=== PATIENT | male | born 1940 | race Caucasian/White ===

== ENCOUNTER 2024-09-25 15:04 | Emergency (ER) | payer SELFPAY ==
--- NOTE | ~2024-09-25 | XR_ITS ---
XR chest 1V portable Ordering provider: Lukas Nash MD History: 84 years Male with . Weakness . Comparison: None. FINDINGS: MEDIASTINUM: The cardiac silhouette is not enlarged. Left tripolar pacemaker. LUNGS: No infiltrates, effusions or pneumothorax. OTHER: No free air under the diaphragm. IMPRESSION: No acute cardiopulmonary pathology. Reviewed, dictated and finalized at location A.
--- NOTE | ~2024-09-25 | CT_ITS ---
CT brain wo con Ordering provider: Lukas Nash MD History: 84 years Male with . Tremors . Comparison: None. Technique: CT of the head without contrast. Radiation reduction technique utilized. The dose-length p roduct was 681 mGy-cm. FINDINGS: BRAIN PARENCHYMA AND CSF SPACES: No midline shift, mass effect or hemorrhage. The brain parenchyma a nd CSF spaces are otherwise normal. VISUALIZED PARANASAL SINUSES: Well aerated. MASTOIDS: Well aerated. BONES: The bones appear intact. SOFT TISSUES: Visualized nasopharynx is normal. Superficial soft tissues are normal. IMPRESSION: No acute intracranial findings. Reviewed, dictated and finalized at location A.
[2024-09-25 14:58] VITALS: BP 154/85; PULSE 77; RESP 17; O2SAT 97
[2024-09-25 15:05] VITALS: BP 154/85; PULSE 77; RESP 20; TEMP 36.4; O2SAT 96
[2024-09-25 15:09] VITALS: PULSE 71
--- NOTE | 2024-09-25 15:55 | ECG_ITS ---
Test Date: 2024-09-25 16:12:55 Measurements Intervals [place] Rate: 63 P: 250 HI: 173 QRS: -11 QRSD: 146 T: 45 QT: 477 QTc: 490 Interpretive Statements ELECTRONIC ATRIAL PACEMAKER ELECTRONIC VENTRICULAR PACEMAKER VENTRICULAR PREMATURE COMPLEX BASELINE ARTIFACT- I, II, III, AVR, AVL, AVF, V1-V6 NO FURTHER INTERPRETATION IS POSSIBLE ATYPICAL ECG NO PRIOR ECG FOR COMPARISON Electronically Signed On 09-26-2024 07:29:04 CDT by Guillermo Celeste D.O.
--- OUTSIDE RECORDS SUMMARY | 2024-09-25 16:05 | XMS_ITS | Encounter Summary ---
Author Name [facility] Address [address] [place] [address] Care Team Providers Care Director News Name Role Phone ABIGAIL ÁLVAREZ Primary Care Provider Unavailabl e Insurance Providers: All historical and current Section Date Range: From patient's date of to the date document was created. This section includes the names of all active insurance providers for the patient. Insurance Provider Type of Coverage Plan Name Start of Policy Coverage End of Policy Coverage Group Number Member ID Insurance Provider's Telephone Number Policy Feldman's Name Patient's Relationship to Policy Feldman MEDICARE (WNR) MEDICARE ([place]) PART A Feb 07, 2007 PART A [id number] [phone] ALIYAH MANDEL PATIENT MEDICARE (WNR) MEDICARE (M) PART A Feb 07, 2007 PART A [id number] [phone] ALIYAH MANDEL PATIENT Selected Encounter This section includes the information on record at [place] for the Encounter. Date/Time Encounter Type Encounter Description Reason Provider Source Sep 13, 2024 02:00 PM OFF/OP EST OCTOBER X REQ PHY/QHP CIED DEVICES ICD-10-CM I47.20 Ventricular tachycardia, unspecified TERRELL GUO Encounter Template Text not used by [place] Assessments - Encounter Diagnoses This section includes the primary and secondary diagnoses documented for the Encounter. Date/Time Primary/Secondary Diagnosis Diagnosis Name Provider Source Sep 13, 2024 03:53 PM PRIMARY Ventricular tachycardia, unspecified MARY ANNE PEÑA [facility] Sep 13, 2024 03:53 PM SECONDARY Encntr for adjust and mgmt of automatic implntbl card defib MARY ANNE PEÑA [facility] Sep 13, 2024 03:53 PM SECONDARY Left bundle-branch block, unspecified MARY ANNE PEÑA [facility] Sep 13, 2024 03:53 PM SECONDARY Presence of automatic (implantable) cardiac defibrillator CAREY PEÑALIN [facility] Plan of Treatment: Future Appointments (+ 6 months) and Future Tests (+/- 45 days) The Plan of Treatment section includes future care activities for the patient from all [place] treatmentfacilities. This section includes future appointments and future orders which are active, pending or scheduled. Future Appointments This section includes appointments that were scheduled to occur 6 months from the date of the Encounter, up to a maximum of 20 appointments. The data comes from all [place] treatment facilities. Appointment Date/Time Appointment Type Appointme nt Facility Name October 08, 2024 10:30 AM AMBULATORY - MEDICINE [facility] October 12, 2024 09:00 AM AMBULATORY - NONE [address] [facility] October 12, 2024 10:00 AM AMBULATORY - NONE [address] [facility] October 25, 2024 02:00 PM AMBULATORY - SURGERY [facility] Nov 15, 2024 02:00 PM AMBULATORY - MEDICINE [facility] Dec 13, 2024 10:00 AM [facility] Dec 21, 2024 10:30 AM AMBULAT[facility] - MEDICINE [facility] Feb 15, 2025 10:00 AM [facility] Feb 15, 2025 11:00 AM AMBULATORY - NONE [facility] Active, Pending, and Scheduled Orders This section includes a listing of several types of active, pending, and scheduled orders, including clinic medications orders, diagnostic test orders, procedure orders and consult orders; where the start date of the order is 45 days before the date of the Encounter or 45 days after the date of theEncount. The data comes from all [place] treatment facilities. Test Date/Time Test Type Test Details Facility Name Aug 31, 2024 12:48 AM Laboratory - Blood Bank Order TYPE & SCREEN - LAB BLOOD,PINK/PURPLE (7-9ML) WC [facility] October 12, 2024 12:00 AM Laboratory - Chemi stry Order LIPID PROFILE(HDL,TRIG,CH OL,LDL) GREEN TOP TUBE PLASMA JUAN DAVID [facility] October 12, 2024 12:00 AM Laboratory - Chemi stry Order CMP-NONFASTING (CO) GREEN TOP TUBE PLASMA [facility] Lab Results: +/- 30 days of the encounter This section includes the Chemistry and Hematology Lab Results on record with [place] for the patient. Radiology Reports and Pathology Reports are provided separately, in subsequent sections. Lab Results This section contains the Chemistry/Hematology Results that were resulted 30 days before or 30 daysafter the date of the Encounter. Date/Time Source Result Type Result - Unit Interpretation Reference Range Specimen Type Comment Sep 01, 2024 03:14 AM [facility] MAGNESIUM (mg/dL) PLASMA Specimen Type: PLASMA No comment entered. Ordering Provider: LEEROY HUGHES Report Released Date/Time: Aug 31, 2024 09:28 AM Reporting Lab: [address] [phone] Performing Lab: [address] [phone] MAGNESIUM (mg/dL) 2.1 mg/dL 1.6-2.6 Sep 01, 2024 03:14 AM [facility] COMPREHENSIVE METABOLIC PANEL PLASMA Specimen Type: PLASMA No comment entered. Ordering Provider: LEEROY HUGHES Report Released Date/Time: Aug 31, 2024 09:28 AM Reporting Lab: [address] [phone] Performing Lab: [address] [phone] *CREATININE 1.12 mg/dL 0.70-1.30 UREA NITROGEN mg/dL 17 mg/dL 9-25 GLUCOSE 109 mg/dL H 72-99 SODIUM 138 meq/L 136-145 POTASSIUM 4.3 meq/L 3.5-5 CALCIUM (mg/dL) 9.4 mg/dL 8.4-10.4 PROTEIN,TOTAL 7.1 g/dL 6.0-8.6 ALBUMIN 4.3 g/dL 3.4-5.0 TOTAL BILIRUBIN 1.0 mg/dL 0.2-1.2 ASPARTATE TRANSAMINASE 23 U/L 5-34 ALANINE AMINOTRANSFERASE 9 U/L 8-40 CHLORIDE 108 meq/L H 98-107 CO2 21 meq/L L 22-31 ALKALINE PHOSPHATASE 58 U/L 40-150 EGFR (CKD-EPI 2020) 66 Sep 01, 2024 03:14 AM [facility] CBC & DIFF BLOOD Specimen Type: BLOOD No comment entered. Ordering Provider: LEEROY HUGHES Report Released Date/Time: Aug 31, 2024 09:28 AM Reporting Lab: [facility] [address] [facility] [phone] Performing Lab: [address] [phone] WBC 15.00 10*3/uL H 3.6-11.2 RBC 4.10 10*6/uL 4.10-5.70 HGB 13.6 g/dL 13.1-16.8 HCT 37.7 L 38.2-48.4 MCV 92.0 fL 80.0-100.0 MCH 33.2 pg 27.0-34.0 MCHC 36.1 g/dL H 33.0-36.0 PLATELET COUNT 166 10*3/uL 150-400 MPV 10.9 fL 7.5-11.2 RDW 12.1 11.8-15.1 LYMPHOCYTES, AUTO% 30.0 NEUTROPHILS, AUTO % 61.0 MONOCYTES, AUTO% 7.9 MONOCYTES, ABSOLUTE 1.19 10*3/uL H 0.19-0. 8 NEUTROPHILS, ABSOLUTE 9.13 10*3/uL H 2.10- 8.00 EOSINOPHILS, ABSOLUTE 0.05 10*3/uL 0.00- 0.60 BASOPHILS, ABSOLUTE 0.03 10*3/uL 0.00-0. 20 EOSINOPHILS, AUTO% 0.3 BASOPHILS, AUTO% 0.2 LYMPHOCYTES, ABSOLUTE 4.50 10*3/uL 0.77- 4.50 IMMATURE GRANS, ABSOLUTE 0.09 10*3/uL H 0. 00-0.05 IMMATURE GRANS, AUTO % 0.6 Aug 31, 2024 05:45 AM [facility] ANTI-Xa ([place]) BLOOD Specimen Type: BLOOD Comment: Critical Values: Unfractionated Heparin: > 1.0 IU/mL For Low Molecular Weight Heparin reference ranges contact lab. Ordering Provider: LARRY BARRIOS Report Released Date/Time: Aug 27, 2024 12:18 PM Reporting Lab: [place] [phone] Performing Lab: [place] [phone] ANTI-Xa (CO) <0.04 [IU]/mL 0.3-0.7 Aug 31, 2024 05:45 AM [facility] MAGNESIUM (mg/dL) PLASMA Specimen Ty pe: PLASMA No comment entered. Ordering Provider: LEEROY HUGHES Report Released Date/Time: Aug 30, 2024 11:25 AM Reporting Lab: [place] [phone] Performing Lab: [place] [phone] MAGNESIUM (mg/dL) 2.2 mg/dL 1.6-2.6 Aug 31, 2024 05:45 AM [facility] COMPREHENSIVE METABOLIC PANEL PLASMA Specimen Type: PLASMA No comment entered. Ordering Provider: LEEROY HUGHES Report Released Date/Time: Aug 30, 2024 11:25 AM Reporting Lab: [place] [phone] Performing Lab: [place] [phone] *CREATININE 1.04 mg/dL 0.70-1.30 UREA NITROGEN mg/dL 18 mg/dL 9-25 GLUCOSE 93 mg/dL 72-99 SODIUM 140 meq/L 136-145 POTASSIUM 4.5 meq/L 3.5-5 CALCIUM (mg/dL) 9.2 mg/dL 8.4-10.4 PROTEIN,TOTAL 7.0 g/dL 6.0-8.6 ALBUMIN 4.1 g/dL 3.4-5.0 TOTAL BILIRUBIN 0.7 mg/dL 0.2-1.2 ASPARTATE TRANSAMINASE 12 U/L 5-34 ALANINE AMINOTRANSFERASE 8 U/L 8-40 CHLORIDE 108 meq/L H 98-107 CO2 24 meq/L 22-31 ALKALINE PHOSPHATASE 56 U/L 40-150 EGFR (CKD-EPI 2020) 72 Aug 31, 2024 05:45 AM [facility] CBC & DIFF BLOOD Specimen Type: BLOOD No comment entered. Ordering Provider: LEEROY HUGHES Report Released Date/Time: Aug 30, 2024 11:25 AM Reporting Lab: [address] [phone] Performing Lab: [address] [phone] WBC 9.50 10*3/uL 3.6-11.2 RBC 4.12 10*6/uL 4.10-5.70 HGB 14.0 g/dL 13.1-16.8 HCT 38.2 38.2-48.4 MCV 92.7 fL 80.0-100.0 MCH 34.0 pg 27.0-34.0 MCHC 36.6 g/dL H 33.0-36.0 PLATELET COUNT 158 10*3/uL 150-400 MPV 10.9 fL 7.5-11.2 RDW 12.4 11.8-15.1 LYMPHOCYTES, AUTO% 30.8 NEUTROPHILS, AUTO % 60.3 MONOCYTES, AUTO% 7.2 MONOCYTES, ABSOLUTE 0.68 10*3/uL 0.19-0. 8 NEUTROPHILS, ABSOLUTE 5.73 10*3/uL 2.10- 8.00 EOSINOPHILS, ABSOLUTE 0.06 10*3/uL 0.00- 0.60 BASOPHILS, ABSOLUTE 0.04 10*3/uL 0.00-0. 20 EOSINOPHILS, AUTO% 0.6 BASOPHILS, AUTO% 0.4 LYMPHOCYTES, ABSOLUTE 2.93 10*3/uL 0.77- 4.50 IMMATURE GRANS, ABSOLUTE 0.07 10*3/uL H 0. 00-0.05 IMMATURE GRANS, AUTO % 0.7 Aug 30, 2024 04:23 AM [facility] CMP-NONFASTING ([place]) PLASMA Specimen Type: PLASMA No comment entered. Ordering Provider: LARRY BARRIOS Report Released Date/Time: Aug 29, 2024 12:07 PM Reporting Lab: [address] [phone] Performing Lab: [address] [phone] *CREATININE 1.10 mg/dL 0.70-1.30 UREA NITROGEN mg/dL 20 mg/dL 9-25 GLUCOSE 95 mg/dL 72-99 SODIUM 138 meq/L 136-145 POTASSIUM 4.4 meq/L 3.5-5 CALCIUM (mg/dL) 8.6 mg/dL 8.4-10.4 PROTEIN,TOTAL 6.4 g/dL 6.0-8.6 ALBUMIN 3.8 g/dL 3.4-5.0 TOTAL BILIRUBIN 0.9 mg/dL 0.2-1.2 ASPARTATE TRANSAMINASE 13 U/L 5-34 ALANINE AMINOTRANSFERASE 8 U/L 8-40 CHLORIDE 110 meq/L H 98-107 CO2 21 meq/L L 22-31 ALKALINE PHOSPHATASE 52 U/L 40-150 EGFR (CKD-EPI 2020) 67 Aug 30, 2024 04:23 AM [facility] CBC & DIFF BLOOD Specimen Type: BLOOD No comment entered. Ordering Provider: LARRY BARRIOS Report Released Date/Time: Aug 29, 2024 12:07 PM Reporting Lab: [facility] [address] [facility] [phone] Performing Lab: [address] [phone] WBC 8.80 10*3/uL 3.6-11.2 RBC 3.99 10*6/uL L 4.10-5.70 HGB 13.4 g/dL 13.1-16.8 HCT 37.0 L 38.2-48.4 MCV 92.7 fL 80.0-100.0 MCH 33.6 pg 27.0-34.0 MCHC 36.2 g/dL H 33.0-36.0 PLATELET COUNT 154 10*3/uL 150-400 MPV 10.8 fL 7.5-11.2 RDW 12.3 11.8-15.1 LYMPHOCYTES, AUTO% 30.9 NEUTROPHILS, AUTO % 58.5 MONOCYTES, AUTO% 8.5 MONOCYTES, ABSOLUTE 0.75 10*3/uL 0.19-0. 8 NEUTROPHILS, ABSOLUTE 5.17 10*3/uL 2.10- 8.00 EOSINOPHILS, ABSOLUTE 0.08 10*3/uL 0.00- 0.60 BASOPHILS, ABSOLUTE 0.03 10*3/uL 0.00-0. 20 EOSINOPHILS, AUTO% 0.9 BASOPHILS, AUTO% 0.3 LYMPHOCYTES, ABSOLUTE 2.73 10*3/uL 0.77- 4.50 IMMATURE GRANS, ABSOLUTE 0.08 10*3/uL H 0. 00-0.05 IMMATURE GRANS, AUTO % 0.9 Aug 29, 2024 04:23 AM [facility] CMP-NONFASTING (CO) PLASMA Specimen Type: PLASMA No comment entered. Ordering Provider: LARRY BARRIOS Report Released Date/Time: Aug 28, 2024 10:54 AM Reporting Lab: [address] Performing Lab: [address] *CREATININE 1.04 mg/dL 0.70-1.30 UREA NITROGEN mg/dL 15 mg/dL 9-25 GLUCOSE 95 mg/dL 72-99 SODIUM 139 meq/L 136-145 POTASSIUM 4.7 meq/L 3.5-5 CALCIUM (mg/dL) 8.8 mg/dL 8.4-10.4 PROTEIN,TOTAL 6.7 g/dL 6.0-8.6 ALBUMIN 3.9 g/dL 3.4-5.0 TOTAL BILIRUBIN 0.7 mg/dL 0.2-1.2 ASPARTATE TRANSAMINASE 17 U/L 5-34 ALANINE AMINOTRANSFERASE 8 U/L 8-40 CHLORIDE 107 meq/L 98-107 CO2 23 meq/L 22-31 ALKALINE PHOSPHATASE 50 U/L 40-150 EGFR (CKD-EPI 2020) 72 Aug 29, 2024 04:23 AM [facility] CBC & DIFF BLOOD Specimen Type: BLOOD No comment entered. Ordering Provider: LARRY BARRIOS Report Released Date/Time: Aug 28, 2024 10:54 AM Reporting Lab: [address] [phone] Performing Lab: [address] [phone] WBC 8.50 10*3/uL 3.6-11.2 RBC 4.28 10*6/uL 4.10-5.70 HGB 14.3 g/dL 13.1-16.8 HCT 39.7 38.2-48.4 MCV 92.8 fL 80.0-100.0 MCH 33.4 pg 27.0-34.0 MCHC 36.0 g/dL 33.0-36.0 PLATELET COUNT 164 10*3/uL 150-400 MPV 11.1 fL 7.5-11.2 RDW 12.6 11.8-15.1 LYMPHOCYTES, AUTO% 27.9 NEUTROPHILS, AUTO % 62.3 MONOCYTES, AUTO% 8.4 MONOCYTES, ABSOLUTE 0.72 10*3/uL 0.19-0. 8 NEUTROPHILS, ABSOLUTE 5.32 10*3/uL 2.10- 8.00 EOSINOPHILS, ABSOLUTE 0.05 10*3/uL 0.00- 0.60 BASOPHILS, ABSOLUTE 0.02 10*3/uL 0.00-0. 20 EOSINOPHILS, AUTO% 0.6 BASOPHILS, AUTO% 0.2 LYMPHOCYTES, ABSOLUTE 2.38 10*3/uL 0.77- 4.50 IMMATURE GRANS, ABSOLUTE 0.05 10*3/uL 0. 00-0.05 IMMATURE GRANS, AUTO % 0.6 Aug 28, 2024 04:50 AM [facility] T4 FREE SERUM Specimen Type: SERUM No comment entered. Ordering Provider: LARRY BARRIOS Report Released Date/Time: Aug 27, 2024 03:47 PM Reporting Lab: [address] [phone] Performing Lab: [address] [phone] T4 FREE 0.8 ng/dL 0.7-1.48 Aug 28, 2024 04:50 AM [facility] TSH SERUM Specimen Type: SERUM No comment entered. Ordering Provider: LARRY BARRIOS Report Released Date/Time: Aug 27, 2024 03:47 PM Reporting Lab: [address] [phone] Performing Lab: [place] [phone] *TSH 1.66 u[IU]/mL 0.47-5.00 Aug 28, 2024 04:50 AM [facility] CMP-NONFASTING ([place]) PLASMA Specimen Type: PLASMA No comment entered. Ordering Provider: LUIS YANES Report Released Date/Time: Aug 28, 2024 03:03 AM Reporting Lab: [address] [phone] Performing Lab: [address] [phone] *CREATININE 0.87 mg/dL 0.70-1.30 UREA NITROGEN mg/dL 13 mg/dL 9-25 GLUCOSE 92 mg/dL 72-99 SODIUM 138 meq/L 136-145 POTASSIUM 4.2 meq/L 3.5-5 CALCIUM (mg/dL) 8.5 mg/dL 8.4-10.4 PROTEIN,TOTAL 6.5 g/dL 6.0-8.6 ALBUMIN 3.7 g/dL 3.4-5.0 TOTAL BILIRUBIN 0.7 mg/dL 0.2-1.2 ASPARTATE TRANSAMINASE 24 U/L 5-34 ALANINE AMINOTRANSFERASE 9 U/L 8-40 CHLORIDE 109 meq/L H 98-107 CO2 22 meq/L 22-31 ALKALINE PHOSPHATASE 51 U/L 40-150 EGFR (CKD-EPI 2020) 86 Aug 28, 2024 04:50 AM [facility] CBC & DIFF BLOOD Specimen Type: BLOOD No comment entered. Ordering Provider: LUIS YANES Report Released Date/Time: Aug 28, 2024 03:03 AM Reporting Lab: [address] [phone] Performing Lab: [address] [phone] WBC 9.20 10*3/uL 3.6-11.2 RBC 4.23 10*6/uL 4.10-5.70 HGB 14.1 g/dL 13.1-16.8 HCT 39.6 38.2-48.4 MCV 93.6 fL 80.0-100.0 MCH 33.3 pg 27.0-34.0 MCHC 35.6 g/dL 33.0-36.0 PLATELET COUNT 174 10*3/uL 150-400 MPV 10.7 fL 7.5-11.2 RDW 12.5 11.8-15.1 LYMPHOCYTES, AUTO% 28.9 NEUTROPHILS, AUTO % 60.5 MONOCYTES, AUTO% 9.4 MONOCYTES, ABSOLUTE 0.86 10*3/uL H 0.19-0. 8 NEUTROPHILS, ABSOLUTE 5.55 10*3/uL 2.10- 8.00 EOSINOPHILS, ABSOLUTE 0.05 10*3/uL 0.00- 0.60 BASOPHILS, ABSOLUTE 0.02 10*3/uL 0.00-0. 20 EOSINOPHILS, AUTO% 0.5 BASOPHILS, AUTO% 0.2 LYMPHOCYTES, ABSOLUTE 2.66 10*3/uL 0.77- 4.50 IMMATURE GRANS, ABSOLUTE 0.05 10*3/uL 0. 00-0.05 IMMATURE GRANS, AUTO % 0.5 Aug 27, 2024 02:14 PM [facility] ACT.CLOTTING TIME BLOOD Specimen Ty pe: BLOOD No comment entered. Ordering Provider: JEROME DOTY Report Released Date/Time: Aug 27, 2024 02:44 PM Reporting Lab: [address] [address] Performing Lab: [place] [phone] ACT.CLOTTING TIME 153 s H 74-137 Aug 27, 2024 11:30 AM [facility] hsTROP-CO PLASMA Specimen Type: PLASMA Comment: TROP-T-HS Called to: Velvet Bartlett RN at: 1213 on: 08/27/24 by: Jasvir Cunningham Result read back to comply with Joint Commission Ordering Provider: LARRY BARRIOS Report Released Date/Time: Aug 27, 2024 09:20 AM Reporting Lab: [place] [phone] Performing Lab: [place] [phone] hsTROP-CO 1017 HH See Interpretation Aug 27, 2024 08:55 AM [facility] MRSA SURVL NARES DNA NARES Specimen Type: NARES No comment entered. Ordering Provider: JEROME DOTY Report Released Date/Time: Aug 27, 2024 08:46 AM Reporting Lab: [place] [phone] Performing Lab: [place] [phone] MRSA SURVL NARES DNA Negative Negative Aug 27, 2024 08:20 AM [facility] URINALYSIS ([place],EK) URINE Spec imen Type: URINE Comment: Microscopic not indicated Ordering Provider: RYAN HALL Report Released Date/Time: Aug 27, 2024 06:51 AM Reporting Lab: [place] [phone] Performing Lab: [place] [phone] *URINE COLOR Light-Yellow *URINE APPEARANCE Clear Clear *URINE PROTEIN Negative mg/dL Negative-T race *URINE LEUKOCYTE Negative Negative *URINE NITRITE Negative Negative *URINE BLOOD Negative Negative *URINE GLUCOSE Negative mg/dL Negative *URINE KETONES Negative mg/dL Negative *URINE PH 7.0 5.0-8.0 *URINE SPECIFIC GRAVITY 1.011 1.005-1. 030 *URINE BILIRUBIN Negative Negative *URINE UROBILINOGEN Normal mg/dL Normal Aug 27, 2024 06:40 AM [facility] PT/INR PLASMA Specimen Type: PLASMA No comment entered. Ordering Provider: RYAN HALL Report Released Date/Time: Aug 27, 2024 06:51 AM Reporting Lab: [address] [phone] Performing Lab: [address] [address] *INR 1.0 {INR} *PT 11.4 s 9.4-12.5 Aug 27, 2024 06:40 AM [facility] APTT PLASMA Specimen Type: PLASMA No comment entered. Ordering Provider: RYAN HALL Report Released Date/Time: Aug 27, 2024 06:51 AM Reporting Lab: [place] [phone] Performing Lab: [place] [phone] APTT 29.8 s 26.7-39.9 Aug 27, 2024 06:40 AM [facility] COMPREHENSIVE METABOLIC PANEL PLASMA Specimen Type: PLASMA No comment entered. Ordering Provider: RYAN HALL Report Released Date/Time: Aug 27, 2024 06:51 AM Reporting Lab: [address] [phone] Performing Lab: [place] [phone] *CREATININE 1.14 mg/dL 0.70-1.30 UREA NITROGEN mg/dL 17 mg/dL 9-25 GLUCOSE 156 mg/dL H 72-99 SODIUM 140 meq/L 136-145 POTASSIUM 4.1 meq/L 3.5-5 CALCIUM (mg/dL) 9.4 mg/dL 8.4-10.4 PROTEIN,TOTAL 8.0 g/dL 6.0-8.6 ALBUMIN 4.6 g/dL 3.4-5.0 TOTAL BILIRUBIN 0.7 mg/dL 0.2-1.2 ASPARTATE TRANSAMINASE 19 U/L 5-34 ALANINE AMINOTRANSFERASE 11 U/L 8-40 CHLORIDE 108 meq/L H 98-107 CO2 21 meq/L L 22-31 ALKALINE PHOSPHATASE 68 U/L 40-150 EGFR (CKD-EPI 2020) 64 Aug 27, 2024 06:40 AM [facility] hsTROP-CO PLASMA Specimen Type: PLASMA No comment entered. Ordering Provider: RYAN HALL Report Released Date/Time: Aug 27, 2024 06:51 AM Reporting Lab: [place] [phone] Performing Lab: [place] [phone] hsTROP-CO 15 See Interpretation Aug 27, 2024 06:40 AM [facility] CBC & DIFF BLOOD Specimen Type: BLOOD No comment entered. Ordering Provider: RYAN HALL Report Released Date/Time: Aug 27, 2024 06:51 AM Reporting Lab: [place] [phone] Performing Lab: [place] [phone] WBC 15.70 10*3/uL H 3.6-11.2 RBC 4.80 10*6/uL 4.10-5.70 HGB 15.9 g/dL 13.1-16.8 HCT 44.9 38.2-48.4 MCV 93.5 fL 80.0-100.0 MCH 33.1 pg 27.0-34.0 MCHC 35.4 g/dL 33.0-36.0 PLATELET COUNT 236 10*3/uL 150-400 MPV 11.1 fL 7.5-11.2 RDW 12.5 11.8-15.1 NEUTROPHILS 55.6 LYMPHOCYTES 13.9 MONOCYTES 5.2 BASOPHILS 0.9 MYELOCYTES 0.9 ANISOCYTOSIS 1+ ATYPICAL LYMPHOCYTES 23.5 PLT (ESTM)-CO/EK Adequate ADEQUATE NEUTROPHILS, ABSOLUTE(M) 8.73 10*3/uL H 2. 10-8.00 IMMATURE GRANS, ABSOLUTE(M) 0.14 H 0.00 -0.05 LYMPHOCYTES, ABSOLUTE(M) 5.87 10*3/uL H 0. 77-4.50 MONOCYTES, ABSOLUTE(M) 0.82 10*3/uL H 0.19 -0.80 BASOPHILS, ABSOLUTE(M) 0.14 10*3/uL 0.00 -0.20 Aug 27, 2024 06:40 AM [facility] NTproBNP ([place]) PLASMA Specimen Typ e: PLASMA No comment entered. Ordering Provider: RYAN HALL Report Released Date/Time: Aug 27, 2024 06:51 AM Reporting Lab: [place] [phone] Performing Lab: [address] [phone] NTproBNP ([place]) 410 pg/mL -See Interpre tation Aug 27, 2024 06:40 AM [facility] PATHOLOGIST REVIEW BLOOD Specimen T ype: BLOOD Comment: Reviewed by Dr. Chepe Yu: Reactive Lymphocytes. Ordering Provider: RYAN HALL Report Released Date/Time: Aug 27, 2024 06:51 AM Reporting Lab: [address] [phone] Performing Lab: [address] [phone] PATHOLOGIST REVIEW comment Aug 27, 2024 06:40 AM [facility] ANTI-Xa ([place]) BLOOD Specimen Type: BLOOD Comment: Critical Values: Unfractionated Heparin: > 1.0 IU/mL For Low Molecular Weight Heparin reference ranges contact lab. Ordering Provider: RYAN HALL Report Released Date/Time: Aug 27, 2024 07:24 AM Reporting Lab: [address] [phone] Performing Lab: [address] [address] ANTI-Xa ([place]) <0.04 [IU]/mL 0.3-0.7 Social History: Smoking Status (Most current) and Tobacco Use (All prior to encounter date) This section includes the most current, and the historical, smoking and tobacco- related health factors from the [facility] facility where the Encounter took place. Current Smoking Status This section includes the most current smoking, or tobacco-related health factor, from the [facility] facility where the Encounter took place. Date/Time Current Smoking Status Comment [place] [facility] Apr 30, 2023 01:00 PM VA-TOBACCO FORMER USER [facility] Tobacco Use History This section includes a history of the smoking, or tobacco-related health factors, that were collected on or before the date of the Encounter. The data comes from the [facility] facility where the Encounter took place. Date/Time Smoking Status/Tobacco Use Comment F acility Apr 30, 2023 01:00 PM VA-TOBACCO QUIT 15 YRS OR MORE [facility] Apr 04, 2022 09:15 AM VA-TOBACCO FORMER USER [facility] Apr 04, 2022 09:15 AM VA-TOBACCO QUIT 15 YRS OR MORE [facility] Jul 18, 2021 10:13 AM INPT TOBACCO SCREENED NEGATIVE [facility] Apr 27, 2021 07:00 AM INPT TOBACCO SCREENED NEGATIVE [facility] October 31, 2020 02:30 PM INPT TOBACCO SCREENED NEGATIVE [facility] October 08, 2020 10:22 AM INPT TOBACCO SCREENED NEGATIVE [facility] October 07, 2020 07:22 AM VA-TOBACCO FORMER USER [facility] Sep 30, 2020 11:06 AM INPT TOBACCO SCREENED NEGATIVE [facility] Sep 29, 2020 04:05 PM VA-TOBACCO NEVER USED [facility] Jan 17, 2020 10:21 AM VA-TOBACCO FORMER USER [facility] Jan 17, 2020 10:21 AM VA-TOBACCO QUIT 15 YRS OR MORE [facility] Advance Directives: All historical and current Section Date Range: From patient's date of to the date document was created. This section includes ALL of a patient's completed or amended [place] Advance and Rescinded Directives. The entries below indicate that a directive exists for the patient, but an actual copy is not included with this document. The data comes from all [facility]. Date Advance Directives Provider Source October 22, 2022 ADVANCE DIRECTIVE DISCUSSION ARGELIA CHAVEZ [facility] Apr 04, 2022 ADVANCE DIRECTIVE DISCUSSION RAY ROQUE [facility] Sep 30, 2020 ADVANCE DIRECTIVE DISCUSSION ILYA BROWN [facility] Jul 26, 2020 ADVANCE DIRECTIVE DISCUSSION FABY TAMEZ [facility] Apr 17, 2020 ADVANCE DIRECTIVE DISCUSSION LINETTE RAMIREZ [facility] Jan 17, 2020 ADVANCE DIRECTIVE DISCUSSION ASHLEYDA DIANA MCKEON [facility] Feb 24, 2009 ADVANCE DIRECTIVE HECTOR [facility] Radiology Reports: +/- 30 days of the encounter Radiology Reports For cases when an order for radiology services may have been completed prior to the date of the Encounter, the report list includes the Radiology Reports that were completed up to 30 days before dateof the Encounter. For cases when an order for radiology services may have been completed after the date of the Encounter, the report list also includes the Radiology Reports that were completed up to30 days after date of the Encounter. The data comes from all [facility] treatment facilities. 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 Report Status: Verified Date Reported: SEP 01, 2024 Date Verified: SEP 01, 2024 Taker Off Hemp Fiber E-Sig:/ES/Aubrie Garcia MD PhD Report: History: Pacemaker placement. 2 views of the chest. Comparison: 08/31/2024 through 08/27/2024. Findings: No pneumothorax. Lungs are clear. 3-lead cardiac generator placement without evidence of complication. Cardiac size, pulmonary vessels, and soft tissues are unremarkable. Atherosclerosis. Osseous structures demonstrate degenerative changes. Impression: Cardiac generator placement without complication. 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 Single view of the chest. Comparison: 08/31/2024. Findings: No pneumothorax. Lungs are clear. 3-lead cardiac generator placement without evidence of complication. Cardiac size, pulmonary vessels, and soft tissues are unremarkable. Atherosclerosis. Osseous structures demonstrate degenerative changes. Impression: Cardiac generator placement without complication. READING PHYSICIAN: Aubrie Garcia 09/01/2024 7:21 AM Primary Diagnostic Code: NO ALERT REQUIRED Primary Interpreting Staff: Aubrie Garcia MD PhD, CHIEF, CLINICAL SUPPORT (Taker Off Hemp Fiber) /AUBRIE VELEZ [facility] Aug 31, 2024 05:05 AM CHEST 1 VIEW: ALIYAH MANDEL [id number] -1940 M Exm Date: AUG 31, 2024@05:05 Req Phys: LEEROY HUGHES Loc: ICU PCU MED-CO/08-31-2024@07:3 Img Loc: CO-CASE SUPERVISOR Service: [facility] [place] [address] (Case [id number] COMPLETE) CHEST 1 VIEW (RAD Detailed) CPT:41396 Reason for Study: Assess pulmonary function s/p pacemaker AICD placement Clinical History: Report Status: Verified Date Reported: AUG 31, 2024 Date Verified: AUG 31, 2024 Taker Off Hemp Fiber E-Sig:/SANTIAGO/Aubrie Garcia MD PhD Report: History: AICD placement. Single AP portable view of the chest was obtained. Comparison: 08/27/2024. Findings: Unchanged benign calcified granuloma in the right upper lobe. Lungs are otherwise clear. Heart is normal in size and contour. Pulmonary vessels are normal in size and caliber. Osseous and soft tissues are normal. Impression: No acute findings. READING PHYSICIAN: Aubrie Garcia 08/31/2024 7:27 AM Primary Diagnostic Code: NO ALERT REQUIRED Primary Interpreting Staff: Aubrie Garcia MD PhD, CHIEF, CLINICAL SUPPORT (Taker Off Hemp Fiber) /AUBRIE VELEZ [facility] Aug 27, 2024 06:51 AM CHEST 1 VIEW: ALIYAH MANDEL [id number] -1940 M Exm Date: AUG 27, 2024@06:51 Req Phys: RYAN HALL Loc: CO-ED (Req'g Loc) Img Loc: CO-CASE SUPERVISOR Service: Unknown [place] [address] (Case [id number] COMPLETE) CHEST 1 VIEW (RAD Detailed) CPT:42118 Proc Modifiers : PORTABLE Reason for Study: vtach Clinical History: If ordering Portable X-Ray call Tech at [id number] for prompt response Report Status: Verified Date Reported: AUG 27, 2024 Date Verified: AUG 27, 2024 Taker Off Hemp Fiber E-Sig:/ES/Aubrie Garcia MD PhD Report: History: Ventricular tachycardia. Single view of the chest. Comparison: 05/20/2023. Findings: Lungs are clear. Mild cardiomegaly without pulmonary edema. Soft tissues are unremarkable. Atherosclerosis. Osseous structures demonstrate degenerative changes. Impression: Mild cardiomegaly without pulmonary edema. READING PHYSICIAN: Aubrie Garcia 08/27/2024 7:29 AM Primary Diagnostic Code: NO ALERT REQUIRED Primary Interpreting Staff: Aubrie Garcia MD PhD, CHIEF, CLINICAL SUPPORT (Taker Off Hemp Fiber) /MDT AUBRIE GARCIA [facility] Encounter Notes: All associated encounter notes This section contains the clinical notes associated to the Encounter. Date/Time Encounter Note(s) Provider Source Sep 13, 2024 02:02 PM ELECTROPHYSIOLOGY NOTE: LOCAL TITLE: CO-CARDIO EP PACEMAKER CLINIC NOTE STANDARD TITLE: ELECTROPHYSIOLOGY NOTE DATE OF NOTE: SEP 13, 2024@14:02 ENTRY DATE: SEP 13, 2024@14:02:42 AUTHOR: MARY ANNE PEÑA COSIGNER: URGENCY: STATUS: COMPLETED CO-CARDIO EP PACEMAKER CLINIC NOTE Has ADDENDA CLINIC VISIT FOR CARDIOVASCULAR IMPLATABLE ELECTRONIC DEVICE (CIED) MANAGEMENT ONLY Date: 09/13/2024 REASON FOR DEVICE CLINIC VISIT This 84 year old MALE presents to the CIED clinic today for wound check and in-office interrogation of his recently implanted Medtronic REMELT OPERATOR- D. DEVICE HISTORY Medtronic REMELT OPERATOR-D was implanted by Dr. Perry on 08/31/2024 for secondary prevention of sudden cardiac related to sustained monomorphic VT. History of reduced ejection fraction and chronic left bundle branch block. The patient is registered in the [place] National Cardiac Device Surveillance Program(NCDSP) portal and is going to participate in our 90-day CIED remote monitoring program. PATIENT ASSESSMENT/COMMENTS The patient denies any defibrillator or remote monitoring related issues or concerns. Patient does report that he needs help setting up the [employer] oscar today while in clinic. Defibrillator pocket site well approximated with surgical glue present over the incision. Bruising and pocket edema noted. No redness or drainage seen. - Picture of incision has been captured and placed in CPRS for documentation. PAST MEDICAL HISTORY Active Problem(s): Coronary arteriosclerosis History of placement of stent for coronary artery disease Comment: Multiple stents Benign essential hypertension Benign prostatic hypertrophy with outflow obstruction H/O: angina pectoris Hyperlipidemia Aortic valve regurgitation Current drinker Hiatal hernia GERD - Gastro-Esophageal Reflux Disease (SCT [id number]) Constipation Exposure to potentially hazardous substance Difficulty in Walking, not elsewhere classified ACTIVE MEDICATIONS Admission Medication Reconciliation Outpatient includes Prescriptions and Non-VA meds Inpatient includes Unit Dose and IV Medications Ordered for Both Outpatient and Inpatient ------ ...None Outpt Meds with No Corresponding Inpt Meds ---- Amiodarone hcl (pacerone) 200mg tab 400mg 2 tablets po daily Aspirin 81mg ec tab (non-va) 81mg mouth once a day Carboxymethylcellulose 0.5%(pf)op kandice ud 1 drop both eyes qid Cephalexin 500mg cap 1 capsule po bid Cholecalcif 25mcg (d3-1,000unit) tab 1 tablet po qam Cyanocobalamin 1000mcg tab 1 tablet po qam Isosorbide mononitrate 120mg sa tab 1 tablet po qday Lisinopril 20mg tab 10mg 0.5 tablet po qam Metoprolol succinate 50mg sa tab 25mg 0.5 tablet po qam Nitroglycerin 0.4mg sl tab 1 tablet sl qam prn Omeprazole 20mg ec cap 1 capsule po qam Ranolazine 1000mg sa tab 1 tablet po bid Rosuvastatin ca 40mg tab 1 tablet po qhs Spironolactone 25mg tab 1 tablet po qam Tamsulosin hcl 0.4mg cap 1 capsule po qday Inpt Meds Only (that are not on Outpt) ------ ...None DEVICE INTERROGATION VENDOR: Gengo MODEL: Jarreau w/serial number [id number] DOI: 08/31/2024 UNDERLYING RHYTHM: SB MODE: DDDR LR: 60 bpm UR: 130 bpm BATTERY: % REMAININ.0 years Defib IMP: 66 ohms. P WAVE: 3.9mV IMP: 418 ohms THRESHOLD: 1.0V @ 0.4ms A-PACED: 97% V-PACED: 99.7% R WAVE: 8.3mV IMP: 361 ohms THRESHOLD: 0.75V @ 0.4ms LV IMP: 665 ohms THRESHOLD: 1.25V @ 0.4ms. Mode Switch: - 0.0% COMMENTS: - No VT/VF noted. - 10.2 PVC/hr CHANGES: - VT Monitor zone ON at 133 bpm. - LV Amplitude Safety Margin from +Auto to +0.5V. - Weekly ATP alert at 1/week. - AT/AF Episode Alerts ON. - Monitored VT Episode Alert ON. DEVICE ASSESSMENT AND PLAN 1. Properly functioning Medtronic REMELT OPERATOR-D - continue 90-day remote monitoring. - patient provided education regarding device function/interrogation findings. - Leads and Device are MRI conditional 6 weeks post implant. 2. Went over current restrictions: - Continue to monitor incision site for redness, edema, and drainage. - If present contact the office JUAN DAVID. - Okay to shower, but no scrubbing incision site, or no soap/lotion near incision site. - No lifting more than 20 lbs with left arm for another 2 weeks. - Okay to sleep without sling. - No swimming, hot tubs, etc. until wound completely healed. - No lifting left/right arm greater than 90 degrees or reaching behind the back for another 2-4 weeks. 3. Remote Monitoring - Discussed remote monitoring via [facility]. - Went over every 91 day summary reports and alerts. - Alerted that patient will not be contacted unless something abnormal is found and further work-up is needed. - Discussed importance of setting up the [employer] [facility] Oscar and keeping it open in the background. - Discussed contacting Medtronic if unable to set up. - Attempted to help patient set-up the Oscar while in clinic but unable to download the [employer] oscar due to patient not knowing his [employer] password. - Have asked patient to go home and have family help them set it up JUAN DAVID. 4. CIED ICD Shock Plan - Went over what to do if patient experiences: a.) 1 shock vs. b.) 2+ shocks - Advised when to call device nurse vs. 911 - Demonstrated device toning. - Shock Plan Handout given. - Device RN Contact Information Given. 5. The patient follows with Hilaria Huang NP in the Cardiology Clinic and will follow-up with Dr. Perry in the Electrophysiology Clinic. Followup appointments/consults/tests: C DEVICE CLINIC: 3 months in EP 2 w/MDT ICD. 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 This device RN works in collaboration with EP providers and all in-office and remote CIED interrogations are reviewed in detail with an EP provider for recommendations and orders for CIED programming changes if indicated. EP provider added as signer for review. /santiago/ MARY ANNE PEÑA REGISTERED NURSE Signed: 09/13/2024 15:53 Receipt Acknowledged By: 09/19/2024 15: /es/ TERRELL GUO Nurse Practitioner 09/19/2024 ADDENDUM STATUS: COMPLETED Reviewed in office device interrogation in detail with device RN and agree with above findings. /santiago/ TERRELL GUO Nurse Practitioner Signed: 09/19/2024 15:07 MARY ANNE PEÑA [facility]
--- OUTSIDE RECORDS SUMMARY | 2024-09-25 16:05 | XMS_ITS | Encounter Summary ---
Author Name [facility] Organization [facility] Address [address] [place] [address] Care Team Providers Care Chip Bin Operator Name Role Phone HENRI ABIGAIL Primary Care Provider Unavailabl e Insurance Providers: [...] PART A Feb 07, 2007 PART A [id number] [phone] ALIYAH MANDEL PATIENT MEDICARE (WNR) MEDICARE (M) PART A Feb 07, 2007 PART A [id number] [phone] TEQUILA ALIYAH PATIENT Selected Encounter This section includes the information on record at ID for the Encounter. Date/Time Encounter Type Encounter Description Reason Provider Source Aug 27, 2024 01:00 PM OCCLUSIVE DEVICE IN VEIN ART CARDIAC CATHETERIZATION ICD-10-CM I47.20 Ventricular tachycardia, unspecified DAMARI MASON IHToni Encounter Template Text not used by ID Assessments - Encounter Diagnoses This section includes the primary and secondary diagnoses documented for the Encounter. Date/Time Primary/Secondary Diagnosis Diagnosis Name Provider Source Aug 30, 2024 08:44 AM PRIMARY Ventricular tachycardia, unspecified EULALIA SERVIN [facility] Aug 30, 2024 08:44 AM SECONDARY Chest pain, unspecified EULALIA SERVIN [facility] Plan of Treatment: Future Appointments (+ 6 months) and Future Tests (+/- 45 days) The Plan of Treatment section includes future care activities for the patient [facility] This section includes future appointments and future orders which are active, pending or scheduled. Future Appointments This section includes appointments that were scheduled to occur 6 months from the date of the Encounter, up to a maximum of 20 appointments. The data comes from all [facility]. Appointment Date/Time Appointment Type Appointme nt Facility Name Sep 02, 2024 01:00 PM AMBULATORY - NONE [address] [facility] Sep 13, 2024 02:00 PM AMBULATORY - MEDICINE [facility] October 08, 2024 10:30 AM AMBULATORY - MEDICINE [facility] October 12, 2024 09:00 AM AMBULATORY - NONE [address] [facility] October 12, 2024 10:00 AM AMBULATORY - NONE [address] [facility] October 25, 2024 02:00 PM AMBULATORY - SURGERY [facility] Nov 15, 2024 02:00 PM AMBULATORY - MEDICINE [facility] Dec 13, 2024 10:00 AM AMBULATORY - MEDICINE [facility] Dec 21, 2024 10:30 AM AMBULATORY - MEDICINE [facility] Feb 15, 2025 10:00 AM AMBULATORY - MEDICINE [facility] Feb 15, 2025 11:00 AM AMBULATORY - NONE [facility] Active, Pending, and Scheduled Orders This section includes a listing of several types of active, pending, and scheduled orders, including clinic medications orders, diagnostic test orders, procedure orders and consult orders; where the start date of the order is 45 days before the date of the Encounter or 45 days after the date of theEncounter. The data comes from all [facility]. Test Date/Time Test Type Test Details Facility Name Jul 29, 2024 02:19 PM Procedure Order CP CO-ECHO FUTURE CARE ([place]) CP CO-ECHO FUTURE CARE-[id number] Proc Manager Grant's Choice [facility] Jul 29, 2024 02:19 PM Procedure Order EKG OUTPAT IENT-CO EKG Needed on: Jul Urgency: ROUTINE Diagnosis/Reason: Ischemia (125.9) [facility] Aug 31, 2024 12:48 AM Laboratory - Blood Bank Order TYPE & SCREEN - LAB BLOOD,PINK/PURPLE (7-9ML) WC [facility] Lab Results: +/- 30 days of the encounter This section includes the Chemistry and Hematology Lab Results on record with ID for the patient. Radiology Reports and Pathology Reports are provided separately, in subsequent sections. Lab Results This section contains the Chemistry/Hematology Results that were resulted 30 days before or 30 daysafter the date of the Encounter. Date/Time Source Result Type Result - Unit Interpretation Reference Range Specimen Type Comment Sep 01, 2024 03:14 AM [facility] MAGNESIUM (mg/dL) PLASMA Specimen Type: PLASMA No comment entered. Ordering Provider: LEEROY HUGHES Report Released Date/Time: Aug 31, 2024 09:28 AM Reporting Lab: [address] [address] Performing Lab: [address] [address] MAGNESIUM (mg/dL) 2.1 mg/dL 1.6-2.6 Sep 01, 2024 03:14 AM [facility] COMPREHENSIVE METABOLIC PANEL PLASMA Specimen Type: PLASMA No comment entered. Ordering Provider: LEEROY HUGHES Report Released Date/Time: Aug 31, 2024 09:28 AM Reporting Lab: [address] [address] Performing Lab: [address] [address] *CREATININE 1.12 mg/dL 0.70-1.30 UREA NITROGEN mg/dL [...] 2020) 66 Sep 01, 2024 03:14 AM [facility] CBC & DIFF BLOOD Specimen Type: BLOOD No comment entered. Ordering Provider: LEEROY HUGHES Report Released Date/Time: Aug 31, 2024 09:28 AM Reporting Lab: [address] [address] Performing Lab: [address] [address] WBC 15.00 10*3/uL H 3.6-11.2 RBC 4.10 [...] % 0.6 Aug 31, 2024 05:45 AM [facility] ANTI-Xa (CO) BLOOD Specimen Type: BLOOD Comment: Critical Values: Unfractionated Heparin: > 1.0 IU/mL For Low Molecular Weight Heparin reference ranges contact lab. Ordering Provider: ALRRY BARRIOS Report Released Date/Time: Aug 27, 2024 12:18 PM Reporting Lab: [place] [phone] Performing Lab: [place] [phone] ANTI-Xa (CO) <0.04 [IU]/mL 0.3-0.7 Aug 31, 2024 05:45 AM [facility] MAGNESIUM (mg/dL) PLASMA Specimen Ty pe: PLASMA No comment entered. Ordering Provider: LEEROY HUGHES Report Released Date/Time: Aug 30, 2024 11:25 AM Reporting Lab: [place] [phone] Performing Lab: [place] [phone] MAGNESIUM (mg/dL) 2.2 mg/dL 1.6-2.6 Aug 31, 2024 05:45 AM [facility] COMPREHENSIVE METABOLIC PANEL PLASMA Specimen Type: PLASMA No comment entered. Ordering Provider: LEEROY HUGHES Report Released Date/Time: Aug 30, 2024 11:25 AM Reporting Lab: [place] [phone] Performing Lab: [place] [phone] *CREATININE 1.04 mg/dL 0.70-1.30 UREA NITROGEN mg/dL [...] 2020) 72 Aug 31, 2024 05:45 AM [facility] CBC & DIFF BLOOD Specimen Type: BLOOD No comment entered. Ordering Provider: LEEROY HUGHES Report Released Date/Time: Aug 30, 2024 11:25 AM Reporting Lab: [address] [address] Performing Lab: [address] [address] WBC 9.50 10*3/uL 3.6-11.2 RBC 4.12 10*6/uL [...] % 0.7 Aug 30, 2024 04:23 AM [facility] CMP-NONFASTING ([place]) PLASMA Specimen Type: PLASMA No comment entered. Ordering Provider: LARRY BARRIOS Report Released Date/Time: Aug 29, 2024 12:07 PM Reporting Lab: [address] [address] Performing Lab: [address] [address] *CREATININE 1.10 mg/dL 0.70-1.30 UREA NITROGEN mg/dL [...] 2020) 67 Aug 30, 2024 04:23 AM [facility] CBC & DIFF BLOOD Specimen Type: BLOOD No comment entered. Ordering Provider: LARRY BARRIOS Report Released Date/Time: Aug 29, 2024 12:07 PM Reporting Lab: [facility] [address] [facility] [address] Performing Lab: [address] [address] WBC 8.80 10*3/uL 3.6-11.2 RBC 3.99 10*6/uL [...] % 0.9 Aug 29, 2024 04:23 AM [facility] CMP-NONFASTING (CO) PLASMA Specimen Type: PLASMA No comment entered. Ordering Provider: LARRY BARRIOS Report Released Date/Time: Aug 28, 2024 10:54 AM Reporting Lab: [address] [address] Performing Lab: [address] [address] *CREATININE 1.04 mg/dL 0.70-1.30 UREA NITROGEN mg/dL [...] 2020) 72 Aug 29, 2024 04:23 AM [facility] CBC & DIFF BLOOD Specimen Type: BLOOD No comment entered. Ordering Provider: LARRY BARRIOS Report Released Date/Time: Aug 28, 2024 10:54 AM Reporting Lab: [address] [address] Performing Lab: [address] [address] WBC 8.50 10*3/uL 3.6-11.2 RBC 4.28 10*6/uL [...] % 0.6 Aug 28, 2024 04:50 AM [facility] T4 FREE SERUM Specimen Type: SERUM No comment entered. Ordering Provider: LARRY BARRIOS Report Released Date/Time: Aug 27, 2024 03:47 PM Reporting Lab: [address] [address] Performing Lab: [place] [phone] T4 FREE 0.8 ng/dL 0.7-1.48 Aug 28, 2024 04:50 AM [facility] TSH SERUM Specimen Type: SERUM No comment entered. Ordering Provider: LARRY BARRIOS Report Released Date/Time: Aug 27, 2024 03:47 PM Reporting Lab: [address] [address] Performing Lab: [place] [phone] *TSH 1.66 u[IU]/mL 0.47-5.00 Aug 28, 2024 04:50 AM [facility] CMP-NONFASTING ([place]) PLASMA Specimen Type: PLASMA No comment entered. Ordering Provider: LUIS YANES Report Released Date/Time: Aug 28, 2024 03:03 AM Reporting Lab: [place] [phone] Performing Lab: [place] [phone] *CREATININE 0.87 mg/dL 0.70-1.30 UREA NITROGEN mg/dL [...] 2020) 86 Aug 28, 2024 04:50 AM [facility] CBC & DIFF BLOOD Specimen Type: BLOOD No comment entered. Ordering Provider: LUIS YANES Report Released Date/Time: Aug 28, 2024 03:03 AM Reporting Lab: [address] [address] Performing Lab: [address] [address] WBC 9.20 10*3/uL 3.6-11.2 RBC 4.23 10*6/uL [...] % 0.5 Aug 27, 2024 02:14 PM [facility] ACT.CLOTTING TIME BLOOD Specimen Ty pe: BLOOD No comment entered. Ordering Provider: JEROME DOTY Report Released Date/Time: Aug 27, 2024 02:44 PM Reporting Lab: [place] [phone] Performing Lab: [place] [phone] ACT.CLOTTING TIME 153 s H 74-137 Aug 27, 2024 11:30 AM [facility] hsTROP-CO PLASMA Specimen Type: PLASMA Comment: TROP-T-HS Called to: Velvet Bartlett RN at: 1213 on: 08/27/24 by: Jasvir Cunningham Result read back to comply with Joint Commission Ordering Provider: LARRY BARRIOS Report Released Date/Time: Aug 27, 2024 09:20 AM Reporting Lab: [place] [phone] Performing Lab: [place] [phone] hsTROP-CO 1017 HH See Interpretation Aug 27, 2024 08:55 AM [facility] MRSA SURVL NARES DNA NARES Specimen Type: NARES No comment entered. Ordering Provider: JEROME DOTY Report Released Date/Time: Aug 27, 2024 08:46 AM Reporting Lab: [place] [phone] Performing Lab: [place] [phone] MRSA SURVL NARES DNA Negative Negative Aug 27, 2024 08:20 AM [facility] URINALYSIS (ZOILA,W[place],CO,EK) URINE Spec imen Type: URINE Comment: Microscopic not indicated Ordering Provider: RYAN HALL Report Released Date/Time: Aug 27, 2024 06:51 AM Reporting Lab: [place] [phone] Performing Lab: [place] [phone] *URINE COLOR Light-Yellow *URINE APPEARANCE Clear Clear *URINE PROTEIN Negative mg/dL Negative-T race *URINE LEUKOCYTE Negative Negative *URINE NITRITE Negative Negative *URINE BLOOD Negative Negative *URINE GLUCOSE Negative mg/dL Negative *URINE KETONES Negative mg/dL Negative *URINE PH 7.0 5.0-8.0 *URINE SPECIFIC GRAVITY 1.011 1.005-1. 030 *URINE BILIRUBIN Negative Negative *URINE UROBILINOGEN Normal mg/dL Normal Aug 27, 2024 06:40 AM [facility] PT/INR PLASMA Specimen Type: PLASMA No comment entered. Ordering Provider: RYAN HALL Report Released Date/Time: Aug 27, 2024 06:51 AM Reporting Lab: [place] [phone] Performing Lab: [place] [phone] *INR 1.0 {INR} *PT 11.4 s 9.4-12.5 Aug 27, 2024 06:40 AM [facility] APTT PLASMA Specimen Type: PLASMA No comment entered. Ordering Provider: RYAN HALL Report Released Date/Time: Aug 27, 2024 06:51 AM Reporting Lab: [place] [phone] Performing Lab: [place] [phone] APTT 29.8 s 26.7-39.9 Aug 27, 2024 06:40 AM [facility] COMPREHENSIVE METABOLIC PANEL PLASMA Specimen Type: PLASMA No comment entered. Ordering Provider: RYAN HALL Report Released Date/Time: Aug 27, 2024 06:51 AM Reporting Lab: [place] [phone] Performing Lab: [place] [phone] *CREATININE 1.14 mg/dL 0.70-1.30 UREA NITROGEN mg/dL [...] 2020) 64 Aug 27, 2024 06:40 AM [facility] hsTROP-CO PLASMA Specimen Type: PLASMA No comment entered. Ordering Provider: RYAN HALL Report Released Date/Time: Aug 27, 2024 06:51 AM Reporting Lab: [address] Performing Lab: [place] [phone] hsTROP-CO 15 See Interpretation Aug 27, 2024 06:40 AM [facility] CBC & DIFF BLOOD Specimen Type: BLOOD No comment entered. Ordering Provider: RYAN HALL Report Released Date/Time: Aug 27, 2024 06:51 AM Reporting Lab: [place] [phone] Performing Lab: [place] [phone] WBC 15.70 10*3/uL H 3.6-11.2 RBC 4.80 [...] 0.00 -0.20 Aug 27, 2024 06:40 AM [facility] NTproBNP ([place]) PLASMA Specimen Typ e: PLASMA No comment entered. Ordering Provider: RYAN HALL Report Released Date/Time: Aug 27, 2024 06:51 AM Reporting Lab: [address] Performing Lab: [place] [phone] NTproBNP ([place]) 410 pg/mL -See Interpre tation Aug 27, 2024 06:40 AM [facility] PATHOLOGIST REVIEW BLOOD Specimen T ype: BLOOD Comment: Reviewed by Dr. Chepe Yu: Reactive Lymphocytes. Ordering Provider: RYAN HALL Report Released Date/Time: Aug 27, 2024 06:51 AM Reporting Lab: [address] [address] Performing Lab: [address] [address] PATHOLOGIST REVIEW comment Aug 27, 2024 06:40 AM [facility] ANTI-Xa ([place]) BLOOD Specimen Type: BLOOD Comment: Critical Values: Unfractionated Heparin: > 1.0 IU/mL For Low Molecular Weight Heparin reference ranges contact lab. Ordering Provider: RYAN HALL Report Released Date/Time: Aug 27, 2024 07:24 AM Reporting Lab: [address] [address] Performing Lab: [address] [address] ANTI-Xa ([place]) <0.04 [IU]/mL 0.3-0.7 Vital Signs: All taken on the encounter date This section contains inpatient and outpatient Vital Signs collected on the date of the Encounter. Date/Time Temperature Pulse Blood Pressure Respiratory Rate SP02 Pain Height Weight Body Mass Index Source Aug 27, 2024 08:00 PM 97.7 51 138/67 16 95 0 [facility] Aug 27, 2024 08:30 AM 65 138/79 21 98 0 [facility] Aug 27, 2024 08:30 AM 96.8 68 135/74 21 97 0 195.99 31 [facility] Aug 27, 2024 08:19 AM 98.6 0 [facility] Aug 27, 2024 08:15 AM 74 135/71 18 99 [facility] Social History: Smoking Status (Most current) and Tobacco Use (All prior to encounter date) This section includes the most current, and the historical, smoking and tobacco- related health factors from the ID facility where the Encounter took place. Current Smoking Status This section includes the most current smoking, or tobacco-related health factor, from the ID facility where the Encounter took place. Date/Time Current Smoking Status Comment Facil ity Apr 30, 2023 01:00 PM VA-TOBACCO FORMER USER [facility] Tobacco Use History This section includes a history of the smoking, or tobacco-related health factors, that were collected on or before the date of the Encounter. The data comes from the ID facility where the Encounter took place. Date/Time Smoking Status/Tobacco Use Comment F acility Apr 30, 2023 01:00 PM VA-TOBACCO QUIT 15 YRS OR MORE [facility] Apr 04, 2022 09:15 AM VA-TOBACCO FORMER USER [facility] Apr 04, 2022 09:15 AM VA-TOBACCO QUIT 15 YRS OR MORE [facility] Jul 18, 2021 10:13 AM INPT TOBACCO SCREENED NEGATIVE [facility] Apr 27, 2021 07:00 AM INPT TOBACCO SCREENED NEGATIVE [facility] October 31, 2020 02:30 PM INPT TOBACCO SCREENED NEGATIVE [facility] October 08, 2020 10:22 AM INPT TOBACCO SCREENED NEGATIVE [facility] October 07, 2020 07:22 AM VA-TOBACCO FORMER USER [facility] Sep 30, 2020 11:06 AM INPT TOBACCO SCREENED NEGATIVE [facility] Sep 29, 2020 04:05 PM VA-TOBACCO NEVER USED [facility] Jan 17, 2020 10:21 AM VA-TOBACCO FORMER USER [facility] Jan 17, 2020 10:21 AM VA-TOBACCO QUIT 15 YRS OR MORE [facility] Advance Directives: All historical and current Section Date Range: From patient's date of to the date document was created. This section includes ALL of a patient's completed or amended ID Advance and Rescinded Directives. The entries below indicate that a directive exists for the patient, but an actual copy is not included with this document. The data comes from all [facility]. Date Advance Directives Provider Source October 22, 2022 ADVANCE DIRECTIVE DISCUSSION ARGELIA CHAVEZ [facility] Apr 04, 2022 ADVANCE DIRECTIVE DISCUSSION RAY ROQUE [facility] Sep 30, 2020 ADVANCE DIRECTIVE DISCUSSION ILYA BROWN [facility] Jul 26, 2020 ADVANCE DIRECTIVE DISCUSSION FABY TAMEZ [facility] Apr 17, 2020 ADVANCE DIRECTIVE DISCUSSION ASHLEY,DA NA [facility] Jan 17, 2020 ADVANCE DIRECTIVE DISCUSSION LINETTE RAMIREZ MIKE [facility] Feb 24, 2009 ADVANCE DIRECTIVE HECTOR [facility] Radiology Reports: +/- 30 days of [...] the Encounter. The data comes from all ID treatment facilities. Date/Time Radiology Report Provider Source Sep 01, 2024 06:18 AM CHEST 2 VIEWS: ALIYAH MANDEL [id number] -1940 M Exm Date: SEP 01, 2024@06:18 Req Phys: TERRELL GUO Pat Loc: ICU PCU MED-[facility]/09-01-2024@07:2 Img Loc: [facility] Service: [facility] [place] [address] (Case [id number] COMPLETE) CHEST 2 VIEWS (RAD Detailed) CPT:39172 Reason for Study: Assess pulmonary status S/P Pacemaker/AICD implant Clinical History: Morning after procedure DO NOT raise left arm above shoulder level. Report Status: Verified Date Reported: SEP 01, 2024 Date Verified: SEP 01, 2024 Outer Diameter Grinder E-Sig:/ES/Aubrie Garcia MD PhD Report: History: Pacemaker [...] Aubrie Garcia MD PhD, CHIEF, CLINICAL SUPPORT (Outer Diameter Grinder) /MDT AUBRIE GARCIA [facility] Aug 31, 2024 04:27 PM CHEST 1 VIEW: ALIYAH MANDEL [id number] -1940 M Exm Date: AUG 31, 2024@16:27 Req Phys: TERRELL GUO Pat [place] [facility]@07:2 Img Loc: [facility] Service: [facility] [place] [address] (Case [id number] COMPLETE) CHEST 1 VIEW (RAD Detailed) CPT:29149 Proc Modifiers : PORTABLE Reason for Study: s/p pacemaker Clinical History: Report Status: Verified Date Reported: SEP 01, 2024 Date Verified: SEP 01, 2024 Outer Diameter Grinder E-Sig:/ES/Aubrie Garcia MD PhD Report: History: Pacemaker [...] Aubrie Garcia MD PhD, CHIEF, CLINICAL SUPPORT (Outer Diameter Grinder) /MDT AUBRIE GARCIA [facility] Aug 31, 2024 05:05 AM CHEST 1 VIEW: ALIYAH MANDEL [id number] -1940 M Exm Date: AUG 31, 2024@05:05 Req Phys: HUGHES,LEEROY GILLIS Pat Loc: [place] [facility] [place]08-31-2024@07:3 Img Loc: [facility] Service: [place] [address] (Case [id number] COMPLETE) CHEST 1 VIEW (RAD Detailed) CPT:78018 Reason for Study: Assess pulmonary function s/p pacemaker AICD placement Clinical History: Report Status: Verified Date Reported: AUG 31, 2024 Date Verified: AUG 31, 2024 Outer Diameter Grinder E-Sig:/ES/Aubrie Garcia MD PhD Report: History: AICD placement. [...] Aubrie Garcia MD PhD, CHIEF, CLINICAL SUPPORT (Outer Diameter Grinder) /AUBRIE VELEZ [facility] Aug 27, 2024 06:51 AM CHEST 1 VIEW: ALIYAH MANDEL [id number] -1940 M Exm Date: AUG 27, 2024@06:51 Req Phys: RYAN HALL Loc: [facility] (Req'g Loc) Img Loc: [facility] Service: [place] [address] (Case [id number] COMPLETE) CHEST 1 VIEW (RAD Detailed) CPT:01184 Proc Modifiers : PORTABLE Reason for Study: vtach Clinical History: If ordering Portable X-Ray call Tech at [id number] for prompt response Report Status: Verified Date Reported: AUG 27, 2024 Date Verified: AUG 27, 2024 Outer Diameter Grinder E-Sig:/ES/Aubrie Garcia MD PhD Report: History: Ventricular tachycardia. Single view of the chest. Comparison: 05/20/2023. Findings: Lungs are clear. Mild cardiomegaly without pulmonary edema. Soft tissues are unremarkable. Atherosclerosis. Osseous structures demonstrate degenerative changes. Impression: Mild cardiomegaly without pulmonary edema. READING PHYSICIAN: Aubrie Garcia 08/27/2024 7:29 AM Primary Diagnostic Code: NO ALERT REQUIRED Primary Interpreting Staff: Aubrie Garcia MD PhD, CHIEF, CLINICAL SUPPORT (Outer Diameter Grinder) /AUBRIE VELEZ ROBI [facility] Encounter Notes: All associated encounter notes This section contains the clinical notes associated to the Encounter. Date/Time Encounter Note(s) Provider Source Aug 27, 2024 08:54 PM CARDIOLOGY PROCEDU RE REPORT: LOCAL TITLE: CARDIOLOGY-CART CATH/PROCEDURE REPORT ([place]) STANDARD TITLE: CARDIOLOGY PROCEDURE REPORT DATE OF NOTE: AUG 27, 2024@20:54 ENTRY DATE: SEP 22, 2024@11:54:13 AUTHOR: KEVIN VAZQUEZ COSIGNER: URGENCY: STATUS: COMPLETED ID CART Program for Clinical Assessment, Reporting, and Tracking CARDIOVASCULAR DIAGNOSTIC AND THERAPEUTIC PROCEDURE REPORT Patient: ALIYAH MANDEL SSN: [id number] : 1940 AGE: 84 Procedure Date: 08/27/2024 Associated Assessment: CV (08/27/2024) Procedure Status: Urgent inpatient procedure Attending: KEVIN VAZQUEZ Assisting: DAMARI MASON PROCEDURE INDICATIONS Primary Indication: Systolic Heart Failure Other Indications: Other Indications ventricular tachycardia. prelim EF read is 25-30%, severely reduced LVEF, decreased from prior. Written informed consent obtained prior to the start of the procedure. PROCEDURES PERFORMED Diagnostic Procedures: Coronary Angiography Other Procedures: Ultrasound guidance for vascular access Moderate sedation TIME-OUT A time-out was performed addressing all safety requirements relevant to the procedure. Type of procedure, site, and patient ID were verified with the patient. The attending has assessed or re-assessed the patient and there are no changes to the pre-procedure assessment. NPO since: midnight ACCESS Primary Arterial: Ultrasound guided Right Radial access (6F), Hemostasis with radial band CATHETERS Right coronary artery: [place], 6 fr Left coronary artery: [employer] [place], 6 fr ALL PROCEDURES Heart rate (Bpm): 74 Aorta (mmHg): 136/ 63, mean 90 CORONARY ANGIOGRAPHY [place] Vessels Summary: Other - see comments Dominance: Right dominant Stenoses Details Segment Stenosis Length Characteristics and Comments Left Main 20% Luminal irregularities LAD (overall) 30% Diffusely Diseased large caliber vessel with patent stent in mid LD after diag 1 and has mild diffuse disease throughout Mid LAD 30% Diffusely Diseased Patent stent and 30% stenosis, diffuse, beyond the stent 1st Diagonal 80% Luminal irregularities, Ostial It is medium in caliber. patent stent in proximal segment with no significant ISR. ZACHARY III flow CIRCUMFLEX (overall) 20% Luminal irregularities 1st Obtuse Marginal Luminal irregularities medium in caliber and bifurcating vessel RCA (overall) 20% In-Stent Restenosis Right PDA 20% Luminal irregularities Right PAV Segment CULINARY ART TEACHER, In-Stent Restenosis Right PL Segment 1 100% CULINARY ART TEACHER, In-Stent Restenosis note: Stenosis = highest % stenosis within segment PROCEDURE DETAILS AND FINDINGS Technical Details: as above Procedure Findings: as above IN-LAB MEDICATIONS I have ordered, supervised conscious sedation for the entire procedure. Please see nursing and cardiac Lathe Set Up Person log for details. Summary Data: Total Contrast: 30 mL, Visipaque-320 (iodixanol) Total Fluoroscopy Time: 4.4 min Radiation DAP: 49988 mGy-cm2 Air Kerma: 195 mGy Total Fluids: 100 mL Estimated Blood Loss: 10 mL Specimen removed: No PERIPROCEDURAL COMPLICATIONS No Major Adverse Events or Complications PREDICTIVE ANALYTICS Risk of adverse events: Low (predicted from [place] syntax score = 7) The attending was present throughout the procedure. PROCEDURE SUMMARY Coronary angiogram performed via right radial artery access. 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 CULINARY ART TEACHER of the PAV segment and R DIPAK. Predominant left to right and faint right to right collaterals noted to the R DIPAK territory. RECOMMENDATIONS - Medical management of the diagonal 1 and right PAV segment and right DIPAK which are not acute lesions and less likely to be culprit for VT. -EP team follow-up -TR band per protocol -Rest of the management per cardiology consult team recommendations. PROCEDURE CODING Coding Procedure Per_Coder Coronary Angiography 35344 Ultrasound guidance for vascular access N/A Moderate sedation 589A4 [id number] 08/27/2024 /santiago/ KEVIN VAZQUEZ PHYSICIAN Signed: 09/22/2024 11:54 KEVIN VAZQUEZ [facility] Aug 27, 2024 02:52 PM CARDIOLOGY PROCEDU RE NOTE: LOCAL TITLE: CP CO-CARDIAC CATH STANDARD TITLE: CARDIOLOGY PROCEDURE NOTE DATE OF NOTE: AUG 27, 2024@14:52:17 ENTRY DATE: AUG 27, 2024@14:52:17 AUTHOR: CLINICAL,DEVICE PRO EXP COSIGNER: URGENCY: STATUS: COMPLETED PROCEDURE SUMMARY CODE: Machine Resulted DATE/TIME PERFORMED: AUG 27, 2024@14:20:5 DOCUMENT IN VISTA IMAGING SEE FULL REPORT IN VISTA IMAGING SIGNATURE NOT REQUIRED SEE SIGNATURE IN VISTA IMAGING (CO-CCW (CATH)) AUTO-INSTRUMENT DIAGNOSIS Procedure: CO_CATH CATH Yogesh Pichardo [address] [address] Patient Information Patient Name ALIYAH MANDEL Study Date 08/27/2024 Study Number [id number] Date of 1940 Age 84 Years Gender Male Race Height 170 cm (5'07 ) Weight 91 kg (201 lbs) BSA 2.02 m2 Staff Duty Name IN OUT Employment Manager Kevin Vazquez MD 2:13 PM Monitor Jazzy Pierson [facility], TRAILER SECTIONS ASSEMBLER 2:13 PM Nurse Kevin Ellis, RN 2:13 PM Decommissioning Well Site Manager Damari Mason MD 2:13 PM Nurse Cesar Oseguera, GIULIA 2:17 PM Procedures Time Procedure Code 1 Code 2 Code 3 Code 4 Comment 2:26 PM Right radial artery access 2:26 PM Coronary Angio/No LV (23981) 2:38 PM Closure Device Cost (C1760) Pressure Summary (mmHg) Baseline Time Site Sys Welch End Mean A Wave V Wave Max dp/dt HR (BPM) 2:24 PM AO 136 63 90 68 Pressures Used in Calculation (mmHg) Patient Name: ALIYAH MANDEL Study Date: 08/27/2024 Admission ID: [id number] Page 1 of [address] [address] Baseline Time Site Sys Welch End Mean A Wave V Wave Max dp/dt HR (BPM) 2:24 PM AO 136 63 90 68 Time-Out Form Timeout Participants: Cesar Oseguera, GIULIA; Kevin Ellis, GIULIA; [facility]; Dr Mason; Dr Vazquez Was patient a participant in the time-out? Yes Were two identifiers used to identify patient? Yes Verified correct procedure? Yes Consent Signed and reflects physician(s) Yes performing procedure? Anticipated equipment/supplies available? Yes Patient Position? Supine DVT Prophylaxis? Yes Blood Products Available? Yes Antibiotics? N/A Medical Implants? N/A Conscious Sedation ID Band applied? Yes Imaging Verification? Yes Fire risk assessment complete? Yes Airway Assessment and Pre-Procedure H&P Yes Completed? Allergies Allergies: NKDA IV Information IV Location #1 RAC IV Gauge: 20 IV Location #2 Left hand IV Gauge: 20 Medication Summary-M Patient Name: ALIYAH MANDEL Study Date: 08/27/2024 Admission ID: [id number] Page 2 of [address] [address] Medication Route Administered Total Billing Code Type Unit Administered Fentanyl IV mcg 25 mcg Opioid Heparin IV units 4,500 units Anticoagulant Midazolam IV mg 1 mg Sedative (Versed) Nitroglycerin IA mcg 200 mcg Direct Vasodilator Normal Saline IV ml per hr Fluid (Sodium Chloride 0.9%) Verapamil IA mg 2 mg Calcium Elian Medication Events-M Start Stop Medication Amount Ordered by Given by Comment 2:19 PM Normal Saline (Sodium 25 ml per Kevin Cesar Chloride 0.9%) IV hr Deann Oseguera RN 2:19 PM Midazolam (Versed) IV 1 mg Kevin Cesar Deann Oseguera RN 2:19 PM Fentanyl IV 25 mcg Kevin Cesar Deann Oseguera RN 2:22 PM Verapamil IA 2 mg Damari Mason MD 2:22 PM Nitroglycerin IA 200 mcg Damari Mason MD 2:27 PM Heparin IV 4,500 Kevin Cesar units Deann Oseguera RN Vital Signs Time SpO HR BP Insp Exp RR Tem LOC LOP Comment 2 (BP (m m Hg) CO2 CO2 (per p (%) M) (m m H (m m H m in) ( XC) g) g) 2:15 96 81 165/76/109 62 PM 2:19 98 87 154/73/108 25 PM 2:24 67 137/68/96 24 PM 2:29 96 68 141/73/101 26 Patient Name: ALIYAH MANDEL Study Date: 08/27/2024 Admission ID: [id number] Page 3 of 11 Yogesh Madonna [address] [address] PM 2:34 96 74 139/77/102 41 PM Event Log-M Time Summary Comment Author 1:30:19 Phase: Baseline PM 1:30:46 Patient Arrives Kevin Ellis PM [facility] 1:30:47 Armband Checked & Conscious Kevin Ellis PM Sedation Band Applied [facility] 1:30:52 Patient Allergies: Kevin Ellis PM [facility] 1:30:54 NPO Status: last evening Kevin Ellis PM [facility] 1:31:06 Chest Pain: denies Kevin Ellis PM [facility] 1:31:07 Shortness of Breath: cristin Kevin Ellis PM [facility] 1:31:33 IV information Kevin Ellis PM [facility] 1:31:36 Consent Signed By: Kevin Nixon PM [facility] 1:31:38 Pre-Procedure H&P and Kevin Ellis PM Conscious Sedation Form OVA Completed by: Dr. Mason 1:31:53 Lab Results Reviewed Kevin Ellis PM [facility] 1:32:04 Pre-Procedure Pulses Checked & Kevin Ellis PM Documented [facility] 1:32:06 Procedure Site Prepped Kevin Ellis PM [facility] 1:32:07 Pre-procedure Teaching Kevin Ellis PM Performed [facility] 1:32:07 Patient Verbalized Understanding Kevin Ellis PM Of Procedure [facility] 1:32:08 Second Class Welder Name and Phone Number: Kevin Ellis [facility] [phone] [facility] 1:32:55 Medications Taken Today: See Kevin Ellis PM bcma [facility] 1:33:08 Amiodarone gtt 33.3 ml/hr on Kevin Ellis PM arrival to Lathe Set Up Person [facility] 2:13:25 Pre Case Jazzy Pierson Patient Name: ALIYAH MANDEL Study Date: 08/27/2024 Admission ID: [id number] Page 4 of [address] [address] PM Documentation 2:13:59 Pre Procedure Count Performed Jazzy Pierson PM 2:14:00 Case Event Type:Diagnostic Jazzy Pierson PM Cath,Physician:Carlos Vazquez 2:14:06 Patient Arrived via Stretcher Jazzy Pierson PM 2:14:14 Patient Prepped Using Sterile Jazzy Piersno Technique 2:15:04 SpO2 96%; HR 81 bpm; 165/76/109 NBP; PM RR 62/min 2:16:52 Physician Arrived Jazzy Pierson PM 2:16:58 Fellow Arrived/Scrubbed Jazzy Pierson PM 2:19:17 Time Out Performed Cesar Oseguera [facility] 2:19:19 Verbal orders were read back to Cesar Oseguera the physician for Confirmation [facility] 2:19:19 For shift change/break relief: Cesar Oseguera OVA 2:19:19 All medications, Solutions, and Cesar Oseguera labels on and off the sterile [facility] 2:19:19 Field were reviewed by entering Cesar Oseguera and existing personnel [facility] 2:19:20 Oxygen @ 2L NC Cesar Oseguera PM OVA 2:19:30 Patient Draped Using Sterile Jazzy Pierson Technique 2:19:32 Normal Saline (Sodium Chloride 0.9%) IV Cesar Oseguera PM 25 ml per hr [facility] 2:19:32 NS Infusion Cesar Oseguera [facility] 2:19:37 SpO2 98%; HR 87 bpm; 154/73/108 NBP; PM RR 25/min 2:19:38 Midazolam (Versed) IV 1 mg Cesar Oseguera PM OVA 2:19:46 Fentanyl IV 25 mcg Cesar Oseguera PM [facility]VA 2:20:48 Physician Scrubbed Jazzy Pierson PM 2:20:51 Case Start Jazzy Pierson PM 2:20:52 1% Lidocaine Administered To: Jazzy Pierson Patient Name: ALIYAH MANDEL Study Date: 08/27/2024 Admission ID: [id number] Page 5 of [address] [address] PM Right Wrist 2:21:01 Percutaneous Puncture To: RRA Jazzy Pierson PM 2:21:33 Wire inserted Jazzy Pierson PM 2:21:39 6Fr Glidesheath Slender Sheath (Terumo) Jazzy Pierson PM 2:21:44 Sheath Inserted Into: RRA Jazzy Pierson PM 2:21:53 Wire Removed Jazzy Pierson PM 2:22:04 Verapamil IA 2 mg Jazzy Pierson PM 2:22:19 Nitroglycerin IA 200 mcg Jazzy Pierson PM 2:22:22 ~~~~~~~~~~~Coronaries~~~~~ Jazzy Pierson PM ~~~~~ 2:22:32 InQwire .035 150cm J Wire (Merit) Jazzy Pierson PM 2:22:33 Wire Inserted Jazzy Pierson PM 2:22:41 6Fr TIG 4.0 Radial (Terumo) Jazzy Pierson PM 2:23:13 Catheter Inserted By Guidewire Jazzy Pierson PM 2:23:35 Wire removed Jazzy Pierson PM 2:24:16 Baseline EKG Jazzy Pierson PM 2:24:40 HR 67 bpm; 137/68/96 NBP; RR 24/min PM 2:24:42 AO : 136/63/90, HR = 68, II PM 2:24:42 Snapshot: AO : 136/63/90 PM 2:26:29 Procedure: Right radial artery access Jazzy Pierson PM 2:26:35 Procedure: Coronary Angio/No LV (89193) Jazzy Pierson PM 2:26:43 Left Coronary System Injected & Jazzy Pierson PM Multiple Views Taken 2:27:02 Heparin IV 4,500 units Cesar Oseguera [facility] 2:27:14 Right Coronary System Injected Jazzy Pierson Patient Name: ALIYAH MANDEL Study Date: 08/27/2024 Admission ID: [id number] Page 6 of [address] [address] PM & Multiple Views Taken 2:29:33 SpO2 96%; HR 68 bpm; 141/73/101 NBP; PM RR 26/min 2:34:13 Wire Inserted Jazzy Pierson PM 2:34:18 Catheter Removed Jazzy Pierson PM 2:34:20 Wire removed Jazzy Pierson PM 2:34:34 SpO2 96%; HR 74 bpm; 139/77/102 NBP; PM RR 41/min 2:36:10 Medications wasted per RN Cesar Oseguera PM [facility] 2:36:11 Report Called to Primary Nurse Cesar Oseguera PM [facility] 2:36:11 ~~~~~~~~~~~Closure~~~~~~~ Jazzy Pierson PM ~~~~~~~~~~~~~ 2:36:12 Total Fluids: 250ml Cesar Oseguera PM [facility] 2:36:17 TR Band Lrg (Terumo) Jazzy Pierson PM 2:36:19 Closure device used, sheath Jazzy Pierson PM removed from: 2:36:20 mL of air: 14 Jazzy Pierson PM 2:36:42 Hemostasis Obtained Jazzy Pierson PM 2:36:49 VAPAS Conscious Sedation Cesar Oseguera Assessment Performed [facility] 2:37:10 Post Procedure Count Performed Jazzy Pierson PM 2:37:11 Patient transferrred from x-ray Jazzy Pierson table via hovermat 2:37:13 Case End Jazzy Pierson PM 2:38:41 Procedure: Closure Device Cost (C1760) Jazzy Pierson PM 2:39:04 Complication: No complications Jazzy Pierson PM 2:39:18 Contrast: Visipaque 30 mL Jazzy Pierson Supplies Summary Time Size Plastic Finisher Item Serial Lot Part Billing Comment Patient Name: ALIYAH MANDEL Study Date: 08/27/2024 Admission ID: [id number] Page 7 Yogesh PinedoMadonna [address] [address] Name Number Number Number Code (Model) 2:21 PM Terumo 6Fr 80-1060 Glideshea th Slender Sheath (Terumo) 2:22 PM [employer] InQwire [id number] .[id number] 0J3 150cm J Wire ([employer]) 2:22 PM Terumo 6Fr TIG [id number] 4.0 Radial (Terumo) 2:36 PM Terumo TR Band TRB29-L Lrg RG (Terumo) Radiology Total Fluoro Time mins 4.40 Total Air [place] ([place]) mGy 195 Total DAP Gycm2 [address] Contrast-M Time Contrast Amount (m l) Comment 2:39 PM Visipaque 30 VAPAS Pain 2 Points- Minimal or None- Pain Score 0-4 or at baseline. Nausea/Vomiting 2 Points- Minimal or None Circulatory Status 2 Points - Minimal or none Activity and Mental Status 2 Points- Oriented x 3 and has steady gait (baseline for non-ambulatory) Surical Site/Dressing 2 Points- Dry and Clean or N/A Complications Patient Name: ALIYAH MANDEL Study Date: 08/27/2024 Admission ID: [id number] Page 8 of [address] [address] Time Complication Comment 2:39 PM No complications Patient Name: ALIYAH MANDEL Study Date: 08/27/2024 Admission ID: [id number] Page 9 of [address] [address] Snapshots Baseline EKG Patient Name: ALIYAH MANDEL Study Date: 08/27/2024 Admission ID: [id number] Page 10 of [address] [address] Snapshot: AO : 136/63/90 Electronic Signature: Electronically Signed by: Kevin Vazquez MD Date: 08/27/2024 2:45:06 PM Login credentials: Kevin Vazquez [email or web address] Comments: Patient Name: ALIYAH MANDEL Study Date: 08/27/2024 Admission ID: [id number] Page 11 of 11 Administrative Closure: 08/27/2024 by: DEVICE PROXY SERVICE CLINICAL Clinical Procedures Proxy Service CLINICAL,DEVICE PROXY SERVICE [facility] Aug 27, 2024 02:00 PM CARDIOLOGY RISK SESSMENT SCREENING NOTE: LOCAL TITLE: CARDIOLOGY-CART PRE-CATH/H&P ASSESSMENT (CO) STANDARD TITLE: CARDIOLOGY RISK ASSESSMENT SCREENING NOTE DATE OF NOTE: AUG 27, 2024@14:00 ENTRY DATE: AUG 27, 2024@14:01:15 AUTHOR: DAMARI MASON EXP COSIGNER: BERMUDEZ,KAYLA DAYSI-TAT URGENCY: STATUS: COMPLETED CARDIOLOGY-CART PRE-CATH/H&P ASSESSMENT (CO) Has ADDENDA ID CART Program for Clinical Assessment, Reporting, and Tracking CARDIOVASCULAR PRE-PROCEDURE ASSESSMENT REPORT Patient: ALIYAH MANDEL SSN: [id number] : 1940 AGE: 84 Assessment for urgent CARDIOVASCULAR procedure Assessed by: DAMARI MASON Date: 08/27/2024 Attending: KAYLA BERMUDEZ PRESENTATION Primary Indication Other 84 years old presented with VT Concomitant Conditions: Cardiac Arrest: No Cardiogenic Shock: No COVID-19 Test: Not Performed Test: Not Obtained Surgical Turndown: No CARDIAC RISK FACTORS Hypertension Dyslipidemia No Diabetes No history of tobacco use COMORBID CONDITIONS No Lung Disease No Sleep Apnea No Renal Disease No Peripheral Vascular Disease No Cerebrovascular Disease No LiverDisease No history of alcohol abuse No history of illicit drug use REVIEW OF SYSTEMS PHYSICAL EXAM Vital Value Unit Date/Time BP 138/ 79 mmHG 2024-08-27 08:30 HR 65 bpm 2024-08-27 08:30 Height 67 inches 2023-09-26 07:47 Weight 195.99 lbs 2024-08-27 08:03 BSA 1.9 m^2 2024-08-27 08:03 Neck: No carotid bruits Lungs: No rales present Cardiac: No extra heart sound present No murmur Extremities: No femoral bruits Leg Pulses: Normal left femoral pulse Normal right femoral pulse Normal left dorsalis pedis pulse Normal right dorsalis pedis pulse Normal left posterior tibial pulse Normal right posterior tibial pulse Arm Pulses: Normal left radial pulse Normal right radialpulse Normal left brachial pulse Normal right brachial pulse LABS Lab Value Date/Time Alert Creatinine 1.14 2024-08-27 06:04 eGFR 64 2024-08-27 06:04 Albumin 4.6 2024-08-27 06:04 Bilirubin 0.7 2024-08-27 06:04 Potassium 4.1 2024-08-27 06:04 Sodium 140 2024-08-27 06:04 Hematocrit 44.9 2024-08-27 06:40 Hemoglobin 15.9 2024-08-27 06:40 Platelets 236 2024-08-27 06:40 INR 1.0 2024-08-27 06:40 PTT 29.8 2024-08-27 06:40 WBC 15.70 2024-08-27 06:40 high INPATIENT MEDICATIONS in 0.9% NACL 500 ML expires: 08/27/2024 IV TKO @25 Instructions too long. See order details for full text. Indication: FOR IV ACCESS in AMIODARONE 360MG/ D5W 200 ML expires: 08/28/2024 IV 1 mg/min x 6 hrs@1 then 0.5mg/min x 18hrs (*1.8 MG/ML*) MIX IN GLASS Indication: FOR ARRHYTHMIA in HEPARIN 25,000 UNITS/0.45%NACL 500 ML expires: 08/28/2024 IV TITRATE@1 Instructions too long. See order details for full text. Indication: ANTI-XA ACS/AMI HEPARIN INJ,SOLN expires: 09/10/2024 Give: 5000UNIT/1ML IVP Q8H PRN HEPARIN INJ,SOLN expires: 09/10/2024 Give: 5000UNIT/1ML IVP Q8H PRN in HEPARIN 25,000 UNITS/0.45%NACL 500 ML expires: 09/26/2024 IV TITRATE@1 Instructions too long. See order details for full text. Indication: ANTI-XA ACS/AMI in AMIODARONE 360MG/ D5W 200 ML expires: 09/26/2024 IV 1 mg/min x 6hrs @1 continue at 0.5mg/min (*1.8 MG/ML*) Indication: FOR ARRHYTHMIA DEXTROSE 50%/WATER INJ,SOLN expires: 12/04/2024 Give: 50ML (25GM) IVP Q15MIN PRN DEXTROSE LIQUID,ORAL expires: 12/04/2024 Give: 15GM PO Q15MIN PRN GLUCAGON EMERGENCY INJ expires: 12/04/2024 Give: 1MG/1VIAL SQ Q15MIN PRN *SODIUM CHLORIDE 0.9% PF SYR INJ expires: 12/04/2024 Give: 10mL IVP Q8H AMLODIPINE TAB expires: 12/04/2024 Give: 10MG PO QAM CHOLECALCIFEROL (LOW DOSE VIT D3) TAB expires: 12/04/2024 Give: 25MCG PO QAM CYANOCOBALAMIN TAB expires: 12/04/2024 Give: 1000MCG PO QAM *ISOSORBIDE MONONITRATE TAB,SA expires: 12/04/2024 Give: 120MG PO QDAY LISINOPRIL TAB expires: 12/04/2024 Give: 10MG PO QAM METOPROLOL SUCCINATE TAB,SA expires: 12/04/2024 Give: 25MG PO QAM *OMEPRAZOLE CAP,EC expires: 12/04/2024 Give: 20MG PO QAM AC *RANOLAZINE TAB,SA expires: 12/04/2024 Give: 1000MG PO BID ROSUVASTATIN TAB expires: 12/04/2024 Give: 40MG PO QHS TAMSULOSIN CAP,ORAL expires: 12/04/2024 Give: 0.4MG PO QDAY *NITROGLYCERIN TAB,SUBLINGUAL expires: 12/04/2024 Give: 0.4MG SL Q5MIN PRN OUTPATIENT MEDICATIONS METOPROLOL SUCCINATE 50MG SA TAB Qty: 45 for 90 days expires: 06/22/2025; last filled: 06/22/2024; active Sig: TAKE ONE-HALF TABLET BY MOUTH EVERY MORNING FOR BLOOD PRESSURE SWALLOW WHOLE, DO NOT CRUSH OR CHEW (TABLETS MAY BE CUT IN HALF). OMEPRAZOLE 20MG EC CAP Qty: 30 for 30 days expires: 06/22/2025; last filled: 08/06/2024; active Sig: TAKE ONE CAPSULE BY MOUTH EVERY MORNING FOR GERD - TAKE WITH A FULL GLASS OF WATER 30 MINUTES BEFORE FOOD OR OTHER DRINKS RANOLAZINE 1000MG SA TAB Qty: 180 for 90 days expires: 02/17/2025; last filled: 08/06/2024; active Sig: TAKE ONE TABLET BY MOUTH TWO TIMES A DAY FOR HEART/PREVENT CHEST PAIN, *SWALLOW WHOLE- DO NOT CRUSH,BREAK OR CHEW* ISOSORBIDE MONONITRATE 120MG SA TAB Qty: 90 for 90 days expires: 02/17/2025; last filled: 06/07/2024; active Sig: TAKE ONE TABLET BY MOUTH ONCE A DAY TO PREVENT CHEST PAIN TAKE ON EMPTY STOMACH. SWALLOW WHOLE. DO NOT CRUSH OR CHEW. AMLODIPINE BESYLATE 10MG TAB Qty: 90 for 90 days expires: 02/17/2025; last filled: 06/07/2024; active Sig: TAKE ONE TABLET BY MOUTH EVERY MORNING FOR HEART/BLOOD PRESSURE *CHOLECALCIF 25MCG (D3-1,000UNIT) TAB Qty: 100 for 90 days expires: 02/17/2025; last filled: 08/20/2024; active Sig: TAKE ONE TABLET BY MOUTH EVERY MORNING FOR VITAMIN D DEFICIENCY Indication: FOR VITAMIN D DEFICIENCY LISINOPRIL 20MG TAB Qty: 45 for 90 days expires: 02/17/2025; last filled: 08/06/2024; active Sig: TAKE ONE-HALF TABLET BY MOUTH EVERY MORNING FOR HEART OR HIGH BLOOD PRESSURE ROSUVASTATIN CA 40MG TAB Qty: 90 for 90 days expires: 02/17/2025; last filled: 04/19/2024; active Sig: TAKE ONE TABLET BY MOUTH AT BEDTIME FOR CHOLESTEROL. REPORT ANY UNEXPLAINED MUSCLE PAIN OR WEAKNESS TO YOUR DOCTOR. TAMSULOSIN HCL 0.4MG CAP Qty: 90 for 90 days expires: 02/17/2025; last filled: 06/07/2024; active Sig: TAKE ONE CAPSULE BY MOUTH ONCE A DAY FOR PROSTATE TAKE WITH FOOD Indication: FOR PROSTATE *CYANOCOBALAMIN 1000MCG TAB Qty: 100 for 90 days expires: 02/12/2025; last filled: 05/03/2024; active Sig: TAKE ONE TABLET BY MOUTH EVERY MORNING FOR VITAMIN DEFICIENCY Indication: FOR VITAMIN DEFICIENCY NITROGLYCERIN 0.4MG SL TAB Qty: 100 for 30 days expires: 01/29/2025; last filled: 08/21/2024; active Sig: DISSOLVE ONE TABLET UNDER THE TONGUE EVERY MORNING NEEDED FOR CHEST PAIN. IF NO IMPROVEMENT AFTER FIRST DOSE CALL . MAY TAKE 2 CLOPIDOGREL BISULFATE 75MG TAB Qty: 90 for 90 days expires: 07/28/2025; last filled: 10/18/2024; active/susp Sig: TAKE ONE TABLET BY MOUTH ONCE A DAY TO PREVENT BLOOD CLOTS Non-VA ASPIRIN 81MG EC TAB 81MG MOUTH ONCE A DAY MEDICATION REVIEW AND RECONCILIATION Medications could not be reviewed or reconciled at this time. ALLERGIES/ADVERSE REACTIONS No known allergies SEDATION/CONSENT CodeStatus: Full Code Anesthesia: consult considered Sedation by Cardiology Planned sedation level: Moderate Mallampati Class 3: only soft palate visible Mouth: Teeth Airway: Normal Jaw/Neck mobility: Normal No difficulty with prior moderate sedation, analgesia, general anesthesia and/or regional anesthesia. Physical status assessment (ASA class): 4 - Patient with severe systemic disease that is incapacitating and life threatening NPO for procedure was explained to patient/surrogate. NPO since: me The risks, benefits, and alternatives of the procedure and sedation/analgesia were explained to and discussed with the patient/surrogate in detail. All questions have been answered and the patient/surrogate understands the potential risks and benefits and consents to the procedure and the plan for sedation. PROCEDURE PLAN Planned Diagnostic Procedures: Left Heart Catheterization Coronary Angiography Planned Therapeutic Procedures: PCI Planned Other Procedures: Ultrasound guidance for vascular access SUMMARY 589A4 [facility]-CV:[id number] V0001 08/27/2024 /rick MASON PROCESS ARCHITECT Signed: 08/27/2024 14:01 /es/ KEVINSEBASTIAN VAZQUEZ PHYSICIAN Cosigned: 08/27/2024 14:08 for KAYLA BERMUDEZ PHYSICIAN 08/27/2024 ADDENDUM STATUS: COMPLETED I agree with the fellow with any exceptions as noted below. Please excuse any typos or brevity. I have discussed with the patient about risks, indications, benefits and alternatives of cardiac catheterization and PCI in great detail. Explained in detail regarding the risk of VT, stroke, emergency CABG, arrhythmias needing shock and CPR, risk of vascular injury needing surgical repair, dissection and perforation of vessels- needing covered stent vs urgent surgery, risk of bleeding requiring transfusions, contrast reaction needing emergent treatment, risk of kidney damage needing dialysis, etc. and other comorbidities and/ or due to any complications. I have also mentioned that other possibility is to treat with medications alone. After understanding risks and benefits, patient prefers gold standard evaluation with cardiac catheterization as benefits of the procedure outweigh the risks given VT. Contrast induced nephropathy risk score reviewed with patient, no family at bedside. d/w EP team Dr Rodrigues. prelim EF read is 25-30%, severely reduced LVEF, decreased from prior. Please see separate note in the CPRS for written informed consent. Obtained written informed consent, we will proceed with cardiac catheterization +/-PCI /es/ KEVIN DAVE VAZQUEZ PHYSICIAN Signed: 08/27/2024 14:11 DAMARI MASON [facility]
--- OUTSIDE RECORDS SUMMARY | 2024-09-25 16:05 | XMS_ITS ---
Author Name [facility] [place] [facility] [place] [facility] [place] Address [address] [place] [address] Care Team Providers Care President Financial Institution Name Role Phone ABIGAIL ÁLVAREZ Primary Care [...] PART A Feb 07, 2007 PART A [id number] TEQUILA ALIYAH PATIENT MEDICARE (WNR) MEDICARE (M) PART A Feb 07, 2007 PART A [id number] ALIYAH COREY PATIENT Selected Encounter This section includes the information on record at [place] for the Encounter. Date/Time Encounter Type Encounter Description Reason Provider Source Aug 27, 2024 08:45 AM Insertion of Defibrillator Lead into R [facility], Perc Approach HOSPITALIZATION ICD-10-CM I44.7 Left bundle-branch block, unspecified MAHBOOB,FRANCES ASSAR IHE Encounter Template Text not used by [place] Assessments - Encounter Diagnoses This section includes the primary and secondary diagnoses documented for the Encounter. Date/Time Primary/Secondary Diagnosis Diagnosis Name Provider Source Sep 01, 2024 03:09 PM Diagnosis for Length of Stay Other ventricular tachycardia [facility] Sep 01, 2024 03:09 PM SECONDARY Acute ischemic heart disease, unspecified [facility] Sep 01, 2024 03:09 PM SECONDARY Athscl heart disease of [place] cor art w oth ang pctrs [facility] Sep 01, 2024 03:09 PM SECONDARY Benign prostatic hyperplasia without lower urinry tract symp [facility] Sep 01, 2024 03:09 PM SECONDARY Bradycardia, unspecified [facility] Sep 01, 2024 03:09 PM SECONDARY Cerebral edema [facility] Sep 01, 2024 03:09 PM SECONDARY Chronic systolic (congestive) heart failure [facility] Sep 01, 2024 03:09 PM SECONDARY Chronic total occlusion of coronary artery [facility] Sep 01, 2024 03:09 PM SECONDARY Deficiency of other specified B group vitamins [facility] Sep 01, 2024 03:09 PM SECONDARY Gastro-esophageal reflux disease without esophagitis [facility] Sep 01, 2024 03:09 PM SECONDARY Hyperlipidemia, unspecified [facility] Sep 01, 2024 03:09 PM SECONDARY Hypertensive heart disease with heart failure [facility] Sep 01, 2024 03:09 PM SECONDARY Ischemic cardiomyopathy [facility] Sep 01, 2024 03:09 PM SECONDARY Left bundle-branch block, unspecified [facility] Sep 01, 2024 03:09 PM SECONDARY intermediate accountant (current) use of antithrombotics/antip latelets [facility] Sep 01, 2024 03:09 PM SECONDARY intermediate accountant (current) use of aspirin [facility] Sep 01, 2024 03:09 PM SECONDARY Nonrheumatic aortic (valve) insufficiency [facility] Sep 01, 2024 03:09 PM SECONDARY Obstructive sleep apnea (adult) (pediatric) [facility] Sep 01, 2024 03:09 PM SECONDARY Personal history of malignant melanoma of skin [facility] Sep 01, 2024 03:09 PM SECONDARY Presence of coronary angioplasty implant and graft [facility] Sep 01, 2024 03:09 PM SECONDARY Vitamin D deficiency, unspecified [facility] Plan of Treatment: Future Appointments (+ 6 months) and Future Tests (+/- 45 days) The Plan of Treatment section includes [facility] care activities for the [facility] [place] [facility] This section includes future appointments and future orders which are active, pending or scheduled. Future Appointments This section includes appointments that were scheduled to occur 6 months from the date of the Encounter, up to a maximum of 20 appointments. The data comes from all [facility]. Appointment Date/Time Appointment Type Appointme nt Facility Name Sep 02, 2024 01:00 PM AMBULATORY - NONE [facility] Sep 13, 2024 02:00 PM AMBULATORY - MEDICINE [facility] October 08, 2024 10:30 AM AMBULATORY - MEDICINE [facility] October 12, 2024 09:00 AM AMBULATORY - NONE [facility] October 12, 2024 10:00 AM [facility] October 25, 2024 02:00 PM AMBULATORY - SURGERY [facility] Nov 15, 2024 02:00 PM AMBULATORY - MEDICINE [facility] Dec 13, 2024 10:00 AM [facility]ORY - [facility]ICINE [facility] Dec 21, 2024 10:30 AM AMBULATORY - MEDICINE [facility] Feb 15, 2025 10:00 AM [facility]ORY - [facility]ICINE [facility] Feb 15, 2025 11:00 AM AMBULATORY - NONE [facility] Active, Pending, and Scheduled Orders This section includes a listing of several types of active, pending, and scheduled orders, including clinic medications orders, diagnostic test orders, procedure orders and consult orders; where the start date of the order is 45 days before the date of the Encounter or 45 days after the date of theEncounter. The data comes from all [facility]. Test Date/Time Test Type Test Details Facility Name Jul 29, 2024 02:19 PM Procedure Order CP CO-ECHO FUTURE CARE (IA) CP CO-ECHO FUTURE CARE-589A4 Proc Well Site Drilling Engineer's Choice [facility] Jul 29, 2024 02:19 PM Procedure Order EKG OUTPAT IENT-CO EKG Needed on: Jul Urgency: ROUTINE Diagnosis/Reason: Ischemia (125.9) [facility] Aug 31, 2024 12:48 AM Laboratory - Blood Bank Order TYPE & SCREEN - LAB BLOOD,PINK/PURPLE (7-9ML) WC [facility] Lab Results: +/- 30 days of the encounter This section includes the Chemistry and Hematology Lab Results on record with [facility] for the patient. Radiology Reports and Pathology Reports are provided separately, in subsequent sections. Lab Results This section contains the Chemistry/Hematology Results that were resulted 30 days before or 30 daysafter the date of the Encounter. Date/Time Source Result Type Result - Unit Interpretation Reference Range Specimen Type Comment Sep 01, 2024 03:14 AM [facility] MAGNESIUM (mg/dL) PLASMA Specimen Type: PLASMA No comment entered. Ordering Provider: LEEROY HUGHES Report Released Date/Time: Aug 31, 2024 09:28 AM Reporting Lab: [address] [phone] Performing Lab: [address] [address] MAGNESIUM (mg/dL) 2.1 mg/dL 1.6-2.6 Sep 01, 2024 03:14 AM [facility] COMPREHENSIVE METABOLIC PANEL PLASMA Specimen Type: PLASMA No comment entered. Ordering Provider: LEEROY HUGHES Report Released Date/Time: Aug 31, 2024 09:28 AM Reporting Lab: [address] [address] Performing Lab: [address] [address] *CREATININE 1.12 mg/dL 0.70-1.30 UREA NITROGEN mg/dL [...] 2020) 66 Sep 01, 2024 03:14 AM [facility] CBC & DIFF BLOOD Specimen Type: BLOOD No comment entered. Ordering Provider: LEEROY HUGHES Report Released Date/Time: Aug 31, 2024 09:28 AM Reporting Lab: [address] [address] Performing Lab: [address] [address] WBC 15.00 10*3/uL H 3.6-11.2 RBC 4.10 [...] % 0.6 Aug 31, 2024 05:45 AM [facility] ANTI-Xa (CO) BLOOD Specimen Type: BLOOD Comment: Critical Values: Unfractionated Heparin: > 1.0 IU/mL For Low Molecular Weight Heparin reference ranges contact lab. Ordering Provider: WAQAR BARRIOS Report Released Date/Time: Aug 27, 2024 12:18 PM Reporting Lab: [address] [address] Performing Lab: [address] [address] ANTI-Xa (CO) <0.04 [IU]/mL 0.3-0.7 Aug 31, 2024 05:45 AM [facility] MAGNESIUM (mg/dL) PLASMA Specimen Ty pe: PLASMA No comment entered. Ordering Provider: LEEROY HUGHES Report Released Date/Time: Aug 30, 2024 11:25 AM Reporting Lab: [place] [phone] Performing Lab: [place] [phone] MAGNESIUM (mg/dL) 2.2 mg/dL 1.6-2.6 Aug 31, 2024 05:45 AM [facility] COMPREHENSIVE METABOLIC PANEL PLASMA Specimen Type: PLASMA No comment entered. Ordering Provider: LEEROY HUGHES Report Released Date/Time: Aug 30, 2024 11:25 AM Reporting Lab: [address] Performing Lab: [place] [phone] *CREATININE 1.04 mg/dL 0.70-1.30 UREA NITROGEN mg/dL [...] 2020) 72 Aug 31, 2024 05:45 AM [facility] CBC & DIFF BLOOD Specimen Type: BLOOD No comment entered. Ordering Provider: LEEROY HUGHES Report Released Date/Time: Aug 30, 2024 11:25 AM Reporting Lab: [address] Performing Lab: [address] WBC 9.50 10*3/uL 3.6-11.2 RBC 4.12 10*6/uL [...] % 0.7 Aug 30, 2024 04:23 AM [facility] CMP-NONFASTING (CO) PLASMA Specimen Type: PLASMA No comment entered. Ordering Provider: WAQAR BARRIOS Report Released Date/Time: Aug 29, 2024 12:07 PM Reporting Lab: [address] [address] Performing Lab: [address] [address] *CREATININE 1.10 mg/dL 0.70-1.30 UREA NITROGEN mg/dL [...] 2020) 67 Aug 30, 2024 04:23 AM [facility] CBC & DIFF BLOOD Specimen Type: BLOOD No comment entered. Ordering Provider: WAQAR BARRIOS Report Released Date/Time: Aug 29, 2024 12:07 PM Reporting Lab: [address] [address] Performing Lab: [address] [address] WBC 8.80 10*3/uL 3.6-11.2 RBC 3.99 10*6/uL [...] % 0.9 Aug 29, 2024 04:23 AM [facility] CMP-NONFASTING (CO) PLASMA Specimen Type: PLASMA No comment entered. Ordering Provider: WAQAR BARRIOS Report Released Date/Time: Aug 28, 2024 10:54 AM Reporting Lab: [address] [address] Performing Lab: [address] [address] *CREATININE 1.04 mg/dL 0.70-1.30 UREA NITROGEN mg/dL [...] 2020) 72 Aug 29, 2024 04:23 AM [facility] CBC & DIFF BLOOD Specimen Type: BLOOD No comment entered. Ordering Provider: WAQAR BARRIOS Report Released Date/Time: Aug 28, 2024 10:54 AM Reporting Lab: [address] [address] Performing Lab: [address] [address] WBC 8.50 10*3/uL 3.6-11.2 RBC 4.28 10*6/uL [...] % 0.6 Aug 28, 2024 04:50 AM [facility] T4 FREE SERUM Specimen Type: SERUM No comment entered. Ordering Provider: WAQAR BARRIOS Report Released Date/Time: Aug 27, 2024 03:47 PM Reporting Lab: [place] [address] Performing Lab: [place] [address] T4 FREE 0.8 ng/dL 0.7-1.48 Aug 28, 2024 04:50 AM [facility] TSH SERUM Specimen Type: SERUM No comment entered. Ordering Provider: WAQAR BARRIOS Report Released Date/Time: Aug 27, 2024 03:47 PM Reporting Lab: [place] [phone] Performing Lab: [place] [address] *TSH 1.66 u[IU]/mL 0.47-5.00 Aug 28, 2024 04:50 AM [facility] CMP-NONFASTING (CO) PLASMA Specimen Type: PLASMA No comment entered. Ordering Provider: LUIS YANES Report Released Date/Time: Aug 28, 2024 03:03 AM Reporting Lab: [place] [phone] Performing Lab: [place] [phone] *CREATININE 0.87 mg/dL 0.70-1.30 UREA NITROGEN mg/dL [...] 2020) 86 Aug 28, 2024 04:50 AM [facility] CBC & DIFF BLOOD Specimen Type: BLOOD No comment entered. Ordering Provider: LUIS YANES Report Released Date/Time: Aug 28, 2024 03:03 AM Reporting Lab: [address] [address] Performing Lab: [address] [address] WBC 9.20 10*3/uL 3.6-11.2 RBC 4.23 10*6/uL [...] % 0.5 Aug 27, 2024 02:14 PM [facility] ACT.CLOTTING TIME BLOOD Specimen Ty pe: BLOOD No comment entered. Ordering Provider: JEROME DOTY Report Released Date/Time: Aug 27, 2024 02:44 PM Reporting Lab: [address] [address] Performing Lab: [address] [address] ACT.CLOTTING TIME 153 s H 74-137 Aug 27, 2024 11:30 AM [facility] hsTROP-CO PLASMA Specimen Type: PLASMA Comment: TROP-T-HS Called to: Velvet Bartlett RN at: 1213 on: 08/27/24 by: Jasvir Cunningham Result read back to comply with Joint Commission Ordering Provider: WAQAR BARRIOS Report Released Date/Time: Aug 27, 2024 09:20 AM Reporting Lab: [address] [address] Performing Lab: [place] [phone] hsTROP-CO 1017 HH See Interpretation Aug 27, 2024 08:55 AM [facility] MRSA SURVL NARES DNA NARES Specimen Type: NARES No comment entered. Ordering Provider: JEROME DOTY Report Released Date/Time: Aug 27, 2024 08:46 AM Reporting Lab: [address] [address] Performing Lab: [address] [address] MRSA SURVL NARES DNA Negative Negative Aug 27, 2024 08:20 AM [facility] URINALYSIS (ZOILA,WI,CO,EK) URINE Spec imen Type: URINE Comment: Microscopic not indicated Ordering Provider: RYAN HALL Report Released Date/Time: Aug 27, 2024 06:51 AM Reporting Lab: [address] [address] Performing Lab: [address] [address] *URINE COLOR Light-Yellow *URINE APPEARANCE Clear Clear *URINE PROTEIN Negative mg/dL Negative-T race *URINE LEUKOCYTE Negative Negative *URINE NITRITE Negative Negative *URINE BLOOD Negative Negative *URINE GLUCOSE Negative mg/dL Negative *URINE KETONES Negative mg/dL Negative *URINE PH 7.0 5.0-8.0 *URINE SPECIFIC GRAVITY 1.011 1.005-1. 030 *URINE BILIRUBIN Negative Negative *URINE UROBILINOGEN Normal mg/dL Normal Aug 27, 2024 06:40 AM [facility] PT/INR PLASMA Specimen Type: PLASMA No comment entered. Ordering Provider: RYAN HALL Report Released Date/Time: Aug 27, 2024 06:51 AM Reporting Lab: [address] [phone] Performing Lab: [address] *INR 1.0 {INR} *PT 11.4 s 9.4-12.5 Aug 27, 2024 06:40 AM [facility] COMPREHENSIVE METABOLIC PANEL PLASMA Specimen Type: PLASMA No comment entered. Ordering Provider: RYAN HALL Report Released Date/Time: Aug 27, 2024 06:51 AM Reporting Lab: [address] Performing Lab: [place] [phone] *CREATININE 1.14 mg/dL 0.70-1.30 UREA NITROGEN mg/dL [...] 2020) 64 Aug 27, 2024 06:40 AM [facility] APTT PLASMA Specimen Type: PLASMA No comment entered. Ordering Provider: RYAN HALL Report Released Date/Time: Aug 27, 2024 06:51 AM Reporting Lab: [address] Performing Lab: [address] APTT 29.8 s 26.7-39.9 Aug 27, 2024 06:40 AM [facility] CBC & DIFF BLOOD Specimen Type: BLOOD No comment entered. Ordering Provider: RYAN HALL Report Released Date/Time: Aug 27, 2024 06:51 AM Reporting Lab: [address] Performing Lab: [address] WBC 15.70 10*3/uL H 3.6-11.2 RBC 4.80 [...] 0.00 -0.20 Aug 27, 2024 06:40 AM [facility] ANTI-Xa (CO) BLOOD Specimen Type: BLOOD Comment: Critical Values: Unfractionated Heparin: > 1.0 IU/mL For Low Molecular Weight Heparin reference ranges contact lab. Ordering Provider: RYAN HALL Report Released Date/Time: Aug 27, 2024 07:24 AM Reporting Lab: [place] [phone] Performing Lab: [place] [phone] ANTI-Xa (CO) <0.04 [IU]/mL 0.3-0.7 Aug 27, 2024 06:40 AM [facility] NTproBNP ([place]) PLASMA Specimen Typ e: PLASMA No comment entered. Ordering Provider: RYAN HALL Report Released Date/Time: Aug 27, 2024 06:51 AM Reporting Lab: [address] Performing Lab: [place] [phone] NTproBNP (CO,[place]) 410 pg/mL -See Interpre tation Aug 27, 2024 06:40 AM [facility] hsTROP-CO PLASMA Specimen Type: PLASMA No comment entered. Ordering Provider: RYAN HALL Report Released Date/Time: Aug 27, 2024 06:51 AM Reporting Lab: [address] [address] Performing Lab: [address] [address] hsTROP-CO 15 See Interpretation Aug 27, 2024 06:40 AM [facility] PATHOLOGIST REVIEW BLOOD Specimen T ype: BLOOD Comment: Reviewed by Dr. Chepe Yu: Reactive Lymphocytes. Ordering Provider: RYAN HALL Report Released Date/Time: Aug 27, 2024 06:51 AM Reporting Lab: [address] [address] Performing Lab: [address] [address] PATHOLOGIST REVIEW comment Vital Signs: All taken on the encounter date This section contains inpatient and outpatient Vital Signs collected on the date of the Encounter. Date/Time Temperature Pulse Blood Pressure Respiratory Rate SP02 Pain Height Weight Body Mass Index Source Aug 27, 2024 08:00 PM 97.7 51 138/67 16 95 0 [facility] Aug 27, 2024 08:30 AM 65 138/79 21 98 0 [facility] Aug 27, 2024 08:30 AM 96.8 68 135/74 21 97 0 195.99 31 [facility] Aug 27, 2024 08:19 AM 98.6 0 [facility] Aug 27, 2024 08:15 AM 74 135/71 18 99 [facility] Social History: Smoking Status (Most current) and Tobacco Use (All prior to encounter date) This section includes the most current, and the historical, smoking and tobacco- related health factors from the [place] facility where the Encounter took place. Current Smoking Status This section includes the most current smoking, or tobacco-related health factor, from the [place] facility where the Encounter took place. Date/Time Current Smoking Status Comment Blanco cameron Apr 30, 2023 01:00 PM VA-TOBACCO QUIT 15 YRS OR MORE [facility] Tobacco Use History This section includes a history of the smoking, or tobacco-related health factors, that were collected on or before the date of the Encounter. The data comes from the [place] facility where the Encounter took place. Date/Time Smoking Status/Tobacco Use Comment F acility Apr 30, 2023 01:00 PM VA-TOBACCO QUIT 15 YRS OR MORE [facility] Apr 04, 2022 09:15 AM VA-TOBACCO FORMER USER [facility] Apr 04, 2022 09:15 AM [place]-TOBACCO QUIT 15 YRS OR MORE [facility] Jul 18, 2021 10:13 AM INPT TOBACCO SCREENED NEGATIVE [facility] Apr 27, 2021 07:00 AM INPT TOBACCO SCREENED NEGATIVE [facility] October 31, 2020 02:30 PM INPT TOBACCO SCREENED NEGATIVE [facility] October 08, 2020 10:22 AM INPT TOBACCO SCREENED NEGATIVE [facility] October 07, 2020 07:22 AM VA-TOBACCO FORMER USER [facility] Sep 30, 2020 11:06 AM INPT TOBACCO SCREENED NEGATIVE [facility] Sep 29, 2020 04:05 PM VA-TOBACCO NEVER USED [facility] Jan 17, 2020 10:21 AM VA-TOBACCO FORMER USER [facility] Jan 17, 2020 10:21 AM [place]-TOBACCO QUIT 15 YRS OR MORE [facility] Advance Directives: All historical and current Section Date Range: From patient's date of to the date document was created. This section includes ALL of a patient's completed or amended [place] Advance and Rescinded Directives. The entries below indicate that a directive exists for the patient, but an actual copy is not included with this document. The data comes from all [facility]. Date Advance Directives Provider Source October 22, 2022 ADVANCE DIRECTIVE DISCUSSION ARGELIA CHAVEZ [facility] Apr 04, 2022 ADVANCE DIRECTIVE DISCUSSION RAY ROQUE [facility] Sep 30, 2020 ADVANCE DIRECTIVE DISCUSSION ILYA BROWN [facility] Jul 26, 2020 ADVANCE DIRECTIVE DISCUSSION FABY TAMEZ [facility] Apr 17, 2020 ADVANCE DIRECTIVE DISCUSSION LINETTE RAMIREZ [facility] Jan 17, 2020 ADVANCE DIRECTIVE DISCUSSION LINETTE RAMIREZ [facility] Feb 24, 2009 ADVANCE DIRECTIVE HECTOR [facility] Radiology Reports: +/- 30 days [...] the Encounter. The data comes from all [place] treatment facilities. Date/Time Radiology Report Provider Source Sep 01, 2024 06:18 AM CHEST 2 VIEWS: ALIYAH COREY [id number] -1940 M Exm Date: SEP 01, 2024@06:18 Req Phys: TERRELL GUO Loc: ICU PCU MED-CO/09-01-2024@07:2 Img Loc: CO-TRIPE SCRAPER Service: [facility] [place] [address] (Case [id number] COMPLETE) CHEST 2 VIEWS (RAD Detailed) CPT:66186 Reason for Study: Assess pulmonary status S/P Pacemaker/AICD implant Clinical History: Morning after procedure DO NOT raise left arm above shoulder level. Report Status: Verified Date Reported: SEP 01, 2024 Date Verified: SEP 01, 2024 Statistics Manager E-Sig:/ES/Aubrie Garcia MD PhD Report: History: Pacemaker [...] Aubrie Garcia MD PhD, CHIEF, CLINICAL SUPPORT (Statistics Manager) /MDT AUBRIE GARCIA ROBI [facility] Aug 31, 2024 04:27 PM CHEST 1 VIEW: ALIYAH COREY [id number] -1940 M Exm Date: AUG 31, 2024@16:27 Req Phys: TERRELL GUO Loc: ICU PCU MED-CO/09-01-2024@07:2 Img Loc: CO-TRIPE SCRAPER Service: [facility] [place] [address] (Case [id number] COMPLETE) CHEST 1 VIEW (RAD Detailed) CPT:20728 Proc Modifiers : PORTABLE Reason for Study: s/p pacemaker Clinical History: Report Status: Verified Date Reported: SEP 01, 2024 Date Verified: SEP 01, 2024 Statistics Manager E-Sig:/ES/Aubrie Garcia MD PhD Report: History: Pacemaker [...] Aubrie Garcia MD PhD, CHIEF, CLINICAL SUPPORT (Statistics Manager) /AUBRIE VELEZ [facility] Aug 31, 2024 05:05 AM CHEST 1 VIEW: TEQUILAALIYAH JAMIN [id number] -1940 M Exm Date: AUG 31, 2024@05:05 Req Phys: LEEROY HUGHES LASROBIN Pat Loc: ICU PCU MED-CO/08-31-2024@07:3 Img Loc: CO-TRIPE SCRAPER Service: [facility] [place] [address] (Case [id number] COMPLETE) CHEST 1 VIEW (RAD Detailed) CPT:89496 Reason for Study: Assess pulmonary function s/p pacemaker AICD placement Clinical History: Report Status: Verified Date Reported: AUG 31, 2024 Date Verified: AUG 31, 2024 Statistics Manager E-Sig:/ES/Aubrie Garcia MD PhD Report: History: AICD [...] Aubrie Garcia MD PhD, CHIEF, CLINICAL SUPPORT (Statistics Manager) /AUBRIE VELEZ [facility] Aug 27, 2024 06:51 AM CHEST 1 VIEW: ALIYAH COREY [id number] -1940 M Exm Date: AUG 27, 2024@06:51 Req Phys: ISABELRYANRITA Medina Loc: CO-ED (Req'g Loc) Img Loc: CO-TRIPE SCRAPER Service: Unknown [place] [address] (Case [id number] COMPLETE) CHEST 1 VIEW (RAD Detailed) CPT:53418 Proc Modifiers : PORTABLE Reason for Study: vtach Clinical History: If ordering Portable X-Ray call Tech at [phone] for prompt response Report Status: Verified Date Reported: AUG 27, 2024 Date Verified: AUG 27, 2024 Statistics Manager E-Sig:/ES/Aubrie Garcia MD PhD Report: History: Ventricular tachycardia. Single view of the chest. Comparison: 05/20/2023. Findings: Lungs are clear. Mild cardiomegaly without pulmonary edema. Soft tissues are unremarkable. Atherosclerosis. Osseous structures demonstrate degenerative changes. Impression: Mild cardiomegaly without pulmonary edema. READING PHYSICIAN: Aubrie Garcia 08/27/2024 7:29 AM Primary Diagnostic Code: NO ALERT REQUIRED Primary Interpreting Staff: Aubrie Garcia MD PhD, CHIEF, CLINICAL SUPPORT (Statistics Manager) /AUBRIE VELEZ [facility] Encounter Notes: All associated encounter notes This section contains the clinical notes associated to the Encounter. Date/Time Encounter Note(s) Provider Source Sep 01, 2024 03:09 PM DISCHARGE SUMMARY: LOCAL TITLE: CO-DISCHARGE SUMMARY (D) STANDARD TITLE: DISCHARGE SUMMARY DICT DATE: SEP 01, 2024@23:54 ENTRY DATE: SEP 01, 2024@23:54:51 DICTATED BY: LEEROY HUGHES ATTENDING: CHANDU REYES URGENCY: routine STATUS: COMPLETED CO-DISCHARGE SUMMARY (D) Has ADDENDA Admission Date: Discharge Date: Aug 1. PRINCIPAL DIAGNOSIS: Monomonrphic Ventricular Tachycardia Diagnosis Present On Admission? Yes = not present at the time of admission #Monomophic VT #HFrEF (Now 30-35%),Ischemic Cardiomyopathy #CAD s/p Multiple Stents/ SLURRY BLENDER RPLS #Chronic Stable Angina #HTN #HLD #LBBB #Sinus bradycardia #BPH #GERD #ILEANA #History of malignant melanoma #Vit D deficiency #B12 deficiency 3. OPERATIONS/PROCEDURES PERFORMED THIS ADMISSION: 08/31 biventricular ICD placement. 4. HISTORY: Aliyah Corey is an 84-year-old male with PMH of CAD, chronic angina, HTN, HLD, likely ischemic cardiomyopathy, left bundle branch block, aortic regurgitation, sleep apnea, history of malignant melanoma, BPH who presents with chest pain on 08/27/2024 after intercourse this morning leading to urgent presentation to ER where he was found to be in ventricular tachycardia. Amiodarone bolus and drip started and he converted to sinus rhythm. Initian High-sensitivity troponin taken immediately during event is benign at 15. Cardiology consulted. When seen by the admitting team in the AM, no significant symptoms, currently admitted under PCU status in the ICU. Heart rate is in 60s with sinus rhythm noted. No active chest pain. Later in the afternoon Hs-Trop found to be 1017. Cardiology had planned already earlier in the day to perform cardiac catheterization. 5. REVIEW OF SYSTEMS: Negative. ALLERGIES/ADR: Current Allergy Assessment: Patient has answered NKA 6. IMPORTANT LAB RESULTS (LAST 48 HOURS): Collection DT Specimen Test Name Result Units Ref Range 09/01/2024 03:14 PLASMA eGFR(CKD-EPI) 66 SODIUM 138 mEq/L 136 - 145 POTASSIUM 4.3 mEq/L 3.5 - 5 CHLORIDE 108 H mEq/L 98 - 107 CO2 21 L mEq/L 22 - 31 UREA 17 mg/dL 9 - 25 *CREATININE 1.12 mg/dL 0.70 - 1.30 GLUCOSE 109 H mg/dL 72 - 99 CALCIUM (mg/dL) 9.4 mg/dL 8.4 - 10.4 MAGNESIUM (mg/dL) 2.1 mg/dL 1.6 - 2.6 AST 23 U/L 5 - 34 ALT 9 U/L 8 - 40 ALKPHOS 58 U/L 40 - 150 TOTAL BILIRUBIN 1.0 mg/dL 0.2 - 1.2 PROTEIN,TOTAL 7.1 g/dL 6.0 - 8.6 ALBUMIN 4.3 g/dL 3.4 - 5.0 09/01/2024 03:14 BLOOD WBC 15.00 H K/cmm 3.6 - 11.2 RBC 4.10 M/ul 4.10 - 5.70 HGB 13.6 g/dL 13.1 - 16.8 HCT 37.7 L % 38.2 - 48.4 MCV 92.0 fl 80.0 - 100.0 MCH 33.2 pg 27.0 - 34.0 MCHC 36.1 H g/dL 33.0 - 36.0 RDW 12.1 % 11.8 - 15.1 PLATELET COUNT 166 K/cmm 150 - 400 MPV 10.9 fl 7.5 - 11.2 NEUT % 61.0 % LYMPHOCYTES, AUTO 30.0 % MONOCYTES, AUTO% 7.9 % EOSINOPHILS, AUTO 0.3 % BASOPHILS, AUTO% 0.2 % IG % 0.6 % NEUT,ABS 9.13 H K/cmm 2.10 - 8.00 LYMPH,ABS 4.50 K/cmm 0.77 - 4.50 MONO, ABS 1.19 H K/cmm 0.19 - 0.8 EO, ABS 0.05 K/cmm 0.00 - 0.60 BASO,ABS 0.03 K/cmm 0.00 - 0.20 IG, ABS 0.09 H K/cmm 0.00 - 0.05 08/31/2024 05:45 BLOOD WBC 9.50 K/cmm 3.6 - 11.2 RBC 4.12 M/ul 4.10 - 5.70 HGB 14.0 g/dL 13.1 - 16.8 HCT 38.2 % 38.2 - 48.4 MCV 92.7 fl 80.0 - 100.0 MCH 34.0 pg 27.0 - 34.0 MCHC 36.6 H g/dL 33.0 - 36.0 RDW 12.4 % 11.8 - 15.1 PLATELET COUNT 158 K/cmm 150 - 400 MPV 10.9 fl 7.5 - 11.2 NEUT % 60.3 % LYMPHOCYTES, AUTO 30.8 % MONOCYTES, AUTO% 7.2 % EOSINOPHILS, AUTO 0.6 % BASOPHILS, AUTO% 0.4 % IG % 0.7 % NEUT,ABS 5.73 K/cmm 2.10 - 8.00 LYMPH,ABS 2.93 K/cmm 0.77 - 4.50 MONO, ABS 0.68 K/cmm 0.19 - 0.8 EO, ABS 0.06 K/cmm 0.00 - 0.60 BASO,ABS 0.04 K/cmm 0.00 - 0.20 IG, ABS 0.07 H K/cmm 0.00 - 0.05 08/31/2024 05:45 PLASMA eGFR(CKD-EPI) 72 SODIUM 140 mEq/L 136 - 145 POTASSIUM 4.5 mEq/L 3.5 - 5 CHLORIDE 108 H mEq/L 98 - 107 CO2 24 mEq/L 22 - 31 UREA 18 mg/dL 9 - 25 *CREATININE 1.04 mg/dL 0.70 - 1.30 GLUCOSE 93 mg/dL 72 - 99 CALCIUM (mg/dL) 9.2 mg/dL 8.4 - 10.4 MAGNESIUM (mg/dL) 2.2 mg/dL 1.6 - 2.6 AST 12 U/L 5 - 34 ALT 8 U/L 8 - 40 ALKPHOS 56 U/L 40 - 150 TOTAL BILIRUBIN 0.7 mg/dL 0.2 - 1.2 PROTEIN,TOTAL 7.0 g/dL 6.0 - 8.6 ALBUMIN 4.1 g/dL 3.4 - 5.0 08/31/2024 05:45 BLOOD !! ANTI-Xa (CO) <0.04 IU/mL 0.3 - 0.7 !! Indicates COMMENTS AVAILABLE...Refer to Interim Lab Report. 7. IMAGING / ECG DATA: N/A 8. PHYSICAL EXAMINATION: GENERAL: NAD. HEENT: Normocephalic. CV: RRR, s1/s2, no murmurs, rubs, or gallops. RESP: Symmetrical expansion, CTA b/l. ABD: Soft, non-tender, non-distended, BS+. NEURO: AAOx3, no focal deficits. EXT: No clubbing, cyanosis, or edema. PSYCH: Appropriate mood and affect. 9. HOSPITAL COURSE: Aliyah Corey is an 84 year old male with CAD s/p multiple Stents/ SLURRY BLENDER RPLS, chronic angina, HTN, HLD, ischemic cardiomyopathy (previously mildly reduced EF 45-50%), LBBB, aortic regurgitation, ILEANA, hx of malignant melenoma, BPH. Presented to ED on 08/27 for chest pain and palpitations post seual intercourse with his .Found to be in monomorphic VT which converted with IV amiodarone. Normal electrolytes. Cardiology has followed. Initial troponin on admission negative; however, increased > 1,000 by noon on day of admissoin. Known hx of ischemic cardiomyopathy with EF 45-50%. Repeat TTE this admission with EF 20-25%. S/p LHC on 08/27 without evidence of new lesions. Initiating GDMT as HD allow. Sinus bradycardic in the 40's. Will reduce metoprolol succinate to 25 mg daily and decrease amiodarone, as below. Currently on 08/10, missing SGLT2i. Repeat limited echo 08/30 to assess EF, now 30-35%. EP consulted. Biventricular ICD placed successfully on 08/31. Will discharge on cephalexin 500 mg bid x5d. Discontinued home clopidogrel 75 mg daily and resumed home ASA 81 mg daily. Continue on amiodarone 400 mg daily. Continue on metoprolol succinate 25 mg daily, up-titrate as tolerated. Will need left arm sling for 24 hours followed by nocturnal sling for one week (09/01-09/08). Incision site dry for one week. Left arm activity restrictions for next three weeks (08/31-09/21) - including lifting greater than 10 lbs/driving/lifting above shoulder level. Follow up in EP PRESS OPERATOR HELPER clinic in one week. /rick HUGHES RESIDENT PHYSICIAN Signed: 09/02/2024 00:00 /santiago/ CHANDU REYES PHYSICIAN Cosigned: 09/02/2024 13:42 09/02/2024 ADDENDUM STATUS: COMPLETED Admission date: 08/27/2024. Discharge date: 09/01/2024. /rick HUGHES RESIDENT PHYSICIAN Signed: 09/02/2024 00:02 /santiago/ CHANDU REYES PHYSICIAN Cosigned: 09/02/2024 13:53 LEEROY HUGHES [facility] Sep 01, 2024 02:21 PM NURSING DISCHARGE NOTE: LOCAL TITLE: CO-NURSING DISCHARGE NOTE (D) STANDARD TITLE: NURSING DISCHARGE NOTE DATE OF NOTE: SEP 01, 2024@14:21 ENTRY DATE: SEP 01, 2024@14:22 AUTHOR: EMILY DALTON EXP COSIGNER: URGENCY: STATUS: COMPLETED DISCHARGE NOTE - Temperature: 97.2 F [36.2 C] (09/01/2024 08:55) Pulse: 60 (09/01/2024 08:55) Respirations: 22 (09/01/2024 08:55) Blood Pressure: 127/63 (09/01/2024 08:55) Weight: 193.79 lb [87.90 kg] (09/01/2024 06:50) Pain: 0 (09/01/2024 08:55) Primary Care Provider: ABIGAIL ÁLVAREZ Associate Provider: Patient Team : CO-BTW PACT *PARMINDER* Inpatient Provider: ADAN HATCH Patient's Is this number the number you can be reached at during the next 1-4 days for your PACT team to reach you? Yes Phone number where patient can be reached: MODE OF TRANSPORTATION: wheelchair DISCHARGED TO: home ACCOMPANIED BY: spouse == SKIN == Boris Scale 07/18/2021 Boris Scale 19 Or Higher 22 10/31/2020 Boris Scale 15-18 18 BORIS SKIN RISK ASSESSMENT Sensory Perception:4 = No Impairment Moisture: 4 = Rarely Moist Activity: 4 = Walks Frequently Mobility: 4 = No Limitation Nutrition: 4 = Excellent Friction: 3 = No Apparent Problem 19-23 No Risk Score: 23 CURRENT SKIN ASSESSMENT Skin Color: Usual for ethnicity Skin Temperature: Warm Skin Moisture: Normal Skin Turgor: Elastic (normal/immediate) SKIN PROBLEMS Other: Location(s): left chest incision; glued; DISTRIBUTION ESTIMATOR RISK FACTORS THAT INCREASE RISK FOR DEVELOPING PRESSURE INJURIES The patient/resident does not have any additional risk factors. INTERVENTIONS The pressure ulcer protocol interventions have changed. Education: Teach patient/caregiver importance of changing position frequently for pressure ulcer/injury prevention. Pressure-Redistribution measures: Encourage small, frequent position changes Individualized repositioning while out of bed to chair/wheelchair Turn and reposition every two hours while in bed Maximize mobilization: Individualized repositioning while out of bed to chair/wheelchair Limit sitting out of bed to less than two hours at a time Manage moisture: Maintain clean and dry skin No more than one linen layer below the patient/resident Manage nutrition: Provide or encourage oral care prn Reduce friction and shear: Raise the knee when elevating head of bed Pressure Ulcer Education: Patient/Caregiver was provided education on pressure ulcer prevention measures: Pressure redistribution measures, Prevention of friction/shear, Moisture management, Importance of nutrition Patient/Caregiver verbalized understanding: Yes Suicide Screen: [place] Suicide Severity Rating Scale (C-SSRS) screener 1. Over the past month, have you wished you were or wished you could go to sleep and not wake up? No 2. Over the past month, have you had any actual thoughts of killing yourself? No 3. Over the past month, have you been thinking about how you might do this? Response not required due to responses to other questions. 4. Over the past month, have you had these thoughts and had some intention of acting on them? Response not required due to responses to other questions. 5. Over the past month, have you started to work out or worked out the details of how to kill yourself? Response not required due to responses to other questions. 6. If yes, at any time in the past month did you intend to carry out this plan? Response not required due to responses to other questions. 7. In your lifetime, have you ever done anything, started to do anything, or prepared to do anything to end your life (for example, collected pills, obtained a gun, gave away valuables, went to the roof but didn't jump)? No 8. If YES, was this within the past 3 months? Response not required due to responses to other questions. ADDITIONAL DATA: Saline lock discontinued, Telemetry discontinued PATIENT EDUCATION: Self-Care Measures: Fall prevention safety measures, Range of motion PATIENT EDUCATION HANDOUTS Educational Material was provided to the patient and reviewed with the patient and/or family by the discharge staff prior to the patient's discharge? YES - Educational material was provided and reviewed with patient and/or family. Materials given: discharge paperwork and patient educated on icision care and precations to take in regards to new ICD. nursing tried to contact daughter to update her on medications per her request but she did not answer. patient has no concerns about going home. /santiago/ EMILY DALTON REGISTERED NURSE Signed: 09/01/2024 14:30 [address]ILY DALTON [place] [facility] Sep 01, 2024 11:37 AM PHYSICIAN EDUCATION DISCHARGE NOTE: LOCAL TITLE: CO-DISCHARGE INSTRUCTIONS (D) STANDARD TITLE: PHYSICIAN EDUCATION DISCHARGE NOTE DATE OF NOTE: SEP 01, 2024@11:37 ENTRY DATE: SEP 01, 2024@11:37:34 AUTHOR: HUGHES,LEEROY LASETER EXP COSIGNER: CHANDU REYES URGENCY: STATUS: COMPLETED Patient discharged from hospital stay that extended from Aug to Aug You were diagnosed with: Not listed: Monomorphic Ventricular Tachycardia Other problems treated: Not Listed:Ischemic Cardiomyopathy Symptoms to monitor: Monitor for chest pain, shortness of breath, dizziness, vision changes, fatigue, or falls. Outpatient Medication changes made at discharge and reason why: NEW medications - Amiodarone 400 mg daily. For heart rythm. - Cephalexin 500 mg twice a day for completion of 5 days worth. Last dose will be on 09/05. Post procedure antimicrobial coverage. - Spironolactone 25 mg in the morning. This is for heart failure. DISCONTINUE - Stop Amlodipine 10 mg daily. We have added other antihypertensive agents this admission. - Stop Clopidogrel 75 mg daily. You no longer need (still take daily aspirin 81 mg though). PLEASE CONTINUE - Aspirin 81 mg daily. Pending labs, pathology, radiology or other studies to follow-up on as an outpatient: Follow up with PCP within 7 days via phone call. Follow up with cardiology EP clinic in one weeks time. During your visit you were tested for COVID-19. The COVID-19 test was negative. Recommendations: - Minimize contact with others until 24 hours after symptoms resolve. Steps to prevent the spread of COVID-19: - Use your judgement on ability to return to work. - Monitor your symptoms. Please call or return to the Emergency Department if you experience worsening shortness of breath, fever, or are feeling worse in any way. - Get rest and stay hydrated. - Call ahead before visiting your doctor. - Cover your cough and sneezes. - Wear a facemask around others if you are sick. - Clean your hands often. - Practice social distancing. Keep 6 feet apart as much as possible. - Avoid sharing household items. - Disinfect high touch surfaces daily, ideally with a product that kills cold and flu viruses. Tobacco: You screened negative for tobacco use upon admission. Alcohol: You screened negative for alcohol use upon admission. Substance Use: You screened negative for substance use upon admission. Is patient in isolation? No Primary Care Provider: ABIGAIL ÁLVAREZ Patient Team : CO-BTW PACT *PARMINDER* Discharge to home in good condition. Reconditioning goals met. Discharge services, e.g. instructions, prescriptions, referrals, documentation, took greater than 30 minutes If you have questions, worsening symptoms or any new symptoms or conditions, call -or- and ask the benzene operator to page resident planer stone for General Medicine/Primary Care The following discharge instructions were discussed with patient/caregiver who voiced understanding and received a copy of this note. Diet: Current inpatient diet: HEALTHY DIET Heart Healthy (no added salt/low cholesterol/low fat) MEDICATIONS: Please see the note CO-PHARMACY DISCHARGE/PATIENT EDUCATION CONSULT NOTE for the list of discharge medications. << PATIENT INSTRUCTIONS/ACTIVITY INSTRUCTIONS (Requires Response) >> ACTIVITY INSTRUCTIONS: Bathing: As tolerated, please keep incision site dry for one week. Driving: Left arm activity restrictions for next three weeks (until 09/21). This includes driving and lifting above shoulder level. Lifting: No more than 10 pounds and the restriction is in place for: 3 weeks (until 09/21). Sexual Activity: Resume as tolerated Walking: Resume normal walking as tolerated Wear nocutrnal left arm sling for one week (until 09/08). Return to Work Date: Aug FOLLOW-UP CARE (Requires response): PRIMARY CARE Asset Protection Agent to f/u in 1-2 day(s) for: by phone to check patient status and review issues Follow up with cardiology EP clinic in one week. Depression: When to Call Your Healthcare Provider Developing new or worsening mental health symptoms, including depression and anxiety symptoms, can happen after a medical event or new medical diagnosis. Call your healthcare provider if you develop any of the following: * Feeling sad, hopeless, or empty. Others might have noticed that you appear sad or tearful. * Losing interest in or not get pleasure from most daily activities, even for things you used to enjoy. * Losing or gain weight because of changes in how hungry you feel. * Sleeping too much or not enough. * Feeling restless, keyed up or on edge, or feeling like moving takes great effort. * Feeling tired all the time. * Feeling unworthy, guilty or like a burden on others, or worrying that others may not like you. * Finding it hard to focus, remember things, or make decisions. * Have thoughts of , or thoughts about hurting yourself. Who to Call Your [place] Primary Care Team Your local [place] Behavioral Health Team The [facility] Crisis Line: Dial 988 then press 1 or Text [phone] Do You Have Thoughts About Suicide? If you or a loved one has thoughts about or suicide, call 911 or the Veterans Crisis Line-Dial 988 then press 1,or Text [phone] or use other emergency services. Or you can chat with a trained counselor online at [email or web address].[employer] .[email or web address]. /es/ LEEROY HUGHES RESIDENT PHYSICIAN Signed: 09/01/2024 12:44 /es/ CHANDU REYES PHYSICIAN Cosigned: 09/02/2024 13:50 LEEROY HUGHES [facility] Sep 01, 2024 10:29 AM STOPPER MAKER HELPER NOTE: LOCAL TITLE: CO-STOPPER MAKER HELPER NOTE (D) STANDARD TITLE: STOPPER MAKER HELPER NOTE DATE OF NOTE: SEP 01, 2024@10:29 ENTRY DATE: SEP 01, 2024@10:29:31 AUTHOR: CAROL SARABIA EXP COSIGNER: KADEEM VAZQUEZ URGENCY: STATUS: COMPLETED CO-STOPPER MAKER HELPER NOTE (D) Has ADDENDA CARDIOLOGY FOLLOW UP NOTE ID: ALIYAH COREY 84 MALE Admission Date: Aug Admission Dx: VTACH, CHEST PAIN Admitting Physician: JEROME DOTY SANKET DHIRUBHAI Subjective: Doing well this AM, post SUPERVISOR DETASSELING CREW-D placement yesterday Medications: Active Inpatient Medications (excluding Supplies): Active Inpatient Medications Status 1) ACETAMINOPHEN TAB 650MG PO Q6H PRN ACTIVE 2) AMIODARONE TAB 400MG PO QDAY ACTIVE 3) CEPHALEXIN CAP,ORAL 500MG PO BID times 5 days ACTIVE 4) CHOLECALCIFEROL (LOW DOSE VIT D3) TAB 25MCG PO QAM ACTIVE 5) CYANOCOBALAMIN TAB 1000MCG PO QAM ACTIVE 6) DEXTROSE 50%/WATER INJ,SOLN 50ML (25GM) IVP Q15MIN ACTIVE PRN Instructions too long. See order details for full text. 7) DEXTROSE LIQUID,ORAL 15GM PO Q15MIN PRN Instructions ACTIVE too long. See order details for full text. 8) GLUCAGON EMERGENCY INJ 1MG/1VIAL SQ Q15MIN PRN ACTIVE Instructions too long. See order details for full text. 9) ISOSORBIDE MONONITRATE TAB,SA 120MG PO QDAY ACTIVE 10) LISINOPRIL TAB 10MG PO QAM ACTIVE 11) METOPROLOL SUCCINATE TAB,SA 25MG PO QDAY ACTIVE 12) NITROGLYCERIN TAB,SUBLINGUAL 0.4MG SL Q5MIN PRN ACTIVE NEEDED FOR CHEST PAIN. MAY REPEAT DOSE TWICE 13) OMEPRAZOLE CAP,EC 20MG PO QAM AC ACTIVE 14) RANOLAZINE TAB,SA 1000MG PO BID ACTIVE 15) ROSUVASTATIN TAB 40MG PO QHS ACTIVE 16) SODIUM CHLORIDE 0.9% PF SYR INJ 10mL IVP Q8H SALINE ACTIVE LOCK FLUSH 17) SPIRONOLACTONE TAB 25MG PO QAM ACTIVE 18) TAMSULOSIN CAP,ORAL 0.4MG PO QDAY ACTIVE Compared newly ordered medications and medication changes to active medications and non-VA medications, and then reviewed medications with patient and/or caregiver. All discrepancies noted and reconciled. Patients, or caregivers, was provided with reconciled medications list and advised to provide to all non VA providers. Potential adverse reactions of new medications were discussed with the patient. Objective: Date Vital Measurement Qualifiers 09/01/2024 08:55 Temp F (C) 97.2 (36.2) Pulse 60 Respir 22 BP 127/63 Pain 0 POx (L/Min)(%) 96 Room Air 09/01/2024 06:50 Wt lbs (kg)[BMI] 193.79 (87.90)[30*]Standing Weight ROS: All systems reviewed, negative unless otherwise specified above. PHYSICAL EXAM: Date Vital Measurement Qualifiers 09/01/2024 08:55 Temp F (C) 97.2 (36.2) Pulse 60 Respir 22 BP 127/63 Pain 0 POx (L/Min)(%) 96 Room Air 09/01/2024 06:50 Wt lbs (kg)[BMI] 193.79 (87.90)[30*]Standing Weight GENERAL: Appears of stated age NECK: No JVD. CVS: Regular rate and rhythm. Normal S1/S2. No murmurs, clicks, gallops or rubs. Pulses 2+. RESPIRATORY: BS CTAB. No accessory muscle use noted. Chest excursion symmetrical. ABDOMEN: S/NT/ND. Bowel sounds normoactive. EXTREMITIES: No C/C/E. Pulses are present and equal in 4 extremities. MSK: No chest wall tenderness. NEURO: Alert and oriented to person, time, place, and circumstance. LABS/DIAGNOSTICS: CHOL: 120 (08/22/23 09:44) HDL: 37 (08/22/23 09:44) LDL-RIAN: 66 (08/22/23 09:44) TGL: 87 (08/22/23 09:44) Lab Results - NONE FOUND Lab Results - NONE FOUND Lab Results - NONE FOUND 1.0 INR (08/27/2024 06:40) 11.4 Sec (08/27/2024 06:40) 29.8 Sec (08/27/2024 06:40) LAB RESULTS FOR: SEP 01, 2024 GLUCOSE: 109 H UREA NITROGEN: 17 CREATININE: 1.12 SODIUM: 138 POTASSIUM: 4.3 CALCIUM: 9.4 PROTEIN,TOTAL: 7.1 ALBUMIN: 4.3 BILIRUBIN,TOTAL: 1.0 SGOT: 23 SGPT: 9 CL: 108 H CARBONDI: 21 L ALP: 58 M.1 eGFR (CKD-EPI 2020): 66 WBC: 15.00 H RBC: 4.10 HGB: 13.6 HCT: 37.7 L MCV: 92.0 MCH: 33.2 MCHC: 36.1 H RDW: 12.1 PLT: 166 MPV: 10.9 ALTERNATE LYMPHS: 30.0 MONOS, ABSOLUTE: 1.19 H EOSINO, ABSOLUTE: 0.05 BASO, ABSOLUTE: 0.03 GRANULOCYTES, ABSOLUTE: 9.13 H GRANULOCYTE, ALTERNATE %: 61.0 MONOCYTE, ALTERNATE %: 7.9 EOS AUTO: 0.3 BASO AUTO: 0.2 LYMPH ABSOLUTE: 4.50 IMMATURE GRANULOCYTE ABSOLUTE: 0.09 H IMMATURE GRANULOCYTE PERCENT: 0.6 5.4 % (08/22/2023 09:44) ASSESSMENT & PLAN: Seeing this 84 y/o with known H/O as per HPI. Presented to the ER due to chest pain and palpitations post sexual intercourse with his . Noted to be in monomorphic VT which converted with IV amiodarone, normal electrolytes. Known H/O Ischemic Cardiomyopathy with previusly mildy reduced EF to 45-50%. Underwent LHC today without evidence of new lesions. #Monomophic VT s/p SUPERVISOR DETASSELING CREW-D #HFrEF( Now 20-25%) Ischemic Cardiomyopathy #CAD s/p Multiple Stents/ SLURRY BLENDER RPLS #Chronic Stable Angina #HTN #LBBB Plan: - Amiodarone to 400 mg daily - Metoprolol succinate to 25 daily - Crestor 40 mg daily - Continue Spironolactone 25 mg daily - Continue Isosobride Mononitrate 120 mg daily/ Ranolazine 1000 mg bid - Resume ASA 81 mg daily on DC - Discontinue Plavix - 1 week follow in Device clinic post DC with EP PRESS OPERATOR HELPER - General Cardiology follow up - BNP prior to DC - Lasix 20 mg PO prn for weight gain - Abx on DC per EP procedure note - Activity restrictions per EP procedure note Carol Sarabia PGY-IV Cardiovascular Disease Fellow Discussed with attending physician /santiago/ CAROL SARABIA FELLOW-CO Signed: 09/01/2024 10:35 /santiago/ KADEEM VAZQUEZ PHYSICIAN Cosigned: 09/05/2024 19:09 09/03/2024 ADDENDUM STATUS: COMPLETED Please add defibrillator to problems list. /santiago/ PERCY ABDALLA PROGRAM MANAGEMENT PROFESSIONAL Signed: 09/03/2024 10:03 Receipt Acknowledged By: * AWAITING SIGNATURE * CAROL SARABIA TERRENCE ERROL [facility]TH[facility]Y [facility] Sep 01, 2024 08:53 AM NURSING NOTE: LOCAL TITLE: [facility] SKIN INSPECTION/ASSESSMENT STANDARD TITLE: NURSING NOTE DATE OF NOTE: SEP 01, 2024@08:53 ENTRY DATE: SEP 01, 2024@08:53:23 AUTHOR: EMILY DALTON EXP COSIGNER: URGENCY: STATUS: COMPLETED Assessment Type: SKIN REINSPECTION/REASSESSMENT SKIN INSPECTION: Skin Color: Usual for ethnicity Skin Temperature: Warm Skin Moisture: Normal Skin Turgor: Elastic (normal/immediate) Boris Skin Assessment: The patient's Boris Scale Score is 23. The patient is considered not at risk for development of pressure ulcers/injuries. Sensory perception -- ability to respond meaningfully to pressure-related discomfort No impairment. Moisture -- degree to which skin is exposed to moisture Rarely moist. Activity -- ability to change and control body position Walks frequently. Mobility -- ability to change and control body position No limitation. Nutrition -- usual food intake patterns Excellent. Friction and shear No apparent problem. INTERVENTIONS: No change in previous interventions as listed below Pressure Ulcer-Education 08/31/2024 Educate Importance Of Changing Position Pressure Ulcer-Friction/Shear 08/31/2024 Head of Bed Below 30 Degrees When Not Eating When Head of Bed Elevated Raise Knee Pressure Ulcer-Moisture 08/31/2024 Maintain Clean Dry Skin No More Than 1 Linen Layer Pressure Ulcer-Nutrition 08/31/2024 Encourage Eating And Assist With Meals Monitor Fluid/Food Intake Provide/Encourage Oral Care As Needed Pressure Ulcer-Pressure Reducing 08/31/2024 Frequent Position Changes Turn And Reposition Q2H Wheelchair Cushion Pressure Ulcer-Remobilize 08/31/2024 Encourage Activity As Tolerated Limit Sitting OOB To 2 Hr Periods Rom Exercises Vaaes Pressure Injury Interventions 08/30/2024 Vaaes Pressure Injury Int Not Needed RISK FACTORS THAT INCREASE RISK FOR DEVELOPING PRESSURE INJURIES: The patient/resident has the following: Age over 75 Device(s): (nasogastric tubes, oxygen tubing, urinary catheters, cell phone etc.) Comment: tele, pulse ox, bp cuff, piv SKIN INTEGRITY: -left chest incision; glued; TERRELL /es/ EMILY DALTON REGISTERED NURSE Signed: 09/01/2024 08:55 [address]ILY DALTON [place] [facility] Sep 01, 2024 06:45 AM NURSING NOTE: LOCAL TITLE: CO-NURSING PROGRESS NOTE ICU/PCU STANDARD TITLE: NURSING NOTE DATE OF NOTE: SEP 01, 2024@06:45 ENTRY DATE: SEP 01, 2024@06:45:11 AUTHOR: RAHAT GASCA EXP COSIGNER: URGENCY: STATUS: COMPLETED Report received and assumed care of patient at 19:30 he was resting in bed with complaints of pain in the subclavian area. Pain medicine was administered and he was able to rest most of the night. He had complaints of pain again around the 03:00 hour and pain medications was administered. He said the Tylenol help with his pain. He had no complaints of chest pain or discomfort. Two view chest x-ray was complete. No major complications or event during the tour. Please see BCMA, CPRS and ICCA for more information. /santiago/ RAHAT GASCA REGISTERED NURSE Signed: 09/01/2024 06:49 RAHAT GASCA [facility] Aug 31, 2024 09:27 PM NURSING NOTE: LOCAL TITLE: [facility] SKIN INSPECTION/ASSESSMENT STANDARD TITLE: NURSING NOTE DATE OF NOTE: AUG 31, 2024@21:27 ENTRY DATE: AUG 31, 2024@21:27:49 AUTHOR: RAHAT GASCA EXP COSIGNER: URGENCY: STATUS: COMPLETED Assessment Type: SKIN REINSPECTION/REASSESSMENT SKIN INSPECTION: Skin Color: Usual for ethnicity Skin Temperature: Warm Skin Moisture: Normal Skin Turgor: Elastic (normal/immediate) Boris Skin Assessment: The patient's Boris Scale Score is 21. The patient is considered not at risk for development of pressure ulcers/injuries. Sensory perception -- ability to respond meaningfully to pressure-related discomfort Slightly limited. Moisture -- degree to which skin is exposed to moisture Rarely moist. Activity -- ability to change and control body position Walks frequently. Mobility -- ability to change and control body position Slightly limited. Nutrition -- usual food intake patterns Excellent. Friction and shear No apparent problem. INTERVENTIONS: No change in previous interventions as listed below Pressure Ulcer-Education 08/31/2024 Educate Importance Of Changing Position Pressure Ulcer-Friction/Shear 08/31/2024 Head of Bed Below 30 Degrees When Not Eating When Head of Bed Elevated Raise Knee Pressure Ulcer-Moisture 08/31/2024 Maintain Clean Dry Skin No More Than 1 Linen Layer Pressure Ulcer-Nutrition 08/31/2024 Encourage Eating And Assist With Meals Monitor Fluid/Food Intake Provide/Encourage Oral Care As Needed Pressure Ulcer-Pressure Reducing 08/31/2024 Frequent Position Changes Turn And Reposition Q2H Wheelchair Cushion Pressure Ulcer-Remobilize 08/31/2024 Encourage Activity As Tolerated Limit Sitting OOB To 2 Hr Periods Rom Exercises Vaaes Pressure Injury Interventions 08/30/2024 Vaaes Pressure Injury Int Not Needed RISK FACTORS THAT INCREASE RISK FOR DEVELOPING PRESSURE INJURIES: The patient/resident has the following: Age over 75 Device(s): (nasogastric tubes, oxygen tubing, urinary catheters, cell phone etc.) Comment: call light, phone, ekc pulse ox and bp tubing, PIV x2 SKIN INTEGRITY: Intact Incision and Flaps: Incision 1: Location: Left subclavian Status: Edges well approximated Closure: Sutures Stabilization: None Surrounding tissue: Intact Wound drainage none. Dressing type: Open to air /es/ RAHAT GASCA REGISTERED NURSE Signed: 08/31/2024 21:34 RAHAT GASCA [place] [facility] Aug 31, 2024 05:00 PM ELECTROPHYSIOLOGY NOTE: LOCAL TITLE: CO-CARDIO EP PROCEDURE NOTE STANDARD TITLE: ELECTROPHYSIOLOGY NOTE DATE OF NOTE: AUG 31, 2024@17:00 ENTRY DATE: AUG 31, 2024@17:00:34 AUTHOR: AYDEN ALMANZA MD EXP COSIGNER: URGENCY: STATUS: COMPLETED CO-CARDIO EP PROCEDURE NOTE Has ADDENDA [facility] ([facility]) Program for Clinical Assessment, Reporting, and Tracking CARDIAC IMPLANTABLE ELECTRONIC DEVICE REPORT Patient: ALIYAH COREY SSN: [id number] : 1940 AGE: 84 Procedure Date: 08/31/2024 Procedure Status: Urgent inpatient procedure Attending: AYDEN ALMANZA MD Assisting: WILL COWART PROCEDURE INDICATIONS PROCEDURES PERFORMED New Implants: SUPERVISOR DETASSELING CREW-D New Leads: Two new leads (one PM + one ICD) New LV lead Add-on Procedures: Moderate sedation TIME-OUT A time-out was performed addressing all safety requirements relevant to the procedure. Type of procedure, site, and patient ID were verified with the patient. The attending has assessed or re-assessed the patient and there are no changes to the pre-procedure assessment. PROCEDURE DETAILS INDICATION FOR PROCEDURE: 84 year old mitral with a past medical history of HTN, HLD, LBBB, CAD (prior to PCI to mLAD, RCA x3, PDA, diag 1 with SLURRY BLENDER of RPLS), ICM, heart failure with reduced ejection fraction (ejection fraction varying from 35 to 45% over the last few years) ILEANA, mild To moderate AR, melanoma, BPH. He was hospitalized with rapid monomorphic ventricular tachycardia cycle length 300 ms with suspected basal anterolateral exit, symptomatic with chest pain, resolved with IV amiodarone. Repeat cardiac catheterization did not reveal any new coronary abnormalities. Inpatient echocardiogram showed LVEF in the 35% range. He has chronic left bundle branch block with QRS duration greater than 160 ms. VT has not recurred post amiodarone loading. Following detailed discussion, we decided upon placement of a biventricular ICD for secondary prevention of sudden cardiac as well as cardiac resynchronization. He has baseline NYHA II heart failure. The procedure was discussed in detail, including possible risks, mainly but not limited to, major bleeding/cardiac perforation/pneumothorax/infec tion/stroke/myocardial infarction/. Informed consent was obtained and documented prior to the procedure. PROCEDURE SET UP: The patient was brought to the EP lab in the postabsorptive nonsedated state. IV cefazolin 2 g was administered prior to the skin incision. A time-out was performed at the beginning of the procedure, and the patient was identified correctly. The patient was monitored with continuous EKG, blood pressure monitor, and pulse oximeter throughout the procedure. The procedure was performed under conscious sedation by the terrazzo laborer nurse, details of which can be found in the nursing notes. One set of external cardioverter-defibrillator pads were attached to the patient's chest and connected to an external cardioverter-defibrillator. The left chest was prepped and draped in the usual manner. PROCEDURE DETAILS: Following local anesthesia with lidocaine, the left axillary/subclavian vein was entered 3 times with micropuncture needle and central complex needle under vascular ultrasound guidance. A 1.5 inch incision was made and the wires were tunneled into the pocket. One of the access sites was double wired. A Medtronic 507 6/52 cm lead was placed at the right ventricular apex for backup pacing through a 7 [place] sheath. At a later stage of of the procedure, this lead was withdrawn to the right atrium and placed in the right atrial appendage in the usual manner. The medialmost axis was double wired through a 7 [place] sheath. A Medtronic C304 his catheter was advanced over a 0.035 inch J-tipped long guidewire. The apex was tagged. The catheter was placed in the approximate area of the anteroseptal tricuspid annulus. I was unable to localize the hiss deflection owing to excessive noise on the recording system. A Medtronic 383 0/69 cm lead was advanced through this catheter and tested at multiple sites along the septum for left bundle branch area capture. Despite testing around 20 different sites in various orientations and distance from the anteroseptal annulus, I was unable to advance the lead sufficiently through the septum to capture the left bundle or the left side of the interventricular septum. At this stage, I decided to switch to placement of a standard coronary sinus lead. A Medtronic multipurpose catheter was advanced over a long guidewire to cannulate the coronary sinus. A balloon venogram was performed, revealing medium sized high lateral branche. A Runthrough 0.015 angioplasty wire was used to advance a straight quadripolar tined LV lead to the distal aspect of this branch. Local lead parameters including pacing/sensing/impedance were confirmed to be satisfactory. Lack of diaphragmatic capture was confirmed. The MP catheter was removed using the MDT slitter. A 9-[place] safe sheath was advanced over the remaining guidewire. The guidewire and dilator were removed. A DF4 single coil defibrillator lead was advanced to the right ventricular septal apex confirmed by biplane fluoroscopy, with extension of the active fixation mechanism confirmed by fluoroscopy, adequate pacing/sensing/impedance parameters, and lack of phrenic nerve capture per high voltage pacing. All leads were secured to the underlying pectoralis muscle with three 0- Ethibond sutures. A pocket was created to accommodate the ICD generator. The pocket was irrigated with antibiotic irrigant solution. All lead pacing and sensing were again confirmed to be adequate. Gentle tug was applied on each lead to confirm adequate suture sleeve securing to the pectoralis muscle. The SUPERVISOR DETASSELING CREW-D generator was brought into the field. Each lead pin was advanced into the respective port, taking care to advance the lead pin beyond the set screw and properly deployed the set screw, confirmed by tugging on the lead. The leads were wrapped under the pacemaker generator which was placed in the pocket. The pocket was closed in 3 layers using 2-0 Vicryl running muscular, 3-0 Vicryl running subcutaneous layer, and 4-0 Vicryl subsuticular running suture, followed by 2 layers of dermabond. DEVICE DETAILS Medtronic MRI compatible Biventricular ICD, model COBALT XT HF QUAD IS4 DF4 [id number], serial number [id number]. The right atrial lead is Medtronic 5076/ 52, serial number [id number], placed in the right atrial appendage, P waves 4.0 mV, pacing impedance 456 ohms, pacing threshold 0.75 volts at 0.4 milliseconds. The right ventricular lead is a Medtronic 8766M66 single coil serial number [id number], placed at the septal RV apex, R-waves 7.9 mV, pacing impedance 437 ohms, HV impedance 76 ohms, pacing threshold 0.75 V at 0.4 milliseconds. The LV lead is MDT 4298/88 SN#[id number] placed in a high lateral branch, impedance 589 ohms, threshold 1.5 V at 0.4 ms in LV4-LV2 configuration. Various LV pacing configurations were tested at different LV-RV delays. The narrowest QRS duration was obtained with LV>RV 40 ms with AV delay 130/100 ms. I suspected the patient still had some fusion even at this programmed AV delay. Adaptive BiV pacing QRS was clearly wider. QLV was greater than 110 ms at all poles. The above LV pacing configuration was selected for a combination of longest QLV and acceptable threshold. There was no evidence of phrenic nerve capture. The device was programmed DDDR 60/130. All leads were programmed in bipolar pacing and sensing configuration. VF>214 BPM, 30/40, ATP during charging, 40 J X 6 Fast VT>188 BPM, ATPX4, 40 J X 3 VT greater than 167 bpm, ATP x 5, 40 J x 5 VT monitor>140 BPM IN-LAB MEDICATIONS Summary Data: Total Contrast: 20 mL Total Fluoroscopy Time: 24 min Radiation DAP: 73048 mGy-cm2 Air Kerma: 101 mGy Total Fluids: 100 mL Estimated Blood Loss: 60 mL Specimen removed: No PERIPROCEDURAL COMPLICATIONS No Major Adverse Events or Complications The attending was present throughout the procedure. PROCEDURE SUMMARY Successful placement of a biventricular ICD via left axillary vein. RECOMMENDATIONS 1. Cephalexin 500 mg twice daily for 5 days 2. Resume Plavix after 2 days if necessary for CAD management. Otherwise just continue. 3. Continue other medications unchanged. 4. Titrate metoprolol to maximal tolerable dosage. 5. Continue oral amiodarone 6. Left arm sling for 24 hours followed by nocturnal sling for 1 week 7. Keep incision site dry for 1 week 8. Left arm activity restrictions for the next 3 weeks including lifting greater than 10 pounds/driving/lifting above shoulder level 9. Follow-up in EP PRESS OPERATOR HELPER clinic in 1 week for site check. Plan recheck QRS morphology and various pacing configurations at clinic check. PROCEDURE CODING Coding Procedure [id number] SUPERVISOR DETASSELING CREW-D 41154 Two new leads (one PM + one ICD) 49630 New LV lead N/A Moderate sedation [id number] [facility]:[id number] 08/31/2024 /santiago/ AYDEN ALMANZA MD PHYSICIAN Signed: 08/31/2024 17:30 09/02/2024 ADDENDUM STATUS: COMPLETED Patient registered in [facility]. Have requested the add to WebMD for remote monitoring. Patient will be using the [employer]. /es/ MARY ANNE PEÑA REGISTERED NURSE Signed: 09/02/2024 10:17 AYDEN ALMANZA MD [facility] Aug 31, 2024 04:29 PM STOPPER MAKER HELPER NOTE: LOCAL TITLE: CO-STOPPER MAKER HELPER NOTE (D) STANDARD TITLE: STOPPER MAKER HELPER NOTE DATE OF NOTE: AUG 31, 2024@16:29 ENTRY DATE: AUG 31, 2024@16:30:17 AUTHOR: CAROL SARABIA EXP COSIGNER: KADEEM VAZQUEZ URGENCY: STATUS: COMPLETED CARDIOLOGY FOLLOW UP NOTE ID: ALIYAH COREY 84 MALE Admission Date: Aug Admission Dx: VTACH, CHEST PAIN Admitting Physician: JEROME DOTY SANKET DHIRUBHAI Subjective: No events overnight Medications: Active Inpatient Medications (excluding Supplies): Active Inpatient Medications Status 1) AMIODARONE TAB 400MG PO QDAY ACTIVE 2) CEFAZOLIN INJ CEFAZOLIN 2 GM in ISO-OSMOTIC ACTIVE SOLUTION 100 ML INFUSE OVER 60 MINUTES Instructions too long. See order details for full text. IVPB ONCE 3) CHOLECALCIFEROL (LOW DOSE VIT D3) TAB 25MCG PO QAM ACTIVE 4) CYANOCOBALAMIN TAB 1000MCG PO QAM ACTIVE 5) DEXTROSE 50%/WATER INJ,SOLN 50ML (25GM) IVP Q15MIN ACTIVE PRN Instructions too long. See order details for full text. 6) DEXTROSE LIQUID,ORAL 15GM PO Q15MIN PRN Instructions ACTIVE too long. See order details for full text. 7) GLUCAGON EMERGENCY INJ 1MG/1VIAL SQ Q15MIN PRN ACTIVE Instructions too long. See order details for full text. 8) ISOSORBIDE MONONITRATE TAB,SA 120MG PO QDAY ACTIVE 9) LISINOPRIL TAB 10MG PO QAM ACTIVE 10) METOPROLOL SUCCINATE TAB,SA 25MG PO QDAY ACTIVE 11) NITROGLYCERIN TAB,SUBLINGUAL 0.4MG SL Q5MIN PRN ACTIVE NEEDED FOR CHEST PAIN. MAY REPEAT DOSE TWICE 12) OMEPRAZOLE CAP,EC 20MG PO QAM AC ACTIVE 13) RANOLAZINE TAB,SA 1000MG PO BID ACTIVE 14) ROSUVASTATIN TAB 40MG PO QHS ACTIVE 15) SODIUM CHLORIDE 0.9% INJ in 0.9% NACL 1000 ML TKO@1 ACTIVE TKO planer stone to terrazzo laborer IV 16) SODIUM CHLORIDE 0.9% PF SYR INJ 10mL IVP Q8H SALINE ACTIVE LOCK FLUSH 17) SPIRONOLACTONE TAB 25MG PO QAM ACTIVE 18) TAMSULOSIN CAP,ORAL 0.4MG PO QDAY ACTIVE 19) VANCOMYCIN INJ VANCOMYCIN 1000 MG in ISO-OSMOTIC ACTIVE SOLUTION 200 ML INFUSE OVER 60 MINUTES OCOR: To be given in CARDIOVASCULAR TECH/SDS ONLY on Aug@11:00 IVPB ONCE Compared newly ordered medications and medication changes to active medications and non-VA medications, and then reviewed medications with patient and/or caregiver. All discrepancies noted and reconciled. Patients, or caregivers, was provided with reconciled medications list and advised to provide to all non VA providers. Potential adverse reactions of new medications were discussed with the patient. Objective: Date Vital Measurement Qualifiers 08/31/2024 08:51 Temp F (C) 97.3 (36.3) Pulse 55 Respir 13 BP 130/56 Pain 0 POx (L/Min)(%) 97 Room Air 08/31/2024 07:24 Wt lbs (kg)[BMI] 216.71 (98.30)[34*]Standing Weight ROS: All systems reviewed, negative unless otherwise specified above. PHYSICAL EXAM: Date Vital Measurement Qualifiers 08/31/2024 08:51 Temp F (C) 97.3 (36.3) Pulse 55 Respir 13 BP 130/56 Pain 0 POx (L/Min)(%) 97 Room Air 08/31/2024 07:24 Wt lbs (kg)[BMI] 216.71 (98.30)[34*]Standing Weight GENERAL: Appears of stated age NECK: No JVD. CVS: Regular rate and rhythm. Normal S1/S2. No murmurs, clicks, gallops or rubs. Pulses 2+. RESPIRATORY: BS CTAB. No accessory muscle use noted. Chest excursion symmetrical. ABDOMEN: S/NT/ND. Bowel sounds normoactive. EXTREMITIES: No C/C/E. Pulses are present and equal in 4 extremities. MSK: No chest wall tenderness. NEURO: Alert and oriented to person, time, place, and circumstance. LABS/DIAGNOSTICS: CHOL: 120 (08/22/23 09:44) HDL: 37 (08/22/23 09:44) LDL-RIAN: 66 (08/22/23 09:44) TGL: 87 (08/22/23 09:44) Lab Results - NONE FOUND Lab Results - NONE FOUND Lab Results - NONE FOUND 1.0 INR (08/27/2024 06:40) 11.4 Sec (08/27/2024 06:40) 29.8 Sec (08/27/2024 06:40) LAB RESULTS FOR: AUG 31, 2024 WBC: 9.50 RBC: 4.12 HGB: 14.0 HCT: 38.2 MCV: 92.7 MCH: 34.0 MCHC: 36.6 H RDW: 12.4 PLT: 158 MPV: 10.9 ALTERNATE LYMPHS: 30.8 MONOS, ABSOLUTE: 0.68 EOSINO, ABSOLUTE: 0.06 BASO, ABSOLUTE: 0.04 GRANULOCYTES, ABSOLUTE: 5.73 GRANULOCYTE, ALTERNATE %: 60.3 MONOCYTE, ALTERNATE %: 7.2 EOS AUTO: 0.6 BASO AUTO: 0.4 LYMPH ABSOLUTE: 2.93 IMMATURE GRANULOCYTE ABSOLUTE: 0.07 H IMMATURE GRANULOCYTE PERCENT: 0.7 GLUCOSE: 93 UREA NITROGEN: 18 CREATININE: 1.04 SODIUM: 140 POTASSIUM: 4.5 CALCIUM: 9.2 PROTEIN,TOTAL: 7.0 ALBUMIN: 4.1 BILIRUBIN,TOTAL: 0.7 SGOT: 12 SGPT: 8 CL: 108 H CARBONDI: 24 ALP: 56 M.2 eGFR (CKD-EPI 2020): 72 ANTI-Xa (CO): <0.04 5.4 % (08/22/2023 09:44) ASSESSMENT & PLAN: Seeing this 84 y/o with known H/O as per HPI. Presented to the ER due to chest pain and palpitations post sexual intercourse with his . Noted to be in monomorphic VT which converted with IV amiodarone, normal electrolytes. Known H/O Ischemic Cardiomyopathy with previusly mildy reduced EF to 45-50%. Underwent LHC today without evidence of new lesions. #Monomophic VT #HFrEF( Now 20-25%) Ischemic Cardiomyopathy #CAD s/p Multiple Stents/ SLURRY BLENDER RPLS #Chronic Stable Angina #HTN #LBBB Plan: - ICD placement today - Amiodarone to 400 mg daily - Metoprolol succinate to 25 daily - Crestor 40 mg daily - Continue Spironolactone 25 mg daily - Continue Isosobride Mononitrate 120 mg daily/ Ranolazine 1000 mg bid - DC Plavix, no need for DAPT. Continue ASA 81 mg daily Carol Sarabia PGY-IV Cardiovascular Disease Fellow Discussed with attending physician /santiago/ CAROL SARABIA FELLOW-CO Signed: 08/31/2024 16:34 /santiago/ KADEEMSEBASTIAN VAZQUEZ PHYSICIAN Cosigned: 09/05/2024 19:09 CAROL SARABIA [facility] Aug 31, 2024 01:16 PM NURSING NOTE: LOCAL TITLE: [facility] SKIN INSPECTION/ASSESSMENT STANDARD TITLE: NURSING NOTE DATE OF NOTE: AUG 31, 2024@13:16 ENTRY DATE: AUG 31, 2024@13:16:10 AUTHOR: EMILY DALTON EXP COSIGNER: URGENCY: STATUS: COMPLETED Assessment Type: SKIN REINSPECTION/REASSESSMENT SKIN INSPECTION: Skin Color: Usual for ethnicity Skin Temperature: Warm Skin Moisture: Normal Skin Turgor: Elastic (normal/immediate) Boris Skin Assessment: The patient's Boris Scale Score is 21. The patient is considered not at risk for development of pressure ulcers/injuries. Sensory perception -- ability to respond meaningfully to pressure-related discomfort No impairment. Moisture -- degree to which skin is exposed to moisture Rarely moist. Activity -- ability to change and control body position Walks occasionally. Mobility -- ability to change and control body position No limitation. Nutrition -- usual food intake patterns Adequate. Friction and shear No apparent problem. INTERVENTIONS: New or changed pressure ulcer/injury interventions or medical condition. Education: Teach patient/caregiver importance of changing position frequently for pressure ulcer/injury prevention. Pressure-Redistribution measures: Encourage small, frequent position changes Turn and reposition every two hours while in bed Use of pressure redistribution chair/wheelchair cushion/surface Use pillows (or other pressure relieving devices) to separate pressure areas Maximize mobilization: Encourage activity as tolerated Limit sitting out of bed to less than two hours at a time Perform range of motion exercises when turning/repositioning Manage moisture: Maintain clean and dry skin No more than one linen layer below the patient/resident Manage nutrition: Encourage eating and assist with meals Monitor fluid/food intake Provide or encourage oral care prn Reduce friction and shear: Keep head of bed at or below 30 degrees when not eating Raise the knee when elevating head of bed RISK FACTORS THAT INCREASE RISK FOR DEVELOPING PRESSURE INJURIES: The patient/resident has the following: Age over 75 Device(s): (nasogastric tubes, oxygen tubing, urinary catheters, cell phone etc.) Comment: tele, pulse ox, bp cuff, piv SKIN INTEGRITY: Intact /es/ EMILY DALTON REGISTERED NURSE Signed: 08/31/2024 13:18 EMILY DALTON [place] [facility] Aug 31, 2024 01:00 PM INTERNAL MEDICINE INPATIENT NOTE: LOCAL TITLE: [facility] GENERAL MEDICINE (INPT) RESIDENT PHYSICIAN NO STANDARD TITLE: INTERNAL MEDICINE INPATIENT NOTE DATE OF NOTE: AUG 31, 2024@13:00 ENTRY DATE: AUG 31, 2024@13:01:16 AUTHOR: LEEROY HUGHES EXP COSIGNER: CHANDU REYES URGENCY: STATUS: COMPLETED PROGRESS NOTE for ALIYAH COREY Feb Patient Room: [address] Admission Date: Aug Admission Dx: VTACH, CHEST PAIN Admitting Physician: JEROME DOTY Subjective: No acute events overnight. Continues to be sinus abhilash and asymptomatic.Blood presures ranging 120-130 systolically. Denies chest pain, palpitations, dizziness, SOB, orthopnea. Feels at his normal. Objective: Vitals: Date Vital Measurement Qualifiers 08/31/2024 08:51 Temp F (C) 97.3 (36.3) Pulse 55 Respir 13 BP 130/56 Pain 0 POx (L/Min)(%) 97 Room Air 08/31/2024 07:24 Wt lbs (kg)[BMI] 216.71 (98.30)[34*]Standing Weight Physical exam: GENERAL: NAD. HEENT: Normocephalic. CV: RRR, s1/s2, no murmurs, rubs, or gallops. RESP: Symmetrical expansion, CTA b/l. ABD: Soft, non-tender, non-distended, BS+. NEURO: AAOx3, no focal deficits. EXT: No clubbing, cyanosis, or edema. PSYCH: Appropriate mood and affect. Active Inpatient Medications (excluding Supplies): Active Inpatient Medications Status 1) AMIODARONE TAB 400MG PO QDAY ACTIVE 2) CEFAZOLIN INJ CEFAZOLIN 2 GM in ISO-OSMOTIC ACTIVE SOLUTION 100 ML INFUSE OVER 60 MINUTES Instructions too long. See order details for full text. IVPB ONCE 3) CHOLECALCIFEROL (LOW DOSE VIT D3) TAB 25MCG PO QAM ACTIVE 4) CYANOCOBALAMIN TAB 1000MCG PO QAM ACTIVE 5) DEXTROSE 50%/WATER INJ,SOLN 50ML (25GM) IVP Q15MIN ACTIVE PRN Instructions too long. See order details for full text. 6) DEXTROSE LIQUID,ORAL 15GM PO Q15MIN PRN Instructions ACTIVE too long. See order details for full text. 7) GLUCAGON EMERGENCY INJ 1MG/1VIAL SQ Q15MIN PRN ACTIVE Instructions too long. See order details for full text. 8) ISOSORBIDE MONONITRATE TAB,SA 120MG PO QDAY ACTIVE 9) LISINOPRIL TAB 10MG PO QAM ACTIVE 10) METOPROLOL SUCCINATE TAB,SA 25MG PO QDAY ACTIVE 11) NITROGLYCERIN TAB,SUBLINGUAL 0.4MG SL Q5MIN PRN ACTIVE NEEDED FOR CHEST PAIN. MAY REPEAT DOSE TWICE 12) OMEPRAZOLE CAP,EC 20MG PO QAM AC ACTIVE 13) RANOLAZINE TAB,SA 1000MG PO BID ACTIVE 14) ROSUVASTATIN TAB 40MG PO QHS ACTIVE 15) SODIUM CHLORIDE 0.9% INJ in 0.9% NACL 1000 ML TKO@1 ACTIVE TKO planer stone to terrazzo laborer IV 16) SODIUM CHLORIDE 0.9% PF SYR INJ 10mL IVP Q8H SALINE ACTIVE LOCK FLUSH 17) SPIRONOLACTONE TAB 25MG PO QAM ACTIVE 18) TAMSULOSIN CAP,ORAL 0.4MG PO QDAY ACTIVE 19) VANCOMYCIN INJ VANCOMYCIN 1000 MG in ISO-OSMOTIC ACTIVE SOLUTION 200 ML INFUSE OVER 60 MINUTES OCOR: To be given in CARDIOVASCULAR TECH/SDS ONLY on Aug@11:00 IVPB ONCE Labs: CBC: ANISO: 1+ (08/27/24 06:40) HCT: 37.0 (08/30/24 04:23) 38.2 (08/31/24 05:45) HGB: 13.4 (08/30/24 04:23) 14.0 (08/31/24 05:45) MCH: 33.6 (08/30/24 04:23) 34.0 (08/31/24 05:45) MCHC: 36.2 (08/30/24 04:23) 36.6 (08/31/24 05:45) MCV: 92.7 (08/30/24 04:23) 92.7 (08/31/24 05:45) MPV: 10.8 (08/30/24 04:23) 10.9 (08/31/24 05:45) NORMOCY: Yes (11/22/86 09:32) PLT: 154 (08/30/24 04:23) 158 (08/31/24 05:45) PLT.E: Adequate (08/27/24 06:40) RBC: 3.99 (08/30/24 04:23) 4.12 (08/31/24 05:45) RDW: 12.3 (08/30/24 04:23) 12.4 (08/31/24 05:45) WBC: 8.80 (08/30/24 04:23) 9.50 (08/31/24 05:45) CMP: ALB: 3.8 (08/30/24 04:23) 4.1 (08/31/24 05:45) ALKPHOS: 52 (08/30/24 04:23) 56 (08/31/24 05:45) ALT: 8 (08/30/24 04:23) 8 (08/31/24 05:45) ANI GAP: 10.0 (11/22/86 09:32) AST: 13 (08/30/24 04:23) 12 (08/31/24 05:45) CA: 8.6 (08/30/24 04:23) 9.2 (08/31/24 05:45) CL : 110 (08/30/24 04:23) 108 (08/31/24 05:45) CO2 : 21 (08/30/24 04:23) 24 (08/31/24 05:45) SUPERVISOR DETASSELING CREW: 1.10 (08/30/24 04:23) 1.04 (08/31/24 05:45) EGFR: 69.7 (07/18/21 05:30) 62.0 (08/20/21 07:46) GLU: 95 (08/30/24 04:23) 93 (08/31/24 05:45) K: 4.4 (08/30/24 04:23) 4.5 (08/31/24 05:45) NA: 138 (08/30/24 04:23) 140 (08/31/24 05:45) TBIL: 0.9 (08/30/24 04:23) 0.7 (08/31/24 05:45) TP: 6.4 (08/30/24 04:23) 7.0 (08/31/24 05:45) UREA: 20 (08/30/24 04:23) 18 (08/31/24 05:45) eGFR(CKD-E67 (08/30/24 04:23) 72 (08/31/24 05:45) Radiology: Exam date: AUG 31, 2024@05:05 Proc: CHEST 1 VIEW IMPRESSION TEXT: No acute findings. READING PHYSICIAN: Aubrie Garcia 08/31/2024 7:27 AM REPORT TEXT: History: AICD placement. Single AP portable view of the chest was obtained. Comparison: 08/27/2024. Findings: Unchanged benign calcified granuloma in the right upper lobe. Lungs are otherwise clear. Heart is normal in size and contour. Pulmonary vessels are normal in size and caliber. Osseous and soft tissues are normal. Exam date: AUG 27, 2024@06:51 Proc: CHEST 1 VIEW IMPRESSION TEXT: Mild cardiomegaly without pulmonary edema. READING PHYSICIAN: Aubrie Garcia 08/27/2024 7:29 AM REPORT TEXT: History: Ventricular tachycardia. Single view of the chest. Comparison: 05/20/2023. Findings: Lungs are clear. Mild cardiomegaly without pulmonary edema. Soft tissues are unremarkable. Atherosclerosis. Osseous structures demonstrate degenerative changes. Assessment and Plan: Aliyah York is an 84 year old male with CAD s/p multiple Stents/ SLURRY BLENDER RPLS, chronic angina, HTN, HLD, ischemic cardiomyopathy (previously mildly reduced EF 45-50%), LBBB, aortic regurgitation, ILEANA, hx of malignant melenoma, BPH. Presented to ED on 08/27 for chest pain and palpitations.Found to be in monomorphic VT which converted with IV amiodarone. Normal electrolytes. Cardiology has followed. Initial troponin on admission negative; however, increased > 1,000 by noon on day of admissoin. Known hx of ischemic cardiomyopathy with EF 45-50%. Repeat TTE this admission with EF 20-25%. S/p LHC on 08/27 without evidence of new lesions. Initiating GDMT as HD allow. Sinus bradycardic in the 40's. Will reduce metoprolol succinate to 25 mg daily and decrease amiodarone, as below. Currently on 08/10, missing SGLT2i. Repeat limited echo 08/30 to assess EF, pending. EP consulted and recommending ICD/SUPERVISOR DETASSELING CREW-D, plan for 08/31. NPO at midnight and holding home ASA 81 mg daily and clopidogrel 75 mg daily. Consider not resuming ASA 81 mg, will discuss with patient. S/p amiodarone gtt (08/27-) and transitioned to oral 10 mg qam + 400 mg bid; since reduced to 400 mg daily due to bradycardia. 24-hour plan: - Initiate GDMT as HD allow. On three of four, missing SGLT2i currently. - Continues to be sinus abhilash and asymptomatic. Continue reduced dosing of metoprolol to 25 mg daily (from bid) and amiodarone 400 mg daily (from 10 mg qam + 400 mg bid). - Repeat TTE 08/30 with improved EF to 30/35%. - EP following. ICD/SUPERVISOR DETASSELING CREW-D to be placed 08/31. Holding home ASA 81 mg daily and clopidogrel 75 mg daily. Consider not resuming ASA 81 mg after procedure. Will discuss with patient. - CXR following pacemaker/AICP placement 08/31, ordered. - Monitor I/O's. Diurese as needed. - AM labs: CBC, CMP, Mg. [Discharge planning] - Will discharge to home likely day after ICD placement, 09/01 or 09/02. #Monomophic VT #HFrEF (Now 30-35%),Ischemic Cardiomyopathy #CAD s/p Multiple Stents/ SLURRY BLENDER RPLS #Chronic Stable Angina #HTN #HLD #LBBB #Sinus bradycardia - S/p amiodarone gtt. Transitioned to po 10 mg qam + 400 mg bid d/t bradycardia. Decreased to 400 mg daily d/t abhilash. - EP following. ICD/SUPERVISOR DETASSELING CREW-D to be placed 08/31. - Initiate GDMT as HD allow: 1) Lisinopril 10 mg daily. 2) Metoprolol succinate 25 mg bid. Reduced to 25 mg daily. 3) Spironolactone 25 mg daily. 4) - SGLT2i. - Diurese pending fluid status, labs, I/O's. - Continue Isosobride Mononitrate 120 mg daily/ Ranolazine 1000 mg bid. - Hold home ASA 81 mg daily for ICD placement. Consider not resuming post procedure. - Hold home clopidogrel 75 mg daily for ICD placement 08/31. - Continue home rosuvastatin 40 mg qhs. #BPH - Continue home tamsulosin 0.4 mg PO daily. #GERD - Continue home omeprazole 20 mg qam ac. #ILEANA #History of malignant melanoma #Vit D deficiency - Continue home cholecalciferol 25 mcg qam. #B12 deficiency - Continue home cyanocobalamin 1,000 mcg qam. Code: FULL. Diet: Heart-healthy. NPO at midnight. ICD to be placed today. DVT ppx: Heparin. Held AM dose. Dispo: Team 2, ICU. Staffed with attending physician Dr. Reyes. /santiago/ LEEROY HUGHES RESIDENT PHYSICIAN Signed: 08/31/2024 13:11 /santiago/ CHANDU REYES PHYSICIAN Cosigned: 09/02/2024 13:22 LEEROY HUGHES [facility] Aug 31, 2024 11:49 AM CONSENT: LOCAL TITLE: CONSENT CLINICAL IMED STANDARD TITLE: CONSENT DATE OF NOTE: AUG 31, 2024@11:49:16 ENTRY DATE: AUG 31, 2024@11:49:20 AUTHOR: FABIO DEAN EXP COSIGNER: URGENCY: STATUS: COMPLETED VistA Imaging - Scanned Document Signature Informed Consent for Heart - SUPERVISOR DETASSELING CREW-D, ICD, Pacemaker - Transvenous Lead Initial Insertion (Initial Insertion of Pacemaker Transvenous Lead) 1. Anatomical Location: left chest 2. Informed consent was obtained at 11:46 AM on 08/31/24. The full consent document can be accessed through [employer]. 3. Patient name: ALIYAH COREY 4. The patient HAS decision-making capacity. 5. Surrogate (if applicable): 6. Reason for the treatment (diagnosis, condition, or indication): Abnormal heart rate or rhythm. 7. Treatment/procedure: This procedure involves placement of leads through a blood vessel to your heart. A catheter (long, thin, flexible tube) will be used to place the wires. It will be inserted through your skin into a blood vessel in your leg (groin area), arm, or neck. It is then guided to the heart with special x-rays called fluoroscopy. You may be given medicine to help you relax. Your provider will put an IV (small plastic tube) into a vein, usually in your arm. The IV will be used to give you fluids or medicines during the procedure. Your provider will also place small stickers on your skin. These are called electrodes. Your provider attaches these electrodes to a recording machine. This machine is called an electrocardiogram (ECG). This allows the provider to monitor your heart during the procedure. Your provider will shave and clean the site where your doctor will insert the catheter. A sterile drape will be used to keep the site clean. Your doctor will inject a local anesthetic to numb the area. Your doctor will then insert a needle through your skin. If necessary, your doctor may make a small incision through your skin to access the blood vessel. Your doctor will insert a hollow tube (introducer) over the needle into the blood vessel. Your doctor will then insert a guide wire or catheter through the needle or introducer. Your doctor will use fluoroscopy (live X-ray) to see and direct the catheter(s) to appropriate positions. Your doctor will insert the lead wires through the catheter and advance them into the heart. Once the lead wires are inside the heart, they will be tested to verify proper location and function. There may be one, two or three lead wires inserted, depending on the device your doctor has chosen for your condition. 8. Moderate sedation will be used. Medications will be administered to decrease anxiety and discomfort during the treatment/procedure. These medications will be administered by a qualified practitioner. Patient response to some of these medications varies. Patients are expected to remain aware and responsive during the treatment or procedure. Minor risks of moderate sedation include temporary amnesia or forgetfulness and drowsiness. Moderate sedation can interfere with your ability to drive, operate machinery, or make important decisions for up to 24 hours. Medications used for moderate sedation can cause allergic reactions, respiratory depression (this is when your breathing slows down and may stop), low blood pressure, and a slow or irregular heart beat. In rare instances these complications can cause . Tell your health care team if you do not want to receive moderate sedation. 9. Consent to Blood Products (if applicable): I CONSENT to the use of blood products during this treatment/procedure if they are needed. I understand that the benefit of blood products is that they may improve my overall condition or save my life. I understand that my consent for use of blood products is valid while I recover from the treatment/procedure. My provider will determine when this recovery period ends. If this consent form expires, my treatment plan changes, or if blood products are needed for a reason that is unrelated to this treatment/procedure, I will be asked again for my consent for use of blood products. I understand that common risks of using blood products include (but are not limited to) infection or irritation where the needle is placed, fever, chills, and skin rashes. Other rare but more serious complications may occur such as allergic reactions, heart failure due to fluid overload, acute pulmonary edema (fluid leaking into the lungs), shock, or . I also understand that transfusions of blood or blood products involve a small risk of transmission of diseases such as Hepatitis B (1 in 137,000), Hepatitis C (1 in 1,000,000), and HIV/AIDS (1 in 1,900,000). There is also a small risk of bacterial infection when blood platelets are transfused. Alternatives to blood or blood products may be available if my health, time, and procedure permit. These alternatives may include auto-donation (using my own previously donated blood) and intra-operative salvage (my own blood collected during surgery). In addition, medications may be used to reduce the need for blood products. 10. Practitioner obtaining consent: Will Cowart 11. Supervising practitioner: Ayden Almanza MD 12. Practitioner(s) performing or supervising treatment/procedure (if not listed above): 13. Witness Name(s): 14. Comments: SCANNED DOCUMENT SIGNATURE NOT REQUIRED Electronically Filed: 08/31/2024 by: FABIO ALVA [facility] Aug 31, 2024 12:26 AM NURSING NOTE: LOCAL TITLE: CO-NURSING PROGRESS NOTE ICU/PCU STANDARD TITLE: NURSING NOTE DATE OF NOTE: AUG 31, 2024@00:26 ENTRY DATE: AUG 31, 2024@00:26:31 AUTHOR: RAHAT GASCA EXP COSIGNER: URGENCY: STATUS: COMPLETED Report received and assumed care of patient at 19:30 he was resting in bed with no complaints of pain or discomfort. He mentioned he was tired and was ready for bed and his procedure tomorrow so he can get to the comfort of his home. At midnight he became NPO. CHG bath was given the morning of 08/31/24, leads were not places in subclavian area but were replaced. Morning labs were completed and blood bank band was placed on patient. phlebotomist lab assistant pre-procedure check list was started and handed off to day shift to complete vitals and morning medications. Metoprolol and amiodarone were both held during night med pass. During nursing handoff I instructed to hold aspirin and Plavix for morning meds. He is now resting in bed before his procedure. His Gifty may arrive at bedside before leaving the unit. No other major issue of concerns during the tour. Please see BCMA, CPRS and ICCA for more information. /rick GASCA REGISTERED NURSE Signed: 08/31/2024 07:29 RAHAT GASCA [facility] Aug 31, 2024 12:22 AM NURSING NOTE: LOCAL TITLE: [facility] SKIN INSPECTION/ASSESSMENT STANDARD TITLE: NURSING NOTE DATE OF NOTE: AUG 31, 2024@00:22 ENTRY DATE: AUG 31, 2024@00:22:33 AUTHOR: RAHAT GASCA COSIGNER: URGENCY: STATUS: COMPLETED Assessment Type: SKIN REINSPECTION/REASSESSMENT SKIN INSPECTION: Skin Color: Usual for ethnicity Skin Temperature: Warm Skin Moisture: Normal Skin Turgor: Elastic (normal/immediate) Boris Skin Assessment: The patient's Boris Scale Score is 23. The patient is considered not at risk for development of pressure ulcers/injuries. Sensory perception -- ability to respond meaningfully to pressure-related discomfort No impairment. Moisture -- degree to which skin is exposed to moisture Rarely moist. Activity -- ability to change and control body position Walks frequently. Mobility -- ability to change and control body position No limitation. Nutrition -- usual food intake patterns Excellent. Friction and shear No apparent problem. INTERVENTIONS: No change in previous interventions as listed below Vaaes Pressure Injury Interventions 08/30/2024 Vaaes Pressure Injury Int Not Needed RISK FACTORS THAT INCREASE RISK FOR DEVELOPING PRESSURE INJURIES: The patient/resident has the following: Age over 75 Device(s): (nasogastric tubes, oxygen tubing, urinary catheters, cell phone etc.) Comment: call light, ekg bp and pulse ox tubing, PIV x2 SKIN INTEGRITY: Intact /rick GASCA REGISTERED NURSE Signed: 08/31/2024 00:26 RAHAT GASCA [facility] Aug 30, 2024 05:07 PM STOPPER MAKER HELPER NOTE: LOCAL TITLE: CO-STOPPER MAKER HELPER NOTE (D) STANDARD TITLE: STOPPER MAKER HELPER NOTE DATE OF NOTE: AUG 30, 2024@17:07 ENTRY DATE: AUG 30, 2024@17:07:39 AUTHOR: CAROL SARABIA EXP COSIGNER: KADEEM VAZQUEZ URGENCY: STATUS: COMPLETED CARDIOLOGY FOLLOW UP NOTE ID: ALIYAH COREY 84 MALE Admission Date: Aug Admission Dx: VTACH, CHEST PAIN Admitting Physician: JEROME DOTY SANKET DHIRUBHAI Subjective: No acute events overnight Medications: Active Inpatient Medications (excluding Supplies): Active Inpatient Medications Status 1) AMIODARONE TAB 400MG PO QDAY ACTIVE 2) CEFAZOLIN INJ CEFAZOLIN 2 GM in ISO-OSMOTIC ACTIVE SOLUTION 100 ML INFUSE OVER 60 MINUTES Instructions too long. See order details for full text. IVPB ONCE 3) CHOLECALCIFEROL (LOW DOSE VIT D3) TAB 25MCG PO QAM ACTIVE 4) CYANOCOBALAMIN TAB 1000MCG PO QAM ACTIVE 5) DEXTROSE 50%/WATER INJ,SOLN 50ML (25GM) IVP Q15MIN ACTIVE PRN Instructions too long. See order details for full text. 6) DEXTROSE LIQUID,ORAL 15GM PO Q15MIN PRN Instructions ACTIVE too long. See order details for full text. 7) GLUCAGON EMERGENCY INJ 1MG/1VIAL SQ Q15MIN PRN ACTIVE Instructions too long. See order details for full text. 8) ISOSORBIDE MONONITRATE TAB,SA 120MG PO QDAY ACTIVE 9) LISINOPRIL TAB 10MG PO QAM ACTIVE 10) METOPROLOL SUCCINATE TAB,SA 25MG PO QDAY ACTIVE 11) NITROGLYCERIN TAB,SUBLINGUAL 0.4MG SL Q5MIN PRN ACTIVE NEEDED FOR CHEST PAIN. MAY REPEAT DOSE TWICE 12) OMEPRAZOLE CAP,EC 20MG PO QAM AC ACTIVE 13) RANOLAZINE TAB,SA 1000MG PO BID ACTIVE 14) ROSUVASTATIN TAB 40MG PO QHS ACTIVE 15) SODIUM CHLORIDE 0.9% INJ in 0.9% NACL 1000 ML TKO@1 ACTIVE TKO planer stone to terrazzo laborer IV 16) SODIUM CHLORIDE 0.9% PF SYR INJ 10mL IVP Q8H SALINE ACTIVE LOCK FLUSH 17) SPIRONOLACTONE TAB 25MG PO QAM ACTIVE 18) TAMSULOSIN CAP,ORAL 0.4MG PO QDAY ACTIVE 19) VANCOMYCIN INJ VANCOMYCIN 1000 MG in ISO-OSMOTIC ACTIVE SOLUTION 200 ML INFUSE OVER 60 MINUTES OCOR: To be given in CARDIOVASCULAR TECH/SDS ONLY on Aug@11:00 IVPB ONCE Compared newly ordered medications and medication changes to active medications and non-VA medications, and then reviewed medications with patient and/or caregiver. All discrepancies noted and reconciled. Patients, or caregivers, was provided with reconciled medications list and advised to provide to all non VA providers. Potential adverse reactions of new medications were discussed with the patient. Objective: Date Vital Measurement Qualifiers 08/29/2024 20:00 Temp F (C) 97.5 (36.4) Temporal Pulse 49 Respir 19 BP 106/54 Pain 0 POx (L/Min)(%) 96 ROS: All systems reviewed, negative unless otherwise specified above. PHYSICAL EXAM: Date Vital Measurement Qualifiers 08/29/2024 20:00 Temp F (C) 97.5 (36.4) Temporal Pulse 49 Respir 19 BP 106/54 Pain 0 POx (L/Min)(%) 96 GENERAL: Appears of stated age NECK: No JVD. CVS: Regular rate and rhythm. Normal S1/S2. No murmurs, clicks, gallops or rubs. Pulses 2+. RESPIRATORY: BS CTAB. No accessory muscle use noted. Chest excursion symmetrical. ABDOMEN: S/NT/ND. Bowel sounds normoactive. EXTREMITIES: No C/C/E. Pulses are present and equal in 4 extremities. MSK: No chest wall tenderness. NEURO: Alert and oriented to person, time, place, and circumstance. LABS/DIAGNOSTICS: CHOL: 120 (08/22/23 09:44) HDL: 37 (08/22/23 09:44) LDL-RIAN: 66 (08/22/23 09:44) TGL: 87 (08/22/23 09:44) Lab Results - NONE FOUND Lab Results - NONE FOUND Lab Results - NONE FOUND 1.0 INR (08/27/2024 06:40) 11.4 Sec (08/27/2024 06:40) 29.8 Sec (08/27/2024 06:40) LAB RESULTS FOR: AUG 30, 2024 GLUCOSE: 95 UREA NITROGEN: 20 CREATININE: 1.10 SODIUM: 138 POTASSIUM: 4.4 CALCIUM: 8.6 PROTEIN,TOTAL: 6.4 ALBUMIN: 3.8 BILIRUBIN,TOTAL: 0.9 SGOT: 13 SGPT: 8 CL: 110 H CARBONDI: 21 L ALP: 52 eGFR (CKD-EPI 2020): 67 WBC: 8.80 RBC: 3.99 L HGB: 13.4 HCT: 37.0 L MCV: 92.7 MCH: 33.6 MCHC: 36.2 H RDW: 12.3 PLT: 154 MPV: 10.8 ALTERNATE LYMPHS: 30.9 MONOS, ABSOLUTE: 0.75 EOSINO, ABSOLUTE: 0.08 BASO, ABSOLUTE: 0.03 GRANULOCYTES, ABSOLUTE: 5.17 GRANULOCYTE, ALTERNATE %: 58.5 MONOCYTE, ALTERNATE %: 8.5 EOS AUTO: 0.9 BASO AUTO: 0.3 LYMPH ABSOLUTE: 2.73 IMMATURE GRANULOCYTE ABSOLUTE: 0.08 H IMMATURE GRANULOCYTE PERCENT: 0.9 5.4 % (08/22/2023 09:44) ASSESSMENT & PLAN: Seeing this 84 y/o with known H/O as per HPI. Presented to the ER due to chest pain and palpitations post sexual intercourse with his . Noted to be in monomorphic VT which converted with IV amiodarone, normal electrolytes. Known H/O Ischemic Cardiomyopathy with previusly mildy reduced EF to 45-50%. Underwent LHC today without evidence of new lesions. #Monomophic VT #HFrEF( Now 20-25%) Ischemic Cardiomyopathy #CAD s/p Multiple Stents/ SLURRY BLENDER RPLS #Chronic Stable Angina #HTN #LBBB Plan: - NPo at midnight for ICD placement - Please clean both subclavian areas BID with Chlorohexidine - Saline locks in B/L brachials - Decrease Amiodarone to 400 mg daily - Derease his Metoprolol succinate to 25 daily - Crestor 40 mg daily - Continue Spironolactone 25 mg daily - Continue Isosobride Mononitrate 120 mg daily/ Ranolazine 1000 mg bid - ASA 81 mg daily Carol Sarabia PGY-IV Cardiovascular Disease Fellow Discussed with attending physician /santiago/ CAROL SARABIA FELLOW-CO Signed: 08/30/2024 17:10 /santiago/ KADEEM VAZQUEZ PHYSICIAN Cosigned: 08/31/2024 08:06 CAROL SARABIA [facility] Aug 30, 2024 03:40 PM CONSENT: LOCAL TITLE: CONSENT CLINICAL IMED STANDARD TITLE: CONSENT DATE OF NOTE: AUG 30, 2024@15:40:18 ENTRY DATE: AUG 30, 2024@15:40:26 AUTHOR: FABIO DEAN COSIGNER: URGENCY: STATUS: COMPLETED VistA Imaging - Scanned Document Signature Informed Consent for Heart - ICD Placement (Implantable Cardioverter-Defibrillator (ICD) Placement) 1. Anatomical Location: left chest 2. Informed consent was obtained at 3:37 PM on 08/30/24. The full consent document can be accessed through [facility]. 3. Patient name: ALIYAH COREY 4. The patient HAS decision-making capacity. 5. Surrogate (if applicable): 6. Reason for the treatment (diagnosis, condition, or indication): To reduce the risk of sudden cardiac due to dangerous heart rhythms. 7. Treatment/procedure: This procedure implants a device through a small cut in your upper chest. The device delivers electric pulses to the inside of your heart if necessary. This helps the heart maintain a normal rhythm. The device can shock the heart if necessary. Your doctor will insert one or more wires (leads) through a vein near your collarbone. Your doctor will place the tip of each wire inside your heart. Your doctor may use a series of video x-rays to make sure the wires are in the correct places. This is called fluoroscopy. Your doctor will connect each wire to the device. Your doctor will make a small cut in the skin on your upper chest. The device will be inserted through this cut under your skin. The device and its wires will be under your skin. You will be able to feel the device under your skin. Your doctor will check to make sure the device is working. Your doctor will use stitches or other methods to close your cut. After the procedure is complete, your doctor will need to test the device. This will make sure that the device is set properly. This involves causing a rapid, irregular heartbeat called a ventricular tachyarrhythmia. You will be given electrical shocks by the device and/or an external defibrillator. This will correct the irregular heartbeat. 8. No, neither anesthesia nor moderate sedation will be used in this treatment/procedure. 9. Consent to Blood Products (if applicable): I CONSENT to the use of blood products during this treatment/procedure if they are needed. I understand that the benefit of blood products is that they may improve my overall condition or save my life. I understand that my consent for use of blood products is valid while I recover from the treatment/procedure. My provider will determine when this recovery period ends. If this consent form expires, my treatment plan changes, or if blood products are needed for a reason that is unrelated to this treatment/procedure, I will be asked again for my consent for use of blood products. I understand that common risks of using blood products include (but are not limited to) infection or irritation where the needle is placed, fever, chills, and skin rashes. Other rare but more serious complications may occur such as allergic reactions, heart failure due to fluid overload, acute pulmonary edema (fluid leaking into the lungs), shock, or . I also understand that transfusions of blood or blood products involve a small risk of transmission of diseases such as Hepatitis B (1 in 137,000), Hepatitis C (1 in 1,000,000), and HIV/AIDS (1 in 1,900,000). There is also a small risk of bacterial infection when blood platelets are transfused. Alternatives to blood or blood products may be available if my health, time, and procedure permit. These alternatives may include auto-donation (using my own previously donated blood) and intra-operative salvage (my own blood collected during surgery). In addition, medications may be used to reduce the need for blood products. 10. Practitioner obtaining consent: Will Cowart 11. Supervising practitioner: Ayden Almanza MD 12. Practitioner(s) performing or supervising treatment/procedure (if not listed above): 13. Witness Name(s): 14. Comments: SCANNED DOCUMENT SIGNATURE NOT REQUIRED Electronically Filed: 08/30/2024 by: FABIO ALVA [facility] Aug 30, 2024 12:59 PM INTERNAL MEDICINE INPATIENT NOTE: LOCAL TITLE: CO-PC GENERAL MEDICINE (INPT) RESIDENT PHYSICIAN NO STANDARD TITLE: INTERNAL MEDICINE INPATIENT NOTE DATE OF NOTE: AUG 30, 2024@12:59 ENTRY DATE: AUG 30, 2024@12:59:36 AUTHOR: LEEROY HUGHES EXP COSIGNER: CHANDU REYES URGENCY: STATUS: COMPLETED LOCAL TITLE: CO-PC GENERAL MEDICINE (INPT) RESIDENT PHYSICIAN NO STANDARD TITLE: INTERNAL MEDICINE INPATIENT NOTE DATE OF NOTE: AUG 30, 2024 @0200 ENTRY DATE: AUG 30, 2024 @0200 AUTHOR: LEEROY HUGHES EXP COSIGNER: CHANDU REYES URGENCY: STATUS: UNCOSIGNED NOT YET COSIGNED PROGRESS NOTE for ALIYAH COREY RYLEY Feb Patient Room: [address] Admission Date: Aug Admission Dx: VTACH, CHEST PAIN Admitting Physician: JEROME DOTY Subjective: Aliyah York is an 84 year old male with CAD s/p multiple Stents/ SLURRY BLENDER RPLS, chronic angina, HTN, HLD, ischemic cardiomyopathy (previously mildly reduced EF 45-50%), LBBB, aortic regurgitation, ILEANA, hx of malignant melenoma, BPH. Presented to ED on 08/27 for chest pain and palpitations.Found to be in monomorphic VT which converted with IV amiodarone. Normal electrolytes. Cardiolpogy has followed. Initial troponin on admission negative; however, increased > 1,000 by noon on day of admissoin. Known hx of ischemic cardiomyopathy with EF 45-50%. Repeat TTE this admission with EF 20-25%. S/p LHC on 08/27 without evidence of new lesions. Initiating GDMT as HD allow. EP consulted and recommending ICD/SUPERVISOR DETASSELING CREW-D, planning on 08/31. S/p amiodarone gtt (08/27-) and transitioned to oral 10 mg qam + 400 mg bid due to bradycardia. No acute events overnight. Patient remains asymptomatic and at his baseline. Vitals stable and sinus abhilash in the 40's. Has about 111 cc/hr urine output (low normal). Lytes WNL. Plan for ICD placement tomorrow. Will be NPO at midnight and hold ASA 81 mg daily and clopidogrel 75 mg daily. Objective: Vitals stable. Sinus abhilash in 40-50's. BP 120's/50's. Vitals: Date Vital Measurement Qualifiers 08/29/2024 20:00 Temp F (C) 97.5 (36.4) Temporal Pulse 49 Respir 19 BP 106/54 Pain 0 POx (L/Min)(%) 96 08/29/2024 07:00 Wt lbs (kg)[BMI] 216.27 (98.10)[34*]Standing Weight Physical exam: GENERAL: NAD. HEENT: Normocephalic. CV: RRR, s1/s2, no murmurs, rubs, or gallops. RESP: Symmetrical expansion, CTA b/l. ABD: Soft, non-tender, non-distended, BS+. NEURO: AAOx3, no focal deficits. EXT: No clubbing, cyanosis, or edema. PSYCH: Appropriate mood and affect. Active Inpatient Medications (excluding Supplies): Active Inpatient Medications Status 1) AMIODARONE TAB 400MG PO BID ACTIVE 2) AMLODIPINE TAB 10MG PO QAM ACTIVE 3) ASPIRIN TAB,CHEWABLE 81MG PO QDAY ACTIVE 4) CHOLECALCIFEROL (LOW DOSE VIT D3) TAB 25MCG PO QAM ACTIVE 5) CLOPIDOGREL TAB 75MG PO QDAY ACTIVE 6) CYANOCOBALAMIN TAB 1000MCG PO QAM ACTIVE 7) DEXTROSE 50%/WATER INJ,SOLN 50ML (25GM) IVP Q15MIN ACTIVE PRN Instructions too long. See order details for full text. 8) DEXTROSE LIQUID,ORAL 15GM PO Q15MIN PRN Instructions ACTIVE too long. See order details for full text. 9) FUROSEMIDE INJ,SOLN 20MG/2ML IVP NOW ACTIVE 10) GLUCAGON EMERGENCY INJ 1MG/1VIAL SQ Q15MIN PRN ACTIVE Instructions too long. See order details for full text. 11) HEPARIN INJ,SOLN 5000UNIT/1ML IVP Q8H PRN Anti-Xa ACTIVE <0.1 GIVE 40 units/kg, Anti-Xa 0.10 to 0.20, GIVE 20 units/kg, then per protocol 12) ISOSORBIDE MONONITRATE TAB,SA 120MG PO QDAY ACTIVE 13) LISINOPRIL TAB 10MG PO QAM ACTIVE 14) METOPROLOL SUCCINATE TAB,SA 25MG PO BID ACTIVE 15) NITROGLYCERIN TAB,SUBLINGUAL 0.4MG SL Q5MIN PRN ACTIVE NEEDED FOR CHEST PAIN. MAY REPEAT DOSE TWICE 16) OMEPRAZOLE CAP,EC 20MG PO QAM AC ACTIVE 17) RANOLAZINE TAB,SA 1000MG PO BID ACTIVE 18) ROSUVASTATIN TAB 40MG PO QHS ACTIVE 19) SODIUM CHLORIDE 0.9% PF SYR INJ 10mL IVP Q8H SALINE ACTIVE LOCK FLUSH 20) SPIRONOLACTONE TAB 25MG PO QAM ACTIVE 21) TAMSULOSIN CAP,ORAL 0.4MG PO QDAY ACTIVE Labs: CBC: 08/30: unremarkable. ANISO: 1+ (08/27/24 06:40) HCT: 39.6 (08/28/24 04:50) 39.7 (08/29/24 04:23) HGB: 14.1 (08/28/24 04:50) 14.3 (08/29/24 04:23) MCH: 33.3 (08/28/24 04:50) 33.4 (08/29/24 04:23) MCHC: 35.6 (08/28/24 04:50) 36.0 (08/29/24 04:23) MCV: 93.6 (08/28/24 04:50) 92.8 (08/29/24 04:23) MPV: 10.7 (08/28/24 04:50) 11.1 (08/29/24 04:23) NORMOCY: Yes (11/22/86 09:32) PLT: 174 (08/28/24 04:50) 164 (08/29/24 04:23) PLT.E: Adequate (08/27/24 06:40) RBC: 4.23 (08/28/24 04:50) 4.28 (08/29/24 04:23) RDW: 12.5 (08/28/24 04:50) 12.6 (08/29/24 04:23) WBC: 9.20 (08/28/24 04:50) 8.50 (08/29/24 04:23) CMP: 08/30: Lytes WNL, CMP unremarkable. ALB: 3.7 (08/28/24 04:50) 3.9 (08/29/24 04:23) ALKPHOS: 51 (08/28/24 04:50) 50 (08/29/24 04:23) ALT: 9 (08/28/24 04:50) 8 (08/29/24 04:23) ANI GAP: 10.0 (11/22/86 09:32) AST: 24 (08/28/24 04:50) 17 (08/29/24 04:23) CA: 8.5 (08/28/24 04:50) 8.8 (08/29/24 04:23) CL : 109 (08/28/24 04:50) 107 (08/29/24 04:23) CO2 : 22 (08/28/24 04:50) 23 (08/29/24 04:23) SUPERVISOR DETASSELING CREW: 0.87 (08/28/24 04:50) 1.04 (08/29/24 04:23) EGFR: 69.7 (07/18/21 05:30) 62.0 (08/20/21 07:46) GLU: 92 (08/28/24 04:50) 95 (08/29/24 04:23) K: 4.2 (08/28/24 04:50) 4.7 (08/29/24 04:23) NA: 138 (08/28/24 04:50) 139 (08/29/24 04:23) TBIL: 0.7 (08/28/24 04:50) 0.7 (08/29/24 04:23) TP: 6.5 (08/28/24 04:50) 6.7 (08/29/24 04:23) UREA: 13 (08/28/24 04:50) 15 (08/29/24 04:23) eGFR(CKD-E86 (08/28/24 04:50) 72 (08/29/24 04:23) Radiology: Exam date: AUG 27, 2024@06:51 Proc: CHEST 1 VIEW IMPRESSION TEXT: Mild cardiomegaly without pulmonary edema. READING PHYSICIAN: Aubrie Garcia 08/27/2024 7:29 AM REPORT TEXT: History: Ventricular tachycardia. Single view of the chest. Comparison: 05/20/2023. Findings: Lungs are clear. Mild cardiomegaly without pulmonary edema. Soft tissues are unremarkable. Atherosclerosis. Osseous structures demonstrate degenerative changes. Assessment and Plan: Aliyah York is an 84 year old male with CAD s/p multiple Stents/ SLURRY BLENDER RPLS, chronic angina, HTN, HLD, ischemic cardiomyopathy (previously mildly reduced EF 45-50%), LBBB, aortic regurgitation, ILEANA, hx of malignant melenoma, BPH. Presented to ED on 08/27 for chest pain and palpitations.Found to be in monomorphic VT which converted with IV amiodarone. Normal electrolytes. Cardiology has followed. Initial troponin on admission negative; however, increased > 1,000 by noon on day of admissoin. Known hx of ischemic cardiomyopathy with EF 45-50%. Repeat TTE this admission with EF 20-25%. S/p LHC on 08/27 without evidence of new lesions. Initiating GDMT as HD allow. Sinus bradycardic in the 40's. Will reduce metoprolol succinate to 25 mg daily and decrease amiodarone, as below. Currently on 08/10, missing SGLT2i. Repeat limited echo 08/30 to assess EF, pending. EP consulted and recommending ICD/SUPERVISOR DETASSELING CREW-D, plan for 08/31. NPO at midnight and holding home ASA 81 mg daily and clopidogrel 75 mg daily. Consider not resuming ASA 81 mg, will discuss with patient. S/p amiodarone gtt (08/27-) and transitioned to oral 10 mg qam + 400 mg bid; since reduced to 400 mg daily due to bradycardia. 24-hour plan: - Initiate GDMT as HD allow. On three of , missing SGLT2i currently. - Continues to be sinus abhilash and asymptomatic. Will reduce metoprolol succinate from 25 mg bid to 25 mg daily. Will reduce amiodarone from 10 mg qam + 400 mg bid to only 400 mg daily. - Obtain repeat limited echo 08/30 to assess EF. - EP following. ICD/SUPERVISOR DETASSELING CREW-D to be placed this week. Tentative date 08/31. NPO at midnight and hold home ASA 81 mg daily and clopidogrel 75 mg daily. Consider not resuming ASA 81 mg after procedure. Will discuss with patient. - CXR following pacemaker/AICP placement 08/31. - Monitor I/O's. Today's output 111 cc/hr (low end of normal). Euvolemic on exam. Cr stable. - S/p 20 mg furosemide last night. To give 20 mg in AM. - Follow up on PFT. - AM labs: CBC, CMP, Mg. [Discharge planning] - Will discharge to home likely day after ICD placement, 09/01. #Monomophic VT #HFrEF (Now 20-25%) Ischemic Cardiomyopathy #CAD s/p Multiple Stents/ SLURRY BLENDER RPLS #Chronic Stable Angina #HTN #HLD #LBBB #Sinus bradycardia - S/p amiodarone gtt. Transitioned to po 10 mg qam + 400 mg bid d/t bradycardia. Decreased to 400 mg daily d/t abhilash. - EP following. ICD/SUPERVISOR DETASSELING CREW-D to be placed this week. Tentative date 08/31. - Initiate GDMT as HD allow: 1) Lisinopril 10 mg daily. 2) Metoprolol succinate 25 mg bid. Reduced to 25 mg daily. 3) Spironolactone 25 mg aily. 4) - SGLT2i. - Diurese pending fluid status, labs, I/O's. S/p 20 mg furosemide last night. To give 20 mg in AM. - Continue Isosobride Mononitrate 120 mg daily/ Ranolazine 1000 mg bid. - Hold home ASA 81 mg daily for ICD placement. Consider not resuming post procedure. - Hold home clopidogrel 75 mg daily for procedure. - Continue home rosuvastatin 40 mg qhs. #BPH - Continue home tamsulosin 0.4 mg PO daily. #GERD - Continue home omeprazole 20 mg qam ac. #ILEANA #History of malignant melanoma #Vit D deficiency - Continue home cholecalciferol 25 mcg qam. #B12 deficiency - Continue home cyanocobalamin 1,000 mcg qam. CODE: FULL. Diet: Heart-healthy. NPO at midnight. DVT ppx: Heparin. Hold AM dose. Dispo: Team 2, ICU. Staffed with attending physician Dr. Reyes. Addendum: Please refer to this note. Prior note is the same as this one (accidentally pulbished under incorrect date). Please refer to this note for 08/30. /santiago/ LEEROY HUGHES RESIDENT PHYSICIAN Signed: 08/30/2024 13:06 /santiago/ CHANDU REYES Resident Physician Cosigned: 08/30/2024 14:36 LEEROY HUGHES [facility] Aug 30, 2024 10:28 AM ADDENDUM: LOCAL TITLE: Addendum STANDARD TITLE: ADDENDUM DATE OF NOTE: AUG 30, 2024@10:28:57 ENTRY DATE: AUG 30, 2024@10:28:58 AUTHOR: TERRELL GUO EXP COSIGNER: URGENCY: STATUS: COMPLETED ICD planned for 08/31 ~ 11:[address] Almanza (dual vs SUPERVISOR DETASSELING CREW). phlebotomist lab assistant/[employer] alerted. /santiago/ TERRELL GUO Nurse Practitioner Signed: 08/30/2024 10:40 Receipt Acknowledged By: * AWAITING SIGNATURE * KADEEM VAZQUEZ 08/30/2024 11:48 /santiago/ EULALIA ROQUE PHYSICIAN --- Original Document --- 08/27/24 CO-CARDIO EP CONSULT NOTE: CARDIOLOGY CONSULT NOTE Name: ALIYAH COREY SSN: [id number] Care Team: CO-BTW PACT *PARMINDER* Reason for Consult: VT HISTORY OF PRESENT ILLNESS: Patient is an 84 year old male with a past medical history of HTN, HLD, LBBB, CAD (prior to PCI to mLAD, RCA x3, PDA, diag 1 with SLURRY BLENDER of RPLS), ICM, 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 Patient presented to the ED complaining of chest pain. Patient reports that after having intercourse this morning, he got out of bed at 5 AM and began feeling lightheaded and besgan having arm pain moving to his chest similar to prior chronic anginal pain he has had. Symptoms persisted prompting him to come to the hospital for evaluation. Patient was brought in by his . While in the ED, was noted to be in VT. Amiodarone bolus was initiated and patient converted. Patient reports resolution of his chest pain at that time. Patient denies any known allergy to antibiotics, no prior chest surgery. He currently takes plavix. REVIEW OF SYSTEMS: All systems reviewed and negative except as documented above in HPI. PAST MEDICAL HISTORY: Active Problem Coronary arteriosclerosis History of placement of stent for coronary artery disease Benign essential hypertension Benign prostatic hypertrophy with outflow obstruction H/O: angina pectoris Hyperlipidemia Aortic valve regurgitation Current drinker Hiatal hernia GERD - Gastro-Esophageal Reflux Disease ([facility] [id number]) Constipation Exposure to potentially hazardous substance Difficulty in Walking, not elsewhere classified PAST SURGICAL HISTORY: JUN 12, 1992@10:00 Proc: L&COR JUN 21, 1992@09:00 Proc: L[facility]COR APR 27, 2021@11:37 Proc: WIDE LOCAL EXCISION OF UPPER BACK MELANOMA WITH SNETINAL LYMPH NOSE BIOPSY AUG 18, 2023@13:46 Proc: RIGHT PHACOEMULSIFICATION AND ASPIRATION SEP 26, 2023@08:59 Proc: PHACOEMULSIFICATION & ASPIRATION / LEFT ADMISSIONS: AUG 27, 2024@08:45:50 [place]: ICU PCU MDX: VTACH, CHEST PAIN SOCIAL HISTORY: Marital Status: LIVING ARRANGEMENT: 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 [employer] Period of Service: (Jul to Dec) TOBACCO: ALCOHOL: ILLICIT DRUGS: FAMILY HISTORY: ACTIVE MEDS: Active Outpatient Medications (including Supplies): Active Outpatient Medications Status 1) AMLODIPINE BESYLATE 10MG TAB TAKE ONE TABLET BY MOUTH ACTIVE EVERY MORNING FOR HEART/BLOOD PRESSURE 2) CHOLECALCIF 25MCG (D3-1,000UNIT) TAB TAKE ONE TABLET ACTIVE BY MOUTH EVERY MORNING FOR VITAMIN D DEFICIENCY 3) CLOPIDOGREL BISULFATE 75MG TAB TAKE ONE TABLET BY ACTIVE (S) MOUTH ONCE A DAY TO PREVENT BLOOD CLOTS 4) CYANOCOBALAMIN 1000MCG TAB TAKE ONE TABLET BY MOUTH ACTIVE EVERY MORNING FOR VITAMIN DEFICIENCY 5) ISOSORBIDE MONONITRATE 120MG SA TAB TAKE ONE TABLET ACTIVE BY MOUTH ONCE A DAY TO PREVENT CHEST PAIN TAKE ON EMPTY STOMACH. SWALLOW WHOLE. DO NOT CRUSH OR CHEW. 6) LISINOPRIL 20MG TAB TAKE ONE-HALF TABLET BY MOUTH ACTIVE EVERY MORNING FOR HEART OR HIGH BLOOD PRESSURE 7) METOPROLOL SUCCINATE 50MG SA TAB TAKE ONE-HALF TABLET ACTIVE BY MOUTH EVERY MORNING FOR BLOOD PRESSURE SWALLOW WHOLE, DO NOT CRUSH OR CHEW (TABLETS MAY BE CUT IN HALF). 8) NITROGLYCERIN 0.4MG SL TAB DISSOLVE ONE TABLET UNDER ACTIVE THE TONGUE EVERY MORNING NEEDED FOR CHEST PAIN. IF NO IMPROVEMENT AFTER FIRST DOSE CALL [phone]-. MAY TAKE 2 ADDITIONAL DOSES, 5 MINUTES APART. 9) OMEPRAZOLE 20MG EC CAP TAKE ONE CAPSULE BY MOUTH ACTIVE EVERY MORNING FOR GERD - TAKE WITH A FULL GLASS OF WATER 30 MINUTES BEFORE FOOD OR OTHER DRINKS 10) RANOLAZINE 1000MG SA TAB TAKE ONE TABLET BY MOUTH TWO ACTIVE TIMES A DAY FOR HEART/PREVENT CHEST PAIN, *SWALLOW WHOLE- DO NOT CRUSH,BREAK OR CHEW* 11) ROSUVASTATIN CA 40MG TAB TAKE ONE TABLET BY MOUTH AT ACTIVE BEDTIME FOR CHOLESTEROL. REPORT ANY UNEXPLAINED MUSCLE PAIN OR WEAKNESS TO YOUR DOCTOR. 12) TAMSULOSIN HCL 0.4MG CAP TAKE ONE CAPSULE BY MOUTH ACTIVE ONCE A DAY FOR PROSTATE TAKE WITH FOOD Active Non-VA Medications Status 1) Non-VA ASPIRIN 81MG EC TAB 81MG MOUTH ONCE A DAY ACTIVE 13 Total Medications Active Inpatient Medications (excluding Supplies): Active Inpatient Medications Status 1) AMIODARONE 360MG PREMIX INJ INJ in AMIODARONE 360MG/ ACTIVE D5W 200 ML 1 mg/min x 6hrs @1 continue at 0.5mg/min (*1.8 MG/ML*) IV 2) AMLODIPINE TAB 10MG PO QAM ACTIVE 3) CHOLECALCIFEROL (LOW DOSE VIT D3) TAB 25MCG PO QAM ACTIVE 4) CYANOCOBALAMIN TAB 1000MCG PO QAM ACTIVE 5) DEXTROSE 50%/WATER INJ,SOLN 50ML (25GM) IVP Q15MIN ACTIVE PRN Instructions too long. See order details for full text. 6) DEXTROSE LIQUID,ORAL 15GM PO Q15MIN PRN Instructions ACTIVE too long. See order details for full text. 7) GLUCAGON EMERGENCY INJ 1MG/1VIAL SQ Q15MIN PRN ACTIVE Instructions too long. See order details for full text. 8) HEPARIN 25,000 UNITS / 0.45% NACL INJ,SOLN in HEPARIN ACTIVE 25,000 UNITS/0.45%NACL 500 ML TITRATE@1 Instructions too long. See order details for full text. IV 9) HEPARIN INJ,SOLN 5000UNIT/1ML IVP Q8H PRN Anti-Xa ACTIVE <0.1 GIVE 40 units/kg, Anti-Xa 0.10 to 0.20, GIVE 20 units/kg, then per protocol 10) ISOSORBIDE MONONITRATE TAB,SA 120MG PO QDAY ACTIVE 11) LISINOPRIL TAB 10MG PO QAM ACTIVE 12) METOPROLOL SUCCINATE TAB,SA 25MG PO QAM ACTIVE 13) NITROGLYCERIN TAB,SUBLINGUAL 0.4MG SL Q5MIN PRN ACTIVE NEEDED FOR CHEST PAIN. MAY REPEAT DOSE TWICE 14) OMEPRAZOLE CAP,EC 20MG PO QAM AC ACTIVE 15) RANOLAZINE TAB,SA 1000MG PO BID ACTIVE 16) ROSUVASTATIN TAB 40MG PO QHS ACTIVE 17) SODIUM CHLORIDE 0.9% PF SYR INJ 10mL IVP Q8H SALINE ACTIVE LOCK FLUSH 18) TAMSULOSIN CAP,ORAL 0.4MG PO QDAY ACTIVE ALLERGIES: Patient has answered NKA PHYSICAL EXAM: DATE/TIME TEMP PULSE RESP BP PAIN WEIGHT PUL OX 08/27/24 @ 0830 65 21 138/79 0 98 08/27/24 @ 0830 96.8 68 21 135/74 0 195.99 97 08/27/24 @ 0819 98.6 0 08/27/24 @ 0815 74 18 135/71 99 GENERAL: Alert and oriented x3, no acute distress. HEENT: PERRLA, EOMI. Oral mucosa pink and moist. HEART: Regular rate and rhythm. Normal S1,S2. No murmurs. LUNGS: Non-labored respirations. Lungs clear to auscultation. ABDOMEN: Soft, nontender, nondistended. Bowel sounds present. EXTREMITIES: No peripheral edema. Peripheral pulses palpable. NEURO: No focal deficits. CNII-XII grossly intact. PSYCH: Cooperative. Appropriate mood and affect. LABS: LAB RESULTS FOR: AUG 27, 2024 TROP-HS-CO: 1017 H* MRSA SCREEN: Negative URINE COLOR: Light-Yellow URINE APPEARANCE: Clear URINE PROTEIN: Negative URINE LEUKOCYTE ESTERASE: Negative URINE NITROGEN: Negative URINE BLOOD: Negative URINE KETONES: Negative URINE pH: 7.0 URINE SPECIFIC GRAVITY: 1.011 URINE BILIRUBIN: Negative URINE UROBILINOGEN: Normal URINE GLUCOSE: Negative ANTI-Xa (CO): <0.04 INR EK: 1.0 PT(03/09): 11.4 APTT ACL: 29.8 WBC: 15.70 H RBC: 4.80 HGB: 15.9 HCT: 44.9 MCV: 93.5 MCH: 33.1 MCHC: 35.4 RDW: 12.5 PLT: 236 MPV: 11.1 SEGS: 55.6 LYMPHS: 13.9 MONOCYTES: 5.2 BASO: 0.9 MYELO: 0.9 ANISOCYTOSIS: 1+ ATYPICAL LYMPHOCYTES: 23.5 PLT (ESTM)-CO: Adequate NEUTROPHIL, ABSOLUTE(M): 8.73 H IMMATURE GRANS, ABSOLUTE(M): 0.14 H LYMPHOCYTES, ABSOLUTE(M): 5.87 H MONOCYTES, ABSOLUTE(M): 0.82 H BASOPHILS, ABS(M): 0.14 PATHOLOGIST REVIEW: comment NTPROBNP: 410 GLUCOSE: 156 H UREA NITROGEN: 17 CREATININE: 1.14 SODIUM: 140 POTASSIUM: 4.1 CALCIUM: 9.4 PROTEIN,TOTAL: 8.0 ALBUMIN: 4.6 BILIRUBIN,TOTAL: 0.7 SGOT: 19 SGPT: 11 CL: 108 H CARBONDI: 21 L ALP: 68 eGFR (CKD-EPI 2020): 64 TROP-HS-CO: 15 AA RADIOLOGY: Exam date: AUG 27, 2024@06:51 Proc: CHEST 1 VIEW IMPRESSION TEXT: Mild cardiomegaly without pulmonary edema. READING PHYSICIAN: Aubrie Garcia 08/27/2024 7:29 AM REPORT TEXT: History: Ventricular tachycardia. Single view of the chest. Comparison: 05/20/2023. Findings: Lungs are clear. Mild cardiomegaly without pulmonary edema. Soft tissues are unremarkable. Atherosclerosis. Osseous structures demonstrate degenerative changes. ASSESSMENT AND PLAN: 1. 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 - Terminated with amiodarone - Resume home metoprolol 25 mg - Pending coronary angiogram - Discussed options for further management including ICD implantation vs. Lifevest. - Limited echo preliminarily suggests 20-25% EF, recommend repeat limited echocardiogram for Friday as reduction is possibly due to stunning. - Please obtain Thyroid panel, PFTs with diffuse capacity - Staffed with Dr. Roque /santiago/ WILL COWART FELLOW-CO Signed: 08/27/2024 14:23 Receipt Acknowledged By: 08/27/2024 14:28 /santiago/ EULALIA ROQUE PHYSICIAN 08/28/2024 23:21 /santiago/ SANDRA MOSLEY PHYSICIAN 08/27/2024 ADDENDUM STATUS: COMPLETED Inpatient cardiac electrophysiology consultation requested by cardiology consultative service for further evaluation of a wide QRS tachycardia. Chart reviewed and patient examined 08/27/2024. I agree with Dr. Cowart H and physical. 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 EKG upon presentation remarkable for wide QRS tachycardia (cycle length 280 ms) of right bundle morphology, positive concordance, and inferior axis. Prior EKGs remarkable for sinus rhythm and left bundle branch block. Echocardiogram last month remarkable for mild global left ventricular hypokinesis, moderate inferior hypokinesis, and ejection fraction 45 to 50%. Preliminarily I am told echocardiogram this hospitalization with ejection fraction less than 35%. Laboratory data remarkable for troponin maximum so far 1000, potassium 4.1, creatinine 1.14, normal liver transaminases, white blood cell count 16,000, and brain natruretic peptide 410. IMPRESSION 1. Sustained monomorphic VT. Cycle length 280 ms, right bundle morphology, inferior axis, positive concordance. 2. CAD with past history of multiple PCI's. Maintained on Plavix. 3. Left bundle branch block. 4. Aortic insufficiency. Previously mild to moderate. 5. By report, new fall in left ventricular function. Potentially secondary to prolonged duration of sustained VT. RECOMMENDATION 1. Await formal overread of today's transthoracic echo. 2. Cardiac catheterization pending. 3. If does well overnight, would transition from IV to oral amiodarone. In view of amiodarone's potential long-term administration, please obtain complete thyroid panel and outpatient PFTs with DIFFUSION CAPACITY. 4. Repeat limited echo on Friday. 5. I discussed with patient probable future benefit of ICD pending clinical course. Will require at very least dual-chamber ICD and possibly SUPERVISOR DETASSELING CREW ICD pending repeat limited echo on Friday. I discussed the operative procedure, benefits, and risks at length with patient. 6. Would reinitiate Toprol. 7. Discussed with Dr. Vazquez. /santiago/ EULALIA ROQUE PHYSICIAN Signed: 08/27/2024 14:46 Receipt Acknowledged By: * AWAITING SIGNATURE * KADEEM VAZQUEZ * AWAITING SIGNATURE * RADHA FIELDS * AWAITING SIGNATURE * CAROL SARABIA KATHY LYNN [place] [facility] Aug 30, 2024 09:59 AM NURSING NOTE: LOCAL TITLE: [facility] SKIN INSPECTION/ASSESSMENT STANDARD TITLE: NURSING NOTE DATE OF NOTE: AUG 30, 2024@09:59 ENTRY DATE: AUG 30, 2024@09:59:51 AUTHOR: AVIS BARTLETT EXP COSIGNER: URGENCY: STATUS: COMPLETED Assessment Type: SKIN REINSPECTION/REASSESSMENT SKIN INSPECTION: Skin Color: Usual for ethnicity Skin Temperature: Warm Skin Moisture: Normal Skin Turgor: Elastic (normal/immediate) Boris Skin Assessment: The patient's Boris Scale Score is 21. The patient is considered not at risk for development of pressure ulcers/injuries. Sensory perception -- ability to respond meaningfully to pressure-related discomfort No impairment. Moisture -- degree to which skin is exposed to moisture Rarely moist. Activity -- ability to change and control body position Walks occasionally. Mobility -- ability to change and control body position No limitation. Nutrition -- usual food intake patterns Adequate. Friction and shear No apparent problem. INTERVENTIONS: The pressure injury interventions were not needed - patient/resident is not at risk. RISK FACTORS THAT INCREASE RISK FOR DEVELOPING PRESSURE INJURIES: The patient/resident has the following: Age over 75 SKIN ALTERATIONS: Pressure Ulcer/Injury Documentation from the past year: No data available SKIN ALTERATIONS: Wound Documentation from the past year: Skin Assessment 08/27/2024 Skin Integrity - Wound SKIN INTEGRITY: Intact /es/ AVIS BARTLETT REGISTERED NURSE Signed: 08/30/2024 10:02 AVIS BARTLETT [place] [facility] Aug 29, 2024 10:42 PM INTERNAL MEDICINE INPATIENT NOTE: LOCAL TITLE: CO- GENERAL MEDICINE (INPT) RESIDENT PHYSICIAN NO STANDARD TITLE: INTERNAL MEDICINE INPATIENT NOTE DATE OF NOTE: AUG 29, 2024@22:42 ENTRY DATE: AUG 29, 2024@22:42:43 AUTHOR: LEEROY HUGHES EXP COSIGNER: CHANDU REYES URGENCY: STATUS: COMPLETED PROGRESS NOTE for ALIYAH COREY JAMIN Feb Patient Room: [address] Admission Date: Aug Admission Dx: VTACH, CHEST PAIN Admitting Physician: JEROME DOTY Subjective: Aliyah York is an 84 year old male with CAD s/p multiple Stents/ SLURRY BLENDER RPLS, chronic angina, HTN, HLD, ischemic cardiomyopathy (previously mildly reduced EF 45-50%), LBBB, aortic regurgitation, ILEANA, hx of malignant melenoma, BPH. Presented to ED on 08/27 for chest pain and palpitations.Found to be in monomorphic VT which converted with IV amiodarone. Normal electrolytes. Cardiolpogy has followed. Initial troponin on admission negative; however, increased > 1,000 by noon on day of admissoin. Known hx of ischemic cardiomyopathy with EF 45-50%. Repeat TTE this admission with EF 20-25%. S/p LHC on 08/27 without evidence of new lesions. Initiating GDMT as HD allow. EP consulted and recommending ICD/SUPERVISOR DETASSELING CREW-D, planning on 08/31. S/p amiodarone gtt (08/27-) and transitioned to oral 10 mg qam + 400 mg bid due to bradycardia. No acute events overnight. Patient remains asymptomatic and at his baseline. Vitals stable and sinus abhilash in the 40's. Has about 111 cc/hr urine output (low normal). Lytes WNL. Plan for ICD placement tomorrow. Will be NPO at midnight and hold ASA 81 mg daily and clopidogrel 75 mg daily. Objective: Vitals stable. Sinus abhilash in 40-50's. BP 120's/50's. Vitals: Date Vital Measurement Qualifiers 08/29/2024 20:00 Temp F (C) 97.5 (36.4) Temporal Pulse 49 Respir 19 BP 106/54 Pain 0 POx (L/Min)(%) 96 08/29/2024 07:00 Wt lbs (kg)[BMI] 216.27 (98.10)[34*]Standing Weight Physical exam: GENERAL: NAD. HEENT: Normocephalic. CV: RRR, s1/s2, no murmurs, rubs, or gallops. RESP: Symmetrical expansion, CTA b/l. ABD: Soft, non-tender, non-distended, BS+. NEURO: AAOx3, no focal deficits. EXT: No clubbing, cyanosis, or edema. PSYCH: Appropriate mood and affect. Active Inpatient Medications (excluding Supplies): Active Inpatient Medications Status 1) AMIODARONE TAB 400MG PO BID ACTIVE 2) AMLODIPINE TAB 10MG PO QAM ACTIVE 3) ASPIRIN TAB,CHEWABLE 81MG PO QDAY ACTIVE 4) CHOLECALCIFEROL (LOW DOSE VIT D3) TAB 25MCG PO QAM ACTIVE 5) CLOPIDOGREL TAB 75MG PO QDAY ACTIVE 6) CYANOCOBALAMIN TAB 1000MCG PO QAM ACTIVE 7) DEXTROSE 50%/WATER INJ,SOLN 50ML (25GM) IVP Q15MIN ACTIVE PRN Instructions too long. See order details for full text. 8) DEXTROSE LIQUID,ORAL 15GM PO Q15MIN PRN Instructions ACTIVE too long. See order details for full text. 9) FUROSEMIDE INJ,SOLN 20MG/2ML IVP NOW ACTIVE 10) GLUCAGON EMERGENCY INJ 1MG/1VIAL SQ Q15MIN PRN ACTIVE Instructions too long. See order details for full text. 11) HEPARIN INJ,SOLN 5000UNIT/1ML IVP Q8H PRN Anti-Xa ACTIVE <0.1 GIVE 40 units/kg, Anti-Xa 0.10 to 0.20, GIVE 20 units/kg, then per protocol 12) ISOSORBIDE MONONITRATE TAB,SA 120MG PO QDAY ACTIVE 13) LISINOPRIL TAB 10MG PO QAM ACTIVE 14) METOPROLOL SUCCINATE TAB,SA 25MG PO BID ACTIVE 15) NITROGLYCERIN TAB,SUBLINGUAL 0.4MG SL Q5MIN PRN ACTIVE NEEDED FOR CHEST PAIN. MAY REPEAT DOSE TWICE 16) OMEPRAZOLE CAP,EC 20MG PO QAM AC ACTIVE 17) RANOLAZINE TAB,SA 1000MG PO BID ACTIVE 18) ROSUVASTATIN TAB 40MG PO QHS ACTIVE 19) SODIUM CHLORIDE 0.9% PF SYR INJ 10mL IVP Q8H SALINE ACTIVE LOCK FLUSH 20) SPIRONOLACTONE TAB 25MG PO QAM ACTIVE 21) TAMSULOSIN CAP,ORAL 0.4MG PO QDAY ACTIVE Labs: CBC: 08/30: unremarkable. ANISO: 1+ (08/27/24 06:40) HCT: 39.6 (08/28/24 04:50) 39.7 (08/29/24 04:23) HGB: 14.1 (08/28/24 04:50) 14.3 (08/29/24 04:23) MCH: 33.3 (08/28/24 04:50) 33.4 (08/29/24 04:23) MCHC: 35.6 (08/28/24 04:50) 36.0 (08/29/24 04:23) MCV: 93.6 (08/28/24 04:50) 92.8 (08/29/24 04:23) MPV: 10.7 (08/28/24 04:50) 11.1 (08/29/24 04:23) NORMOCY: Yes (11/22/86 09:32) PLT: 174 (08/28/24 04:50) 164 (08/29/24 04:23) PLT.E: Adequate (08/27/24 06:40) RBC: 4.23 (08/28/24 04:50) 4.28 (08/29/24 04:23) RDW: 12.5 (08/28/24 04:50) 12.6 (08/29/24 04:23) WBC: 9.20 (08/28/24 04:50) 8.50 (08/29/24 04:23) CMP: 08/30: Lytes WNL, CMP unremarkable. ALB: 3.7 (08/28/24 04:50) 3.9 (08/29/24 04:23) ALKPHOS: 51 (08/28/24 04:50) 50 (08/29/24 04:23) ALT: 9 (08/28/24 04:50) 8 (08/29/24 04:23) ANI GAP: 10.0 (11/22/86 09:32) AST: 24 (08/28/24 04:50) 17 (08/29/24 04:23) CA: 8.5 (08/28/24 04:50) 8.8 (08/29/24 04:23) CL : 109 (08/28/24 04:50) 107 (08/29/24 04:23) CO2 : 22 (08/28/24 04:50) 23 (08/29/24 04:23) SUPERVISOR DETASSELING CREW: 0.87 (08/28/24 04:50) 1.04 (08/29/24 04:23) EGFR: 69.7 (07/18/21 05:30) 62.0 (08/20/21 07:46) GLU: 92 (08/28/24 04:50) 95 (08/29/24 04:23) K: 4.2 (08/28/24 04:50) 4.7 (08/29/24 04:23) NA: 138 (08/28/24 04:50) 139 (08/29/24 04:23) TBIL: 0.7 (08/28/24 04:50) 0.7 (08/29/24 04:23) TP: 6.5 (08/28/24 04:50) 6.7 (08/29/24 04:23) UREA: 13 (08/28/24 04:50) 15 (08/29/24 04:23) eGFR(CKD-E86 (08/28/24 04:50) 72 (08/29/24 04:23) Radiology: Exam date: AUG 27, 2024@06:51 Proc: CHEST 1 VIEW IMPRESSION TEXT: Mild cardiomegaly without pulmonary edema. READING PHYSICIAN: Aubrie Garcia 08/27/2024 7:29 AM REPORT TEXT: History: Ventricular tachycardia. Single view of the chest. Comparison: 05/20/2023. Findings: Lungs are clear. Mild cardiomegaly without pulmonary edema. Soft tissues are unremarkable. Atherosclerosis. Osseous structures demonstrate degenerative changes. Assessment and Plan: Aliyah York is an 84 year old male with CAD s/p multiple Stents/ SLURRY BLENDER RPLS, chronic angina, HTN, HLD, ischemic cardiomyopathy (previously mildly reduced EF 45-50%), LBBB, aortic regurgitation, ILEANA, hx of malignant melenoma, BPH. Presented to ED on 08/27 for chest pain and palpitations.Found to be in monomorphic VT which converted with IV amiodarone. Normal electrolytes. Cardiology has followed. Initial troponin on admission negative; however, increased > 1,000 by noon on day of admissoin. Known hx of ischemic cardiomyopathy with EF 45-50%. Repeat TTE this admission with EF 20-25%. S/p LHC on 08/27 without evidence of new lesions. Initiating GDMT as HD allow. Sinus bradycardic in the s. Will reduce metoprolol succinate to 25 mg daily and decrease amiodarone, as below. Currently on 08/10, missing SGLT2i. Repeat limited echo 08/30 to assess EF, pending. EP consulted and recommending ICD/SUPERVISOR DETASSELING CREW-D, plan for 08/31. NPO at midnight and holding home ASA 81 mg daily and clopidogrel 75 mg daily. Consider not resuming ASA 81 mg, will discuss with patient. S/p amiodarone gtt (08/27-) and transitioned to oral 10 mg qam + 400 mg bid; since reduced to 400 mg daily due to bradycardia. 24-hour plan: - Initiate GDMT as HD allow. On , missing SGLT2i currently. - Continues to be sinus abhilash and asymptomatic. Will reduce metoprolol succinate from 25 mg bid to 25 mg daily. Will reduce amiodarone from 10 mg qam + 400 mg bid to only 400 mg daily. - Obtain repeat limited echo 08/30 to assess EF. - EP following. ICD/SUPERVISOR DETASSELING CREW-D to be placed this week. Tentative date 08/31. NPO at midnight and hold home ASA 81 mg daily and clopidogrel 75 mg daily. Consider not resuming ASA 81 mg after procedure. Will discuss with patient. - Monitor I/O's. Today's output 111 cc/hr (low end of normal). Euvolemic on exam. Cr stable. - S/p 20 mg furosemide last night. To give 20 mg in AM. - Follow up on PFT. - AM labs: CBC, CMP, Mg. [Discharge planning] - Will discharge to home likely day after ICD placement, 09/01. #Monomophic VT #HFrEF (Now 20-25%) Ischemic Cardiomyopathy #CAD s/p Multiple Stents/ SLURRY BLENDER RPLS #Chronic Stable Angina #HTN #HLD #LBBB #Sinus bradycardia - S/p amiodarone gtt. Transitioned to po 10 mg qam + 400 mg bid d/t bradycardia. Decreased to 400 mg daily d/t abhilash. - EP following. ICD/SUPERVISOR DETASSELING CREW-D to be placed this week. Tentative date 08/31. - Initiate GDMT as HD allow: 1) Lisinopril 10 mg daily. 2) Metoprolol succinate 25 mg bid. Reduced to 25 mg daily. 3) Spironolactone 25 mg aily. 4) - SGLT2i. - Diurese pending fluid status, labs, I/O's. S/p 20 mg furosemide last night. To give 20 mg in AM. - Continue Isosobride Mononitrate 120 mg daily/ Ranolazine 1000 mg bid. - Hold home ASA 81 mg daily for ICD placement. Consider not resuming post procedure. - Hold home clopidogrel 75 mg daily for procedure. - Continue home rosuvastatin 40 mg qhs. #BPH - Continue home tamsulosin 0.4 mg PO daily. #GERD - Continue home omeprazole 20 mg qam ac. #ILEANA #History of malignant melanoma #Vit D deficiency - Continue home cholecalciferol 25 mcg qam. #B12 deficiency - Continue home cyanocobalamin 1,000 mcg qam. CODE: FULL. Diet: Heart-healthy. NPO at midnight. DVT ppx: Heparin. Hold AM dose. Dispo: Team 2, ICU. Staffed with attending physician Dr. Reyes. /santiago/ LEEROY HUGHES RESIDENT PHYSICIAN Signed: 08/30/2024 11:23 /santiago/ CHANDU REYES Resident Physician Cosigned: 08/30/2024 14:08 LEEROY HUGHES [facility] Aug 29, 2024 09:52 PM NURSING NOTE: LOCAL TITLE: CO-NURSING PROGRESS NOTE ICU/PCU STANDARD TITLE: NURSING NOTE DATE OF NOTE: AUG 29, 2024@21:52 ENTRY DATE: AUG 29, 2024@21:52:30 AUTHOR: RAHAT GASCA EXP COSIGNER: URGENCY: STATUS: COMPLETED Report received and assumed care of patient at 19:30 he was resting in bed. He stated that he didn't get much of a nap in today so he decided to go to bed early. It was passed in report to hold all blood thinners because starting tonight. His clopidogrel should be held in the morning for his ICD placement on Friday. He was able to transition from IV amiodarone to PO and appears to be tolerating it well. I spoke with his daughter this evening and was able to give her status updates so she is aware of Friday, and current medications that are going to be held. Urine output was great overnight, 2550ml. He has had no complaints of chest pain or discomfort during the tour. No major complaints or events during the tour. Please see BCMA, CPRS and ICCA for more information. /santiago/ RAHAT GASCA REGISTERED NURSE Signed: 08/30/2024 07:22 RAHAT GASCA [facility] Aug 29, 2024 09:50 PM NURSING NOTE: LOCAL TITLE: VAAES SKIN INSPECTION/ASSESSMENT STANDARD TITLE: NURSING NOTE DATE OF NOTE: AUG 29, 2024@21:50 ENTRY DATE: AUG 29, 2024@21:50:45 AUTHOR: RAHAT GASCA COSIGNER: URGENCY: STATUS: COMPLETED Assessment Type: SKIN REINSPECTION/REASSESSMENT SKIN INSPECTION: Skin Color: Usual for ethnicity Skin Temperature: Warm Skin Moisture: Normal Skin Turgor: Elastic (normal/immediate) Boris Skin Assessment: The patient's Boris Scale Score is 23. The patient is considered not at risk for development of pressure ulcers/injuries. Sensory perception -- ability to respond meaningfully to pressure-related discomfort No impairment. Moisture -- degree to which skin is exposed to moisture Rarely moist. Activity -- ability to change and control body position Walks frequently. Mobility -- ability to change and control body position No limitation. Nutrition -- usual food intake patterns Excellent. Friction and shear No apparent problem. INTERVENTIONS: No change in previous interventions as listed below Vaaes Pressure Injury Interventions 08/29/2024 Vaaes Pressure Injury Int Not Needed RISK FACTORS THAT INCREASE RISK FOR DEVELOPING PRESSURE INJURIES: The patient/resident has the following: Age over 75 Device(s): (nasogastric tubes, oxygen tubing, urinary catheters, cell phone etc.) Comment: call light, ekg bp and pulse ox tubing, PIV x2 SKIN INTEGRITY: Intact /santiago/ RAHAT GASCA REGISTERED NURSE Signed: 08/29/2024 21:52 RAHAT GASCA [facility] Aug 29, 2024 06:43 PM STOPPER MAKER HELPER NOTE: LOCAL TITLE: CO-STOPPER MAKER HELPER NOTE (D) STANDARD TITLE: STOPPER MAKER HELPER NOTE DATE OF NOTE: AUG 29, 2024@18:43 ENTRY DATE: AUG 29, 2024@18:43:55 AUTHOR: CALISTA ROCHE EXP COSIGNER: BHKIMBERLID,KADEEM BRIJMOALAN URGENCY: STATUS: COMPLETED PROGRESS NOTE for ALIYAH COREY Feb : 84 y/o Patient Room: [address] Admission Date: Aug Admission Dx: VTACH, CHEST PAIN Admitting Physician: JEROME DOTY CAMERON SPENCER AUG 28, 2024@06:45:56 I) SUBJECTIVE: CHIEF COMPLAINT: VTACH, CHEST PAIN Patient reports he feels well today. Denies any chest pain, shortness of breath, lightheadedness, or syncope. A complete ROS is negative except per HPI. II) OBJECTIVE: VITALS DATE/TIME TEMP PULSE RESP BP PAIN WEIGHT PUL OX 08/29/24 @ 0700 216.27 08/28/24 @ 1999 97.2 51 17 121/67 0 96 08/28/24 @ 0500 192.68 08/27/24 @ 1999 97.7 51 16 138/67 0 95 PHYSICAL EXAM: GENERAL: in no acute distress HEENT: Head atraumatic, normocephalic. EOMI, Oropharynx pink, moist, without mucosal lesions. CV: Bradycardic rate and rhythm. No murmurs, rubs, or gallops noted. No JVD. RESP: Rales in lower lung bases. ABD: Soft, nontender, nondistended. No guarding or rebound tenderness. NEURO: No gross neurological defects, moving all extremities EXT: No clubbing or cyanosis. SKIN: No rashes, bruises or cuts PSYCH: Patient alert and oriented. Appropriate mood and affect. MEDICATIONS Active Inpatient Medications (excluding Supplies): Active Inpatient Medications Status 1) AMIODARONE TAB 400MG PO TID ACTIVE 2) AMLODIPINE TAB 10MG PO QAM ACTIVE 3) ASPIRIN TAB,CHEWABLE 81MG PO QDAY ACTIVE 4) CHOLECALCIFEROL (LOW DOSE VIT D3) TAB 25MCG PO QAM ACTIVE 5) CLOPIDOGREL TAB 75MG PO QDAY ACTIVE 6) CYANOCOBALAMIN TAB 1000MCG PO QAM ACTIVE 7) DEXTROSE 50%/WATER INJ,SOLN 50ML (25GM) IVP Q15MIN ACTIVE PRN Instructions too long. See order details for full text. 8) DEXTROSE LIQUID,ORAL 15GM PO Q15MIN PRN Instructions ACTIVE too long. See order details for full text. 9) FUROSEMIDE INJ,SOLN 20MG/2ML IVP NOW ACTIVE 10) GLUCAGON EMERGENCY INJ 1MG/1VIAL SQ Q15MIN PRN ACTIVE Instructions too long. See order details for full text. 11) HEPARIN 25,000 UNITS / 0.45% NACL INJ,SOLN in HEPARIN ACTIVE 25,000 UNITS/0.45%NACL 500 ML TITRATE@1 Instructions too long. See order details for full text. IV 12) HEPARIN INJ,SOLN 5000UNIT/1ML IVP Q8H PRN Anti-Xa ACTIVE <0.1 GIVE 40 units/kg, Anti-Xa 0.10 to 0.20, GIVE 20 units/kg, then per protocol 13) ISOSORBIDE MONONITRATE TAB,SA 120MG PO QDAY ACTIVE 14) LISINOPRIL TAB 10MG PO QAM ACTIVE 15) METOPROLOL SUCCINATE TAB,SA 25MG PO BID ACTIVE 16) NITROGLYCERIN TAB,SUBLINGUAL 0.4MG SL Q5MIN PRN ACTIVE NEEDED FOR CHEST PAIN. MAY REPEAT DOSE TWICE 17) OMEPRAZOLE CAP,EC 20MG PO QAM AC ACTIVE 18) RANOLAZINE TAB,SA 1000MG PO BID ACTIVE 19) ROSUVASTATIN TAB 40MG PO QHS ACTIVE 20) SODIUM CHLORIDE 0.9% PF SYR INJ 10mL IVP Q8H SALINE ACTIVE LOCK FLUSH 21) SPIRONOLACTONE TAB 25MG PO QAM ACTIVE 22) TAMSULOSIN CAP,ORAL 0.4MG PO QDAY ACTIVE Compared newly ordered medications and medication changes to active medications and non-VA medications, and then reviewed medications with patient and/or caregiver. All discrepancies noted and reconciled. Patients, or caregivers, was provided with reconciled medications list and advised to provide to all non VA providers. Potential adverse reactions of new medications were discussed with the patient. PATHOLOGY LAB RESULTS FOR: AUG 29, 2024 WBC: 8.50 RBC: 4.28 HGB: 14.3 HCT: 39.7 MCV: 92.8 MCH: 33.4 MCHC: 36.0 RDW: 12.6 PLT: 164 MPV: 11.1 ALTERNATE LYMPHS: 27.9 MONOS, ABSOLUTE: 0.72 EOSINO, ABSOLUTE: 0.05 BASO, ABSOLUTE: 0.02 GRANULOCYTES, ABSOLUTE: 5.32 GRANULOCYTE, ALTERNATE %: 62.3 MONOCYTE, ALTERNATE %: 8.4 EOS AUTO: 0.6 BASO AUTO: 0.2 LYMPH ABSOLUTE: 2.38 IMMATURE GRANULOCYTE ABSOLUTE: 0.05 IMMATURE GRANULOCYTE PERCENT: 0.6 GLUCOSE: 95 UREA NITROGEN: 15 CREATININE: 1.04 SODIUM: 139 POTASSIUM: 4.7 CALCIUM: 8.8 PROTEIN,TOTAL: 6.7 ALBUMIN: 3.9 BILIRUBIN,TOTAL: 0.7 SGOT: 17 SGPT: 8 CL: 107 CARBONDI: 23 ALP: 50 eGFR (CKD-EPI 2020): 72 Lab Results - NONE FOUND No data available Exam date: AUG 27, 2024@06:51 Proc: CHEST 1 VIEW IMPRESSION TEXT: Mild cardiomegaly without pulmonary edema. READING PHYSICIAN: Aubrie Garcia 08/27/2024 7:29 AM REPORT TEXT: History: Ventricular tachycardia. Single view of the chest. Comparison: 05/20/2023. Findings: Lungs are clear. Mild cardiomegaly without pulmonary edema. Soft tissues are unremarkable. Atherosclerosis. Osseous structures demonstrate degenerative changes. III) ASSESSMENT AND PLAN 84 y/o with known H/O as per HPI. Presented to the ER due to chest pain and palpitations post sexual intercourse with his . Noted to be in monomorphic VT which converted with IV amiodarone, normal electrolytes. Known H/O Ischemic Cardiomyopathy with previusly mildy reduced EF to 45-50%. Underwent LHC without evidence of new lesions. EP consultation with recommendation for ICD/SUPERVISOR DETASSELING CREW-D sometime next week, continue Amiodarone with plans to transition to oral. #Monomophic VT #HFrEF( Now 20-25%) Ischemic Cardiomyopathy #CAD s/p Multiple Stents/ SLURRY BLENDER RPLS #Chronic Stable Angina #HTN #LBBB Plan: -Please stop heparin drip -Reduce amiodarone to 400 mg twice daily due to bradycardia -20 IV Lasix tonight, 20 of IV Lasix tomorrow morning -Continue metoprolol succinate 25 BID -Continue lisinopril 20 mg daily -Crestor 40 mg daily -Continue spironolactone 25 mg daily -Continue Isosobride Mononitrate 120 mg daily/ Ranolazine 1000 mg bid -ASA 81 mg daily -ICD placement sometime next week by EP Staffed with attending physician Dr. Vazquez /santiago/ CALISTA ROCHE STOPPER MAKER HELPER Signed: 08/29/2024 18:48 /santiago/ KADEEM VAZQUEZ PHYSICIAN Cosigned: 08/31/2024 08:05 CALISTA ROCHE [facility] Aug 29, 2024 04:32 PM NURSING NOTE: LOCAL TITLE: CO-NURSING PROGRESS NOTE ICU/PCU STANDARD TITLE: NURSING NOTE DATE OF NOTE: AUG 29, 2024@16:32 ENTRY DATE: AUG 29, 2024@16:32:52 AUTHOR: ALYCIA KAUFFMAN EXP COSIGNER: URGENCY: STATUS: COMPLETED Care of patient assumed at approx 1600. Pt A&Ox4, ambulated to bathroom for BM. HR bradycardic in 30s-40s, cardiology aware. Pending ICD or vest sometime this week. Lasix given per Deann. See ICCA, CPRS and BCMA for complete cares delivered during this tour. /santiago/ ALYCIA KAUFFMAN REGISTERED NURSE Signed: 08/29/2024 16:47 ALYCIA KAUFFMAN [facility] Aug 29, 2024 12:01 PM INTERNAL MEDICINE INPATIENT NOTE: LOCAL TITLE: CO-PC GENERAL MEDICINE (INPT) RESIDENT PHYSICIAN NO STANDARD TITLE: INTERNAL MEDICINE INPATIENT NOTE DATE OF NOTE: AUG 29, 2024@12:01 ENTRY DATE: AUG 29, 2024@12:01:43 AUTHOR: LEEANNE BARRIOS COSIGNER: CHANDU REYES URGENCY: STATUS: COMPLETED Progress note: AUG 29, 2024 NAME: ALIYAH COREY SSN/: [id number] Feb AGE: 84 SEX: MALE RACE: WHITE SUBJECTIVE The patient was seen in the AM on 08/29. He has no immediate concerns. Stated he felt well, and the chest pain has not returned. Cardiology service continuing to follow, planning ICD placement sometime next week, TBD. OBJECTIVE --- PHYSICAL EXAMINATION --- GENERAL: NAD HEENT: normocephalic CV: RRR, s1/s2, no murmurs, rubs, or gallops RESP: symmetrical expansion, CTA b/l ABD: soft, non-tender, non-distended, BS+ NEURO: AAOx3, no focal deficits EXT: no clubbing, cyanosis, or edema PSYCH: appropriate mood and affect --- VITAL SIGNS --- T 97.2 F [36.2 C] (08/28/2024 20:00) BP 121/67 (08/28/2024 20:00) P 51 (08/28/2024 20:00) RR 17 (08/28/2024 20:00) SPO2 ____ HT 67 in [170.2 cm] (09/26/2023 07:47) WT 98.304 kg (08/29/2024) --- LABS/DIAGNOSTIC --- LAB RESULTS FOR: AUG 29, 2024 WBC: 8.50 RBC: 4.28 HGB: 14.3 HCT: 39.7 MCV: 92.8 MCH: 33.4 MCHC: 36.0 RDW: 12.6 PLT: 164 MPV: 11.1 ALTERNATE LYMPHS: 27.9 MONOS, ABSOLUTE: 0.72 EOSINO, ABSOLUTE: 0.05 BASO, ABSOLUTE: 0.02 GRANULOCYTES, ABSOLUTE: 5.32 GRANULOCYTE, ALTERNATE %: 62.3 MONOCYTE, ALTERNATE %: 8.4 EOS AUTO: 0.6 BASO AUTO: 0.2 LYMPH ABSOLUTE: 2.38 IMMATURE GRANULOCYTE ABSOLUTE: 0.05 IMMATURE GRANULOCYTE PERCENT: 0.6 GLUCOSE: 95 UREA NITROGEN: 15 CREATININE: 1.04 SODIUM: 139 POTASSIUM: 4.7 CALCIUM: 8.8 PROTEIN,TOTAL: 6.7 ALBUMIN: 3.9 BILIRUBIN,TOTAL: 0.7 SGOT: 17 SGPT: 8 CL: 107 CARBONDI: 23 ALP: 50 eGFR (CKD-EPI 2020): 72 --- INPATIENT MEDICATIONS --- Active Inpatient Medications (excluding Supplies): Active Inpatient Medications Status 1) AMIODARONE TAB 400MG PO TID ACTIVE 2) AMLODIPINE TAB 10MG PO QAM ACTIVE 3) ASPIRIN TAB,CHEWABLE 81MG PO QDAY ACTIVE 4) CHOLECALCIFEROL (LOW DOSE VIT D3) TAB 25MCG PO QAM ACTIVE 5) CLOPIDOGREL TAB 75MG PO QDAY ACTIVE 6) CYANOCOBALAMIN TAB 1000MCG PO QAM ACTIVE 7) DEXTROSE 50%/WATER INJ,SOLN 50ML (25GM) IVP Q15MIN ACTIVE PRN Instructions too long. See order details for full text. 8) DEXTROSE LIQUID,ORAL 15GM PO Q15MIN PRN Instructions ACTIVE too long. See order details for full text. 9) GLUCAGON EMERGENCY INJ 1MG/1VIAL SQ Q15MIN PRN ACTIVE Instructions too long. See order details for full text. 10) HEPARIN 25,000 UNITS / 0.45% NACL INJ,SOLN in HEPARIN ACTIVE 25,000 UNITS/0.45%NACL 500 ML TITRATE@1 Instructions too long. See order details for full text. IV 11) HEPARIN INJ,SOLN 5000UNIT/1ML IVP Q8H PRN Anti-Xa ACTIVE <0.1 GIVE 40 units/kg, Anti-Xa 0.10 to 0.20, GIVE 20 units/kg, then per protocol 12) ISOSORBIDE MONONITRATE TAB,SA 120MG PO QDAY ACTIVE 13) LISINOPRIL TAB 10MG PO QAM ACTIVE 14) METOPROLOL SUCCINATE TAB,SA 25MG PO BID ACTIVE 15) NITROGLYCERIN TAB,SUBLINGUAL 0.4MG SL Q5MIN PRN ACTIVE NEEDED FOR CHEST PAIN. MAY REPEAT DOSE TWICE 16) OMEPRAZOLE CAP,EC 20MG PO QAM AC ACTIVE 17) RANOLAZINE TAB,SA 1000MG PO BID ACTIVE 18) ROSUVASTATIN TAB 40MG PO QHS ACTIVE 19) SODIUM CHLORIDE 0.9% PF SYR INJ 10mL IVP Q8H SALINE ACTIVE LOCK FLUSH 20) SPIRONOLACTONE TAB 25MG PO QAM ACTIVE 21) SPIRONOLACTONE TAB 25MG PO NOW ACTIVE 22) TAMSULOSIN CAP,ORAL 0.4MG PO QDAY ACTIVE RADIOLOGY all recent images reviewed Exam date: AUG 27, 2024@06:51 Proc: CHEST 1 VIEW IMPRESSION TEXT: Mild cardiomegaly without pulmonary edema. READING PHYSICIAN: Aubrie Garcia 08/27/2024 7:29 AM REPORT TEXT: History: Ventricular tachycardia. Single view of the chest. Comparison: 05/20/2023. Findings: Lungs are clear. Mild cardiomegaly without pulmonary edema. Soft tissues are unremarkable. Atherosclerosis. Osseous structures demonstrate degenerative changes. ASSESSMENT/PLAN Aliyah Corey is an 84-year-old male with PMH of CAD, chronic angina, HTN, HLD, likely ischemic cardiomyopathy, left bundle branch block, aortic regurgitation, sleep apnea, history of malignant melanoma, BPH who presents with chest pain on 08/27/2024. S/p amiodorone bolus in ED for ventricular tachycardia which converted back to sinus. Troponin on initial presentation benign, however increased to over 1000 by noon day of admission. Cardiology has been following since presntation to ED and is planning catheterization on 08/27. 24 hr plan: -ACS protocol, continue heparin drip pending cardiology recommendations -Stop IV amiodarone and transition to amiodarone 400 mg p.o. 3 times daily -Start spironolactone 25 mg daily -Cardiology following, planning SUPERVISOR DETAS[employer]ING CREW device implant next week, tentative Thursday 08/31 -PFT pending -Increase Metoprolol succinate to 25 mg PO BID -Medication changes as per cardiology #ACS, NSTEMI #Ventricular tachycardia #Monomophic VT -ACS protocol, continue heparin drip pending cardiology recs -S/p catheterization 08/27, no stenting -Start spironolactone 25 mg daily -Continue amiodorone drip -Continue lisinopril 10 mg PO daily -Continue rosuvastatin 40 mg qHS -Continue aspirin 81 mg PO daily -Continue Isosobride Mononitrate 120 mg PO daily -Continue Ranolazine 1000 mg PO BID -Continue home clopidogrel 75 mg PO daily -Cardiology following, planning SUPERVISOR [employer]W device implant next week, tentative Thursday 08/31 -Ordered TSH, PFTs with DLCO -Increased Metoprolol succinate to 25 mg PO BID #CAD #Chronic Stable Angina #Ischemic cardiomyopathy #Moderate aortic regurgitation #History of left bundle branch block -Continue home metoprolol succinate 25 mg PO qAM -Continue home Imdur 120 mg PO qAM #HTN -Continue home amlodipine 10 mg PO daily -Continue home lisinopril 10 mg PO qAM #HLD -Continue home rosuvastatin 40 mg qHS #BPH -Continue home tamsulosin 0.4 mg PO daily #ILEANA #History of malignant melanoma Diet: Heart Healthy Team: Team 2, ICU [id number] Code status: Full code DVT Prophylaxis: Heparin gtt Patient seen and staffed with Dr. Chandu Reyes /santiago/ WAQAR BARRIOS RESIDENT Signed: 08/29/2024 12:12 /santiago/ CHANDU REYES Resident Physician Cosigned: 08/30/2024 14:01 [facility], 2024 09:25 AM NURSING NOTE: LOCAL TITLE: VAAES SKIN INSPECTION/ASSESSMENT STANDARD TITLE: NURSING NOTE DATE OF NOTE: AUG 29, 2024@09:25 ENTRY DATE: AUG 29, 2024@09:25:59 AUTHOR: RUTH OAKES COSIGNER: URGENCY: STATUS: COMPLETED VAAES SKIN INSPECTION/ASSESSMENT Has ADDENDA Assessment Type: SKIN REINSPECTION/REASSESSMENT SKIN INSPECTION: Skin Color: Usual for ethnicity Skin Temperature: Warm Skin Moisture: Normal Skin Turgor: Elastic (normal/immediate) Boris Skin Assessment: The patient's Boris Scale Score is 23. The patient is considered not at risk for development of pressure ulcers/injuries. Sensory perception -- ability to respond meaningfully to pressure-related discomfort No impairment. Moisture -- degree to which skin is exposed to moisture Rarely moist. Activity -- ability to change and control body position Walks frequently. Mobility -- ability to change and control body position No limitation. Nutrition -- usual food intake patterns Excellent. Friction and shear No apparent problem. INTERVENTIONS: The pressure injury interventions were not needed - patient/resident is not at risk. RISK FACTORS THAT INCREASE RISK FOR DEVELOPING PRESSURE INJURIES: The patient/resident has the following: Age over 75 Known vascular surgery or vascular disease Device(s): (nasogastric tubes, oxygen tubing, urinary catheters, cell phone etc.) Comment: VIANEY HAND SKIN ALTERATIONS: Pressure Ulcer/Injury Documentation from the past year: No data available SKIN ALTERATIONS: Wound Documentation from the past year: Skin Assessment 08/27/2024 Skin Integrity - Wound SKIN INTEGRITY: Intact /santiago/ RUTH OAKES REGISTERED NURSE Signed: 08/29/2024 09:27 08/29/2024 ADDENDUM STATUS: COMPLETED Assessment reviewed and remains current for this RN. /es/ ALYCIA KAUFFMAN REGISTERED NURSE Signed: 08/29/2024 16:31 RUTH OAKES [facility] Aug 29, 2024 01:46 AM NURSING NOTE: LOCAL TITLE: CO-NURSING PROGRESS NOTE ICU/PCU STANDARD TITLE: NURSING NOTE DATE OF NOTE: AUG 29, 2024@01:46 ENTRY DATE: AUG 29, 2024@01:46:15 AUTHOR: RAHAT GASCA COSIGNER: URGENCY: STATUS: COMPLETED Report received and assumed care of patient at 19:30, he was resting in bed with no complaints. Night times medications were given and he was looking forward to going to bed. He was able to get plenty of sleep during the tour. He had good urine output during the night no complaints of chest pain, heart rate still drops low while sleep but he remains asymptomatic. No major issues or complications. Please see BCMA, CPRS and ICCA for more information. /santiago/ RAHAT GASCA REGISTERED NURSE Signed: 08/29/2024 07:31 RAHAT GASCA [facility] Aug 29, 2024 01:44 AM NURSING NOTE: LOCAL TITLE: VAAES SKIN INSPECTION/ASSESSMENT STANDARD TITLE: NURSING NOTE DATE OF NOTE: AUG 29, 2024@01:44 ENTRY DATE: AUG 29, 2024@01:44:11 AUTHOR: RAHAT GASCA COSIGNER: URGENCY: STATUS: COMPLETED Assessment Type: SKIN REINSPECTION/REASSESSMENT SKIN INSPECTION: Skin Color: Usual for ethnicity Skin Temperature: Warm Skin Moisture: Normal Skin Turgor: Elastic (normal/immediate) Boris Skin Assessment: The patient's Boris Scale Score is 22. The patient is considered not at risk for development of pressure ulcers/injuries. Sensory perception -- ability to respond meaningfully to pressure-related discomfort No impairment. Moisture -- degree to which skin is exposed to moisture Rarely moist. Activity -- ability to change and control body position Walks frequently. Mobility -- ability to change and control body position Slightly limited. Nutrition -- usual food intake patterns Excellent. Friction and shear No apparent problem. INTERVENTIONS: No change in previous interventions as listed below Vaaes Pressure Injury Interventions 08/27/2024 Vaaes Pressure Injury Int Not Needed RISK FACTORS THAT INCREASE RISK FOR DEVELOPING PRESSURE INJURIES: The patient/resident has the following: Age over 75 Known vascular surgery or vascular disease Device(s): (nasogastric tubes, oxygen tubing, urinary catheters, cell phone etc.) Comment: call light, bp pulse ox ekg tubing, PIV x2 SKIN ALTERATIONS: Pressure Ulcer/Injury Documentation from the past year: No data available SKIN ALTERATIONS: Wound Documentation from the past year: Skin Assessment 08/27/2024 Skin Integrity - Wound SKIN INTEGRITY: Intact /es/ RAHAT GASCA REGISTERED NURSE Signed: 08/29/2024 01:46 RAHAT GASCA [facility] Aug 28, 2024 02:49 PM STOPPER MAKER HELPER NOTE: LOCAL TITLE: CO-STOPPER MAKER HELPER NOTE (D) STANDARD TITLE: STOPPER MAKER HELPER NOTE DATE OF NOTE: AUG 28, 2024@14:49 ENTRY DATE: AUG 28, 2024@14:49:52 AUTHOR: CALISTA ROCHE EXP COSIGNER: KADEEM VAZQUEZ URGENCY: STATUS: COMPLETED PROGRESS NOTE for ALIYAH COREY Feb : 84 y/o Patient Room: [address] Admission Date: Aug Admission Dx: VTACH, CHEST PAIN Admitting Physician: JEROME DOTY CAMERON SPENCER AUG 28, 2024@06:45:56 I) SUBJECTIVE: CHIEF COMPLAINT: VTACH, CHEST PAIN Patient reports he feels well. No chest pain, palpitations, lightheadedness, or shortness of breath. A complete ROS is negative except per HPI. II) OBJECTIVE: VITALS DATE/TIME TEMP PULSE RESP BP PAIN WEIGHT PUL OX 08/28/24 @ 0500 192.68 08/27/24 @ 2000 97.7 51 16 138/67 0 95 08/27/24 @ 0830 65 21 138/79 0 98 08/27/24 @ 0830 96.8 68 21 135/74 0 195.99 97 PHYSICAL EXAM: GENERAL: in no acute distress HEENT: Head atraumatic, normocephalic. EOMI, Oropharynx pink, moist, without mucosal lesions. CV: regular rate and rhythm. No murmurs, rubs, or gallops noted. No JVD. No peripheral edema. RESP: clear to auscultation bilaterally. No wheezes or rales. ABD: Soft, nontender, nondistended. No guarding or rebound tenderness. NEURO: No gross neurological defects, moving all extremities EXT: No clubbing or cyanosis. SKIN: No rashes, bruises or cuts PSYCH: Patient alert and oriented. Appropriate mood and affect. MEDICATIONS Active Inpatient Medications (excluding Supplies): Active Inpatient Medications Status 1) AMIODARONE 360MG PREMIX INJ INJ in AMIODARONE 360MG/ ACTIVE D5W 200 ML 1 mg/min x 6hrs @1 continue at 0.5mg/min (*1.8 MG/ML*) IV 2) AMLODIPINE TAB 10MG PO QAM ACTIVE 3) ASPIRIN TAB,CHEWABLE 81MG PO QDAY ACTIVE 4) CHOLECALCIFEROL (LOW DOSE VIT D3) TAB 25MCG PO QAM ACTIVE 5) CLOPIDOGREL TAB 75MG PO QDAY ACTIVE 6) CYANOCOBALAMIN TAB 1000MCG PO QAM ACTIVE 7) DEXTROSE 50%/WATER INJ,SOLN 50ML (25GM) IVP Q15MIN ACTIVE PRN Instructions too long. See order details for full text. 8) DEXTROSE LIQUID,ORAL 15GM PO Q15MIN PRN Instructions ACTIVE too long. See order details for full text. 9) GLUCAGON EMERGENCY INJ 1MG/1VIAL SQ Q15MIN PRN ACTIVE Instructions too long. See order details for full text. 10) HEPARIN 25,000 UNITS / 0.45% NACL INJ,SOLN in HEPARIN ACTIVE 25,000 UNITS/0.45%NACL 500 ML TITRATE@1 Instructions too long. See order details for full text. IV 11) HEPARIN INJ,SOLN 5000UNIT/1ML IVP Q8H PRN Anti-Xa ACTIVE <0.1 GIVE 40 units/kg, Anti-Xa 0.10 to 0.20, GIVE 20 units/kg, then per protocol 12) ISOSORBIDE MONONITRATE TAB,SA 120MG PO QDAY ACTIVE 13) LISINOPRIL TAB 10MG PO QAM ACTIVE 14) METOPROLOL SUCCINATE TAB,SA 25MG PO BID ACTIVE 15) NITROGLYCERIN TAB,SUBLINGUAL 0.4MG SL Q5MIN PRN ACTIVE NEEDED FOR CHEST PAIN. MAY REPEAT DOSE TWICE 16) OMEPRAZOLE CAP,EC 20MG PO QAM AC ACTIVE 17) RANOLAZINE TAB,SA 1000MG PO BID ACTIVE 18) ROSUVASTATIN TAB 40MG PO QHS ACTIVE 19) SODIUM CHLORIDE 0.9% PF SYR INJ 10mL IVP Q8H SALINE ACTIVE LOCK FLUSH 20) TAMSULOSIN CAP,ORAL 0.4MG PO QDAY ACTIVE Compared newly ordered medications and medication changes to active medications and non-VA medications, and then reviewed medications with patient and/or caregiver. All discrepancies noted and reconciled. Patients, or caregivers, was provided with reconciled medications list and advised to provide to all non VA providers. Potential adverse reactions of new medications were discussed with the patient. PATHOLOGY LAB RESULTS FOR: AUG 28, 2024 WBC: 9.20 RBC: 4.23 HGB: 14.1 HCT: 39.6 MCV: 93.6 MCH: 33.3 MCHC: 35.6 RDW: 12.5 PLT: 174 MPV: 10.7 ALTERNATE LYMPHS: 28.9 MONOS, ABSOLUTE: 0.86 H EOSINO, ABSOLUTE: 0.05 BASO, ABSOLUTE: 0.02 GRANULOCYTES, ABSOLUTE: 5.55 GRANULOCYTE, ALTERNATE %: 60.5 MONOCYTE, ALTERNATE %: 9.4 EOS AUTO: 0.5 BASO AUTO: 0.2 LYMPH ABSOLUTE: 2.66 IMMATURE GRANULOCYTE ABSOLUTE: 0.05 IMMATURE GRANULOCYTE PERCENT: 0.5 GLUCOSE: 92 UREA NITROGEN: 13 CREATININE: 0.87 SODIUM: 138 POTASSIUM: 4.2 CALCIUM: 8.5 PROTEIN,TOTAL: 6.5 ALBUMIN: 3.7 BILIRUBIN,TOTAL: 0.7 SGOT: 24 SGPT: 9 CL: 109 H CARBONDI: 22 ALP: 51 eGFR (CKD-EPI 2020): 86 FREE T4: 0.8 TSH: 1.66 Lab Results - NONE FOUND No data available Exam date: AUG 27, 2024@06:51 Proc: CHEST 1 VIEW IMPRESSION TEXT: Mild cardiomegaly without pulmonary edema. READING PHYSICIAN: Aubrie Garcia 08/27/2024 7:29 AM REPORT TEXT: History: Ventricular tachycardia. Single view of the chest. Comparison: 05/20/2023. Findings: Lungs are clear. Mild cardiomegaly without pulmonary edema. Soft tissues are unremarkable. Atherosclerosis. Osseous structures demonstrate degenerative changes. III) ASSESSMENT AND PLAN 84 y/o with known H/O as per HPI. Presented to the ER due to chest pain and palpitations post sexual intercourse with his . Noted to be in monomorphic VT which converted with IV amiodarone, normal electrolytes. Known H/O Ischemic Cardiomyopathy with previusly mildy reduced EF to 45-50%. Underwent LHC without evidence of new lesions. EP consultation with recommendation for ICD/SUPERVISOR DETASSELING CREW-D sometime next week, continue Amiodarone with plans to transition to oral. #Monomophic VT #HFrEF( Now 20-25%) Ischemic Cardiomyopathy #CAD s/p Multiple Stents/ SLURRY BLENDER RPLS #Chronic Stable Angina #HTN #LBBB Plan: -Patient has not had any recent significant episodes of VT on telemetry -Stop IV amiodarone and transition to amiodarone 400 mg p.o. 3 times daily -TSH level is normal -Continue metoprolol succinate 25 BID -Continue lisinopril 20 mg daily -Crestor 40 mg daily -Please start spironolactone 25 mg daily -Continue Isosobride Mononitrate 120 mg daily/ Ranolazine 1000 mg bid -ASA 81 mg daily -ICD placement sometime next week by EP Staffed with attending physician Dr. Vazquez /santiago/ CALISTA ROCHE STOPPER MAKER HELPER Signed: 08/28/2024 17:43 /santiago/ KADEEM VAZQUEZ PHYSICIAN Cosigned: 08/29/2024 15:54 CALISTA ROCHE [facility] Aug 28, 2024 10:18 AM INTERNAL MEDICINE INPATIENT NOTE: LOCAL TITLE: CO-PC GENERAL MEDICINE (INPT) RESIDENT PHYSICIAN NO STANDARD TITLE: INTERNAL MEDICINE INPATIENT NOTE DATE OF NOTE: AUG 28, 2024@10:18 ENTRY DATE: AUG 28, 2024@10:18:54 AUTHOR: LEEANNE BARRIOS COSIGNER: CHANDU REYES URGENCY: STATUS: COMPLETED Progress note: AUG 28, 2024 NAME: ALIYAH COREY SSN/: [id number] Feb AGE: 84 SEX: MALE RACE: WHITE SUBJECTIVE The patient was seen in the AM on 08/28. He has no immediate concerns. Stated he felt well, and the chest pain has not returned. Cardiology service continuing to follow, planning ICD placement sometime next week, TBD. OBJECTIVE --- PHYSICAL EXAMINATION --- GENERAL: NAD HEENT: normocephalic CV: RRR, s1/s2, no murmurs, rubs, or gallops RESP: symmetrical expansion, CTA b/l ABD: non-distended, BS+ NEURO: AAOx3, no focal deficits EXT: no clubbing, cyanosis, or edema PSYCH: appropriate mood and affect --- VITAL SIGNS --- T 97.7 F [36.5 C] (08/27/2024 20:00) BP 138/67 (08/27/2024 20:00) P 51 (08/27/2024 20:00) RR 16 (08/27/2024 20:00) SPO2 95 % RA HT 67 in [170.2 cm] (09/26/2023 07:47) WT 87.582 kg (08/28/2024) --- LABS/DIAGNOSTIC --- LAB RESULTS FOR: AUG 28, 2024 WBC: 9.20 RBC: 4.23 HGB: 14.1 HCT: 39.6 MCV: 93.6 MCH: 33.3 MCHC: 35.6 RDW: 12.5 PLT: 174 MPV: 10.7 ALTERNATE LYMPHS: 28.9 MONOS, ABSOLUTE: 0.86 H EOSINO, ABSOLUTE: 0.05 BASO, ABSOLUTE: 0.02 GRANULOCYTES, ABSOLUTE: 5.55 GRANULOCYTE, ALTERNATE %: 60.5 MONOCYTE, ALTERNATE %: 9.4 EOS AUTO: 0.5 BASO AUTO: 0.2 LYMPH ABSOLUTE: 2.66 IMMATURE GRANULOCYTE ABSOLUTE: 0.05 IMMATURE GRANULOCYTE PERCENT: 0.5 GLUCOSE: 92 UREA NITROGEN: 13 CREATININE: 0.87 SODIUM: 138 POTASSIUM: 4.2 CALCIUM: 8.5 PROTEIN,TOTAL: 6.5 ALBUMIN: 3.7 BILIRUBIN,TOTAL: 0.7 SGOT: 24 SGPT: 9 CL: 109 H CARBONDI: 22 ALP: 51 eGFR (CKD-EPI 2020): 86 FREE T4: 0.8 TSH: 1.66 --- INPATIENT MEDICATIONS --- Active Inpatient Medications (excluding Supplies): Active Inpatient Medications Status 1) AMIODARONE 360MG PREMIX INJ INJ in AMIODARONE 360MG/ ACTIVE D5W 200 ML 1 mg/min x 6hrs @1 continue at 0.5mg/min (*1.8 MG/ML*) IV 2) AMLODIPINE TAB 10MG PO QAM ACTIVE 3) ASPIRIN TAB,CHEWABLE 81MG PO QDAY ACTIVE 4) CHOLECALCIFEROL (LOW DOSE VIT D3) TAB 25MCG PO QAM ACTIVE 5) CYANOCOBALAMIN TAB 1000MCG PO QAM ACTIVE 6) DEXTROSE 50%/WATER INJ,SOLN 50ML (25GM) IVP Q15MIN ACTIVE PRN Instructions too long. See order details for full text. 7) DEXTROSE LIQUID,ORAL 15GM PO Q15MIN PRN Instructions ACTIVE too long. See order details for full text. 8) GLUCAGON EMERGENCY INJ 1MG/1VIAL SQ Q15MIN PRN ACTIVE Instructions too long. See order details for full text. 9) HEPARIN 25,000 UNITS / 0.45% NACL INJ,SOLN in HEPARIN ACTIVE 25,000 UNITS/0.45%NACL 500 ML TITRATE@1 Instructions too long. See order details for full text. IV 10) HEPARIN INJ,SOLN 5000UNIT/1ML IVP Q8H PRN Anti-Xa ACTIVE <0.1 GIVE 40 units/kg, Anti-Xa 0.10 to 0.20, GIVE 20 units/kg, then per protocol 11) ISOSORBIDE MONONITRATE TAB,SA 120MG PO QDAY ACTIVE 12) LISINOPRIL TAB 10MG PO QAM ACTIVE 13) METOPROLOL SUCCINATE TAB,SA 25MG PO BID ACTIVE 14) NITROGLYCERIN TAB,SUBLINGUAL 0.4MG SL Q5MIN PRN ACTIVE NEEDED FOR CHEST PAIN. MAY REPEAT DOSE TWICE 15) OMEPRAZOLE CAP,EC 20MG PO QAM AC ACTIVE 16) RANOLAZINE TAB,SA 1000MG PO BID ACTIVE 17) ROSUVASTATIN TAB 40MG PO QHS ACTIVE 18) SODIUM CHLORIDE 0.9% PF SYR INJ 10mL IVP Q8H SALINE ACTIVE LOCK FLUSH 19) TAMSULOSIN CAP,ORAL 0.4MG PO QDAY ACTIVE RADIOLOGY all recent images reviewed Exam date: AUG 27, 2024@06:51 Proc: CHEST 1 VIEW IMPRESSION TEXT: Mild cardiomegaly without pulmonary edema. READING PHYSICIAN: Aubrie Garcia 08/27/2024 7:29 AM REPORT TEXT: History: Ventricular tachycardia. Single view of the chest. Comparison: 05/20/2023. Findings: Lungs are clear. Mild cardiomegaly without pulmonary edema. Soft tissues are unremarkable. Atherosclerosis. Osseous structures demonstrate degenerative changes. ASSESSMENT/PLAN Aliyah Corey is an 84-year-old male with PMH of CAD, chronic angina, HTN, HLD, likely ischemic cardiomyopathy, left bundle branch block, aortic regurgitation, sleep apnea, history of malignant melanoma, BPH who presents with chest pain on 08/27/2024. S/p amiodorone bolus in ED for ventricular tachycardia which converted back to sinus. Troponin on initial presentation benign, however increased to over 1000 by noon day of admission. Cardiology has been following since presntation to ED and is planning catheterization on 08/27. 24 hr plan: -ACS protocol, continue heparin drip -Continue amiodorone drip -S/p catheterization 08/27, no stenting -Cardiology following, planning SUPERVISOR [employer]AS[employer] CREW device implant next week, tentative Thursday 08/31 -Ordered TSH, PFTs with DCLO -Increased Metoprolol succinate to 25 mg PO BID -Continue home clopidogrel 75 mg PO daily -Medication changes as per cardiology #ACS, NSTEMI #Ventricular tachycardia #Monomophic VT -ACS protocol, continue heparin drip -Continue amiodorone drip -Continue lisinopril 10 mg PO daily -Continue rosuvastatin 40 mg qHS -Continue aspirin 81 mg PO daily -Continue Isosobride Mononitrate 120 mg PO daily -Continue Ranolazine 1000 mg PO BID -Cardiology following, planning SUPERVISOR DETASSELING [employer]W device implant next week, tentative Thursday 08/31 -Ordered TSH, PFTs with DLCO -Increased Metoprolol succinate to 25 mg PO BID #CAD #Chronic Stable Angina #Ischemic cardiomyopathy #Moderate aortic regurgitation #History of left bundle branch block -Continue home metoprolol succinate 25 mg PO qAM -Continue home Imdur 120 mg PO qAM #HTN -Continue home amlodipine 10 mg PO daily -Continue home lisinopril 10 mg PO qAM #HLD -Continue home rosuvastatin 40 mg qHS #BPH -Continue home tamsulosin 0.4 mg PO daily #ILEANA #History of malignant melanoma Diet: Heart Healthy Team: Team 2, ICU [id number] Code status: Full code DVT Prophylaxis: Heparin gtt Patient seen and staffed with Dr. Chandu Reyes /santiago/ WAQAR BARRIOS RESIDENT Signed: 08/29/2024 07:16 /santiago/ CHANDU REYES Resident Physician Cosigned: 08/29/2024 12:20 LEEANNE BARRIOS [facility] Aug 28, 2024 08:00 AM NURSING NOTE: LOCAL TITLE: [facility] SKIN INSPECTION/ASSESSMENT STANDARD TITLE: NURSING NOTE DATE OF NOTE: AUG 28, 2024@08:00 ENTRY DATE: AUG 29, 2024@11:26:23 AUTHOR: HANSA HARRISON EXP COSIGNER: URGENCY: STATUS: COMPLETED Assessment Type: SKIN REINSPECTION/REASSESSMENT SKIN INSPECTION: Skin Color: Usual for ethnicity Skin Temperature: Warm Skin Moisture: Normal Skin Turgor: Elastic (normal/immediate) Boris Skin Assessment: The patient's Boris Scale Score is 22. The patient is considered not at risk for development of pressure ulcers/injuries. Sensory perception -- ability to respond meaningfully to pressure-related discomfort No impairment. Moisture -- degree to which skin is exposed to moisture Rarely moist. Activity -- ability to change and control body position Walks frequently. Mobility -- ability to change and control body position Slightly limited. Nutrition -- usual food intake patterns Excellent. Friction and shear No apparent problem. INTERVENTIONS: No change in previous interventions as listed below Vaaes Pressure Injury Interventions 08/27/2024 Vaaes Pressure Injury Int Not Needed RISK FACTORS THAT INCREASE RISK FOR DEVELOPING PRESSURE INJURIES: The patient/resident has the following: Age over 75 Known vascular surgery or vascular disease Device(s): (nasogastric tubes, oxygen tubing, urinary catheters, cell phone etc.) Comment: call light, bp pulse ox ekg tubing, PIV x2 SKIN ALTERATIONS: Pressure Ulcer/Injury Documentation from the past year: No data available SKIN ALTERATIONS: Wound Documentation from the past year: Skin Assessment 08/27/2024 Skin Integrity - Wound SKIN INTEGRITY: Intact /santiago/ HANSA HARRISON REGISTERED NURSE Signed: 08/29/2024 11:30 HUNTERHANSA [facility] Aug 28, 2024 07:12 AM NURSING NOTE: LOCAL TITLE: CO-NURSING PROGRESS NOTE ICU/PCU STANDARD TITLE: NURSING NOTE DATE OF NOTE: AUG 28, 2024@07:12 ENTRY DATE: AUG 28, 2024@07:12:32 AUTHOR: RAHAT GASCA COSIGNER: URGENCY: STATUS: COMPLETED Report received and assumed care of patient at 19:30 he was resting in the bed with complaints of not being able to take his home meds to keep him on track with taking his medicine. I assured him that he was taking them and explained each drug. Reached out the night team, because his heartrate was in the mid to upper 30's, he was nonsystematic the night team changed the parameters. He is able to dress himself if the need was to arrive. He had a pressy good night, no issues or complaints. Please see BCMA, CPRS and ICCA for more information. /santiago/ RAHAT GASCA REGISTERED NURSE Signed: 08/28/2024 07:30 RAHAT GASCA [facility] Aug 27, 2024 10:40 PM NURSING NOTE: LOCAL TITLE: [facility] SKIN INSPECTION/ASSESSMENT STANDARD TITLE: NURSING NOTE DATE OF NOTE: AUG 27, 2024@22:40 ENTRY DATE: AUG 27, 2024@22:40:25 AUTHOR: RAHAT GASCA COSIGNER: URGENCY: STATUS: COMPLETED Assessment Type: SKIN REINSPECTION/REASSESSMENT SKIN INSPECTION: Skin Color: Usual for ethnicity Skin Temperature: Warm Skin Moisture: Normal Skin Turgor: Elastic (normal/immediate) Boris Skin Assessment: The patient's Boris Scale Score is 23. The patient is considered not at risk for development of pressure ulcers/injuries. Sensory perception -- ability to respond meaningfully to pressure-related discomfort No impairment. Moisture -- degree to which skin is exposed to moisture Rarely moist. Activity -- ability to change and control body position Walks frequently. Mobility -- ability to change and control body position No limitation. Nutrition -- usual food intake patterns Excellent. Friction and shear No apparent problem. INTERVENTIONS: No change in previous interventions as listed below 08/27/2024 Vaaes Pressure Injury Int Not Needed RISK FACTORS THAT INCREASE RISK FOR DEVELOPING PRESSURE INJURIES: The patient/resident has the following: Age over 75 Known vascular surgery or vascular disease Device(s): (nasogastric tubes, oxygen tubing, urinary catheters, cell phone etc.) Comment: PIV x2, Call light, BP EKG pulse ox tubing SKIN ALTERATIONS: Pressure Ulcer/Injury Documentation from the past year: No data available SKIN ALTERATIONS: Wound Documentation from the past year: No data available for: Skin Integrity - Wound Skin Integrity - Wound Second Skin Integrity - Wound Third Skin Integrity - Wound Fourth Skin Integrity - Wound Fifth Skin Integrity - Wound Additional SKIN INTEGRITY: Intact Incision and Flaps: Incision 1: Location: Left art site Stabilization: Elastic compression bandage Surrounding tissue: Intact Wound drainage none. Dressing type: Gauze Dressing activity: Changed Cleansed: CHG /es/ RAHAT GASCA REGISTERED NURSE Signed: 08/27/2024 22:44 RAHAT GASCA [facility] Aug 27, 2024 04:04 PM STOPPER MAKER HELPER NOTE: LOCAL TITLE: CO-STOPPER MAKER HELPER NOTE (D) STANDARD TITLE: STOPPER MAKER HELPER NOTE DATE OF NOTE: AUG 27, 2024@16:04 ENTRY DATE: AUG 27, 2024@16:05:22 AUTHOR: CAROL SARABIA EXP COSIGNER: KADEEM VAZQUEZ URGENCY: STATUS: COMPLETED CARDIOLOGY CONSULT NOTE ID: ALIYAH COREY 84 MALE Admission Date: Aug Admission Dx: VTACH, CHEST PAIN Admitting Physician: JEROME DOTY MUDDASSAR REASON FOR CONSULT:Ventricular Tachycardia HPI: This is a 84 year old MALE with PMH of CAD s/p PCI to mLAD, RCA x3, PDA, DI, known SLURRY BLENDER to RPLS, Chronic stable angina, HTN, HLD, LBBB, mild to mod AI and ILEANA. Presenting to the ER with chest pain and palpitations. Reported that post sexual intercourse with his this AM (4AM) he developed left sided chest pain with sob, also had palpitations, was unable to feel his pulse. Used a Pulse oxi to check his heart rate however device was unable to read thus he decided to seek medical attention. On presentation to the ER he was found to be in VT rates 190's, was given a bolus of Amiodarone which converted him to NSR. EKG Showing Monomorphic VT inferior axis, likely left sided based on morphology. Initial Trop wnl howeveer repeat uptrended to 1000. CXR Cardiomegaly without evidence of pulmonary vascular congestion. WBC 15/HB15/NTPROBNP 410 Started on Heparin drip, continued on IV Amiodarone load. Underwent Urgent LHC which did not show any acute lesions, SLURRY BLENDER of RPLS with collaterals. PAST MEDICAL HISTORY: Active Problem Coronary arteriosclerosis I25.10 01/17/2020 HENRI,ABIGAIL NICOLE History of placement of stent for coronary ar 01/17/2020 HENRI,ABIGAIL NICOLE Benign essential hypertension I10. 01/17/2020 HENRI,ABIGAIL NICOLE Benign prostatic hypertrophy with outflow obs 01/17/2020 HENRI,ABIGAIL NICOLE H/O: angina pectoris Z86.79 01/17/2020 HENRI,ABIGAIL NICOLE Hyperlipidemia E78.5 01/17/2020 HENRI,ABIGAIL NICOLE Aortic valve regurgitation I35.1 09/11/2020 [place] Current drinker Z72.89 04/04/2022 HENRI,ABIGAIL NICOLE Hiatal hernia K44.9 04/04/2022 HENRI,ABIGAIL NICOLE GERD - Gastro-Esophageal Reflux Disease (SCT 04/04/2022 HENRI,ABIGAIL NICOLE Constipation K59.00 04/04/2022 HENRI,ABIGAIL NICOLE Exposure to potentially hazardous substance Z 07/08/2023 HENRI,ABIGAIL NICOLE Difficulty in Walking, not elsewhere classifi 02/17/2024 HENRI,ABIGAIL NICOLE PAST SURGICAL HISTORY: SEP 26, 2023@08:59 Proc: PHACOEMULSIFICATION & ASPIRATION / LEFT ALLERGIES: Patient has answered NKA no hx of reaction to iodine or shellfish MEDS: Active Outpatient Medications (including Supplies): Active Outpatient Medications Status 1) AMLODIPINE BESYLATE 10MG TAB TAKE ONE TABLET BY MOUTH ACTIVE EVERY MORNING FOR HEART/BLOOD PRESSURE 2) CHOLECALCIF 25MCG (D3-1,000UNIT) TAB TAKE ONE TABLET ACTIVE BY MOUTH EVERY MORNING FOR VITAMIN D DEFICIENCY 3) CLOPIDOGREL BISULFATE 75MG TAB TAKE ONE TABLET BY ACTIVE (S) MOUTH ONCE A DAY TO PREVENT BLOOD CLOTS 4) CYANOCOBALAMIN 1000MCG TAB TAKE ONE TABLET BY MOUTH ACTIVE EVERY MORNING FOR VITAMIN DEFICIENCY 5) ISOSORBIDE MONONITRATE 120MG SA TAB TAKE ONE TABLET ACTIVE BY MOUTH ONCE A DAY TO PREVENT CHEST PAIN TAKE ON EMPTY STOMACH. SWALLOW WHOLE. DO NOT CRUSH OR CHEW. 6) LISINOPRIL 20MG TAB TAKE ONE-HALF TABLET BY MOUTH ACTIVE EVERY MORNING FOR HEART OR HIGH BLOOD PRESSURE 7) METOPROLOL SUCCINATE 50MG SA TAB TAKE ONE-HALF TABLET ACTIVE BY MOUTH EVERY MORNING FOR BLOOD PRESSURE SWALLOW WHOLE, DO NOT CRUSH OR CHEW (TABLETS MAY BE CUT IN HALF). 8) NITROGLYCERIN 0.4MG SL TAB DISSOLVE ONE TABLET UNDER ACTIVE THE TONGUE EVERY MORNING NEEDED FOR CHEST PAIN. IF NO IMPROVEMENT AFTER FIRST DOSE CALL 9-1-1. MAY TAKE 2 ADDITIONAL DOSES, 5 MINUTES APART. 9) OMEPRAZOLE 20MG EC CAP TAKE ONE CAPSULE BY MOUTH ACTIVE EVERY MORNING FOR GERD - TAKE WITH A FULL GLASS OF WATER 30 MINUTES BEFORE FOOD OR OTHER DRINKS 10) RANOLAZINE 1000MG SA TAB TAKE ONE TABLET BY MOUTH TWO ACTIVE TIMES A DAY FOR HEART/PREVENT CHEST PAIN, *SWALLOW WHOLE- DO NOT CRUSH,BREAK OR CHEW* 11) ROSUVASTATIN CA 40MG TAB TAKE ONE TABLET BY MOUTH AT ACTIVE BEDTIME FOR CHOLESTEROL. REPORT ANY UNEXPLAINED MUSCLE PAIN OR WEAKNESS TO YOUR DOCTOR. 12) TAMSULOSIN HCL 0.4MG CAP TAKE ONE CAPSULE BY MOUTH ACTIVE ONCE A DAY FOR PROSTATE TAKE WITH FOOD Active Non-VA Medications Status 1) Non-VA ASPIRIN 81MG EC TAB 81MG MOUTH ONCE A DAY ACTIVE 13 Total Medications Active Inpatient Medications (excluding Supplies): Active Inpatient Medications Status 1) AMIODARONE 360MG PREMIX INJ INJ in AMIODARONE 360MG/ ACTIVE D5W 200 ML 1 mg/min x 6hrs @1 continue at 0.5mg/min (*1.8 MG/ML*) IV 2) AMLODIPINE TAB 10MG PO QAM ACTIVE 3) CHOLECALCIFEROL (LOW DOSE VIT D3) TAB 25MCG PO QAM ACTIVE 4) CYANOCOBALAMIN TAB 1000MCG PO QAM ACTIVE 5) DEXTROSE 50%/WATER INJ,SOLN 50ML (25GM) IVP Q15MIN ACTIVE PRN Instructions too long. See order details for full text. 6) DEXTROSE LIQUID,ORAL 15GM PO Q15MIN PRN Instructions ACTIVE too long. See order details for full text. 7) GLUCAGON EMERGENCY INJ 1MG/1VIAL SQ Q15MIN PRN ACTIVE Instructions too long. See order details for full text. 8) HEPARIN 25,000 UNITS / 0.45% NACL INJ,SOLN in HEPARIN ACTIVE 25,000 UNITS/0.45%NACL 500 ML TITRATE@1 Instructions too long. See order details for full text. IV 9) HEPARIN INJ,SOLN 5000UNIT/1ML IVP Q8H PRN Anti-Xa ACTIVE <0.1 GIVE 40 units/kg, Anti-Xa 0.10 to 0.20, GIVE 20 units/kg, then per protocol 10) ISOSORBIDE MONONITRATE TAB,SA 120MG PO QDAY ACTIVE 11) LISINOPRIL TAB 10MG PO QAM ACTIVE 12) METOPROLOL SUCCINATE TAB,SA 25MG PO QAM ACTIVE 13) NITROGLYCERIN TAB,SUBLINGUAL 0.4MG SL Q5MIN PRN ACTIVE NEEDED FOR CHEST PAIN. MAY REPEAT DOSE TWICE 14) OMEPRAZOLE CAP,EC 20MG PO QAM AC ACTIVE 15) RANOLAZINE TAB,SA 1000MG PO BID ACTIVE 16) ROSUVASTATIN TAB 40MG PO QHS ACTIVE 17) SODIUM CHLORIDE 0.9% PF SYR INJ 10mL IVP Q8H SALINE ACTIVE LOCK FLUSH 18) TAMSULOSIN CAP,ORAL 0.4MG PO QDAY ACTIVE Compared newly ordered medications and medication changes to active medications and non-VA medications, and then reviewed medications with patient and/or caregiver. All discrepancies noted and reconciled. Patients, or caregivers, was provided with reconciled medications list and advised to provide to all non [facility] providers. Potential adverse reactions of new medications were discussed with the patient. ROS: All systems reviewed, negative unless otherwise specified above. PHYSICAL EXAM: Date Vital Measurement Qualifiers 08/27/2024 08:30 Pulse 65 Respir 21 BP 138/79 Pain 0 POx (L/Min)(%) 98 Room Air 08/27/2024 08:30 Temp F (C) 96.8 (36.0) Wt lbs (kg)[BMI] 195.99 (88.90)[31*] GENERAL: Appears of stated age NECK: No JVD. CVS: Regular rate and rhythm. Normal S1/S2. No murmurs, clicks, gallops or rubs. Pulses 2+. RESPIRATORY: BS CTAB. No accessory muscle use noted. Chest excursion symmetrical. ABDOMEN: S/NT/ND. Bowel sounds normoactive. EXTREMITIES: No C/C/E. Pulses are present and equal in 4 extremities. MSK: No chest wall tenderness. NEURO: Alert and oriented to person, time, place, and circumstance. LABS/DIAGNOSTICS: CHOL: 120 (08/22/23 09:44) HDL: 37 (08/22/23 09:44) LDL-RIAN: 66 (08/22/23 09:44) TGL: 87 (08/22/23 09:44) Lab Results - NONE FOUND Lab Results - NONE FOUND Lab Results - NONE FOUND 1.0 INR (08/27/2024 06:40) 11.4 Sec (08/27/2024 06:40) 29.8 Sec (08/27/2024 06:40) LAB RESULTS FOR: AUG 27, 2024 ACT. CLOTTING TIME: 153 H TROP-HS-CO: 1017 H* MRSA SCREEN: Negative URINE COLOR: Light-Yellow URINE APPEARANCE: Clear URINE PROTEIN: Negative URINE LEUKOCYTE ESTERASE: Negative URINE NITROGEN: Negative URINE BLOOD: Negative URINE KETONES: Negative URINE pH: 7.0 URINE SPECIFIC GRAVITY: 1.011 URINE BILIRUBIN: Negative URINE UROBILINOGEN: Normal URINE GLUCOSE: Negative ANTI-Xa (CO): <0.04 INR EK: 1.0 PT(03/09): 11.4 APTT ACL: 29.8 WBC: 15.70 H RBC: 4.80 HGB: 15.9 HCT: 44.9 MCV: 93.5 MCH: 33.1 MCHC: 35.4 RDW: 12.5 PLT: 236 MPV: 11.1 SEGS: 55.6 LYMPHS: 13.9 MONOCYTES: 5.2 BASO: 0.9 MYELO: 0.9 ANISOCYTOSIS: 1+ ATYPICAL LYMPHOCYTES: 23.5 PLT (ESTM)-CO: Adequate NEUTROPHIL, ABSOLUTE(M): 8.73 H IMMATURE GRANS, ABSOLUTE(M): 0.14 H LYMPHOCYTES, ABSOLUTE(M): 5.87 H MONOCYTES, ABSOLUTE(M): 0.82 H BASOPHILS, ABS(M): 0.14 PATHOLOGIST REVIEW: comment NTPROBNP: 410 GLUCOSE: 156 H UREA NITROGEN: 17 CREATININE: 1.14 SODIUM: 140 POTASSIUM: 4.1 CALCIUM: 9.4 PROTEIN,TOTAL: 8.0 ALBUMIN: 4.6 BILIRUBIN,TOTAL: 0.7 SGOT: 19 SGPT: 11 CL: 108 H CARBONDI: 21 L ALP: 68 eGFR (CKD-EPI 2020): 64 TROP-HS-CO: 15 5.4 % (08/22/2023 09:44) ===== EKG ===== ===== IMAGING ===== MYOCARDIAL PERFUSION SCAN: XMYOCARDIAL PERFUSION STUDY WITH WALL MOTION - NONE FOUND Holter: [] Echocardiogram: ECHO HISTORY Jul@15:05 MAR @15:30 Cardiac cath: SPN - Selected Prog Notes No data available for: CO-CARDIOLOGY ECHOCARDIOGRAPHY CONSULT LABORATORY REPORT CO-CARDIOLOGY CARDIAC CATHETERIZATION LAB CONSULT REPORT CO-CARDIOLOGY CARDIAC CATHETERIZATION LABORATORY REPORT CARDIOLOGY-CART CATH/PROCEDURE REPORT (CO) CARDIOLOGY-CART PCI REPORT (CO) ASSESSMENT & PLAN: Seeing this 84 y/o with known H/O as per HPI. Presented to the ER due to chest pain and palpitations post sexual intercourse with his . Noted to be in monomorphic VT which converted with IV amiodarone, normal electrolytes. Known H/O Ischemic Cardiomyopathy with previusly mildy reduced EF to 45-50%. Underwent LHC today without evidence of new lesions. EP consultation today with recommendation for ICD/SUPERVISOR DETASSELING CREW-D sometime next week, continue AMiodarone with plans to transition to oral. #Monomophic VT #HFrEF( Now 20-25%) Ischemic Cardiomyopathy #CAD s/p Multiple Stents/ SLURRY BLENDER RPLS #Chronic Stable Angina #HTN #LBBB Plan: - Continue Amiodarone IV for now, will plans to transition to oral in the AM if no events/reoccurance of sustained VT - Please obtain TSH/PFT's with [facility] - Can increase his Metoprolol succinate to 25 BID - Resume Lisinopril 20 mg daily - Crestor 40 mg daily - Consider addition of Spironolactone 12.5 mg daily - Continue Isosobride Mononitrate 120 mg daily/ Ranolazine 1000 mg bid - ASA 81 mg daily - ICD placement sometime next week by KETTY Sarabia PGY-4 Cardiovascular Disease Fellow Staffed with attending physician /santiago/ CAROL SARABIA FELLOW-CO Signed: 08/27/2024 16:20 /santiago/ KADEEM VAZQUEZ PHYSICIAN Cosigned: 08/29/2024 15:54 CAROL SARABIA [facility] Aug 27, 2024 02:30 PM ADDENDUM: LOCAL TITLE: Addendum STANDARD TITLE: ADDENDUM DATE OF NOTE: AUG 27, 2024@14:30:53 ENTRY DATE: AUG 27, 2024@14:30:55 AUTHOR: EULALIA ROQUE COSIGNER: URGENCY: STATUS: COMPLETED Inpatient cardiac electrophysiology consultation requested by cardiology consultative service for further evaluation of a wide QRS tachycardia. Chart reviewed and patient examined 08/27/2024. I agree with Dr. Supa Case and physical. 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 EKG upon presentation remarkable for wide QRS tachycardia (cycle length 280 ms) of right bundle morphology, positive concordance, and inferior axis. Prior EKGs remarkable for sinus rhythm and left bundle branch block. Echocardiogram last month remarkable for mild global left ventricular hypokinesis, moderate inferior hypokinesis, and ejection fraction 45 to 50%. Preliminarily I am told echocardiogram this hospitalization with ejection fraction less than 35%. Laboratory data remarkable for troponin maximum so far 1000, potassium 4.1, creatinine 1.14, normal liver transaminases, white blood cell count 16,000, and brain natruretic peptide 410. IMPRESSION 1. Sustained monomorphic VT. Cycle length 280 ms, right bundle morphology, inferior axis, positive concordance. 2. CAD with past history of multiple PCI's. Maintained on Plavix. 3. Left bundle branch block. 4. Aortic insufficiency. Previously mild to moderate. 5. By report, new fall in left ventricular function. Potentially secondary to prolonged duration of sustained VT. RECOMMENDATION 1. Await formal overread of today's transthoracic echo. 2. Cardiac catheterization pending. 3. If does well overnight, would transition from IV to oral amiodarone. In view of amiodarone's potential long-term administration, please obtain complete thyroid panel and outpatient PFTs with [facility] [facility]. 4. Repeat limited echo on Friday. 5. I discussed with patient probable future benefit of ICD pending clinical course. Will require at very least dual-chamber ICD and possibly SUPERVISOR DETASSELING CREW ICD pending repeat limited echo on Friday. I discussed the operative procedure, benefits, and risks at length with patient. 6. Would reinitiate Toprol. 7. Discussed with Dr. Vazquez. 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 Patient presented to the ED complaining of chest pain. Patient reports that after having intercourse this morning, he got out of bed at 5 AM and began feeling lightheaded and besgan having arm pain moving to his chest similar to prior chronic anginal pain he has had. Symptoms persisted prompting him to come to the hospital for evaluation. Patient was brought in by his . While in the ED, was noted to be in VT. Amiodarone bolus was initiated and patient converted. Patient reports resolution of his chest pain at that time. Patient denies any known allergy to antibiotics, no prior chest surgery. He currently takes plavix. REVIEW OF SYSTEMS: All systems reviewed and negative except as documented above in HPI. PAST MEDICAL HISTORY: Active Problem Coronary arteriosclerosis History of placement of stent for coronary artery disease Benign essential hypertension Benign prostatic hypertrophy with outflow obstruction H/O: angina pectoris Hyperlipidemia Aortic valve regurgitation Current drinker Hiatal hernia GERD - Gastro-Esophageal Reflux Disease ([facility] [id number]) Constipation Exposure to potentially hazardous substance Difficulty in Walking, not elsewhere classified PAST SURGICAL HISTORY: JUN 12, 1992@10:00 Proc: L[facility]COR JUN 21, 1992@09:00 Proc: [facility] APR 27, 2021@11:37 Proc: WIDE LOCAL EXCISION OF UPPER BACK MELANOMA WITH SNETINAL LYMPH NOSE BIOPSY AUG 18, 2023@13:46 Proc: RIGHT PHACOEMULSIFICATION AND ASPIRATION SEP 26, 2023@08:59 Proc: PHACOEMULSIFICATION & ASPIRATION / LEFT ADMISSIONS: AUG 27, 2024@08:45:50 [place]az: ICU PCU MDX: VTACH, CHEST PAIN SOCIAL HISTORY: Marital Status: LIVING ARRANGEMENT: 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 [employer] Period of Service: (Jul to Dec) TOBACCO: ALCOHOL: ILLICIT DRUGS: FAMILY HISTORY: ACTIVE MEDS: Active Outpatient Medications (including Supplies): Active Outpatient Medications Status 1) AMLODIPINE BESYLATE 10MG TAB TAKE ONE TABLET BY MOUTH ACTIVE EVERY MORNING FOR HEART/BLOOD PRESSURE 2) CHOLECALCIF 25MCG (D3-1,000UNIT) TAB TAKE ONE TABLET ACTIVE BY MOUTH EVERY MORNING FOR VITAMIN D DEFICIENCY 3) CLOPIDOGREL BISULFATE 75MG TAB TAKE ONE TABLET BY ACTIVE (S) MOUTH ONCE A DAY TO PREVENT BLOOD CLOTS 4) CYANOCOBALAMIN 1000MCG TAB TAKE ONE TABLET BY MOUTH ACTIVE EVERY MORNING FOR VITAMIN DEFICIENCY 5) ISOSORBIDE MONONITRATE 120MG SA TAB TAKE ONE TABLET ACTIVE BY MOUTH ONCE A DAY TO PREVENT CHEST PAIN TAKE ON EMPTY STOMACH. SWALLOW WHOLE. DO NOT CRUSH OR CHEW. 6) LISINOPRIL 20MG TAB TAKE ONE-HALF TABLET BY MOUTH ACTIVE EVERY MORNING FOR HEART OR HIGH BLOOD PRESSURE 7) METOPROLOL SUCCINATE 50MG SA TAB TAKE ONE-HALF TABLET ACTIVE BY MOUTH EVERY MORNING FOR BLOOD PRESSURE SWALLOW WHOLE, DO NOT CRUSH OR CHEW (TABLETS MAY BE CUT IN HALF). 8) NITROGLYCERIN 0.4MG SL TAB DISSOLVE ONE TABLET UNDER ACTIVE THE TONGUE EVERY MORNING NEEDED FOR CHEST PAIN. IF NO IMPROVEMENT AFTER FIRST DOSE CALL 9-1-1. MAY TAKE 2 ADDITIONAL DOSES, 5 MINUTES APART. 9) OMEPRAZOLE 20MG EC CAP TAKE ONE CAPSULE BY MOUTH ACTIVE EVERY MORNING FOR GERD - TAKE WITH A FULL GLASS OF WATER 30 MINUTES BEFORE FOOD OR OTHER DRINKS 10) RANOLAZINE 1000MG SA TAB TAKE ONE TABLET BY MOUTH TWO ACTIVE TIMES A DAY FOR HEART/PREVENT CHEST PAIN, *SWALLOW WHOLE- DO NOT CRUSH,BREAK OR CHEW* 11) ROSUVASTATIN CA 40MG TAB TAKE ONE TABLET BY MOUTH AT ACTIVE BEDTIME FOR CHOLESTEROL. REPORT ANY UNEXPLAINED MUSCLE PAIN OR WEAKNESS TO YOUR DOCTOR. 12) TAMSULOSIN HCL 0.4MG CAP TAKE ONE CAPSULE BY MOUTH ACTIVE ONCE A DAY FOR PROSTATE TAKE WITH FOOD Active Non-VA Medications Status 1) Non-VA ASPIRIN 81MG EC TAB 81MG MOUTH ONCE A DAY ACTIVE 13 Total Medications Active Inpatient Medications (excluding Supplies): Active Inpatient Medications Status 1) AMIODARONE 360MG PREMIX INJ INJ in AMIODARONE 360MG/ ACTIVE D5W 200 ML 1 mg/min x 6hrs @1 continue at 0.5mg/min (*1.8 MG/ML*) IV 2) AMLODIPINE TAB 10MG PO QAM ACTIVE 3) CHOLECALCIFEROL (LOW DOSE VIT D3) TAB 25MCG PO QAM ACTIVE 4) CYANOCOBALAMIN TAB 1000MCG PO QAM ACTIVE 5) DEXTROSE 50%/WATER INJ,SOLN 50ML (25GM) IVP Q15MIN ACTIVE PRN Instructions too long. See order details for full text. 6) DEXTROSE LIQUID,ORAL 15GM PO Q15MIN PRN Instructions ACTIVE too long. See order details for full text. 7) GLUCAGON EMERGENCY INJ 1MG/1VIAL SQ Q15MIN PRN ACTIVE Instructions too long. See order details for full text. 8) HEPARIN 25,000 UNITS / 0.45% NACL INJ,SOLN in HEPARIN ACTIVE 25,000 UNITS/0.45%NACL 500 ML TITRATE@1 Instructions too long. See order details for full text. IV 9) HEPARIN INJ,SOLN 5000UNIT/1ML IVP Q8H PRN Anti-Xa ACTIVE <0.1 GIVE 40 units/kg, Anti-Xa 0.10 to 0.20, GIVE 20 units/kg, then per protocol 10) ISOSORBIDE MONONITRATE TAB,SA 120MG PO QDAY ACTIVE 11) LISINOPRIL TAB 10MG PO QAM ACTIVE 12) METOPROLOL SUCCINATE TAB,SA 25MG PO QAM ACTIVE 13) NITROGLYCERIN TAB,SUBLINGUAL 0.4MG SL Q5MIN PRN ACTIVE NEEDED FOR CHEST PAIN. MAY REPEAT DOSE TWICE 14) OMEPRAZOLE CAP,EC 20MG PO QAM AC ACTIVE 15) RANOLAZINE TAB,SA 1000MG PO BID ACTIVE 16) ROSUVASTATIN TAB 40MG PO QHS ACTIVE 17) SODIUM CHLORIDE 0.9% PF SYR INJ 10mL IVP Q8H SALINE ACTIVE LOCK FLUSH 18) TAMSULOSIN CAP,ORAL 0.4MG PO QDAY ACTIVE ALLERGIES: Patient has answered NKA PHYSICAL EXAM: DATE/TIME TEMP PULSE RESP BP PAIN WEIGHT PUL OX 08/27/24 @ 0830 65 21 138/79 0 98 08/27/24 @ 0830 96.8 68 21 135/74 0 195.99 97 08/27/24 @ 0819 98.6 0 08/27/24 @ 0815 74 18 135/71 99 GENERAL: Alert and oriented x3, no acute distress. HEENT: PERRLA, EOMI. Oral mucosa pink and moist. HEART: Regular rate and rhythm. Normal S1,S2. No murmurs. LUNGS: Non-labored respirations. Lungs clear to auscultation. ABDOMEN: Soft, nontender, nondistended. Bowel sounds present. EXTREMITIES: No peripheral edema. Peripheral pulses palpable. NEURO: No focal deficits. CNII-XII grossly intact. PSYCH: Cooperative. Appropriate mood and affect. LABS: LAB RESULTS FOR: AUG 27, 2024 TROP-HS-CO: 1017 H* MRSA SCREEN: Negative URINE COLOR: Light-Yellow URINE APPEARANCE: Clear URINE PROTEIN: Negative URINE LEUKOCYTE ESTERASE: Negative URINE NITROGEN: Negative URINE BLOOD: Negative URINE KETONES: Negative URINE pH: 7.0 URINE SPECIFIC GRAVITY: 1.011 URINE BILIRUBIN: Negative URINE UROBILINOGEN: Normal URINE GLUCOSE: Negative ANTI-Xa (CO): <0.04 INR EK: 1.0 PT(03/09): 11.4 APTT ACL: 29.8 WBC: 15.70 H RBC: 4.80 HGB: 15.9 HCT: 44.9 MCV: 93.5 MCH: 33.1 MCHC: 35.4 RDW: 12.5 PLT: 236 MPV: 11.1 SEGS: 55.6 LYMPHS: 13.9 MONOCYTES: 5.2 BASO: 0.9 MYELO: 0.9 ANISOCYTOSIS: 1+ ATYPICAL LYMPHOCYTES: 23.5 PLT (ESTM)-CO: Adequate NEUTROPHIL, ABSOLUTE(M): 8.73 H IMMATURE GRANS, ABSOLUTE(M): 0.14 H LYMPHOCYTES, ABSOLUTE(M): 5.87 H MONOCYTES, ABSOLUTE(M): 0.82 H BASOPHILS, ABS(M): 0.14 PATHOLOGIST REVIEW: comment NTPROBNP: 410 GLUCOSE: 156 H UREA NITROGEN: 17 CREATININE: 1.14 SODIUM: 140 POTASSIUM: 4.1 CALCIUM: 9.4 PROTEIN,TOTAL: 8.0 ALBUMIN: 4.6 BILIRUBIN,TOTAL: 0.7 SGOT: 19 SGPT: 11 CL: 108 H CARBONDI: 21 L ALP: 68 eGFR (CKD-EPI 2020): 64 TROP-HS-CO: 15 AA RADIOLOGY: Exam date: AUG 27, 2024@06:51 Proc: CHEST 1 VIEW IMPRESSION TEXT: Mild cardiomegaly without pulmonary edema. READING PHYSICIAN: Aubrie Garcia 08/27/2024 7:29 AM REPORT TEXT: History: Ventricular tachycardia. Single view of the chest. Comparison: 05/20/2023. Findings: Lungs are clear. Mild cardiomegaly without pulmonary edema. Soft tissues are unremarkable. Atherosclerosis. Osseous structures demonstrate degenerative changes. ASSESSMENT AND PLAN: 1. 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 - Terminated with amiodarone - Resume home metoprolol 25 mg - Pending coronary angiogram - Discussed options for further management including ICD implantation vs. Lifevest. - Limited echo preliminarily suggests 20-25% EF, recommend repeat limited echocardiogram for Friday as reduction is possibly due to stunning. - Please obtain Thyroid panel, PFTs with diffuse capacity - Staffed with Dr. Roque /santiago/ WILL COWART FELLOW-CO Signed: 08/27/2024 14:23 Receipt Acknowledged By: 08/27/2024 14:28 /santiago/ EULALIA ROQUE PHYSICIAN 08/28/2024 23:21 /santiago/ SANDRA MOSLEY PHYSICIAN 08/30/2024 ADDENDUM STATUS: COMPLETED ICD planned for 08/31 ~ 11:[address] Almanza (dual vs SUPERVISOR DETASSELING CREW). phlebotomist lab assistant/[employer] alerted. /santiago/ TERRELL GUO Nurse Practitioner Signed: 08/30/2024 10:40 Receipt Acknowledged By: * AWAITING SIGNATURE * KADEEM VAZQUEZ 08/30/2024 11:48 /santiago/ EULALIA ROQUE PHYSICIAN EULALIA ROQUE [facility] Aug 27, 2024 01:48 PM CONSENT: LOCAL TITLE: CONSENT CLINICAL IMED STANDARD TITLE: CONSENT DATE OF NOTE: AUG 27, 2024@13:48:21 ENTRY DATE: AUG 27, 2024@13:48:27 AUTHOR: FABIO DEAN EXP COSIGNER: URGENCY: STATUS: COMPLETED VistA Imaging - Scanned Document Signature Informed Consent for Heart - Cardiac Catheterization with Possible PCI (Cardiac Catheterization with Possible Percutaneous Coronary Intervention (PCI)) 1. Anatomical Location: See description of treatment/procedure 2. Informed consent was obtained at 1:46 PM on 08/27/24. The full consent document can be accessed through Call Loop. 3. Patient name: ALIYAH COREY 4. The patient HAS decision-making capacity. 5. Surrogate (if applicable): 6. Reason for the treatment (diagnosis, condition, or indication): To diagnose and treat conditions that affect your heart and coronary arteries. 7. Treatment/procedure: This procedure involves using a catheter to diagnose problems in your heart and coronary arteries. A catheter is a long, thin, flexible tube. It is inserted through your skin into a blood vessel in your leg (groin area), arm, and/or neck. It is then guided to the heart with special x-rays called fluoroscopy. Your doctor can use the catheter to do several tests on your heart and open blocked arteries, if needed. Your doctor may need to look at only one or both sides (arterial and venous sides), of your heart. To look at both sides, catheters must be placed into an artery and a vein. Your doctor may use more than one catheter to complete the test. You may be given medicine to help you relax. Your provider will put an IV (small plastic tube) into a vein. This is usually in your arm. This may be used to give you fluids or medicines during the procedure. Your vital signs will be closely monitored during this procedure. Your doctor will inject a local anesthetic to numb the area. Your doctor will then insert a needle through your skin. If necessary, your doctor may make a small incision through your skin to access the blood vessel. Your doctor will insert an introducer over the needle into the blood vessel. Your doctor will then insert a guide wire or catheter through the introducer. Your doctor will use X-ray to see and direct the catheter(s) to appropriate positions. Your doctor may use intravascular ultrasound. This uses high frequency sound waves to take pictures of your heart and arteries during the test. To evaluate the heart arteries, contrast will be injected and an x-ray movie will be taken. Pressures in the heart can also be recorded. Depending on the findings of the diagnostic tests, your doctor may perform any of the following interventions: * Thrombolysis. This involves breaking up a clot or dissolving it. Your provider may use special tools, chemicals, or a combination of methods. * Angioplasty. This involves using an inflatable balloon on the tip of the catheter. It is used to reopen a narrowing in one or more of the coronary arteries. * Stenting. A stent is a metal straw. It is placed into the vessel after angioplasty to help keep the vessel open. It remains in the wall of the artery. * Atherectomy. This involves using a specialized catheter. It is used to cut away and remove plaque from the inside of a blood vessel. * Thrombectomy. This involves using a specialized catheter with suction. It is used to remove blood clot from the inside of a blood vessel. Your doctor may close the cut or form a clot using stitches, clip, plug material, or by holding pressure to the area. This may be absorbed over time or it may remain permanently. A pressure dressing will be applied to prevent bleeding. 8. Moderate sedation will be used. Medications will be administered to decrease anxiety and discomfort during the treatment/procedure. These medications will be administered by a qualified practitioner. Patient response to some of these medications varies. Patients are expected to remain aware and responsive during the treatment or procedure. Minor risks of moderate sedation include temporary amnesia or forgetfulness and drowsiness. Moderate sedation can interfere with your ability to drive, operate machinery, or make important decisions for up to 24 hours. Medications used for moderate sedation can cause allergic reactions, respiratory depression (this is when your breathing slows down and may stop), low blood pressure, and a slow or irregular heart beat. In rare instances these complications can cause . Tell your health care team if you do not want to receive moderate sedation. 9. Consent to Blood Products (if applicable): I CONSENT to the use of blood products during this treatment/procedure if they are needed. I understand that the benefit of blood products is that they may improve my overall condition or save my life. I understand that my consent for use of blood products is valid while I recover from the treatment/procedure. My provider will determine when this recovery period ends. If this consent form expires, my treatment plan changes, or if blood products are needed for a reason that is unrelated to this treatment/procedure, I will be asked again for my consent for use of blood products. I understand that common risks of using blood products include (but are not limited to) infection or irritation where the needle is placed, fever, chills, and skin rashes. Other rare but more serious complications may occur such as allergic reactions, heart failure due to fluid overload, acute pulmonary edema (fluid leaking into the lungs), shock, or . I also understand that transfusions of blood or blood products involve a small risk of transmission of diseases such as Hepatitis B (1 in 137,000), Hepatitis C (1 in 1,000,000), and HIV/AIDS (1 in 1,900,000). There is also a small risk of bacterial infection when blood platelets are transfused. Alternatives to blood or blood products may be available if my health, time, and procedure permit. These alternatives may include auto-donation (using my own previously donated blood) and intra-operative salvage (my own blood collected during surgery). In addition, medications may be used to reduce the need for blood products. 10. Practitioner obtaining consent: Damari Mayfield 11. Supervising practitioner: Jaleel Nathan MD 12. Practitioner(s) performing or supervising treatment/procedure (if not listed above): 13. Witness Name(s): 14. Comments: SCANNED DOCUMENT SIGNATURE NOT REQUIRED Electronically Filed: 08/27/2024 by: FABIO ALVA [facility] Aug 27, 2024 01:32 PM CARDIOLOGY CONSULT: LOCAL TITLE: CO-CARDIO EP CONSULT NOTE STANDARD TITLE: CARDIOLOGY CONSULT DATE OF NOTE: AUG 27, 2024@13:32 ENTRY DATE: AUG 27, 2024@13:33:14 AUTHOR: WILL COWART COSIGNER: URGENCY: STATUS: COMPLETED CO-CARDIO EP CONSULT NOTE Has ADDENDA CARDIOLOGY CONSULT NOTE Name: TEQUILAALIYAHKOBE NEVILLE SSN: [id number] Care Team: CO-BTW PACT *PARMINDER* Reason for Consult: VT HISTORY OF PRESENT ILLNESS: Patient is an 84 year old male with a past medical history of HTN, HLD, LBBB, CAD (prior to PCI to mLAD, RCA x3, PDA, diag 1 with SLURRY BLENDER of RPLS), ICM, 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 Patient presented to the ED complaining of chest pain. Patient reports that after having intercourse this morning, he got out of bed at 5 AM and began feeling lightheaded and besgan having arm pain moving to his chest similar to prior chronic anginal pain he has had. Symptoms persisted prompting him to come to the hospital for evaluation. Patient was brought in by his . While in the ED, was noted to be in VT. Amiodarone bolus was initiated and patient converted. Patient reports resolution of his chest pain at that time. Patient denies any known allergy to antibiotics, no prior chest surgery. He currently takes plavix. REVIEW OF SYSTEMS: All systems reviewed and negative except as documented above in HPI. PAST MEDICAL HISTORY: Active Problem Coronary arteriosclerosis History of placement of stent for coronary artery disease Benign essential hypertension Benign prostatic hypertrophy with outflow obstruction H/O: angina pectoris Hyperlipidemia Aortic valve regurgitation Current drinker Hiatal hernia GERD - Gastro-Esophageal Reflux Disease ([facility] [id number]) Constipation Exposure to potentially hazardous substance Difficulty in Walking, not elsewhere classified PAST SURGICAL HISTORY: JUN 12, 1992@10:00 Proc: L&COR JUN 21, 1992@09:00 Proc: [facility] APR 27, 2021@11:37 Proc: WIDE LOCAL EXCISION OF UPPER BACK MELANOMA WITH SNETINAL LYMPH NOSE BIOPSY AUG 18, 2023@13:46 Proc: RIGHT PHACOEMULSIFICATION AND ASPIRATION SEP 26, 2023@08:59 Proc: PHACOEMULSIFICATION & ASPIRATION / LEFT ADMISSIONS: AUG 27, 2024@08:45:50 [place]: ICU PCU MDX: VTACH, CHEST PAIN SOCIAL HISTORY: Marital Status: LIVING ARRANGEMENT: 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 Period of Service: (Jul to Dec) TOBACCO: ALCOHOL: ILLICIT DRUGS: FAMILY HISTORY: ACTIVE MEDS: Active Outpatient Medications (including Supplies): Active Outpatient Medications Status 1) AMLODIPINE BESYLATE 10MG TAB TAKE ONE TABLET BY MOUTH ACTIVE EVERY MORNING FOR HEART/BLOOD PRESSURE 2) CHOLECALCIF 25MCG (D3-1,000UNIT) TAB TAKE ONE TABLET ACTIVE BY MOUTH EVERY MORNING FOR VITAMIN D DEFICIENCY 3) CLOPIDOGREL BISULFATE 75MG TAB TAKE ONE TABLET BY ACTIVE (S) MOUTH ONCE A DAY TO PREVENT BLOOD CLOTS 4) CYANOCOBALAMIN 1000MCG TAB TAKE ONE TABLET BY MOUTH ACTIVE EVERY MORNING FOR VITAMIN DEFICIENCY 5) ISOSORBIDE MONONITRATE 120MG SA TAB TAKE ONE TABLET ACTIVE BY MOUTH ONCE A DAY TO PREVENT CHEST PAIN TAKE ON EMPTY STOMACH. SWALLOW WHOLE. DO NOT CRUSH OR CHEW. 6) LISINOPRIL 20MG TAB TAKE ONE-HALF TABLET BY MOUTH ACTIVE EVERY MORNING FOR HEART OR HIGH BLOOD PRESSURE 7) METOPROLOL SUCCINATE 50MG SA TAB TAKE ONE-HALF TABLET ACTIVE BY MOUTH EVERY MORNING FOR BLOOD PRESSURE SWALLOW WHOLE, DO NOT CRUSH OR CHEW (TABLETS MAY BE CUT IN HALF). 8) NITROGLYCERIN 0.4MG SL TAB DISSOLVE ONE TABLET UNDER ACTIVE THE TONGUE EVERY MORNING NEEDED FOR CHEST PAIN. IF NO IMPROVEMENT AFTER FIRST DOSE CALL 9-1-1. MAY TAKE 2 ADDITIONAL DOSES, 5 MINUTES APART. 9) OMEPRAZOLE 20MG EC CAP TAKE ONE CAPSULE BY MOUTH ACTIVE EVERY MORNING FOR GERD - TAKE WITH A FULL GLASS OF WATER 30 MINUTES BEFORE FOOD OR OTHER DRINKS 10) RANOLAZINE 1000MG SA TAB TAKE ONE TABLET BY MOUTH TWO ACTIVE TIMES A DAY FOR HEART/PREVENT CHEST PAIN, *SWALLOW WHOLE- DO NOT CRUSH,BREAK OR CHEW* 11) ROSUVASTATIN CA 40MG TAB TAKE ONE TABLET BY MOUTH AT ACTIVE BEDTIME FOR CHOLESTEROL. REPORT ANY UNEXPLAINED MUSCLE PAIN OR WEAKNESS TO YOUR DOCTOR. 12) TAMSULOSIN HCL 0.4MG CAP TAKE ONE CAPSULE BY MOUTH ACTIVE ONCE A DAY FOR PROSTATE TAKE WITH FOOD Active Non-VA Medications Status 1) Non-VA ASPIRIN 81MG EC TAB 81MG MOUTH ONCE A DAY ACTIVE 13 Total Medications Active Inpatient Medications (excluding Supplies): Active Inpatient Medications Status 1) AMIODARONE 360MG PREMIX INJ INJ in AMIODARONE 360MG/ ACTIVE D5W 200 ML 1 mg/min x 6hrs @1 continue at 0.5mg/min (*1.8 MG/ML*) IV 2) AMLODIPINE TAB 10MG PO QAM ACTIVE 3) CHOLECALCIFEROL (LOW DOSE VIT D3) TAB 25MCG PO QAM ACTIVE 4) CYANOCOBALAMIN TAB 1000MCG PO QAM ACTIVE 5) DEXTROSE 50%/WATER INJ,SOLN 50ML (25GM) IVP Q15MIN ACTIVE PRN Instructions too long. See order details for full text. 6) DEXTROSE LIQUID,ORAL 15GM PO Q15MIN PRN Instructions ACTIVE too long. See order details for full text. 7) GLUCAGON EMERGENCY INJ 1MG/1VIAL SQ Q15MIN PRN ACTIVE Instructions too long. See order details for full text. 8) HEPARIN 25,000 UNITS / 0.45% NACL INJ,SOLN in HEPARIN ACTIVE 25,000 UNITS/0.45%NACL 500 ML TITRATE@1 Instructions too long. See order details for full text. IV 9) HEPARIN INJ,SOLN 5000UNIT/1ML IVP Q8H PRN Anti-Xa ACTIVE <0.1 GIVE 40 units/kg, Anti-Xa 0.10 to 0.20, GIVE 20 units/kg, then per protocol 10) ISOSORBIDE MONONITRATE TAB,SA 120MG PO QDAY ACTIVE 11) LISINOPRIL TAB 10MG PO QAM ACTIVE 12) METOPROLOL SUCCINATE TAB,SA 25MG PO QAM ACTIVE 13) NITROGLYCERIN TAB,SUBLINGUAL 0.4MG SL Q5MIN PRN ACTIVE NEEDED FOR CHEST PAIN. MAY REPEAT DOSE TWICE 14) OMEPRAZOLE CAP,EC 20MG PO QAM AC ACTIVE 15) RANOLAZINE TAB,SA 1000MG PO BID ACTIVE 16) ROSUVASTATIN TAB 40MG PO QHS ACTIVE 17) SODIUM CHLORIDE 0.9% PF SYR INJ 10mL IVP Q8H SALINE ACTIVE LOCK FLUSH 18) TAMSULOSIN CAP,ORAL 0.4MG PO QDAY ACTIVE ALLERGIES: Patient has answered NKA PHYSICAL EXAM: DATE/TIME TEMP PULSE RESP BP PAIN WEIGHT PUL OX 08/27/24 @ 0830 65 21 138/79 0 98 08/27/24 @ 0830 96.8 68 21 135/74 0 195.99 97 08/27/24 @ 0819 98.6 0 08/27/24 @ 0815 74 18 135/71 99 GENERAL: Alert and oriented x3, no acute distress. HEENT: PERRLA, EOMI. Oral mucosa pink and moist. HEART: Regular rate and rhythm. Normal S1,S2. No murmurs. LUNGS: Non-labored respirations. Lungs clear to auscultation. ABDOMEN: Soft, nontender, nondistended. Bowel sounds present. EXTREMITIES: No peripheral edema. Peripheral pulses palpable. NEURO: No focal deficits. CNII-XII grossly intact. PSYCH: Cooperative. Appropriate mood and affect. LABS: LAB RESULTS FOR: AUG 27, 2024 TROP-HS-CO: 1017 H* MRSA SCREEN: Negative URINE COLOR: Light-Yellow URINE APPEARANCE: Clear URINE PROTEIN: Negative URINE LEUKOCYTE ESTERASE: Negative URINE NITROGEN: Negative URINE BLOOD: Negative URINE KETONES: Negative URINE pH: 7.0 URINE SPECIFIC GRAVITY: 1.011 URINE BILIRUBIN: Negative URINE UROBILINOGEN: Normal URINE GLUCOSE: Negative ANTI-Xa (CO): <0.04 INR EK: 1.0 PT(03/09): 11.4 APTT ACL: 29.8 WBC: 15.70 H RBC: 4.80 HGB: 15.9 HCT: 44.9 MCV: 93.5 MCH: 33.1 MCHC: 35.4 RDW: 12.5 PLT: 236 MPV: 11.1 SEGS: 55.6 LYMPHS: 13.9 MONOCYTES: 5.2 BASO: 0.9 MYELO: 0.9 ANISOCYTOSIS: 1+ ATYPICAL LYMPHOCYTES: 23.5 PLT (ESTM)-CO: Adequate NEUTROPHIL, ABSOLUTE(M): 8.73 H IMMATURE GRANS, ABSOLUTE(M): 0.14 H LYMPHOCYTES, ABSOLUTE(M): 5.87 H MONOCYTES, ABSOLUTE(M): 0.82 H BASOPHILS, ABS(M): 0.14 PATHOLOGIST REVIEW: comment NTPROBNP: 410 GLUCOSE: 156 H UREA NITROGEN: 17 CREATININE: 1.14 SODIUM: 140 POTASSIUM: 4.1 CALCIUM: 9.4 PROTEIN,TOTAL: 8.0 ALBUMIN: 4.6 BILIRUBIN,TOTAL: 0.7 SGOT: 19 SGPT: 11 CL: 108 H CARBONDI: 21 L ALP: 68 eGFR (CKD-EPI 2020): 64 TROP-HS-CO: 15 AA RADIOLOGY: Exam date: AUG 27, 2024@06:51 Proc: CHEST 1 VIEW IMPRESSION TEXT: Mild cardiomegaly without pulmonary edema. READING PHYSICIAN: Aubrie Garcia 08/27/2024 7:29 AM REPORT TEXT: History: Ventricular tachycardia. Single view of the chest. Comparison: 05/20/2023. Findings: Lungs are clear. Mild cardiomegaly without pulmonary edema. Soft tissues are unremarkable. Atherosclerosis. Osseous structures demonstrate degenerative changes. ASSESSMENT AND PLAN: 1. 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 - Terminated with amiodarone - Resume home metoprolol 25 mg - Pending coronary angiogram - Discussed options for further management including ICD implantation vs. Lifevest. - Limited echo preliminarily suggests 20-25% EF, recommend repeat limited echocardiogram for Friday as reduction is possibly due to stunning. - Please obtain Thyroid panel, PFTs with diffuse capacity - Staffed with Dr. Roque /santiago/ WILL COWART FELLOW-CO Signed: 08/27/2024 14:23 Receipt Acknowledged By: 08/27/2024 14:28 /santiago/ EULALIA ROQUE PHYSICIAN 08/28/2024 23:21 /santiago/ SANDRA MOSLEY PHYSICIAN 08/27/2024 ADDENDUM STATUS: COMPLETED Inpatient cardiac electrophysiology consultation requested by cardiology consultative service for further evaluation of a wide QRS tachycardia. Chart reviewed and patient examined 08/27/2024. I agree with Dr. Cowart H and physical. 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 EKG upon presentation remarkable for wide QRS tachycardia (cycle length 280 ms) of right bundle morphology, positive concordance, and inferior axis. Prior EKGs remarkable for sinus rhythm and left bundle branch block. Echocardiogram last month remarkable for mild global left ventricular hypokinesis, moderate inferior hypokinesis, and ejection fraction 45 to 50%. Preliminarily I am told echocardiogram this hospitalization with ejection fraction less than 35%. Laboratory data remarkable for troponin maximum so far 1000, potassium 4.1, creatinine 1.14, normal liver transaminases, white blood cell count 16,000, and brain natruretic peptide 410. IMPRESSION 1. Sustained monomorphic VT. Cycle length 280 ms, right bundle morphology, inferior axis, positive concordance. 2. CAD with past history of multiple PCI's. Maintained on Plavix. 3. Left bundle branch block. 4. Aortic insufficiency. Previously mild to moderate. 5. By report, new fall in left ventricular function. Potentially secondary to prolonged duration of sustained VT. RECOMMENDATION 1. Await formal overread of today's transthoracic echo. 2. Cardiac catheterization pending. 3. If does well overnight, would transition from IV to oral amiodarone. In view of amiodarone's potential long-term administration, please obtain complete thyroid panel and outpatient PFTs with DIFFUSION CAPACITY. 4. Repeat limited echo on Friday. 5. I discussed with patient probable future benefit of ICD pending clinical course. Will require at very least dual-chamber ICD and possibly SUPERVISOR DETASSELING CREW ICD pending repeat limited echo on Friday. I discussed the operative procedure, benefits, and risks at length with patient. 6. Would reinitiate Toprol. 7. Discussed with Dr. Vazquez. /santiago/ EULALIA ROQUE PHYSICIAN Signed: 08/27/2024 14:46 Receipt Acknowledged By: * AWAITING SIGNATURE * KADEEM VAZQUEZ * AWAITING SIGNATURE * RADHA FIELDS * AWAITING SIGNATURE * CAROL SARABIAEDDI WATERS 08/30/2024 ADDENDUM STATUS: COMPLETED ICD planned for 08/31 ~ 11:[address] Almanza (dual vs SUPERVISOR DETASSELING CREW). phlebotomist lab assistant/[employer] alerted. /santiago/ TERRELL GUO Nurse Practitioner Signed: 08/30/2024 10:40 Receipt Acknowledged By: * AWAITING SIGNATURE * KADEEM VAZQUEZ * AWAITING SIGNATURE * EULALIA ROQUE [place] [facility] Aug 27, 2024 01:11 PM NURSING INPATIENT NOTE: LOCAL TITLE: CO-ICCA NURSING PROGRESS NOTE STANDARD TITLE: NURSING INPATIENT NOTE DATE OF NOTE: AUG 27, 2024@13:11 ENTRY DATE: AUG 27, 2024@13:18:55 AUTHOR: AVIS BARTLETT EXP COSIGNER: URGENCY: STATUS: COMPLETED CO-ICCA NURSING PROGRESS NOTE Has ADDENDA Nursing Progress Note Yogesh Pichardo [facility] 08/27/2024 13:11 - 08/27/2024 13:18 Nursing Progress Note (08/27/2024 13:11) AVIS BARTLETT: Note: Patient taken to terrazzo laborer via bed. Amiodarone and Heparin drips running when patient left ICU. 08/27/2024 13:11 - 08/27/2024 13:18 AVIS BARTLETT O /santiago/ AVIS BARTLETT REGISTERED NURSE Signed: 08/27/2024 13:18 08/27/2024 ADDENDUM STATUS: COMPLETED Patient returned from terrazzo laborer at this time via bed. No complaints or concerns. /santiago/ AVIS BARTLETT REGISTERED NURSE Signed: 08/27/2024 14:59 AVIS BARTLETT [facility] Aug 27, 2024 01:06 PM LIFE-SUSTAINING TREATMENT PLAN: LOCAL TITLE: LIFE-SUSTAINING TREATMENT STANDARD TITLE: LIFE-SUSTAINING TREATMENT PLAN DATE OF NOTE: AUG 27, 2024@13:06 ENTRY DATE: AUG 27, 2024@13:06:28 AUTHOR: LEEANNE BARRIOS COSIGNER: RADHA FIELDS URGENCY: STATUS: COMPLETED LIFE-SUSTAINING TREATMENT (LST) DECISION-MAKING CAPACITY TO MAKE DECISIONS ABOUT LIFE_SUSTAINING TREATMENTS Patient has capacity to make decisions about LSTs. 'S VALUES AND GOALS OF CARE - Goals as reported by the patient (or surrogate): I want you to do it if you have to LIFE-SUSTAINING TREATMENT PLAN * In the event of cardiopulmonary arrest: Full code: Attempt CPR. Other Life-Sustaining Treatments: Mechanical Ventilation - In the event of respiratory distress or failure when the patient HAS A PULSE, the patient: Mechanical ventilation discussed and patient does not want to limit at this time. INFORMED CONSENT Patient gave oral informed consent for life-sustaining treatment plan. --------- Time spent discussing and documenting this care planning activity. /santiago/ WAQAR BARRIOS RESIDENT Signed: 08/27/2024 13:08 /santiago/ RADHA FIELDS HOSPITALIST Cosigned: 08/27/2024 13:10 [facility] 27, 2024 12:32 PM H & P NOTE: LOCAL TITLE: CO-H&P (D) STANDARD TITLE: H & P NOTE DATE OF NOTE: AUG 27, 2024@12:32 ENTRY DATE: AUG 27, 2024@12:32:36 AUTHOR: LEEANNE BARRIOS EXP COSIGNER: RADHA FIELDS URGENCY: STATUS: COMPLETED H&P template: AUG 27, 2024 ALIYAH COREY [id number] WHITE [employer] CO-BTW PACT *PARMINDER* PCP: ABIGAIL ÁLVAREZ CHIEF CONCERN: Chest pain Aliyah Corey is an 84-year-old male with PMH of CAD, chronic angina, HTN, HLD, likely ischemic cardiomyopathy, left bundle branch block, aortic regurgitation, sleep apnea, history of malignant melanoma, BPH who presents with chest pain on 08/27/2024 after intercourse this morning leading to urgent presentation to ER where he was found to be in ventricular tachycardia. Amiodarone bolus and drip started and he converted to sinus rhythm. Initian High-sensitivity troponin taken immediately during event is benign at 15. Cardiology consulted. When seen by the admitting team in the AM, no significant symptoms, currently admitted under PCU status in the ICU. Heart rate is in 60s with sinus rhythm noted. No active chest pain. Later in the afternoon Hs-Trop found to be 1017. Cardiology had planned already earlier in the day to perform cardiac catheterization. HISTORY OF PRESENT ILLNESS = REVIEW OF SYSTEMS: All systems were reviewed and were negative except as noted above in the HPI. PAST MEDICAL HISTORY Active Problem Coronary arteriosclerosis I25.10 01/17/2020 HENRI,ABIGAIL NICOLE History of placement of stent for coronary ar 01/17/2020 HENRI,ABIGAIL NICOLE Benign essential hypertension I10. 01/17/2020 HENRI,ABIGAIL INCOLE Benign prostatic hypertrophy with outflow obs 01/17/2020 HENRI,ABIGAIL NICOLE H/O: angina pectoris Z86.79 01/17/2020 HENRI,ABIGAIL NICOLE Hyperlipidemia E78.5 01/17/2020 HENRI,ABIGAIL NICOLE Aortic valve regurgitation I35.1 09/11/2020 [place] Current drinker Z72.89 04/04/2022 HENRI,ABIGAIL NICOLE Hiatal hernia K44.9 04/04/2022 HENRI,ABIGAIL NICOLE GERD - Gastro-Esophageal Reflux Disease (SCT 04/04/2022 HENRI,ABIGAIL NICOLE Constipation K59.00 04/04/2022 HENRI,ABIGAIL NICOLE Exposure to potentially hazardous substance Z 07/08/2023 HENRI,ABIGAIL NICOLE Difficulty in Walking, not elsewhere classifi 02/17/2024 ABIGAIL ÁLVAREZ PAST SURGICAL HISTORY JUN 12, 1992@10:00 Proc: L&COR JUN 21, 1992@09:00 Proc: L&COR APR 27, 2021@11:37 Proc: WIDE LOCAL EXCISION OF UPPER BACK MELANOMA WITH SNETINAL LYMPH NOSE BIOPSY AUG 18, 2023@13:46 Proc: RIGHT PHACOEMULSIFICATION AND ASPIRATION SEP 26, 2023@08:59 Proc: PHACOEMULSIFICATION & ASPIRATION / LEFT FAMILY HISTORY Mother - unkn Father - unkn Brother/Sister - unkn SOCIAL HISTORY CURRENT MARITAL STATUS: 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 See order details for full text. 2) DEXTROSE LIQUID,ORAL 15GM PO Q15MIN PRN Instructions ACTIVE too long. See order details for full text. 3) GLUCAGON EMERGENCY INJ 1MG/1VIAL SQ Q15MIN PRN ACTIVE Instructions too long. See order details for full text. 4) HEPARIN 25,000 UNITS / 0.45% NACL INJ,SOLN in HEPARIN ACTIVE 25,000 UNITS/0.45%NACL 500 ML TITRATE@1 Instructions too long. See order details for full text. IV 5) HEPARIN INJ,SOLN 5000UNIT/1ML IVP Q8H PRN Anti-Xa ACTIVE <0.1 GIVE 40 units/kg, Anti-Xa 0.10 to 0.20, GIVE 20 units/kg, then per protocol 6) SODIUM CHLORIDE 0.9% PF SYR INJ 10mL IVP Q8H SALINE ACTIVE LOCK FLUSH Pending Inpatient Medications Status 1) AMIODARONE 360MG PREMIX INJ INJ in AMIODARONE 360MG/ NON-VERIFIED D5W 200 ML 1 mg/min x 6hrs @1 IV 7 Total Medications Active Outpatient Medications (including Supplies): Active Outpatient Medications Status 1) AMLODIPINE BESYLATE 10MG TAB TAKE ONE TABLET BY MOUTH ACTIVE EVERY MORNING FOR HEART/BLOOD PRESSURE 2) CHOLECALCIF 25MCG (D3-1,000UNIT) TAB TAKE ONE TABLET ACTIVE BY MOUTH EVERY MORNING FOR VITAMIN D DEFICIENCY 3) CLOPIDOGREL BISULFATE 75MG TAB TAKE ONE TABLET BY ACTIVE (S) MOUTH ONCE A DAY TO PREVENT BLOOD CLOTS 4) CYANOCOBALAMIN 1000MCG TAB TAKE ONE TABLET BY MOUTH ACTIVE EVERY MORNING FOR VITAMIN DEFICIENCY 5) ISOSORBIDE MONONITRATE 120MG SA TAB TAKE ONE TABLET ACTIVE BY MOUTH ONCE A DAY TO PREVENT CHEST PAIN TAKE ON EMPTY STOMACH. SWALLOW WHOLE. DO NOT CRUSH OR CHEW. 6) LISINOPRIL 20MG TAB TAKE ONE-HALF TABLET BY MOUTH ACTIVE EVERY MORNING FOR HEART OR HIGH BLOOD PRESSURE 7) METOPROLOL SUCCINATE 50MG SA TAB TAKE ONE-HALF TABLET ACTIVE BY MOUTH EVERY MORNING FOR BLOOD PRESSURE SWALLOW WHOLE, DO NOT CRUSH OR CHEW (TABLETS MAY BE CUT IN HALF). 8) NITROGLYCERIN 0.4MG SL TAB DISSOLVE ONE TABLET UNDER ACTIVE THE TONGUE EVERY MORNING NEEDED FOR CHEST PAIN. IF NO IMPROVEMENT AFTER FIRST DOSE CALL 9-1-1. MAY TAKE 2 ADDITIONAL DOSES, 5 MINUTES APART. 9) OMEPRAZOLE 20MG EC CAP TAKE ONE CAPSULE BY MOUTH ACTIVE EVERY MORNING FOR GERD - TAKE WITH A FULL GLASS OF WATER 30 MINUTES BEFORE FOOD OR OTHER DRINKS 10) RANOLAZINE 1000MG SA TAB TAKE ONE TABLET BY MOUTH TWO ACTIVE TIMES A DAY FOR HEART/PREVENT CHEST PAIN, *SWALLOW WHOLE- DO NOT CRUSH,BREAK OR CHEW* 11) ROSUVASTATIN CA 40MG TAB TAKE ONE TABLET BY MOUTH AT ACTIVE BEDTIME FOR CHOLESTEROL. REPORT ANY UNEXPLAINED MUSCLE PAIN OR WEAKNESS TO YOUR DOCTOR. 12) TAMSULOSIN HCL 0.4MG CAP TAKE ONE CAPSULE BY MOUTH ACTIVE ONCE A DAY FOR PROSTATE TAKE WITH FOOD Active Non-VA Medications Status 1) Non-VA ASPIRIN 81MG EC TAB 81MG MOUTH ONCE A DAY ACTIVE 13 Total Medications ALLERGIES ========= Patient has answered NKA PHYSICAL EXAMINATION Vital signs: Temp: 96.8 F [36.0 C] (08/27/2024 08:30) Pulse: 65 (08/27/2024 08:30) B/P: 138/79 (08/27/2024 08:30) Resp: 21 (08/27/2024 08:30) O2 sat: ____ Height: 67 in [170.2 cm] (09/26/2023 07:47) Weight: 195.99 lb [88.90 kg] (08/27/2024 08:30) Pain: 0 (08/27/2024 08:30) BMI: 30.8 GENERAL: HEAD: Atraumatic, normocephalic. EYES: Sclera normal in color, no injection or icterus. EARS: Hearing is grossly intact. NECK: No JVD. No thyromegaly. No carotid bruits. MOUTH: Normal dentition. CARDIOVASCULAR: RRR. S1/S2 normal. No murmurs, gallops or rubs. RESPIRATORY: CTA b/l. No wheeze or crackles. No accessory muscle use noted. ABDOMEN: Normoactive bowel sounds. Soft, nontender, non-distended. No organomegaly or masses are appreciated. SKIN: Warm and dry. No rashes or other lesions noted. EXTREMITIES: No cyanosis, clubbing, or edema. NEURO: Alert and oriented. Cranial nerved II-XII grossly intact. Speech is fluent. PSYCH: Cooperative with appropriate mood and affect. ======== LABS ========= LAB RESULTS FOR: AUG 27, 2024 TROP-HS-CO: 1017 H* MRSA SCREEN: Negative URINE COLOR: Light-Yellow URINE APPEARANCE: Clear URINE PROTEIN: Negative URINE LEUKOCYTE ESTERASE: Negative URINE NITROGEN: Negative URINE BLOOD: Negative URINE KETONES: Negative URINE pH: 7.0 URINE SPECIFIC GRAVITY: 1.011 URINE BILIRUBIN: Negative URINE UROBILINOGEN: Normal URINE GLUCOSE: Negative ANTI-Xa (CO): <0.04 INR EK: 1.0 PT(03/09): 11.4 APTT ACL: 29.8 WBC: 15.70 H RBC: 4.80 HGB: 15.9 HCT: 44.9 MCV: 93.5 MCH: 33.1 MCHC: 35.4 RDW: 12.5 PLT: 236 MPV: 11.1 SEGS: 55.6 LYMPHS: 13.9 MONOCYTES: 5.2 BASO: 0.9 MYELO: 0.9 ANISOCYTOSIS: 1+ ATYPICAL LYMPHOCYTES: 23.5 PLT (ESTM)-CO: Adequate NEUTROPHIL, ABSOLUTE(M): 8.73 H IMMATURE GRANS, ABSOLUTE(M): 0.14 H LYMPHOCYTES, ABSOLUTE(M): 5.87 H MONOCYTES, ABSOLUTE(M): 0.82 H BASOPHILS, ABS(M): 0.14 PATHOLOGIST REVIEW: comment NTPROBNP: 410 GLUCOSE: 156 H UREA NITROGEN: 17 CREATININE: 1.14 SODIUM: 140 POTASSIUM: 4.1 CALCIUM: 9.4 PROTEIN,TOTAL: 8.0 ALBUMIN: 4.6 BILIRUBIN,TOTAL: 0.7 SGOT: 19 SGPT: 11 CL: 108 H CARBONDI: 21 L ALP: 68 eGFR (CKD-EPI 2020): 64 TROP-HS-CO: 15 ======== EKG ======= ========= IMAGING ========= Exam date: AUG 27, 2024@06:51 Proc: CHEST 1 VIEW IMPRESSION TEXT: Mild cardiomegaly without pulmonary edema. READING PHYSICIAN: Aubrie Garcia 08/27/2024 7:29 AM REPORT TEXT: History: Ventricular tachycardia. Single view of the chest. Comparison: 05/20/2023. Findings: Lungs are clear. Mild cardiomegaly without pulmonary edema. Soft tissues are unremarkable. Atherosclerosis. Osseous structures demonstrate degenerative changes. IMPRESSION & PLAN Aliyah Corey is an 84-year-old male with PMH of CAD, chronic angina, HTN, HLD, likely ischemic cardiomyopathy, left bundle branch block, aortic regurgitation, sleep apnea, history of malignant melanoma, BPH who presents with chest pain on 08/27/2024. S/p amiodorone bolus in ED for ventricular tachycardia which converted back to sinus. Troponin on initial presentation benign, however increased to over 1000 by noon day of admission. Cardiology has been following since presntation to ED and is planning catheterization on 08/27. 24 hr plan: -ACS protocol, continue heparin drip, trend troponin -Continue amiodorone drip -Cardiology following, planning for catheterization 08/27 #ACS, NSTEMI #Ventricular tachycardia -ACS protocol, continue heparin drip, trend troponin -Continue amiodorone drip -Cardiology following, planning for catheterization 08/27 #CAD #Ischemic cardiomyopathy #Moderate aortic regurgitation #History of left bundle branch block -Continue home metoprolol succinate 25 mg PO qAM -Continue home Imdur 120 mg PO qAM #HTN -Continue home amlodipine 10 mg PO daily -Continue home lisinopril 10 mg PO qAM #HLD -Continue home rosuvastatin 40 mg qHS #BPH -Continue home tamsulosin 0.4 mg PO daily #ILEANA #History of malignant melanoma Diet: NPO for cath Team: Team 2, ICU [id number] Code status: Full code DVT Prophylaxis: Heparin gtt Patient seen and staffed with Dr. Radha Fields /santiago/ WAQAR BARRIOS RESIDENT Signed: 08/27/2024 13:08 /santiago/ RADHA FIELDS HOSPITALIST Cosigned: 08/27/2024 13:11 LEEANNE BARRIOS [facility] Aug 27, 2024 12:26 PM NURSING EMERGENCY DEPT NOTE: LOCAL TITLE: CO-CRITICAL LAB RESULT NOTIFICATION STANDARD TITLE: NURSING EMERGENCY DEPT NOTE DATE OF NOTE: AUG 27, 2024@12:26 ENTRY DATE: AUG 27, 2024@12:26:49 AUTHOR: ERICA SOLOMON COSIGNER: URGENCY: STATUS: COMPLETED On this date I received notification of critical lab results. Date/time of result notification: Aug@12:13 First and last name of Lab staff who provided this information: Mario Cunningham Test result received: 1017 Read back was done to verify receipt and understanding of lab results. This result was provided to the following provider (LAST NAME,FIRST NAME): Waqar Barrios at Aug@12:15 /rick SOLOMON REGISTERED NURSE Signed: 08/27/2024 12:28 [facility] Aug 27, 2024 10:19 AM TELEHEALTH NOTE: LOCAL TITLE: TELECRITICAL CARE NOTE STANDARD TITLE: TELEHEALTH NOTE DATE OF NOTE: AUG 27, 2024@10:19 ENTRY DATE: AUG 27, 2024@10:19:40 AUTHOR: MICHEAL HINES COSIGNER: URGENCY: STATUS: COMPLETED TeleCritical Care Note TeleCritical Care Nurse Note: Admission: Patient admitted to TeleCritical Care. Upon discharge from ICU or Stepdown/PCU status, patient will be discharged from TeleCritical Care. Education/Verbal Agreement to video monitoring by TeleCritical Care: Verbal agreement obtained by TeleCritical Care staff from patient /rick HINES MSN RN CCRN Telecritical Care RN Signed: 08/27/2024 10:20 MICHEAL HINES [facility] Aug 27, 2024 09:28 AM NURSING TREATMENT PLAN NOTE: LOCAL TITLE: CO-NURSING PLAN OF CARE (RD) STANDARD TITLE: NURSING TREATMENT PLAN NOTE DATE OF NOTE: AUG 27, 2024@09:28 ENTRY DATE: AUG 27, 2024@09:29:13 AUTHOR: ERICA SOLOMON COSIGNER: URGENCY: STATUS: COMPLETED CO-NURSING PLAN OF CARE (RD) Has ADDENDA Plan of Care: Admitting diagnosis: VTACH, CHEST PAIN ALTERATION: ANTICOAGULATION THERAPY - Heparin infusion/Bleeding precautions GOALS: <*> PTT maintained in therapeutic range, no adverse bleeding events. INTERVENTIONS: <> Heparin infusion as ordered per protocol. <> Monitor all stool, urine, sputum, and emesis for occult/manju blood. <> Report hemoglobin/hematocrit alert values. <> Report PTT value outside range of ordered parameters. <> Assess mental/neuro status. Document findings every shift. Assess for significant changes in vital signs (e.g., decrease in heart rate, increase in pulse pressure), level of consciousness, pupils, and headache. Notify physician immediately. <> Hold all venous sticks at least 5 minutes and longer for arterial sticks. <> Monitor administration rate. 2 RNs to calculate and double check/double chart all rate changes. ALTERATION: CHEST PAIN CARDIOVASCULAR--ACUTE CORONARY SYNDROME <*>NSTEMI GOALS: <*> The patient's will verbalize no anginal or ACS symptoms. <*> The patient will maintain stable vital signs. <*> The patient will maintain adequate cardiac output during and following reperfusion therapy (i.e. thrombolytics and/or PCI/Stenting). <*> The patient demonstrates no signs of internal or external bleeding. <*> The patient will verbalize reduced anxiety and fear. <*> The patient will be able to manage ADL's comparable to pre- admission. <*> The patient will demonstrate activity progression and frequency. <*> The patient understands discharge teaching and meds (including risk factor modification). INTERVENTIONS: <*> Assess heart rate, blood pressure, and respirations as ordered. <*> Assess for and report anginal or ACS symptoms (i.e pain in the infarction zone or dyspnea). Note verbal reports, nonverbal cues (e.g., moaning, crying, restlessness, diaphoresis, clutching chest, rapid breathing), and hemodynamic response (BP/heart rate changes). <*> Instruct patient to report pain immediately. <*> Monitor and document evaluate of pain (i.e Obtain full description of pain from patient including location, intensity (0-10), duration, characteristics(dull/crushing) , and radiation. Assist patient to quantify pain by comparing it to other experiences. <*> Administer anti-anginal agents (i.e NTG SL, NTG GTT) or analgesics (Morphine) as ordered and then document dosage and effectiveness with every dose or dosage change (i.e titration of NTG gtt). <*> Administer supplemental oxygen as ordered. <*> Monitor for and treat dangerous dysrhythmias or other cardiac events per protocol. <*> Monitor for signs of reperfusion: decreased chest pain, return of ST segment to baseline, reperfusion dysrhythmias (e.g., PVCs, bradycardia, and heart block). <*> Assess for manifestations of internal or intracranial bleeding (i.e complaints of back or abdominal pain, headache, decreased level of consciousness, dizziness, bloody secretions or excretions, or pallor. Notify provider immediately of any abnormal findings. <*> Assess cardiac cath access/puncture site (i.e assessing for hematoma formation). <*> Palpate peripheral pulses for equality and strength. <*> Administer cardiac medications as ordered and monitor response of those medications (i.e NTG SL; ASA 81mg/day; Anti-platelet agent (Plavix, Prasugrel, or Brilinta); Beta blockers; Statin and if statin is contraindicated then other lipid lower agents; ACEIs for patient with CHF, LVD EF<40%, hypertension, or DM; hypertension control BP <130/80; well controlled DM; fenafibrate or niacin if HDL <40 and triglycerides>200. <*> Monitor lab values and report abnormalities to provider. <*> Utilize SCDs or anti-embolus stockings as ordered. <*> Provide quiet environment, calm activities, and comfort measures (e.g., dry/wrinkle-free linens, backrub). <*> Assist/instruct in relaxation techniques, e.g., deep/slow breathing, distraction behaviors, visualization, guided imagery. <*> Encourage verbalization of fears and concerns. <*> CARDIAC REHAB CONSULT: Should be placed for ALL patient with STEMI or NSTEMI. ALTERATION: DYSRHYTHMIAS/Telemetry monitoring GOALS: Dysrhytmias detected. Dysrhythmias controled/resolved. INTERVENIONS: When telemetry monitoring is in place: Document dysrhythmia event assessments and follow up interventions. Inform provider of events and assessments. Provide follow-up interventions as ordered. Correlate other factors, i.e., ABG's, electrolytes, drug levels. Monitor for and record effects of following prescribed medications. ALTERATION: HIGH RISK FOR INFECTION GOALS: Temperature stays within normal range for patient. No pathogens appear in cultures. Wounds and incisions appear clean, pink, and free of purulent discharge. INTERVENTIONS: Wash hands before and after providing patient care. <> Utilize body Standard Precautions when providing direct care. Use strict aseptic technique when suctioning, inserting catheters, starting IVs, providing wound care, and changing vascular access dressings. Monitor vital signs as ordered: Report elevation in temperature immediately. <> Monitor for signs and symptoms of infection. <> Ensure adequate nutritional and fluid intake. Educate patient/family on good hand washing techniques, oral and personal hygiene measures, factors that increase risk for infection, and infection signs and symptoms. ALTERATION: IMPAIRED CARDIAC FUNCTION GOALS: The patient will maintain stable vital signs. The patient will maintain adequate blood flow to vital organs. The patient's skin will be warm and dry with pink mucosa. INTERVENTIONS: Assess heart rate, blood pressure, and respirations as ordered. Monitor level of consciousness and orientation (response to stimuli, ability to follow directions, and knowledge of time, place, and person). Palpate peripheral pulses for equality and strength/assess capillary refill. Assess skin color, moisture, temperature, and integrity. Record accurate I&O. Monitor lab values and effects of medication administration. Position patient appropriately. Administer supplemental oxygen as ordered. Utilize SCDs or anti-embolus stockings as ordered. In critical care areas: a. Monitor for dysrhythmias b. Monitor and record hemodynamic parameters and cardiac output as ordered. ALTERATION: IMPAIRED OXYGENATION GOALS: The patient will maintain/return to baseline arterial blood gases. The patient will maintain baseline level of consciousness and/or mentation. The patient will maintain a patent airway. INTERVENTIONS: Assess respiratory status including rate, depth, pattern, sputum production and effort of breathing. Monitor vital signs, breath sounds, SaO2, presence of cyanosis, and cognitive behavioral status. Monitor I&O noting effects of fluid administration and diureses. Maintain patent airway by facilitating cough, by suctioning, and by use of incentive spirometry. Position patient to maximize ventilation. If patient is immobile, turn every two (2) hours unless contraindicated. Schedule nursing interventions or activities and encourage rest periods to conserve energy. Administer supplemental oxygen as ordered. Administer and monitor the effectiveness of medications, i.e. bronchodilators, diuretics, steroids, antibiotics, vasopressors. Provide pain medication for optimal comfort/and deep breathing. Monitor to prevent ventilatory depression. Teach patient/family signs and symptoms of hypoxemia/hypercapnea and methods of effective coughing and deep breathing. <> Encourage/assist with increased mobility/ambulation. In critical care areas: a. Assist with endotracheal intubation if patient fails to maintain adequate spontaneous ventilation. ALTERATION: PAIN, CHRONIC OR ACUTE GOALS: <*> The patient will verbalize that pain is relieved or adequately controlled. <*> The patient will successfully describe location and nature of pain, alleviating and aggravating factors, and appropriate use of pain control measures. INTERVENTIONS: <*> Assessment and documentation of patient's pain should include presence, physical exam of site of pain, intensity, quality, region, onset, alleviating factors, impact on daily life, and patient's pain goal. <*> Instruct patient to grade pain on scale of 0-10; 0 is no pain, 10 is the most excruciating pain imaginable. <*> Reduce or eliminate factors that increase the pain experience: a. Acknowledge the presence of patient's pain b. Provide information to decrease fear of addiction c. Provide opportunities for rest during day and uninterrupted sleep at night. <> Provide the prescribed analgesics to achieve optimal pain relief. <*> Evaluate response to pain relief techniques. <*> Notify physician if pain relief is inadequate with medication as ordered. <> Monitor for and document common side effects of narcotics (sedation, constipation, nausea and vomiting, dry mouth). <*> Position and move patient in good alignment. <*> [place] comfort measures such as positioning, relaxation, reassurance, pillow supports. /es/ ERICA SOLOMON REGISTERED NURSE Signed: 08/27/2024 09:35 08/27/2024 ADDENDUM STATUS: COMPLETED I have reviewed plan of care and agree with the plan, I will continue to monitor patient and make changes as needed. /es/ RAHAT GASCA REGISTERED NURSE Signed: 08/27/2024 22:38 08/29/2024 ADDENDUM STATUS: COMPLETED I have reviewed plan of care and agree with the plan, I will continue to monitor patient and make changes as needed. /es/ RAHAT GASCA REGISTERED NURSE Signed: 08/29/2024 01:43 08/29/2024 ADDENDUM STATUS: COMPLETED Agree with POC. Will continue to utilize. /es/ RUTH OAKES REGISTERED NURSE Signed: 08/29/2024 09:46 08/29/2024 ADDENDUM STATUS: COMPLETED Plan of care still applies. [place] makig good progress toward goals. Will continue plan of care. /es/ HANSA HARRISON REGISTERED NURSE Signed: 08/29/2024 11:06 08/28/2024 ADDENDUM STATUS: COMPLETED Plan of care still applies. making good progress toward goals. Will continue plan of care. /es/ HANSA HARRISON REGISTERED NURSE Signed: 08/29/2024 11:25 08/29/2024 ADDENDUM STATUS: COMPLETED POC current at this time. /es/ ALYCIA KAUFFMAN REGISTERED NURSE Signed: 08/29/2024 16:32 08/29/2024 ADDENDUM STATUS: COMPLETED I have reviewed plan of care and agree with the plan, I will continue to monitor patient and make changes as needed. /es/ RAHAT GASCA REGISTERED NURSE Signed: 08/29/2024 21:50 08/30/2024 ADDENDUM STATUS: COMPLETED I have reviewed the above plan of care for this patient and find it appropriate for this shift. See [facility] for assessment details. /es/ AVIS BARTLETT REGISTERED NURSE Signed: 08/30/2024 10:02 08/30/2024 ADDENDUM STATUS: COMPLETED I have reviewed plan of care and agree with the plan, I will continue to monitor patient and make changes as needed. /es/ RAHAT GASCA REGISTERED NURSE Signed: 08/30/2024 23:49 08/31/2024 ADDENDUM STATUS: COMPLETED read and reviewed nursing plan of care with no changes to be made. will update plan as needed /es/ EMILY DALTON REGISTERED NURSE Signed: 08/31/2024 13:15 08/31/2024 ADDENDUM STATUS: COMPLETED I have reviewed plan of care and agree with the plan, I will continue to monitor patient and make changes as needed. /es/ RAHAT GASCA REGISTERED NURSE Signed: 08/31/2024 21:27 09/01/2024 ADDENDUM STATUS: COMPLETED read and reviewed nursing plan of care with no changes to be made. will update plan as needed /santiago/ EMILY DALTON REGISTERED NURSE Signed: 09/01/2024 08:57 ERICA SOLOMON [facility] Aug 27, 2024 09:23 AM NURSING NOTE: LOCAL TITLE: [facility] SKIN INSPECTION/ASSESSMENT STANDARD TITLE: NURSING NOTE DATE OF NOTE: AUG 27, 2024@09:23 ENTRY DATE: AUG 27, 2024@09:23:47 AUTHOR: ERICA SOLOMON COSIGNER: URGENCY: STATUS: COMPLETED Assessment Type: INITIAL SKIN INSPECTION/ASSESSMENT SKIN INSPECTION: Skin Color: Usual for ethnicity Skin Temperature: Warm Skin Moisture: Normal Skin Turgor: Elastic (normal/immediate) Boris Skin Assessment: The patient's Boris Scale Score is 19. The patient is considered not at risk for development of pressure ulcers/injuries. Sensory perception -- ability to respond meaningfully to pressure-related discomfort Slightly limited. Moisture -- degree to which skin is exposed to moisture Rarely moist. Activity -- ability to change and control body position Walks occasionally. Mobility -- ability to change and control body position No limitation. Nutrition -- usual food intake patterns Adequate. Friction and shear Potential problem. INTERVENTIONS: The pressure injury interventions were not needed - patient/resident is not at risk. RISK FACTORS THAT INCREASE RISK FOR DEVELOPING PRESSURE INJURIES: The patient/resident has the following: Age over 75 Known vascular surgery or vascular disease Device(s): (nasogastric tubes, oxygen tubing, urinary catheters, cell phone etc.) Comment: telemetry, BP cuff, SPO2 sensor, PIV x3, IV tubing, oxygen tubing, room phone, call light SKIN INTEGRITY: Intact /santiago/ ERICA SOLOMON REGISTERED NURSE Signed: 08/27/2024 09:26 [facility] 09:21 AM NURSING NOTE: LOCAL TITLE: CO-NURSING ADMISSION BELONGINGS (D) STANDARD TITLE: NURSING NOTE DATE OF NOTE: AUG 27, 2024@09:21 ENTRY DATE: AUG 27, 2024@09:21:08 AUTHOR: ERICA SOLOMON COSIGNER: URGENCY: STATUS: COMPLETED CO-NURSING ADMISSION BELONGINGS (D) Has ADDENDA Does patient have items to inventory? Yes Castillo/Checks: No Assistive devices: None Electronics: Description: none Disposition: Sent home with N/A Clothing: Description: blue sweatpants x1, white underwear x1 Disposition: Patient insisted on keeping at bedside. Dentures: None Prosthesis: None Pairs of Glasses 0 Pairs of Contacts 0 Hearing Aids 0 Disposition of Hearing aid(s)/Glasses: N/A Matches: None Cigarette Metal Plater: None Luggage/Duffle Bags: No Jewelry: Yes DETAILED description: gold ring with brown stone and gold/black wedding band Disposition: Patient insisted on keeping at bedside. Wallet/Purse: No [place] - Vehicle/Home: No [facility]: NO I understand that any possessions including valuables that I retain in my possession are my responsibility and that the [place] has no responsibility for their protection. Patient Signature: ____ /santiago/ ERICA SOLOMON REGISTERED NURSE Signed: 08/27/2024 09:23 08/27/2024 ADDENDUM STATUS: COMPLETED Patient's took home both of his rings. /es/ AVIS BARTLETT REGISTERED NURSE Signed: 08/27/2024 18:40 ERICA SOLOMON [place] [facility] Aug 27, 2024 09:07 AM NURSING ADMISSION EVALUATION NOTE: LOCAL TITLE: [facility] ACUTE INPATIENT NSG ADMISSION SCREEN STANDARD TITLE: NURSING ADMISSION EVALUATION NOTE DATE OF NOTE: AUG 27, 2024@09:07 ENTRY DATE: AUG 27, 2024@09:08:05 AUTHOR: ERICA SOLOMON COSIGNER: URGENCY: STATUS: COMPLETED = ALLERGY/ADVERSE DRUG REACTION (ADR) REVIEW (MRT5) = FACILITY ALLERGY/ADR -------- No Remote Allergy/ADR Data available for this patient [facility] No Known Allergies Allergy/Adverse Drug Reaction Review to be conducted by: Nurse: Results of Allergy/ADR Review: Allergy/Adverse Drug Reaction list confirmed. MEDICATION REVIEW (MRR1) Did patient bring medication(s) from home? No Medication Review to be conducted by Provider GENERAL INFORMATION Admission information given by: Patient Is there a legal guardian/conservator? No Preferred language for discussing healthcare: British Preferred mode of communication: Verbal Items at Bedside: None = INFECTIOUS DISEASE RISK SCREEN = Travel Screen: Have you traveled within the [place] within the last 21 days? No Have you traveled outside the [place] within the last 21 days? No Within the last 14 days, have you had: No known exposure Other Exposure to Infectious Disease: No known exposure Patient reported the following symptoms: No Symptoms Present History of Multiple Drug Resistant Organism (MDRO): No = NUTRITION SCREENING = Malnutrition Screening Weight (Previous 6 months): Measurement DT WEIGHT LB(KG)[BMI] 08/27/2024 06:28 201.28(91.30)[32*] 07/29/2024 13:45 206.4(93.62)[32*] 06/21/2024 14:12 204(92.53)[32*] Lost weight recently without trying: No (0 points) Have you been eating poorly because of decreased appetite? No (0 points) Total Score: 0 Other Nutrition Screening Questions: The patient does not report any concerns with their teeth that would make it difficult to eat. The patient does not report overeating to the point of feeling sick or making themselves vomit. The patient denies gaining 10 lbs.(4.5 kgs) or more in the past 3 months without trying. The patient denies having any food allergies, intolerance, special dietary needs, or ethnic, cultural or gnosticist preferences that would affect their dietary needs. Food Insecurity Screening Within the past 12 months, you worried whether your food would run out before you got money to buy more. Never true Within the past 12 months, the food you bought just did not last you and you did not have the money to get more. Never true Food Insecurity Disposition: RISK SCREENINGS Alcohol Screen: Screen to be completed by: Nurse: SCREEN FOR ALCOHOL (AUDIT-C) An alcohol screening test (AUDIT-C) was negative (score=3). 1. How often did you have a drink containing alcohol in the past year? Consider a drink to be a 12 ounce can or bottle of regular beer, 8 ounces of malt liquor, a 5 ounce glass of table wine, or a 1.5 ounce shot of liquor (like scotch, gin, or vodka). Two to three times per week 2. How many drinks containing alcohol did you have on a typical day when you were drinking in the past year? One or two drinks 3. How often did you have six or more drinks on one occasion in the past year? Never *Does the patient consume alcohol? No Tobacco Use: Former - tobacco user Do you currently or have you ever used alternative nicotine products? No Substance Use Assessment: *Do you use any recreational drugs or narcotics (prescription or non-prescription)? No = RISK OF WANDERING = The patient does not have a history of wandering. The patient does not have a history of elopement. The patient is not expressing a desire to leave. SUICIDE SCREEN Result of C-SSRS screener done was NEGATIVE. C-SSRS Screen is Negative EXPOSURE TO VIOLENCE AND ABUSE PRE-SCREEN Are you worried for your safety, that you will be hurt or harmed? No Has anyone tried to force you to sign papers or use your money against your will? No = REPRODUCTIVE & SEXUAL HEALTH = Do you have any sexual or reproductive concerns you would like your healthcare team to be aware of? No ADVANCE DIRECTIVE Notification of Rights Related to Advance Directives: Written notification not provided. Explain: pt stated advance directive is currently on file *The patient wishes to receive information about or assistance with Advance Care Planning and/or Advance Directive: No SPIRITUALITY Are there gnosticist practices or spiritual concerns you want the attorney recruiter, your provider, and other health care team members to know? No ANTICIPATED DISCHARGE NEEDS Where do you live? Housing owned/rented by [place]: Comment: own Method of transportation upon discharge: Private Vehicle: Are there any anticipated barriers to discharge? No EDUCATIONAL NEEDS/LEARNING STYLE Barriers to learning: None evident Patient learning style preferences: Demonstration Printed materials Verbal explanation VISITOR INFORMATION Will you have a primary support person while in the hospital? Yes: Relationship to patient: Spouse Visitor Name: Gifty Corey Contact Number: Patient's Visitor Restriction preferences: No Privacy Review: == NAIK FALL SCALE & TIPS PROGRAM == Naik Fall Scale: The Naik Fall scale was performed and score was 35. This is indicative of moderate risk for falls. History of falling: immediate or within 3 months? No Secondary diagnosis: Yes Ambulatory aid: None/bedrest/nurse assist Intravenous therapy/Heparin lock: Yes Gait/Transferring: Normal/bed rest/immobile Mental Status: Oriented to own ability/knows own limitations Fall Tailoring Interventions for Patient Safety (TIPS) Fall TIPS initiated with patient: Yes Interventions: IV assistance when walking Toileting method: Assist to bathroom Assistance out of bed: Call for assistance before getting out of bed == PAIN ASSESSMENT == Patient's acceptable pain goal: 8 Awful, hard to do anything Are you currently experiencing pain? No: /es/ ERICA SOLOMON REGISTERED NURSE Signed: 08/27/2024 09:19 ERICA SOLOMON [facility] Aug 27, 2024 09:06 AM WOUND CARE NOTE: LOCAL TITLE: CP CO-WOUND IMAGING STANDARD TITLE: WOUND CARE NOTE DATE OF NOTE: AUG 27, 2024@09:06:31 ENTRY DATE: AUG 27, 2024@09:06:31 AUTHOR: CLINICAL,DEVICE PRO EXP COSIGNER: URGENCY: STATUS: COMPLETED PROCEDURE SUMMARY CODE: Machine Resulted DATE/TIME PERFORMED: AUG 27, 2024@08:57:5 DOCUMENT IN VISTA IMAGING SEE FULL REPORT IN VISTA IMAGING SIGNATURE NOT REQUIRED SEE SIGNATURE IN VISTA IMAGING (CO-WoundVision BI) AUTO-INSTRUMENT DIAGNOSIS Procedure: CO_WOUND WOUND Nurse Practitioner Home Assessments-Protocol: Coccyx/Sacrum Administrative Closure: 08/27/2024 by: DEVICE PROXY SERVICE CLINICAL Clinical Procedures Proxy Service CLINICAL,DEVICE PROXY SERVICE [facility] Aug 27, 2024 09:04 AM WOUND CARE NOTE: LOCAL TITLE: CP CO-WOUND IMAGING STANDARD TITLE: WOUND CARE NOTE DATE OF NOTE: AUG 27, 2024@09:04:45 ENTRY DATE: AUG 27, 2024@09:04:45 AUTHOR: CLINICAL,DEVICE PRO EXP COSIGNER: URGENCY: STATUS: COMPLETED PROCEDURE SUMMARY CODE: Machine Resulted DATE/TIME PERFORMED: AUG 27, 2024@09:00:1 DOCUMENT IN VISTA IMAGING SEE FULL REPORT IN VISTA IMAGING SIGNATURE NOT REQUIRED SEE SIGNATURE IN VISTA IMAGING (CO-WoundVision BI) AUTO-INSTRUMENT DIAGNOSIS Procedure: CO_WOUND WOUND Nurse Practitioner Home Assessments-Protocol: Left Heel Administrative Closure: 08/27/2024 by: DEVICE PROXY SERVICE CLINICAL Clinical Procedures Proxy Service CLINICAL,DEVICE PROXY SERVICE [facility] Aug 27, 2024 09:02 AM WOUND CARE NOTE: LOCAL TITLE: CP CO-WOUND IMAGING STANDARD TITLE: WOUND CARE NOTE DATE OF NOTE: AUG 27, 2024@09:02:46 ENTRY DATE: AUG 27, 2024@09:02:46 AUTHOR: CLINICAL,DEVICE PRO EXP COSIGNER: URGENCY: STATUS: COMPLETED PROCEDURE SUMMARY CODE: Machine Resulted DATE/TIME PERFORMED: AUG 27, 2024@09:00:1 DOCUMENT IN VISTA IMAGING SEE FULL REPORT IN VISTA IMAGING SIGNATURE NOT REQUIRED SEE SIGNATURE IN VISTA IMAGING (CO-WoundVision BI) AUTO-INSTRUMENT DIAGNOSIS Procedure: CO_WOUND WOUND Nurse Practitioner Home Assessments-Protocol: Right Heel Administrative Closure: 08/27/2024 by: DEVICE PROXY SERVICE CLINICAL Clinical Procedures Proxy Service CLINICAL,DEVICE PROXY SERVICE [facility]
--- OUTSIDE RECORDS SUMMARY | 2024-09-25 16:05 | XMS_ITS | Encounter Summary ---
Author Name [facility] [place] [facility] [facility] [place] Address [address] [place] [address] Care Team Providers Care Sign Erector And Repairer Name Role Phone ABIGAIL PERALTA Primary Care Provider Unavailabl e Insurance Providers: [...] PART A Feb 07, 2007 PART A [id number] [phone] ALIYAH MANDEL PATIENT MEDICARE (WNR) MEDICARE (M) PART A Feb 07, 2007 PART A [id number] [phone] TEQUILAALIYAH PATIENT Selected Encounter This section includes the information on record at [place] for the Encounter. Date/Time Encounter Type Encounter Description Reason Provider Source Mar 05, 2024 09:45 AM THER/PROPH/DIAG INJ SC/IM PRIMARY CARE/MEDICINE ICD-10-CM Z23 Encounter for immunization RICK NUNO Encounter Template Text not used by [place] Assessments - Encounter Diagnoses This section includes the primary and secondary diagnoses documented for the Encounter. Date/Time Primary/Secondary Diagnosis Diagnosis Name Provider Source Mar 05, 2024 10:54 AM PRIMARY Encounter for immunization RICK NUNO [facility] Plan of Treatment: Future Appointments (+ 6 months) and Future Tests (+/- 45 days) The Plan of Treatment section includes future care activities for the patient from all [place] treatmentfacilities. This section includes future appointments and future orders which are active, pending or scheduled. Future Appointments This section includes appointments that were scheduled to occur 6 months from the date of the Encounter, up to a maximum of 20 appointments. The data comes from all [place] treatment facilities. Appointment Date/Time Appointment Type Appointme nt Facility Name Mar 12, 2024 09:00 AM AMBULATORY - MEDICINE [facility] Mar 29, 2024 08:00 AM [facility] May 03, 2024 10:40 AM AMBULATORY - SURGERY [facility] May 10, 2024 09:00 AM [facility] May 24, 2024 02:00 PM AMBULATORY - MEDICINE [facility] Jun 21, 2024 01:30 PM AMBULATORY - NONE [facility] Jun 21, 2024 02:00 PM AMBULATORY - NONE [facility] Jun 21, 2024 03:00 PM AMBULATORY - PSYCHIATRY [facility] Jul 29, 2024 01:00 PM AMBULATORY - MEDICINE [facility] Jul 29, 2024 02:00 PM AMBULATORY - MEDICINE [facility] Aug 10, 2024 08:00 AM [facility] Aug 11, 2024 11:00 AM AMBULATORY - NONE [facility] Aug 27, 2024 06:28 AM AM[facility]UL[facility]ORY - [facility]ICINE [facility] Sep 02, 2024 01:00 PM AMBULATORY - NONE [facility] Lab Results: +/- 30 days of the encounter This section includes the Chemistry and Hematology Lab Results on record with [place] for the patient. Radiology Reports and Pathology Reports are provided separately, in subsequent sections. Lab Results This section contains the Chemistry/Hematology Results that were resulted 30 days before or 30 daysafter the date of the Encounter. Date/Time Source Result Type Result - Unit Interpretation Reference Range Specimen Type Comment Feb 11, 2024 10:36 AM [facility] VITAMIN B12 SERUM Specimen Type: SERUM No comment entered. Ordering Provider: ABIGAIL PERALTA Report Released Date/Time: Aug 26, 2023 02:34 PM Reporting Lab: [address] [address] Performing Lab: [address] [address] VITAMIN B12 285 pg/mL [phone] Feb 11, 2024 10:36 AM [facility] CMP-NONFASTING (CO) PLASMA Specimen Type: PLAS MA No comment entered. Ordering Provider: ABIGAIL PERALTA Report Released Date/Time: Aug 26, 2023 02:34 PM Reporting Lab: [address] [address] Performing Lab: [address] [address] *CREATININE 1.05 mg/dL 0.7-1.3 UREA NITROGEN mg/dL 16 mg/dL 9-25 GLUCOSE 98 mg/dL 72-99 SODIUM 138 meq/L 136-145 POTASSIUM 4.6 meq/L 3.5-5.0 CALCIUM (mg/dL) 9.2 mg/dL 8.4-10.4 PROTEIN,TOTAL 6.7 g/dL 6.0-8.6 ALBUMIN 4.4 g/dL 3.4-5.0 TOTAL BILIRUBIN 0.7 mg/dL 0.2-1.2 ASPARTATE TRANSAMINASE 10 U/L 5-34 ALANINE AMINOTRANSFERASE 7 U/L L 8-40 CHLORIDE 107 meq/L 98-107 CO2 24 meq/L 22-31 ALKALINE PHOSPHATASE 51 U/L 40-150 EGFR (CKD-EPI 2020) 71 Immunizations: All administered on the encounter date This section contains immunizations associated to the Encounter. Immunization Series Date Issued Administered By Site Reaction Lot Number CVX Code Drug Plant Chief Comment(s) Source COVID-19 (MODERNA), MRNA, LNP-S, PF, 50 MCG/0.5 ML (AGES 12+ YEARS) Mar 05, 2024 RICK NUNO LEFT DELTO ID [id number] MODERNA [employer] ADMIN[place], [facility] Advance Directives: All historical and current Section Date Range: From patient's date of to the date document was created. This section includes ALL of a patient's completed or amended [place] Advance and Rescinded Directives. The entries below indicate that a directive exists for the patient, but an actual copy is not included with this document. The data comes from all [facility]. Date Advance Directives Provider Source October 22, 2022 ADVANCE DIRECTIVE DISCUSSION ARGELIA CHAVEZ [facility] Apr 04, 2022 ADVANCE DIRECTIVE DISCUSSION RAY ROQUE [facility] Sep 30, 2020 ADVANCE DIRECTIVE DISCUSSION ILYA BROWN [facility] Jul 26, 2020 ADVANCE DIRECTIVE DISCUSSION FABY TAMEZ [facility] Apr 17, 2020 ADVANCE DIRECTIVE DISCUSSION LINETTE RAMIREZ [facility] Jan 17, 2020 ADVANCE DIRECTIVE DISCUSSION LINETTE RAMIREZ [facility] Feb 24, 2009 ADVANCE DIRECTIVE HECTOR [facility] Pathology Reports: +/- 30 days of the encounter Pathology Reports For cases when an order for pathology services may have been completed prior to the date of the Encounter, the report list includes the Pathology Reports that were completed up to 30 days before dateof the Encounter. For cases when an order for pathology services may have been completed after the date of the Encounter, the report list also includes the Pathology Reports that were completed up to30 days after date of the Encounter. The data comes from all [facility]. Date/Time Pathology Report Provider Source Mar 17, 2024 08:08 AM LR SURGICAL PATHEDDI PARRA REPORT: LOCAL TITLE: LR SURGICAL PATHOLOGY REPORT STANDARD TITLE: PATHOLOGY REPORT DATE OF NOTE: MAR 17, 2024@08:08:37 ENTRY DATE: MAR 17, 2024@08:08:37 AUTHOR: JOANA HARRIS COSIGNER: URGENCY: STATUS: COMPLETED $APHDR - - - - - - - - - - - - - - - - - - - - - - - - - - - - - - - - - - - - - - - - MEDICAL RECORD COSURGICAL PATHOLOGY - - - - - - - - - - - - - - - - - - - - - - - - - - - - - - - - - - - - - - - - PATHOLOGY REPORT Accession No. [id number] [facility] 4650 - - - - - - - - - - - - - - - - - - - - - - - - - - - - - - - - - - - - - - - - $TEXT Submitted by: SARAHI HEATH Date obtained: Mar 12, 2024 10:57 - - - - - - - - - - - - - - - - - - - - - - - - - - - - - - - - - - - - - - - - Specimen (Received Mar 12, 2024 11:24): 1.LEFT LATERAL/DORSAL TONGUE - - - - - - - - - - - - - - - - - - - - - - - - - - - - - - - - - - - - - - - - BRIEF CLINICAL HISTORY: - - - - - - - - - - - - - - - - - - - - - - - - - - - - - - - - - - - - - - - - PREOPERATIVE DIAGNOSIS: - - - - - - - - - - - - - - - - - - - - - - - - - - - - - - - - - - - - - - - - OPERATIVE FINDINGS: - - - - - - - - - - - - - - - - - - - - - - - - - - - - - - - - - - - - - - - - POSTOPERATIVE DIAGNOSIS: Surgeon/physician: SARAHI HEATH JR =-=-=-=-=-=-=-=-=-=-=-=- =-=-=-=-=-=-=-=-=-=-=-=- =-=-=-=-=-=-=-=-=-=-=-=- =-=-=-= - - - - - - - - - - - - - - - - - - - - - - - - - - - - - - - - - - - - - - - - PATHOLOGY REPORT Accession No. [id number] [facility] 4650 - - - - - - - - - - - - - - - - - - - - - - - - - - - - - - - - - - - - - - - - SEE [employer] [facility] FOR SCANNED REPORT /es/ JOANA DANIELSON [facility] DIRECTOR OF PATHOLOGY Signed Mar 17, 2024@08:08 Performing Laboratory: Surgical Pathology Report Performed By: [employer] Meche MAHAN [IA# [id number]] [id number] [id number] $FTR - - - - - - - - - - - - - - - - - - - - - - - - - - - - - - - - - - - - - - - - (End of report) JOANA HARRIS MD dmw Date Mar 16, 2024 - - - - - - - - - - - - - - - - - - - - - - - - - - - - - - - - - - - - - - - - ALIYAH MANDEL STANDARD FORM 515 ID:[id number] SEX:M :1940 AGE: 84 LOC:*DENTAL PCP: Abigail Peralta /santiago/ JOANA HARRIS DIRECTOR OF PATHOLOGY Signed: 03/17/2024 08:08 JOANA HARRIS [facility] Encounter Notes: All associated encounter notes This section contains the clinical notes associated to the Encounter. Date/Time Encounter Note(s) Provider Source Mar 05, 2024 09:45 AM IMMUNIZATION NOTE: LOCAL TITLE: A99-[id number]/SKIN TEST NOTE STANDARD TITLE: IMMUNIZATION NOTE DATE OF NOTE: MAR 05, 2024@09:45 ENTRY DATE: MAR 05, 2024@09:46:05 AUTHOR: RICK NUNO EXP COSIGNER: URGENCY: STATUS: COMPLETED D62-LLFKTAEAWFIGO/SKIN TEST NOTE Has ADDENDA inadvertently given high dose flu vaccine as opposed to the needed covid vaccine. was called-message left with instructions. notifying pact team of incident. Influenza Immunization-L,N,P,PH,U: Seasonal Flu Vaccine The influenza vaccine clinical reminder is not due at this time. /santiago/ Rick Nuno LICENSED PRACTICAL NURSE Signed: 03/05/2024 10:00 Receipt Acknowledged By: 03/05/2024 11:33 /santiago/ ABIGAIL PERALTA PHYSICIAN 03/05/2024 ADDENDUM STATUS: COMPLETED COVID-19 Immunization-L,N,P,PH,U: Moderna Monovalent (Spikevax) Administered: COVID-19 (MODERNA), MRNA, LNP-S, PF, 50 MCG/0.5 ML (AGES 12+ YEARS) Date Administered: Mar 05, 2024 09:45 Plant Chief: MODERNA [employer]. Lot: [id number] Exp Date: October 30, 2024 ND: [id number] Admin Route/Site: INTRAMUSCULAR/LEFT DELTOID Dosage: 0.5mL Vaccine Information Statement(s): COVID-19 MRNA VACCINE (12+ YRS) VACCINE VIS Mar 27, 2023 (BULGARIAN) Order By: Policy Administered By: Rick Nuno Vaccine administered without complications. /santiago/ Rick uNno LICENSED PRACTICAL NURSE Signed: 03/05/2024 10:54 RICK NUNO [facility]
--- OUTSIDE RECORDS SUMMARY | 2024-09-25 16:05 | XMS_ITS | Encounter Summary ---
Author Name [facility] [place] [facility] [place] Address [address] [place] [address] Care Team Providers Care Executive Vice President Of Sales Name Role Phone ABIGAIL ÁLVAREZ Primary Care [...] PART A Feb 07, 2007 PART A [id number] [phone] ALIYAH MANDEL PATIENT MEDICARE (WNR) MEDICARE (M) PART A Feb 07, 2007 PART A [id number] [phone] ASHWINI MANDELALD PATIENT Selected Encounter This section includes the information on record at [place] for the Encounter. Date/Time Encounter Type Encounter Description Reason Provider Source Aug 27, 2024 06:28 AM CRITICAL CARE FIRST HOUR EMERGENCY DEPT ICD-10-CM I47.20 Ventricular tachycardia, unspecified CRISP,RYAN BRYSON Toni Encounter Template Text not used by [place] Assessments - Encounter Diagnoses This section includes the primary and secondary diagnoses documented for the Encounter. Date/Time Primary/Secondary Diagnosis Diagnosis Name Provider Source Aug 27, 2024 08:50 AM PRIMARY Ventricular tachycardia, unspecified JOSUETomasRYAN [facility] Aug 27, 2024 08:50 AM SECONDARY Athscl heart disease of [place] coronary artery w/o ang pctrs ROWDY HALLNATDOLLY BRYSON [facility] Aug 27, 2024 08:50 AM SECONDARY Nonrheumatic aortic (valve) insufficiency ROYA HALLDOLLY BRYSON [facility] Aug 27, 2024 08:50 AM SECONDARY Presence of coronary angioplasty implant and graft RYAN HALL [facility] Plan of Treatment: Future Appointments (+ 6 months) and Future Tests (+/- 45 days) The Plan of Treatment section includes future care activities for the patient [facility] [place] [facility] This section includes future appointments and future orders which are active, pending or scheduled. Future Appointments This section includes appointments that were scheduled to occur 6 months from the date of the Encounter, up to a maximum of 20 appointments. The data comes from all [facility] facilities. Appointment Date/Time Appointment Type Appointme nt Facility Name Sep 02, 2024 01:00 PM AMBULATORY - NONE [address] [facility] Sep 13, 2024 02:00 PM AMBULATORY - MEDICINE [facility] October 08, 2024 10:30 AM AMBULATORY - MEDICINE [facility] October 12, 2024 09:00 AM AMBULATORY - NONE [address] [facility] October 12, 2024 10:00 AM AMBULATORY - NONE [address] [facility] October 25, 2024 02:00 PM AMBULATORY - SURGERY [facility] Nov 15, 2024 02:00 PM AMBULATORY - MEDICINE [facility] Dec 13, 2024 10:00 AM AMBULATORY - MEDICINE [facility] Dec 21, 2024 10:30 AM AMBULATORY - MEDICINE [facility] Feb 15, 2025 10:00 AM AMBULATORY - MEDICINE [facility] Feb 15, 2025 11:00 AM AMBULATORY - NONE [facility] Active, Pending, and Scheduled Orders This section includes a listing of several types of active, pending, and scheduled orders, including clinic medications orders, diagnostic test orders, procedure orders and consult orders; where the start date of the order is 45 days before the date of the Encounter or 45 days after the date of theEncounter. The data comes from all [place] treatment facilities. Test Date/Time Test Type Test Details Facility Name Jul 29, 2024 02:19 PM Procedure Order CP CO-ECHO FUTURE CARE ([place]) CP CO-ECHO FUTURE CARE-[id number] Proc Tie Tape Machine Operator's Choice [facility] Jul 29, 2024 02:19 PM Procedure Order EKG OUTPAT IENT-CO EKG Needed on: Jul Urgency: ROUTINE Diagnosis/Reason: Ischemia (125.9) [facility] Aug 31, 2024 12:48 AM Laboratory - Blood Bank Order TYPE & SCREEN - LAB BLOOD,PINK/PURPLE (7-9ML) WC [facility] Lab Results: +/- 30 days of the [...] Type Comment Sep 01, 2024 03:14 AM [facility] MAGNESIUM (mg/dL) PLASMA Specimen Type: PLASMA No comment entered. Ordering Provider: LEEROY HUGHES Report Released Date/Time: Aug 31, 2024 09:28 AM Reporting Lab: [address] [phone] Performing Lab: [address] [address] MAGNESIUM (mg/dL) 2.1 mg/dL 1.6-2.6 Sep 01, 2024 03:14 AM [facility] COMPREHENSIVE METABOLIC PANEL PLASMA Specimen Type: PLASMA No comment entered. Ordering Provider: LEEROY HUGHES Report Released Date/Time: Aug 31, 2024 09:28 AM Reporting Lab: [address] [address] Performing Lab: [address] [address] *CREATININE 1.12 mg/dL 0.70-1.30 UREA NITROGEN mg/dL [...] 2020) 66 Sep 01, 2024 03:14 AM [facility] CBC & DIFF BLOOD Specimen Type: BLOOD No comment entered. Ordering Provider: LEEROY HUGHES Report Released Date/Time: Aug 31, 2024 09:28 AM Reporting Lab: [address] [phone] Performing Lab: [address] [address] WBC 15.00 10*3/uL H 3.6-11.2 RBC 4.10 [...] % 0.6 Aug 31, 2024 05:45 AM [facility] ANTI-Xa ([place]) BLOOD Specimen Type: BLOOD Comment: Critical Values: Unfractionated Heparin: > 1.0 IU/mL For Low Molecular Weight Heparin reference ranges contact lab. Ordering Provider: LARRY BARRIOS Report Released Date/Time: Aug 27, 2024 12:18 PM Reporting Lab: [place] [phone] Performing Lab: [address] ANTI-Xa ([place]) <0.04 [IU]/mL 0.3-0.7 Aug 31, 2024 05:45 AM [facility] MAGNESIUM (mg/dL) PLASMA Specimen Ty pe: PLASMA No comment entered. Ordering Provider: LEEROY HUGHES Report Released Date/Time: Aug 30, 2024 11:25 AM Reporting Lab: [place] [phone] Performing Lab: [place] [phone] MAGNESIUM (mg/dL) 2.2 mg/dL 1.6-2.6 Aug 31, 2024 05:45 AM [facility] COMPREHENSIVE METABOLIC PANEL PLASMA Specimen Type: PLASMA No comment entered. Ordering Provider: LEEROY HUGHES Report Released Date/Time: Aug 30, 2024 11:25 AM Reporting Lab: [place] [phone] Performing Lab: [place] [phone] *CREATININE 1.04 mg/dL 0.70-1.30 UREA NITROGEN mg/dL [...] 2020) 72 Aug 31, 2024 05:45 AM [facility] CBC & DIFF BLOOD Specimen Type: BLOOD No comment entered. Ordering Provider: LEEROY HUGHES Report Released Date/Time: Aug 30, 2024 11:25 AM Reporting Lab: [address] [phone] Performing Lab: [address] [address] WBC 9.50 10*3/uL 3.6-11.2 RBC 4.12 10*6/uL [...] % 0.7 Aug 30, 2024 04:23 AM [facility] CMP-NONFASTING ([place]) PLASMA Specimen Type: PLASMA No comment entered. Ordering Provider: LARRY BARRIOS Report Released Date/Time: Aug 29, 2024 12:07 PM Reporting Lab: [address] [address] Performing Lab: [address] [address] *CREATININE 1.10 mg/dL 0.70-1.30 UREA NITROGEN mg/dL [...] 2020) 67 Aug 30, 2024 04:23 AM [facility] CBC & DIFF BLOOD Specimen Type: BLOOD No comment entered. Ordering Provider: LARRY BARRIOS Report Released Date/Time: Aug 29, 2024 12:07 PM Reporting Lab: [address] [address] Performing Lab: [address] [address] WBC 8.80 10*3/uL 3.6-11.2 RBC 3.99 10*6/uL [...] % 0.9 Aug 29, 2024 04:23 AM [facility] CMP-NONFASTING ([place]) PLASMA Specimen Type: PLASMA No comment entered. Ordering Provider: LARRY BARRIOS Report Released Date/Time: Aug 28, 2024 10:54 AM Reporting Lab: [address] Performing Lab: [place] [phone] *CREATININE 1.04 mg/dL 0.70-1.30 UREA NITROGEN mg/dL [...] 2020) 72 Aug 29, 2024 04:23 AM [facility] CBC & DIFF BLOOD Specimen Type: BLOOD No comment entered. Ordering Provider: LARRY BARRIOS Report Released Date/Time: Aug 28, 2024 10:54 AM Reporting Lab: [address] Performing Lab: [address] [address] WBC 8.50 10*3/uL 3.6-11.2 RBC 4.28 10*6/uL [...] % 0.6 Aug 28, 2024 04:50 AM [facility] T4 FREE SERUM Specimen Type: SERUM No comment entered. Ordering Provider: LARRY BARRIOS Report Released Date/Time: Aug 27, 2024 03:47 PM Reporting Lab: [place] [phone] Performing Lab: [place] [phone] T4 FREE 0.8 ng/dL 0.7-1.48 Aug 28, 2024 04:50 AM [facility] TSH SERUM Specimen Type: SERUM No comment entered. Ordering Provider: LARRY BARRIOS Report Released Date/Time: Aug 27, 2024 03:47 PM Reporting Lab: [place] [phone] Performing Lab: [place] [phone] *TSH 1.66 u[IU]/mL 0.47-5.00 Aug 28, 2024 04:50 AM [facility] CMP-NONFASTING ([place]) PLASMA Specimen Type: PLASMA No comment entered. Ordering Provider: LUIS YANES Report Released Date/Time: Aug 28, 2024 03:03 AM Reporting Lab: [place] [phone] Performing Lab: [place] [phone] *CREATININE 0.87 mg/dL 0.70-1.30 UREA NITROGEN mg/dL [...] 2020) 86 Aug 28, 2024 04:50 AM [facility] CBC & DIFF BLOOD Specimen Type: BLOOD No comment entered. Ordering Provider: LUIS YANES Report Released Date/Time: Aug 28, 2024 03:03 AM Reporting Lab: [address] [address] Performing Lab: [address] [phone] WBC 9.20 10*3/uL 3.6-11.2 RBC 4.23 10*6/uL [...] % 0.5 Aug 27, 2024 02:14 PM [facility] ACT.CLOTTING TIME BLOOD Specimen Ty pe: BLOOD No comment entered. Ordering Provider: JEROME DOTY Report Released Date/Time: Aug 27, 2024 02:44 PM Reporting Lab: [address] [address] Performing Lab: [place] [phone] ACT.CLOTTING TIME 153 s H 74-137 Aug 27, 2024 11:30 AM [facility] hsTROP-CO PLASMA Specimen Type: PLASMA Comment: TROP-T-HS Called to: Velvet Bartlett RN at: 1213 on: 08/27/24 by: Jasvir Cunningham Result read back to comply with Joint Commission Ordering Provider: LARRY BARRIOS Report Released Date/Time: Aug 27, 2024 09:20 AM Reporting Lab: [place] [phone] Performing Lab: [place] [phone] hsTROP-CO 1017 HH See Interpretation Aug 27, 2024 08:55 AM [facility] MRSA SURVL NARES DNA NARES Specimen Type: NARES No comment entered. Ordering Provider: JEROME DOTY Report Released Date/Time: Aug 27, 2024 08:46 AM Reporting Lab: [place] [phone] Performing Lab: [place] [phone] MRSA SURVL NARES DNA Negative Negative Aug 27, 2024 08:20 AM [facility] URINALYSIS ([place],EK) URINE Spec imen Type: URINE Comment: Microscopic not indicated Ordering Provider: RYAN HALL Report Released Date/Time: Aug 27, 2024 06:51 AM Reporting Lab: [place] [phone] Performing Lab: [place] [phone] *URINE COLOR Light-Yellow *URINE APPEARANCE Clear Clear *URINE PROTEIN Negative mg/dL Negative-T race *URINE LEUKOCYTE Negative Negative *URINE NITRITE Negative Negative *URINE BLOOD Negative Negative *URINE GLUCOSE Negative mg/dL Negative *URINE KETONES Negative mg/dL Negative *URINE PH 7.0 5.0-8.0 *URINE SPECIFIC GRAVITY 1.011 1.005-1. 030 *URINE BILIRUBIN Negative Negative *URINE UROBILINOGEN Normal mg/dL Normal Aug 27, 2024 06:40 AM [facility] PT/INR PLASMA Specimen Type: PLASMA No comment entered. Ordering Provider: RYAN HALL Report Released Date/Time: Aug 27, 2024 06:51 AM Reporting Lab: [place] [phone] Performing Lab: [place] [phone] *INR 1.0 {INR} *PT 11.4 s 9.4-12.5 Aug 27, 2024 06:40 AM [facility] COMPREHENSIVE METABOLIC PANEL PLASMA Specimen Type: PLASMA No comment entered. Ordering Provider: RYAN HALL Report Released Date/Time: Aug 27, 2024 06:51 AM Reporting Lab: [place] [phone] Performing Lab: [place] [phone] *CREATININE 1.14 mg/dL 0.70-1.30 UREA NITROGEN mg/dL [...] 2020) 64 Aug 27, 2024 06:40 AM [facility] APTT PLASMA Specimen Type: PLASMA No comment entered. Ordering Provider: RYAN HALL Report Released Date/Time: Aug 27, 2024 06:51 AM Reporting Lab: [place] [phone] Performing Lab: [place] [phone] APTT 29.8 s 26.7-39.9 Aug 27, 2024 06:40 AM [facility] hsTROP-CO PLASMA Specimen Type: PLASMA No comment entered. Ordering Provider: RYAN HALL Report Released Date/Time: Aug 27, 2024 06:51 AM Reporting Lab: [address] [phone] Performing Lab: [place] [address] hsTROP-CO 15 See Interpretation Aug 27, 2024 06:40 AM [facility] ANTI-Xa ([place]) BLOOD Specimen Type: BLOOD Comment: Critical Values: Unfractionated Heparin: > 1.0 IU/mL For Low Molecular Weight Heparin reference ranges contact lab. Ordering Provider: RYAN HALL Report Released Date/Time: Aug 27, 2024 07:24 AM Reporting Lab: [address] [phone] Performing Lab: [place] [address] ANTI-Xa ([place]) <0.04 [IU]/mL 0.3-0.7 Aug 27, 2024 06:40 AM [facility] CBC & DIFF BLOOD Specimen Type: BLOOD No comment entered. Ordering Provider: RYAN HALL Report Released Date/Time: Aug 27, 2024 06:51 AM Reporting Lab: [place] [phone] Performing Lab: [place] [phone] WBC 15.70 10*3/uL H 3.6-11.2 RBC 4.80 [...] 0.00 -0.20 Aug 27, 2024 06:40 AM [facility] NTproBNP ([place]) PLASMA Specimen Typ e: PLASMA No comment entered. Ordering Provider: RYAN HALL Report Released Date/Time: Aug 27, 2024 06:51 AM Reporting Lab: [address] [phone] Performing Lab: [address] [phone] NTproBNP ([place]) 410 pg/mL -See Interpre tation Aug 27, 2024 06:40 AM [facility] PATHOLOGIST REVIEW BLOOD Specimen T ype: BLOOD Comment: Reviewed by Dr. Chepe Yu: Reactive Lymphocytes. Ordering Provider: RYAN HALL Report Released Date/Time: Aug 27, 2024 06:51 AM Reporting Lab: [address] [phone] Performing Lab: [address] [phone] PATHOLOGIST REVIEW comment Vital Signs: All taken on the encounter date This section contains inpatient and outpatient Vital Signs collected on the date of the Encounter. Date/Time Temperature Pulse Blood Pressure Respiratory Rate SP02 Pain Height Weight Body Mass Index Source Aug 27, 2024 08:00 PM 97.7 51 138/67 16 95 0 [facility] Aug 27, 2024 08:30 AM 65 138/79 21 98 0 [facility] Aug 27, 2024 08:30 AM 96.8 68 135/74 21 97 0 195.99 31 [facility] Aug 27, 2024 08:19 AM 98.6 0 [facility] Aug 27, 2024 08:15 AM 74 135/71 18 99 [facility] Social History: Smoking Status (Most current) and Tobacco Use (All prior to encounter date) This section includes the most current, and the historical, smoking and tobacco- related health factors from the [place] facility where the Encounter took place. Current Smoking Status This section includes the most current smoking, or tobacco-related health factor, from the [place] facility where the Encounter took place. Date/Time Current Smoking Status Comment Facil ity Apr 30, 2023 01:00 PM VA-TOBACCO FORMER USER [facility] Tobacco Use History This section includes a history of the smoking, or tobacco-related health factors, that were collected on or before the date of the Encounter. The data comes from the [place] facility where the Encounter took place. Date/Time Smoking Status/Tobacco Use Comment F acility Apr 30, 2023 01:00 PM VA-TOBACCO QUIT 15 YRS OR MORE [facility] Apr 04, 2022 09:15 AM VA-TOBACCO FORMER USER [facility] Apr 04, 2022 09:15 AM VA-TOBACCO QUIT 15 YRS OR MORE [facility] Jul 18, 2021 10:13 AM INPT TOBACCO SCREENED NEGATIVE [facility] Apr 27, 2021 07:00 AM INPT TOBACCO SCREENED NEGATIVE [facility] October 31, 2020 02:30 PM INPT TOBACCO SCREENED NEGATIVE [facility] October 08, 2020 10:22 AM INPT TOBACCO SCREENED NEGATIVE [facility] October 07, 2020 07:22 AM VA-TOBACCO FORMER USER [facility] Sep 30, 2020 11:06 AM INPT TOBACCO SCREENED NEGATIVE [facility] Sep 29, 2020 04:05 PM VA-TOBACCO NEVER USED [facility] Jan 17, 2020 10:21 AM VA-TOBACCO FORMER USER [facility] Jan 17, 2020 10:21 AM VA-TOBACCO QUIT 15 YRS OR MORE [facility] Advance Directives: All historical and current Section Date Range: From patient's date of to the date document was created. This section includes ALL of a patient's completed or amended [place] Advance and Rescinded Directives. The entries below indicate that a directive exists for the patient, but an actual copy is not included with this document. The data comes from all [facility]. Date Advance Directives Provider Source October 22, 2022 ADVANCE DIRECTIVE DISCUSSION ARGELIA CHAVEZ [facility] Apr 04, 2022 ADVANCE DIRECTIVE DISCUSSION RAY ROQUE [facility] Sep 30, 2020 ADVANCE DIRECTIVE DISCUSSION ILYA BROWN [facility] Jul 26, 2020 ADVANCE DIRECTIVE DISCUSSION FABY TAMEZ [facility] Apr 17, 2020 ADVANCE DIRECTIVE DISCUSSION ASHLEYLINETTE MCKEON [facility] Jan 17, 2020 ADVANCE DIRECTIVE DISCUSSION ASHLEY,LINETTE MCKEON [facility] Feb 24, 2009 ADVANCE DIRECTIVE HECTOR [facility] Radiology Reports: +/- 30 days [...] the Encounter. The data comes from all [place] treatment facilities. Date/Time Radiology Report Provider Source Sep 01, 2024 06:18 AM CHEST 2 VIEWS: ALIYAH MANDEL [id number] -1940 M Exm Date: SEP 01, 2024@06:18 Req Phys: TERRELL GUO Pat Loc: ICU PCU MED-CO/09-01-2024@07:2 Img Loc: CO-GUEST SPECIALIST Service: CO MEDICINE RICK[place] [address] (Case [id number] COMPLETE) CHEST 2 VIEWS (RAD Detailed) CPT:13902 Reason for Study: Assess pulmonary status S/P Pacemaker/AICD implant Clinical History: Morning after procedure DO NOT raise left arm above shoulder level. Report Status: Verified Date Reported: SEP 01, 2024 Date Verified: SEP 01, 2024 Management Advisor E-Sig:/ES/Aubrie Garcia MD PhD Report: History: Pacemaker [...] Aubrie Garcia MD PhD, CHIEF, CLINICAL SUPPORT (Management Advisor) /MDT AUBRIE GARCIA [facility] Aug 31, 2024 04:27 PM CHEST 1 VIEW: ALIYAH MANDEL [id number] -1940 M Exm Date: AUG 31, 2024@16:27 Req Phys: CAREY GUOHY [place] Pat Loc: ICU PCU MED-CO/09-01-2024@07:2 Img Loc: CO-GUEST SPECIALIST Service: [place] [address] (Case [id number] COMPLETE) CHEST 1 VIEW (RAD Detailed) CPT:19986 Proc Modifiers : PORTABLE Reason for Study: s/p pacemaker Clinical History: Report Status: Verified Date Reported: SEP 01, 2024 Date Verified: SEP 01, 2024 Management Advisor E-Sig:/ES/Aubrie Garcia MD PhD Report: History: Pacemaker [...] Aubrie Garcia MD PhD, CHIEF, CLINICAL SUPPORT (Management Advisor) /MDT AUBRIE GARCIA [facility] Aug 31, 2024 05:05 AM CHEST 1 VIEW: ALIYAH MANDEL [id number] -1940 M Exm Date: AUG 31, 2024@05:05 Req Phys: LEEROY HUGHES Pat Loc: ICU U MED-CO/08-31-2024@07:3 Img Loc: CO-GUEST SPECIALIST Service: [place] [address] (Case [id number] COMPLETE) CHEST 1 VIEW (RAD Detailed) CPT:72547 Reason for Study: Assess pulmonary function s/p pacemaker AICD placement Clinical History: Report Status: Verified Date Reported: AUG 31, 2024 Date Verified: AUG 31, 2024 Management Advisor E-Sig:/ES/Aubrie Garcia MD PhD Report: History: AICD [...] Aubrie Garcia MD PhD, CHIEF, CLINICAL SUPPORT (Management Advisor) /AUBRIE VELEZ [facility] Aug 27, 2024 06:51 AM CHEST 1 VIEW: ALIYAH MANDEL [id number] -1940 M Exm Date: AUG 27, 2024@06:51 Req Phys: RYAN HALL Loc: CO-ED (Req'g Loc) Img Loc: CO-GUEST SPECIALIST Service: Unknown [place] [address] (Case [id number] COMPLETE) CHEST 1 VIEW (RAD Detailed) CPT:64730 Proc Modifiers : PORTABLE Reason for Study: vtach Clinical History: If ordering Portable X-Ray call Tech at [id number] for prompt response Report Status: Verified Date Reported: AUG 27, 2024 Date Verified: AUG 27, 2024 Management Advisor E-Sig:/SANTIAGO/Aubrie Garcia MD PhD Report: History: Ventricular tachycardia. Single view of the chest. Comparison: 05/20/2023. Findings: Lungs are clear. Mild cardiomegaly without pulmonary edema. Soft tissues are unremarkable. Atherosclerosis. Osseous structures demonstrate degenerative changes. Impression: Mild cardiomegaly without pulmonary edema. READING PHYSICIAN: Aubrie Garcia 08/27/2024 7:29 AM Primary Diagnostic Code: NO ALERT REQUIRED Primary Interpreting Staff: Aubrie Garcia MD PhD, CHIEF, CLINICAL SUPPORT (Management Advisor) /AUBRIE VELEZ ROBI [facility] Encounter Notes: All associated encounter notes This section contains the clinical notes associated to the Encounter. Date/Time Encounter Note(s) Provider Source Aug 27, 2024 09:04 AM NURSING NOTE: LOCAL TITLE: CO- ER NURSING TRANSFER NOTE (D) STANDARD TITLE: NURSING NOTE DATE OF NOTE: AUG 27, 2024@09:04 ENTRY DATE: AUG 27, 2024@09:04:33 AUTHOR: BUBBA LÓPEZ EXP COSIGNER: URGENCY: STATUS: COMPLETED [facility] Inpatient transfer to: ICU Report given to: Darlene Pereyra RN Admitting Diagnosis: VTACH, CHEST PAIN* Presented to ED from: Home POSTINGS/PRECAUTIONS: Patient requires isolation: No If yes, Organism: OTHER: FALL RISK: No DESCRIBE: Medication(s) given in ER: 5000unit Heparin bolus, Heparin drip started at 20ml/hr x 8 hours. Amiodarone 150mg over 10 minutes then Amiodarone drip 1mg/min x 6 hours IV present: Yes IVF's: PIV x 2 VITAL SIGNS: Vital Signs (most recent): Temperature: 98.6 F [37.0 C] (08/27/2024 08:19) Pulse: 68 (08/27/2024 08:30) Respiration: 21 (08/27/2024 08:30) B/P: 135/74 (08/27/2024 08:30) Pain: 0 (08/27/2024 08:30) O2 Sat: 97% (08/27/2024 08:30) National Early Warning Score (NEWS): The NEWS total is 4. 1. Temperature (C/F): Score = 0 36.1 - 38.0 C (96.9 - 100.4 F) 2. Pulse: Score = 0 51-90 3. Respirations: Score = 2 21-24 4. Blood Pressure (Only Systolic BP, mmHg): Score = 0 111-219 5. Pulse Oximetry: Score = 0 96% or greater 6. Supplemental oxygen in use: Score = 2 Yes 7. AVPU: Score = 0 Alert 02 Delivery: Nasal Cannula Gross: HOUDINI reason for Gross: Missed medication report viewed prior to transfer. Personal belongings accompanying patient: NO Mode of transport for transfer: Stretcher What was the result of today's C-SSRS? Negative COMMENTS: /santiago/ BUBBA LÓPEZ REGISTERED NURSE Signed: 08/27/2024 09:10 BUBBA LÓPEZ [facility] Aug 27, 2024 07:57 AM ATTENDING ADMISSION EVALUATION NOTE: LOCAL TITLE: CO- HOSPITALIST ADMISSION NOTE (T) STANDARD TITLE: ATTENDING ADMISSION EVALUATION NOTE DATE OF NOTE: AUG 27, 2024@07:57 ENTRY DATE: AUG 27, 2024@07:57:07 AUTHOR: RADHA COLEMAN EXP COSIGNER: URGENCY: STATUS: COMPLETED PCP: ABIGAIL ÁLVAREZ TEAM: CO-BTW PACT *PARMINDER* APCP: S: 84-year-old male with CAD, chronic angina, HTN, HLD, likely ischemic cardiomyopathy, left bundle branch block, aortic regurgitation, sleep apnea, history of malignant melanoma, BPH who presents with chest pain after intercourse this morning leading to urgent presentation to ER where he was found to be in ventricular tachycardia. Amiodarone bolus and drip started and he converted to sinus rhythm. High-sensitivity troponin taken immediately during event is benign. Cardiology consulted. No significant symptoms currently admitted under PCU status in the ICU. Heart rate is in 60s with sinus rhythm noted. No active chest pain. No acute distress. Heart is regular normal rate. Lungs are clear. Abdomen is benign. No leg swelling. Impressions: #Ventricular tachycardia #CAD #HTN #HLD #Ischemic cardiomyopathy #History of left bundle branch block #Moderate aortic regurgitation #ILEANA #History of malignant melanoma #BPH Plans: *Continue amiodarone drip *ACS protocol, trend troponin. Cardiology consultation. *Continue other home medications Rest of plans per resident notes O: T: 98 F [36.7 C] (08/27/2024 06:28) P: 74 (08/27/2024 07:30) R: 16 (08/27/2024 07:30) BP: 131/70 (08/27/2024 07:30) HT: 67 in [170.2 cm] (09/26/2023 07:47) WT: 201.28 lb [91.30 kg] (08/27/2024 06:28) PAIN: 8 (08/27/2024 06:28) GENERAL: HEENT: NECK: CV: RESP: ABD: NEURO: EXT: ADMITTING DX: SURGICAL HX: SEP 26, 2023@08:59 Proc: PHACOEMULSIFICATION & ASPIRATION / LEFT LAB DATA: LAB RESULTS FOR: AUG 27, 2024 INR EK: 1.0 PT(03/09): 11.4 APTT ACL: [...] 68 eGFR (CKD-EPI 2020): 64 TROP-HS-CO: 15 CXR: ECG: A: P: /es/ RADHA COLEMAN HOSPITALIST Signed: 08/27/2024 11:11 RADHA COLEMAN [facility] Aug 27, 2024 07:42 AM NURSING FLOWSHEET: LOCAL TITLE: CO-HEPARIN FLOW SHEET (RD) STANDARD TITLE: NURSING FLOWSHEET DATE OF NOTE: AUG 27, 2024@07:42 ENTRY DATE: AUG 27, 2024@07:43:03 AUTHOR: BUBBA LÓPEZ COSIGNER: URGENCY: STATUS: COMPLETED CO-HEPARIN FLOW SHEET (RD) Has ADDENDA Anti-Xa ACS/AMI Heparin Protocol Initiation* PATIENT WEIGHT: Last 6 Weights from Vitals Measurement DT WEIGHT LB(KG)[BMI] 08/27/2024 06:28 201.28(91.30)[32*] 07/29/2024 13:45 206.4(93.62)[32*] 06/21/2024 14:12 204(92.53)[32*] 02/17/2024 14:00 198(89.81)[31*] 01/29/2024 13:28 200.2(90.81)[31*] 09/26/2023 07:47 203.5(92.31)[32*] Use MOST RECENT documented weight from CURRENT ADMISSION for all heparin calculations Most Recent documented weight from current admission for all heparin calculations in pounds = 201.2lbs / 2.2 = 91.3kg 1. Start at: 14 units/kg/hr (per provider order) 2. Initial Infusion Rate Calculation: 14units/kg/hr X 91.3kg X 0.02 = 25.56 = mL/hr MAX Initial Infusion Rate:20mL/hour Initial Infusion Rate Administered:25.6mL/hr 3. Did the provider order a one time bolus? Yes Bolus dose calculation: Most Recent documented weight from current admission 91.3kg x 70 units/kg = 6391units MAX one time bolus for ACS protocol = 5,000 units Bolus dose administered:5000 units 4. Change to daily AM Anti-Xa monitoring after 2 consecutive therapeutic results (0.30 to 0.70 units/mL) CALL MD IF: - Anti-Xa greater than or equal to 1.0 units/mL (hold drip) - Platelets drop by more that 50% - Bleeding (hold drip) Draw an Anti-Xa 8 hours after each bolus and infusion rate change Next Anti-Xa: Aug@16:00 Independent double check by: AISLINN ACEVEDO (added as expected additional signer) /santiago/ BUBBA LÓPEZ REGISTERED NURSE Signed: 08/27/2024 07:53 Receipt Acknowledged By: 08/27/2024 19:02 /santiago/ AISLINN ACEVEDO REGISTERED NURSE 08/27/2024 ADDENDUM STATUS: COMPLETED MAX Initial Infusion Rate started at :20mL/hour per Max. protocal. /santiago/ BUBBA LÓPEZ REGISTERED NURSE Signed: 08/27/2024 08:01 BUBBA LÓPEZ [facility] Aug 27, 2024 07:22 AM ADMINISTRATIVE NOTE: LOCAL TITLE: CO-1010M ADMISSION CERTIFICATE (D) STANDARD TITLE: ADMINISTRATIVE NOTE DATE OF NOTE: AUG 27, 2024@07:22 ENTRY DATE: AUG 27, 2024@07:22:14 AUTHOR: RYAN HALL COSIGNER: URGENCY: STATUS: COMPLETED Is this patient being admitted for acute suicide? No GENERAL MEDICINE: ADMISSION: RESPONSIBLE ATTENDING: RADHA COLEMAN STAFF ADMISSION DISCUSSED WITH: JEROME DOTY BED COORDINATOR/NOD NOTIFICATION: Pt admitted off tour (after 4pm M-F,weekends and holidays).NOD(pgr [phone]) and AOD (pgr [phone]) have been paged. PATIENT ADMITTED FROM A CLINIC? No ADMISSION DIAGNOSIS: Vtach, chest pain ADMISSION DATE/TIME: Aug@07:23 PATIENT IS BEING ADMITTED FROM: home IF ADMITTED FROM OUTSIDE HOSPITAL: PATIENT PREVIOUSLY RECEIVED HOSPICE SERVICES: No Is the primary admission diagnosis CHF: NO ADMITTING LOCATION: Step-Down Bed \ Gen Med ===== If NO BEDS are available at the [place], DELETE this 1010m and complete a consult for admission to outside facility! ===== . TELEMETRY: ...Yes . Patient requires telemetry immediately OTHER ORDERS/COMMENTS: ok for ICU on PCU status None PATIENT INFORMATION: AGE: 84 SEX: MALE PHONE NUMBER: PCP: ABIGAIL ÁLVAREZ TEAM: CO-KERRY PACT *PARMINDER* CHANGES TO ADMISSION (date/time/panda/specialty/proc edure): Add an addendum to document changes to the admission (date/time/panda/specialty/proc edure), then print the note to [address] (Click File/Print) /es/ RYAN HALL PHYSICIAN Signed: 08/27/2024 07:24 RYAN HALL [facility] Aug 27, 2024 06:38 AM EMERGENCY DEPT NOTE: LOCAL TITLE: CO-PC ER ATTENDING NOTE (D) STANDARD TITLE: EMERGENCY DEPT NOTE DATE OF NOTE: AUG 27, 2024@06:38 ENTRY DATE: AUG 27, 2024@06:38:52 AUTHOR: RYAN HALL EXP COSIGNER: URGENCY: STATUS: COMPLETED HPI and ROS: 84yo male with PMHx CAD with multiple stents (mLAD, RCA x3, PDA, diag 1) 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 drove him to the hospital. Arrived here with V. tach rate 200s and active chest pain to the left side, radiating down left arm, pressure like, squeezing. No LOC. Feels palpitations and SOA, sweaty. No N/v/d Allergies/ADR: Patient has answered NKA PAST MEDICAL HISTORY: Active Problem Coronary arteriosclerosis History of placement of stent for coronary artery disease Benign essential hypertension Benign prostatic hypertrophy with outflow obstruction H/O: angina pectoris Hyperlipidemia Aortic valve regurgitation Current drinker Hiatal hernia GERD - Gastro-Esophageal Reflux Disease ([facility] [id number]) Constipation Exposure to potentially hazardous substance Difficulty in Walking, not elsewhere classified SURGICAL HISTORY: JUN 12, 1992@10:00 Proc: [facility] JUN 21, 1992@09:00 Proc: [facility] APR 27, 2021@11:37 Proc: WIDE LOCAL EXCISION OF UPPER BACK MELANOMA WITH SNETINAL LYMPH NOSE BIOPSY AUG 18, 2023@13:46 Proc: RIGHT PHACOEMULSIFICATION AND ASPIRATION SEP 26, 2023@08:59 Proc: PHACOEMULSIFICATION & ASPIRATION / LEFT Medications: Active Inpatient, Outpatient and Clinic Medications (including Supplies): Pending Clinic Medications Status 1) AMIODARONE INJ 150MG IVPB ONCE PENDING 2) AMIODARONE INJ AMIODARONE HCL 900 MG in D-5-W 500 ML PENDING 1 mg/min x 6 hrs@1 IV Active Outpatient Medications Status 1) AMLODIPINE BESYLATE [...] TAB 81MG MOUTH ONCE A DAY ACTIVE 15 Total Medications Compared newly ordered medications and medication changes to active medications and non-VA medications, and then reviewed medications with patient and/or caregiver. All discrepancies noted and reconciled. Patients, or caregivers, was provided with reconciled medications list and advised to provide to all non VA providers. Potential adverse reactions of new medications were discussed with the patient. PERSONAL / SOCIAL HISTORY: MARITAL STATUS: OCCUPATION: [employer] EMPLOYMENT STATUS: RETIRED SOCIAL HISTORY: MEDICATION RECONCILLATION: I have reviewed the patient's outpatient medication with the patient/caregiver and the list above accurately reflects the medications that the patient is currently taking including any that may be provided from non-VA sources, over the counter medications, nutritional or other supplements IMMUNIZATIONS - NONE FOUND Tetanus/Diptheria immunization on Mar. MAR 09, 2021 TDAP IMMUNIZATIONS - NONE FOUND Vitals T: 97.8 F [36.6 C] (08/10/2024 07:51) P: 49 (07/29/2024 13:45) R: 20 (07/29/2024 13:45) BP:114/66 (07/29/2024 13:45) O2 Sat: 95% (07/29/2024 13:45) Pain: 0 (07/29/2024 13:45) Physical Exam Gen: wdwn male in NAD, A&Ox4 HEENT: EOMI, PERRLA, OPclr, mmm, diaphoretic Neck: supple, no LAD, trachea midline CV: rrr, no m/r/g, nlS1S2 Resp: CTA bilat, no w/r/r Abd: soft, nl act bwl snds, no r/g, no obvious masses nor HSM Extr: no c/c/e, no assymetry, compartments soft, distal pulses wnl all 4 extrm Neuro: CNII-CNXII intact, no focal defecits, strength 5/5 throughout A/P:84yo male with PMHx CAD with multiple stents (mLAD, RCA x3, PDA, diag 1) 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 drove him to the hospital. Arrived here with V. tach rate 200s and active chest pain to the left side, radiating down left arm, pressure like, squeezing. No LOC. Feels palpitations and SOA, sweaty. No N/v/d -Arrived in V. tach at 200, diaphoretic, active chest pain, lungs clear, no focal deficits. Abdomen soft. No significant lower extremity edema. -EKG at 6:32 AM shows V. tach rate 200. Wide-complex regular -V. tach identified, amiodarone bolus 150 given and drip started. This converted him to sinus. -EKG at 6:48 AM shows sinus rhythm rate 72 with left bundle branch block, no scarabossa criteria - EKG at August 17 and prior shows prior LBBB, no acute STEMI -Spoke with Pot Room Supervisor attending, will not activate STEMI right now, but admit on heparin and amiodarone with plan for urgent cath today. May need ICD given EF 40%. -Remains chest pain-free, blood pressure stable. 126/70, no focal deficits. - admit to PCU, stable now, will go to ICU on PCU status Total critical care time: Approximately 53 minutes Due to a high probability of clinically significant, life threatening deterioration, the patient required my highest level of preparedness to intervene emergently and I personally spent this critical care time directly and personally managing the patient. This critical care time included obtaining a history; examining the patient; pulse oximetry; ordering and review of studies; arranging urgent treatment with development of a management plan; evaluation of patient's response to treatment; frequent reassessment; and, discussions with other providers. This critical care time was performed to assess and manage the high probability of imminent, life-threatening deterioration that could result in multi-organ failure. It was exclusive of separately billable procedures and treating other patients and teaching time. Please see MDM section and the rest of the note for further information on patient assessment and treatment. /santiago/ RYAN HALL PHYSICIAN Signed: 08/27/2024 07:[address] [facility] Aug 27, 2024 06:29 AM NURSING EMERGENCY DEPT NOTE: LOCAL TITLE: CO-ED PRIMARY ASSESSMENT (D) STANDARD TITLE: NURSING EMERGENCY DEPT NOTE DATE OF NOTE: AUG 27, 2024@06:29 ENTRY DATE: AUG 27, 2024@07:03:09 AUTHOR: TRU CALDWELL EXP COSIGNER: URGENCY: STATUS: COMPLETED == GENERAL == T: 98 F [36.7 C] (08/27/2024 06:28) P: 200 (08/27/2024 06:28) R: 22 (08/27/2024 06:28) BP: 114/66 (07/29/2024 13:45) PAIN: 8 (08/27/2024 06:28) PULSE OX: 97% (08/27/2024 06:28) WEIGHT: 91.491 kg (08/27/2024) Patient's listed weight above is from this visit. HISTORY OF PAST/PRESENT ILLNESS: See Triage Note. == ONSET == Aug@05:00. == SAFETY == ID Band present and legible == PHYSICAL EXAM == * Physical exam is charted by exception and should be considered within * * the patient's norm unless otherwise documented here. * == NEUROLOGICAL == Level of Consciousness: Awake and alert, person, place, time. Wann Coma Scale Spontaneously (4) Oriented (5) Obeys commands (6) GCS => (15) == AIRWAY == Maintains own airway. == CHEST == SYMPTOMS: Chest pain Heaviness, Shortness of breath at rest, Palpitations, No nausea and No vomiting. EXAM: SYMMETRICAL RHYTHM: Ventricular Tachycardia == PULMONARY == EFFORT: Normal, dyspnea LUNG SOUNDS: Clear to auscultation Bilateral OXYGEN REQUIREMENT: Room Air HOME OXYGEN REQUIREMENT: Room air == SKIN == Diaphoretic, Cool. No rash/lesions. == EXTREMITIES == EXAM: Moves all extremities with range of motion within the patient's norm and strength/tone intact. == VASCULAR ACCESS == Placed in the Emergency Department Peripheral Size: 18g Location: RIGHT FOREARM Aug@06:40 Attempts: (1) Tolerated procedure: Tolerated well Sample sent to Lab: Yes @ Aug@06:40 Peripheral Size: 20g Location: LEFT HAND Aug@06:50 Attempts: (1) Tolerated procedure: Tolerated well Patient converted to normal sinus rhythm with a left bundle branch block after Amiodarone 150mg. drip started at 1mg/min. /santiago/ TRU CALDWELL REGISTERED NURSE Signed: 08/27/2024 07:[address] [facility] Aug 27, 2024 06:28 AM EMERGENCY DEPT TRIAGE NOTE: LOCAL TITLE: EMERGENCY DEPARTMENT TRIAGE STANDARD TITLE: EMERGENCY DEPT TRIAGE NOTE DATE OF NOTE: AUG 27, 2024@06:28 ENTRY DATE: AUG 27, 2024@06:54:17 AUTHOR: TRU CALDWELL EXP COSIGNER: URGENCY: STATUS: COMPLETED Emergency Department/Urgent Care Center Triage Patient age:84 Sex in chart: MALE Mode of Arrival: Private vehicle Mode of Mobility: Walk Chief Complaint: Chest discomfort with rapid heart rate. 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 After intercourse he notes chest discomfort with shortness of breath, diaphoresis and tachycardia. He reports previous episodes of same. Level of Consciousness (AVPU): Alert = Appears aware of and responsive to the environment on their own. Follows commands, opens eyes spontaneously, and tracks objects. Vital Signs: Vital signs previously recorded this visit: Date Vital Measurement Qualifiers 08/27/2024 06:28 Temp F (C) 98 (36.7) Pulse 200 Respir 22 Wt lbs (kg)[BMI] 201.28 (91.30)[32*] Pain 8 POx (L/Min)(%) 97 National Early Warning Score (NEWS): The NEWS total is 8. 1. Temperature (C/F): Score = 0 36.1 - 38.0 C (96.9 - 100.4 F) 2. Pulse: Score = 3 131 or higher 3. Respirations: Score = 2 21-24 4. Blood Pressure (Only Systolic BP, mmHg): Score = 3 90 or lower 5. Pulse Oximetry: Score = 0 96% or greater 6. Supplemental oxygen in use: Score = 0 No 7. AVPU: Score = 0 Alert Action/Interventions Taken: Triaged. Patient Status: Remains on unit Event Synopsis: Triaged. Pain: DVPRS Scale Location: [facility] Pain Rating Scale (DVPRS): 8 Awful, hard to do anything Patient's acceptable pain goal: 4 Distracts me, can do usual activities Pain Alleviating Interventions: None Primary Pain Assessment: Pain Type: Acute Describe Pain (Quality): Heaviness Pain Alleviating Interventions: None Suicide Screen: [place] Suicide Severity Rating Scale (C-SSRS) screener 1. [...] required due to responses to other questions. Emergency Severity Index (MARYELLEN) level: Level 2 Previously documented allergies: Patient has answered NKA Current Problems: Coronary arteriosclerosis I25.10 01/17/2020 HENRI,ABIGAIL NICOLE History of placement of stent for coronary ar 01/17/2020 HENRI,ABIGAIL NICOLE Benign essential hypertension I10. 01/17/2020 HENRI,ABIGAIL NICOLE Benign prostatic hypertrophy with outflow obs 01/17/2020 HENRI,ABIGAIL NICOLE H/O: angina pectoris Z86.79 01/17/2020 HENRI,ABIGAIL NICLOE Hyperlipidemia E78.5 01/17/2020 HENRI,ABIGAIL NICOLE Aortic valve regurgitation I35.1 09/11/2020 [place] Current drinker Z72.89 04/04/2022 HENRI,ABIGAIL NICOLE Hiatal hernia K44.9 04/04/2022 HENRI,ABIGAIL NICOLE GERD - Gastro-Esophageal Reflux Disease ([facility] 04/04/2022 HENRI,ABIGAIL NICOLE Constipation K59.00 04/04/2022 HENRI,ABIGAIL NICOLE Exposure to potentially hazardous substance Z 07/08/2023 HENRI,ABIGAIL NICOLE Difficulty in Walking, not elsewhere classifi 02/17/2024 HENRI,ABIGAIL NICOLE /santiago/ TRU CALDWELL REGISTERED NURSE Signed: 08/27/2024 07:02 TRU CALDWELL [facility]
--- OUTSIDE RECORDS SUMMARY | 2024-09-25 16:05 | XMS_ITS | Encounter Summary ---
Author Name [facility] [place] Organization [facility] [place] [facility] [place] Address [address] [place] [address] Care Team Providers Care Student Support Services Director Name Role Phone HENRI, DENNY Primary Care Provider Unavailabl e Insurance Providers: [...] PART A Feb 07, 2007 PART A [id number] [phone] ALIYAH COREY PATIENT MEDICARE (WNR) MEDICARE (M) PART A Feb 07, 2007 PART A [id number] [phone] TEQUILA ALIYAH PATIENT Selected Encounter This section includes the information on record at [place] for the Encounter. Date/Time Encounter Type Encounter Description Reason Provider Source May 24, 2024 02:00 PM OFFICE O/P EST LOW 20 MIN DERMATOLOGY ICD-10-CM I87.2 Venous insufficiency (chronic) (peripheral) PAYAL RAND Toni Encounter Template Text not used by [place] Assessments - Encounter Diagnoses This section includes the primary and secondary diagnoses documented for the Encounter. Date/Time Primary/Secondary Diagnosis Diagnosis Name Provider Source May 24, 2024 02:43 PM PRIMARY Venous insufficiency (chronic) (peripheral) KINJAL KUO [facility] May 24, 2024 02:43 PM SECONDARY Neoplasm of uncertain behavior of skin CELINEKINJAL MOSER [facility] May 24, 2024 02:43 PM SECONDARY Other [facility]rheic dermatitis [facility] May 24, 2024 02:43 PM SECONDARY Other seborrheic keratosis CELINEKINJAL MOSER [facility] May 24, 2024 02:43 PM SECONDARY Other specified follicular disorders [facility] May 24, 2024 02:43 PM SECONDARY Personal history of malignant melanoma of skin [facility] May 24, 2024 02:43 PM SECONDARY Personal history of other malignant neoplasm of skin [facility] Plan of Treatment: Future Appointments (+ 6 months) and Future Tests (+/- 45 days) The Plan of Treatment section includes future care activities for the patient from all [place] [facility]. This section includes future appointments and future orders which are active, pending or scheduled. Future Appointments This section includes appointments that were scheduled to occur 6 months from the date of the Encounter, up to a maximum of 20 appointments. The data comes from all [facility]. Appointment Date/Time Appointment Type Appointme nt Facility Name Jun 21, 2024 01:30 PM AMBULATORY - NONE [facility] Jun 21, 2024 02:00 PM [facility] Jun 21, 2024 03:00 PM AMBULATORY - PSYCHIATRY [facility] Jul 29, 2024 01:00 PM [facility] Jul 29, 2024 02:00 PM [facility] Aug 10[facility] 2024 08:00 AM AMBULATORY - MEDICINE [facility] Aug 11, 2024 11:00 AM AMBULATORY - NONE [facility] Aug 27, 2024 06:28 AM AMBULATORY - [facility]IC[facility] Sep 02, 2024 01:00 PM AMBULATORY - NONE [facility] Sep 13, 2024 02:00 PM [facility] October 08, 2024 10:30 AM AMBULATORY - MEDICINE [facility] October 12, 2024 09:00 AM AMBULATORY - NONE [facility] October 12, 2024 10:00 AM AMBULATORY - NONE [facility] October 25, 2024 02:00 PM [facility]UL[facility] SUR[facility] Nov 15, 2024 02:00 PM AMBULATORY - MEDICINE [facility]U [facility] Lab Results: +/- 30 days of the encounter This section includes the Chemistry and Hematology Lab Results on record with [place] for the patient. Radiology Reports and Pathology Reports are provided separately, in subsequent sections. Lab Results This section contains the Chemistry/Hematology Results that were resulted 30 days before or 30 daysafter the date of the Encounter. Date/Time Source Result Type Result - Unit Interpretation Reference Range Specimen Type Comment Jun 21, 2024 01:21 PM [facility] CMP-NONFASTING (CO) PLASMA Specimen Type: PLASMA No comment entered. Ordering Provider: ABIGAIL ÁLVAREZ Report Released Date/Time: Feb 17, 2024 02:39 PM Reporting Lab: [address] [id number] Performing Lab: [address] [id number] *CREATININE 1.15 mg/dL 0.7-1.3 UREA NITROGEN mg/dL 18 mg/dL 9-25 GLUCOSE 99 mg/dL 72-99 SODIUM 137 meq/L 136-145 POTASSIUM 4.4 meq/L 3.5-5.0 CALCIUM (mg/dL) 8.9 mg/dL 8.4-10.4 PROTEIN,TOTAL 6.8 g/dL 6.0-8.6 ALBUMIN 4.1 g/dL 3.4-5.0 TOTAL BILIRUBIN 0.5 mg/dL 0.2-1.2 ASPARTATE TRANSAMINASE 11 U/L 5-34 ALANINE AMINOTRANSFERASE 11 U/L 8-40 CHLORIDE 107 meq/L 98-107 CO2 21 meq/L L 22-31 ALKALINE PHOSPHATASE 62 U/L 40-150 EGFR (CKD-EPI 2020) 64 Social History: Smoking Status (Most current) and Tobacco Use (All prior to encounter date) This section includes the most current, and the historical, smoking and tobacco- related health factors from the [place] facility where the Encounter took place. Current Smoking Status This section includes the most current smoking, or tobacco-related health factor, from the [place] facility where the Encounter took place. Date/Time Current Smoking Status Comment Facil ity Apr 30, 2023 01:00 PM VA-TOBACCO FORMER USER [facility] Tobacco Use History This section includes a history of the smoking, or tobacco-related health factors, that were collected on or before the date of the Encounter. The data comes from the [place] facility where the Encounter took place. Date/Time Smoking Status/Tobacco Use Comment F acility Apr 30, 2023 01:00 PM VA-TOBACCO QUIT [address] [facility] Apr 04, 2022 09:15 AM VA-TOBACCO FORMER USER [facility] Apr 04, 2022 09:15 AM VA-TOBACCO QUIT [address] [facility] Jul 18, 2021 10:13 AM INPT TOBACCO SCREENED NEGATIVE [facility] Apr 27, 2021 07:00 AM INPT TOBACCO SCREENED NEGATIVE [facility] October 31, 2020 02:30 PM INPT TOBACCO SCREENED NEGATIVE [facility] October 08, 2020 10:22 AM INPT TOBACCO SCREENED NEGATIVE [facility] October 07, 2020 07:22 AM VA-TOBACCO FORMER USER [facility] Sep 30, 2020 11:06 AM INPT TOBACCO SCREENED NEGATIVE [facility] Sep 29, 2020 04:05 PM VA-TOBACCO NEVER USED [facility] Jan 17, 2020 10:21 AM VA-TOBACCO FORMER USER [facility] Jan 17, 2020 10:21 AM VA-TOBACCO QUIT [address] [facility] Advance Directives: All historical and current Section Date Range: From patient's date of to the date document was created. This section includes ALL of a patient's completed or amended [place] Advance and Rescinded Directives. The entries below indicate that a directive exists for the patient, but an actual copy is not included with this document. The data comes from all [facility]. Date Advance Directives Provider Source October 22, 2022 ADVANCE DIRECTIVE DISCUSSION ARGELIA CHAVEZ [facility] Apr 04, 2022 ADVANCE DIRECTIVE DISCUSSION RAY ROQUE [facility] Sep 30, 2020 ADVANCE DIRECTIVE DISCUSSION ILYA BROWN [facility] Jul 26, 2020 ADVANCE DIRECTIVE DISCUSSION FABY TAMEZ [facility] Apr 17, 2020 ADVANCE DIRECTIVE DISCUSSION ASHLEYLINETTE MCKEON [facility] Jan 17, 2020 ADVANCE DIRECTIVE DISCUSSION ASHLEYDA DIANA MCKEON [facility] Feb 24, 2009 ADVANCE DIRECTIVE HECTOR GUPTA [facility] Pathology Reports: +/- 30 days of the [...] the Encounter. The data comes from all [facility]. Date/Time Pathology Report Provider Source May 28, 2024 09:06 AM LR SURGICAL PATHOL OGY REPORT: LOCAL TITLE: LR SURGICAL PATHOLOGY REPORT STANDARD TITLE: PATHOLOGY REPORT DATE OF NOTE: MAY 28, 2024@09:06:18 ENTRY DATE: MAY 28, 2024@09:06:18 AUTHOR: JOANA HARRIS COSIGNER: URGENCY: STATUS: COMPLETED [...] - - PATHOLOGY REPORT Accession No. [id number] - - - - - - - - - - - - - - - - - - - - - - - - - - - - - - - - - - - - - - - - $TEXT Submitted by: gail kuo Date obtained: May 24, 2024 14:23 - - - - - - - - - - - - - - - - - - - - - - - - - - - - - - - - - - - - - - - - Specimen (Received May 24, 2024 15:05): 1.right luna superior 2.right luna inferior - - - - - - - [...] - - - - POSTOPERATIVE DIAGNOSIS: Surgeon/physician: RONEY RAND MD =-=-=-=-=-=-=-=-=-=-=-=- =-=-=-=-=-=-=-=-=-=-=-=- =-=-=-=-=-=-=-=-=-=-=-=- =-=-=-= - - - - - - - - - - - - - - - - - - - - - - - - - - - - - - - - - - - - - - - - PATHOLOGY REPORT Accession No. [id number] - - - - - - - - - - - - - - - - - - - - - - - - - - - - - - - - - - - - - - - - SEE [employer] IMAGING FOR SCANNED REPORT /es/ JOANA DANIELSON [facility] DIRECTOR OF PATHOLOGY Signed May 28, 2024@09:06 Performing Laboratory: Surgical Pathology Report Performed By: [facility] Meche MAHAN [CLIA# [id number]] [address] [address] [address] $FTR - - - - - - - - - - - - - - - - - - - - - - - - - - - - - - - - - - - - - - - - (End of report) JOANA HARRIS MD dmw Date May 27, 2024 - - - - - - - - - - - - - - - - - - - - - - - - - - - - - - - - - - - - - - - - ALIYAH COREY STANDARD FORM 515 ID:[id number] SEX:M :1940 AGE: 84 LOC:*DERM PCP: Abigail le/ JOANA HARRIS DIRECTOR OF PATHOLOGY Signed: 05/28/2024 09:[address] [facility] Encounter Notes: All associated encounter notes This section contains the clinical notes associated to the Encounter. Date/Time Encounter Note(s) Provider Source Jul 09, 2024 01:44 PM LETTERS: LOCAL TITLE: CO-DERM PHONE BIOPSY F/U LETTER (D) STANDARD TITLE: LETTERS DATE OF NOTE: JUL 09, 2024@13:44 ENTRY DATE: JUL 09, 2024@13:44:49 AUTHOR: GAIL KUO COSIGNER: RONEY RAND URGENCY: STATUS: COMPLETED CO-DERM PHONE BIOPSY F/U LETTER (D) Has ADDENDA [facility] ([id number]) [address] [place] [id number] ext [phone] [place] ext [phone] ALIYAH COREY [facility] [place], [place], [address] Jun Dear Mr. COREY: As we discussed on the phone, your skin biopsy/biopsies results are listed below. There is also an explanation about treatment for each biopsy site if needed. LESION A - Site: right sin superior DIAGNOSIS: benign results (no evidence of skin cancer) solitary acantholytic keratosis TREATMENT PLAN: No further treatment needed. Please keep scheduled appointments and do regular skin checks. LESION B - Site: right luna inferior DIAGNOSIS: benign results (no evidence of skin cancer) solitary acantholytic keratosis TREATMENT PLAN: No further treatment needed. Please keep scheduled appointments and do regular skin checks. If you have any further questions, please contact the [place] [facility] Nurse Navigator at [phone] ext [phone] or at [phone] ext [phone]. Sincerely, [place] [facility] 07/09/2024 ADDENDUM STATUS: COMPLETED mailed letter to patient. /santiago/ LAURA BAR LICENSED PRACTICAL NURSE Signed: 07/09/2024 14:07 Dermatology Clinic: ext [phone] or , ext [phone] [facility] Jun 22, 2024 09:02 AM ADDENDUM: LOCAL TITLE: Addendum STANDARD TITLE: ADDENDUM DATE OF NOTE: JUN 22, 2024@09:02:31 ENTRY DATE: JUN 22, 2024@09:02:32 AUTHOR: ASTRID SULLIVAN EXP COSIGNER: URGENCY: STATUS: COMPLETED Dr. Kuo Please attempt to contact patient again or send letter thank you /santiago/ ASTRID SULLIVAN LICENSED PRACTICAL NURSE Signed: 06/22/2024 09:03 Receipt Acknowledged By: 07/09/2024 13:44 /santiago/ GAIL KUO RESIDENT PHYSICIAN --- Original Document --- 06/07/24 CO-DERM BIOPSY TELEPHONE F/U (D): Patient's Team Information: PCP: ABIGAIL ÁLVAREZ APCP: TEAM: CO-BTW PACT *PARMINDER* Date of Procedure: May Date/Time of Telephone Call: May@09:00 1. Follow-up after: Skin Biopsy of right luna 1) superior and 2) inferior 2. Diagnosis: solitary acantholytic keratosis x2 3. F/U Plan: Benign, and no further treatment needed. Called patient to discuss but no answer. Left HIPAA-compliant VM and will try again later. /santiago/ GAIL KUO RESIDENT PHYSICIAN Signed: 06/07/2024 09:01 /santiago/ RONEY RAND PHYSICIAN Cosigned: 06/07/2024 09:39 Receipt Acknowledged By: 06/14/2024 11:27 /santiago/ ASTRID SULLIVAN LICENSED PRACTICAL NURSE ASTRID SULLIVAN [facility] Jun 07, 2024 09:00 AM DERMATOLOGY TELEPH ONE ENCOUNTER NOTE: LOCAL TITLE: CO-DERM BIOPSY TELEPHONE F/U (D) STANDARD TITLE: DERMATOLOGY TELEPHONE ENCOUNTER NOTE DATE OF NOTE: JUN 07, 2024@09:00 ENTRY DATE: JUN 07, 2024@09:00:16 AUTHOR: GAIL KUO EXP COSIGNER: RONEY RAND URGENCY: STATUS: COMPLETED CO-DERM BIOPSY TELEPHONE F/U (D) Has ADDENDA Patient's Team Information: PCP: ABIGAIL ÁLVAREZ APCP: TEAM: CO-BTW PACT *PARMINDER* Date of Procedure: May Date/Time of Telephone Call: May@09:00 1. Follow-up after: Skin Biopsy of right luna 1) superior and 2) inferior 2. Diagnosis: solitary acantholytic keratosis x2 3. F/U Plan: Benign, and no further treatment needed. Called patient to discuss but no answer. Left HIPAA-compliant VM and will try again later. /santiago/ GAIL KUO RESIDENT PHYSICIAN Signed: 06/07/2024 09:01 /santiago/ RONEY RAND PHYSICIAN Cosigned: 06/07/2024 09:39 Receipt Acknowledged By: 06/14/2024 11:27 /santiago/ ASTRID SULLIVAN LICENSED PRACTICAL NURSE 06/22/2024 ADDENDUM STATUS: COMPLETED Dr. Kuo Please attempt to contact patient again or send letter thank you /santiago/ ASTRID SULLIVAN LICENSED PRACTICAL NURSE Signed: 06/22/2024 09:03 Receipt Acknowledged By: * AWAITING SIGNATURE * GAIL KUO BENJAMIN WARREN [facility] May 24, 2024 02:28 PM NURSING PROCEDURE NOTE: LOCAL TITLE: CO-NURSING SPECIALTY CARE TIME-OUT (D) STANDARD TITLE: NURSING PROCEDURE NOTE DATE OF NOTE: MAY 24, 2024@14:28 ENTRY DATE: MAY 24, 2024@14:28:17 AUTHOR: LAURA BAR EXP COSIGNER: URGENCY: STATUS: COMPLETED CO-NURSING SPECIALTY CARE TIME-OUT Date and time time-out performed: May@14:25 Patient identified by stating full name, AND / full SS#: Yes Persons involved in time-out (including patient) list: Abraham Ortega LPN, Aliyah Corey Consent obtained: VERBAL Site and procedure verified by patient: Yes Location (describe): #1 right luna superior #2 right luna inferior Name of procedure (describe): shave ED&C Medical images confirmed by provider:Yes Site marked by physician / provider: Yes Physician/provider was with patient from time of consent to completed procedure Fire Risk Assessment: Fuel -Drapes/Blankets/Gowns -Sponges -Alcohol Based Prep -Patient hair or skin -Oxygen masks/nasal cannula -Intestinal gases Yes=1 IGNITION -Electrical surgical unit (such as electrocautery) -Laser -Light source fiberoptic -Drill/Burrs -Defibrillation Yes=1 OXIDIZER -Oxygen enriched environment (nasal cannular/tent/MAC) -Nitrous oxide -Surgical site above xiphoid No=0 Fire Risk Score:2= Low Risk with potential to convert to high risk /santiago/ LAURA BAR LICENSED PRACTICAL NURSE Signed: 05/24/2024 14:[address] [facility] May 24, 2024 02:25 PM DERMATOLOGY NOTE: LOCAL TITLE: CO-DERM (D) STANDARD TITLE: DERMATOLOGY NOTE DATE OF NOTE: MAY 24, 2024@14:25 ENTRY DATE: MAY 24, 2024@14:25:29 AUTHOR: GAIL KUO COSIGNER: RONEY RAND URGENCY: STATUS: COMPLETED S: 84 year old MALE established patient with history of melanoma and nonmelanoma skin cancers presenting for six months surveillance. There are two rough spots on the right luna, one of which has been treated twice before with cryosurgery. Otherwise no concerns. Melanoma Profile: Location: right mid back Date of diagnosis: 04/2021 Stage: at least IB ([id number]), Breslow at least 1.6 mm, residual MIS on excision SLNB: negative Prior treatment: WLE by surg onc Doctors involved in melonoma care: Nancy Rand Family history of melanoma: no Per former documentation: Patient did have consultation with heme/onc regarding potential adjuvant therapy, however as patient was over 12 weeks out at the time of consultation, it was recommended that patient continue surveillance as previous studies evaluating adjuvant therapy had initiated treatment within 12 weeks post surgery. Other Skin Hx: -left mid-cheek, BCC s/p excision 05/2021 -left mid-back, BCC s/p C&C 05/2021 O: General: Well appearing. Skin (full body exam sparing genitals): - Trunk and extremities with >50 brown macules, some with mild color variegation or asymmetry, photodistributed brown macules, and scattered red smooth domed papules - 9 mm brown homogenous reticular circular papule on the left dorsal foot (unchanged from prior visit or photos) A/P: # Venous insufficiency Chronic uncontrolled problem. Compression garments were recommended which the patient has at home. 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 Photographs were taken. Biopsy site was prepped with alcohol. Anesthesia was obtained with 1cc of 1% lidocaine with epinephrine. Curettage was performed in the usual fashion. Destruction of the entire lesion was performed with two freeze-thaw cycles of liquid nitrogen. Hemostasis was achieved with Drysol. White petroleum jelly and a bandage were applied to the wound. Verbal and written wound care instructions were provided. The patient left the Dermatology Clinic in good condition. 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 Photographs were taken. Biopsy site was prepped with alcohol. Anesthesia was obtained with 1cc of 1% lidocaine with epinephrine. Curettage was performed in the usual fashion. Destruction of the entire lesion was performed with two freeze-thaw cycles of liquid nitrogen. Hemostasis was achieved with Drysol. White petroleum jelly and a bandage were applied to the wound. Verbal and written wound care instructions were provided. The patient left the Dermatology Clinic in good condition. # Seborrheic keratosis Benign and self-limited skin growth. No treatment indicated. # Tamez angioma Benign appearing without concerning features today. No treatment indicated. 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 -The patient continues to do well with stage IB ([id number]) disease with diagnosis in 2020. -His melanoma is at least stage Ib and was transected at the base at a depth of 1.6 mm, residual excision only demonstrated melanoma in situ. -There is no sign of recurrent, in-transit, regional, or distant disease and no evidence of new primary melanoma. -The importance of self-skin and lymph node exams as well as sun protection/avoidance was reviewed. # sebaceous hyperplasia -Reassured benign. No treatment indicated today. # Seborrheic dermatitis -s/p ketoconazole, pt feels it is too harsh on his scalp -recommended alternating with Selsun Blue and head and shoulders or other similar antidandruff djsy-nmo-neahrvf products # Benign nevi - Trunk and extremities - None with concerning features under dermoscopy - discussed ABCDE's of melanoma - Counseled patient on appropriate sun protection including using SPF of at least 30, reapplying every 2 hours, avoiding the sun during the peak hours of 10am-2pm and wearing protective clothing. 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 Plan: - Continue diligent photoprotection - Perform routine self exams and return with new or changing spots RTC 6 mo Seen with attending Dr. Rand. /santiago/ GAIL KUO RESIDENT PHYSICIAN Signed: 05/24/2024 14:43 /santiago/ RONEY RAND PHYSICIAN Cosigned: 05/24/2024 15:[address] [facility]
--- OUTSIDE RECORDS SUMMARY | 2024-09-25 16:05 | XMS_ITS | Continuity of Care Document ---
Author Name [facility] Address [address] [place] [address] Organization [facility] Care Team Providers Care External Auditor Name Role Phone [facility] Unavailable Unavailable Problems Problem Status Onset Date Problem Type Date of Resolution Comments Source Coronary arteriosclerosis (disorder) Active Condition Added by discern rule CLIN_UH_PROB_C AD from a nursing choronic problems assessment Powerform. Generalized osteoarthritis (disorder) Active Condition Added by discern rule CLIN_UH_PROB_A RTHRITIS from a nursing choronic problems assessment Powerform. Hyperlipidemia (disorder) Active Condition Added by discern rule CLIN_UH_PROB_C HOLESTEROL from a nursing choronic problems assessment Powerform. Hypertensive disorder, systemic arterial (disorder) Active Condition Added by discern rule CLIN_UH_PROB_H YPERTENSION from a nursing choronic problems assessment Powerform. OTH Active Condition Atherosclerotic heart disease of [place] coronary artery with unspecified angina pectoris Diagnosis Chronic total occlusion of coronary artery Diagnosis Old myocardial infarction Diagnosis senior living (current) use of aspirin Diagnosis Cardiomyopathy, unspecified Active Diagnosis Precordial pain Diagnosis Nonrheumatic aortic (valve) insufficiency Diagnosis Paresthesia of skin Diagnosis Left bundle-branch block, unspecified Diagnosis Hyperlipidemia, unspecified Diagnosis Presence of coronary angioplasty implant and graft Diagnosis Personal history of nicotine dependence Diagnosis 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 Diagnosis Other problems related to lifestyle Diagnosis Atherosclerotic heart disease of [place] coronary artery with unstable angina pectoris Diagnosis Family history of ischemic heart disease and other diseases of the circulatory system Diagnosis Unspecified Chest Pain Active Diagnosis Atherosclerosis of coronary artery (disorder) Diagnosis Cardiomyopathy (disorder) Diagnosis Coronary occlusion (disorder) Diagnosis Dyspnea (finding) Diagnosis History of percutaneous transluminal coronary angioplasty (situation) Diagnosis Long-term current use of aspirin (situation) Diagnosis Allergies, Adverse Reactions, Alerts Substance Category Reaction Severity Reaction type Status Date Reported Comments Source NKA Assertion Propensity to adverse reactions to drug Active [facility] Consultation Notes Results Value Date Source Echo Transthoracic Complete OutPt CD:82^ [email or web address] URL Transthoracic Echocardiography Report (TTE) Demographics Patient Name TEQUILA LY Gender Male [facility] Number [id number] Date of Study 01/15/2019 Attending Physician Pernell Choe MD Visit Number [id number] [employer] Yael Aguilar Date of 1940 Interpreting Ferdinand Tamez Physician Age 78 year(s) Ordering Physician Long Ventura DO Procedure Type of Study TTE procedure:Echo Transthoracic Complete, Complete 2D, M-mode, Complete Spectral Doppler, Color Flow. Indications:R07.9 Chest Pain. Study Status: Routine Patient Status: In-Patient Patient Location: Study Location: Bedside Technical Quality: Technically difficult exam due to lung interference. Contrast Medium: Intravenous Definity was given. Height: 67 inches Weight: 195.99 pounds BSA: 2 m HR: 54 bpm BP: 146/77 mmHg Conclusions Summary Left ventricular size was normal. Wall thickness was mildly increased. Systolic function was mildly reduced. EF 50%. Moderately dilated left atrium. Moderate aortic regurgitation. Estimated PASP was normal. Since 11/13/2011 , the aortic regurgitation has become moderate. Signature Findings Left Ventricle Left ventricular size was normal. Wall thickness was mildly increased. Systolic function was mildly reduced. Overall regional wall motion was normal. Abnormal (paradoxical) motion consistent with left bundle branch block. Right Ventricle Right ventricular size was normal. Systolic function was normal. Wall thickness was normal. Left Atrium Moderately dilated left atrium. Right Atrium Right atrial size was normal. Intratrial Septum Not well visualized. Great Vessels Aortic root exhibited normal size. The IVC was normal in size and course. Respirophasic changes were normal. Normal pulmonary vein flow pattern. Pericardial Effusion There was no pericardial effusion. Mitral Valve Mitral valve structure was normal. There was normal leaflet separation. The transmitral velocity was within the normal range. There was no evidence for mitral stenosis. There was no mitral regurgitation. Aortic Valve The aortic valve was trileaflet. Leaflets revealed normal thickness and normal cuspal separation. Transaortic velocity was within the normal range. There was no aortic stenosis. There was moderate aortic regurgitation. Tricuspid Valve Tricuspid valve structure was normal. There was no evidence for tricuspid stenosis. There was no tricuspid regurgitation. Pulmonic Valve Pulmonic valve was normal. Valves Mitral Valve Peak E-Wave: 0.78 m/s Peak A-Wave: 0.94 m/s E/A Ratio: 0.82 Peak Gradient: 2.42 mmHg Deceleration Time: 169.6 msec Aortic Valve Peak Velocity: 1.56 m/s Area (Continuity):2.13 cm Peak Gradient: 9.76 mmHg Mean Velocity: 1.2 m/s AV VTI: 39.81 cm Mean Gradient: 5.99 mmHg AR Vmax: 4.14 m/s AR Peak Gradient: 68.51 mmHg Deceleration Time: 2504.7 msec LVOT Peak Velocity: 1.02 m/s Mean Velocity: 0.83 m/s Peak Gradient: 4.17 mmHg Mean Gradient: 2.86 mmHg LVOT Diameter: 1.99 cm LVOT VTI: 27.23 cm LVOT CO by Doppler: 72.7 l/min Tricuspid Valve TR Velocity: 2.46 m/s Pulmonic Valve Peak Velocity: 1.3 m/s Peak Gradient: 6.74 mmHg Acceleration Time: 72.7 msec Structures Left Atrium LA Dimension: 4.45 cm LA Volume: 73.57 ml LA Volume Index: 37ml/m Left Ventricle Diastolic Dimension: 5.75 cm Systolic Dimension: 4.21 cm Septum Diastolic: 1.16 cm PW Diastolic: 1.14 cm FS: 26.8 % EF Estimated: 50 % LVOT Diameter: 1.99 cm Right Ventricle Diastolic Dimension: 2.6 cm Great Vessels Aorta Aortic Root: 3.69 cm LVOT Diameter: 1.99 cm Encounters Location Location Details Encounter Type Encounter Number Reason For Visit Attending Provider ADM Date DC Date Status Source [facility] [id number] [facility] [id number] 3 MO [facility] General Internal Medicine [facility] AMBULATORY SURG [id number] ANGINA Maxi Jeanmarie [facility] REQ FOR ADMISSION [id number] UNSTABLE ANGINA Alfredo Pisano [facility] DIAGNOSTIC TEST [id number] recent [place] reassess EF Mickey Mortensen [facility] AMBULATORY SURG [id number] HERNIA INGUINAL Carlos Chapman [facility] OUTPATIENT [id number] F/U 4MONTH Mickey Mortensen [facility] [id number] F/U 6MON Mickey Mortensen [facility] Procedures Procedure Code Date Perfomer Comments Source Vasectomy<sup>1</sup> 1983 [facility]
--- OUTSIDE RECORDS SUMMARY | 2024-09-25 16:05 | XMS_ITS | Encounter Summary ---
Author Name [facility] [place] Organization [facility] [place] Address [address] [place] [address] Care Team Providers Care Hood Maker Name Role Phone ABIGAIL ÁLVAREZ Primary Care [...] PART A Feb 07, 2007 PART A [id number] [phone] TEQUILA ALIYAH PATIENT MEDICARE (WNR) MEDICARE (M) PART A Feb 07, 2007 PART A [id number] [phone] ALIYAH MANDEL PATIENT Selected Encounter This section includes the information on record at [place] for the Encounter. Date/Time Encounter Type Encounter Description Reason Provider Source Aug 27, 2024 01:11 PM Inpatient Visit AMBULATORY [facility] Encounter Template Text not used by [facility] Plan of Treatment: Future Appointments (+ 6 months) and Future Tests (+/- 45 days) The Plan of Treatment section includes future care activities for the [facility] [place] [facility] This section includes future appointments and future orders which are active, pending or scheduled. Future Appointments This section includes appointments that were scheduled to occur 6 months from the date of the Encounter, up to a maximum of 20 appointments. The data comes from all [facility]. Appointment Date/Time Appointment Type Appointme nt Facility Name Sep 02, 2024 01:00 PM AMBULATORY - NONE [facility] Sep 13, 2024 02:00 PM AMBULATORY - MEDICINE [facility] October 08, 2024 10:30 AM AMBULATORY - MEDICINE [facility] October 12, 2024 09:00 AM AMBULATORY - NONE [facility] October 12, 2024 10:00 AM AMBULATORY - NONE [facility] October 25, 2024 02:00 PM [facility] Nov 15, 2024 02:00 PM [facility]ULAT[facility] - MEDICINE [facility] Dec 13, 2024 10:00 AM AMBULATORY - MEDICINE [facility] Dec 21, 2024 10:30 AM AMBULATORY - MEDICINE [facility] Feb 15, 2025 10:00 AM AMBULATORY - MEDICINE [facility] Feb 15, 2025 11:00 AM AMBULATORY - NONE [facility] Active, Pending, and Scheduled Orders This section includes a listing of several types of active, pending, and scheduled orders, including clinic medications orders, diagnostic test orders, procedure orders and consult orders; where the start date of the order is 45 days before the date of the Encounter or 45 days after the date of theEncounter. The data comes from all [facility]. Test Date/Time Test Type Test Details Facility Name Jul 29, 2024 02:19 PM Procedure Order CP CO-ECHO FUTURE CARE (MS) CP CO-ECHO FUTURE CARE-589A4 Proc Mixer Wet Pour's Choice [facility] Jul 29, 2024 02:19 PM Procedure Order EKG OUTPAT IENT-CO EKG Needed on: Jul Urgency: ROUTINE Diagnosis/Reason: Ischemia (125.9) [facility] Aug 31, 2024 12:48 AM Laboratory - Blood Bank Order TYPE & SCREEN - LAB BLOOD,PINK/PURPLE (7-9ML) WC [facility] Lab Results: +/- 30 days of the encounter This section includes the Chemistry and Hematology Lab Results on record with [place] for the patient. Radiology Reports and Pathology Reports are provided separately, in subsequent sections. Lab Results This section contains the Chemistry/Hematology Results that were resulted 30 days before or 30 daysafter the date of the Encounter. Date/Time Source Result Type Result - Unit Interpretation Reference Range Specimen Type Comment Sep 01, 2024 03:14 AM [facility] MAGNESIUM (mg/dL) PLASMA Specimen Type: PLASMA No comment entered. Ordering Provider: LEEROY HUGHES Report Released Date/Time: Aug 31, 2024 09:28 AM Reporting Lab: [address] [address] Performing Lab: [place] [phone] MAGNESIUM (mg/dL) 2.1 mg/dL 1.6-2.6 Sep 01, 2024 03:14 AM [facility] COMPREHENSIVE METABOLIC PANEL PLASMA Specimen Type: PLASMA No comment entered. Ordering Provider: LEEROY HUGHES Report Released Date/Time: Aug 31, 2024 09:28 AM Reporting Lab: [address] [address] Performing Lab: [address] [address] *CREATININE 1.12 mg/dL 0.70-1.30 UREA NITROGEN mg/dL [...] 2020) 66 Sep 01, 2024 03:14 AM [facility] CBC & DIFF BLOOD Specimen Type: BLOOD No comment entered. Ordering Provider: LEEROY HUGHES Report Released Date/Time: Aug 31, 2024 09:28 AM Reporting Lab: [address] [address] Performing Lab: [address] [address] WBC 15.00 10*3/uL H 3.6-11.2 RBC 4.10 [...] % 0.6 Aug 31, 2024 05:45 AM [facility] ANTI-Xa ([place]) BLOOD Specimen Type: BLOOD Comment: Critical Values: Unfractionated Heparin: > 1.0 IU/mL For Low Molecular Weight Heparin reference ranges contact lab. Ordering Provider: LARRY BARRIOS Report Released Date/Time: Aug 27, 2024 12:18 PM Reporting Lab: [address] [address] Performing Lab: [place] [phone] ANTI-Xa ([place]) <0.04 [IU]/mL 0.3-0.7 Aug 31, 2024 05:45 AM [facility] MAGNESIUM (mg/dL) PLASMA Specimen Ty pe: PLASMA No comment entered. Ordering Provider: LEEROY HUGHES Report Released Date/Time: Aug 30, 2024 11:25 AM Reporting Lab: [address] [address] Performing Lab: [address] [address] MAGNESIUM (mg/dL) 2.2 mg/dL 1.6-2.6 Aug 31, 2024 05:45 AM [facility] COMPREHENSIVE METABOLIC PANEL PLASMA Specimen Type: PLASMA No comment entered. Ordering Provider: LEEROY HUGHES Report Released Date/Time: Aug 30, 2024 11:25 AM Reporting Lab: [address] [address] Performing Lab: [address] [address] *CREATININE 1.04 mg/dL 0.70-1.30 UREA NITROGEN mg/dL [...] 2020) 72 Aug 31, 2024 05:45 AM [facility] CBC & DIFF BLOOD Specimen Type: BLOOD No comment entered. Ordering Provider: LEEROY HUGHES Report Released Date/Time: Aug 30, 2024 11:25 AM Reporting Lab: [address] [address] Performing Lab: [address] [address] WBC 9.50 10*3/uL 3.6-11.2 RBC 4.12 10*6/uL [...] % 0.7 Aug 30, 2024 04:23 AM [facility] CMP-NONFASTING ([place]) PLASMA Specimen Type: PLASMA No comment entered. Ordering Provider: LARRY BARRIOS Report Released Date/Time: Aug 29, 2024 12:07 PM Reporting Lab: [address] [address] Performing Lab: [address] [address] *CREATININE 1.10 mg/dL 0.70-1.30 UREA NITROGEN mg/dL [...] 2020) 67 Aug 30, 2024 04:23 AM [facility] CBC & DIFF BLOOD Specimen Type: BLOOD No comment entered. Ordering Provider: LARRY BARRIOS Report Released Date/Time: Aug 29, 2024 12:07 PM Reporting Lab: [address] [address] Performing Lab: [address] [address] WBC 8.80 10*3/uL 3.6-11.2 RBC 3.99 10*6/uL [...] % 0.9 Aug 29, 2024 04:23 AM [facility] CMP-NONFASTING ([place]) PLASMA Specimen Type: PLASMA No comment entered. Ordering Provider: LARRY BARRIOS Report Released Date/Time: Aug 28, 2024 10:54 AM Reporting Lab: [address] [address] Performing Lab: [address] [address] *CREATININE 1.04 mg/dL 0.70-1.30 UREA NITROGEN mg/dL [...] 2020) 72 Aug 29, 2024 04:23 AM [facility] CBC & DIFF BLOOD Specimen Type: BLOOD No comment entered. Ordering Provider: LARRY BARRIOS Report Released Date/Time: Aug 28, 2024 10:54 AM Reporting Lab: [facility] [address] [facility] [address] Performing Lab: [address] [address] WBC 8.50 10*3/uL 3.6-11.2 RBC 4.28 10*6/uL [...] % 0.6 Aug 28, 2024 04:50 AM [facility] T4 FREE SERUM Specimen Type: SERUM No comment entered. Ordering Provider: LARRY BARRIOS Report Released Date/Time: Aug 27, 2024 03:47 PM Reporting Lab: [place] [phone] Performing Lab: [place] [phone] T4 FREE 0.8 ng/dL 0.7-1.48 Aug 28, 2024 04:50 AM [facility] TSH SERUM Specimen Type: SERUM No comment entered. Ordering Provider: LARRY BARRIOS Report Released Date/Time: Aug 27, 2024 03:47 PM Reporting Lab: [address] [address] Performing Lab: [place] [phone] *TSH 1.66 u[IU]/mL 0.47-5.00 Aug 28, 2024 04:50 AM [facility] CMP-NONFASTING ([place]) PLASMA Specimen Type: PLASMA No comment entered. Ordering Provider: LUIS YANES Report Released Date/Time: Aug 28, 2024 03:03 AM Reporting Lab: [address] [address] Performing Lab: [place] [phone] *CREATININE 0.87 mg/dL 0.70-1.30 UREA NITROGEN mg/dL [...] 2020) 86 Aug 28, 2024 04:50 AM [facility] CBC & DIFF BLOOD Specimen Type: BLOOD No comment entered. Ordering Provider: LUIS YANES Report Released Date/Time: Aug 28, 2024 03:03 AM Reporting Lab: [address] [address] Performing Lab: [address] [address] WBC 9.20 10*3/uL 3.6-11.2 RBC 4.23 10*6/uL [...] % 0.5 Aug 27, 2024 02:14 PM [facility] ACT.CLOTTING TIME BLOOD Specimen Ty pe: BLOOD No comment entered. Ordering Provider: JEROME DOTY Report Released Date/Time: Aug 27, 2024 02:44 PM Reporting Lab: [address] [address] Performing Lab: [address] [address] ACT.CLOTTING TIME 153 s H 74-137 Aug 27, 2024 11:30 AM [facility] hsTROP-CO PLASMA Specimen Type: PLASMA Comment: TROP-T-HS Called to: Velvet Bartlett RN at: 1213 on: 08/27/24 by: Jasvir Cunningham Result read back to comply with Joint Commission Ordering Provider: LARRY BARRIOS Report Released Date/Time: Aug 27, 2024 09:20 AM Reporting Lab: [address] [address] Performing Lab: [place] [phone] hsTROP-CO 1017 HH See Interpretation Aug 27, 2024 08:55 AM [facility] MRSA SURVL NARES DNA NARES Specimen Type: NARES No comment entered. Ordering Provider: JEROME DOTY Report Released Date/Time: Aug 27, 2024 08:46 AM Reporting Lab: [address] [address] Performing Lab: [place] [phone] MRSA SURVL NARES DNA Negative Negative Aug 27, 2024 08:20 AM [facility] URINALYSIS ([place],EK) URINE Spec imen Type: URINE Comment: Microscopic not indicated Ordering Provider: RYAN HALL Report Released Date/Time: Aug 27, 2024 06:51 AM Reporting Lab: [place] [phone] Performing Lab: [address] [address] *URINE COLOR Light-Yellow *URINE APPEARANCE Clear Clear *URINE PROTEIN Negative mg/dL Negative-T race *URINE LEUKOCYTE Negative Negative *URINE NITRITE Negative Negative *URINE BLOOD Negative Negative *URINE GLUCOSE Negative mg/dL Negative *URINE KETONES Negative mg/dL Negative *URINE PH 7.0 5.0-8.0 *URINE SPECIFIC GRAVITY 1.011 1.005-1. 030 *URINE BILIRUBIN Negative Negative *URINE UROBILINOGEN Normal mg/dL Normal Aug 27, 2024 06:40 AM [facility] PT/INR PLASMA Specimen Type: PLASMA No comment entered. Ordering Provider: RYAN HALL Report Released Date/Time: Aug 27, 2024 06:51 AM Reporting Lab: [place] [phone] Performing Lab: [place] [phone] *INR 1.0 {INR} *PT 11.4 s 9.4-12.5 Aug 27, 2024 06:40 AM [facility] COMPREHENSIVE METABOLIC PANEL PLASMA Specimen Type: PLASMA No comment entered. Ordering Provider: RYAN HALL Report Released Date/Time: Aug 27, 2024 06:51 AM Reporting Lab: [address] [address] Performing Lab: [address] [address] *CREATININE 1.14 mg/dL 0.70-1.30 UREA NITROGEN mg/dL [...] 2020) 64 Aug 27, 2024 06:40 AM [facility] APTT PLASMA Specimen Type: PLASMA No comment entered. Ordering Provider: RYAN HALL Report Released Date/Time: Aug 27, 2024 06:51 AM Reporting Lab: [address] [address] Performing Lab: [place] [phone] APTT 29.8 s 26.7-39.9 Aug 27, 2024 06:40 AM [facility] hsTROP-CO PLASMA Specimen Type: PLASMA No comment entered. Ordering Provider: RYAN HALL Report Released Date/Time: Aug 27, 2024 06:51 AM Reporting Lab: [address] [address] Performing Lab: [address] [address] hsTROP-CO 15 See Interpretation Aug 27, 2024 06:40 AM [facility] NTproBNP ([place]) PLASMA Specimen Typ e: PLASMA No comment entered. Ordering Provider: RYAN HALL Report Released Date/Time: Aug 27, 2024 06:51 AM Reporting Lab: [address] [address] Performing Lab: [address] [address] NTproBNP ([place]) 410 pg/mL -See Interpre tation Aug 27, 2024 06:40 AM [facility] CBC & DIFF BLOOD Specimen Type: BLOOD No comment entered. Ordering Provider: RYAN HALL Report Released Date/Time: Aug 27, 2024 06:51 AM Reporting Lab: [address] [address] Performing Lab: [address] [address] WBC 15.70 10*3/uL H 3.6-11.2 RBC 4.80 [...] 0.00 -0.20 Aug 27, 2024 06:40 AM [facility] ANTI-Xa ([place]) BLOOD Specimen Type: BLOOD Comment: Critical Values: Unfractionated Heparin: > 1.0 IU/mL For Low Molecular Weight Heparin reference ranges contact lab. Ordering Provider: RYAN HALL Report Released Date/Time: Aug 27, 2024 07:24 AM Reporting Lab: [address] [address] Performing Lab: [address] [address] ANTI-Xa ([place]) <0.04 [IU]/mL 0.3-0.7 Aug 27, 2024 06:40 AM [facility] PATHOLOGIST REVIEW BLOOD Specimen T ype: BLOOD Comment: Reviewed by Dr. Chepe Yu: Reactive Lymphocytes. Ordering Provider: RYAN HALL Report Released Date/Time: Aug 27, 2024 06:51 AM Reporting Lab: [address] [address] Performing Lab: [address] [address] PATHOLOGIST REVIEW comment Vital Signs: All taken on the encounter date This section contains inpatient and outpatient Vital Signs collected on the date of the Encounter. Date/Time Temperature Pulse Blood Pressure Respiratory Rate SP02 Pain Height Weight Body Mass Index Source Aug 27, 2024 08:00 PM 97.7 51 138/67 16 95 0 [facility] Aug 27, 2024 08:30 AM 65 138/79 21 98 0 [facility] Aug 27, 2024 08:30 AM 96.8 68 135/74 21 97 0 195.99 31 [facility] Aug 27, 2024 08:19 AM 98.6 0 [facility] Aug 27, 2024 08:15 AM 74 135/71 18 99 [facility] Social History: Smoking Status (Most current) and Tobacco Use (All prior to encounter date) This section includes the most current, and the historical, smoking and tobacco- related health factors from the [place] facility where the Encounter took place. Current Smoking Status This section includes the most current smoking, or tobacco-related health factor, from the [place] facility where the Encounter took place. Date/Time Current Smoking Status Comment Facil ity Apr 30, 2023 01:00 PM VA-TOBACCO FORMER USER [facility] Tobacco Use History This section includes a history of the smoking, or tobacco-related health factors, that were collected on or before the date of the Encounter. The data comes from the [place] facility where the Encounter took place. Date/Time Smoking Status/Tobacco Use Comment F acility Apr 30, 2023 01:00 PM VA-TOBACCO QUIT 15 YRS OR MORE [facility] Apr 04, 2022 09:15 AM VA-TOBACCO FORMER USER [facility] Apr 04, 2022 09:15 AM VA-TOBACCO QUIT 15 YRS OR MORE [facility] Jul 18, 2021 10:13 AM INPT TOBACCO SCREENED NEGATIVE [facility] Apr 27, 2021 07:00 AM INPT TOBACCO SCREENED NEGATIVE [facility] October 31, 2020 02:30 PM INPT TOBACCO SCREENED NEGATIVE [facility] October 08, 2020 10:22 AM INPT TOBACCO SCREENED NEGATIVE [facility] October 07, 2020 07:22 AM VA-TOBACCO FORMER USER [facility] Sep 30, 2020 11:06 AM INPT TOBACCO SCREENED NEGATIVE [facility] Sep 29, 2020 04:05 PM VA-TOBACCO NEVER USED [facility] Jan 17, 2020 10:21 AM VA-TOBACCO FORMER USER [facility] Jan 17, 2020 10:21 AM VA-TOBACCO QUIT 15 YRS OR MORE [facility] Advance Directives: All historical and current Section Date Range: From patient's date of to the date document was created. This section includes ALL of a patient's completed or amended [place] Advance and Rescinded Directives. The entries below indicate that a directive exists for the patient, but an actual copy is not included with this document. The data comes from all [place] facilities. Date Advance Directives Provider Source October 22, 2022 ADVANCE DIRECTIVE DISCUSSION ARGELIA CHAVEZ LOTUS [facility] Apr 04, 2022 ADVANCE DIRECTIVE DISCUSSION RAY ROQUE [facility] Sep 30, 2020 ADVANCE DIRECTIVE DISCUSSION ILYA BROWN [facility] Jul 26, 2020 ADVANCE DIRECTIVE DISCUSSION FABY TAMEZ [facility] Apr 17, 2020 ADVANCE DIRECTIVE DISCUSSION LINETTE RAMIREZ [facility] Jan 17, 2020 ADVANCE DIRECTIVE DISCUSSION LINETTE RAMIREZ [facility] Feb 24, 2009 [facility] Rad[facility] Reports: +/- 30 days of the [...] the Encounter. The data comes from all [place] treatment facilities. Date/Time Radiology Report Provider Source Sep 01, 2024 06:18 AM CHEST 2 VIEWS: ALIYAH MANDEL [id number] -1940 M Exm Date: SEP 01, 2024@06:18 Req Phys: TERRELL GUO Loc: ICU PCU MED-CO/09-01-2024@07:2 Img Loc: CO-PET CARE ASSISTANT [facility] [place] [address] (Case [id number] COMPLETE) CHEST 2 VIEWS (RAD Detailed) CPT:16351 Reason for Study: Assess pulmonary status S/P Pacemaker/AICD implant Clinical History: Morning after procedure DO NOT raise left arm above shoulder level. Report Status: Verified Date Reported: SEP 01, 2024 Date Verified: SEP 01, 2024 Copy Manager E-Sig:/ES/Aubrie Garcia MD PhD Report: History: [...] Aubrie Garcia MD PhD, CHIEF, CLINICAL SUPPORT (Copy Manager) /MDT AUBRIE GARCIA [facility] Aug 31, 2024 04:27 PM CHEST 1 VIEW: ALIYAH MANDEL [id number] -1940 M Exm Date: AUG 31, 2024@16:27 Req Phys: TERRELL GUO Loc: ICU PCU MED-CO/09-01-2024@07:2 Img Loc: CO-PET CARE ASSISTANT [facility] [place] [address] (Case [id number] COMPLETE) CHEST 1 VIEW (RAD Detailed) CPT:19841 Proc Modifiers : PORTABLE Reason for Study: s/p pacemaker Clinical History: Report Status: Verified Date Reported: SEP 01, 2024 Date Verified: SEP 01, 2024 Copy Manager E-Sig:/ES/Aubrie Garcia MD PhD Report: History: [...] Aubrie Garcia MD PhD, CHIEF, CLINICAL SUPPORT (Copy Manager) /AUBRIE VELEZ [facility] Aug 31, 2024 05:05 AM CHEST 1 VIEW: ALIYAH MANDEL JAMIN [id number] -1940 M Exm Date: AUG 31, 2024@05:05 Req Phys: LEEROY HUGHES Pat Loc: ICU PCU MED-CO/08-31-2024@07:3 Img Loc: CO-PET CARE ASSISTANT Service: [facility] [place] [address] (Case [id number] COMPLETE) CHEST 1 VIEW (RAD Detailed) CPT:97001 Reason for Study: Assess pulmonary function s/p pacemaker AICD placement Clinical History: Report Status: Verified Date Reported: AUG 31, 2024 Date Verified: AUG 31, 2024 Copy Manager E-Sig:/ES/Aubrie Garcia MD PhD Report: History: [...] Aubrie Garcia MD PhD, CHIEF, CLINICAL SUPPORT (Copy Manager) /AUBRIE VELEZ [facility] Aug 27, 2024 06:51 AM CHEST 1 VIEW: ALIYAH MANDEL [id number] -1940 M Exm Date: AUG 27, 2024@06:51 Req Phys: RYAN HALL Pat Loc: CO-ED (Req'g Loc) Img Loc: CO-PET CARE ASSISTANT Service: Unknown [place] [address] (Case [id number] COMPLETE) CHEST 1 VIEW (RAD Detailed) CPT:79794 Proc Modifiers : PORTABLE Reason for Study: vtach Clinical History: If ordering Portable X-Ray call Tech at [phone] for prompt response Report Status: Verified Date Reported: AUG 27, 2024 Date Verified: AUG 27, 2024 Copy Manager E-Sig:/ES/Aubrie Garcia MD PhD Report: History: [...] Aubrie Garcia MD PhD, CHIEF, CLINICAL SUPPORT (Copy Manager) /AUBRIE VELEZ [facility]
--- OUTSIDE RECORDS SUMMARY | 2024-09-25 16:06 | XMS_ITS | Encounter Summary ---
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 M[facility]UGHCONOR [facility] May 03, 2024 11:54 AM SECONDARY Dry eye syndrome of bilateral lacrimal glands CONOR MCHUGH [facility] May 03, 2024 11:54 AM SECONDARY Open angle with borderline findings, low risk, bilateral CONOR MCHUGH [facility] May 03, 2024 11:54 AM SECONDARY Presence of intraocular lens [facility]UGH[facility]OR [facility] May 03, 2024 11:54 AM SECONDARY Vertical heterophoria M[facility]UGHCONOR [facility] Plan of Treatment: Future Appointments (+ 6 months) and Future Tests (+/- 45 days) The Plan of Treatment section includes future care activities for the patient from all [place] [facility]. This section includes future appointments and future orders which are active, pending or scheduled. Future Appointments This section includes appointments that were scheduled to occur 6 months from the date of the Encounter, up to a maximum of 20 appointments. The data comes from all [place] treatment facilities. Appointment Date/Time Appointment Type Appointme nt Facility Name May 10, 2024 09:00 AM AMBULATORY - MEDICINE [facility] May 24, 2024 02:00 PM AMBULATORY - MEDICINE [facility] Jun 21, 2024 01:30 PM AMBULATORY - NONE [address] [facility] Jun 21, 2024 02:00 PM AMBULATORY - NONE [address] [facility] Jun 21, 2024 03:00 PM [facility] Jul 29, 2024 01:00 PM AMBULATORY - MEDICINE [facility] Jul 29, 2024 02:00 PM AMBULATORY - MEDICINE [facility] Aug 10, 2024 08:00 AM AMBULATORY - MEDICINE [facility] Aug 11, 2024 11:00 AM AMBULATORY - NONE [facility] Aug 27, 2024 06:28 AM AMBULATORY - MEDICINE [facility] Sep 02, 2024 01:00 PM AMBULATORY - NONE [address] [facility] Sep 13, 2024 02:00 PM AMBULATORY - MEDICINE [facility] October 08, 2024 10:30 AM AMBULATORY - MEDICINE [facility] October 12, 2024 09:00 AM AMBULATORY - NONE [address] [facility] October 12, 2024 10:00 AM AMBULATORY - NONE [address] [facility] October 25, 2024 02:00 PM AMBULATORY - SURGERY [facility] Social History: Smoking Status (Most current) and Tobacco Use (All prior to encounter date) This section includes the most current, and the historical, smoking and tobacco- related health factors from the [place] facility where the Encounter took place. Current Smoking Status This section includes the most current smoking, or tobacco-related health factor, from the [place] facility where the Encounter took place. Date/Time Current Smoking Status Comment Facil ity Apr 30, 2023 01:00 PM VA-TOBACCO FORMER USER [facility] Tobacco Use History This section includes a history of the smoking, or tobacco-related health factors, that were collected on or before the date of the Encounter. The data comes from the [place] facility where the Encounter took place. Date/Time Smoking Status/Tobacco Use Comment F acility Apr 30, 2023 01:00 PM VA-TOBACCO QUIT 15 YRS OR MORE [facility] Apr 04, 2022 09:15 AM VA-TOBACCO FORMER USER [facility] Apr 04, 2022 09:15 AM VA-TOBACCO QUIT 15 YRS OR MORE [facility] Jul 18, 2021 10:13 AM INPT TOBACCO SCREENED NEGATIVE [facility] Apr 27, 2021 07:00 AM INPT TOBACCO SCREENED NEGATIVE [facility] October 31, 2020 02:30 PM INPT TOBACCO SCREENED NEGATIVE [facility] October 08, 2020 10:22 AM INPT TOBACCO SCREENED NEGATIVE [facility] October 07, 2020 07:22 AM VA-TOBACCO FORMER USER [facility] Sep 30, 2020 11:06 AM INPT TOBACCO SCREENED NEGATIVE [facility] Sep 29, 2020 04:05 PM VA-TOBACCO NEVER USED [facility] Jan 17, 2020 10:21 AM VA-TOBACCO FORMER USER [facility] Jan 17, 2020 10:21 AM VA-TOBACCO QUIT 15 YRS OR MORE [facility] Advance Directives: All historical and current Section Date Range: From patient's date of to the date document was created. This section includes ALL of a patient's completed or amended [place] Advance and Rescinded Directives. The entries below indicate that a directive exists for the patient, but an actual copy is not included with this document. The data comes from all [facility]. Date Advance Directives Provider Source October 22, 2022 ADVANCE DIRECTIVE DISCUSSION ARGELIA CHAVEZ [facility] Apr 04, 2022 ADVANCE DIRECTIVE DISCUSSION RAY ROQUE [facility] Sep 30, 2020 ADVANCE DIRECTIVE DISCUSSION ILYA BROWN [facility] Jul 26, 2020 ADVANCE DIRECTIVE DISCUSSION FABY TAMEZ [facility] Apr 17, 2020 ADVANCE DIRECTIVE DISCUSSION LINETTE RAMIREZ [facility] Jan 17, 2020 ADVANCE DIRECTIVE DISCUSSION LINETTE RAMIREZ [facility] Feb 24, 2009 [facility] Pathology Reports: +/- 30 days of [...] the Encounter. The data comes from all [facility]. Date/Time Pathology Report Provider Source May 28, 2024 09:06 AM LR SURGICAL PATHEDDI PARRA REPORT: LOCAL [...] - - PATHOLOGY REPORT Accession No. [id number] [facility] [id number] - - - - - - - - - - - - - - - - - - - - - - - - - - - - - - - - - - - - - - - - $TEXT Submitted by: ivette kuo Date obtained: May 24, 2024 14:23 [...] - - - POSTOPERATIVE DIAGNOSIS: Surgeon/physician: RONEY BUNCH MD =-=-=-=-=-=-=-=-=-=-=-=- =-=-=-=-=-=-=-=-=-=-=-=- =-=-=-=-=-=-=-=-=-=-=-=- =-=-=-= - - [...] - - - - - - SEE [email or web address] IMAGING FOR SCANNED REPORT /es/ JOANA HARRIS DIRECTOR OF PATHOLOGY Signed May 28, 2024@09:06 Performing Laboratory: Surgical Pathology Report Performed By: [facility] Meche MAHAN [IA# [id number]] [id number] [id number] $FTR - - - - - - [...] - - ALIYAH MANDEL STANDARD FORM 515 ID:[id number] SEX:M :1940 AGE: 84 LOC:*DERM PCP: Donna Peralta /santiago/ JOANA HARRIS DIRECTOR OF PATHOLOGY Signed: 05/28/2024 09:06 JOANA HARRIS [facility] Encounter Notes: All associated encounter notes This section contains the clinical notes associated to the Encounter. Date/Time Encounter Note(s) Provider Source May 03, 2024 11:40 AM EYE OUTPATIENT CONSULT: LOCAL TITLE: CO-EYE IMAGE CONSULT STANDARD TITLE: EYE OUTPATIENT CONSULT DATE OF NOTE: MAY 03, 2024@11:40 ENTRY DATE: MAY 03, 2024@11:40:08 AUTHOR: ROBERTA GUNDERSON EXP COSIGNER: URGENCY: STATUS: COMPLETED This consult template is for EYE IMAGES only. Eye Images are attached to this consult. See results in [facility]. See CO-EYE OPHTHALMOLOGY/OPTOMERY progress note for interpretation /santiago/ ROBERTA GUNDERSON HEALTH SEWER PIPE LAYER HELPER (EYE) Signed: 05/03/2024 11:40 ROBERTA GUNDERSON [facility] May 03, 2024 11:15 AM OPTOMETRY NOTE: LOCAL TITLE: CO-EYE OPTOMETRY F/U NOTE STANDARD TITLE: OPTOMETRY NOTE DATE OF NOTE: MAY 03, 2024@11:15 ENTRY DATE: MAY 03, 2024@11:15:16 AUTHOR: CONOR MCHUGH EXP COSIGNER: URGENCY: STATUS: COMPLETED CC/HPI: 84 yr old MALE HERE FOR 6 MTH POST CAT SX. PT REPORTS IT SEEMS LIKE OD SOMETIMES HAS A DOT IN CENTER OF VISION SIMILAR TO OS. PT DENIES ANY PAIN, FLASHES, OR FLOATERS. PT USING AT [facility] QDAY. OCULAR MEDS: AT [facility] QDAY [facility] SC Rx: OD:20/20 OS:2025-2 (BLINKING TO MAKE CLEARER) VA SC FROM LAST EXAM OD:20/20 OS:20/25-2 Current Rx: READERS ONLY ARx OD:+0.00-0.25*046 OS:-0.50-1.25*052 Pupil:PERRL(-) APD EOM: Full and Smooth OU CF:FTFC OU Tonometry ORA IOPCC CH IOPG WS OD: 11.3 9.0 8.3 8.3 OS: 12.6 8.3 8.9 6.9 Open Angles OU Negative NVI OU Dilated c 1% T and 2.5% P OU @10:46AM Above Completed by Elizabeth Castro, COA Pt reports black spot in OS>OD, started about 1 week ago. Reports OS started about 3-4 months ago before cataract surgery. 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 -6 months for DFE/OCT (mac cube/raster/MCA) Large C/D OU -IOPs today 04/20 (ORA) -pachs 497/491 -(-) Fhx glaucoma -RNFL (05/03/24) OD borderline S thinning; avg 78 - stable per GPA OS wnl; avg 85 - stable per GPA -GCA OD borderline IN thinning; avg 69 OS borderline SN, S, I, advanced ST, IT thinning, avg 65 -HVF 24-2 (10/01/22) OD low reliability, FL 14/14, FP 1%, FN 0%, GHT borderline, VFI 97%, MD -1.64 inferior central depression OS low reliability, FL 4/14, FP 0%, FN 0%, GHT WNL, VFI 99%, MD - 1.08 1 point depression S to fixation -does not correlate with OCT values -questionable lid involvement; tape lids next VF 24-2 at next visit -1 year for DFE/OCT (RNFL/GCA/GPA/panomap) H/O Ocular migraine -flashes of light, starts weak then gets brighter, off to one side, it's there with eyes opened and closed, started about 15-20 years ago, lasts about 20 minutes, occurs 4-5 times per years, a couple of episodes since JAMIN, no associated headaches, no associated symptoms, no h/o migraines, pt reports no change in frequency or duration since onset 15-20 years ago -pt ed try to identify triggers Pseudophakia OU -monitor. Dry eye syndrome OU -pt ed AT QID OU and warm compresses BID OU -monitor. Right Hyper -notices intermittently at distance and near, able to focus to fuse images, started about 5+ years ago, notices it more when he is tired -continue without prism at this time Refractive error OU -no rx issued, pt wears PAL -pt ed proper working distance and high illumination with reading RTC: 6 months for DFE/OCT (mac cube/raster/MCA) and 1 year for DFE/OCT (RNFL/GCA/GPA/panomap/mac cube/raster/MCA) or prn {x} patient educated on above conditions and med rec performed {x} I reviewed the residential service technician work up and agree with the documentation, with any exceptions as noted above SERVICE CONNECTED CONDITIONS SEIZURE DISORDER 10% SC ARTERIOSCLEROTIC HEART DISEASE 60% SC SCARS 0% SC HEMOGLOBIN A1C, BLOOD, 08/22/23@0944 5.4 % (4.0 - 6.0) BP: 100/53 (03/12/2024 09:16) Active Problem Coronary arteriosclerosis History of placement of stent for coronary artery disease Benign essential hypertension Benign prostatic hypertrophy with outflow obstruction H/O: angina pectoris Hyperlipidemia Aortic valve regurgitation Current drinker Hiatal hernia GERD - Gastro-Esophageal Reflux Disease ([facility] [id number]) Constipation Exposure to potentially hazardous substance Difficulty in Walking, not elsewhere classified Medications: Active Inpatient, Outpatient and Clinic Medications (including Supplies): Active Outpatient Medications Status ========= 1) AMLODIPINE BESYLATE 10MG TAB TAKE ONE TABLET BY MOUTH ACTIVE EVERY MORNING FOR HEART/BLOOD PRESSURE 2) CARBOXYMETHYLCELLULOSE NA 0.5%(PF)OP JOSE INSTILL 1 ACTIVE DROP IN BOTH EYES FOUR TIMES A DAY FOR DRY EYES 3) CHOLECALCIF 25MCG (D3-1,000UNIT) TAB TAKE ONE TABLET ACTIVE BY MOUTH EVERY MORNING FOR VITAMIN D DEFICIENCY 4) CLOPIDOGREL BISULFATE 75MG TAB TAKE ONE TABLET BY ACTIVE MOUTH ONCE A DAY TO PREVENT BLOOD CLOTS 5) CYANOCOBALAMIN 1000MCG TAB TAKE ONE TABLET BY MOUTH ACTIVE EVERY MORNING FOR VITAMIN DEFICIENCY 6) ISOSORBIDE MONONITRATE 120MG SA TAB TAKE ONE TABLET ACTIVE BY MOUTH ONCE A DAY TO PREVENT CHEST PAIN TAKE ON EMPTY STOMACH. SWALLOW WHOLE. DO NOT CRUSH OR CHEW. 7) LISINOPRIL 20MG TAB TAKE ONE-HALF TABLET BY MOUTH ACTIVE EVERY MORNING FOR HEART OR HIGH BLOOD PRESSURE 8) NITROGLYCERIN 0.4MG SL TAB DISSOLVE ONE TABLET UNDER ACTIVE THE TONGUE EVERY MORNING NEEDED FOR CHEST PAIN. IF NO IMPROVEMENT AFTER FIRST DOSE CALL 9-1-1. MAY TAKE 2 ADDITIONAL DOSES, 5 MINUTES APART. 9) RANOLAZINE 1000MG SA TAB TAKE ONE TABLET BY MOUTH TWO ACTIVE TIMES A DAY FOR HEART/PREVENT CHEST PAIN, *SWALLOW WHOLE- DO NOT CRUSH,BREAK OR CHEW* 10) ROSUVASTATIN CA 40MG TAB TAKE ONE TABLET BY MOUTH AT ACTIVE BEDTIME FOR CHOLESTEROL. REPORT ANY UNEXPLAINED MUSCLE PAIN OR WEAKNESS TO YOUR DOCTOR. 11) TAMSULOSIN HCL 0.4MG CAP TAKE ONE CAPSULE BY MOUTH ACTIVE ONCE A DAY FOR PROSTATE TAKE WITH FOOD Active Non-VA Medications Status ========= 1) Non-VA ASPIRIN 81MG EC TAB 81MG MOUTH ONCE A DAY ACTIVE 12 Total Medications Compared newly ordered medications and medication changes to active medications and non-VA medications, and then reviewed medications with patient and/or caregiver. All discrepancies noted and reconciled. Patients, or caregivers, was provided with reconciled medications list and advised to provide to all non [place] providers. Potential adverse reactions of new medications were discussed with the patient. Allergy: Patient has answered NKA /santiago/ CONOR MCHUGH O.D. [employer] Signed: 05/03/2024 11:57 CONOR MCHUGH [facility] May 03, 2024 10:33 AM DATA BASE DESIGN ANALYST NOTE: LOCAL TITLE: CO-EYE OPHTHALMOLOGY/OPTOMETRY SEWER PIPE LAYER HELPER NOTE (D) STANDARD TITLE: DATA BASE DESIGN ANALYST NOTE DATE OF NOTE: MAY 03, 2024@10:33 ENTRY DATE: MAY 03, 2024@10:33:04 AUTHOR: ELIZABETH CASTRO EXP COSIGNER: URGENCY: STATUS: COMPLETED CC/HPI: 84 yr old MALE HERE FOR 6 MTH POST CAT SX. PT REPORTS IT SEEMS LIKE OD SOMETIMES HAS A DOT IN CENTER OF VISION SIMILAR TO OS. PT DENIES ANY PAIN, FLASHES, OR FLOATERS. PT USING AT [facility]. OCULAR MEDS: AT [facility] QDAY VA SC Rx: OD:20/20 OS:20/25-2 (BLINKING TO MAKE CLEARER) VA SC FROM LAST EXAM OD:20/20 OS:20/25-2 Current Rx: READERS ONLY ARx OD:+0.00-0.25*046 OS:-0.50-1.25*052 Pupil:PERRL(-) APD EOM: Full and Smooth OU CF:FTFC OU Tonometry ORA IOPCC CH IOPG WS OD: 11.3 9.0 8.3 8.3 OS: 12.6 8.3 8.9 6.9 Open Angles OU Negative NVI OU Dilated c 1% T and 2.5% P OU @10:46AM Above Completed by Elizabeth Castro, COA COPY OF LAST VISIT EXAM, ASSESSMENT AND PLAN. SEE TODAYS PROVIDERS NOTE FOR UPDATED ASSESSMENT AND PLAN. DATE OF LAST EYE EXAM: 12/08/2023 MD EXAM: PUPILS: PERRL, no APD CONFRONTATION VISUAL VARELA: full to count fingers OD and OS EOM: full OU BALANCE: fl RH in primary, left, and right gazes at distance EXTERNAL: MGD OU SLIT LAMP EXAM: Conjunctiva/Sclera: white and quiet OU Cornea: clear OU Iris: WNL OU Anterior chamber: deep and quiet OU Lens: PCIOL OU A/P: #MGD/BRENDA OU---symptomatically improved. Cont WCs at least once daily, ATs TID. #Intermittent diplopia---minimal comitant RH on balance exam today. Potentially amenable to prism but does not desire FTW glasses at this time. /santiago/ ELIZABETH CASTRO HEALTH SEWER PIPE LAYER HELPER (EYE) Signed: 05/03/2024 10:47 ELIZABETH CASTRO [facility]
--- OUTSIDE RECORDS SUMMARY | 2024-09-25 16:06 | XMS_ITS | Encounter Summary ---
Author Name [facility] [facility] [place] Address [address] [place] [address] Care Team Providers Care Web Operations Manager Name Role Phone ABIGAIL ÁLVAREZ Primary Care [...] PART A Feb 07, 2007 PART A [id number] [phone] ALIYAH MANDEL PATIENT MEDICARE (WNR) MEDICARE (M) PART A Feb 07, 2007 PART A [id number] [phone] TEQUILA ALIYAH PATIENT Selected Encounter This section includes the information on record at [place] for the Encounter. Date/Time Encounter Type Encounter Description Reason Pro vider Source Aug 27, 2024 08:46 AM Inpatient Visit [facility]OSPITAL [facility] Encounter Template Text not used by [facility] Plan of Treatment: Future Appointments (+ 6 months) and Future Tests (+/- 45 days) The Plan of Treatment section includes future care activities for the patient from all [facility] treatment[facility]ilities. This section includes future appointments and future orders which are active, pending or scheduled. Future Appointments This section includes appointments that were scheduled to occur 6 months from the date of the Encounter, up to a maximum of 20 appointments. The data comes from all [facility]. Appointment Date/Time Appointment Type Appointme nt Facility Name Sep 02, 2024 01:00 PM AMBULATORY - NONE [facility] Sep 13, 2024 02:00 PM AMBULATORY - MEDICINE [facility] October 08, 2024 10:30 AM AMBULATORY - MEDICINE [facility] October 12, 2024 09:00 AM AMBULATORY - NONE [facility] October 12, 2024 10:00 AM AMBULATORY - NONE [facility] October 25, 2024 02:00 PM [facility] Nov 15, 2024 02:00 PM AMBULATORY - MEDICINE [facility] Dec 13, 2024 10:00 AM AMBULATORY - MEDICINE [facility] Dec 21, 2024 10:30 AM AMBULATORY - MEDICINE [facility] Feb 15, 2025 10:00 AM AMBULATORY - MEDICINE [facility] Feb 15, 2025 11:00 AM AMBULATORY - NONE [facility] Active, Pending, and Scheduled Orders This section includes a listing of several types of active, pending, and scheduled orders, including clinic medications orders, diagnostic test orders, procedure orders and consult orders; where the start date of the order is 45 days before the date of the Encounter or 45 days after the date of theEncounter. The data comes from all [facility]. Test Date/Time Test Type Test Details Facility Name Jul 29, 2024 02:19 PM Procedure Order CP CO-ECHO FUTURE CARE (HI) CP CO-ECHO FUTURE CARE-[id number] Proc Management Accountant's Choice [facility] Jul 29, 2024 02:19 PM Procedure Order EKG OUTPAT IENT-CO EKG Needed on: Jul Urgency: ROUTINE Diagnosis/Reason: Ischemia (125.9) [facility] Aug 31, 2024 12:48 AM Laboratory - Blood Bank Order TYPE & SCREEN - LAB BLOOD,PINK/PURPLE (7-9ML) WC [facility] Lab Results: +/- 30 days of the encounter This section includes the Chemistry and Hematology Lab Results on record with [place] for the patient. Radiology Reports and Pathology Reports are provided separately, in subsequent sections. Lab Results This section contains the Chemistry/Hematology Results that were resulted 30 days before or 30 daysafter the date of the Encounter. Date/Time Source Result Type Result - Unit Interpretation Reference Range Specimen Type Comment Sep 01, 2024 03:14 AM [facility] MAGNESIUM (mg/dL) PLASMA Specimen Type: PLASMA No comment entered. Ordering Provider: LEEROY HUGHES Report Released Date/Time: Aug 31, 2024 09:28 AM Reporting Lab: [address] [phone] Performing Lab: [address] [phone] MAGNESIUM (mg/dL) 2.1 mg/dL 1.6-2.6 Sep 01, 2024 03:14 AM [facility] COMPREHENSIVE METABOLIC PANEL PLASMA Specimen Type: PLASMA No comment entered. Ordering Provider: LEEROY HUGHES Report Released Date/Time: Aug 31, 2024 09:28 AM Reporting Lab: [address] [phone] Performing Lab: [address] [address] *CREATININE 1.12 mg/dL 0.70-1.30 UREA NITROGEN mg/dL [...] 2020) 66 Sep 01, 2024 03:14 AM [facility] CBC & DIFF BLOOD Specimen Type: BLOOD No comment entered. Ordering Provider: LEEROY HUGHES Report Released Date/Time: Aug 31, 2024 09:28 AM Reporting Lab: [address] [address] Performing Lab: [address] WBC 15.00 10*3/uL H 3.6-11.2 RBC 4.10 [...] % 0.6 Aug 31, 2024 05:45 AM [facility] ANTI-Xa (CO) BLOOD Specimen Type: BLOOD Comment: Critical Values: Unfractionated Heparin: > 1.0 IU/mL For Low Molecular Weight Heparin reference ranges contact lab. Ordering Provider: LARRY BARRIOS Report Released Date/Time: Aug 27, 2024 12:18 PM Reporting Lab: [address] Performing Lab: [address] ANTI-Xa (CO) <0.04 [IU]/mL 0.3-0.7 Aug 31, 2024 05:45 AM [facility] MAGNESIUM (mg/dL) PLASMA Specimen Ty pe: PLASMA No comment entered. Ordering Provider: LEEROY HUGHES Report Released Date/Time: Aug 30, 2024 11:25 AM Reporting Lab: [address] [phone] Performing Lab: [address] [address] MAGNESIUM (mg/dL) 2.2 mg/dL 1.6-2.6 Aug 31, 2024 05:45 AM [facility] COMPREHENSIVE METABOLIC PANEL PLASMA Specimen Type: PLASMA No comment entered. Ordering Provider: LEEROY HUGHES Report Released Date/Time: Aug 30, 2024 11:25 AM Reporting Lab: [address] Performing Lab: [address] *CREATININE 1.04 mg/dL 0.70-1.30 UREA NITROGEN [...] 2020) 72 Aug 31, 2024 05:45 AM [facility] CBC & DIFF BLOOD Specimen Type: BLOOD No comment entered. Ordering Provider: LEEROY HUGHES Report Released Date/Time: Aug 30, 2024 11:25 AM Reporting Lab: [address] [phone] Performing Lab: [address] [address] WBC 9.50 10*3/uL 3.6-11.2 RBC 4.12 10*6/uL [...] % 0.7 Aug 30, 2024 04:23 AM [facility] CMP-NONFASTING ([place]) PLASMA Specimen Type: PLASMA No comment entered. Ordering Provider: LARRY BARRIOS Report Released Date/Time: Aug 29, 2024 12:07 PM Reporting Lab: [address] [phone] Performing Lab: [address] [address] *CREATININE 1.10 mg/dL 0.70-1.30 UREA NITROGEN mg/dL [...] 2020) 67 Aug 30, 2024 04:23 AM [facility] CBC & DIFF BLOOD Specimen Type: BLOOD No comment entered. Ordering Provider: LARRY BARRIOS Report Released Date/Time: Aug 29, 2024 12:07 PM Reporting Lab: [address] [address] Performing Lab: [address] [phone] WBC 8.80 10*3/uL 3.6-11.2 RBC 3.99 10*6/uL [...] % 0.9 Aug 29, 2024 04:23 AM [facility] CMP-NONFASTING (CO) PLASMA Specimen Type: PLASMA No comment entered. Ordering Provider: LARRY BARRIOS Report Released Date/Time: Aug 28, 2024 10:54 AM Reporting Lab: [address] [address] Performing Lab: [address] [phone] *CREATININE 1.04 mg/dL 0.70-1.30 UREA NITROGEN mg/dL [...] 2020) 72 Aug 29, 2024 04:23 AM [facility] CBC & DIFF BLOOD Specimen Type: BLOOD No comment entered. Ordering Provider: LARRY BARRIOS Report Released Date/Time: Aug 28, 2024 10:54 AM Reporting Lab: [facility] [address] [facility] [address] Performing Lab: [address] [address] WBC 8.50 10*3/uL 3.6-11.2 RBC 4.28 10*6/uL [...] % 0.6 Aug 28, 2024 04:50 AM [facility] T4 FREE SERUM Specimen Type: SERUM No comment entered. Ordering Provider: LARRY BARRIOS Report Released Date/Time: Aug 27, 2024 03:47 PM Reporting Lab: [place] [phone] Performing Lab: [place] [phone] T4 FREE 0.8 ng/dL 0.7-1.48 Aug 28, 2024 04:50 AM [facility] TSH SERUM Specimen Type: SERUM No comment entered. Ordering Provider: LARRY BARRIOS Report Released Date/Time: Aug 27, 2024 03:47 PM Reporting Lab: [address] [address] Performing Lab: [place] [phone] *TSH 1.66 u[IU]/mL 0.47-5.00 Aug 28, 2024 04:50 AM [facility] CMP-NONFASTING ([place]) PLASMA Specimen Type: PLASMA No comment entered. Ordering Provider: LUIS YANES Report Released Date/Time: Aug 28, 2024 03:03 AM Reporting Lab: [address] [phone] Performing Lab: [place] [phone] *CREATININE 0.87 mg/dL 0.70-1.30 UREA NITROGEN mg/dL [...] 2020) 86 Aug 28, 2024 04:50 AM [facility] CBC & DIFF BLOOD Specimen Type: BLOOD No comment entered. Ordering Provider: LUIS YANES Report Released Date/Time: Aug 28, 2024 03:03 AM Reporting Lab: [address] [phone] Performing Lab: [address] [address] WBC 9.20 10*3/uL 3.6-11.2 RBC 4.23 10*6/uL [...] % 0.5 Aug 27, 2024 02:14 PM [facility] ACT.CLOTTING TIME BLOOD Specimen Ty pe: BLOOD No comment entered. Ordering Provider: JEROME DOTY Report Released Date/Time: Aug 27, 2024 02:44 PM Reporting Lab: [address] [phone] Performing Lab: [address] [address] ACT.CLOTTING TIME 153 s H 74-137 Aug 27, 2024 11:30 AM [facility] hsTROP-CO PLASMA Specimen Type: PLASMA Comment: TROP-T-HS Called to: Velvet Bartlett RN at: 1213 on: 08/27/24 by: Jasvir Cunningham Result read back to comply with Joint Commission Ordering Provider: LARRY BARRIOS Report Released Date/Time: Aug 27, 2024 09:20 AM Reporting Lab: [address] Performing Lab: [place] [phone] hsTROP-CO 1017 HH See Interpretation Aug 27, 2024 08:55 AM [facility] MRSA SURVL NARES DNA NARES Specimen Type: NARES No comment entered. Ordering Provider: JEROME DOTY Report Released Date/Time: Aug 27, 2024 08:46 AM Reporting Lab: [address] Performing Lab: [place] [phone] MRSA SURVL NARES DNA Negative Negative Aug 27, 2024 08:20 AM [facility] URINALYSIS (ZOILA,[place],CO,EK) URINE Spec imen Type: URINE Comment: Microscopic not indicated Ordering Provider: RYAN HALL Report Released Date/Time: Aug 27, 2024 06:51 AM Reporting Lab: [address] Performing Lab: [address] *URINE COLOR Light-Yellow *URINE APPEARANCE Clear Clear *URINE PROTEIN Negative mg/dL Negative-T race *URINE LEUKOCYTE Negative Negative *URINE NITRITE Negative Negative *URINE BLOOD Negative Negative *URINE GLUCOSE Negative mg/dL Negative *URINE KETONES Negative mg/dL Negative *URINE PH 7.0 5.0-8.0 *URINE SPECIFIC GRAVITY 1.011 1.005-1. 030 *URINE BILIRUBIN Negative Negative *URINE UROBILINOGEN Normal mg/dL Normal Aug 27, 2024 06:40 AM [facility] PT/INR PLASMA Specimen Type: PLASMA No comment entered. Ordering Provider: RYAN HALL Report Released Date/Time: Aug 27, 2024 06:51 AM Reporting Lab: [address] Performing Lab: [place] [phone] *INR 1.0 {INR} *PT 11.4 s 9.4-12.5 Aug 27, 2024 06:40 AM [facility] APTT PLASMA Specimen Type: PLASMA No comment entered. Ordering Provider: RYAN HALL Report Released Date/Time: Aug 27, 2024 06:51 AM Reporting Lab: [address] [address] Performing Lab: [place] [phone] APTT 29.8 s 26.7-39.9 Aug 27, 2024 06:40 AM [facility] COMPREHENSIVE METABOLIC PANEL PLASMA Specimen Type: PLASMA No comment entered. Ordering Provider: RYAN HALL Report Released Date/Time: Aug 27, 2024 06:51 AM Reporting Lab: [address] [phone] Performing Lab: [address] *CREATININE 1.14 mg/dL 0.70-1.30 UREA NITROGEN mg/dL [...] 2020) 64 Aug 27, 2024 06:40 AM [facility] hsTROP-CO PLASMA Specimen Type: PLASMA No comment entered. Ordering Provider: RYAN HALL Report Released Date/Time: Aug 27, 2024 06:51 AM Reporting Lab: [address] [phone] Performing Lab: [place] [phone] hsTROP-CO 15 See Interpretation Aug 27, 2024 06:40 AM [facility] NTproBNP ([place]) PLASMA Specimen Typ e: PLASMA No comment entered. Ordering Provider: RYAN HALL Report Released Date/Time: Aug 27, 2024 06:51 AM Reporting Lab: [address] [phone] Performing Lab: [place] [phone] NTproBNP ([place]) 410 pg/mL -See Interpre tation Aug 27, 2024 06:40 AM [facility] ANTI-Xa ([place]) BLOOD Specimen Type: BLOOD Comment: Critical Values: Unfractionated Heparin: > 1.0 IU/mL For Low Molecular Weight Heparin reference ranges contact lab. Ordering Provider: RYAN HALL Report Released Date/Time: Aug 27, 2024 07:24 AM Reporting Lab: [place] [phone] Performing Lab: [place] [phone] ANTI-Xa (CO) <0.04 [IU]/mL 0.3-0.7 Aug 27, 2024 06:40 AM [facility] CBC & DIFF BLOOD Specimen Type: BLOOD No comment entered. Ordering Provider: RYAN HALL Report Released Date/Time: Aug 27, 2024 06:51 AM Reporting Lab: [place] [phone] Performing Lab: [place] [phone] WBC 15.70 10*3/uL H 3.6-11.2 RBC 4.80 [...] 0.00 -0.20 Aug 27, 2024 06:40 AM [facility] PATHOLOGIST REVIEW BLOOD Specimen T ype: BLOOD Comment: Reviewed by Dr. Chepe Yu: Reactive Lymphocytes. Ordering Provider: RYAN HALL Report Released Date/Time: Aug 27, 2024 06:51 AM Reporting Lab: [address] [phone] Performing Lab: [address] [phone] PATHOLOGIST REVIEW comment Vital Signs: All taken on the encounter date This section contains inpatient and outpatient Vital Signs collected on the date of the Encounter. Date/Time Temperature Pulse Blood Pressure Respiratory Rate SP02 Pain Height Weight Body Mass Index Source Aug 27, 2024 08:00 PM 97.7 51 138/67 16 95 0 [facility] Aug 27, 2024 08:30 AM 65 138/79 21 98 0 [facility] Aug 27, 2024 08:30 AM 96.8 68 135/74 21 97 0 195.99 31 [facility] Aug 27, 2024 08:19 AM 98.6 0 [facility] Aug 27, 2024 08:15 AM 74 135/71 18 99 [facility] Social History: Smoking Status (Most current) and Tobacco Use (All prior to encounter date) This section includes the most current, and the historical, smoking and tobacco- related health factors from the [place] facility where the Encounter took place. Current Smoking Status This section includes the most current smoking, or tobacco-related health factor, from the [place] facility where the Encounter took place. Date/Time Current Smoking Status Comment Facil ity Apr 30, 2023 01:00 PM [place]-TOBACCO QUIT 15 YRS OR MORE [facility] Tobacco Use History This section includes a history of the smoking, or tobacco-related health factors, that were collected on or before the date of the Encounter. The data comes from the [place] facility where the Encounter took place. Date/Time Smoking Status/Tobacco Use Comment F acility Apr 30, 2023 01:00 PM [place]-TOBACCO QUIT 15 YRS OR MORE [facility] Apr 04, 2022 09:15 AM VA-TOBACCO FORMER USER [facility] Apr 04, 2022 09:15 AM VA-TOBACCO QUIT 15 YRS OR MORE [facility] Jul 18, 2021 10:13 AM INPT TOBACCO SCREENED NEGATIVE [facility] Apr 27, 2021 07:00 AM INPT TOBACCO SCREENED NEGATIVE [facility] October 31, 2020 02:30 PM INPT TOBACCO SCREENED NEGATIVE [facility] October 08, 2020 10:22 AM INPT TOBACCO SCREENED NEGATIVE [facility] October 07, 2020 07:22 AM VA-TOBACCO FORMER USER [facility] Sep 30, 2020 11:06 AM INPT TOBACCO SCREENED NEGATIVE [facility] Sep 29, 2020 04:05 PM VA-TOBACCO NEVER USED [facility] Jan 17, 2020 10:21 AM VA-TOBACCO FORMER USER [facility] Jan 17, 2020 10:21 AM VA-TOBACCO QUIT 15 YRS OR MORE [facility] Advance Directives: All historical and current Section Date Range: From patient's date of to the date document was created. This section includes ALL of a patient's completed or amended [place] Advance and Rescinded Directives. The entries below indicate that a directive exists for the patient, but an actual copy is not included with this document. The data comes from all [place] facilities. Date Advance Directives Provider Source October 22, 2022 ADVANCE DIRECTIVE DISCUSSION ARGELIA CHAVEZ LOTUS [facility] Apr 04, 2022 ADVANCE DIRECTIVE DISCUSSION RAY ROQUE [facility] Sep 30, 2020 ADVANCE DIRECTIVE DISCUSSION ILYA BROWN [facility] Jul 26, 2020 ADVANCE DIRECTIVE DISCUSSION FABY TAMEZ [facility] Apr 17, 2020 ADVANCE DIRECTIVE DISCUSSION LINETTE RAMIREZ [facility] Jan 17, 2020 ADVANCE DIRECTIVE DISCUSSION LINETTE RAMIREZ [facility] Feb 24, 2009 [facility] Radiology Reports: +/- 30 days of the [...] the Encounter. The data comes from all [place] treatment facilities. Date/Time Radiology Report Provider Source Sep 01, 2024 06:18 AM CHEST 2 VIEWS: ALIYAH MANDEL [id number] -1940 M Exm Date: SEP 01, 2024@06:18 Req Phys: TERRELL GUO Loc: ICU PCU MED-CO/09-01-2024@07:2 Img Loc: CO-MAINTENANCE CUSTODIAN Service: [facility] [place] [address] (Case [id number] COMPLETE) CHEST 2 VIEWS (RAD Detailed) CPT:34855 Reason for Study: Assess pulmonary status S/P Pacemaker/AICD implant Clinical History: Morning after procedure DO NOT raise left arm above shoulder level. Report Status: Verified Date Reported: SEP 01, 2024 Date Verified: SEP 01, 2024 Tongue Presser E-Sig:/ES/Aubrie Garcia MD PhD Report: History: Pacemaker [...] Aubrie Garcia MD PhD, CHIEF, CLINICAL SUPPORT (Tongue Presser) /MDT AUBRIE GARCIA [facility] Aug 31, 2024 04:27 PM CHEST 1 VIEW: ALIYAH MANDEL [id number] -1940 M Exm Date: AUG 31, 2024@16:27 Req Phys: TERRELL GUO Loc: ICU PCU MED-CO/09-01-2024@07:2 Img Loc: CO-MAINTENANCE CUSTODIAN Service: [facility] [place] [address] (Case [id number] COMPLETE) CHEST 1 VIEW (RAD Detailed) CPT:78738 Proc Modifiers : PORTABLE Reason for Study: s/p pacemaker Clinical History: Report Status: Verified Date Reported: SEP 01, 2024 Date Verified: SEP 01, 2024 Tongue Presser E-Sig:/ES/Aubrie Garcia MD PhD Report: History: Pacemaker [...] Aubrie Garcia MD PhD, CHIEF, CLINICAL SUPPORT (Tongue Presser) /[facility] Aug 31, 2024 05:05 AM CHEST 1 VIEW: TEQUILAALIYAHKOBE [place] [id number] -1940 M Exm Date: AUG 31, 2024@05:05 Req Phys: LEEROY HUGHES Pat Loc: ICU PCU MED-CO/08-31-2024@07:3 Img Loc: CO-MAINTENANCE CUSTODIAN Service: [place] [facility] [place] [address] (Case [id number] COMPLETE) CHEST 1 VIEW (RAD Detailed) CPT:56817 Reason for Study: Assess pulmonary function s/p pacemaker AICD placement Clinical History: Report Status: Verified Date Reported: AUG 31, 2024 Date Verified: AUG 31, 2024 Tongue Presser E-Sig:/ES/Aubrie Garcia MD PhD Report: History: AICD [...] Aubrie Garcia MD PhD, CHIEF, CLINICAL SUPPORT (Tongue Presser) /AUBRIE VELEZ [facility] Aug 27, 2024 06:51 AM CHEST 1 VIEW: ALIYAH MANDEL [id number] -1940 M Exm Date: AUG 27, 2024@06:51 Req Phys: RYAN HALL Pat Loc: CO-ED (Req'g Loc) Img Loc: CO-MAINTENANCE CUSTODIAN Service: [place] [address] (Case [id number] COMPLETE) CHEST 1 VIEW (RAD Detailed) CPT:30560 Proc Modifiers : PORTABLE Reason for Study: vtach Clinical History: If ordering Portable X-Ray call Tech at [id number] for prompt response Report Status: Verified Date Reported: AUG 27, 2024 Date Verified: AUG 27, 2024 Tongue Presser E-Sig:/ES/uAbrie Garcia MD PhD Report: History: Ventricular tachycardia. Single view of the chest. Comparison: 05/20/2023. Findings: Lungs are clear. Mild cardiomegaly without pulmonary edema. Soft tissues are unremarkable. Atherosclerosis. Osseous structures demonstrate degenerative changes. Impression: Mild cardiomegaly without pulmonary edema. READING PHYSICIAN: Aubrie Garcia 08/27/2024 7:29 AM Primary Diagnostic Code: NO ALERT REQUIRED Primary Interpreting Staff: Aubrie Garcia MD PhD, CHIEF, CLINICAL SUPPORT (Tongue Presser) /AUBRIE VELEZ [facility]
--- OUTSIDE RECORDS SUMMARY | 2024-09-25 16:06 | XMS_ITS | Continuity of Care Document ---
Author Name [facility] Organization [facility] Care Team Providers Care Testing Specialist Name Role Phone [facility] Unavailable Unavailable Problems Combined list of problems from Department of Defense and Veterans Affairs facilities. It does not include entries that were removed or entered in error. Problem Status Onset Date Problem Type Date of Resolution Comments Source History of placement of stent for coronary artery disease Active 991 Condition Jan 17, 2020 Entered By: ABIGAIL ÁLVAREZ Comment: Multiple stents ARELY [facility] SUBJECTIVE VISUAL DISTURBANCES Active Condition DoD visit for: routine eye exam Inactive Condition DoD CATARACT SENILE NUCLEAR Active Condition DoD Vaccines Prophylactic Need Against Viral Diseases Inactive Condition DoD Vaccines Prophylactic Need Against Influenza Inactive Condition DoD ASTIGMATISM Active Condition DoD NORMAL ROUTINE OPHTHALMOLOGICAL EXAM Active Condition DoD Need For Vaccination Chickenpox (Active) Active Condition DoD SEBORRHEIC DERMATITIS Active Condition apply desonide DoD SEBORRHEIC KERATOSIS Active Condition DERM CONSULT PLAVED DoD visit for: screening exam malignant neoplasm skin Inactive Condition DoD ACTINIC KERATOSIS Active Condition pp lied LN2 (10-20 sec burst) to 4 lesions p briefing procedure and obtaining consent, pt tolerated well, mbl, 0 Comps DoD SKIN NEOPLASM UPPER EXTREMITIES BENIGN Active Condition DoD Glaucoma Screening Inactive Condition M od cupping ON OD and OS - ONs appear healthy - normal FDT screening field OD and OS DoD RETINOPATHY HYPERTENSIVE BOTH EYES Active Condition A-V nicking observed DoD ASTIGMATISM - REGULAR Active Condition DoD REFRACTIVE ERROR - HYPERMETROPIA Active Condition DoD PRESBYOPIA Active Condition Normal un dilated fundus exam - ocular health appears good; IOPs normal, binocularity normal, PHILIP with presbyopiaFinal spec Rx:OD +1.75-0.35n256PS +2.25-0.57d079+2. 25 ADDST28 bifocal; new specs PRN; order S-9s; spec Rx released. DoD DERMATOMYCOSIS Active Condition DoD lightheadedness Active Condition posi tion dependent. May be related to his tight double product control. Advised pt to get up slowly and wear tight socks. DoD ESOPHAGEAL REFLUX Active Condition No alarming symptoms. Will try bid ppi. Will follow. 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 recom trial of glucosaminehas tylenol and ibuprofen DoD difficulty breathing (dyspnea) Active Condition spells at night (see note 11-27-04) Pt will see any related events, check with about apnea/sonring. DoD Aortic valve regurgitation Active Condition [facility] Benign essential hypertension Active Condition [facility] Benign prostatic hypertrophy with outflow obstruction Active Condition [facility] Constipation Active Condition [facility] Coronary arteriosclerosis Active Condition [facility] Current drinker Active Condition [facility] Difficulty in Walking, not elsewhere classified Active Condition [facility] Exposure to potentially hazardous substance Active Condition [facility] GERD - Gastro-Esophageal Reflux Disease (RUST [id number]) Active Condition [facility] H/O: angina pectoris Active Condition [facility] Hiatal hernia Active Condition [facility] Hyperlipidemia Active Condition [facility] Diagnosis: ICD-10-CM I47.20 Ventricular tachycardia, unspecified Active Diagnosis [facility] Diagnosis: ICD-10-CM I25.10 Athscl heart disease of [place] coronary artery w/o ang pctrs Active Diagnosis [facility] Diagnosis: ICD-10-CM I42.9 Cardiomyopathy, unspecified Active Diagnosis [facility] Diagnosis: ICD-10-CM Z71.81 Spiritual or cheondoism counseling Active Diagnosis [facility] Admit Reason: VTACH, CHEST PAIN Active Diagnosis [facility] Diagnosis: ICD-10-CM K03.6 Deposits [accretions] on teeth Active Diagnosis [facility] Diagnosis: ICD-10-CM K14.8 Other diseases of tongue Active Diagnosis [facility] Diagnosis: ICD-10-CM I35.1 Nonrheumatic aortic (valve) insufficiency Active Diagnosis [facility] Diagnosis: ICD-10-CM R41.9 Unsp symptoms and signs w cognitive functions and awareness Active Diagnosis [facility] Diagnosis: ICD-10-CM Z76.89 Persons encountering health services in oth circumstances Active Diagnosis [facility] [address] [facility] Diagnosis: ICD-10-CM I10 Essential (primary) hypertension Active Diagnosis [facility] Diagnosis: ICD-10-CM I87.2 Venous insufficiency (chronic) (peripheral) Active Diagnosis [facility] Diagnosis: ICD-10-CM 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 Diagnosis [facility] Diagnosis: ICD-10-CM Z23 Encounter for immunization Active Diagnosis [facility] Diagnosis: ICD-10-CM K02.52 Dental caries on pit and fissure surfc penetrat into dentin Active Diagnosis [facility] Diagnosis: ICD-10-CM H01.009 Unspecified blepharitis unspecified eye, unspecified eyelid [facility] Diagnosis: ICD-10-CM L21.8 Other seborrheic dermatitis Active Diagnosis [facility] Diagnosis: ICD-10-CM H04.123 Dry eye syndrome of bilateral lacrimal glands Active Diagnosis [facility] Diagnosis: ICD-10-CM Z96.1 Presence of intraocular lens Active Diagnosis [facility] Diagnosis: ICD-10-CM H25.12 Age-related nuclear cataract, left eye Active Diagnosis [facility] Diagnosis: ICD-10-CM H25.13 Age-related nuclear cataract, bilateral Active Diagnosis [facility] Diagnosis: ICD-10-CM H28 Cataract in diseases classified elsewhere Active Diagnosis [facility] Diagnosis: ICD-10-CM Z71.9 Counseling, unspecified Active Diagnosis [facility] Diagnosis: ICD-10-CM H35.30 Unspecified macular degeneration Active Diagnosis [facility] Diagnosis: ICD-10-CM H25.11 Age-related nuclear cataract, right eye Active Diagnosis [facility] Diagnosis: ICD-10-CM Z01.818 Encounter for other preprocedural examination Active Diagnosis [facility] Diagnosis: ICD-10-CM H35.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, left eye, early dry stage Active Diagnosis [facility] Diagnosis: ICD-10-CM H26.9 Unspecified cataract Active Diagnosis [facility] Diagnosis: ICD-10-CM R29.898 Oth symptoms and signs involving the musculoskeletal system Active Diagnosis [facility] Diagnosis: ICD-10-CM H25.813 Combined forms of age-related cataract, bilateral Active Diagnosis [facility] Diagnosis: ICD-10-CM L57.0 Actinic keratosis Active Diagnosis [facility] Diagnosis: ICD-10-CM H40.013 Open angle with borderline findings, low risk, bilateral Active Diagnosis [facility] Medications Combined list of outpatient medications from Department of Defense and [facility] facilities.Medications provided include 1) outpatient medications from the last 15 months, and 2) patient-reported medications. Medication Details Route Status Patient Instructions Prescription Expires Prescription Number Last Dispense Date Ordering Provider Order Date Order Qty Source AMIODARONE HCL (PACERONE) 200MG TAB TAKE ONE TABLET BY MOUTH DAILY FOR ARRHYTHM IA RATE CONTROL UNTIL SEEN BY CARDIOLG Y THEN FOLLOW DOSING INSTRUCT IONS. ORAL ACTIVE 09/22/2025 [id number] 5 Nancy MOREAU 2024 30 [facility] AMIODARONE HCL (PACERONE) 200MG TAB TAKE TWO TABLETS BY MOUTH DAILY FOR ARRHYTHM IA RATE CONTROL UNTIL SEEN BY CARDIOLG Y THEN FOLLOW DOSING INSTRUCT IONS. ORAL DISCONT INUED (EDIT) 10/01/2024 [id number] 5 IRISH HUGHES 2024 60 [facility] AMLODIPINE BESYLATE 10MG TAB TAKE ONE TABLET BY MOUTH EVERY MORNING FOR HEART/BL OOD PRESSURE ORAL DISCONT INUED 02/17/2025 [id number] 4 HENRIRUB AB HASAN [address] [facility] AMLODIPINE BESYLATE 10MG TAB TAKE ONE TABLET BY MOUTH EVERY MORNING FOR HEART/BL OOD PRESSURE ORAL DISCONT INUED 07/10/2024 [id number] 4 HENRIRUB AB HASAN 2023 90 [facility] ASPIRIN 81MG TAB,EC TAKE ONE TABLET BY MOUTH ONCE A DAY ORAL ACTIVE FERCHO TORRES 2020 [place] [facility] CARBOXYMETH YLCELLULOSE NA 0.5% (PF) SOLN,OPH,UD INSTILL 1 DROP IN BOTH EYES FOUR TIMES A DAY FOR DRY EYES OPHTHA LMIC DISCONT INUED 11/11/2024 [id number] 5 JANET TSE LEONORA FLOREZ 2023 30 [place] [facility] CARBOXYMETH YLCELLULOSE NA 0.5% (PF) SOLN,OPH,UD INSTILL 1 DROP IN BOTH EYES FOUR TIMES A DAY FOR DRY EYES OPHTHA LMIC 08/25/2024 [id number] 5 JANET TSE LEONORA FLOREZ 2024 50 [place] [facility] CEPHALEXIN 500MG CAP TAKE ONE CAPSULE BY MOUTH TWO TIMES A DAY FOR PREVENTI ON OF INFECTIO N ,BEGIN TONIGHT AND TAKE UNTIL ALL GONE. TAKE WITH FOOD. ORAL ACTIVE 10/01/2024 [id number] 5 IRISH HUGHES 2024 9 [facility] [facility] CHOLECALCIF SHERMAN 1,250MCG (50,000UNIT ) CAP,ORAL TAKE ONE CAPSULE BY MOUTH EVERY MORNING FOR VITAMIN SUPPLEME NTATION ORAL DISCONT INUED (EDIT) 10/17/2023 [id number] 4 DENNY ÁLVAREZ [address] [facility] CHOLECALCIF SHERMAN 1,250MCG (50,000UNIT ) CAP,ORAL TAKE ONE CAPSULE BY MOUTH EVERY WEEK FOR VITAMIN SUPPLEME NTATION ORAL 10/28/2023 [id number] 4 HENRIDENNY GARCIA HASQUIANA [address] [facility] CHOLECALCIF SHERMAN 25MCG (1,000UNIT) TAB TAKE ONE TABLET BY MOUTH EVERY MORNING FOR VITAMIN D DEFICIEN CY ORAL ACTIVE 02/17/2025 [id number] 5 HENRIDENNY GARCIA HASQUIANA [address] [facility] clopidogrel 75 mg oral tablet clopidog rel 75 mg oral tablet Start Date: 02/18/20 Status: Ordered Repeat number: 1 Ordered 2020 No Facilit y Access CLOPIDOGREL BISULFATE 75MG TAB TAKE ONE TABLET BY MOUTH ONCE A DAY TO PREVENT BLOOD CLOTS ORAL DISCONT INUED 07/28/2025 [id number] 5 HENRI,RUB AB HASAN [address] [facility] CLOPIDOGREL BISULFATE 75MG TAB TAKE ONE TABLET BY MOUTH ONCE A DAY TO PREVENT BLOOD CLOTS ORAL DISCONT INUED 07/10/2024 [id number] 4 HENRI,RUB AB HASAN 2023 90 [facility] CYANOCOBALA MIN 1000MCG TAB TAKE ONE TABLET BY MOUTH EVERY MORNING FOR VITAMIN DEFICIEN CY ORAL ACTIVE 02/12/2025 [id number] 5 HENRI,RUB AB HASAN [address] [facility] ISOSORBIDE MONONITRATE 120MG TAB,SA TAKE ONE TABLET BY MOUTH ONCE A DAY TO PREVENT CHEST PAIN TAKE ON EMPTY STOMACH. SWALLOW WHOLE. DO NOT CRUSH OR CHEW. ORAL ACTIVE 02/17/2025 [id number] 4 HENRI,RUB AB HASAN [address] [facility] ISOSORBIDE MONONITRATE 120MG TAB,SA TAKE ONE TABLET BY MOUTH ONCE A DAY TO PREVENT CHEST PAIN TAKE ON EMPTY STOMACH. SWALLOW WHOLE. DO NOT CRUSH OR CHEW. ORAL DISCONT INUED 07/10/2024 [id number] 4 HENRIRUB AB HASAN 2023 90 [facility] KETOROLAC TROMETHAMIN E 0.5% SOLN,OPH INSTILL 1 DROP IN LEFT EYE FOUR TIMES A DAY - START DAY OF SURGERY AND TAKE HOME OPHTHA LMIC DISCONT INUED 09/19/2024 [id number] 4 ARIELLA KING 2023 5 [facility] KETOROLAC TROMETHAMIN E 0.5% SOLN,OPH INSTILL 1 DROP IN RIGHT EYE FOUR TIMES A DAY - START DAY OF SURGERY AND TAKE HOME OPHTHA LMIC DISCONT INUED 08/14/2024 [id number] 4 QUIANA BAXTER 2023 5 [facility] LISINOPRIL 20MG TAB TAKE ONE-HALF TABLET BY MOUTH EVERY MORNING FOR HEART OR HIGH BLOOD PRESSURE ORAL ACTIVE 02/17/2025 [id number] 5 HENRIRUB AB HASAN [address] [facility] LISINOPRIL 20MG TAB TAKE ONE-HALF TABLET BY MOUTH EVERY MORNING FOR HEART OR HIGH BLOOD PRESSURE ORAL DISCONT INUED 08/01/2024 [id number] 4 HENRI,RUB AB HASAN [address] [facility] METOPROLOL SUCCINATE 50MG TAB,SA TAKE ONE-HALF TABLET BY MOUTH EVERY MORNING FOR BLOOD PRESSURE SWALLOW WHOLE, DO NOT CRUSH OR CHEW (TABLETS MAY BE CUT IN HALF). ORAL ACTIVE 06/22/2025 [id number] 5 HENRIRUB AB HASAN [address] [facility] METOPROLOL SUCCINATE 50MG TAB,SA TAKE ONE-HALF TABLET BY MOUTH EVERY MORNING FOR HEART/BL OOD PRESSURE . SWALLOW WHOLE, DO NOT CRUSH OR CHEW (TABLETS MAY BE CUT IN HALF). ORAL 01/23/2024 [id number] 4 Nancy MOREAU 2022 45 [facility] MOXIFLOXACI N HCL (EQV-VIGAMO X) 0.5% SOLN,OPH INSTILL 1 DROP IN LEFT EYE FOUR TIMES A DAY - START DAY OF SURGERY AND TAKE HOME OPHTHA LMIC DISCONT INUED 09/19/2024 [id number] 4 ARIELLA KING 2023 3 [facility] MOXIFLOXACI N HCL (EQV-VIGAMO X) 0.5% SOLN,OPH INSTILL 1 DROP IN RIGHT EYE FOUR TIMES A DAY - START DAY OF SURGERY AND TAKE HOME OPHTHA LMIC DISCONT INUED BY BRIAN Morfin 08/14/2024 [id number] 4 QUIANA BAXTER 2023 3 [facility] NITROGLYCER IN 0.4MG TAB,SUBLING UAL DISSOLVE ONE TABLET UNDER THE TONGUE EVERY MORNING NEEDED FOR CHEST PAIN. IF NO IMPROVEM ENT AFTER FIRST DOSE CALL . MAY TAKE 2 ADDITION AL DOSES, 5 MINUTES APART. SUBLIN GUAL ACTIVE 01/29/2025 [id number] 5 Nancy MOREAUY 2023 100 [facility] NITROGLYCER IN 0.4MG TAB,SUBLING UAL DISSOLVE ONE TABLET UNDER THE TONGUE EVERY MORNING NEEDED FOR CHEST PAIN. IF NO IMPROVEM ENT AFTER FIRST DOSE CALL . MAY TAKE 2 ADDITION AL DOSES, 5 MINUTES APART. SUBLIN GUAL DISCONT INUED 10/23/2023 [id number] 4 HENRI,RUB AB HASAN 2022 100 [facility] OMEPRAZOLE 20MG CAP,EC TAKE ONE CAPSULE BY MOUTH EVERY MORNING FOR GERD - TAKE WITH A FULL GLASS OF WATER 30 MINUTES BEFORE FOOD OR OTHER DRINKS ORAL ACTIVE 06/22/2025 [id number] 5 HENRI,RUB AB HASAN [address] [facility] PREDNISOLON E ACETATE 1% SUSP,OPH INSTILL 1 DROP IN LEFT EYE FOUR TIMES A DAY . SHAKE WELL EACH TIME BEFORE USING. OPHTHA LMIC DISCONT INUED 10/19/2023 [id number] 4 ARIELLA KING 2023 10 [facility] PREDNISOLON E ACETATE 1% SUSP,OPH INSTILL 1 DROP IN RIGHT EYE FOUR TIMES A DAY . SHAKE WELL EACH TIME BEFORE USING. OPHTHA LMIC 09/13/2023 [id number] 4 QUIANA BAXTER 2023 10 [facility] RANOLAZINE 1000MG TAB,SA TAKE ONE TABLET BY MOUTH TWO TIMES A DAY FOR HEART/ME EVENT CHEST PAIN, *SWALLOW WHOLE- DO NOT CRUSH,BR EAK OR CHEW* ORAL ACTIVE 02/17/2025 [id number] 5 HENRI,RUB AB HASAN [address] [facility] RANOLAZINE 1000MG TAB,SA TAKE ONE TABLET BY MOUTH TWO TIMES A DAY FOR HEART/ME EVENT CHEST PAIN, *SWALLOW WHOLE- DO NOT CRUSH,BR EAK OR CHEW* ORAL DISCONT INUED 01/29/2025 [id number] 4 Nancy MOREAU 2023 180 [facility] RANOLAZINE 1000MG TAB,SA TAKE ONE TABLET BY MOUTH TWO TIMES A DAY FOR HEART/ME EVENT CHEST PAIN, *SWALLOW WHOLE- DO NOT CRUSH,BR EAK OR CHEW* ORAL DISCONT INUED 01/23/2024 [id number] 4 Nancy MOREAU 2022 180 [facility] ROSUVASTATI N CA 40MG TAB TAKE ONE TABLET BY MOUTH AT BEDTIME FOR CHOLESTE ROL. REPORT ANY UNEXPLAI ZELDA MUSCLE PAIN OR WEAKNESS TO YOUR DOCTOR. ORAL SUSPEND ED 02/17/2025 [id number] 5 DENNY ÁLVAREZ [address]23 [address] [employer] [facility] ROSUVASTATI N CA 40MG TAB TAKE ONE TABLET BY MOUTH AT BEDTIME FOR CHOLESTE ROL. REPORT ANY UNEXPLAI ZELDA MUSCLE PAIN OR WEAKNESS TO YOUR DOCTOR. ORAL DISCONT INUED 01/29/2025 [id number] 4 Nancy MOREAU 2023 90 [facility] ROSUVASTATI N CA 40MG TAB TAKE ONE TABLET BY MOUTH AT BEDTIME FOR CHOLESTE ROL. REPORT ANY UNEXPLAI ZELDA MUSCLE PAIN OR WEAKNESS TO YOUR DOCTOR. ORAL DISCONT INUED 01/23/2024 [id number] 4 Nancy MOREAU 2022 90 [facility] SILDENAFIL CITRATE 50MG TAB TAKE ONE-HALF TABLET BY MOUTH DIRECTED FOR ERECTILE DYSFUNCT ION ONE HOUR BEFORE SEXUAL ENCOUNTE R *DO NOT TAKE MORE THAN 1 DOSE A DAY* 6 DOSES PER 30 DAYS ONLY! ORAL DISCONT INUED BY PROVIDE R 08/26/2024 [id number] 4 DENNY ÁLVAREZ HASQUIANA 2023 [address] [employer] [facility] SPIRONOLACT ONE 25MG TAB TAKE ONE TABLET BY MOUTH EVERY MORNING FOR HEART FAILURE ORAL ACTIVE 09/02/2025 [id number] 5 IRISH HUGHES 2024 30 [facility] TAMSULOSIN HCL 0.4MG CAP TAKE ONE CAPSULE BY MOUTH ONCE A DAY FOR PROSTATE TAKE WITH FOOD ORAL ACTIVE 02/17/2025 [id number] 5 HENRI,RUB AB HASAN [address] [facility] TAMSULOSIN HCL 0.4MG CAP TAKE ONE CAPSULE BY MOUTH ONCE A DAY FOR PROSTATE TAKE WITH FOOD ORAL DISCONT INUED 10/30/2024 [id number] 4 HENRI,RUB AB HASAN [address] [facility] TAMSULOSIN HCL 0.4MG CAP TAKE ONE CAPSULE BY MOUTH ONCE A DAY FOR PROSTATE TAKE WITH FOOD ORAL DISCONT INUED 07/10/2024 [id number] 4 HENRI,RUB AB HASAN 2023 30 [facility] Allergies, Adverse Reactions, Alerts Combined list of allergies from Department of Defense and Veterans Affairs facilities. It does not include entries that were removed or entered in error. Substance Category Reaction Severity Reaction type Status Date Reported Comments Source No Known Allergies Drug allergy (disorder) active 01/29/2008 [place], [place] Immunizations Combined list of available immunizations from the Department of [facility] and [facility] facilities. Immunization Series Date Given Administered By Site Reaction Lot Number CVX Code Drug Advertising Columnist Status Comments Source COVID-19 (MODERNA), MRNA, LNP-S, PF, 50 MCG/0.5 ML (AGES 12+ YEARS) 2023 RICK LONDON LEFT DELTO ID [id number] 312 complet ed [facility] [place], [employer] [facility] INFLUENZA, HIGH-DOSE, TRIVALENT, PF 2023 HAILEY VICTOR LEFT DELTO ID [id number] A 135 complet ed ADMINIST[facility] AT [facility] RSV, RECOMBINANT, PROTEIN SUBUNIT RSVPREF, ADJUVANT RECONSTITUTED , 0.5 ML, PF 2022 TAZ CHAPA RIGHT DELTO ID [id number] 303 complet ed ADMINISTE [facility] AT [facility] COVID-19 (MODERNA), MRNA, LNP-S, PF, 50 MCG/0.5 ML (AGES 12+ YEARS) 2022 HITESH VALDES LEFT DELTO ID [id number] . 312 complet ed Booster for Series, [facility]MIN[facility] AT [facility] INFLUENZA, HIGH-DOSE, QUADRIVALENT 2022 ISAAC BARRON LEFT DELTO ID [id number] A 197 complet ed Completed Series, [place], [facility] COVID-19, MRNA, LNP-S, BIVALENT BOOSTER, PF, 30 MCG/0.3 ML DOSE 1 2021 300 complet ed PFR; [id number]; 3 [facility] INFLUENZA VACCINE, QUADRIVALENT, ADJUVANTED 2021 205 complet ed [facility] COVID-19 (Angle), MRNA, LNP-S, PF, 30 MCG/0.3 ML DOSE, JASE-SUCROSE (AGES 12+ YEARS) 4 2021 217 complet ed PFR; [id number]; 2 [facility] PNEUMOCOCCAL POLYSACCHARID E PPV23 2021 33 complet ed [facility] TDAP 2020 115 complet ed [facility] COVID-19, mRNA, LNP-S, PF, 30 mcg/0.3 mL dose 2020 Maryse TINOCO [employer] [place] (PFR) Not Given COVID-19, mRNA, LNP-S, PF, 30 mcg/0.3 mL dose [facility] COVID-19 (PFIZER), MRNA, LNP-S, PF, 30 MCG/0.3 ML DOSE 3 2020 208 complet ed [facility], VISN 15 influenza, high-dose, quadrivalent 2020 ALEJANDRINA () Not Given influenza , high-dose , quadrival ent [facility] INFLUENZA, HIGH-DOSE, QUADRIVALENT 5 2020 197 complet ed HISTORICA L INFORMATI ON - FROM OTHER REGISTRY, [facility] INFLUENZA, UNSPECIFIED FORMULATION [address] [facility], VISN 15 COVID-19 (PFIZER), MRNA, LNP-S, PF, 30 MCG/0.3 ML DOSE 2 2020 208 complet ed PFR; [id number]; 1 [facility] COVID-19 (PFIZER), MRNA, LNP-S, PF, 30 MCG/0.3 ML DOSE 1 2020 208 complet ed PFR; [id number]; 1 [facility] ZOSTER RECOMBINANT 2 2019 187 complet ed [facility] INFLUENZA, UNSPECIFIED FORMULATION 2019 88 complet ed [facility], VISN 15 INFLUENZA, UNSPECIFIED FORMULATION 2019 88 complet ed [facility], VISN 15 ZOSTER RECOMBINANT 1 2019 187 complet ed [facility] influenza, seasonal,high dose-pf 2018 135 complet ed influenza , seasonal, high dose-pf 02/24/19 Given Ambulat ory Pharmac y INFLUENZA, HIGH DOSE SEASONAL 4 2018 135 complet ed HISTORICA L INFORMATI ON - FROM OTHER REGISTRY, [facility] influenza, seasonal,high dose-pf 2017 135 complet ed influenza , seasonal, high dose-pf 02/16/18 Given Ambulat ory Pharmac y INFLUENZA, HIGH DOSE SEASONAL 3 2017 135 complet ed HISTORICA L INFORMATI ON - FROM OTHER REGISTRY, [facility] INFLUENZA, HIGH DOSE SEASONAL 2 2016 135 complet ed HISTORICA L INFORMATI ON - FROM OTHER REGISTRY, [facility] pneumococcal 13-valent conjugate (PCV13) 2015 133 complet ed pneumococ chance 13-valent conjugate (PCV13) 08/04/15 Given Ambulat ory Pharmac y Pneumococcal conjugate PCV 13 2015 GLENNY, () Not Given Pneumococ chance conjugate PCV 13 DoD PNEUMOCOCCAL CONJUGATE PCV 13 1 2015 133 complet ed HISTORICA L INFORMATI ON - FROM OTHER REGISTRY, [facility] Novel influenza-H1N 1-09, all formul 2008 zzLef t Arm [id number] 1 128 [employer] Pharm[employer] ls complet ed Novel influenza -Y4C4-96, all formul 05/16/09 Given Ambulat ory Pharmac y Novel influenza-H1N 1-09, all formulations 1 2008 REGINA FISHMAN [id number] 1 128 [employer] Trendlrtica l Johanne. (NOV) complet ed Novel influenza -[id number], all formulati ons DoD influenza virus vaccine,split 2008 zzRig ht Arm [id number] 1a 15 Unknown complet ed influenza virus vaccine,s plit 03/03/09 Given Ambulat ory Pharmac y influenza virus vaccine, split virus (incl. purified surface antigen)-reti red CODE 1 2008 REGINA FISHMAN [id number] 1a 15 Other (OTH) complet ed influenza virus vaccine, split virus (incl. purified surface antigen)- retired CODE DoD zoster vaccine live 2007 zzLef t Arm [id number] 121 [employer] complet ed zoster vaccine live 05/25/08 Given Ambulat ory Pharmac y zoster vaccine, live 1 2007 ELYSSA, TERRI L [id number] 121 Merck (MSD) complet ed zoster vaccine, live DoD tetanus-dipht h toxoids (Td) adult/adol 2004 [id number] sanofi pasteur complet ed tetanus-d iphth toxoids (Td) adult/ado l 06/26/04 Given Ambulat ory Pharmac y INFLUENZA, UNSPECIFIED FORMULATION 1 2003 88 complet ed HISTORICA L INFORMATI ON - FROM OTHER REGISTRY, [facility] Results Combined list of recent chemistry, hematology and other laboratory results from Department of Defense and Veterans Affairs, ranging from 15 months to all on record, depending upon the facility. Order Name Results Value Reference Range Date Interpretation Specimen Comments Source MAGNESIUM (mg/dL) MAGNESIUM [MASS/VOLUM E] IN SERUM OR PLASMA 2.1 mg/dL 1.6 - 2.6 09/01 Specimen Type: PLASMA No comment entered. Ordering Provider: LEEROY HUGHES Report Released Date/Time: Aug 31, 2024 09:28 AM Reporting Lab: [address] [address] Performing Lab: [address] [address] [facility] COMPREHENS DAVEY METABOLIC PANEL CREATININE [MASS/VOLUM E] IN SERUM OR PLASMA 1.12 mg/dL 0.70 - 1.30 09/01 Specimen Type: PLASMA No comment entered. Ordering Provider: LEEROY HUGHES Report Released Date/Time: Aug 31, 2024 09:28 AM Reporting Lab: [address] [address] Performing Lab: [address] [address] [facility] COMPREHENS DAVEY METABOLIC PANEL UREA NITROGEN [MASS/VOLUM E] IN SERUM OR PLASMA 17 mg/dL 9 - 25 09/01 Specimen Type: PLASMA No comment entered. Ordering Provider: LEEROY HUGHES Report Released Date/Time: Aug 31, 2024 09:28 AM Reporting Lab: [address] [address] Performing Lab: [place] [phone] [facility] COMPREHENS DAVEY METABOLIC PANEL GLUCOSE [MASS/VOLUM E] IN SERUM OR PLASMA 109 mg/dL 72 - 99 09/01 H Specimen Type: PLASMA No comment entered. Ordering Provider: LEEROY HUGHES Report Released Date/Time: Aug 31, 2024 09:28 AM Reporting Lab: [address] [address] Performing Lab: [address] [address] [facility] COMPREHENS DAVEY METABOLIC PANEL SODIUM [MOLES/VOLU ME] IN SERUM OR PLASMA 138 meq/L 136 - 145 09/01 Specimen Type: PLASMA No comment entered. Ordering Provider: LEEROY HUGHES Report Released Date/Time: Aug 31, 2024 09:28 AM Reporting Lab: [address] [address] Performing Lab: [address] [address] [facility] COMPREHENS DAVEY METABOLIC PANEL POTASSIUM [MOLES/VOLU ME] IN SERUM OR PLASMA 4.3 meq/L 3.5 - 5 09/01 Specimen Type: PLASMA No comment entered. Ordering Provider: LEEROY HUGHES Report Released Date/Time: Aug 31, 2024 09:28 AM Reporting Lab: [address] [address] Performing Lab: [address] [address] [facility] COMPREHENS DAVEY METABOLIC PANEL CALCIUM [MASS/VOLUM E] IN SERUM OR PLASMA 9.4 mg/dL 8.4 - 10.4 09/01 Specimen Type: PLASMA No comment entered. Ordering Provider: LEEROY HUGHES Report Released Date/Time: Aug 31, 2024 09:28 AM Reporting Lab: [place] [phone] Performing Lab: [address] COMPREHENS DAVEY METABOLIC PANEL PROTEIN [MASS/VOLUM E] IN SERUM OR PLASMA 7.1 g/dL 6.0 - 8.6 09/01 Specimen Type: PLASMA No comment entered. Ordering Provider: LEEROY HUGHES Report Released Date/Time: Aug 31, 2024 09:28 AM Reporting Lab: [place] [id number] Performing Lab: [place] [id number] COMPREHENS DAVEY METABOLIC PANEL ALBUMIN [MASS/VOLUM E] IN SERUM OR PLASMA 4.3 g/dL 3.4 - 5.0 09/01 Specimen Type: PLASMA No comment entered. Ordering Provider: LEEROY HUGHES Report Released Date/Time: Aug 31, 2024 09:28 AM Reporting Lab: [place] [id number] Performing Lab: [address] COMPREHENS DAVEY METABOLIC PANEL BILIRUBIN.T OTAL [MASS/VOLUM E] IN SERUM OR PLASMA 1.0 mg/dL 0.2 - 1.2 09/01 Specimen Type: PLASMA No comment entered. Ordering Provider: LEEROY HUGHES Report Released Date/Time: Aug 31, 2024 09:28 AM Reporting Lab: [place] [phone] Performing Lab: [place] [phone] [place] [address] COMPREHENS DAVEY METABOLIC PANEL ASPARTATE AMINOTRANSF ERASE [ENZYMATIC ACTIVITY/VO LUME] IN SERUM OR PLASMA 23 U/L 5 - 34 09/01 Specimen Type: PLASMA No comment entered. Ordering Provider: LEEROY HUGHES Report Released Date/Time: Aug 31, 2024 09:28 AM Reporting Lab: [address] [address] Performing Lab: [address] [address] [facility] COMPREHENS DAVEY METABOLIC PANEL ALANINE AMINOTRANSF ERASE [ENZYMATIC ACTIVITY/VO LUME] IN SERUM OR PLASMA 9 U/L 8 - 40 09/01 Specimen Type: PLASMA No comment entered. Ordering Provider: LEEROY HUGHES Report Released Date/Time: Aug 31, 2024 09:28 AM Reporting Lab: [address] [address] Performing Lab: [place] [phone] [facility] COMPREHENS DAVEY METABOLIC PANEL CHLORIDE [MOLES/VOLU ME] IN SERUM OR PLASMA 108 meq/L 98 - 107 09/01 H Specimen Type: PLASMA No comment entered. Ordering Provider: LEEROY HUGHES Report Released Date/Time: Aug 31, 2024 09:28 AM Reporting Lab: [address] [address] Performing Lab: [place] [phone] [facility] COMPREHENS DAVEY METABOLIC PANEL CARBON DIOXIDE, TOTAL [MOLES/VOLU ME] IN SERUM OR PLASMA 21 meq/L 22 - 31 09/01 L Specimen Type: PLASMA No comment entered. Ordering Provider: LEEROY HUGHES Report Released Date/Time: Aug 31, 2024 09:28 AM Reporting Lab: [address] [address] Performing Lab: [place] [phone] [facility] COMPREHENS DAVEY METABOLIC PANEL ALKALINE PHOSPHATASE [ENZYMATIC ACTIVITY/VO LUME] IN SERUM OR PLASMA 58 U/L 40 - 150 09/01 Specimen Type: PLASMA No comment entered. Ordering Provider: LEEROY HUGHES Report Released Date/Time: Aug 31, 2024 09:28 AM Reporting Lab: [address] [address] Performing Lab: [place] [phone] [facility] COMPREHENS DAVEY METABOLIC PANEL GLOMERULAR FILTRATION RATE/1.73 SQ M.PREDICTED [VOLUME RATE/AREA] IN SERUM, PLASMA OR BLOOD BY CREATININE- BASED FORMULA (CKD-EPI 2020) 66 09/01 Specimen Type: PLASMA No comment entered. Ordering Provider: LEEROY HUGHES Report Released Date/Time: Aug 31, 2024 09:28 AM Reporting Lab: [place] [phone] Performing Lab: [place] [phone] [facility] CBC & DIFF LEUKOCYTES [#/VOLUME] IN BLOOD BY AUTOMATED COUNT 15.00 10*3/u L 3.6 - 11.2 09/01 H Specimen Type: BLOOD No comment entered. Ordering Provider: LEEROY HUGHES Report Released Date/Time: Aug 31, 2024 09:28 AM Reporting Lab: [place] [phone] Performing Lab: [place] [phone] [facility] CBC & DIFF ERYTHROCYTE S [#/VOLUME] IN BLOOD BY AUTOMATED COUNT 4.10 10*6/u L 4.10 - 5.70 09/01 Specimen Type: BLOOD No comment entered. Ordering Provider: LEEROY HUGHES Report Released Date/Time: Aug 31, 2024 09:28 AM Reporting Lab: [place] [phone] Performing Lab: [place] [phone] [facility] CBC & DIFF HEMOGLOBIN [MASS/VOLUM E] IN BLOOD 13.6 g/dL 13.1 - 16.8 09/01 Specimen Type: BLOOD No comment entered. Ordering Provider: LEEROY HUGHES Report Released Date/Time: Aug 31, 2024 09:28 AM Reporting Lab: [place] [phone] Performing Lab: [place] [phone] [facility] CBC & DIFF HEMATOCRIT [VOLUME FRACTION] OF BLOOD BY AUTOMATED COUNT 37.7 38.2 - 48.4 09/01 L Specimen Type: BLOOD No comment entered. Ordering Provider: LEEROY HUGHES Report Released Date/Time: Aug 31, 2024 09:28 AM Reporting Lab: [place] [phone] Performing Lab: [place] [phone] [facility] CBC & DIFF MCV [ENTITIC VOLUME] BY AUTOMATED COUNT 92.0 fL 80.0 - 100.0 09/01 Specimen Type: BLOOD No comment entered. Ordering Provider: LEEROY HUGHES Report Released Date/Time: Aug 31, 2024 09:28 AM Reporting Lab: [place] [phone] Performing Lab: [place] [phone] [facility] CBC & DIFF MCH [ENTITIC MASS] BY AUTOMATED COUNT 33.2 pg 27.0 - 34.0 09/01 Specimen Type: BLOOD No comment entered. Ordering Provider: LEEROY HUGHES Report Released Date/Time: Aug 31, 2024 09:28 AM Reporting Lab: [place] [phone] Performing Lab: [place] [phone] [facility] CBC & DIFF MCHC [MASS/VOLUM E] BY AUTOMATED COUNT 36.1 g/dL 33.0 - 36.0 09/01 H Specimen Type: BLOOD No comment entered. Ordering Provider: LEEROY HUGHES Report Released Date/Time: Aug 31, 2024 09:28 AM Reporting Lab: [place] [phone] Performing Lab: [place] [phone] [facility] CBC & DIFF PLATELETS [#/VOLUME] IN BLOOD BY AUTOMATED COUNT 166 10*3/u L 150 - 400 09/01 Specimen Type: BLOOD No comment entered. Ordering Provider: LEEROY HUGHES Report Released Date/Time: Aug 31, 2024 09:28 AM Reporting Lab: [place] [phone] Performing Lab: [place] [phone] [facility] CBC & DIFF PLATELET MEAN VOLUME [ENTITIC VOLUME] IN BLOOD BY AUTOMATED COUNT 10.9 fL 7.5 - 11.2 09/01 Specimen Type: BLOOD No comment entered. Ordering Provider: LEEROY HUGHES Report Released Date/Time: Aug 31, 2024 09:28 AM Reporting Lab: [place] [address] [facility] [address] Performing Lab: [place] [address] [facility] [phone] [place] [address] CBC & DIFF ERYTHROCYTE DISTRIBUTIO N WIDTH [RATIO] BY AUTOMATED COUNT 12.1 11.8 - 15.1 09/01 Specimen Type: BLOOD No comment entered. Ordering Provider: LEEROY HUGHES Report Released Date/Time: Aug 31, 2024 09:28 AM Reporting Lab: [place] [address] [facility] [place] [phone] Performing Lab: [place] [phone] [facility] CBC & DIFF LYMPHOCYTES /100 LEUKOCYTES IN BLOOD BY AUTOMATED COUNT 30.0 09/01 Specimen Type: BLOOD No comment entered. Ordering Provider: LEEROY HUGHES Report Released Date/Time: Aug 31, 2024 09:28 AM Reporting Lab: [place] [address] [address] Performing Lab: [address] [address] [facility] CBC & DIFF NEUTROPHILS /100 LEUKOCYTES IN BLOOD BY AUTOMATED COUNT 61.0 09/01 Specimen Type: BLOOD No comment entered. Ordering Provider: LEEROY HUGHES Report Released Date/Time: Aug 31, 2024 09:28 AM Reporting Lab: [place] [address] [facility] [place] [phone] Performing Lab: [place] [address] [facility] [place] [phone] [facility] CBC & DIFF MONOCYTES/1 00 LEUKOCYTES IN BLOOD BY AUTOMATED COUNT 7.9 09/01 Specimen Type: BLOOD No comment entered. Ordering Provider: LEEROY HUGHES Report Released Date/Time: Aug 31, 2024 09:28 AM Reporting Lab: [place] [address] [facility] [address] Performing Lab: [address] [address] [id number] CBC & DIFF MONOCYTES [#/VOLUME] IN BLOOD BY AUTOMATED COUNT 1.19 10*3/u L 0.19 - 0.8 09/01 H Specimen Type: BLOOD No comment entered. Ordering Provider: LEEROY HUGHES Report Released Date/Time: Aug 31, 2024 09:28 AM Reporting Lab: [place] [phone] Performing Lab: [place] [phone] [facility] CBC & DIFF NEUTROPHILS [#/VOLUME] IN BLOOD BY AUTOMATED COUNT 9.13 10*3/u L 2.10 - 8.00 09/01 H Specimen Type: BLOOD No comment entered. Ordering Provider: LEEROY HUGHES Report Released Date/Time: Aug 31, 2024 09:28 AM Reporting Lab: [place] [phone] Performing Lab: [address] CBC & DIFF EOSINOPHILS [#/VOLUME] IN BLOOD BY AUTOMATED COUNT 0.05 10*3/u L 0.00 - 0.60 09/01 Specimen Type: BLOOD No comment entered. Ordering Provider: LEEROY HUGHES Report Released Date/Time: Aug 31, 2024 09:28 AM Reporting Lab: [place] [id number] Performing Lab: [address] CBC & DIFF BASOPHILS [#/VOLUME] IN BLOOD BY AUTOMATED COUNT 0.03 10*3/u L 0.00 - 0.20 09/01 Specimen Type: BLOOD No comment entered. Ordering Provider: LEEROY HUGHES Report Released Date/Time: Aug 31, 2024 09:28 AM Reporting Lab: [place] [phone] Performing Lab: [address] CBC & DIFF EOSINOPHILS /100 LEUKOCYTES IN BLOOD BY AUTOMATED COUNT 0.3 09/01 Specimen Type: BLOOD No comment entered. Ordering Provider: LEEROY HUGHES Report Released Date/Time: Aug 31, 2024 09:28 AM Reporting Lab: [place] [phone] Performing Lab: [place] [phone] [facility] CBC & DIFF BASOPHILS/1 00 LEUKOCYTES IN BLOOD BY AUTOMATED COUNT 0.2 09/01 Specimen Type: BLOOD No comment entered. Ordering Provider: LEEROY HUGHES Report Released Date/Time: Aug 31, 2024 09:28 AM Reporting Lab: [place] [phone] Performing Lab: [place] [phone] [facility] CBC & DIFF LYMPHOCYTES [#/VOLUME] IN BLOOD BY AUTOMATED COUNT 4.50 10*3/u L 0.77 - 4.50 09/01 Specimen Type: BLOOD No comment entered. Ordering Provider: LEEROY HUGHES Report Released Date/Time: Aug 31, 2024 09:28 AM Reporting Lab: [place] [phone] Performing Lab: [place] [phone] CBC & DIFF IMMATURE GRANULOCYTE S [#/VOLUME] IN BLOOD BY AUTOMATED COUNT 0.09 10*3/u L 0.00 - 0.05 09/01 H Specimen Type: BLOOD No comment entered. Ordering Provider: LEEROY HUGHES Report Released Date/Time: Aug 31, 2024 09:28 AM Reporting Lab: [place] [phone] Performing Lab: [place] [phone] [facility] CBC & DIFF IMMATURE GRANULOCYTE S/100 LEUKOCYTES IN BLOOD BY AUTOMATED COUNT 0.6 09/01 Specimen Type: BLOOD No comment entered. Ordering Provider: LEEROY HUGHES Report Released Date/Time: Aug 31, 2024 09:28 AM Reporting Lab: [place] [phone] Performing Lab: [place] [id number] ANTI-Xa (CO) ANTI-Xa (CO) <0.04[ IU]/mL 0.3 - 0.7 08/31 Specimen Type: BLOOD Comment: Critical Values: Unfractionat ed Heparin: > 1.0 IU/mL For Low Molecular Weight Heparin reference ranges contact lab. Ordering Provider: Manisha BARRIOS Report Released Date/Time: Aug 27, 2024 12:18 PM Reporting Lab: [address] [address] Performing Lab: [address] [phone] [place] [address] MAGNESIUM (mg/dL) MAGNESIUM [MASS/VOLUM E] IN SERUM OR PLASMA 2.2 mg/dL 1.6 - 2.6 08/31 Specimen Type: PLASMA No comment entered. Ordering Provider: LEEROY HUGHES Report Released Date/Time: Aug 30, 2024 11:25 AM Reporting Lab: [address] [address] Performing Lab: [place] [phone] [place] [address] COMPREHENS DAVEY METABOLIC PANEL CREATININE [MASS/VOLUM E] IN SERUM OR PLASMA 1.04 mg/dL 0.70 - 1.30 08/31 Specimen Type: PLASMA No comment entered. Ordering Provider: LEEROY HUGHES Report Released Date/Time: Aug 30, 2024 11:25 AM Reporting Lab: [address] [address] Performing Lab: [place] [phone] [facility] COMPREHENS DAVEY METABOLIC PANEL UREA NITROGEN [MASS/VOLUM E] IN SERUM OR PLASMA 18 mg/dL 9 - 25 08/31 Specimen Type: PLASMA No comment entered. Ordering Provider: LEEROY HUGHES Report Released Date/Time: Aug 30, 2024 11:25 AM Reporting Lab: [address] [address] Performing Lab: [address] [address] [facility] COMPREHENS DAVEY METABOLIC PANEL GLUCOSE [MASS/VOLUM E] IN SERUM OR PLASMA 93 mg/dL 72 - 99 08/31 Specimen Type: PLASMA No comment entered. Ordering Provider: LEEROY HUGHES Report Released Date/Time: Aug 30, 2024 11:25 AM Reporting Lab: [address] [address] Performing Lab: [address] [address] [facility] COMPREHENS DAVEY METABOLIC PANEL SODIUM [MOLES/VOLU ME] IN SERUM OR PLASMA 140 meq/L 136 - 145 08/31 Specimen Type: PLASMA No comment entered. Ordering Provider: LEEROY HUGHES Report Released Date/Time: Aug 30, 2024 11:25 AM Reporting Lab: [place] [phone] Performing Lab: [place] [phone] [facility] COMPREHENS DAVEY METABOLIC PANEL POTASSIUM [MOLES/VOLU ME] IN SERUM OR PLASMA 4.5 meq/L 3.5 - 5 08/31 Specimen Type: PLASMA No comment entered. Ordering Provider: LEEROY HUGHES Report Released Date/Time: Aug 30, 2024 11:25 AM Reporting Lab: [place] [phone] Performing Lab: [place] [phone] [facility] COMPREHENS DAVEY METABOLIC PANEL CALCIUM [MASS/VOLUM E] IN SERUM OR PLASMA 9.2 mg/dL 8.4 - 10.4 08/31 Specimen Type: PLASMA No comment entered. Ordering Provider: LEEROY HUGHES Report Released Date/Time: Aug 30, 2024 11:25 AM Reporting Lab: [place] [phone] Performing Lab: [place] [phone] [facility] COMPREHENS DAVEY METABOLIC PANEL PROTEIN [MASS/VOLUM E] IN SERUM OR PLASMA 7.0 g/dL 6.0 - 8.6 08/31 Specimen Type: PLASMA No comment entered. Ordering Provider: LEEROY HUGHES Report Released Date/Time: Aug 30, 2024 11:25 AM Reporting Lab: [place] [phone] Performing Lab: [place] [phone] [facility] COMPREHENS DAVEY METABOLIC PANEL ALBUMIN [MASS/VOLUM E] IN SERUM OR PLASMA 4.1 g/dL 3.4 - 5.0 08/31 Specimen Type: PLASMA No comment entered. Ordering Provider: LEEROY HUGHES Report Released Date/Time: Aug 30, 2024 11:25 AM Reporting Lab: [place] [phone] Performing Lab: [place] [phone] COMPREHENS DAVEY METABOLIC PANEL BILIRUBIN.T OTAL [MASS/VOLUM E] IN SERUM OR PLASMA 0.7 mg/dL 0.2 - 1.2 08/31 Specimen Type: PLASMA No comment entered. Ordering Provider: LEEROY HUGHES Report Released Date/Time: Aug 30, 2024 11:25 AM Reporting Lab: [place] [phone] Performing Lab: [place] [phone] COMPREHENS DAVEY METABOLIC PANEL ASPARTATE AMINOTRANSF ERASE [ENZYMATIC ACTIVITY/VO LUME] IN SERUM OR PLASMA 12 U/L 5 - 34 08/31 Specimen Type: PLASMA No comment entered. Ordering Provider: LEEROY HUGHES Report Released Date/Time: Aug 30, 2024 11:25 AM Reporting Lab: [place] [phone] Performing Lab: [place] [phone] [place] [address] COMPREHENS DAVEY METABOLIC PANEL ALANINE AMINOTRANSF ERASE [ENZYMATIC ACTIVITY/VO LUME] IN SERUM OR PLASMA 8 U/L 8 - 40 08/31 Specimen Type: PLASMA No comment entered. Ordering Provider: LEEROY HUGHES Report Released Date/Time: Aug 30, 2024 11:25 AM Reporting Lab: [place] [phone] Performing Lab: [place] [phone] [facility] COMPREHENS DAVEY METABOLIC PANEL CHLORIDE [MOLES/VOLU ME] IN SERUM OR PLASMA 108 meq/L 98 - 107 08/31 H Specimen Type: PLASMA No comment entered. Ordering Provider: LEEROY HUGHES Report Released Date/Time: Aug 30, 2024 11:25 AM Reporting Lab: [place] [phone] Performing Lab: [place] [phone] [facility] COMPREHENS DAVEY METABOLIC PANEL CARBON DIOXIDE, TOTAL [MOLES/VOLU ME] IN SERUM OR PLASMA 24 meq/L 22 - 31 08/31 Specimen Type: PLASMA No comment entered. Ordering Provider: LEEROY HUGHES Report Released Date/Time: Aug 30, 2024 11:25 AM Reporting Lab: [place] [phone] Performing Lab: [place] [phone] [facility] COMPREHENS DAVEY METABOLIC PANEL ALKALINE PHOSPHATASE [ENZYMATIC ACTIVITY/VO LUME] IN SERUM OR PLASMA 56 U/L 40 - 150 08/31 Specimen Type: PLASMA No comment entered. Ordering Provider: LEEROY HUGHES Report Released Date/Time: Aug 30, 2024 11:25 AM Reporting Lab: [place] [phone] Performing Lab: [place] [phone] [facility] COMPREHENS DAVEY METABOLIC PANEL GLOMERULAR FILTRATION RATE/1.73 SQ M.PREDICTED [VOLUME RATE/AREA] IN SERUM, PLASMA OR BLOOD BY CREATININE- BASED FORMULA (CKD-EPI 2020) 72 08/31 Specimen Type: PLASMA No comment entered. Ordering Provider: LEEROY HUGHES Report Released Date/Time: Aug 30, 2024 11:25 AM Reporting Lab: [place] [phone] Performing Lab: [place] [phone] [facility] CBC & DIFF LEUKOCYTES [#/VOLUME] IN BLOOD BY AUTOMATED COUNT 9.50 10*3/u L 3.6 - 11.2 08/31 Specimen Type: BLOOD No comment entered. Ordering Provider: LEEROY HUGHES Report Released Date/Time: Aug 30, 2024 11:25 AM Reporting Lab: [place] [phone] Performing Lab: [place] [phone] [facility] CBC & DIFF ERYTHROCYTE S [#/VOLUME] IN BLOOD BY AUTOMATED COUNT 4.12 10*6/u L 4.10 - 5.70 08/31 Specimen Type: BLOOD No comment entered. Ordering Provider: LEEROY HUGHES Report Released Date/Time: Aug 30, 2024 11:25 AM Reporting Lab: [address] [address] Performing Lab: [address] [phone] [facility] CBC & DIFF HEMOGLOBIN [MASS/VOLUM E] IN BLOOD 14.0 g/dL 13.1 - 16.8 08/31 Specimen Type: BLOOD No comment entered. Ordering Provider: LEEROY HUGHES Report Released Date/Time: Aug 30, 2024 11:25 AM Reporting Lab: [address] [address] Performing Lab: [place] [phone] [facility] CBC & DIFF HEMATOCRIT [VOLUME FRACTION] OF BLOOD BY AUTOMATED COUNT 38.2 38.2 - 48.4 08/31 Specimen Type: BLOOD No comment entered. Ordering Provider: LEEROY HUGHES Report Released Date/Time: Aug 30, 2024 11:25 AM Reporting Lab: [address] [address] Performing Lab: [place] [phone] [facility] CBC & DIFF MCV [ENTITIC VOLUME] BY AUTOMATED COUNT 92.7 fL 80.0 - 100.0 08/31 Specimen Type: BLOOD No comment entered. Ordering Provider: LEEROY HUGHES Report Released Date/Time: Aug 30, 2024 11:25 AM Reporting Lab: [address] [address] Performing Lab: [place] [phone] [facility] CBC & DIFF MCH [ENTITIC MASS] BY AUTOMATED COUNT 34.0 pg 27.0 - 34.0 08/31 Specimen Type: BLOOD No comment entered. Ordering Provider: LEEROY HUGHES Report Released Date/Time: Aug 30, 2024 11:25 AM Reporting Lab: [address] [phone] Performing Lab: [address] [address] [facility] CBC & DIFF MCHC [MASS/VOLUM E] BY AUTOMATED COUNT 36.6 g/dL 33.0 - 36.0 08/31 H Specimen Type: BLOOD No comment entered. Ordering Provider: LEEROY HUGHES Report Released Date/Time: Aug 30, 2024 11:25 AM Reporting Lab: [address] [address] Performing Lab: [place] [phone] [facility] CBC & DIFF PLATELETS [#/VOLUME] IN BLOOD BY AUTOMATED COUNT 158 10*3/u L 150 - 400 08/31 Specimen Type: BLOOD No comment entered. Ordering Provider: LEEROY HUGHES Report Released Date/Time: Aug 30, 2024 11:25 AM Reporting Lab: [place] [phone] Performing Lab: [place] [phone] [place] [address] CBC & DIFF PLATELET MEAN VOLUME [ENTITIC VOLUME] IN BLOOD BY AUTOMATED COUNT 10.9 fL 7.5 - 11.2 08/31 Specimen Type: BLOOD No comment entered. Ordering Provider: LEEROY HUGHES Report Released Date/Time: Aug 30, 2024 11:25 AM Reporting Lab: [place] [phone] Performing Lab: [place] [phone] CBC & DIFF ERYTHROCYTE DISTRIBUTIO N WIDTH [RATIO] BY AUTOMATED COUNT 12.4 11.8 - 15.1 08/31 Specimen Type: BLOOD No comment entered. Ordering Provider: LEEROY HUGHES Report Released Date/Time: Aug 30, 2024 11:25 AM Reporting Lab: [place] [phone] Performing Lab: [place] [phone] [place] [address] CBC & DIFF LYMPHOCYTES /100 LEUKOCYTES IN BLOOD BY AUTOMATED COUNT 30.8 08/31 Specimen Type: BLOOD No comment entered. Ordering Provider: LEEROY HUGHES Report Released Date/Time: Aug 30, 2024 11:25 AM Reporting Lab: [place] [phone] Performing Lab: [address] [address] [facility] CBC & DIFF NEUTROPHILS /100 LEUKOCYTES IN BLOOD BY AUTOMATED COUNT 60.3 08/31 Specimen Type: BLOOD No comment entered. Ordering Provider: LEEROY HUGHES Report Released Date/Time: Aug 30, 2024 11:25 AM Reporting Lab: [address] [address] Performing Lab: [place] [phone] [facility] CBC & DIFF MONOCYTES/1 00 LEUKOCYTES IN BLOOD BY AUTOMATED COUNT 7.2 08/31 Specimen Type: BLOOD No comment entered. Ordering Provider: LEEROY HUGHES Report Released Date/Time: Aug 30, 2024 11:25 AM Reporting Lab: [place] [phone] Performing Lab: [place] [phone] [facility] CBC & DIFF MONOCYTES [#/VOLUME] IN BLOOD BY AUTOMATED COUNT 0.68 10*3/u L 0.19 - 0.8 08/31 Specimen Type: BLOOD No comment entered. Ordering Provider: LEEROY HUGHES Report Released Date/Time: Aug 30, 2024 11:25 AM Reporting Lab: [place] [phone] Performing Lab: [place] [phone] [facility] CBC & DIFF NEUTROPHILS [#/VOLUME] IN BLOOD BY AUTOMATED COUNT 5.73 10*3/u L 2.10 - 8.00 08/31 Specimen Type: BLOOD No comment entered. Ordering Provider: LEEROY HUGHES Report Released Date/Time: Aug 30, 2024 11:25 AM Reporting Lab: [place] [phone] Performing Lab: [place] [phone] [facility] CBC & DIFF EOSINOPHILS [#/VOLUME] IN BLOOD BY AUTOMATED COUNT 0.06 10*3/u L 0.00 - 0.60 08/31 Specimen Type: BLOOD No comment entered. Ordering Provider: LEEROY HUGHES Report Released Date/Time: Aug 30, 2024 11:25 AM Reporting Lab: [place] [address] [facility] [phone] Performing Lab: [place] [phone] [facility] CBC & DIFF BASOPHILS [#/VOLUME] IN BLOOD BY AUTOMATED COUNT 0.04 10*3/u L 0.00 - 0.20 08/31 Specimen Type: BLOOD No comment entered. Ordering Provider: LEEROY HUGHES Report Released Date/Time: Aug 30, 2024 11:25 AM Reporting Lab: [place] [phone] Performing Lab: [place] [phone] [facility] CBC & DIFF EOSINOPHILS /100 LEUKOCYTES IN BLOOD BY AUTOMATED COUNT 0.6 08/31 Specimen Type: BLOOD No comment entered. Ordering Provider: LEEROY HUGHES Report Released Date/Time: Aug 30, 2024 11:25 AM Reporting Lab: [place] [phone] Performing Lab: [place] [id number] [place] [address] CBC & DIFF BASOPHILS/1 00 LEUKOCYTES IN BLOOD BY AUTOMATED COUNT 0.4 08/31 Specimen Type: BLOOD No comment entered. Ordering Provider: LEEROY HUGHES Report Released Date/Time: Aug 30, 2024 11:25 AM Reporting Lab: [place] [phone] Performing Lab: [place] [phone] [place] [address] CBC & DIFF LYMPHOCYTES [#/VOLUME] IN BLOOD BY AUTOMATED COUNT 2.93 10*3/u L 0.77 - 4.50 08/31 Specimen Type: BLOOD No comment entered. Ordering Provider: LEEROY HUGHES Report Released Date/Time: Aug 30, 2024 11:25 AM Reporting Lab: [place] [phone] Performing Lab: [place] [phone] [facility] CBC & DIFF IMMATURE GRANULOCYTE S [#/VOLUME] IN BLOOD BY AUTOMATED COUNT 0.07 10*3/u L 0.00 - 0.05 08/31 H Specimen Type: BLOOD No comment entered. Ordering Provider: LEEROY HUGHES Report Released Date/Time: Aug 30, 2024 11:25 AM Reporting Lab: [address] [address] Performing Lab: [phone] [place] [address] CBC & DIFF IMMATURE GRANULOCYTE S/100 LEUKOCYTES IN BLOOD BY AUTOMATED COUNT 0.7 08/31 Specimen Type: BLOOD No comment entered. Ordering Provider: LEEROY HUGHES Report Released Date/Time: Aug 30, 2024 11:25 AM Reporting Lab: [address] [address] Performing Lab: [place] [phone] [facility] CMP-NONFAS TING ([place]) CREATININE [MASS/VOLUM E] IN SERUM OR PLASMA 1.10 mg/dL 0.70 - 1.30 08/30 Specimen Type: PLASMA No comment entered. Ordering Provider: Manisha BARRIOS Report Released Date/Time: Aug 29, 2024 12:07 PM Reporting Lab: [address] [address] Performing Lab: [address] [address] [facility] CMP-NONFAS TING ([place]) UREA NITROGEN [MASS/VOLUM E] IN SERUM OR PLASMA 20 mg/dL 9 - 25 08/30 Specimen Type: PLASMA No comment entered. Ordering Provider: Manisha BARRIOS Report Released Date/Time: Aug 29, 2024 12:07 PM Reporting Lab: [address] [address] Performing Lab: [address] [address] [facility] CMP-NONFAS TING ([place]) GLUCOSE [MASS/VOLUM E] IN SERUM OR PLASMA 95 mg/dL 72 - 99 08/30 Specimen Type: PLASMA No comment entered. Ordering Provider: Manisha BARRIOS Report Released Date/Time: Aug 29, 2024 12:07 PM Reporting Lab: [address] [address] Performing Lab: [address] [address] [facility] CMP-NONFAS TING ([place]) SODIUM [MOLES/VOLU ME] IN SERUM OR PLASMA 138 meq/L 136 - 145 08/30 Specimen Type: PLASMA No comment entered. Ordering Provider: Manisha BARRIOS Report Released Date/Time: Aug 29, 2024 12:07 PM Reporting Lab: [place] [phone] Performing Lab: [place] [phone] [facility] CMP-NONFAS TING ([place]) POTASSIUM [MOLES/VOLU ME] IN SERUM OR PLASMA 4.4 meq/L 3.5 - 5 08/30 Specimen Type: PLASMA No comment entered. Ordering Provider: Manisha BARRIOS Report Released Date/Time: Aug 29, 2024 12:07 PM Reporting Lab: [place] [phone] Performing Lab: [place] [phone] [facility] CMP-NONFAS TING ([place]) CALCIUM [MASS/VOLUM E] IN SERUM OR PLASMA 8.6 mg/dL 8.4 - 10.4 08/30 Specimen Type: PLASMA No comment entered. Ordering Provider: Manisha BARRIOS Report Released Date/Time: Aug 29, 2024 12:07 PM Reporting Lab: [place] [phone] Performing Lab: [place] [phone] [facility] CMP-NONFAS TING ([place]) PROTEIN [MASS/VOLUM E] IN SERUM OR PLASMA 6.4 g/dL 6.0 - 8.6 08/30 Specimen Type: PLASMA No comment entered. Ordering Provider: Manisha BARRIOS Report Released Date/Time: Aug 29, 2024 12:07 PM Reporting Lab: [place] [phone] Performing Lab: [place] [phone] [facility] CMP-NONFAS TING ([place]) ALBUMIN [MASS/VOLUM E] IN SERUM OR PLASMA 3.8 g/dL 3.4 - 5.0 08/30 Specimen Type: PLASMA No comment entered. Ordering Provider: Manisha BARRIOS Report Released Date/Time: Aug 29, 2024 12:07 PM Reporting Lab: [place] [id number] Performing Lab: [address] CMP-NONFAS TING ([place]) BILIRUBIN.T OTAL [MASS/VOLUM E] IN SERUM OR PLASMA 0.9 mg/dL 0.2 - 1.2 08/30 Specimen Type: PLASMA No comment entered. Ordering Provider: Manisha BARRIOS Report Released Date/Time: Aug 29, 2024 12:07 PM Reporting Lab: [place] [address] Performing Lab: [address] CMP-NONFAS [place] ([place]) ASPARTATE AMINOTRANSF ERASE [ENZYMATIC ACTIVITY/VO LUME] IN SERUM OR PLASMA 13 U/L 5 - 34 08/30 Specimen Type: PLASMA No comment entered. Ordering Provider: Manisha BARRIOS Report Released Date/Time: Aug 29, 2024 12:07 PM Reporting Lab: [place] [address] Performing Lab: [address] CMP-[place]AS [place] ([place]) ALANINE AMINOTRANSF ERASE [ENZYMATIC ACTIVITY/VO LUME] IN SERUM OR PLASMA 8 U/L 8 - 40 08/30 Specimen Type: PLASMA No comment entered. Ordering Provider: Manisha BARRIOS Report Released Date/Time: Aug 29, 2024 12:07 PM Reporting Lab: [place] [id number] Performing Lab: [place] [phone] CMP-NONFAS T[place] ([place]) CHLORIDE [MOLES/VOLU ME] IN SERUM OR PLASMA 110 meq/L 98 - 107 08/30 H Specimen Type: PLASMA No comment entered. Ordering Provider: Manisha BARRIOS Report Released Date/Time: Aug 29, 2024 12:07 PM Reporting Lab: [address] [address] Performing Lab: [address] [phone] [place] [address] CMP-NONFAS TING ([place]) CARBON DIOXIDE, TOTAL [MOLES/VOLU ME] IN SERUM OR PLASMA 21 meq/L 22 - 31 08/30 L Specimen Type: PLASMA No comment entered. Ordering Provider: Manisha BARRIOS Report Released Date/Time: Aug 29, 2024 12:07 PM Reporting Lab: [address] [address] Performing Lab: [address] CMP-NONFAS [place] ([place] ALKALINE PHOSPHATASE [ENZYMATIC ACTIVITY/VO LUME] IN SERUM OR PLASMA 52 U/L 40 - 150 08/30 Specimen Type: PLASMA No comment entered. Ordering Provider: Manisha BARRIOS Report Released Date/Time: Aug 29, 2024 12:07 PM Reporting Lab: [place] [phone] Performing Lab: [place] [phone] [place] [address] CMP-NONFAS TING ([place]) GLOMERULAR FILTRATION RATE/1.73 SQ M.PREDICTED [VOLUME RATE/AREA] IN SERUM, PLASMA OR BLOOD BY CREATININE- BASED FORMULA (CKD-EPI 2020) 67 08/30 Specimen Type: PLASMA No comment entered. Ordering Provider: Manisha BARRIOS Report Released Date/Time: Aug 29, 2024 12:07 PM Reporting Lab: [place] [phone] Performing Lab: [place] [phone] [facility] CBC & DIFF LEUKOCYTES [#/VOLUME] IN BLOOD BY AUTOMATED COUNT 8.80 10*3/u L 3.6 - 11.2 08/30 Specimen Type: BLOOD No comment entered. Ordering Provider: Manisha BARRIOS Report Released Date/Time: Aug 29, 2024 12:07 PM Reporting Lab: [address] [address] Performing Lab: [place] [phone] [facility] CBC & DIFF ERYTHROCYTE S [#/VOLUME] IN BLOOD BY AUTOMATED COUNT 3.99 10*6/u L 4.10 - 5.70 08/30 L Specimen Type: BLOOD No comment entered. Ordering Provider: Manisha BARRIOS Report Released Date/Time: Aug 29, 2024 12:07 PM Reporting Lab: [place] [phone] Performing Lab: [place] [phone] [facility] CBC & DIFF HEMOGLOBIN [MASS/VOLUM E] IN BLOOD 13.4 g/dL 13.1 - 16.8 08/30 Specimen Type: BLOOD No comment entered. Ordering Provider: Manisha BARRIOS Report Released Date/Time: Aug 29, 2024 12:07 PM Reporting Lab: [place] [phone] Performing Lab: [place] [phone] [facility] CBC & DIFF HEMATOCRIT [VOLUME FRACTION] OF BLOOD BY AUTOMATED COUNT 37.0 38.2 - 48.4 08/30 L Specimen Type: BLOOD No comment entered. Ordering Provider: Manisha BARRIOS Report Released Date/Time: Aug 29, 2024 12:07 PM Reporting Lab: [place] [phone] Performing Lab: [place] [phone] [facility] CBC & DIFF MCV [ENTITIC VOLUME] BY AUTOMATED COUNT 92.7 fL 80.0 - 100.0 08/30 Specimen Type: BLOOD No comment entered. Ordering Provider: Manisha BARRIOS Report Released Date/Time: Aug 29, 2024 12:07 PM Reporting Lab: [place] [phone] Performing Lab: [place] [phone] [facility] CBC & DIFF MCH [ENTITIC MASS] BY AUTOMATED COUNT 33.6 pg 27.0 - 34.0 03/24 /2025 Specimen Type: BLOOD No comment entered. Ordering Provider: Manisha BARRIOS Report Released Date/Time: Aug 29, 2024 12:07 PM Reporting Lab: [address] [address] Performing Lab: [address] [address] [facility] CBC & DIFF MCHC [MASS/VOLUM E] BY AUTOMATED COUNT 36.2 g/dL 33.0 - 36.0 08/30 H Specimen Type: BLOOD No comment entered. Ordering Provider: Manisha BARRIOS Report Released Date/Time: Aug 29, 2024 12:07 PM Reporting Lab: [place] [phone] Performing Lab: [place] [phone] [facility] CBC & DIFF PLATELETS [#/VOLUME] IN BLOOD BY AUTOMATED COUNT 154 10*3/u L 150 - 400 08/30 Specimen Type: BLOOD No comment entered. Ordering Provider: Manisha BARRIOS Report Released Date/Time: Aug 29, 2024 12:07 PM Reporting Lab: [place] [phone] Performing Lab: [place] [phone] [facility] CBC & DIFF PLATELET MEAN VOLUME [ENTITIC VOLUME] IN BLOOD BY AUTOMATED COUNT 10.8 fL 7.5 - 11.2 08/30 Specimen Type: BLOOD No comment entered. Ordering Provider: Manisha BARRIOS Report Released Date/Time: Aug 29, 2024 12:07 PM Reporting Lab: [address] [address] Performing Lab: [place] [phone] [facility] CBC & DIFF ERYTHROCYTE DISTRIBUTIO N WIDTH [RATIO] BY AUTOMATED COUNT 12.3 11.8 - 15.1 08/30 Specimen Type: BLOOD No comment entered. Ordering Provider: Manisha BARRIOS Report Released Date/Time: Aug 29, 2024 12:07 PM Reporting Lab: [address] [address] Performing Lab: [address] [address] [facility] CBC & DIFF LYMPHOCYTES /100 LEUKOCYTES IN BLOOD BY AUTOMATED COUNT 30.9 08/30 Specimen Type: BLOOD No comment entered. Ordering Provider: Manisha BARRIOS Report Released Date/Time: Aug 29, 2024 12:07 PM Reporting Lab: [address] [address] Performing Lab: [place] [phone] CBC & DIFF NEUTROPHILS /100 LEUKOCYTES IN BLOOD BY AUTOMATED COUNT 58.5 08/30 Specimen Type: BLOOD No comment entered. Ordering Provider: Manisha BARRIOS Report Released Date/Time: Aug 29, 2024 12:07 PM Reporting Lab: [place] [phone] Performing Lab: [address] CBC & DIFF MONOCYTES/1 00 LEUKOCYTES IN BLOOD BY AUTOMATED COUNT 8.5 08/30 Specimen Type: BLOOD No comment entered. Ordering Provider: Manisha BARRIOS Report Released Date/Time: Aug 29, 2024 12:07 PM Reporting Lab: [place] [phone] Performing Lab: [address] CBC & DIFF MONOCYTES [#/VOLUME] IN BLOOD BY AUTOMATED COUNT 0.75 10*3/u L 0.19 - 0.8 08/30 Specimen Type: BLOOD No comment entered. Ordering Provider: Manisha BARRIOS Report Released Date/Time: Aug 29, 2024 12:07 PM Reporting Lab: [place] [phone] Performing Lab: [address] CBC & DIFF NEUTROPHILS [#/VOLUME] IN BLOOD BY AUTOMATED COUNT 5.17 10*3/u L 2.10 - 8.00 08/30 Specimen Type: BLOOD No comment entered. Ordering Provider: Manisha BARRIOS Report Released Date/Time: Aug 29, 2024 12:07 PM Reporting Lab: [address] [address] Performing Lab: [address] [address] [facility] CBC & DIFF EOSINOPHILS [#/VOLUME] IN BLOOD BY AUTOMATED COUNT 0.08 10*3/u L 0.00 - 0.60 08/30 Specimen Type: BLOOD No comment entered. Ordering Provider: Manisha BARRIOS Report Released Date/Time: Aug 29, 2024 12:07 PM Reporting Lab: [address] [address] Performing Lab: [address] [address] [facility] CBC & DIFF BASOPHILS [#/VOLUME] IN BLOOD BY AUTOMATED COUNT 0.03 10*3/u L 0.00 - 0.20 08/30 Specimen Type: BLOOD No comment entered. Ordering Provider: Manisha BARRIOS Report Released Date/Time: Aug 29, 2024 12:07 PM Reporting Lab: [address] [address] Performing Lab: [address] [address] [facility] CBC & DIFF EOSINOPHILS /100 LEUKOCYTES IN BLOOD BY AUTOMATED COUNT 0.9 08/30 Specimen Type: BLOOD No comment entered. Ordering Provider: Manisha BARRIOS Report Released Date/Time: Aug 29, 2024 12:07 PM Reporting Lab: [address] [address] Performing Lab: [address] [address] [facility] CBC & DIFF BASOPHILS/1 00 LEUKOCYTES IN BLOOD BY AUTOMATED COUNT 0.3 08/30 Specimen Type: BLOOD No comment entered. Ordering Provider: Manisha BARRIOS Report Released Date/Time: Aug 29, 2024 12:07 PM Reporting Lab: [address] [address] Performing Lab: [address] [address] [facility] CBC & DIFF LYMPHOCYTES [#/VOLUME] IN BLOOD BY AUTOMATED COUNT 2.73 10*3/u L 0.77 - 4.50 08/30 Specimen Type: BLOOD No comment entered. Ordering Provider: Manisha BARRIOS Report Released Date/Time: Aug 29, 2024 12:07 PM Reporting Lab: [place] [phone] Performing Lab: [place] [phone] CBC & DIFF IMMATURE GRANULOCYTE S [#/VOLUME] IN BLOOD BY AUTOMATED COUNT 0.08 10*3/u L 0.00 - 0.05 08/30 H Specimen Type: BLOOD No comment entered. Ordering Provider: Manisha BARRIOS Report Released Date/Time: Aug 29, 2024 12:07 PM Reporting Lab: [place] [address] Performing Lab: [address] CBC & DIFF IMMATURE GRANULOCYTE S/100 LEUKOCYTES IN BLOOD BY AUTOMATED COUNT 0.9 08/30 Specimen Type: BLOOD No comment entered. Ordering Provider: Manisha BARRIOS Report Released Date/Time: Aug 29, 2024 12:07 PM Reporting Lab: [place] [id number] Performing Lab: [address] CMP-NONFAS T[place] ([place]) CREATININE [MASS/VOLUM E] IN SERUM OR PLASMA 1.04 mg/dL 0.70 - 1.30 08/29 Specimen Type: PLASMA No comment entered. Ordering Provider: Manisha BARRIOS Report Released Date/Time: Aug 28, 2024 10:54 AM Reporting Lab: [place] [phone] Performing Lab: [address] CMP-[place]FAS [place] ([place]) UREA NITROGEN [MASS/VOLUM E] IN SERUM OR PLASMA 15 mg/dL 9 - 08/29 Specimen Type: PLASMA No comment entered. Ordering Provider: Manisha BARRIOS Report Released Date/Time: Aug 28, 2024 10:54 AM Reporting Lab: [address] [address] Performing Lab: [address] [address] [facility] CMP-NONFAS TING ([place]) GLUCOSE [MASS/VOLUM E] IN SERUM OR PLASMA 95 mg/dL 72 - 99 08/29 Specimen Type: PLASMA No comment entered. Ordering Provider: Manisha BARRIOS Report Released Date/Time: Aug 28, 2024 10:54 AM Reporting Lab: [place] [phone] Performing Lab: [place] [phone] [facility] CMP-NONFAS TING ([place]) SODIUM [MOLES/VOLU ME] IN SERUM OR PLASMA 139 meq/L 136 - 145 08/29 Specimen Type: PLASMA No comment entered. Ordering Provider: Manisha BARRIOS Report Released Date/Time: Aug 28, 2024 10:54 AM Reporting Lab: [place] [phone] Performing Lab: [place] [phone] [facility] CMP-NONFAS TING ([place]) POTASSIUM [MOLES/VOLU ME] IN SERUM OR PLASMA 4.7 meq/L 3.5 - 5 08/29 Specimen Type: PLASMA No comment entered. Ordering Provider: Manisha BARRIOS Report Released Date/Time: Aug 28, 2024 10:54 AM Reporting Lab: [place] [phone] Performing Lab: [place] [phone] [facility] CMP-NONFAS TING ([place]) CALCIUM [MASS/VOLUM E] IN SERUM OR PLASMA 8.8 mg/dL 8.4 - 10.4 08/29 Specimen Type: PLASMA No comment entered. Ordering Provider: Manisha BARRIOS Report Released Date/Time: Aug 28, 2024 10:54 AM Reporting Lab: [place] [phone] Performing Lab: [place] [phone] [facility] CMP-NONFAS TING ([place]) PROTEIN [MASS/VOLUM E] IN SERUM OR PLASMA 6.7 g/dL 6.0 - 8.6 08/29 Specimen Type: PLASMA No comment entered. Ordering Provider: Manisha BARRIOS Report Released Date/Time: Aug 28, 2024 10:54 AM Reporting Lab: [place] [phone] Performing Lab: [place] [phone] CMP-NONFAS TING ([place]) ALBUMIN [MASS/VOLUM E] IN SERUM OR PLASMA 3.9 g/dL 3.4 - 5.0 08/29 Specimen Type: PLASMA No comment entered. Ordering Provider: Manisha BARRIOS Report Released Date/Time: Aug 28, 2024 10:54 AM Reporting Lab: [place] [phone] Performing Lab: [place] [phone] [place] [address] CMP-NONFAS TING ([place]) BILIRUBIN.T OTAL [MASS/VOLUM E] IN SERUM OR PLASMA 0.7 mg/dL 0.2 - 1.2 08/29 Specimen Type: PLASMA No comment entered. Ordering Provider: Manisha BARRIOS Report Released Date/Time: Aug 28, 2024 10:54 AM Reporting Lab: [place] [phone] Performing Lab: [place] [phone] [place] [address] CMP-NONFAS TING ([place]) ASPARTATE AMINOTRANSF ERASE [ENZYMATIC ACTIVITY/VO LUME] IN SERUM OR PLASMA 17 U/L 5 - 34 08/29 Specimen Type: PLASMA No comment entered. Ordering Provider: Manisha BARRIOS Report Released Date/Time: Aug 28, 2024 10:54 AM Reporting Lab: [place] [phone] Performing Lab: [place] [phone] [facility] CMP-NONFAS TING ([place]) ALANINE AMINOTRANSF ERASE [ENZYMATIC ACTIVITY/VO LUME] IN SERUM OR PLASMA 8 U/L 8 - 40 08/29 Specimen Type: PLASMA No comment entered. Ordering Provider: Manisha BARRIOS Report Released Date/Time: Aug 28, 2024 10:54 AM Reporting Lab: [place] [phone] Performing Lab: [place] [phone] [place] [address] CMP-NONFAS TING ([place]) CHLORIDE [MOLES/VOLU ME] IN SERUM OR PLASMA 107 meq/L 98 - 107 08/29 Specimen Type: PLASMA No comment entered. Ordering Provider: Manisha BARRIOS Report Released Date/Time: Aug 28, 2024 10:54 AM Reporting Lab: [place] [phone] Performing Lab: [place] [phone] CMP-NONFAS T[place] ([place]) CARBON DIOXIDE, TOTAL [MOLES/VOLU ME] IN SERUM OR PLASMA 23 meq/L 22 - 31 08/29 Specimen Type: PLASMA No comment entered. Ordering Provider: Manisha BARRIOS Report Released Date/Time: Aug 28, 2024 10:54 AM Reporting Lab: [place] [phone] Performing Lab: [place] [phone] CMP-NONFAS T[place] ([place]) ALKALINE PHOSPHATASE [ENZYMATIC ACTIVITY/VO LUME] IN SERUM OR PLASMA 50 U/L 40 - 150 08/29 Specimen Type: PLASMA No comment entered. Ordering Provider: Manisha BARRIOS Report Released Date/Time: Aug 28, 2024 10:54 AM Reporting Lab: [place] [phone] Performing Lab: [place] [phone] CMP-NONFAS TING ([place]) GLOMERULAR FILTRATION RATE/1.73 SQ M.PREDICTED [VOLUME RATE/AREA] IN SERUM, PLASMA OR BLOOD BY CREATININE- BASED FORMULA (CKD-EPI 2020) 72 08/29 Specimen Type: PLASMA No comment entered. Ordering Provider: Manisha BARRIOS Report Released Date/Time: Aug 28, 2024 10:54 AM Reporting Lab: [facility] [address] [facility] [address] Performing Lab: [facility] [address] [facility] [address] KESHAV Dyer [place] Vital Signs Combined list of inpatient and outpatient Vital Signs from Department of Defense and Veterans Affairs, ranging from 12 months to all on record, depending upon the facility. Vital Sign Value Date Comments Source WEIGHT 193.79 09/01/2024 06:50:53 [facility] BMI 30 kg/m2 09/01/2024 06:50:53 [facility] WEIGHT 216.71 08/31/2024 07:24:05 [facility] BMI 34 kg/m2 08/31/2024 07:24:05 [facility] SYSTOLIC BLOOD PRESSURE 110 08/30/2024 20:00:00 [facility] DIASTOLIC BLOOD PRESSURE 54 08/30/2024 20:00:00 [facility] PULSE OXIMETRY 96 08/30/2024 20:00:00 [facility] 0 08/30/2024 20:00:00 [facility] TEMPERATURE 97.9 08/30/2024 20:00:00 [facility] 08/30/2024 20:00:00 [facility] RESPIRATION 19 08/30/2024 20:00:00 [facility] SYSTOL[facility]LO[facility] PRESSURE 106 08/29/2024 20:00:00 [facility] DIASTOLIC BLOOD PRESSURE 54 08/29/2024 20:00:00 [facility] PULSE OXIMETRY 96 08/29/2024 20:00:00 [facility] PAIN 0 08/29/2024 20:00:00 [facility] TEMPERATURE 97.5 08/29/2024 20:00:00 [facility] 49 08/29/2024 20:00:00 [facility] 19 08/29/2024 20:00:00 [facility] WEIGHT 192.68 08/28/2024 05:00:00 [facility] BMI 30 kg/m2 08/28/2024 05:00:00 ARELY CHUN [facility] Encounters Combined list of: 1) Encounters from Department of Veterans Affairs facilities going backup to the last 18 months, not all VA inpatient encounters are included; 2) Encounters from the Department of Defense facilities going backup to 280 months. Location Location Details Encounter Type Encounter Number Reason For Visit Attending Provider ADM Date DC Date Status Disposition Source [facility] [place] OUTPATIENT [id number] f/u hospita lizatio n VICTOR M RUIZ I 10/03 [facility] [place] [facility] [place]) OUTPATIENT [id number] f/u tests VICTOR M RUIZ I 11/27 [facility]itations [facility] [place] [facility]) [place] [id number] f/u tests plus shoulde rs pain VICTOR M RUIZ I 02/14 Released w/o Limitations [facility] [facility] [place]) OUTPATIENT [id number] f/u tests/l t shoulde r pain IMELDA [place]. 03/19 [facility]ased w/[facility] Limitations [facility] [facility]) [place] [id number] f/u cardiac CLAUDINE YUEN 06/17 [facility]ased w/o Limitations [facility] [facility] [place]) OUTPATIENT [id number] 702 aubree f/u IMELDA [place] 07/03 [facility]ased w/o Limitations [facility] [facility] [place]) OUTPATIENT [id number] F/U MRI SHOULDE R IMELDA [place] 07/17 [facility] w/o Limitations [facility] [place] [facility] [place]) OUTPATIENT [id number] rt rib pain IMELDA [place] 08/27 Released w/o Limitations [facility] [place] [facility] [place]PAT[place] [id number] REFLEX SYMPATH ETIC DYSTROP HY UPPER LIMB SHOULDE R IMELDA KIRBY 09/04 Released with Work/Duty Limitations [facility] [place] [facility] [place]) OUTPAT[place] [id number] needs bloodwo rk done IMELDA JOHNSTON 12/24 Released w/o Limitations [facility] [facility] [place]) OUTPAT[place] [id number] f/u for shoulde r per ALIDA Melgar 12/30 Released w/o Limitations [facility] [place] [place]) OUTPATIENT [id number] f/u chest pains per CRISTAL George 02/25 [facility]ased w/o Limitations [facility] [place] [place]) [place] [id number] FOLLOW- UP JOSÉ HOFFMAN 05/12 [facility]ased w/o Limitations [facility] [place] [facility] [place]) [place] [id number] f/u on heart stent JOSÉ HOFFMAN 07/11 Released w/o Limitations [facility] [facility] [place] [place]) [place]PAT[place] [id number] eye exam MAGALYS BAEZ Nathaniel 07/30 Released w/o Limitations [facility] [place] [facility] [place]) [place] [id number] DFE,FDT MAGALYS BAEZ Nathaniel 08/19 Released w/o Limitations [facility] [place] [facility] [place]) [place] [id number] PT HAS NOT SEEN DR. ESPINOZA NEEDS TO SEE HIM FOR MEDICAT IONS PER CLINIC ROSA ESPINOZA 08/26 Released w/o Limitations [facility] [place] [facility] [place]) [place] [id number] SKIN LESION SK ROLANDO BENZ 09/24 Released w/o Limitations [facility] [place] [facility] [place] TELE CONSULT [id number] labs to pt ROLANDO BENZ 09/26 [facility] [place] [facility] [place] [id number] f/u ROLANDO BENZ 11/26 Released w/o Limitations [facility] [place] [facility] [place]) [place] [id number] GEOVANNI CHUNG 05/25 Released w/o Limitations [facility] [place] [facility] [place]) [place] [id number] exam KAYLYNN PERDOMO 02/07 Released w/o Limitations [facility] [place] [facility] [place]) [place] [id number] flu shot REGINA FISHMAN 03/01 Released w/o Limitations [facility] [place] [facility] [place]) [place]PAT[place] [id number] REGINA FISHMAN 05/10 Released w/o Limitations [facility] [place] [facility] [place] [id number] EYE EXAM August, D 10/09 Released w/o Limitations [facility] [place] [facility] [place] [facility] [place] [id number] REE August, D 08/25 Released w/o Limitations [facility] [place] [facility] [place] [facility] [place] [facility] [place] [id number] exam SARAHI MAGALLON 10/11 Released w/o Limitations [facility] [place] [facility] [place] [facility] [place] [facility] [place] [id number] eye exam August, D 06/27 Released w/o Limitations [facility] [facility] [place] [facility] [place] [facility] [place] [id number] RADHA Veliz 10/14 Released w/o Limitations [facility] [place] [facility] [place] [facility] [place] [facility] [place] [id number] RADHA Veliz 11/14 Released w/o Limitations [facility] [place] [facility] [place] [facility] [place] [facility] [place] [id number] 5 Notes Entered by: KIARA RAMOS 16 Sep [id number] ------- ------- ------- ------- -- RTD FREDDIE FERRARO V 09/16 Released w/o Limitations [facility] [place] [facility] [place] 19[place] [facility] OFFICE O/P EST MOD 30-39 MIN 69110-2.58 [id number] 457 Diagnos is: ICD-10- CM H40.013 Open angle with borderl ine finding s, low risk, ANDRÉS Montes SALOME SHERINE 04/02 [facility] Outpatient Encounter 79677-2.58 [id number] 04/10 [facility] OFFICE O/P EST LOW 20-29 MIN 56687-0.58 [id number] 427 Diagnos is: ICD-10- CM L57.0 Actinic keratos is BARILINNEA MEREDITH 04/23 [facility] EYE EXAM&TX ESTAB PT 1/>VST 25298-7.58 [id number] 093 Diagnos is: ICD-10- CM H25.813 Combine d forms of age-rel ated catarac t, verena garcia BAXTER,ANI TRA RENETTA 04/28 [facility] OFF/OP EST MAY X REQ PHY/QHP 43139-0.58 [id number] 558 Diagnos is: ICD-10- CM Z71.9 Last Repairer ing, unspeci Riddhi Mcclain 04/28 [facility] Outpatient Encounter 15481-9.58 [id number] 04/30 [facility] OFFICE O/P EST MOD 30-39 MIN 62324-7.58 [id number] 460 Diagnos is: ICD-10- CM I10 Essenti al (primar y) hyperte nsion HENRIKAIN BEJARANO 04/30 [facility] Outpatient Encounter 25705-3.58 [id number] 05/08 [facility] Outpatient Encounter 44852-5.58 [id number] 923 BRENDEN,ER IC T 05/17 [facility] Outpatient Encounter 89278-8.58 [id number] 982 05/17 [facility] OFFICE O/P EST MOD 30-39 MIN 60049-0.58 [id number] 680 Diagnos is: ICD-10- CM R29.898 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 HENRIKAIN GARCIA 05/20 [facility] HC PRO PHONE CALL 5-10 MIN 86525-3.58 [id number] 090 Diagnos is: ICD-10- CM H26.9 Unspeci fied Jasvir Ann 05/20 [facility] Outpatient Encounter 08445-7.58 [id number] 475 05/21 [facility] Outpatient Encounter 64134-9.58 [id number] 05/21 [facility] OFFICE O/P EST HI 40-54 MIN 27001-8.58 [id number] 175 Diagnos is: ICD-10- CM Z01.818 Encount er for other preproc edural examJEANNA Pérez 05/23 [facility] HC PRO PHONE CALL 5-10 MIN 06809-6.58 [id number] 064 Diagnos is: ICD-10- CM H26.9 Unspeci fied Henri Mercado 05/23 [facility] Outpatient Encounter 81825-2.58 [id number] 1 05/24 [facility] Outpatient Encounter 73542-2.58 [id number] 9 05/27 [facility] Outpatient Encounter 65380-9.58 [id number] 06/25 [facility] Outpatient Encounter 23121-2.58 [id number] 5 06/26 [facility] Outpatient Encounter 10371-3.58 [id number] 3 07/10 [facility] Outpatient Encounter 40525-0.58 [id number] 07/11 [facility] ORAL HYGIENE INSTRUCTIO N 34516-7.58 [id number] 586 Diagnos is: ICD-10- CM K03.6 Deposit s [accret ions] on teeth Julian BENNETT 07/17 [facility] OFFICE O/P EST MOD 30 MIN 56392-1.58 [id number] 923 Diagnos is: ICD-10- CM 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, left eye, early dry stage Henri GARZON 07/18 [facility] OFF/OP EST MAY X REQ PHY/QHP 31569-2.58 [id number] 628 Diagnos is: ICD-10- CM Z71.9 Last Repairer ing, unspeci ERICA Perkins 07/18 [facility] Outpatient Encounter 46611-2.58 [id number] 07/24 [facility] Outpatient Encounter 16879-1.58 [id number] 982 KATI CUEVAS 07/31 [facility] OFFICE O/P EST LOW 20 MIN 87442-0.58 [id number] 889 Diagnos is: ICD-10- CM 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 ME RAMA MOREAU 07/31 [facility] OFFICE O/P EST HI 40 MIN 10958-4.58 [id number] 983 Diagnos is: ICD-10- CM Z01.818 Encount er for other preproc edural examina JEANNA Campos 08/13 [facility] Outpatient Encounter 80152-4.58 [id number] 903 Diagnos is: ICD-10- CM Z71.9 Last Repairer ing, unspeci fied MONCHO THORNTON 08/14 [facility] Outpatient Encounter 93429-1.58 [id number] 08/17 [facility] Outpatient Encounter 09961-2.58 [id number] 666 Diagnos is: ICD-10- CM H28 Catarac t in disease s classif ied elsewhe marlon CHAIDEZGAVINO THEW 08/17 [facility] OFFICE O/P EST SF 10 MIN 47281-4.58 [id number] 023 Diagnos is: ICD-10- CM 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, right eye SAHILQUIANASharri JACKSON 08/17 [facility] Outpatient Encounter 31744-7.58 [id number] 08/17 [facility] Outpatient Encounter 69958-2.58 [id number] SAHILQUIANASharri JACKSON 08/17 [facility] XCAPSL CTRC RMVL W/O ECP 31672-8.58 [id number] SARAHI BARRERA 08/17 [facility] Outpatient Encounter 52949-6.58 [id number] 573 SARAHI BARRERA 08/17 [facility] INTRM OPH EXAM EST PATIENT 55279-6.58 [id number] 138 Diagnos is: ICD-10- CM 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 BAXTERQUIANASharri TRA RENETTA 08/18 [facility] Outpatient Encounter 21853-0.58 [id number] 08/20 [facility] OFFICE O/P EST SF 10 MIN 07904-2.58 [id number] 724 Diagnos is: ICD-10- CM H35.30 Unspeci fied macular degener atalexandro RISHABH DAVENPORT 08/21 [facility] [address] [facility] OFFICE O/P EST MOD 30 MIN 17549-8.58 [id number].[id number] 992 Diagnos is: ICD-10- CM I10 Essenti al (primar y) hyperte nsion HENRIKAIN BEJARANO 08/[address] [facility] POSTOP FOLLOW-UP VISIT 38583-2.58 [id number] 682 Diagnos is: ICD-10- CM 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 BETTY BAXTER 08/27 [facility] Outpatient Encounter 51047-2.58 [id number] 946 JAMIE SEO 09/01 [facility] OFFICE O/P EST SF 10 MIN 27425-1.58 [id number] 008 Diagnos is: ICD-10- CM 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 SARAHI Salter 09/08 [facility] POSTOP FOLLOW-UP VISIT 97460-7.58 [id number] 247 Diagnos is: ICD-10- CM H25.13 Age-rel ated nuclear catarac t, bilater al BETTY BAXTER 09/15 [facility] HC PRO PHONE CALL 5-10 MIN 52511-8.58 [id number] 342 Diagnos is: ICD-10- CM Z71.9 Last Repairer ing, unspeci fied MERCEDES VALENZUELA 09/21 [facility] HC PRO PHONE CALL 5-10 MIN 15647-5.58 [id number] 762 Diagnos is: ICD-10- CM Z71.9 Last Repairer ing, unspeci aguilarMERCEDES Bravo 09/24 [facility] Outpatient Encounter 58933-8.58 [id number] 09/25 [facility] POSTOP FOLLOW-UP VISIT 85365-1.58 [id number] 850 Diagnos is: ICD-10- CM H25.13 Age-rel ated nuclear catarac t, bilater al MEHRDAD QUINTERO 09/25 [facility] Outpatient Encounter 54008-8.58 [id number] 811 Diagnos is: ICD-10- CM H28 Catarac t in disease s classif ied elsewhe GAVINO Hoyos THERobert 09/25 [facility] POSTOP FOLLOW-UP VISIT 69563-8.58 [id number] 167 Diagnos is: ICD-10- CM 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 SAHIL,QUIANASharri JACKSON 09/25 [facility] Outpatient Encounter 20929-5.58 [id number] 630 Diagnos is: ICD-10- CM H25.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, left eye Henri GARZON 09/25 [facility] XCAPSL CTRC RMVL CPLX WO ECP 86102-5.58 [id number] Manisha KENT 09/25 [facility] Outpatient Encounter 11893-7.58 [id number] MEHRDAD QUINTERO 09/25 [facility] POSTOP FOLLOW-UP VISIT 28689-1.58 [id number] 466 Diagnos is: ICD-10- CM 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 BETTY BAXTER 09/25 [facility] POSTOP FOLLOW-UP VISIT 61583-5.58 [id number] 265 Diagnos is: ICD-10- CM 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 MEHRDAD KING 10/01 [facility] OFF/OP EST MAY X REQ PHY/QHP 69726-5.58 [id number] 269 Diagnos is: ICD-10- CM 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 ALINA FAITH 10/22 [facility] Outpatient Encounter 27192-5.58 [id number] 10/29 [facility] INTRM OPH EXAM EST PATIENT 89122-2.58 [id number] 773 Diagnos is: ICD-10- CM H04.123 Dry eye syndrom e of bilater al lacrima l glands BETTY BAXTER 11/10 [facility] OFFICE O/P EST LOW 20 MIN 39385-8.58 [id number] 281 Diagnos is: ICD-10- CM 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 HELEN Allen 12/01 [facility] OFFICE O/P EST LOW 20 MIN 62294-9.58 [id number] 457 Diagnos is: ICD-10- CM H01.009 Unspeci fied blephar itis unspeci fied eye, unspeci fied eyelid BASSAM GONZALEZ 12/07 [facility] OFFICE O/P EST LOW 20 MIN 90585-3.58 [id number] 081 Diagnos is: ICD-10- CM 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 ME RAMA MOREAU 01/28 [facility] Outpatient Encounter 78991-1.58 [id number] 02/04 [facility] CASE MGMT-ORAL HEALTH LIT 23804-3.58 [id number] 159 Diagnos is: ICD-10- CM K03.6 Deposit s [accret ions] on teeth Julian BENNETT 02/10 [facility] DENTAL BITEWING FOUR IMAGES 31544-6.58 [id number] 348 Diagnos is: ICD-10- CM K02.52 Dental caries on pit and fissure surfc penetra t into dentin KANE RODRIGES 02/10 [facility] Outpatient Encounter 82313-0.58 [id number] 02/16 [facility] OFFICE O/P NEW MOD 45 MIN 71180-1.58 [id number] 274 Diagnos is: ICD-10- CM K14.8 Other disease s of tongue IVANA,MIKALA ADRIANA GRANT 02/16 [facility] IMMUNIZATI ON ADMIN 28412-5.58 [id number] 656 Diagnos is: ICD-10- CM Z23 Encount er for immuniz TIEN Iniguez 02/16 [facility] [address] [place] [facility] OFFICE O/P EST MOD 30 MIN 00210-1.58 [id number].[id number] 949 Diagnos is: ICD-10- CM I10 Essenti al (primar y) hyperte nsion HENRI,KAIN B HASAN 02/[address] [place] [facility] Outpatient Encounter 96168-4.58 [id number] 02/24 [facility] Outpatient Encounter 46477-4.58 [id number] 1 02/25 [facility] Outpatient Encounter 79575-7.58 [id number] 03/01 [facility] RE-EVAL,ES T PT,PROBLEM FOCUS 32321-7.58 [id number] 724 Diagnos is: ICD-10- CM K14.8 Other disease s of tongue MIKALA HEATH ADRIANA GRANT JR 03/02 [facility] [address] [facility] THER/PROPH /DIAG INJ SC/IM 59834-1.58 [id number].[id number] 225 Diagnos is: ICD-10- CM Z23 Encount er for immuniz atBEHZAD Saravia 03/[address] [facility] Outpatient Encounter 27947-2.58 [id number] 03/11 [facility] QNHP OL DIG ASSMT&MGMT 5-10 96886-2.58 [id number] 033 Diagnos is: ICD-10- CM K14.8 Other disease s of tongue WILLIAMS JASSO 03/11 [facility] Outpatient Encounter 68624-4.58 [id number] 03/12 [facility] BIOPSY OF ORAL TISSUE SOFT 22102-9.58 [id number] 723 Diagnos is: ICD-10- CM K14.8 Other disease s of tongue MIKALA HEATH ADRIANA GRANT JR 03/12 [facility] Outpatient Encounter 82102-8.58 [id number] 03/12 [facility] Outpatient Encounter 86999-6.58 [id number] JOANA HARRIS 03/17 [facility] Outpatient Encounter 27867-4.58 [id number] 03/19 [facility] RE-EVAL,ES T PT,POSTOP VISIT 93666-0.58 [id number] 896 Diagnos is: ICD-10- CM K14.8 Other disease s of tongue MIKALA HEATH ADRIANA GRANT JR 03/29 [facility] Outpatient Encounter 11433-6.58 [id number] 04/21 [facility] COMPRE OPH EXAM EST PT 1/> 18889-9.58 [id number] 950 Diagnos is: ICD-10- CM 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 ANDRSÉ MCHUGH 05/03 [facility] Outpatient Encounter 41958-1.58 [id number] 4 05/04 [facility] RE-EVAL,TONI T PT,PROBLEM FOCUS 08905-2.58 [id number] 758 Diagnos is: ICD-10- CM K14.8 Other disease s of tongue MIKALA HEATH PHILIPKIARA JUANITA HANSON 05/10 [facility] Outpatient Encounter 66394-9.58 [id number] 05/24 [facility] OFFICE O/P EST LOW 20 MIN 57700-3.58 [id number] 289 Diagnos is: ICD-10- CM I87.2 Venous insuffi ciency (chroni c) (periph eral) RONEY BUNCH 05/24 [facility] Outpatient Encounter 25673-8.58 [id number] 05/24 [facility] Outpatient Encounter 02749-7.58 [id number] JOANA HARRIS 05/28 [facility] [address] [place] [facility] IVNTJ INDIV 48345-5.58 [id number].[id number] 563 Diagnos is: ICD-10- CM Z76.89 [facility] s in oth circums tances AVILA-LESHEIDI NA,JAYASHREESharri GAUTAM 06/[address] [place] [facility] [address] [facility] OFFICE O/P EST HI 40 MIN 59630-9.58 [id number].[id number] 337 Diagnos is: ICD-10- CM I10 Essenti al (primar y) hyperte nsion HENRIKAIN BEJARANO HASAN 06/[address] [facility] [address] [facility] NUBHVL XM PHYS/QHP 1ST HR 12827-9.58 [id number].[id number] 896 Diagnos is: ICD-10- CM R41.9 Unsp symptom s and signs w cogniti ve functio ns and awarene ss BARRAGANIGNACIO VIJAYA 06/[address] [facility] Outpatient Encounter 60102-3.58 [id number] 06/22 [facility] Outpatient Encounter 88032-5.58 [id number] 066 07/26 [facility] Outpatient Encounter 71794-7.58 [id number] 4 07/28 [facility] TTE W/DOPPLER COMPLETE 18728-2.58 [id number] 613 Diagnos is: ICD-10- CM I35.1 Nonrheu matic aortic (valve) insuffi Shelbie Hill 07/29 [facility] OFFICE O/P EST LOW 20 MIN 70580-1.58 [id number] 735 Diagnos is: ICD-10- CM 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 ME RAMA MOREAU 07/29 [facility] Outpatient Encounter 49931-2.58 [id number] 07/29 [facility] Outpatient Encounter 57399-9.58 [id number] 07/30 [facility] Outpatient Encounter 59623-8.58 [id number] 08/05 [facility] RE-EVAL,ES T PT,PROBLEM FOCUS 08821-2.58 [id number] 361 Diagnos is: ICD-10- CM K14.8 Other disease s of tongue MIKALA HEATH JR 08/10 [facility] ORAL HYGIENE INSTRUCTIO N 80291-2.58 [id number] 410 Diagnos is: ICD-10- CM K03.6 Deposit s [accret ions] on teeth Julian BENNETT EONA JATINDER 08/11 [facility] Outpatient Encounter 46939-0.58 [id number] 08/27 [facility] Outpatient Encounter 25703-7.58 [id number] 109 08/27 [facility] CRITICAL CARE FIRST HOUR 52929-2.58 [id number] 144 Diagnos is: ICD-10- CM I47.20 Ventric ular tachyca rdia, unspeci fied CRISP,HARPAL THAN ADELAIDE 08/27 [facility] Insertion of Defibrilla tor Lead into R Atrium, Perc Approach 22998-8.58 [id number] 603 Admit Reason: VTACH, CHEST PAIN MAHBOOB,MU DDASSAR 08/27 Discharge from inpatient treatment to the [facility] (OPT-SC) rolls. [facility] Inpatient Encounter 44081-5.58 [id number] 730 08/27 [facility] Inpatient Encounter 54713-6.58 [id number] 623 08/27 [facility] Inpatient Encounter 45536-9.58 [id number] 487 08/27 [facility] Inpatient Encounter 14760-4.58 [id number] 260 ROSA ISELA SOLOMON 08/27 [facility] Inpatient Encounter 29145-9.58 [id number] 872 ROSA ISELA SOLOMON ERON 08/27 [facility] Inpatient Encounter 33693-0.58 [id number] 384 ROSA ISELA SOLOMON ERON 08/27 [facility] INJ SULF [place] LIPID MICROSPH 13059-8.58 9A4.968995 494 Diagnos is: ICD-10- CM 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 RADHIKA DUPONT STEVE 08/27 [facility] Inpatient Encounter 95080-4.58 [id number] 390 DAKOTA HINES 08/27 [facility] OCCLUSIVE DEVICE IN VEIN ART 16618-8.58 9A4.120260 595 Diagnos is: ICD-10- CM I47.20 Ventric ular tachyca rdia, unspeci aguilared HENRIK MASON 08/27 [facility] Inpatient Encounter 07131-6.58 [id number] 08/27 [facility] Inpatient Encounter 09360-4.58 [id number] 125 LARRY BARRIOS 08/27 [facility] Inpatient Encounter 36122-0.58 [id number] 411 08/27 [facility] Inpatient Encounter 94099-5.58 [id number] 695 EVETTE CORADO 08/27 [facility] Inpatient Encounter 14768-7.58 9A4.514741 367 08/27 [facility] Inpatient Encounter 70683-6.58 [id number] 238 Khris GASCA 08/27 [facility] Inpatient Encounter 58030-6.58 9A4.256088 139 08/27 [facility] Inpatient Encounter 43269-3.58 [id number] 785 08/28 [facility] Inpatient Encounter 50754-9.58 [id number] 829 08/28 [facility] Inpatient Encounter 65714-1.58 [id number] 037 08/29 [facility] Inpatient Encounter 65078-2.58 [id number] 817 Khris GASCA 08/29 [facility] Inpatient Encounter 56695-9.58 [id number] 633 JEANNA OAKES 08/29 [facility] Inpatient Encounter 14746-5.58 [id number] 071 08/29 [facility] Inpatient Encounter 74839-3.58 [id number] Khris GASCA 08/29 [facility] Inpatient Encounter [id number] 08/30 [facility] Inpatient Encounter [id number] EVETTE CORADO 08/30 [facility] Inpatient Encounter [id number] EVON ROGERS SH 08/30 [facility] INJ SULF [place] LIPID MICROSPH [id number] Diagnos is: ICD-10- CM 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 Lynette AMIN 08/30 [facility] Inpatient Encounter [id number] 192 08/31 [facility] Inpatient Encounter [id number] 594 Khris GASCA 08/31 [facility] Inpatient Encounter [id number] 08/31 [facility] Inpatient Encounter [id number] 08/31 [facility] RESIDENTIAL INTERIOR DES[employer]ER [employer] MEMBER INDIVIDU [id number] Diagnos is: ICD-10- CM Z71.81 Spiritu al or religio us admissions counselor ALMA Figueroa II 08/31 [facility] LOCM 300-399MG/ ML IODINE,1ML [id number] Diagnos is: ICD-10- CM I42.9 Cardiom yopathy , unspeci DEENA Syed MD 08/31 [facility] Inpatient Encounter [id number] 604 SELLJASSON Pinedo 08/315 [facility] Inpatient Encounter [id number] Khris GASCA EMI RIVERA 08/31 [facility] Inpatient Encounter [id number] 08/31 [facility] Inpatient Encounter [id number] 09/01 [facility] Inpatient Encounter [id number] 09/01 [facility] Inpatient Encounter [id number] KRYSTLE,JASSON Y LUCIA 09/01 [facility] Inpatient Encounter [id number] 136 09/01 [facility] MTMS BY [employer] SPECIALIST 15 MIN [id number] Diagnos is: ICD-10- CM 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 LEELABIN GALLARDO 09/01 [facility] Inpatient Encounter [id number] 09/01 [facility] Inpatient Encounter [id number] KRYSTLE,MOLL Y LUCIA 09/01 [facility] [address] [facility] PH1 ASSMT&MGMT NQHP 5-10 [id number] Diagnos is: ICD-10- CM I47.20 Ventric ular tachyca rdia, unspeci fiPERCY Alexander 09/[address] [facility] OFF/OP EST OCTOBER X REQ PHY/QHP [id number] Diagnos is: ICD-10- CM I47.20 Ventric ular tachyca rdia, unspeci fiPRADEEP Quarles 09/13 [facility] Outpatient Encounter [id number] CASEYROYAL 09/13 [facility] Outpatient Encounter [id number] ARTIMITCHELL ROYCE Jordan 09/17 [facility] Outpatient Encounter [id number] MONA ORTEGA 09/20 [facility] Outpatient Encounter [id number] 09/20 [facility] Outpatient Encounter [id number] 09/21 [facility] Outpatient Encounter [id number] 09/22 [facility] Procedures Combined list of: 1) Procedures from Department of Veterans Affairs facilities going back up to thelast 18 months, not all [place] non-surgical procedures are included; 2) All procedures from the Department of Defense facilities. Procedure Procedure Type Code Date Perfomer Comments Sourc e FITTING OF SPECTACLES, EXCEPT FOR APHAKIA; BIFOCAL 2017 DoD DETERMINATION OF REFRACTIVE STATE 2016 DoD DETERMINATION OF REFRACTIVE STATE 2015 DoD FITTING OF SPECTACLES, EXCEPT FOR APHAKIA; BIFOCAL 2013 DoD DETERMINATION OF REFRACTIVE STATE 2012 DoD DETERMINATION OF REFRACTIVE STATE 2011 DoD INFLUENZA VIRUS VACCINE, PANDEMIC FORMULATION, H1N1 2008 DoD INFLUENZA VIRUS VACCINE, TRIVALENT (IIV3), SPLIT VIRUS, 0.5 ML DOSAGE, FOR INTRAMUSCULAR USE 2008 DoD DETERMINATION OF REFRACTIVE STATE 2008 DoD ZOSTER (SHINGLES) VACCINE (HZV), LIVE, FOR SUBCUTANEOUS INJECTION 2007 [facility] DESTRUCT (EG, LASER SURGERY, ELECTROSURGERY, CRYOSURGERY, CHEMOSURGERY, SURGICAL CURETTEMENT), PREMALIGNANT LESIONS (EG, ACTINIC KERATOSES); 2ND THRU 14 LESIONS, EA (LIST SEP ADDITION CD, 1ST LESION) 2006 [facility] SHAVING OF EPIDERMAL OR DERMAL LESION, SINGLE LESION, TRUNK, ARMS OR LEGS; LESION DIAMETER 0.6 TO 1.0 CM 2006 [facility] VISUAL FIELD EXAMINATION, UNI OR BILATERAL, WITH MEDICAL DIAGNOSTIC EVAL; LIMITED EXAM (EG, TANGENT SCREEN, AUTOPLOT, ARC PERIMETER, OR SINGLE STIMULUS LEVEL AUTO TEST, EG OCTOPUS 3 OR 7 EQUIVALENT) 2006 [facility] DETERMINATION OF REFRACTIVE STATE 2006 [facility] NONINVASIVE EAR OR PULSE OXIMETRY FOR OXYGEN SATURATION; SINGLE DETERMINATION 2005 [facility] ARTHROCENTESIS, ASPIRATION AND/OR INJECTION, SMALL JOINT OR BURSA (EG, FINGERS, TOES); WITHOUT ULTRASOUND GUIDANCE 2005 [facility] ARTHROCENTESIS, ASPIRATION AND/OR INJECTION, SMALL JOINT OR BURSA (EG, FINGERS, TOES); WITHOUT ULTRASOUND GUIDANCE 2005 DoD INTRODUCTION OF NEEDLE OR INTRACATHETER, VEIN 2005 [facility] COLLECTION OF VENOUS BLOOD BY VENIPUNCTURE 2004 [facility] TETANUS AND DIPHTHERIA TOXOIDS (TD) ADSORBED WHEN ADMINISTERED TO INDIVIDUALS 7 YEARS OR OLDER, FOR INTRAMUSCULAR USE 2004 [facility] NONINVASIVE EAR OR PULSE OXIMETRY FOR OXYGEN SATURATION; SINGLE DETERMINATION 2003 [facility] INFLUENZA VIRUS VACCINE, TRIVALENT (IIV3), SPLIT VIRUS, 0.5 ML DOSAGE, FOR INTRAMUSCULAR USE 2002 [facility] INFLUENZA VIRUS VACCINE, TRIVALENT (IIV3), SPLIT VIRUS, 0.5 ML DOSAGE, FOR INTRAMUSCULAR USE 2001 [facility] [employer] Fitting Bifocals (Not For Aphakia) [employer] Fitting Bifocals (Not For Aphakia) 90092 2017 RADHA PAZ [facility] Determination Of Refractive State Determination Of Refractive State 74670 2017 RADHA PAZ [facility] Ophthalmological Prior Patient Start Comprehensive Care Ophthalmological Prior Patient Start Comprehensive Care [id number] 2017 RADHA PAZ [facility] Determination Of Refractive State Determination Of Refractive State 27916 2016 RADHA PAZ [employer] Fitting Bifocals (Not For Aphakia) [employer] Fitting Bifocals (Not For Aphakia) 37657 2016 RADHA PAZ Ophthalmological Prior Patient Start Comprehensive Care Ophthalmological Prior Patient Start Comprehensive Care 75053 2016 RADHA PAZ Determination Of Refractive State Determination Of Refractive State 55029 2015PEDRO Ophthalmological Prior Patient Start Comprehensive Care Ophthalmological Prior Patient Start Comprehensive Care 13105 2015PEDRO [employer] Fitting Bifocals (Not For Aphakia) [employer] Fitting Bifocals (Not For Aphakia) 68660 2013 SARAHI MAGALLON Determination Of Refractive State Determination Of Refractive State 31027 2013 SARAHI MAGALLON Ophthalmological Prior Patient Start Comprehensive Care Ophthalmological Prior Patient Start Comprehensive Care 84667 2013 SARAHI MAGALLON Determination Of Refractive State Determination Of Refractive State 26576 2012, PEDRO Chen Ophthalmological Prior Patient Start Comprehensive Care Ophthalmological Prior Patient Start Comprehensive Care 05653 2012PEDRO Determination Of Refractive State Determination Of Refractive State 39461 2011PEDRO [employer] Fitting Bifocals (Not For Aphakia) [employer] Fitting Bifocals (Not For Aphakia) 88109 2011PEDRO Ophthalmological Prior Patient Start Comprehensive Care Ophthalmological Prior Patient Start Comprehensive Care 77072 2011PEDRO Influenza Virus Vaccine Pandemic Formulation 2008 REGINA FISHMAN Immunization Administration One Vaccine Immunization Administration One Vaccine 55329 2008 REGINA FISHMAN Influenza Split Virus Vaccine Age 3+ Years Intramuscular 2008 REGINA FISHMAN Immunization Administration One Vaccine Immunization Administration One Vaccine 06927 2008 REGINA FISHMAN Determination Of Refractive State Determination Of Refractive State 82672 2008 KAYLYNN PERDOMO Ophthalmological New Patient Start Comprehensive Care Ophthalmological New Patient Start Comprehensive Care 56232 2008 KAYLYNN PERDOMO Zoster Vaccine, Live Zoster Vaccine, Live 49923 2007 RAY BERGERON Immunization Administration One Vaccine Immunization Administration One Vaccine 55241 2007 RAY BERGERON Destruct Of Premalignant Lesion By Any Method 2nd Through 14 2006 ROLANDO BENZ Destruction Of Premalignant Lesion By Any Method One Lesion 2006 ROLANDO BENZ Shaving Of Lesion Shoulders .6 to 1cm Shaving Of Lesion Shoulders .6 to 1cm 20488 2006 ROLANDO BENZ Destruction Of Benign Lesion By Any Method 15 Or More Lesion 2006 ROLANDO BENZ Destruction Of Premalignant Lesion By Any Method 15 Or More 2006 ROLANDO BENZ Visual Stoll Test Limited Examination Visual Stoll Test Limited Examination 32216 2006 MAGALYS BAEZ Fundus Photography Fundus Photography 01635 2006 MAGALYS BAEZ Ophthalmological Prior Patient Start Intermediate Level Care Ophthalmological Prior Patient Start Intermediate Level Care 73850 2006 MAGALYS BAEZ Determination Of Refractive State Determination Of Refractive State 66402 2006 MAGALYS BAEZ Ophthalmological New Patient Start Comprehensive Care Ophthalmological New Patient Start Comprehensive Care 24460 2006 MAGALYS BAEZ Corticosteroids Injection Intrabursal Corticosteroids Injection Intrabursal 2005 ALIDA PAZ Corticosteroids Injection Intrabursal Corticosteroids Injection Intrabursal 2005 IMELDA KIRBY No data available for this section Ambulatory Pharmacy PHACOEMULSIFICATION & ASPIRATION / [facility] 20409 2023 GERHARD BAXTER RA [facility] RIGHT PHACOEMULSIFICATION AND ASPIRATION XCAPSL [facility] RMVL W/O ECP 16333 2023 GERHARD BAXTER RA Other Procedure CPT Code(s): GR-SERVICE BY [facility] RESIDENT, RT-RIGHT SIDE [facility] Social History Combined list of available smoking, tobacco, and other social history from Department of Defense and Veterans Affairs facilities. Social History Type Response Date Comment [facility] Tobacco smoking status NHIS VA-TOBACCO USE FORMER CIGARETTES 06/21/2024 [facility] History of tobacco use VA-TOBACCO NEVER USED OTHER TYPE 06/21/2024 [facility] History of tobacco use VA-TOBACCO FORMER USER 04/30/2023 [facility] History of tobacco use VA-TOBACCO FORMER USER 04/04/2022 [facility] History of tobacco use INPT TOBACCO SCREENED NEGATIVE 07/18/2021 [facility] History of tobacco use INPT TOBACCO SCREENED NEGATIVE 04/27/2021 [facility] History of tobacco use INPT TOBACCO SCREENED NEGATIVE 10/31/2020 [facility] History of tobacco use INPT TOBACCO SCREENED NEGATIVE 10/08/2020 [facility] History of tobacco use VA-TOBACCO FORMER USER 10/07/2020 [facility] History of tobacco use INPT TOBACCO SCREENED NEGATIVE 09/30/2020 [facility] History of tobacco use VA-TOBACCO NEVER USED 09/29/2020 [facility] Sex Representation Male (finding) 07/24/2020 Un known Organization History of tobacco use VA-TOBACCO FORMER USER 01/17/2020 [facility] This section is an empty social history section. DoD Sexual Orientation Ambula tory Pharmacy Gender identity Ambulator y Pharmacy Assessment and Plan Combined list of future care activities from Department of Defense and Veterans Affairs facilities (e.g., assessment and plan notes, appointments, orders, and referrals). Additional future care activities may be listed in the Plan of Care section. Result Assessment and Plan Date Source Assessment and Plan No data available for this section 09/25/2024 Ambulatory Pharmacy Plan of Care List of future care activities from Department of Veterans Affairs facilities. Additional future care activities may be listed in the Assessment and Plan section. Date/Time Care Activity Care Activity Detail Facili ty 10/08/2024 AMBULATORY - MEDICINE AMBULATORY - MEDICI NE [facility] Advance Directives List of completed, amended, or rescinded Advance Directives on record at [facility] of [facility] Affairs facilities. An actual copy of the Directive is not included. Date Advance Directive Provider Source 10/22/2022 ADVANCE DIRECTIVE DISCUSSION ARGELIA CHAVEZ [facility] 04/04/2022 ADVANCE DIRECTIVE DISCUSSION RAY ROQUE [facility] 09/30/2020 ADVANCE DIRECTIVE DISCUSSION ILYA BROWN [facility] 07/26/2020 ADVANCE DIRECTIVE DISCUSSION FABY TAMEZ [facility] 04/17/2020 ADVANCE DIRECTIVE DISCUSSION LINETTE RAMIREZ [facility] 01/17/2020 ADVANCE DIRECTIVE DISCUSSION ASHLEY,DA DIANA MCKEON [facility], [place] 02/24/2009 ADVANCE DIRECTIVE HECTOR GUPTA [facility] Functional Status Combined list of recent functional and cognitive assessments recorded at Department of Defense and [facility] ([place] Functional [place] Measurement (FIM) Scale: 1 = Total Assistance (Subject = 0% +), 2 = Maximal Assistance (Subject = 25% +), 3 = Moderate Assistance (Subject = 50% +), 4 = Minimal Assistance (Subject = 75% +), 5 = Supervision, 6 = Modified [place] (Device), 7 = Complete [place] (Timely, Safely). Assessment Date/Time Source Assessment Type Assessment Skill Assessment Score Assessment Details No data available for this section
--- OUTSIDE RECORDS SUMMARY | 2024-09-25 16:06 | XMS_ITS | Encounter Summary ---
Author Name [facility] [place] [facility] [place] [place] [facility] [place] Address [address] [place] [address] Care Team Providers Care Softball Core Molder Name Role Phone ABIGAIL ÁLVAREZ Primary Care [...] PART A Feb 07, 2007 PART A [id number] [phone] ALIYAH MANDEL PATIENT MEDICARE (WNR) MEDICARE (M) PART A Feb 07, 2007 PART A [id number] [phone] TEQUILA ALIYAH PATIENT Selected Encounter This section includes the information on record at [place] for the Encounter. Date/Time Encounter Type Encounter [...] 20 appointments. The data comes from all [facility]. Appointment Date/Time Appointment Type Appointme nt Facility Name Sep 02, 2024 01:00 PM AMBULATORY - NONE [facility] Sep 13, 2024 02:00 PM AMBULATORY - MEDICINE [facility] October 08, 2024 10:30 AM AMBULATORY - MEDICINE [facility] October 12, 2024 09:00 AM AMBULATORY - NONE [facility] October 12, 2024 10:00 AM [facility]ORY - NONE [facility] October 25, 2024 02:00 PM AM[facility]ULATORY - SURGERY [facility] Nov 15, 2024 02:00 PM [facility] - [facility]ICINE [facility] Dec 13, 2024 10:00 AM AMBULATORY - MEDICINE [facility] Dec 21, 2024 10:30 AM AMBULATORY - MEDICINE [facility] Feb 15, 2025 10:00 AM AMBULATORY - MEDICINE [facility] Feb 15, 2025 11:00 AM AMBULATORY - NONE [facility] Active, Pending, and Scheduled Orders This section includes a listing of several types of active, pending, and scheduled orders, including clinic medications orders, diagnostic test orders, procedure orders and consult orders; where the start date of the order is 45 days before the date of the Encounter or 45 days after the date of theEncounter. The data comes from all [facility]. Test Date/Time Test Type Test Details Facility Name Jul 29, 2024 02:19 PM Procedure Order CP CO-ECHO FUTURE CARE (NH) CP CO-ECHO FUTURE CARE-[id number] Proc Post Adoption Coordinator's Choice [facility] Jul 29, 2024 02:19 PM Procedure Order EKG OUTPAT IENT-CO EKG Needed on: Jul Urgency: ROUTINE Diagnosis/Reason: Ischemia (125.9) [facility] Aug 31, 2024 12:48 AM Laboratory - Blood Bank Order TYPE & SCREEN - LAB BLOOD,PINK/PURPLE (7-9ML) WC [facility] Lab Results: +/- 30 days of the encounter This section includes the Chemistry and Hematology Lab Results on record with [place] for the patient. Radiology Reports and Pathology Reports are provided separately, in subsequent sections. Lab Results This section contains the Chemistry/Hematology Results that were resulted 30 days before or 30 daysafter the date of the Encounter. Date/Time Source Result Type Result - Unit Interpretation Reference Range Specimen Type Comment Sep 01, 2024 03:14 AM [facility] MAGNESIUM (mg/dL) PLASMA Specimen Type: PLASMA No comment entered. Ordering Provider: LEEROY HUGHES Report Released Date/Time: Aug 31, 2024 09:28 AM Reporting Lab: [address] [phone] Performing Lab: [address] [phone] MAGNESIUM (mg/dL) 2.1 mg/dL 1.6-2.6 Sep 01, 2024 03:14 AM [facility] COMPREHENSIVE METABOLIC PANEL PLASMA Specimen Type: PLASMA No comment entered. Ordering Provider: LEEROY HUGHES Report Released Date/Time: Aug 31, 2024 09:28 AM Reporting Lab: [address] [phone] Performing Lab: [address] [phone] *CREATININE 1.12 mg/dL 0.70-1.30 UREA NITROGEN mg/dL [...] 2020) 66 Sep 01, 2024 03:14 AM [facility] CBC & DIFF BLOOD Specimen Type: BLOOD No comment entered. Ordering Provider: LEEROY HUGHES Report Released Date/Time: Aug 31, 2024 09:28 AM Reporting Lab: [address] [address] Performing Lab: [address] WBC 15.00 10*3/uL H 3.6-11.2 RBC [...] % 0.6 Aug 31, 2024 05:45 AM [facility] ANTI-Xa ([place]) BLOOD Specimen Type: BLOOD Comment: Critical Values: Unfractionated Heparin: > 1.0 IU/mL For Low Molecular Weight Heparin reference ranges contact lab. Ordering Provider: LARRY BARRIOS Report Released Date/Time: Aug 27, 2024 12:18 PM Reporting Lab: [address] Performing Lab: [address] ANTI-Xa (CO) <0.04 [IU]/mL 0.3-0.7 Aug 31, 2024 05:45 AM [facility] MAGNESIUM (mg/dL) PLASMA Specimen Ty pe: PLASMA No comment entered. Ordering Provider: LEEROY HUGHES Report Released Date/Time: Aug 30, 2024 11:25 AM Reporting Lab: [address] [address] Performing Lab: [address] [address] MAGNESIUM (mg/dL) 2.2 mg/dL 1.6-2.6 Aug 31, 2024 05:45 AM [facility] COMPREHENSIVE METABOLIC PANEL PLASMA Specimen Type: PLASMA No comment entered. Ordering Provider: LEEROY HUGHES Report Released Date/Time: Aug 30, 2024 11:25 AM Reporting Lab: [address] Performing Lab: [address] *CREATININE 1.04 mg/dL 0.70-1.30 UREA NITROGEN [...] 2020) 72 Aug 31, 2024 05:45 AM [facility] CBC & DIFF BLOOD Specimen Type: BLOOD No comment entered. Ordering Provider: LEEROY HUGHES Report Released Date/Time: Aug 30, 2024 11:25 AM Reporting Lab: [address] [phone] Performing Lab: [address] [address] WBC 9.50 10*3/uL 3.6-11.2 RBC 4.12 10*6/uL [...] % 0.7 Aug 30, 2024 04:23 AM [facility] CMP-NONFASTING ([place]) PLASMA Specimen Type: PLASMA No comment entered. Ordering Provider: LARRY BARRIOS Report Released Date/Time: Aug 29, 2024 12:07 PM Reporting Lab: [address] [address] Performing Lab: [address] [address] *CREATININE 1.10 mg/dL 0.70-1.30 UREA NITROGEN mg/dL [...] 2020) 67 Aug 30, 2024 04:23 AM [facility] CBC & DIFF BLOOD Specimen Type: BLOOD No comment entered. Ordering Provider: LARRY BARRIOS Report Released Date/Time: Aug 29, 2024 12:07 PM Reporting Lab: [address] [address] Performing Lab: [address] [address] WBC 8.80 10*3/uL 3.6-11.2 RBC 3.99 10*6/uL [...] % 0.9 Aug 29, 2024 04:23 AM [facility] CMP-NONFASTING (CO) PLASMA Specimen Type: PLASMA No comment entered. Ordering Provider: LARRY BARRIOS Report Released Date/Time: Aug 28, 2024 10:54 AM Reporting Lab: [address] [address] Performing Lab: [address] [address] *CREATININE 1.04 mg/dL 0.70-1.30 UREA NITROGEN mg/dL [...] 2020) 72 Aug 29, 2024 04:23 AM [facility] CBC & DIFF BLOOD Specimen Type: BLOOD No comment entered. Ordering Provider: LARRY BARRIOS Report Released Date/Time: Aug 28, 2024 10:54 AM Reporting Lab: [facility] [address] [facility] [address] Performing Lab: [address] [address] WBC 8.50 10*3/uL 3.6-11.2 RBC 4.28 10*6/uL [...] % 0.6 Aug 28, 2024 04:50 AM [facility] T4 FREE SERUM Specimen Type: SERUM No comment entered. Ordering Provider: LARRY BARRIOS Report Released Date/Time: Aug 27, 2024 03:47 PM Reporting Lab: [place] [phone] Performing Lab: [place] [phone] T4 FREE 0.8 ng/dL 0.7-1.48 Aug 28, 2024 04:50 AM [facility] TSH SERUM Specimen Type: SERUM No comment entered. Ordering Provider: LARRY BARRIOS Report Released Date/Time: Aug 27, 2024 03:47 PM Reporting Lab: [address] [address] Performing Lab: [place] [phone] *TSH 1.66 u[IU]/mL 0.47-5.00 Aug 28, 2024 04:50 AM [facility] CMP-NONFASTING (CO) PLASMA Specimen Type: PLASMA No comment entered. Ordering Provider: LUIS YANES Report Released Date/Time: Aug 28, 2024 03:03 AM Reporting Lab: [address] [address] Performing Lab: [place] [phone] *CREATININE 0.87 mg/dL 0.70-1.30 UREA NITROGEN mg/dL [...] 2020) 86 Aug 28, 2024 04:50 AM [facility] CBC & DIFF BLOOD Specimen Type: BLOOD No comment entered. Ordering Provider: LUIS YANES Report Released Date/Time: Aug 28, 2024 03:03 AM Reporting Lab: [address] [address] Performing Lab: [address] [address] WBC 9.20 10*3/uL 3.6-11.2 RBC 4.23 10*6/uL [...] % 0.5 Aug 27, 2024 02:14 PM [facility] ACT.CLOTTING TIME BLOOD Specimen Ty pe: BLOOD No comment entered. Ordering Provider: JEROME DOTY Report Released Date/Time: Aug 27, 2024 02:44 PM Reporting Lab: [address] [address] Performing Lab: [address] [address] ACT.CLOTTING TIME 153 s H 74-137 Aug 27, 2024 11:30 AM [facility] hsTROP-CO PLASMA Specimen Type: PLASMA Comment: TROP-T-HS Called to: Velvet Bartlett RN at: 1213 on: 08/27/24 by: Jasvir Cunningham Result read back to comply with Joint Commission Ordering Provider: LARRY BARRIOS Report Released Date/Time: Aug 27, 2024 09:20 AM Reporting Lab: [address] Performing Lab: [place] [phone] hsTROP-CO 1017 HH See Interpretation Aug 27, 2024 08:55 AM [facility] MRSA SURVL NARES DNA NARES Specimen Type: NARES No comment entered. Ordering Provider: JEROME DOTY Report Released Date/Time: Aug 27, 2024 08:46 AM Reporting Lab: [address] Performing Lab: [place] [phone] MRSA SURVL NARES DNA Negative Negative Aug 27, 2024 08:20 AM [facility] URINALYSIS (ZOILA,WI,CO,EK) URINE Spec imen Type: URINE Comment: Microscopic not indicated Ordering Provider: RYAN HALL Report Released Date/Time: Aug 27, 2024 06:51 AM Reporting Lab: [address] Performing Lab: [address] *URINE COLOR Light-Yellow *URINE APPEARANCE Clear Clear *URINE PROTEIN Negative mg/dL Negative-T race *URINE LEUKOCYTE Negative Negative *URINE NITRITE Negative Negative *URINE BLOOD Negative Negative *URINE GLUCOSE Negative mg/dL Negative *URINE KETONES Negative mg/dL Negative *URINE PH 7.0 5.0-8.0 *URINE SPECIFIC GRAVITY 1.011 1.005-1. 030 *URINE BILIRUBIN Negative Negative *URINE UROBILINOGEN Normal mg/dL Normal Aug 27, 2024 06:40 AM [facility] PT/INR PLASMA Specimen Type: PLASMA No comment entered. Ordering Provider: RYAN HALL Report Released Date/Time: Aug 27, 2024 06:51 AM Reporting Lab: [address] Performing Lab: [place] [phone] *INR 1.0 {INR} *PT 11.4 s 9.4-12.5 Aug 27, 2024 06:40 AM [facility] COMPREHENSIVE METABOLIC PANEL PLASMA Specimen Type: PLASMA No comment entered. Ordering Provider: RYAN HALL Report Released Date/Time: Aug 27, 2024 06:51 AM Reporting Lab: [address] [address] Performing Lab: [address] [address] *CREATININE 1.14 mg/dL 0.70-1.30 UREA NITROGEN mg/dL [...] 2020) 64 Aug 27, 2024 06:40 AM [facility] APTT PLASMA Specimen Type: PLASMA No comment entered. Ordering Provider: RYAN HALL Report Released Date/Time: Aug 27, 2024 06:51 AM Reporting Lab: [address] [phone] Performing Lab: [place] [phone] APTT 29.8 s 26.7-39.9 Aug 27, 2024 06:40 AM [facility] hsTROP-CO PLASMA Specimen Type: PLASMA No comment entered. Ordering Provider: RYAN HALL Report Released Date/Time: Aug 27, 2024 06:51 AM Reporting Lab: [address] [address] Performing Lab: [address] [address] hsTROP-CO 15 See Interpretation Aug 27, 2024 06:40 AM [facility] ANTI-Xa ([place]) BLOOD Specimen Type: BLOOD Comment: Critical Values: Unfractionated Heparin: > 1.0 IU/mL For Low Molecular Weight Heparin reference ranges contact lab. Ordering Provider: RYAN HALL Report Released Date/Time: Aug 27, 2024 07:24 AM Reporting Lab: [place] [phone] Performing Lab: [place] [phone] ANTI-Xa (CO) <0.04 [IU]/mL 0.3-0.7 Aug 27, 2024 06:40 AM [facility] NTproBNP ([place]) PLASMA Specimen Typ e: PLASMA No comment entered. Ordering Provider: RYAN HALL Report Released Date/Time: Aug 27, 2024 06:51 AM Reporting Lab: [place] [phone] Performing Lab: [place] [phone] NTproBNP ([place]) 410 pg/mL -See Interpre tation Aug 27, 2024 06:40 AM [facility] CBC & DIFF BLOOD Specimen Type: BLOOD No comment entered. Ordering Provider: RYAN HALL Report Released Date/Time: Aug 27, 2024 06:51 AM Reporting Lab: [place] [phone] Performing Lab: [place] [phone] WBC 15.70 10*3/uL H 3.6-11.2 RBC 4.80 [...] 0.00 -0.20 Aug 27, 2024 06:40 AM [facility] PATHOLOGIST REVIEW BLOOD Specimen T ype: BLOOD Comment: Reviewed by Dr. Chepe Yu: Reactive Lymphocytes. Ordering Provider: RYAN HALL Report Released Date/Time: Aug 27, 2024 06:51 AM Reporting Lab: [address] [address] Performing Lab: [address] [address] PATHOLOGIST REVIEW comment Vital Signs: All taken on the encounter date This section contains inpatient and outpatient Vital Signs collected on the date of the Encounter. Date/Time Temperature Pulse Blood Pressure Respiratory Rate SP02 Pain Height Weight Body Mass Index Source Aug 27, 2024 08:00 PM 97.7 51 138/67 16 95 0 [facility] Aug 27, 2024 08:30 AM 65 138/79 21 98 0 [facility] Aug 27, 2024 08:30 AM 96.8 68 135/74 21 97 0 195.99 31 [facility] Aug 27, 2024 08:19 AM 98.6 0 [facility] Aug 27, 2024 08:15 AM 74 135/71 18 99 [facility] Social History: Smoking Status (Most current) and Tobacco Use (All prior to encounter date) This section includes the most current, and the historical, smoking and tobacco- related health factors from the [place] facility where the Encounter took place. Current Smoking Status This section includes the most current smoking, or tobacco-related health factor, from the [place] facility where the Encounter took place. Date/Time Current Smoking Status Comment [place] ity Apr 30, 2023 01:00 PM [place]-TOBACCO FORMER USER [facility] Tobacco Use History This section includes a history of the smoking, or tobacco-related health factors, that were collected on or before the date of the Encounter. The data comes from the [place] facility where the Encounter took place. Date/Time Smoking Status/Tobacco Use Comment F acility Apr 30, 2023 01:00 PM [place]-TOBACCO QUIT 15 YRS OR MORE [facility] Apr 04, 2022 09:15 AM [place]-TOBACCO FORMER USER [facility] Apr 04, 2022 09:15 AM [place]-TOBACCO QUIT 15 YRS OR MORE [facility] Jul 18, 2021 10:13 AM INPT TOBACCO SCREENED NEGATIVE [facility] Apr 27, 2021 07:00 AM INPT TOBACCO SCREENED NEGATIVE [facility] October 31, 2020 02:30 PM INPT TOBACCO SCREENED NEGATIVE [facility] October 08, 2020 10:22 AM INPT TOBACCO SCREENED NEGATIVE [facility] October 07, 2020 07:22 AM VA-TOBACCO FORMER USER [facility] Sep 30, 2020 11:06 AM INPT TOBACCO SCREENED NEGATIVE [facility] Sep 29, 2020 04:05 PM VA-TOBACCO NEVER USED [facility] Jan 17, 2020 10:21 AM VA-TOBACCO FORMER USER [facility] Jan 17, 2020 10:21 AM VA-TOBACCO QUIT 15 YRS OR MORE [facility] Advance Directives: All historical and current Section Date Range: From patient's date of to the date document was created. This section includes ALL of a patient's completed or amended [place] Advance and Rescinded Directives. The entries below indicate that a directive exists for the patient, but an actual copy is not included with this document. The data comes from all [place] facilities. Date Advance Directives Provider Source October 22, 2022 ADVANCE DIRECTIVE DISCUSSION ARGELIA CHAVEZ [facility] Apr 04, 2022 ADVANCE DIRECTIVE DISCUSSION RAY RQOUE [facility] Sep 30, 2020 ADVANCE DIRECTIVE DISCUSSION ILYA BROWN [facility] Jul 26, 2020 ADVANCE DIRECTIVE DISCUSSION FABY TAMEZ [facility] Apr 17, 2020 ADVANCE DIRECTIVE DISCUSSION LINETTE RAMIREZ [facility] Jan 17, 2020 ADVANCE DIRECTIVE DISCUSSION LINETTE RAMIREZ [facility] Feb 24, 2009 [facility] Radiology Reports: +/- 30 days of the [...] the Encounter. The data comes from all [place] treatment facilities. Date/Time Radiology Report Provider Source Sep 01, 2024 06:18 AM CHEST 2 VIEWS: ALIYAH MANDEL [id number] -1940 M Exm Date: SEP 01, 2024@06:18 Req Phys: TERRELL GUO Loc: ICU PCU MED-CO/09-01-2024@07:2 Img Loc: CO-GENERAL ENGINEERING TEACHER Service: [facility] [place] [address] (Case [id number] COMPLETE) CHEST 2 VIEWS (RAD Detailed) CPT:04870 Reason for Study: Assess pulmonary status S/P Pacemaker/AICD implant Clinical History: Morning after procedure DO NOT raise left arm above shoulder level. Report Status: Verified Date Reported: SEP 01, 2024 Date Verified: SEP 01, 2024 Bottoming Machine Operator E-Sig:/ES/Aubrie Garcia MD PhD Report: History: Pacemaker [...] Aubrie Garcia MD PhD, CHIEF, CLINICAL SUPPORT (Bottoming Machine Operator) /MDT AUBRIE GARCIA [facility] Aug 31, 2024 04:27 PM CHEST 1 VIEW: ALIYAH MANDEL [id number] -1940 M Exm Date: AUG 31, 2024@16:27 Req Phys: TERRELL GUO Loc: ICU PCU MED-CO/09-01-2024@07:2 Img Loc: CO-GENERAL ENGINEERING TEACHER [facility] [address] (Case [id number] COMPLETE) CHEST 1 VIEW (RAD Detailed) CPT:14808 Proc Modifiers : PORTABLE Reason for Study: s/p pacemaker Clinical History: Report Status: Verified Date Reported: SEP 01, 2024 Date Verified: SEP 01, 2024 Bottoming Machine Operator E-Sig:/ES/Aubrie Garcia MD PhD Report: History: Pacemaker [...] Aubrie Garcia MD PhD, CHIEF, CLINICAL SUPPORT (Bottoming Machine Operator) /[facility] Aug 31, 2024 05:05 AM CHEST 1 VIEW: ALIYAH MANDEL JAMIN [id number] -1940 M Exm Date: AUG 31, 2024@05:05 Req Phys: LEEROY HUGHES Pat Loc: ICU PCU MED-CO/08-31-2024@07:3 Img Loc: CO-GENERAL ENGINEERING TEACHER Service: [facility] [place] [address] (Case [id number] COMPLETE) CHEST 1 VIEW (RAD Detailed) CPT:03471 Reason for Study: Assess pulmonary function s/p pacemaker AICD placement Clinical History: Report Status: Verified Date Reported: AUG 31, 2024 Date Verified: AUG 31, 2024 Bottoming Machine Operator E-Sig:/ES/Aubrie Garcia MD PhD Report: History: AICD [...] Aubrie Garcia MD PhD, CHIEF, CLINICAL SUPPORT (Bottoming Machine Operator) /[facility]E VELE[facility] Aug 27, 2024 06:51 AM CHEST 1 VIEW: ALIYAH MANDEL [id number] -[id number] M Exm Date: AUG 27, 2024@06:51 Req Phys: RYAN HALL Pat Loc: CO-ED (Req'g Loc) Img Loc: CO-GENERAL ENGINEERING TEACHER Service: Unknown [place] [address] (Case [id number] COMPLETE) CHEST 1 VIEW (RAD Detailed) CPT:63733 Proc Modifiers : PORTABLE Reason for Study: vtach Clinical History: If ordering Portable X-Ray call Tech at [phone] for prompt response Report Status: Verified Date Reported: AUG 27, 2024 Date Verified: AUG 27, 2024 Bottoming Machine Operator E-Sig:/ES/Aubrie Garcia MD PhD Report: History: Ventricular tachycardia. Single view of the chest. Comparison: 05/20/2023. Findings: Lungs are clear. Mild cardiomegaly without pulmonary edema. Soft tissues are unremarkable. Atherosclerosis. Osseous structures demonstrate degenerative changes. Impression: Mild cardiomegaly without pulmonary edema. READING PHYSICIAN: Aubrie Garcia 08/27/2024 7:29 AM Primary Diagnostic Code: NO ALERT REQUIRED Primary Interpreting Staff: Aubrie Garcia MD PhD, CHIEF, CLINICAL SUPPORT (Bottoming Machine Operator) /AUBRIE VELEZ [facility]
--- OUTSIDE RECORDS SUMMARY | 2024-09-25 16:06 | XMS_ITS | Encounter Summary ---
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 Date/Time Encounter Type Encounter Description Reason Provider Source Jun 21, 2024 02:00 PM OFFICE O/P EST HI 40 MIN GERIPACT ICD-10-CM I10 Essential (primary) hypertension ABIGAIL PERALTA HASQUIANA IHE Encounter Template Text not used by [place] Assessments - Encounter Diagnoses This section includes the primary and secondary diagnoses documented for the Encounter. Date/Time Primary/Secondary Diagnosis Diagnosis Name Provider Source Jun 21, 2024 02:35 PM PRIMARY Essential (primary) hypertension ABIGAIL PERALTA [facility] Jun 21, 2024 02:35 PM SECONDARY Gastro-esophageal reflux disease without esophagitis ABIGAIL PERALTA [facility] Plan of Treatment: Future Appointments (+ 6 months) and Future Tests (+/- 45 days) The Plan of Treatment section includes future care activities for the patient [facility] This section includes future appointments and future orders which are active, pending or scheduled. Future Appointments This section includes appointments that were scheduled to occur 6 months from the date of the Encounter, up to a maximum of 20 appointments. The data comes from all [place] treatment facilities. Appointment Date/Time Appointment Type Appointme nt Facility Name Jul 29, 2024 01:00 PM AMBULATORY - MEDICINE [facility] Jul 29, 2024 02:00 PM [facility] Aug 10, 2024 08:00 AM [facility] Aug 11, 2024 11:00 AM AMBULATORY - NONE [facility] Aug 27, 2024 06:28 AM AMBULATORY - MEDICINE [facility] Sep 02, 2024 01:00 PM AM[facility]UL[facility]ORY - NONE [facility] Sep 13, 2024 02:00 PM [facility] October 08, 2024 10:30 AM [facility] October 12, 2024 09:00 AM AM[facility]ATORY - NONE [facility] October 12, 2024 10:00 AM AM[facility]ATORY - NONE [facility] October 25, 2024 02:00 PM AMBULATORY - SURGERY [facility] Nov 15, 2024 02:00 PM [facility] Dec 13, 2024 10:00 AM AMBULATORY - MEDICINE [facility] Active, Pending, and Scheduled Orders This section includes a listing of several types of active, pending, and scheduled orders, including clinic medications orders, diagnostic test orders, procedure orders and consult orders; where the start date of the order is 45 days before the date of the Encounter or 45 days after the date of theEncounter. The data comes from all [place] treatment facilities. Test Date/Time Test Type Test Details Facility Name Jul 29, 2024 02:19 PM Procedure Order CP CO-ECHO FUTURE CARE ([place]) CP CO-ECHO FUTURE CARE-[id number] Proc Utilization Supervisor's Choice [facility] Jul 29, 2024 02:19 PM Procedure Order EKG OUTPAT IENT-CO EKG Needed on: Jul Urgency: ROUTINE Diagnosis/Reason: Ischemia (125.9) [facility] Lab Results: +/- 30 days of the encounter This section includes the Chemistry and Hematology Lab Results on record with [place] for the patient. Radiology Reports and Pathology Reports are provided separately, in subsequent sections. Lab Results This section contains the Chemistry/Hematology Results that were resulted 30 days before or 30 daysafter the date of the Encounter. Date/Time Source Result Type Result - Unit Interpretation Reference Range Specimen Type Comment Jun 21, 2024 01:21 PM [facility] CMP-NONFASTING ([place]) PLASMA Specimen Type: PLASMA No comment entered. Ordering Provider: ABIGAIL PERALTA Report Released Date/Time: Feb 17, 2024 02:39 PM Reporting Lab: [address] [id number] Performing Lab: [address] [id number] *CREATININE 1.15 mg/dL 0.7-1.3 UREA NITROGEN mg/dL [...] 62 U/L 40-150 EGFR (CKD-EPI 2020) 64 Vital Signs: All taken on the encounter date This section contains inpatient and outpatient Vital Signs collected on the date of the Encounter. Date/Time Temperature Pulse Blood Pressure Respiratory Rate SP02 Pain Height Weight Body Mass Index Source Jun 21, 2024 02:13 PM 52 125/68 [facility] Jun 21, 2024 02:12 PM 98.1 49 135/73 94 0 204 32 [facility] Social History: Smoking Status (Most current) and Tobacco Use (All prior to encounter date) This section includes the most current, and the historical, smoking and tobacco- related health factors from the [place] facility where the Encounter took place. Current Smoking Status This section includes the most current smoking, or tobacco-related health factor, from the AL facility where the Encounter took place. Date/Time Current Smoking Status Comment Blanco ity Jun 21, 2024 02:00 PM VA-TOBACCO USE FOR SATHISH CIGARETTES [facility] Tobacco Use History This section includes a history of the smoking, or tobacco-related health factors, that were collected on or before the date of the Encounter. The data comes from the [place] facility where the Encounter took place. Date/Time Smoking Status/Tobacco Use Comment F acility Jun 21, 2024 02:00 PM VA-TOBACCO USE FOR SATHISH CIGARETTES [facility] Advance Directives: All historical and current Section Date Range: From patient's date of to the date document was created. This section includes ALL of a patient's completed or amended [place] Advance and Rescinded Directives. The entries below indicate that a directive exists for the patient, but an actual copy is not included with this document. The data comes from all [facility]. Date Advance Directives Provider Source October 22, 2022 ADVANCE DIRECTIVE DISCUSSION ARGELIA CHAVEZ LOTUS [facility] Apr 04, 2022 ADVANCE DIRECTIVE DISCUSSION RAY ROQUE LOTUS [facility] Sep 30, 2020 ADVANCE DIRECTIVE DISCUSSION ILYA BROWN [facility] Jul 26, 2020 ADVANCE DIRECTIVE DISCUSSION FABY TAMEZ [facility] Apr 17, 2020 ADVANCE DIRECTIVE DISCUSSION LINETTE RAMIREZ [facility] Jan 17, 2020 ADVANCE DIRECTIVE DISCUSSION LINETTE RAMIREZ [facility] Feb 24, 2009 [facility]ANCE [facility]IVE [facility] Pathology Reports: +/- 30 days of [...] the Encounter. The data comes from all [facility] facilities. Date/Time Pathology Report Provider Source May 28, [...] - - - - - - SEE MusicAll FOR SCANNED REPORT /santiago/ JOANA HARRIS DIRECTOR OF PATHOLOGY Signed May 28, 2024@09:06 Performing Laboratory: Surgical Pathology Report Performed By: [employer]ec[facility] MAHAN [CLIA# [id number]] [address] [place] [address] $FTR - - - - - - [...] - - ALIYAH COREY STANDARD FORM 515 ID:[id number] SEX:M :1940 AGE: 84 LOC:*DERM PCP: Abigail Peralta /santiago/ JOANA HARRIS DIRECTOR OF PATHOLOGY Signed: 05/28/2024 09:06 JOANA HARRIS [facility] Encounter Notes: All associated encounter notes This section contains the clinical notes associated to the Encounter. Date/Time Encounter Note(s) Provider Source Jun 21, 2024 02:26 PM GERIATRIC MEDICINE INITIAL EVALUATION NOTE: LOCAL TITLE: CO-PC GERIATRIC COMPREHENSIVE ASSESSMENT (D) STANDARD TITLE: GERIATRIC MEDICINE INITIAL EVALUATION NOTE DATE OF NOTE: JUN 21, 2024@14:26 ENTRY DATE: JUN 21, 2024@14:26:07 AUTHOR: ABIGAIL PERALTA EXP COSIGNER: URGENCY: STATUS: COMPLETED Type of Evaluation: Geriatric Follow-up Mr. Corey is a pleasant 84-year-old male who presents today for f/u. His past medical history includes hypertension, hyperlipidemia, CAD, s/p cardiac stents and BPH. He lives with his and is independent in his ADLs/IADLs. He reports no new complains today. REVIEW OF SYSTEMS GENERAL: No weight loss, weakness, anorexia, fever, chills, night sweats. SKIN: No new rashes, no unhealing lesions, no moles. HEENT: No visual or auditory symptoms. RESPIRATORY: No shortness of breath, cough or sputum. CARDIOVASCULAR: No chest pain or palpitation. GI: No abdominal pain, nausea, vomiting or bowel changes. : No urinary symptoms in daytime Past History / Problems: Active Problem Coronary arteriosclerosis History of placement of stent for coronary artery disease Benign essential hypertension Benign prostatic hypertrophy with outflow obstruction H/O: angina pectoris Hyperlipidemia Aortic valve regurgitation Current drinker Hiatal hernia GERD - Gastro-Esophageal Reflux Disease ([facility] [id number]) Constipation Exposure to potentially hazardous substance Difficulty in Walking, not elsewhere classified Your lab results are as follows: 06/21/24 13:21 GLUCOSE 99 06/21/24 13:21 UREA NITROGEN mg/d 18 06/21/24 13:21 *CREATININE 1.15 06/21/24 13:21 SODIUM 137 06/21/24 13:21 POTASSIUM 4.4 06/21/24 13:21 CALCIUM (mg/dL) 8.9 06/21/24 13:21 PROTEIN,TOTAL 6.8 06/21/24 13:21 ALBUMIN 4.1 06/21/24 13:21 TOTAL BILIRUBIN 0.5 06/21/24 13:21 ASPARTATE TRANSAMI 11 06/21/24 13:21 ALANINE AMINOTRANS 11 06/21/24 13:21 CHLORIDE 107 06/21/24 13:21 CO2 21L 06/21/24 13:21 ALKALINE PHOSPHATA 62 06/21/24 13:21 EGFR (CKD-EPI 2020 64 05/17/24 Surgical Path results available UPDATED MEDICATION LIST: Active Outpatient Medications (including Supplies): Active Outpatient [...] FOR HEART OR HIGH BLOOD PRESSURE 8) METOPROLOL SUCCINATE 50MG SA TAB TAKE ONE-HALF TABLET ACTIVE BY MOUTH EVERY MORNING FOR BLOOD PRESSURE SWALLOW WHOLE, DO NOT CRUSH OR CHEW (TABLETS MAY BE CUT IN HALF). 9) NITROGLYCERIN 0.4MG SL TAB DISSOLVE ONE TABLET UNDER ACTIVE THE TONGUE EVERY MORNING NEEDED FOR CHEST PAIN. IF NO IMPROVEMENT AFTER FIRST DOSE CALL 9-1-1. MAY TAKE 2 ADDITIONAL DOSES, 5 MINUTES APART. 10) OMEPRAZOLE 20MG EC CAP TAKE ONE CAPSULE BY MOUTH ACTIVE EVERY MORNING FOR GERD - TAKE WITH A FULL GLASS OF WATER 30 MINUTES BEFORE FOOD OR OTHER DRINKS 11) RANOLAZINE 1000MG SA TAB TAKE ONE TABLET BY MOUTH TWO ACTIVE TIMES A DAY FOR HEART/PREVENT CHEST PAIN, *SWALLOW WHOLE- DO NOT CRUSH,BREAK OR CHEW* 12) ROSUVASTATIN CA 40MG TAB TAKE ONE TABLET BY MOUTH AT ACTIVE BEDTIME FOR CHOLESTEROL. REPORT ANY UNEXPLAINED MUSCLE PAIN OR WEAKNESS TO YOUR DOCTOR. 13) TAMSULOSIN HCL 0.4MG CAP TAKE ONE CAPSULE BY MOUTH ACTIVE ONCE A DAY FOR PROSTATE TAKE WITH FOOD Active Non-VA Medications Status 1) Non-VA ASPIRIN 81MG EC TAB 81MG MOUTH ONCE A DAY ACTIVE 14 Total Medications Allergies/Adverse Reactions: Patient has answered NKA __ PHYSICAL EXAM: DATE/TIME TEMP PULSE RESP BP PAIN WEIGHT PUL OX 06/21/24 @ 1413 52 125/68 06/21/24 @ 1412 98.1 49 135/73 0 204 94 05/10/24 @ 0904 98.6 03/29/24 @ 0811 98 03/12/24 @ 0916 98 46 100/53 94 03/02/24 @ 1307 98.2 GENERAL: No acute distress, pleasant, alert HEAD: Normocephalic/atraumatic EYES: No scleral icterus/redness, no lid abnormality LUNGS: CTA,resp reg and nonlabored, HEART: RRR, no S3/S4, flow murmur Ext: No LE edema GAS (06/2024) MoCA (06/2024) MOCA () NUTRITION: Patient Height: 67 in [170.2 cm] (09/26/2023 07:47) Patient Current Weight: 92.73 kg. [204 lb.] (JUN 21, 2024@14:12:48) BMI: 32.0 ADLs: Independent IADLs: Independent PERSONAL HISTORY: Patient currently lives with his in a single-family residence in [place], [place]. Patient and his of 40 years have two adult children, one lives in [place], [place], and maintains regular contact with him. Patient also has three adult children from his first marriage. Patient completed 12 years of formal education, as well as some college courses in business administration and accounting. Patient was employed by the [employer]. He retired for age in 1999. Patient served in the [employer] from [id number]. He worked within [employer]. 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 Patient denied current or past problems related to alcohol use. He reported no history of illicit drug use or misuse of prescription medicines. He smoked cigarettes for 30 years and quit smoking cigarettes in 1990. QUALITY OF LIFE: Fair ASSESSMENT: 1. HTN 2. GERD PLAN: 1. Stable, advised to continue current management. 2. Discussed supportive measures like avoiding soda, mint, caffeine, chocolate, drinking, smoking, lying down right after eating. Advised to elevate head end of bed and finish having dinner 3 hrs prior to going to bed. I advised to take omeprazole on an as-needed basis. Other: MoCA score 18/30 today- neuropsych eval request submitted. Advised to decrease alcholol intake to 1 drink per day * Reviewed medications with patient. TIME SPENT WITH PATIENT: [id number] 65 Minutes over 50% time spend reviewing changes in plan of care/education r/t health issues presented during clinic visit (Patient was also evaluated by [employer] TEAM MEMBER and BH today(please see notes) Return to clinic (see orders) /santiago/ ABIGAIL PERALTA PHYSICIAN Signed: 06/25/2024 09:53 ABIGAIL PERALTA [facility] Jun 21, 2024 02:06 PM NURSING OUTPATIENT NOTE: LOCAL TITLE: CO-PC NURSE NOTE (D) STANDARD TITLE: NURSING OUTPATIENT NOTE DATE OF NOTE: JUN 21, 2024@14:06 ENTRY DATE: JUN 21, 2024@14:06:44 AUTHOR: ERIK KELLY EXP COSIGNER: URGENCY: STATUS: COMPLETED Patient Identifiers : Full Name, Date of , Last 4 of SSN Reason for visit: Established Follow-Up Visit Objective What is most important for you to get out of today's visit? joss pact f/u Mode of Arrival: Ambulatory Does patient have both fever AND new or worsening cough or shortness of breath? No Is there anything in your life that is causing you any kind of stress? Patient stated that there are no stressful situations at this time. Allergy Review: Patient has answered NKA Allergy list reviewed and remains current. Are you registered for My [employer] (DZZOM)? Yes - Do you have an upgraded account which gives you the added benefit of Secure Messaging with your Primary Care Provider? Yes - Done Is patient on oxygen? No Is patient receiving senior care care? No Is patient using the services of a home health aide? No Time spent with the contact: 5-10 minutes. Alcohol Use Screen (AUDIT-C)-V: Alcohol Screen: SCREEN FOR ALCOHOL (AUDIT-C) An alcohol screening [...] one occasion in the past year? Never Depression Screening-V: Perform PHQ-2 A PHQ-2 screen was performed. The score was 0 which is a negative screen for depression. Over the past two weeks, how often have you been bothered by the following problems? 1. Little interest or pleasure in doing things Not at all 2. Feeling down, depressed, or hopeless Not at all Tobacco Use Screening-AT,DE,L,M,N,P,PH,PS,R T,S,U: The patient is a former cigarette smoker. The patient has never used other types of tobacco. CO-FRAILTY REMINDER: Patient does not meet the criteria for frailty. MST Screening-V: Patient denies experiencing sexual trauma (MST). /santiago/ ERIK KELLY LICENSED PRACTICAL NURSE Signed: 06/21/2024 14:10 ERIK KELLY [facility]
--- OUTSIDE RECORDS SUMMARY | 2024-09-25 16:06 | XMS_ITS | Encounter Summary ---
Author Name [facility] Address [address] [place] [address] Care Team Providers Care Chemist Enzymes Name Role Phone ABIGAIL ÁLVAREZ Primary Care [...] PART A Feb 07, 2007 PART A [id number] TEQUILA ALIYAH PATIENT MEDICARE (WNR) MEDICARE (M) PART A Feb 07, 2007 PART A [id number] [phone] ALIYAH MANDEL PATIENT Selected Encounter This section includes the information on record at NH for the Encounter. Date/Time Encounter Type Encounter Description Reason Provider Source Aug 31, 2024 11:30 AM LOCM 300-399MG/ML IODINE,1ML EP LAB ICD-10-CM I42.9 Cardiomyopathy, unspecified AYDEN ALMANZA MD IHE Encounter Template Text not used by [facility] Assessments - Encounter Diagnoses This section includes the primary and secondary diagnoses documented for the Encounter. Date/Time Primary/Secondary Diagnosis Diagnosis Name Provider Source Sep 01, 2024 07:50 AM PRIMARY Cardiomyopathy, unspecified EULALIA SERVIN [facility] Sep 01, 2024 07:50 AM SECONDARY Ventricular tachycardia, unspecified EULALIA SERVIN [facility] Plan of Treatment: Future Appointments (+ 6 months) and Future Tests (+/- 45 days) The Plan of Treatment section includes future care activities for the patient from all [facility] treatment[facility]. This section includes future appointments and future [...] PM AMBULATORY - NONE [address] [facility] Sep 13, 2024 02:00 PM AMBULATORY - MEDICINE [facility] October 08, 2024 10:30 AM AMBULATORY - MEDICINE COLU [facility] October 12, 2024 09:00 AM AMBULATORY - NONE [address] [facility] October 12, 2024 10:00 AM AMBULATORY - NONE [address] [address] [facility] October 25, 2024 02:00 PM AMBULATORY - SURGERY [facility] Nov 15, 2024 02:00 PM AMBULATORY - MEDICINE COLU [facility] Dec 13, 2024 10:00 AM AMBULATORY - MEDICINE COLU [facility] Dec 21, 2024 10:30 AM AMBULATORY - MEDICINE COLU [facility] Feb 15, 2025 10:00 AM AMBULATORY - MEDICINE COLU [facility] Feb 15, 2025 11:00 AM AMBULATORY - NONE [facility] Active, Pending, and Scheduled Orders This section includes a listing of several types of active, pending, and scheduled orders, including clinic medications orders, diagnostic test orders, procedure orders and consult orders; where thestart date of the order is 45 days before the date of the Encounter or 45 days after the date of the Encounter. The data comes from all [facility]. Test Date/Time Test Type Test Details Facility Name Jul 29, 2024 02:19 PM Procedure Order CP CO-ECHO FUTURE CARE (ND) CP CO-ECHO FUTURE CARE-589A4 Proc Ice Sculptor's Choice [facility] Jul 29, 2024 02:19 PM Procedure Order EKG OUTPAT IENT-CO EKG Needed on: Jul Urgency: ROUTINE Diagnosis/Reason: Ischemia (125.9) [facility] Aug 31, 2024 12:48 AM Laboratory - Blood Bank Order TYPE & SCREEN - LAB BLOOD,PINK/PURPLE (7-9ML) WC [facility] October 12, 2024 12:00 AM Laboratory - Chemi stry Order LIPID PROFILE(HDL,TRIG,CHO L,LDL) GREEN TOP TUBE PLASMA JUAN DAVID [facility] October 12, 2024 12:00 AM Laboratory - Chemi stry Order CMP-NONFASTING (CO) GREEN TOP TUBE PLASMA [facility] Lab Results: +/- 30 days of [...] Type Comment Sep 01, 2024 03:14 AM [facility] MAGNESIUM (mg/dL) PLASMA Specimen Type: PLASMA No comment entered. Ordering Provider: LEEROY HUGHES Report Released Date/Time: Aug 31, 2024 09:28 AM Reporting Lab: [address] [address] Performing Lab: [address] [address] MAGNESIUM (mg/dL) 2.1 mg/dL 1.6-2.6 Sep 01, 2024 03:14 AM [facility] COMPREHENSIVE METABOLIC PANEL PLASMA Specimen Type: PLASMA No comment entered. Ordering Provider: LEEROY HUGHES Report Released Date/Time: Aug 31, 2024 09:28 AM Reporting Lab: [address] [address] Performing Lab: [address] [address] *CREATININE 1.12 mg/dL 0.70-1.30 UREA NITROGEN mg/dL [...] 2020) 66 Sep 01, 2024 03:14 AM [facility] CBC & DIFF BLOOD Specimen Type: BLOOD No comment entered. Ordering Provider: LEEROY HUGHES Report Released Date/Time: Aug 31, 2024 09:28 AM Reporting Lab: [address] [address] Performing Lab: [address] [address] WBC 15.00 10*3/uL H 3.6-11.2 RBC 4.10 [...] % 0.6 Aug 31, 2024 05:45 AM [facility] ANTI-Xa (CO) BLOOD Specimen Type: BLOOD Comment: Critical Values: Unfractionated Heparin: > 1.0 IU/mL For Low Molecular Weight Heparin reference ranges contact lab. Ordering Provider: LARRY BARRIOS Report Released Date/Time: Aug 27, 2024 12:18 PM Reporting Lab: [address] Performing Lab: [place] [id number] ANTI-Xa (CO) <0.04 [IU]/mL 0.3-0.7 Aug 31, 2024 05:45 AM [facility] MAGNESIUM (mg/dL) PLASMA Specimen Ty pe: PLASMA No comment entered. Ordering Provider: LEEROY HUGHES Report Released Date/Time: Aug 30, 2024 11:25 AM Reporting Lab: [place] [id number] Performing Lab: [place] [id number] MAGNESIUM (mg/dL) 2.2 mg/dL 1.6-2.6 Aug 31, 2024 05:45 AM [facility] COMPREHENSIVE METABOLIC PANEL PLASMA Specimen Type: PLASMA No comment entered. Ordering Provider: LEEROY HUGHES Report Released Date/Time: Aug 30, 2024 11:25 AM Reporting Lab: [place] [id number] Performing Lab: [place] [phone] *CREATININE 1.04 mg/dL 0.70-1.30 UREA NITROGEN mg/dL [...] 2020) 72 Aug 31, 2024 05:45 AM [facility] CBC & DIFF BLOOD Specimen Type: BLOOD No comment entered. Ordering Provider: LEEROY HUGHES Report Released Date/Time: Aug 30, 2024 11:25 AM Reporting Lab: [address] [address] Performing Lab: [address] [address] WBC 9.50 10*3/uL 3.6-11.2 RBC 4.12 10*6/uL [...] % 0.7 Aug 30, 2024 04:23 AM [facility] CMP-NONFASTING (CO) PLASMA Specimen Type: PLASMA No comment entered. Ordering Provider: LARRY BARRIOS Report Released Date/Time: Aug 29, 2024 12:07 PM Reporting Lab: [address] [address] Performing Lab: [address] [address] *CREATININE 1.10 mg/dL 0.70-1.30 UREA NITROGEN mg/dL [...] 2020) 67 Aug 30, 2024 04:23 AM [facility] CBC & DIFF BLOOD Specimen Type: BLOOD No comment entered. Ordering Provider: LARRY BARRIOS Report Released Date/Time: Aug 29, 2024 12:07 PM Reporting Lab: [address] [address] Performing Lab: [address] [address] WBC 8.80 10*3/uL 3.6-11.2 RBC 3.99 10*6/uL [...] % 0.9 Aug 29, 2024 04:23 AM [facility] CMP-NONFASTING (CO) PLASMA Specimen Type: PLASMA No comment entered. Ordering Provider: LARRY BARRIOS Report Released Date/Time: Aug 28, 2024 10:54 AM Reporting Lab: [address] Performing Lab: [place] [id number] *CREATININE 1.04 mg/dL 0.70-1.30 UREA NITROGEN mg/dL [...] 2020) 72 Aug 29, 2024 04:23 AM [facility] CBC & DIFF BLOOD Specimen Type: BLOOD No comment entered. Ordering Provider: LARRY BARRIOS Report Released Date/Time: Aug 28, 2024 10:54 AM Reporting Lab: [address] Performing Lab: [place] [id number] WBC 8.50 10*3/uL 3.6-11.2 RBC 4.28 10*6/uL [...] % 0.6 Aug 28, 2024 04:50 AM [facility] T4 FREE SERUM Specimen Type: SERUM No comment entered. Ordering Provider: LARRY BARRIOS Report Released Date/Time: Aug 27, 2024 03:47 PM Reporting Lab: [place] [id number] Performing Lab: [place] [id number] T4 FREE 0.8 ng/dL 0.7-1.48 Aug 28, 2024 04:50 AM [facility] TSH SERUM Specimen Type: SERUM No comment entered. Ordering Provider: LARRY BARRIOS Report Released Date/Time: Aug 27, 2024 03:47 PM Reporting Lab: [place] [id number] Performing Lab: [place] [id number] *TSH 1.66 u[IU]/mL 0.47-5.00 Aug 28, 2024 04:50 AM [facility] CMP-NONFASTING (CO) PLASMA Specimen Type: PLASMA No comment entered. Ordering Provider: LUIS YANES Report Released Date/Time: Aug 28, 2024 03:03 AM Reporting Lab: [address] [address] Performing Lab: [place] [id number] *CREATININE 0.87 mg/dL 0.70-1.30 UREA NITROGEN mg/dL [...] 2020) 86 Aug 28, 2024 04:50 AM [facility] CBC & DIFF BLOOD Specimen Type: BLOOD No comment entered. Ordering Provider: LUIS YANES Report Released Date/Time: Aug 28, 2024 03:03 AM Reporting Lab: [address] [address] Performing Lab: [address] [address] WBC 9.20 10*3/uL 3.6-11.2 RBC 4.23 10*6/uL [...] % 0.5 Aug 27, 2024 02:14 PM [facility] ACT.CLOTTING TIME BLOOD Specimen Ty pe: BLOOD No comment entered. Ordering Provider: JEROME DOTY Report Released Date/Time: Aug 27, 2024 02:44 PM Reporting Lab: [place] [id number] Performing Lab: [place] [id number] ACT.CLOTTING TIME 153 s H 74-137 Aug 27, 2024 11:30 AM [facility] hsTROP-CO PLASMA Specimen Type: PLASMA Comment: TROP-T-HS Called to: Velvet Bartlett RN at: 1213 on: 08/27/24 by: Jasvir Cunningham Result read back to comply with Joint Commission Ordering Provider: LARRY BARRIOS Report Released Date/Time: Aug 27, 2024 09:20 AM Reporting Lab: [place] [id number] Performing Lab: [place] [id number] hsTROP-CO 1017 HH See Interpretation Aug 27, 2024 08:55 AM [facility] MRSA SURVL NARES DNA NARES Specimen Type: NARES No comment entered. Ordering Provider: JEROME DOTY Report Released Date/Time: Aug 27, 2024 08:46 AM Reporting Lab: [place] [id number] Performing Lab: [place] [id number] MRSA SURVL NARES DNA Negative Negative Aug 27, 2024 08:20 AM [facility] URINALYSIS (ZOILA,WI,CO,EK) URINE Spec imen Type: URINE Comment: Microscopic not indicated Ordering Provider: RYAN HALL Report Released Date/Time: Aug 27, 2024 06:51 AM Reporting Lab: [place] [id number] Performing Lab: [place] [id number] *URINE COLOR Light-Yellow *URINE APPEARANCE Clear Clear *URINE PROTEIN Negative mg/dL Negative-T race *URINE LEUKOCYTE Negative Negative *URINE NITRITE Negative Negative *URINE BLOOD Negative Negative *URINE GLUCOSE Negative mg/dL Negative *URINE KETONES Negative mg/dL Negative *URINE PH 7.0 5.0-8.0 *URINE SPECIFIC GRAVITY 1.011 1.005-1. 030 *URINE BILIRUBIN Negative Negative *URINE UROBILINOGEN Normal mg/dL Normal Aug 27, 2024 06:40 AM [facility] PT/INR PLASMA Specimen Type: PLASMA No comment entered. Ordering Provider: RYAN HALL Report Released Date/Time: Aug 27, 2024 06:51 AM Reporting Lab: [address] [address] Performing Lab: [place] [id number] *INR 1.0 {INR} *PT 11.4 s 9.4-12.5 Aug 27, 2024 06:40 AM [facility] COMPREHENSIVE METABOLIC PANEL PLASMA Specimen Type: PLASMA No comment entered. Ordering Provider: RYAN HALL Report Released Date/Time: Aug 27, 2024 06:51 AM Reporting Lab: [place] [id number] Performing Lab: [place] [id number] *CREATININE 1.14 mg/dL 0.70-1.30 UREA NITROGEN mg/dL [...] 2020) 64 Aug 27, 2024 06:40 AM [facility] APTT PLASMA Specimen Type: PLASMA No comment entered. Ordering Provider: RYAN HALL Report Released Date/Time: Aug 27, 2024 06:51 AM Reporting Lab: [address] [address] Performing Lab: [place] [id number] APTT 29.8 s 26.7-39.9 Aug 27, 2024 06:40 AM [facility] hsTROP-CO PLASMA Specimen Type: PLASMA No comment entered. Ordering Provider: RYAN HALL Report Released Date/Time: Aug 27, 2024 06:51 AM Reporting Lab: [place] [id number] Performing Lab: [place] [id number] hsTROP-CO 15 See Interpretation Aug 27, 2024 06:40 AM [facility] ANTI-Xa (CO) BLOOD Specimen Type: BLOOD Comment: Critical Values: Unfractionated Heparin: > 1.0 IU/mL For Low Molecular Weight Heparin reference ranges contact lab. Ordering Provider: RYAN HALL Report Released Date/Time: Aug 27, 2024 07:24 AM Reporting Lab: [place] [id number] Performing Lab: [place] [id number] ANTI-Xa (CO) <0.04 [IU]/mL 0.3-0.7 Aug 27, 2024 06:40 AM [facility] NTproBNP (CO,WI) PLASMA Specimen Typ e: PLASMA No comment entered. Ordering Provider: RYAN HALL Report Released Date/Time: Aug 27, 2024 06:51 AM Reporting Lab: [place] [id number] Performing Lab: [place] [phone] NTproBNP (CO,WI) 410 pg/mL -See Interpre tation Aug 27, 2024 06:40 AM [facility] CBC & DIFF BLOOD Specimen Type: BLOOD No comment entered. Ordering Provider: RYAN HALL Report Released Date/Time: Aug 27, 2024 06:51 AM Reporting Lab: [place] [id number] Performing Lab: [place] [id number] WBC 15.70 10*3/uL H 3.6-11.2 RBC 4.80 [...] 0.00 -0.20 Aug 27, 2024 06:40 AM [facility] PATHOLOGIST REVIEW BLOOD Specimen T ype: BLOOD Comment: Reviewed by Dr. Chepe Yu: Reactive Lymphocytes. Ordering Provider: RYAN HALL Report Released Date/Time: Aug 27, 2024 06:51 AM Reporting Lab: [address] [address] Performing Lab: [address] [address] PATHOLOGIST REVIEW comment Vital Signs: All taken on the encounter date This section contains inpatient and outpatient Vital Signs collected on the date of the Encounter. Date/Time Temperature Pulse Blood Pressure Respiratory Rate SP02 Pain Height Weight Body Mass Index Source Aug 31, 2024 08:00 PM 98.2 61 121/68 20 94 5 [facility] Aug 31, 2024 08:51 AM 97.3 55 130/56 13 97 0 [facility] Aug 31, 2024 07:24 AM 216.71 34 [facility] Social History: Smoking Status (Most current) and Tobacco Use (All prior to encounter date) This section includes the most current, and the historical, smoking and tobacco- related health factors from the NH facility where the Encounter took place. Current Smoking Status This section includes the most current smoking, or tobacco-related health factor, from the NH facility where the Encounter took place. Date/Time Current Smoking Status Comment Facil ity Apr 30, 2023 01:00 PM VA-TOBACCO FORMER USER [facility] Tobacco Use History This section includes a history of the smoking, or tobacco-related health factors, that were collected on or before the date of the Encounter. The data comes from the NH facility where the Encounter took place. Date/Time Smoking Status/Tobacco Use Comment F acility Apr 30, 2023 01:00 PM VA-TOBACCO QUIT 15 YRS OR MORE [facility] Apr 04, 2022 09:15 AM VA-TOBACCO FORMER USER [facility] Apr 04, 2022 09:15 AM VA-TOBACCO QUIT 15 YRS OR MORE [facility] Jul 18, 2021 10:13 AM INPT TOBACCO SCREENED NEGATIVE [facility] Apr 27, 2021 07:00 AM INPT TOBACCO SCREENED NEGATIVE [facility] October 31, 2020 02:30 PM INPT TOBACCO SCREENED NEGATIVE [facility] October 08, 2020 10:22 AM INPT TOBACCO SCREENED NEGATIVE [facility] October 07, 2020 07:22 AM VA-TOBACCO FORMER USER [facility] Sep 30, 2020 11:06 AM INPT TOBACCO SCREENED NEGATIVE [facility] Sep 29, 2020 04:05 PM VA-TOBACCO NEVER USED [facility] Jan 17, 2020 10:21 AM VA-TOBACCO FORMER USER [facility] Jan 17, 2020 10:21 AM VA-TOBACCO QUIT 15 YRS OR MORE [facility] Advance Directives: All historical and current Section Date Range: From patient's date of to the date document was created. This section includes ALL of a patient's completed or amended NH Advance and Rescinded Directives. The entries below indicate that a directive exists for the patient, but an actual copy is not included with this document. The data comes from all [facility]. Date Advance Directives Provider Source October 22, 2022 ADVANCE DIRECTIVE DISCUSSION ARGELIA CHAVEZ [facility] Apr 04, 2022 ADVANCE DIRECTIVE DISCUSSION RAY ROQUE [facility] Sep 30, 2020 ADVANCE DIRECTIVE DISCUSSION ILYA BROWN [facility] Jul 26, 2020 ADVANCE DIRECTIVE DISCUSSION FABY TAMEZ [facility] Apr 17, 2020 ADVANCE DIRECTIVE DISCUSSION ASHLEYLINETTE MCKEON [facility] Jan 17, 2020 ADVANCE DIRECTIVE DISCUSSION ASHLEYLINETTE DIANA MIKE [facility] Feb 24, 2009 ADVANCE DIRECTIVE CANDYHECTOR [facility] Radiology Reports: +/- 30 days [...] the Encounter. The data comes from all NH treatment facilities. Date/Time Radiology Report Provider Source Sep 01, 2024 06:18 AM CHEST 2 VIEWS: ALIYAH MANDEL [id number] -1940 M Exm Date: SEP 01, 2024@06:18 Req Phys: TERRELL GUO Pat Loc: ICU PCU MED-CO/09-01-2024@07:2 Img Loc: CO-DOCTOR OF OPTOMETRY Service: [facility] [place] [address] (Case [id number] COMPLETE) CHEST 2 VIEWS (RAD Detailed) CPT:40795 Reason for Study: Assess pulmonary status S/P Pacemaker/AICD implant Clinical History: Morning after procedure DO NOT raise left arm above shoulder level. Report Status: Verified Date Reported: SEP 01, 2024 Date Verified: SEP 01, 2024 [employer] E-Sig:/ES/Aubrie Lentz MD PhD Report: History: Pacemaker placement. 2 views of the chest. Comparison: 08/31/2024 through 08/27/2024. Findings: No pneumothorax. Lungs are clear. 3-lead cardiac generator placement without evidence of complication. Cardiac size, pulmonary vessels, and soft tissues are unremarkable. Atherosclerosis. Osseous structures demonstrate degenerative changes. Impression: Cardiac generator placement without complication. READING PHYSICIAN: Aubrie Lentz 09/01/2024 7:21 AM Primary Diagnostic Code: NO ALERT REQUIRED Primary Interpreting Staff: Aubrie Lentz MD PhD, CHIEF, CLINICAL SUPPORT ([employer]) /MDT JOSE,[facility] Aug 31, 2024 04:27 PM CHEST 1 VIEW: ALIYAH MANDEL [id number] -1940 M Exm Date: AUG 31, 2024@16:27 Req Phys: CRISTIANODENISACAREYTERRELLWENDY GREENN Pat Loc: ICU PCU MED-IA/09-01-2024@07:2 Img Loc: CO-DOCTOR OF OPTOMETRY [facility] [address] (Case [id number] COMPLETE) CHEST 1 VIEW (RAD Detailed) CPT:66220 Proc Modifiers : PORTABLE Reason for Study: s/p pacemaker Clinical History: Report Status: Verified Date Reported: SEP 01, 2024 Date Verified: SEP 01, 2024 [employer] E-Sig:/ES/Aubrie Lentz MD PhD Report: History: Pacemaker placement. Single view of the chest. Comparison: 08/31/2024. Findings: No pneumothorax. Lungs are clear. 3-lead cardiac generator placement without evidence of complication. Cardiac size, pulmonary vessels, and soft tissues are unremarkable. Atherosclerosis. Osseous structures demonstrate degenerative changes. Impression: Cardiac generator placement without complication. READING PHYSICIAN: Aubrie Lentz 09/01/2024 7:21 AM Primary Diagnostic Code: NO ALERT REQUIRED Primary Interpreting Staff: Aubrie Lentz MD PhD, CHIEF, CLINICAL SUPPORT ([employer]) /MDT [facility] Aug 31, 2024 05:05 AM CHEST 1 VIEW: ALIYAH MANDEL [id number] -1940 M Exm Date: AUG 31, 2024@05:05 Req Phys: LEEROY HUGHES Pat Loc: ICU [facility]-IA/08-31-2024@07:3 Img Loc: CO-DOCTOR OF OPTOMETRY Service: [facility] [address] (Case [id number] COMPLETE) CHEST 1 VIEW (RAD Detailed) CPT:84785 Reason for Study: Assess pulmonary function s/p pacemaker AICD placement Clinical History: Report Status: Verified Date Reported: AUG 31, 2024 Date Verified: AUG 31, 2024 [employer] E-Sig:/ES/Aubrie Lentz MD PhD Report: History: AICD placement. Single AP portable view of the chest was obtained. Comparison: 08/27/2024. Findings: Unchanged benign calcified granuloma in the right upper lobe. Lungs are otherwise clear. Heart is normal in size and contour. Pulmonary vessels are normal in size and caliber. Osseous and soft tissues are normal. Impression: No acute findings. READING PHYSICIAN: Aubrie Lentz 08/31/2024 7:27 AM Primary Diagnostic Code: NO ALERT REQUIRED Primary Interpreting Staff: Aubrie Lentz MD PhD, CHIEF, CLINICAL SUPPORT ([employer]) /AUBRIE VELEZ [facility] Aug 27, 2024 06:51 AM CHEST 1 VIEW: ALIYAH MANDEL [id number] -1940 M Exm Date: AUG 27, 2024@06:51 Req Phys: RYAN HALL Loc: CO-ED (Req'g Loc) Img Loc: CO-DOCTOR OF OPTOMETRY Service: Unknown [place] [address] (Case [id number] COMPLETE) CHEST 1 VIEW (RAD Detailed) CPT:46055 Proc Modifiers : PORTABLE Reason for Study: vtach Clinical History: If ordering Portable X-Ray call Tech at [id number] for prompt response Report Status: Verified Date Reported: AUG 27, 2024 Date Verified: AUG 27, 2024 [employer] E-Sig:/ES/Aubrie Lentz MD PhD Report: History: Ventricular tachycardia. Single view of the chest. Comparison: 05/20/2023. Findings: Lungs are clear. Mild cardiomegaly without pulmonary edema. Soft tissues are unremarkable. Atherosclerosis. Osseous structures demonstrate degenerative changes. Impression: Mild cardiomegaly without pulmonary edema. READING PHYSICIAN: Aubrie Lentz 08/27/2024 7:29 AM Primary Diagnostic Code: NO ALERT REQUIRED Primary Interpreting Staff: Aubrie Lentz MD PhD, CHIEF, CLINICAL SUPPORT ([employer]) /AUBRIE VELEZ [facility] Encounter Notes: All associated encounter notes This section contains the clinical notes associated to the Encounter. Date/Time Encounter Note(s) Provider Source Aug 31, 2024 04:17 PM ELECTROPHYSIOLOGY NOTE: LOCAL TITLE: CP CO-ELECTROPHYSIOLOGY STANDARD TITLE: ELECTROPHYSIOLOGY NOTE DATE OF NOTE: AUG 31, 2024@16:17:34 ENTRY DATE: AUG 31, 2024@16:17:34 AUTHOR: CLINICAL,DEVICE PRO EXP COSIGNER: URGENCY: STATUS: COMPLETED PROCEDURE SUMMARY CODE: Machine Resulted DATE/TIME PERFORMED: AUG 31, 2024@12:27:0 DOCUMENT IN VISTA IMAGING SEE FULL REPORT IN VISTA IMAGING SIGNATURE NOT REQUIRED SEE SIGNATURE IN VISTA IMAGING (CO-CCW (EP)) AUTO-INSTRUMENT DIAGNOSIS Procedure: CO_EP EP [facility]ogesh [place] [address] [address] Patient Information Patient Name ALIYAH MANDEL Study Date 08/31/2024 Study Number EP-[id number] Date of 1940 Age 84 Years Gender Male Race Height 173 cm (5'08 ) Weight 98 kg (216 lbs) BSA 2.11 m2 Staff Duty Name IN OUT Set Up Mechanic Automatic Line Ayden Almanza MD 11:58 AM Electrophysiology Fellow Will Cowart MD 11:58 AM Thread Cutter Tender Kevin Gallo RN, RCES 11:58 AM 2:21 PM Thread Cutter Tender Cesar Oseguera RN 11:58 AM 12:49 PM Monitor SPARKLE Pinon, ASSEMBLY MACHINE TENDER 11:58 AM Thread Cutter Tender Kevin Ellis RN 12:48 PM 2:14 PM Thread Cutter Tender Lo Nguyen RN 2:13 PM 3:15 PM Thread Cutter Tender Carl Chinchilla RN 2:18 PM Thread Cutter Tender Ling Bloom, GIULIA 3:15 PM Procedures Time Procedure Code 1 Code 2 Code 3 Code 4 Comment 2:11 PM Venogram (64263) 4:10 PM ICD insertion/replace single/dual Gen and leads (79405) Time-Out Form Timeout Participants: Dagmar Starr, Was patient a participant in the time-out? Yes Were two identifiers used to identify patient? Yes Patient Name: ALIYAH MANDEL Study Date: 08/31/2024 Admission ID: [id number] Page 1 of 42 [facility] [place] [address] [address] Verified correct procedure? Yes Consent Signed and reflects physician(s) N/A performing procedure? Anticipated equipment/supplies available? Yes Patient Position? Supine DVT Prophylaxis? N/A Blood Products Available? N/A Antibiotics? N/A Medical Implants? Yes Conscious Sedation ID Band applied? Yes Imaging Verification? Yes Fire risk assessment complete? Yes Airway Assessment and Pre-Procedure H&P Yes Completed? Allergies Allergies: NKDA Latex Allergy Risk: Have you ever had any No reaction after handling rubber products? Latex Allergy Risk: Are you allergic to bananas, No avocados, kiwi or chestnuts? Latex Allergy Risk: Do you have regular exposure No to latex in your work setting? Latex Allergy Risk procedures iniated? No IV Information IV Location #1 LFA IV Gauge: 18 IV Location #2 RAC IV Gauge: 20 Medication Events-M Start Stop Medication Amount Ordered by Given by Comment 12:00 PM Cefazolin IV 2 g Ayden Kevin Gallo RN, RCES 12:15 PM Fentanyl IV 50 mcg Ayden Gallo RN, RCES 12:15 PM Midazolam (Versed) IV 2 mg Ayden Gallo RN, RCES Patient Name: ALIYAH MANDEL Study Date: 08/31/2024 Admission ID: [id number] Page 2 of [address] [address] 12:29 PM Fentanyl IV 25 mcg Ayden Cesar Oseguera RN 2:20 PM Fentanyl IV 25 mcg Ayden Gallo RN, ES 2:20 PM Midazolam (Versed) IV 1 mg Ayden Gallo RN, ES 3:25 PM Midazolam (Versed) IV 1 mg Ayden 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 02/18/2026 Web Press Jogger of RA-Lead: Medtronic Model # of RA-Lead: 5076-52cm Serial # of RA-Lead: [id number] exp. 05/26/2026 Web Press Jogger of LV-CS Lead: Medtronic Model # of LV-CS Lead: 4398-88cm Serial # of LV-CS Lead: [id number] exp. 11/12/2024 Vital Signs Time SpO HR BP Insp Exp RR Tem LOC LOP Comment (BP (per Patient Name: ALIYAH MANDEL Study Date: 08/31/2024 Admission ID: [id number] Page 3 of 42 Yogesh [address]. [address] [address] 2 M) (m m Hg) CO2 CO2 m in) p (%) (m m H (m m H ( XC) g) g) 12:04 96 43 149/70/100 PM 12:08 96 85 134/65/93 PM 12:13 99 162 140/68/98 PM 12:18 61 118/57/84 PM 12:23 95 57 123/57/81 PM 12:28 96 87 121/65/87 PM 12:33 96 48 123/66/90 PM 12:38 54 123/65/88 PM 12:43 94 49 121/59/85 PM 12:48 94 52 116/60/82 PM 12:53 44 110/56/78 PM 12:58 93 97 109/56/77 PM 1:03 94 95 109/56/77 PM 1:08 93 71 113/60/81 PM 1:13 93 232 121/67/89 PM 1:18 93 178 124/68/90 PM 1:23 94 276 132/71/95 PM 1:28 94 143 118/61/86 PM 1:33 95 127 123/67/90 PM 1:38 94 232 124/64/88 PM 1:43 95 185 133/68/94 Patient Name: ALIYAH MANDEL Study Date: 08/31/2024 Admission ID: [id number] Page 4 of 42 Yogesh [address] [address] PM 1:48 95 176 130/65/91 PM 1:53 95 180 128/64/89 PM 1:58 95 105 131/67/94 PM 2:04 94 149 130/59/85 PM 2:08 95 180 123/59/83 PM 2:13 94 157 121/59/85 PM 2:18 94 49 116/57/80 PM 2:23 94 50 120/61/85 PM 2:28 94 51 122/59/83 PM 2:33 95 52 121/61/86 PM 2:38 94 66 127/63/90 PM 2:43 94 63 126/63/88 PM 2:48 93 138 125/62/88 PM 2:53 78 121/62/85 PM 2:58 95 50 120/57/83 PM 3:03 59 116/58/82 PM 3:08 95 48 113/59/80 PM 3:13 95 48 113/60/82 PM 3:18 95 49 114/63/84 PM 3:23 97 48 119/58/83 PM 3:28 94 49 119/62/83 PM 3:34 94 59 103/56/72 Patient Name: ALIYAH MANDEL Study Date: 08/31/2024 Admission ID: [id number] Page 5 of [address] [address] PM 3:39 93 59 118/61/83 PM 3:43 91 59 118/62/85 PM 3:48 93 59 119/64/86 PM 3:53 93 59 120/61/84 PM 3:58 92 138 125/65/89 PM 4:03 132 // PM 4:03 132 // PM Event Log-M Time Summary Comment Author 11:31:37 Patient Arrives Cesar Oseguera AM [facility] 11:31:38 Armband Checked and Cesar Oseguera AM Conscious Sedation Band [facility] Applied 11:31:47 Allergies Reviewed Cesar Oseguera AM [facility] 11:31:48 NPO Status: Cesar Oseguera AM [facility] 11:31:48 since midnight Cesar Oseguera AM [facility] 11:31:54 Consent Signed By: Cesar Oseguera AM [facility] 11:31:54 Cesar Mccrod AM [facility] 11:31:59 Conscious Sedation Assessment Cesar Oseguera AM and Pre-Procedure H&P ALMA Completed by 11:31:59 Cesar Mccord AM [facility] 11:32:05 Medications Taken Today: Cesar Oseguera AM [facility] 11:32:05 Morning meds with a sip of water Cesar Oseguera Patient Name: ALIYAH MANDEL Study Date: 08/31/2024 Admission ID: [id number] Page 6 of 42 Yogesh Leavitt [address] [address] [facility] 11:32:14 Current Chest Pain: Cesar Oseguera AM [facility] 11:32:15 denies [facility] 11:32:19 Shortness of Breath: Cesar Oseguera AM [facility] 11:32:19 denCesar Knapp [facility] 11:32:24 Lab Results Reviewed Cesar Oseguera AM [facility] 11:40:10 Pre-Procedure Pulses Checked Cesar Oseguera AM [facility] 11:40:31 IV Information Cesar Oseguera AM [facility] 11:40:32 Procedure Site Prepped Cesar Oseguera AM [facility] 11:40:33 Pre-Procedure Teaching Cesar Oseguera AM Performed [facility] 11:40:33 Patient Verbalized Understanding Cesar Oseguera AM of Procedure [facility] 11:40:34 Senior Applications Architect/Family Cesar Oseguera AM [facility] 11:40:34 Powell is an inpatient Cesar Oseguera AM [facility] 11:55:52 Protocol: Baseline Kevin Gallo AM [facility] 11:56:46 Pre-Procedure Count Performed Kevin Gallo AM [facility] 11:56:51 Patient Arrives with hands off Kevin Gallo AM defib/pacer pads placed on [facility] chest/back 11:58:53 Grounding pad placed on patient Kevin Gallo AM [facility] 12:00:57 Cefazolin IV 2 g Kevin Gallo [facility] 12:04:16 SpO2 96%; HR 43 bpm; 149/70/100 NBP; PM 12:08:42 SpO2 96%; HR 85 bpm; 134/65/93 NBP; PM 12:09:44 Baseline QRS 168msec Kevin Gallo [facility] 12:11:25 Verbal orders were read back to Kevin Gallo the physician for Confirmation [facility] Patient Name: ALIYAH MANDEL Study Date: 08/31/2024 Admission ID: [id number] Page 7 of 42 Yogesh [address]avitt [address] [address] 12:11:25 For shift change/break relief: Kevin Gallo [facility] 12:11:25 All medications, solutions, and Kevin Gallo labels on and off the Sterile [facility] 12:: Field were reviewed by entering Kevin Gallo and existing personnel [facility] 12:11:26 Oxygen @ 2 Li Kevin Gallo [facility] 12:12:15 Time-Out Performed Kevin Gallo [facility] 12:13:32 SpO2 99%; HR 162 bpm; 140/68/98 NBP; PM 12:15:38 Fentanyl IV 50 mcg Kevin Gallo [facility] 12:15:50 Midazolam (Versed) IV 2 mg Kevin Gallo [facility] 12:18:41 HR 61 bpm; 118/57/84 NBP; PM 12:23:40 SpO2 95%; HR 57 bpm; 123/57/81 NBP; PM 12:26:24 Patient prepped in sterile fashion Kevin Gallo [facility] 12:26:26 Pt draped in sterile fashion Kevin Gallo [facility] 12:26:27 Fellow Arrived Kevin Gallo [facility] 12:26:29 Physician Arrived Kevin Gallo [facility] 12:26:37 Pre-Procedure Count Performed Kevin Gallo [facility] 12:26:38 Case Event Kevin Gallo Type:Implant,Physician:Ayden Grier [facility] 12:27:02 Fellow Arrived & Scrubbed Kevin Gallo [facility] 12:27:03 Physician Arrived & Scrubbed Kevin Gallo [facility] 12:27:05 Case Start Kevin Gallo [facility] 12:27:09 Local Anesthetic Administered - Kevin Gallo 20ml 1% Lidocaine [facility] 12:28:35 SpO2 96%; HR 87 bpm; 121/65/87 NBP; PM 12:29:49 Ultrasound used for access Kevin Gallo [facility] Patient Name: ALIYAH MANDEL Study Date: 08/31/2024 Admission ID: [id number] Page 8 of 42 Yogesh Leavitt [address] [address] 12:29:53 Fentanyl IV 25 mcg Kevin Gallo [facility] 12:33:36 SpO2 96%; HR 48 bpm; 123/66/90 NBP; PM 12:38:08 Vein Accessed - left subclavian Kevin Gallo [facility] 12:38:39 HR 54 bpm; 123/65/88 NBP; PM 12:39:37 Vein Accessed - left subclavian Kevin Gallo [facility] 12:43:36 SpO2 94%; HR 49 bpm; 121/59/85 NBP; PM 12:44:13 Incision Made To - left Kevin Gallo chest/subclavian [facility] 12:48:47 SpO2 94%; HR 52 bpm; 116/60/82 NBP; PM 12:53:41 HR 44 bpm; 110/56/78 NBP; PM 12:56:56 7Fr 13cm Prelude Snap ([facility]) Kevin Gallo [facility] 12:56:58 Peel Away Sheath Inserted Over Kevin Gallo Guidewire: [facility] 12:57:08 RA Lead Kevin Gallo [facility] 12:58:40 SpO2 93%; HR 97 bpm; 109/56/77 NBP; PM 12:59:59 RA Lead Inserted - Medtronic Kevin Gallo PM 5086-552cm [facility] 1:00:02 RA Lead Advanced to Right Kevin Gallo Ventricle - used as back up [facility] pacing lead 1:00:05 Sheath Removed - 7Fr peelaway Kevin Gallo [facility] 1:03:34 RV/RA Lead Tested Kevin Gallo [facility] 1:03:35 SpO2 94%; HR 95 bpm; 109/56/77 NBP; PM 1:05:30 LBB Lead Kevin Gallo [facility] 1:07:59 9Fr 13cm Prelude Snap ([facility]) Kevin Gallo [facility] 1:07:59 7Fr 13cm Prelude Snap ([facility]) Kevin Gallo [facility] 1:08:00 Peel Away Sheath Inserted Over Kevin Gallo Patient Name: ALIYAH MANDEL Study Date: 08/31/2024 Admission ID: [id number] Page 9 of [address] [address] PM Guidewire: [facility] 1:08:13 LBB Lead Delivery System Kevin Gallo Inserted And Advanced - [facility] Medtronic [id number] 1:08:36 SpO2 93%; HR 71 bpm; 113/60/81 NBP; PM 1:13:32 SpO2 93%; HR 232 bpm; 121/67/89 NBP; PM 1:16:34 LBB Lead Advanced to Septum - Kevin Gallo Medtronic 3830-69cm [facility] INSERTED/NOT IMPLANTED 1:18:31 SpO2 93%; HR 178 bpm; 124/68/90 NBP; PM 1:23:29 SpO2 94%; HR 276 bpm; 132/71/95 NBP; PM 1:27:00 HIS/LBB Lead Tested Kevin Gallo [facility] 1:27:02 Site 1 Kevin Gallo [facility] 1:28:01 Site 2 Kevin Gallo [facility] 1:28:39 SpO2 94%; HR 143 bpm; 118/61/86 NBP; PM 1:29:46 Site 3 Kevin Gallo [facility] 1:30:27 Site 4 Kevin Gallo [facility] 1:31:11 Site 5 Kevin Gallo [facility] 1:32:36 Site 6 Kevin Gallo [facility] 1:33:31 SpO2 95%; HR 127 bpm; 123/67/90 NBP; PM 1:33:39 Site 7 [facility] 1:35:40 Site 8 Kevin Gallo [facility] 1:36:11 Site 9 Kevin Gall[facility] 1:38:04 Site 10 Kevin Gallo [facility] 1:38:31 SpO2 94%; HR 232 bpm; 124/64/88 NBP; PM 1:38:40 Site 11 Kevin Gallo Patient Name: ALIYAH MANDEL Study Date: 08/31/2024 Admission ID: [id number] Page 10 of 42 Yogesh [address] [address] [facility] 1:40:17 Site 12 Kevin Gallo [facility] 1:40:46 Site 13 Kevin Gallo [facility] 1:43:00 Site 14 Kevin Gallo [facility] 1:43:30 SpO2 95%; HR 185 bpm; 133/68/94 NBP; PM 1:45:21 Site 15 Kevin Gallo [facility] 1:45:49 Site 16 Kevin Gallo [facility] 1:46:18 Site 17 Kevin Gallo [facility] 1:47:04 Angiogram performed to Kevin Gallo PM determine lead placement in [facility] septum 1:48:30 SpO2 95%; HR 176 bpm; 130/65/91 NBP; PM 1:53:36 SpO2 95%; HR 180 bpm; 128/64/89 NBP; PM 1:53:41 Site 18 Kevin Gallo [facility] 1:54:06 Site 19 Kevin Gallo [facility] 1:54:43 Site 20 Kevin Gallo [facility] 1:55:55 Site 21 Kevin Gallo [facility] 1:56:17 Site 22 Kevin Gallo [facility] 1:58:32 SpO2 95%; HR 105 bpm; 131/67/94 NBP; PM 1:59:00 LBB lead removed Kevin Gallo [facility] 1:59:35 LV/CS Lead Kevin Gallo [facility] 2:00:09 CS injected Kevin Gallo [facility] 2:04:10 SpO2 94%; HR 149 bpm; 130/59/85 NBP; PM 2:04:59 [place] Balloon Catheter Placed in Kevin Gallo [facility] Patient Name: ALIYAH MANDEL Study Date: 08/31/2024 Admission ID: [id number] Page 11 42 Yogesh Leavitt [address] [address] 2:05:29 7Fr 110cm Balloon Wedge Pressure Kevin Gallo Catheter (Arrow) [facility] 2:08:32 SpO2 95%; HR 180 bpm; 123/59/83 NBP; PM 2:11:36 Procedure: Venogram (04332) Kevin Gallo [facility] 2:11:42 Venogram Of CS Performed Kevin Gallo [facility] 2:11:53 [place] Balloon Catheter Kevin Gallo [facility] 2:13:33 SpO2 94%; HR 157 bpm; 121/59/85 NBP; PM 2:13:45 Runthrough .014 180cm Wire (Terumo) Kevin Gallo [facility] 2:13:47 0.014 Wire Placed In CS Kevin Gallo [facility] 2:15:45 LV/CS Lead Inserted And Kevin Gallo Advanced - Medtronic 4398-88cm OVA 2:18:33 SpO2 94%; HR 49 bpm; 116/57/80 NBP; PM 2:20:19 Fentanyl IV 25 mcg Kevin Gallo [facility] 2:20:26 Midazolam (Versed) IV 1 mg Kevin Gallo OVA 2:23:33 SpO2 94%; HR 50 bpm; 120/61/85 NBP; PM 2:24:09 Wire removed - .014 180cm Kevin Gallo Runthrough O[facility] 2:24:36 LV/CS Lead Tested Kevin Gallo OVA 2:24:39 No phrenic 1-2 Kevin Gallo OVA 2:25:35 No phrenic 2-3 Kevin Gallo [facility] 2:28:32 SpO2 94%; HR 51 bpm; 122/59/83 NBP; PM 2:32:15 RA lead pulled back from RV and Kevin Gallo advanced to appendage [facility] 2:32:46 Sheath Removed - 7Fr peKevin Gilbert [facility] 2:33:07 RA Lead Tested Kevin Gallo [facility] 2:33:32 SpO2 95%; HR 52 bpm; 121/61/86 NBP; PM Patient Name: ALIYAH MANDEL Study Date: 08/31/2024 Admission ID: [id number] Page 12 of 42 Yogesh [address] [address] 2:38:33 SpO2 94%; HR 66 bpm; 127/63/90 NBP; PM 2:39:49 Contrast: Visipaque 20 mL Kevin Gallo PM [facility] 2:41:32 RV Lead Kevin Gallo [facility] 2:42:14 Peel Away Sheath Inserted Over Kevin Gallo Guidewire: [facility] 2:42:23 9Fr 13cm Prelude Snap ([facility]) Kevin Gallo PM [facility] 2:42:32 RV Lead Inserted - Medtronic Kevin Gallo PM 6935M-55cm [facility] 2:43:31 SpO2 94%; HR 63 bpm; 126/63/88 NBP; PM 2:45:12 Sheath Removed - 9Fr Kevin Zahng PM [facility] 2:45:17 RV Lead Advanced to Right Kevin Gallo Ventricle [facility] 2:45:19 RV Lead Tested Kevin Gallo [facility] 2:47:46 Delivery System Removed - Kevin Gallo [id number] [facility] 2:48:28 SpO2 93%; HR 138 bpm; 125/62/88 NBP; PM 2:53:[address] in [address] with Kevin Gallo non-absorbable suture [facility] 2:53:29 HR 78 bpm; 121/62/85 NBP; PM 2:58:32 SpO2 95%; HR 50 bpm; 120/57/83 NBP; PM 3:03:37 HR 59 bpm; 116/58/82 NBP; PM 3:08:32 SpO2 95%; HR 48 bpm; 113/59/80 NBP; PM 3:13:33 SpO2 95%; HR 48 bpm; 113/60/82 NBP; PM 3:18:30 SpO2 95%; HR 49 bpm; 114/63/84 NBP; PM 3:23:38 SpO2 97%; HR 48 bpm; 119/58/83 NBP; PM 3:25:47 Midazolam (Versed) IV 1 mg Renée, PM Carl Shannon [facility] 3:26:15 Pocket for Device Created with Kevin Gallo Patient Name: ALIYAH MANDEL Study Date: 08/31/2024 Admission ID: [id number] Page 13 of [address] [address] PM Blunt and Cautery Dissection [facility] 3:28:31 SpO2 94%; HR 49 bpm; 119/62/83 NBP; PM 3:29:44 Pocket Irrigated With Antibiotic - Kevin Gallo PM 500mg vancomycin mixed in [facility] 500ml saline irrigation 3:33:04 Generator Connected To Leads Kevin Gallo [facility] 3:33:54 Post QRS 153msec Kevin Gallo [facility] 3:34:11 SpO2 94%; HR 59 bpm; 103/56/72 NBP; PM 3:38:28 Generator & Leads Placed In Kevin Gallo PM Pocket OVA 3:38:30 Pocket Closed Kevin Gallo [facility] 3:38:41 Report Called to Primary Nurse: ROXANNA Chinchilla V. [facility] 3:39:02 SpO2 93%; HR 59 bpm; 118/61/83 NBP; PM 3:43:30 SpO2 91%; HR 59 bpm; 118/62/85 NBP; PM 3:46:48 First count performed Kevin Gallo [facility] 3:48:30 SpO2 93%; HR 59 bpm; 119/64/86 NBP; PM 3:49:06 VAPAS Conscious Sedation Nishal, PM Assessment Performed Carl Shannon [facility] 3:53:36 SpO2 93%; HR 59 bpm; 120/61/84 NBP; PM 3:53:53 Snapshot: Review 1: Page 1 PM 3:55:34 Skin closure performed Kevin Gallo [facility] 3:55:38 Post EKG Kevin Gallo [facility] 3:55:59 Sterile Dressing Applied To Site Kevin Gallo Using - dermabond [facility] 3:58:31 SpO2 92%; HR 138 bpm; 125/65/89 NBP; PM 4:03:30 HR 132 bpm; // NBP; PM Patient Name: ALIYAH MANDEL Study Date: 08/31/2024 Admission ID: [id number] Page 14 of 42 Yogesh S. [address] [address] 4:03:31 HR 132 bpm; // NBP; PM 4:09:46 Case End/Auto Save On/Off Kevin Gallo [facility] 4:09:51 Patient Transferred to bed via Kevin Gallo hovermat; hands off defib/pacer [facility] pads removed from chest/back; cautery grounding pad removed from thigh 4:10:12 Arm Immobilized Kevin Gallo [facility] 4:10:28 Procedure: ICD insertion/replace Kevin Gallo single/dual Gen and leads (46264) [facility] 4:10:40 Patient returned to ICU Kevin Gallo [facility] Supplies Summary Time Size Web Press Jogger Item Serial Lot Part Billing Comment Name Number Number Number Code (Model) 12:56 PM [employer] 7Fr 13cm PLS-100 Prelude 7 Snap ([employer]) 1:07 PM [employer] 9Fr 13cm PLS-100 Prelude 9 Snap ([employer]) 1:07 PM [employer] 7Fr 13cm PLS-100 Prelude 7 Snap ([employer]) 2:05 PM Arrow 7Fr [id number] 110cm Balloon Wedge Pressure Catheter (Arrow) 2:13 PM Eliceo Damon 25-1011 gh .014 180cm Patient Name: ALIYAH MANDEL Study Date: 08/31/2024 Admission ID: [id number] Page 15 of 42 [place] [id number] Wire (Terumo) 2:42 PM [email or web address] 9Fr 13cm PLS-100 Prelude 9 Snap ([email or web address]) Contrast-M Time Contrast Amount (m l) Comment 2:39 PM Visipaque 20 Radiology Total Fluoro Time mins 34.0 Total Air [place] ([place]) mGy 101 Total DAP Gycm2 53932 VAPAS Pain 2 Points- Minimal or None- Pain Score 0-4 or at baseline. Nausea/Vomiting 2 Points- Minimal or None Circulatory Status 2 Points - Minimal or none Activity and Mental Status 2 Points- Oriented x 3 and has steady gait (baseline for non-ambulatory) Surical Site/Dressing 2 Points- Dry and Clean or N/A Total Score: 10 Patient Name: ALIYAH MANDEL Study Date: 08/31/2024 Admission ID: [id number] Page 16 of 42 [place] [address] Snapshots Baseline QRS 168msec Patient Name: ALIYAH MANDEL Study Date: 08/31/2024 Admission ID: [id number] Page 17 of 42 [place] [address] Site 1 Patient Name: ALIYAH MANDEL Study Date: 08/31/2024 Admission ID: [id number] Page 18 of 42 [place] [address] Site 2 Patient Name: ALIYAH MANDEL Study Date: 08/31/2024 Admission ID: [id number] Page 19 of 42 [place] [address] Site 3 Patient Name: ALIYAH MANDEL Study Date: 08/31/2024 Admission ID: [id number] Page 20 of 42 [place] [address] Site 4 Patient Name: ALIYAH MANDEL Study Date: 08/31/2024 Admission ID: [id number] Page 21 of 42 [place] [address] Site 5 Patient Name: ALIYAH MANDEL Study Date: 08/31/2024 Admission ID: [id number] Page 22 of 42 [place] [address] Site 6 Patient Name: ALIYAH MANDEL Study Date: 08/31/2024 Admission ID: [id number] Page 23 of 42 [place] [address] Site 7 Patient Name: ALIYAH MANDEL Study Date: 08/31/2024 Admission ID: [id number] Page 24 of 42 [place] [address] Site 8 Patient Name: ALIYAH MANDEL Study Date: 08/31/2024 Admission ID: [id number] Page 25 of 42 [place] [address] Site 9 Patient Name: ALIYAH MANDEL Study Date: 08/31/2024 Admission ID: [id number] Page 26 [address] 42 [place] [address] Site 10 Patient Name: ALIYAH MANDEL Study Date: 08/31/2024 Admission ID: [id number] Page 27 [address] 42 [place] [address] Site 11 Patient Name: ALIYAH MANDEL JAMIN Study Date: 08/31/2024 Admission ID: [id number] Page 28 [address] 42 [place] [address] Site 12 Patient Name: TEQUILAASHWINIALIYAHKOBE NEVILLE Study Date: 08/31/2024 Admission ID: [id number] Page 29 [address] 42 [place] [address] Site 13 Patient Name: ASHWINI MANDELKOBE NEVILLE Study Date: 08/31/2024 Admission ID: [id number] Page 30 of 42 [place] [address] Site 14 Patient Name: ALIYAH MANDEL Study Date: 08/31/2024 Admission ID: [id number] Page 31 of 42 [place] [address] Site 15 Patient Name: ALIYAH MANDEL Study Date: 08/31/2024 Admission ID: [id number] Page 32 of 42 [place] [address] Site 16 Patient Name: ALIYAH MANDEL Study Date: 08/31/2024 Admission ID: [id number] Page 33 [address] 42 [place] [address] Site 17 Patient Name: ALIYAH MANDEL Study Date: 08/31/2024 Admission ID: [id number] Page 34 [address] 42 [place] [address] Site 18 Patient Name: ALIYAH MANDEL Study Date: 08/31/2024 Admission ID: [id number] Page 35 of 42 [place] [address] Site 19 Patient Name: ALIYAH MANDEL Study Date: 08/31/2024 Admission ID: [id number] Page 36 [address] 42 [place] [address] Site 20 Patient Name: ALIYAH MANDEL Study Date: 08/31/2024 Admission ID: [id number] Page 37 of 42 [place] [address] Site 21 Patient Name: ALIYAH MANDEL Study Date: 08/31/2024 Admission ID: [id number] Page 38 [address] 42 [place] [address] Site 22 Patient Name: ALIYAH MANDEL Study Date: 08/31/2024 Admission ID: [id number] Page 39 [address] 42 [place] [address] Post QRS 153msec Patient Name: ALYIAH MANDEL Study Date: 08/31/2024 Admission ID: [id number] Page 40 of 42 Yogesh Leavitt [address] Snapshot: Review 1: Page 1 Patient Name: ALIYAH MANDEL Study Date: 08/31/2024 Admission ID: [id number] Page 41 of 42 Yogesh Leavitt [place] [address] Post EKG Electronic Signature: Electronically Signed by: Ayden Almanza MD Date: 08/31/2024 4:14:01 PM Login credentials: Ayden Almanza [email or web address] Comments: Patient Name: ALIYAH MANDEL Study Date: 08/31/2024 Admission ID: [id number] Page 42 of 42 Administrative Closure: 08/31/2024 by: DEVICE PROXY SERVICE CLINICAL Clinical Procedures Proxy Service CLINICAL,DEVICE PROXY SERVICE [facility] Aug 31, 2024 11:49 AM SEDATION NOTE: LOCAL TITLE: CO-PREPROCEDURE ASSESSMENT/CONSCIOUS SEDATION/H&P(D STANDARD TITLE: SEDATION NOTE DATE OF NOTE: AUG 31, 2024@11:49 ENTRY DATE: AUG 31, 2024@11:50:37 AUTHOR: WILL COWART EXP COSIGNER: AYDEN ALMANZA MD URGENCY: STATUS: COMPLETED [facility] Program for Clinical Assessment, Reporting, and Tracking CARDIAC IMPLANTABLE ELECTRONIC DEVICE PRE-PROCEDURE ASSESSMENT REPORT Patient: ALIYAH MANDEL SSN: [id number] : 1940 AGE: 84 Assessment for urgent CARDIAC IMPLANTABLE ELECTRONIC DEVICE procedure Assessed by: WILL COWART Date: 08/31/2024 Attending: AYDEN ALMANZA MD PRESENTATION ICD Indications: Secondary Prevention of VT/VF 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 Indications: LBBB > 150 CARDIAC RISK FACTORS Hypertension Dyslipidemia No Diabetes No history of tobacco use COMORBID CONDITIONS No Lung Disease No Sleep Apnea No Renal Disease No Peripheral Vascular Disease No Cerebrovascular Disease No LiverDisease No history of alcohol abuse No history of illicit drug use REVIEW OF SYSTEMS PHYSICAL EXAM Vital Value Unit Date/Time BP 130/ 56 mmHG 2024-08-31 08:51 HR 55 bpm 2024-08-31 08:51 Height 67 inches 2023-09-26 07:47 Weight 216.71 lbs 2024-08-31 07:24 BSA 2 m^2 2024-08-31 07:24 Neck: No carotid bruits Lungs: No rales present Cardiac: No extra heart sound present No murmur Extremities: No femoral bruits Leg Pulses: Normal left femoral pulse Normal right femoral pulse Normal left dorsalis pedis pulse Normal right dorsalis pedis pulse Normal left posterior tibial pulse Normal right posterior tibial pulse LABS Lab Value Date/Time Alert Creatinine 1.04 2024-08-31 05:45 eGFR 72 2024-08-31 05:45 Albumin 4.1 2024-08-31 05:45 Bilirubin 0.7 2024-08-31 05:45 Magnesium 2.2 2024-08-31 05:45 Potassium 4.5 2024-08-31 05:45 Sodium 140 2024-08-31 05:45 Hematocrit 38.2 2024-08-31 05:45 Hemoglobin 14.0 2024-08-31 05:45 Platelets 158 2024-08-31 05:45 INR 1 2024-08-27 06:40 PTT 29.8 2024-08-27 06:40 WBC 9.50 2024-08-31 05:45 INPATIENT MEDICATIONS CEFAZOLIN 2 GM expires: 08/31/2024 in [employer] 100 ML IVPB ONCE INFUSE OVER 60 MINUTES Instructions too long. See order details for full text. VANCOMYCIN 1000 MG expires: 08/31/2024 in ISO-OSMOTIC SOLUTION 200 ML IVPB ONCE INFUSE OVER 60 MINUTES OCOR: To be given in BELLY DUMP DRIVER/SDS ONLY on Aug@11:00 in 0.9% NACL 1000 ML expires: 08/31/2024 IV TKO@1 TKO plate conditioner to lift slab operator Indication: ICD PLACEMENT DEXTROSE 50%/WATER INJ,SOLN expires: 12/04/2024 Give: 50ML (25GM) IVP Q15MIN PRN DEXTROSE LIQUID,ORAL expires: 12/04/2024 Give: 15GM PO Q15MIN PRN GLUCAGON EMERGENCY INJ expires: 12/04/2024 Give: 1MG/1VIAL SQ Q15MIN PRN *SODIUM CHLORIDE 0.9% PF SYR INJ expires: 12/04/2024 Give: 10mL IVP Q8H CHOLECALCIFEROL (LOW DOSE VIT D3) TAB expires: 12/04/2024 Give: 25MCG PO QAM CYANOCOBALAMIN TAB expires: 12/04/2024 Give: 1000MCG PO QAM *ISOSORBIDE MONONITRATE TAB,SA expires: 12/04/2024 Give: 120MG PO QDAY LISINOPRIL TAB expires: 12/04/2024 Give: 10MG PO QAM *OMEPRAZOLE CAP,EC expires: 12/04/2024 Give: 20MG PO QAM AC *RANOLAZINE TAB,SA expires: 12/04/2024 Give: 1000MG PO BID ROSUVASTATIN TAB expires: 12/04/2024 Give: 40MG PO QHS TAMSULOSIN CAP,ORAL expires: 12/04/2024 Give: 0.4MG PO QDAY *NITROGLYCERIN TAB,SUBLINGUAL expires: 12/04/2024 Give: 0.4MG SL Q5MIN PRN SPIRONOLACTONE TAB expires: 12/04/2024 Give: 25MG PO QAM AMIODARONE TAB expires: 12/04/2024 Give: 400MG PO QDAY METOPROLOL SUCCINATE TAB,SA expires: 12/04/2024 Give: 25MG PO QDAY OUTPATIENT MEDICATIONS METOPROLOL SUCCINATE 50MG SA TAB [...] FIRST DOSE CALL 9-1-1. MAY TAKE 2 CLOPIDOGREL BISULFATE 75MG TAB Qty: 90 for 90 days expires: 07/28/2025; last filled: 10/18/2024; active/susp Sig: TAKE ONE TABLET BY MOUTH ONCE A DAY TO PREVENT BLOOD CLOTS Non-VA ASPIRIN 81MG EC TAB 81MG MOUTH ONCE A DAY MEDICATION REVIEW AND RECONCILIATION Medications (prescriptions and over the counter) reviewed with the patient and reconciled in the medical record. ALLERGIES/ADVERSE REACTIONS No known allergies SEDATION/CONSENT CodeStatus: Full Code Anesthesia: consult not needed Sedation by Cardiology Mallampati Class 3: only soft palate visible Physical status assessment (ASA class): 3 - Patient with severe systemic disease with functional limitation that is not life threatening NPO for procedure was explained to patient/surrogate. The risks, benefits, and alternatives of the procedure and sedation/analgesia were explained to and discussed with the patient/surrogate in detail. All questions have been answered and the patient/surrogate understands the potential risks and benefits and consents to the procedure and the plan for sedation. PROCEDURE PLAN CIED New Implants: 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-D SUMMARY [id number] [facility]-CIED:[id number] 08/31/2024 /santiago/ WILL COWART FELLOW-CO Signed: 08/31/2024 11:57 // AYDEN ALMANZA MD PHYSICIAN Cosigned: 08/31/2024 11:58 WILL COWART MO [facility]
--- OUTSIDE RECORDS SUMMARY | 2024-09-25 16:06 | XMS_ITS | Encounter Summary ---
Author Name [facility] Organization [facility] Address [address] [place] [address] Care Team Providers Care Soa Architect Name Role Phone ABIGAIL PERALTA Primary Care [...] PART A Feb 07, 2007 PART A [id number] [phone] ALIYAH MANDEL PATIENT MEDICARE (WNR) MEDICARE (M) PART A Feb 07, 2007 PART A [id number] [phone] ALIYAH MANDEL PATIENT Selected Encounter This section includes the information on record at MD for the Encounter. Date/Time Encounter Type Encounter Description Reason Provider Source Mar 11, 2024 02:45 PM QNHP OL DIG ASSMT&MGMT 5-10 [facility]ICAL [facility] ICD-10-CM K14.8 Other diseases of tongue SHERIN JASSO Encounter Template Text not used by [facility] Assessments - Encounter Diagnoses This section includes the primary and secondary diagnoses documented for the Encounter. Date/Time Primary/Secondary Diagnosis Diagnosis Name Provider Source Mar 11, 2024 02:52 PM PRIMARY Other diseases of tongue SHERIN JASSOIP [facility] Plan of Treatment: Future Appointments (+ 6 months) and Future Tests (+/- 45 days) The Plan of Treatment section includes future care activities for the patient from all MD treatmentfacilities. This section includes future appointments and future orders which are active, pending or scheduled. Future Appointments This section includes appointments that were scheduled to occur 6 months from the date of the Encounter, up to a maximum of 20 appointments. The data comes from all MD treatment facilities. Appointment Date/Time Appointment Type Appointme nt Facility Name Mar 12, 2024 09:00 AM [facility] Mar 29, 2024 08:00 AM [facility] May 03, 2024 10:40 AM [facility] - SURGERY [facility] May 10, 2024 09:00 AM [facility] May 24, 2024 02:00 PM [facility] Jun 21, 2024 01:30 PM AMBULATORY - NONE [address] [facility] Jun 21, 2024 02:00 PM AMBULATORY - NONE [address] [facility] Jun 21, 2024 03:00 PM AMBULATORY - PSYCHIATRY [facility] Jul 29, 2024 01:00 PM [facility] Jul 29, 2024 02:00 PM [facility] Aug 10, 2024 08:00 AM [facility] Aug 11, 2024 11:00 AM [facility]ORY - NONE [facility] Aug 27, 2024 06:28 AM [facility] Sep 02, 2024 01:00 PM AMBULATORY - NONE [address] [facility] Lab Results: +/- 30 days of the encounter This section includes the Chemistry and Hematology Lab Results on record with MD for the patient. Radiology Reports and Pathology Reports are provided separately, in subsequent sections. Lab Results This section contains the Chemistry/Hematology Results that were resulted 30 days before or 30 daysafter the date of the Encounter. Date/Time Source Result Type Result - Unit Interpretation Reference Range Specimen Type Comment Feb 11, 2024 10:36 AM [facility] VITAMIN B12 SERUM Specimen Type: SERUM No comment entered. Ordering Provider: ABIGAIL PERALTA Report Released Date/Time: Aug 26, 2023 02:34 PM Reporting Lab: [address] [address] Performing Lab: [address] [address] VITAMIN B12 285 pg/mL [phone] Feb 11, 2024 10:36 AM [facility] CMP-NONFASTING (CO) PLASMA Specimen Type: PLAS MA No comment entered. Ordering Provider: ABIGAIL PERALTA Report Released Date/Time: Aug 26, 2023 02:34 PM Reporting Lab: [address] [address] Performing Lab: [address] [address] *CREATININE 1.05 mg/dL 0.7-1.3 UREA NITROGEN mg/dL [...] 51 U/L 40-150 EGFR (CKD-EPI 2020) 71 Social History: Smoking Status (Most current) and Tobacco Use (All prior to encounter date) This section includes the most current, and the historical, smoking and tobacco- related health factors from the MD facility where the Encounter took place. Current Smoking Status This section includes the most current smoking, or tobacco-related health factor, from the MD facility where the Encounter took place. Date/Time Current Smoking Status Comment Blanco cameron Apr 30, 2023 01:00 PM VA-TOBACCO FORMER USER [facility] Tobacco Use History This section includes a history of the smoking, or tobacco-related health factors, that were collected on or before the date of the Encounter. The data comes from the MD facility where the Encounter took place. Date/Time Smoking Status/Tobacco Use Comment F acility Apr 30, 2023 01:00 PM VA-TOBACCO QUIT 15 YRS OR MORE [facility] Apr 04, 2022 09:15 AM VA-TOBACCO FORMER USER [facility] Apr 04, 2022 09:15 AM VA-TOBACCO QUIT 15 YRS OR MORE [facility] Jul 18, 2021 10:13 AM INPT TOBACCO SCREENED NEGATIVE [facility] Apr 27, 2021 07:00 AM INPT TOBACCO SCREENED NEGATIVE [facility] October 31, 2020 02:30 PM INPT TOBACCO SCREENED NEGATIVE [facility] October 08, 2020 10:22 AM INPT TOBACCO SCREENED NEGATIVE [facility] October 07, 2020 07:22 AM VA-TOBACCO FORMER USER [facility] Sep 30, 2020 11:06 AM INPT TOBACCO SCREENED NEGATIVE [facility] Sep 29, 2020 04:05 PM VA-TOBACCO NEVER USED [facility] Jan 17, 2020 10:21 AM VA-TOBACCO FORMER USER [facility] Jan 17, 2020 10:21 AM VA-TOBACCO QUIT 15 YRS OR MORE [facility] Advance Directives: All historical and current Section Date Range: From patient's date of to the date document was created. This section includes ALL of a patient's completed or amended MD Advance and Rescinded Directives. The entries below indicate that a directive exists for the patient, but an actual copy is not included with this document. The data comes from all [facility]. Date Advance Directives Provider Source October 22, 2022 ADVANCE DIRECTIVE DISCUSSION ARGELIA CAHVEZ [facility] Apr 04, 2022 ADVANCE DIRECTIVE DISCUSSION RAY ROQUE [facility] Sep 30, 2020 ADVANCE DIRECTIVE DISCUSSION ILYA BROWN [facility] Jul 26, 2020 ADVANCE DIRECTIVE DISCUSSION FABY TAMEZ [facility] Apr 17, 2020 ADVANCE DIRECTIVE DISCUSSION LINETTE RAMIREZ [facility] Jan 17, 2020 ADVANCE DIRECTIVE DISCUSSION LINETTE RAMIREZ [facility] Feb 24, 2009 ADVANCE DIRECTIVE HECTOR [place] [facility] Pathology Reports: +/- 30 days of [...] the Encounter. The data comes from all MD treatment facilities. Date/Time Pathology Report Provider Source Mar 17, 2024 08:08 AM LR SURGICAL PATHOL OGY REPORT: LOCAL [...] PATHOLOGY REPORT Accession No. [id number] - - - - - - - [...] PATHOLOGY REPORT Accession No. [id number] - - - - - - - - - - - - - - - - - - - - - - - - - - - - - - - - - - - - - - - - SEE [employer] FOR SCANNED REPORT /santiago/ JOANA HARRIS DIRECTOR OF PATHOLOGY Signed Mar 17, 2024@08:08 Performing Laboratory: Surgical Pathology Report Performed By: Sophia Search Meche MAHAN [CLIA# [id number]] [address] [place] [address] $FTR - - - - - - [...] - - ALIYAH MANDEL STANDARD FORM 515 ID:[id number] SEX:M :1940 AGE: 84 LOC:*DENTAL PCP: Abigail Peralta /santiago/ JOANA HARRIS DIRECTOR OF PATHOLOGY Signed: 03/17/2024 08:08 JOANA HARRIS [facility] Encounter Notes: All associated encounter notes This section contains the clinical notes associated to the Encounter. Date/Time Encounter Note(s) Provider Source Mar 11, 2024 02:45 PM PHARMACY CONSULT: LOCAL TITLE: CO-NONFORMULARY/PADR CONSULT NOTE (D) STANDARD TITLE: PHARMACY CONSULT DATE OF NOTE: MAR 11, 2024@14:45 ENTRY DATE: MAR 11, 2024@14:45:39 AUTHOR: SHERIN JASSO EXP COSIGNER: URGENCY: STATUS: COMPLETED The medical record has been reviewed with regard to this prior authorization drug request. Medication requested: COMPOUND PRESCRIPTION Medication indication: Hemostatic agent Medical history relevant to this request: 84 year old with tongue lesions and request for biopsy to evaluate. on aspirin and clopidogrel for CAD with multiple stents. No recent PCI or stent placement found in chart. Oral surgeon requesting aminocaproic acid mouth rinse to aid in hemostasis after biopsy. The request is approved - No formulary-preferred alternative Time Spent: 8 minutes /santiago/ SHERIN JASSO PharmD, BCPS CLINICAL PHARMACY PRACTITIONER-CRITICAL CARE/AMS Signed: 03/11/2024 14:52 SHERIN JASSO [facility]
--- OUTSIDE RECORDS SUMMARY | 2024-09-25 16:06 | XMS_ITS | Encounter Summary ---
Author Name [facility] [place] [facility] [place] Organization [facility] [place] Address [address] [place] [address] Care Team Providers Care Site Administrator Name Role Phone HENRIABIGAIL GARCIA Primary Care Provider Unavailabl e Insurance Providers: [...] PART A Feb 07, 2007 PART A [id number] [phone] ALIYAH COREY PATIENT MEDICARE (WNR) MEDICARE (M) PART A Feb 07, 2007 PART A [id number] [phone] ASHWINI COREYALD PATIENT Selected Encounter This section includes the information on record at [place] for the Encounter. Date/Time Encounter Type Encounter Description Reason Provider Source Jul 29, 2024 02:00 PM OFFICE O/P EST LOW 20 MIN CARDIOLOGY ICD-10-CM I25.10 Athscl heart disease of [place] coronary artery w/o ang pctFRANCESCA Elliott IHToni Encounter Template Text not used by [place] Assessments - Encounter Diagnoses This section includes the primary and secondary diagnoses documented for the Encounter. Date/Time Primary/Secondary Diagnosis Diagnosis Name Provider Source Jul 29, 2024 03:11 PM PRIMARY Athscl heart disease of [place] coronary artery w/o ang pctrs FRANCESCA MOREAU [facility] Jul 29, 2024 03:11 PM SECONDARY Nonrheumatic aortic (valve) insufficiency FRANCESCA MOREAU [facility] Plan of Treatment: Future Appointments (+ 6 months) and Future Tests (+/- 45 days) The Plan of Treatment section includes future care activities for the patient [facility] [place] [facility] This section includes future appointments and future orders which are active, pending or scheduled. Future Appointments This section includes appointments that were scheduled to occur 6 months from the date of the Encounter, up to a maximum of 20 appointments. The data comes from all [place] treatment facilities. Appointment Date/Time Appointment Type Appointme nt Facility Name Aug 10, 2024 08:00 AM AMBULATORY - MEDICINE [facility] Aug 11, 2024 11:00 AM AMBULATORY - NONE [facility] Aug 27, 2024 06:28 AM AMBULATORY - MEDICINE [facility] Sep 02, 2024 01:00 PM AMBULATORY - NONE [address] [facility] Sep 13, 2024 02:00 PM AMBULATORY - MEDICINE [facility] October 08, 2024 10:30 AM AMBULATORY - MEDICINE [facility] October 12, 2024 09:00 AM AMBULATORY - NONE [address] [facility] October 12, 2024 10:00 AM AMBULATORY - NONE [address] [facility] October 25, 2024 02:00 PM AMBULATORY - SURGERY [facility] Nov 15, 2024 02:00 PM AMBULATORY - MEDICINE [facility] Dec 13, 2024 10:00 AM AMBULATORY - MEDICINE [facility] Dec 21, 2024 10:30 AM AMBULATORY - MEDICINE [facility] Active, Pending, and Scheduled Orders This section includes a listing of several types of active, pending, and scheduled orders, including clinic medications orders, diagnostic test orders, procedure orders and consult orders; where the start date of the order is 45 days before the date of the Encounter or 45 days after the date of theEncounter. The data comes from all [place] treatment facilities. Test Date/Time Test Type Test Details Facility Name Jul 29, 2024 02:19 PM Procedure Order CP CO-ECHO FUTURE CARE ([place]) CP CO-ECHO FUTURE CARE-[id number] Proc [employer] [facility] Jul 29, 2024 02:19 PM Procedure Order EKG OUTPAT IENT-CO EKG Needed on: Jul Urgency: ROUTINE Diagnosis/Reason: Ischemia (125.9) [facility] Aug 31, 2024 12:48 AM Laboratory - Blood Bank Order TYPE & SCREEN - LAB BLOOD,PINK/PURPLE (7-9ML) WC [facility] Lab Results: +/- 30 days of [...] Unit Interpretation Reference Range Specimen Type Comment Aug 28, 2024 04:50 AM [facility] T4 FREE SERUM Specimen Type: SERUM No comment entered. Ordering Provider: DINAH BARRIOS Report Released Date/Time: Aug 27, 2024 03:47 PM Reporting Lab: [address] [phone] Performing Lab: [address] [phone] T4 FREE 0.8 ng/dL 0.7-1.48 Aug 28, 2024 04:50 AM [facility] TSH SERUM Specimen Type: SERUM No comment entered. Ordering Provider: LARRY BARRIOS Report Released Date/Time: Aug 27, 2024 03:47 PM Reporting Lab: [address] [phone] Performing Lab: [address] [phone] *TSH 1.66 u[IU]/mL 0.47-5.00 Aug 28, 2024 04:50 AM [facility] CMP-NONFASTING ([place]) PLASMA Specimen Type: PLASMA No comment entered. Ordering Provider: LUIS YANES Report Released Date/Time: Aug 28, 2024 03:03 AM Reporting Lab: [address] [phone] Performing Lab: [address] [phone] *CREATININE 0.87 mg/dL 0.70-1.30 UREA NITROGEN mg/dL [...] 2020) 86 Aug 28, 2024 04:50 AM [facility] CBC & DIFF BLOOD Specimen Type: BLOOD No comment entered. Ordering Provider: LUIS YANES Report Released Date/Time: Aug 28, 2024 03:03 AM Reporting Lab: [address] [phone] Performing Lab: [address] [phone] WBC 9.20 10*3/uL 3.6-11.2 RBC 4.23 10*6/uL [...] % 0.5 Aug 27, 2024 02:14 PM [facility] ACT.CLOTTING TIME BLOOD Specimen Ty pe: BLOOD No comment entered. Ordering Provider: JEROME DOTY Report Released Date/Time: Aug 27, 2024 02:44 PM Reporting Lab: [address] [phone] Performing Lab: [address] [phone] ACT.CLOTTING TIME 153 s H [id number] Aug 27, 2024 11:30 AM [facility] hsTROP-CO PLASMA Specimen Type: PLASMA Comment: TROP-T-HS Called to: Velvet Bartlett RN at: 1213 on: 08/27/24 by: Jasvir Cunningham Result read back to comply with Joint Commission Ordering Provider: LARRY BARRIOS Report Released Date/Time: Aug 27, 2024 09:20 AM Reporting Lab: [address] [phone] Performing Lab: [place] [phone] hsTROP-CO 1017 HH See Interpretation Aug 27, 2024 08:55 AM [facility] MRSA SURVL NARES DNA NARES Specimen Type: NARES No comment entered. Ordering Provider: JEROME DOTY Report Released Date/Time: Aug 27, 2024 08:46 AM Reporting Lab: [address] [phone] Performing Lab: [place] [phone] MRSA SURVL NARES DNA Negative Negative Aug 27, 2024 08:20 AM [facility] URINALYSIS (ZOIL[place],EK) URINE Spec imen Type: URINE Comment: Microscopic not indicated Ordering Provider: RYAN HALL Report Released Date/Time: Aug 27, 2024 06:51 AM Reporting Lab: [address] Performing Lab: [address] [phone] *URINE COLOR Light-Yellow *URINE APPEARANCE Clear Clear *URINE PROTEIN Negative mg/dL Negative-T race *URINE LEUKOCYTE Negative Negative *URINE NITRITE Negative Negative *URINE BLOOD Negative Negative *URINE GLUCOSE Negative mg/dL Negative *URINE KETONES Negative mg/dL Negative *URINE PH 7.0 5.0-8.0 *URINE SPECIFIC GRAVITY 1.011 1.005-1. 030 *URINE BILIRUBIN Negative Negative *URINE UROBILINOGEN Normal mg/dL Normal Aug 27, 2024 06:40 AM [facility] PT/INR PLASMA Specimen Type: PLASMA No comment entered. Ordering Provider: RYAN HALL Report Released Date/Time: Aug 27, 2024 06:51 AM Reporting Lab: [address] Performing Lab: [place] [phone] *INR 1.0 {INR} *PT 11.4 s 9.4-12.5 Aug 27, 2024 06:40 AM [facility] APTT PLASMA Specimen Type: PLASMA No comment entered. Ordering Provider: RYAN HALL Report Released Date/Time: Aug 27, 2024 06:51 AM Reporting Lab: [address] Performing Lab: [place] [phone] APTT 29.8 s 26.7-39.9 Aug 27, 2024 06:40 AM [facility] COMPREHENSIVE METABOLIC PANEL PLASMA Specimen Type: PLASMA No comment entered. Ordering Provider: RYAN HALL Report Released Date/Time: Aug 27, 2024 06:51 AM Reporting Lab: [address] Performing Lab: [place] [phone] *CREATININE 1.14 mg/dL 0.70-1.30 UREA NITROGEN mg/dL [...] 2020) 64 Aug 27, 2024 06:40 AM [facility] hsTROP-CO PLASMA Specimen Type: PLASMA No comment entered. Ordering Provider: RYAN HALL Report Released Date/Time: Aug 27, 2024 06:51 AM Reporting Lab: [address] [phone] Performing Lab: [place] [phone] hsTROP-CO 15 See Interpretation Aug 27, 2024 06:40 AM [facility] CBC & DIFF BLOOD Specimen Type: BLOOD No comment entered. Ordering Provider: RYAN HALL Report Released Date/Time: Aug 27, 2024 06:51 AM Reporting Lab: [address] [phone] Performing Lab: [address] [phone] WBC 15.70 10*3/uL H 3.6-11.2 RBC 4.80 [...] 0.00 -0.20 Aug 27, 2024 06:40 AM [facility] NTproBNP ([place]) PLASMA Specimen Typ e: PLASMA No comment entered. Ordering Provider: RYAN HALL Report Released Date/Time: Aug 27, 2024 06:51 AM Reporting Lab: [place] [phone] Performing Lab: [place] [phone] NTproBNP ([place]) 410 pg/mL -See Interpre tation Aug 27, 2024 06:40 AM [facility] PATHOLOGIST REVIEW BLOOD Specimen T ype: BLOOD Comment: Reviewed by Dr. Chepe Yu: Reactive Lymphocytes. Ordering Provider: RYAN HALL Report Released Date/Time: Aug 27, 2024 06:51 AM Reporting Lab: [place] [phone] Performing Lab: [place] [phone] PATHOLOGIST REVIEW comment Aug 27, 2024 06:40 AM [facility] ANTI-Xa ([place]) BLOOD Specimen Type: BLOOD Comment: Critical Values: Unfractionated Heparin: > 1.0 IU/mL For Low Molecular Weight Heparin reference ranges contact lab. Ordering Provider: RYAN HALL Report Released Date/Time: Aug 27, 2024 07:24 AM Reporting Lab: [place] [phone] Performing Lab: [place] [phone] ANTI-Xa ([place]) <0.04 [IU]/mL 0.3-0.7 Vital Signs: All taken on the encounter date This section contains inpatient and outpatient Vital Signs collected on the date of the Encounter. Date/Time Temperature Pulse Blood Pressure Respiratory Rate SP02 Pain Height Weight Body Mass Index Source Jul 29, 2024 01:45 PM 97.9 49 114/66 20 95 0 206.4 32 [facility] Social History: Smoking Status (Most current) and Tobacco Use (All prior to encounter date) This section includes the most current, and the historical, smoking and tobacco- related health factors from the [place] facility where the Encounter took place. Current Smoking Status This section includes the most current smoking, or tobacco-related health factor, from the [place] facility where the Encounter took place. Date/Time Current Smoking Status Comment Blanco ity Apr 30, 2023 01:00 PM VA-TOBACCO FORMER USER [facility] Tobacco Use History This section includes a history of the smoking, or tobacco-related health factors, that were collected on or before the date of the Encounter. The data comes from the [place] facility where the Encounter took place. Date/Time Smoking Status/Tobacco Use Comment F acility Apr 30, 2023 01:00 PM VA-TOBACCO QUIT 15 YRS OR MORE [facility] Apr 04, 2022 09:15 AM VA-TOBACCO FORMER USER [facility] Apr 04, 2022 09:15 AM VA-TOBACCO QUIT 15 YRS OR MORE [facility] Jul 18, 2021 10:13 AM INPT TOBACCO SCREENED NEGATIVE [facility] Apr 27, 2021 07:00 AM INPT TOBACCO SCREENED NEGATIVE [facility] October 31, 2020 02:30 PM INPT TOBACCO SCREENED NEGATIVE [facility] October 08, 2020 10:22 AM INPT TOBACCO SCREENED NEGATIVE [facility] October 07, 2020 07:22 AM VA-TOBACCO FORMER USER [facility] Sep 30, 2020 11:06 AM INPT TOBACCO SCREENED NEGATIVE [facility] Sep 29, 2020 04:05 PM VA-TOBACCO NEVER USED [facility] Jan 17, 2020 10:21 AM VA-TOBACCO FORMER USER [facility] Jan 17, 2020 10:21 AM VA-TOBACCO QUIT 15 YRS OR MORE [facility] Advance Directives: All historical and current Section Date Range: From patient's date of to the date document was created. This section includes ALL of a patient's completed or amended [place] Advance and Rescinded Directives. The entries below indicate that a directive exists for the patient, but an actual copy is not included with this document. The data comes from all [facility]. Date Advance Directives Provider Source October 22, 2022 ADVANCE DIRECTIVE DISCUSSION ARGELIA CHAVEZ [place] Apr 04, 2022 ADVANCE DIRECTIVE DISCUSSION RAY ROQUE [facility] Sep 30, 2020 ADVANCE DIRECTIVE DISCUSSION ILYA BROWN [facility] Jul 26, 2020 ADVANCE DIRECTIVE DISCUSSION FABY TAMEZ JERAD [facility] Apr 17, 2020 ADVANCE DIRECTIVE DISCUSSION LINETTE RAMIREZ [facility] Jan 17, 2020 ADVANCE DIRECTIVE DISCUSSION ASHLEYLINETTE [facility] Feb 24, 2009 ADVANCE DIRECTIVE HECTOR GUPTA [facility] Radiology Reports: +/- 30 days of [...] the Encounter. The data comes from all [place] treatment facilities. Date/Time Radiology Report Provider Source Aug 27, 2024 06:51 AM CHEST 1 VIEW: ALIYAH COREY JAMIN [id number] -[id number] M Exm Date: AUG 27, 2024@06:51 Req Phys: RYAN HALL Pat Loc: CO-ED (Req'g Loc) Img Loc: CO-DOG RAISER Service: [place] [address] (Case [id number] COMPLETE) CHEST 1 VIEW (RAD Detailed) CPT:45963 Proc Modifiers : PORTABLE Reason for Study: vtach Clinical History: If ordering Portable X-Ray call Tech at [id number] for prompt response Report Status: Verified Date Reported: AUG 27, 2024 Date Verified: AUG 27, 2024 Station Attendant E-Sig:/ES/Aubrie Garcia MD PhD Report: History: Ventricular tachycardia. Single view of the chest. Comparison: 05/20/2023. Findings: Lungs are clear. Mild cardiomegaly without pulmonary edema. Soft tissues are unremarkable. Atherosclerosis. Osseous structures demonstrate degenerative changes. Impression: Mild cardiomegaly without pulmonary edema. READING PHYSICIAN: Aubrie Garcia 08/27/2024 7:29 AM Primary Diagnostic Code: NO ALERT REQUIRED Primary Interpreting Staff: Aubrie Garcia MD PhD, CHIEF, CLINICAL SUPPORT (Station Attendant) /MDT AUBRIE GARCIA [facility] Encounter Notes: All associated encounter notes This section contains the clinical notes associated to the Encounter. Date/Time Encounter Note(s) Provider Source Jul 29, 2024 03:11 PM PHYSICIAN LETTERS: LOCAL TITLE: CO-CARDIOLOGY TEST/LAB RESULTS LETTER (D) STANDARD TITLE: PHYSICIAN LETTERS DATE OF NOTE: JUL 29, 2024@15:11 ENTRY DATE: JUL 29, 2024@15:11:34 AUTHOR: SHANELLE MOREAU EXP COSIGNER: URGENCY: STATUS: COMPLETED [facility]ogesh KhrisMadonna [facility] Department of Cardiology Services [address] [place], [place] [id number] or , ext. [phone] ALIYAH COREY [address] [place], [place], [address] Date: Jul Dear ALIYAH COREY Your test results are back and are noted below. Please continue your medications as previously prescribed. Echocardiography: The ultrasound of your heart is unchanged the heart muscle strength remains at the low limits of normal to mild depressed and hte aortic valve has mild-moderate leakage both are unchanged from your echocardiogram one year ago. I am pleased with the results no changes are needed. If you have any questions regarding your test results, please call the Cardiology Services at . If you develop sudden or severe symptoms, please seek medical care at the nearest emergency department or call 911. Sincerely, SHANELLE MOREAU RETAIL ZONE SPECIALIST Cardiology Service: or , ext [phone] SHANELLE MOREAU [facility] Jul 29, 2024 02:05 PM CARDIOLOGY NURSE PRACTITIONER NOTE: LOCAL TITLE: CO-CARDIOLOGY CLINIC PERSONNEL MONITOR NOTE STANDARD TITLE: CARDIOLOGY NURSE PRACTITIONER NOTE DATE OF NOTE: JUL 29, 2024@14:05 ENTRY DATE: JUL 28, 2024@08:14:28 AUTHOR: SHANELLE MOREAU EXP COSIGNER: URGENCY: STATUS: COMPLETED JUL 29, 2024 ALIYAH COREY [id number] 82 [employer] CO-BTW PACT *PARMINDER* PCP: ABIGAIL ÁLVAREZ REASON FOR VISIT F/U CAD and Aortic Insufficiency HISTORY OF PRESENT ILLNESS Mr. Aliyah Corey is a 84yo male with PMHx CAD with multiple stents (mLAD, RCA x3, PDA, diag 1) and [employer] RPLS, chronic stable angina, hypertension, hyperlipidemia, LV dysfunction, LBBB, mild to moderate aortic insufficiency, mild sleep apnea, malignant melanoma of skin who presents for routine cardiology followup. Since last seen he states he is doing well. He has had minimal chest pain. He has had only 2-3 episodes of chest pain that was relieved with SL nitroglycerin which is very stable in pattern. It typically occurs only with heavy exertion. It states the Ranolazine has helped significantly. He can do moderate activity with no problems. He denies any shortness of breath. He denies any palpitations, lightheadedness or LOC events. He reports good medication compliance. Functional Capacity: Stays very active. He recently was able to shovel snow. PAST MEDICAL HISTORY Active Problem Coronary arteriosclerosis I25.10 01/17/2020 HENRI,ABIGAIL NICOLE History of placement of stent for coronary ar 01/17/2020 HENRI,ABIGAIL NICOLE Benign essential hypertension I10. 01/17/2020 HENRI,ABIGAIL NICOLE Benign prostatic hypertrophy with outflow obs 01/17/2020 HENRI,ABIGAIL NICOLE H/O: angina pectoris Z86.79 01/17/2020 HENRI,ABIGAIL NICOLE Hyperlipidemia E78.5 01/17/2020 HENRI,ABIGAIL NICOLE Aortic valve regurgitation I35.1 09/11/2020 [place] [facility]ORY ZAIDA Current drinker Z72.89 04/04/2022 HENRI,ABIGAIL NICOLE Hiatal hernia K44.9 04/04/2022 HENRI,DENNYAB MUELLERQUIANA GERD - Gastro-Esophageal Reflux Disease (SCT 04/04/2022 HENRI,RUB HASQUIANA Constipation K59.00 04/04/2022 HENRI,RUB HASQUIANA Exposure to potentially hazardous substance Z 07/08/2023 HENRI,RUB HASQUIANA Difficulty in Walking, not elsewhere classifi 02/17/2024 HENRI,RUBAB HASAN PAST SURGICAL HISTORY JUN 12, 1992@10:00 Proc: L[employer]COR JUN 21, 1992@09:00 Proc: [facility] APR 27, 2021@11:37 Proc: WIDE LOCAL EXCISION OF UPPER BACK MELANOMA WITH SNETINAL LYMPH NOSE BIOPSY AUG 18, 2023@13:46 Proc: RIGHT PHACOEMULSIFICATION AND ASPIRATION SEP 26, 2023@08:59 Proc: PHACOEMULSIFICATION & ASPIRATION / LEFT SOCIAL HISTORY Marital Status: 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 dose and schedule): NONE New medications TODAY: NONE Discontinued medications TODAY: NONE Active Inpatient Medications (excluding Supplies): No Medications Found Active Outpatient Medications (including Supplies): Active Outpatient Medications Status ========= 1) AMLODIPINE BESYLATE 10MG TAB TAKE ONE TABLET BY MOUTH ACTIVE EVERY MORNING FOR HEART/BLOOD PRESSURE 2) CARBOXYMETHYLCELLULOSE 0.5%(PF)OP JOSE UD INSTILL 1 ACTIVE DROP IN BOTH EYES FOUR TIMES A DAY FOR DRY EYES 3) CHOLECALCIF 25MCG (D3-1,000UNIT) TAB TAKE ONE TABLET ACTIVE BY MOUTH EVERY MORNING FOR VITAMIN D DEFICIENCY 4) CYANOCOBALAMIN 1000MCG TAB TAKE ONE TABLET [...] A DAY FOR PROSTATE TAKE WITH FOOD Pending Outpatient Medications Status ========= 1) CLOPIDOGREL BISULFATE 75MG TAB TAKE ONE TABLET BY PENDING MOUTH ONCE A DAY TO PREVENT BLOOD CLOTS Active Non-VA Medications Status ========= 1) Non-VA ASPIRIN 81MG EC TAB 81MG MOUTH ONCE A DAY ACTIVE 14 Total Medications ALLERGIES = Patient has answered NKA = REVIEW OF SYSTEMS = 10-point ROS performed, negative except as noted above in chief complaint and history of present illness. = PHYSICAL EXAMINATION = Measurement DT PULSE BP RESP TEMP POx F(C) (L/MIN)(%) 07/29/2024 13:45 49 114/66 20 97.9(36.6) 95 06/21/2024 14:13 52 125/68 06/21/2024 14:12 49 135/73 98.1(36.7) 94 05/10/2024 09:04 98.6(37.0) 03/29/2024 08:11 98(36.7) 03/12/2024 09:16 46 100/53 98(36.7) 94 03/02/2024 13:07 98.2(36.8) Measurement DT WEIGHT LB(KG)[BMI] 07/29/2024 13:45 206.4(93.62)[32*] 06/21/2024 14:13 06/21/2024 14:12 204(92.53)[32*] 05/10/2024 09:04 03/29/2024 08:11 03/12/2024 09:16 03/02/2024 13:07 GENERAL: Alert and awake, cooperative, adequately nourished. SKIN: No rash or lesions. noted. HEAD: Atraumatic, normocephalic. EYES: PERRLA, EOMI. Sclera normal in color EARS: Hearing is intact. NECK: No JVD.No carotid bruits. Trachea midline. THROAT: Oropharynx is moist, CVS: Regular rate and rhythm. S1/S2 normal. No murmurs, clicks, gallops or rubs RESPIRATORY: Breath sounds are clear to auscultation b/l. ABDOMEN: Soft, nontender, non-distended. Bowel sounds are present in all 4 quadrants. EXTREMITIES: No cyanosis, clubbing, or edema. NEURO: Alert and oriented to person, time, place, and circumstance. No focal deficits PSYCH: Appropriate mood and affect. normal. === LABS === Provider: ABIGAIL ÁLVAREZ Specimen: PLASMA. [facility] [id number] Specimen Collection Date: Jun 21, 2024@13:21 Test name Result units Ref. range Site Code EGFR (CKD-EPI 2020) 64 [6010] Eval: eGFR unit of report: mL/min/1.73 sq.m SODIUM 137 mEq/L 136 - 145 [6010] POTASSIUM 4.4 mEq/L 3.5 - 5.0 [6010] CHLORIDE 107 mEq/L 98 - 107 [6010] CO2 21 L mEq/L 22 - 31 [6010] UREA NITROGEN mg/dL 18 mg/dL 9 - 25 [6010] *CREATININE 1.15 mg/dL 0.7 - 1.3 [6010] GLUCOSE 99 mg/dL 72 - 99 [6010] Eval: Fasting Blood Sugar Interpretation effective 10/10/03: Eval: FPG <100 mg/dL = Normal Fasting Glucose Eval: FPG 100 - 125 mg/dL = IFG (Impaired Fasting Glucose) Eval: FPG >126 mg/dL = Provisional Diagnosis of Diabetes Eval: (Reference: [place] [employer]'s Expert Committee Eval: on the Diagnosis and Classification of Diabetes Mellitus 2002) Eval: Eval: (Reference range prior to 10/10/03: 72-109 mg/dL) CALCIUM (mg/dL) 8.9 mg/dL 8.4 - 10.4 [6010] ASPARTATE TRANSAMINASE 11 U/L 5 - 34 [6010] ALANINE AMINOTRANSFERASE 11 U/L 8 - 40 [6010] ALKALINE PHOSPHATASE 62 U/L 40 - 150 [6010] TOTAL BILIRUBIN 0.5 mg/dL 0.2 - 1.2 [6010] PROTEIN,TOTAL 6.8 g/dL 6.0 - 8.6 [6010] ALBUMIN 4.1 g/dL 3.4 - 5.0 [6010] Provider: ABIGAIL ÁLVAREZ Specimen: PLASMA. [facility] [id number] Specimen Collection Date: Aug 22, 2023@09:44 Test name Result units Ref. range Site Code EGFR (CKD-EPI 2020) 64 [6010] Eval: eGFR unit of report: mL/min/1.73 sq.m SODIUM 137 mEq/L 136 - 145 [6010] POTASSIUM 4.2 mEq/L 3.5 - 5.0 [6010] CHLORIDE 108 H mEq/L 98 - 107 [6010] CO2 23 mEq/L 22 - 31 [6010] UREA NITROGEN mg/dL 16 mg/dL 9 - 25 [6010] *CREATININE 1.15 mg/dL 0.7 - 1.3 [6010] GLUCOSE 139 H mg/dL 72 - 99 [6010] Eval: Fasting Blood Sugar Interpretation effective 10/10/03: Eval: FPG <100 mg/dL = Normal Fasting Glucose Eval: FPG 100 - 125 mg/dL = IFG (Impaired Fasting Glucose) Eval: FPG >126 mg/dL = Provisional Diagnosis of Diabetes Eval: (Reference: [place] [employer]'s Expert Committee Eval: on the Diagnosis and Classification of Diabetes Mellitus 2002) Eval: Eval: (Reference range prior to 10/10/03: 72-109 mg/dL) CALCIUM (mg/dL) 8.9 mg/dL 8.4 - 10.4 [6010] ASPARTATE TRANSAMINASE 10 U/L 5 - 34 [6010] ALANINE AMINOTRANSFERASE 9 U/L 8 - 40 [6010] ALKALINE PHOSPHATASE 74 U/L 40 - 150 [6010] TOTAL BILIRUBIN 0.7 mg/dL 0.2 - 1.2 [6010] PROTEIN,TOTAL 6.8 g/dL 6.0 - 8.6 [6010] ALBUMIN 4.1 g/dL 3.4 - 5.0 [6010] CHOLESTEROL 120 mg/dL 0 - 200 [6010] Eval: >>>>>>>>>>>>>>>>>>>>>>>>>>>>>><< <<<<<<<<<<<<<<<<<<<<<<<<<<<<<<<< Eval: Chol (mg/dl) Desirable <200 Borderline 200-239 High Risk >240 Eval: >>>>>>>>>>>>>>>>>>>>>>>>>>>>>><< <<<<<<<<<<<<<<<<<<<<<<<<<<<<<<<< TRIGS 87 mg/dL 0 - 150 [6010] Eval: TRIGLYCERIDE REFERENCE HIGH CHANGED FROM <200 mg/dl TO <150 mg/dl ON Eval: 02-20-2001 PER [place] [phone], 2000. HDL-CHOLESTEROL 37 L mg/dL Ref: > 40 [6010] Eval: <<<<<<<<<<<<<<<<<<<<<<<<<<<<<>>> >>>>>>>>>>>>>>>>>>>>>>> Eval: HDL (mg/dl) Desirable >40 mg/dl High Risk <40 mg/dl Eval: <<<<<<<<<<<<<<<<<<<<<<<<<<<<<>>> >>>>>>>>>>>>>>>>>>>>>>> LDL (CALC) 66 mg/dL 0 - 99.9 Provider: SHANELLE MOREAU Specimen: BLOOD. [facility] [id number] Specimen Collection Date: October 22, 2022@06:58 Test name Result units Ref. range Site Code WBC 8.30 K/cmm 3.6 - 11.2 [6010] RBC 4.41 M/ul 4.10 - 5.70 [6010] HGB 14.3 g/dL 13.1 - 16.8 [6010] HCT 41.1 % 38.2 - 48.4 [6010] MCV 93.2 fl 80.0 - 100.0 [6010] MCH 32.4 pg 27.0 - 34.0 [6010] MCHC 34.8 g/dL 33.0 - 36.0 [6010] RDW 12.1 % 11.8 - 15.1 [6010] PLATELET COUNT 161 K/cmm 150 - 400 [6010] MPV 11.0 fl 7.5 - 11.2 [6010] NEUTROPHILS, AUTO % 58.1 % [6010] LYMPHOCYTES, AUTO% 32.2 % [6010] MONOCYTES, AUTO% 8.1 % [6010] EOSINOPHILS, AUTO% 0.7 % [6010] BASOPHILS, AUTO% 0.5 % [6010] IMMATURE GRANS, AUTO % 0.4 % [6010] NEUTROPHILS, ABSOLUTE 4.83 K/cmm 2.10 - 8.00 [6010] LYMPHOCYTES, ABSOLUTE 2.67 K/cmm 0.77 - 4.50 [6010] MONOCYTES, ABSOLUTE 0.67 K/cmm 0.19 - 1.50 [6010] EOSINOPHILS, ABSOLUTE 0.06 K/cmm 0.00 - 0.60 [6010] BASOPHILS, ABSOLUTE 0.04 K/cmm 0.00 - 0.20 [6010] === EKG 08/18/2023: SB with sinus arrythmia vent rate 50bpm. Lt. Moseley deviation. LBBB EKG 01/22/2023: SB vent rate 53bpm. Lt. Moseley deviation. Lt. Bundle Branch block. EKG 12/18/2021: Marked sinus bradycardia with ventricular rate of 42 bpm. Left axis deviation. Left bundle branch block === === IMAGING === 1.) TTE 07/25/2022: Left ventricle is mildly dilated. Left ventricular systolic function is mildly reduced ejection fraction is 45 to 50%. There is mild global hypokinesis of the left ventricle. There is moderate inferior wall hypokinesis. Mild to moderate aortic insufficiency is present. TTE 07/16/2021: LVEF 40/45%. LV diastolic dysfunction. Mild to moderate AI. 2.)Event Monitor 11/2020: Fundamental Rhythm: sinus rhythm HR Range:37-119bpm Average HR:55bpm Ventricular Ectopy: 3% PVC burden Atrial ectopy:1% PAC burden Symptomatic transmissions show tracings of sinus rhythm and sinus tachycardia, 3 of the 7 tracings include PVC's. No significant pauses or heart block. 3.)Cardiac Catheterization 02/21/2020 ([facility]): Angiographic findings- LMCA 20% left main stenosis. LAD: 0% stenosis at site of prior D1 stent. 20 % stenosis at site of prior mid LAD stent. LCx: Diffuse 30% mid LCx stenosis. RCA: Diffuse 20% stenosis at site of prior stents in mid and distal RCA. 0% stenosis at site of prior ostial RPDA stent. Ostial RPLS 100% occluded. 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 Fills predominantly by L to R collaterals. Seen on prior angiography. Recommendations- Continue medical therapy for CAD. Plan for switch from ticagrelor to clopidogrel given patient's symptoms of dyspnea since starting ticagrelor. 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 === Recommendations: #1 CAD -Continue metoprolol succinate 25mg mg daily -Continue isosorbide 120 mg daily -Continue clopidogrel 75 mg daily -Continue aspirin 81 mg daily -Continue rosuvastatin 40 mg daily -Continue Ranolazine 1000mg daily -Heart healthy diet was recommended he was encouraged to eat lean meat, fish and chicken with plenty of fresh fruit and vegetables -Encouraged routine exercise up to 150 minutes/week #2 chronic stable angina -Continue isosorbide as stated -Continue Ranolazine as stated above #3 hypertension -Continue medications as stated above -Avoid high sodium diet #4 hyperlipidemia -Continue rosuvastatin 40 mg daily -Low-fat low-cholesterol diet -Last labs August 22, 2023 total cholesterol 120 triglycerides 87 HDL 37 LDL 66 #5 HFmrEF -Check final echo and notify pt. -Continue medications as stated above -Encouraged to weigh daily and to call if he had a weight gain greater than 3 pounds in 1 day or 5 pounds in 1 week -Recommended low-sodium diet less than 2 g daily -Encouraged to monitor blood pressure #6 mild to moderate AI -check final echo and notify pt. -Discussed natural progression of valvular heart disease with patient. We continue to monitor with f/u echocardiograms. RTC:One year with EKG and echocardiogram sooner if needed. On the date of encounter, I spent 25 minutes on some or all of the following: Chart review, history, physical exam, treatment planning, education and counseling of the pt/family/caregiver, placing orders, communicating with other health care providers and documentation in the electronic health record. /es/ SHANELLE MOREAU RETAIL ZONE SPECIALIST Signed: 07/29/2024 15:11 HSANELLE MOREAU [facility]
--- OUTSIDE RECORDS SUMMARY | 2024-09-25 16:06 | XMS_ITS ---
Author Name [facility] Organization [facility] Address [address] [place] [address] Care Team Providers Care Tractor Operator Name Role Phone HENRI, DENNY Primary Care [...] Member ID Insurance Provider's Telephone Number Policy Velazquez's Name Patient's Relationship to Policy Velazquez MEDICARE (WNR) MEDICARE (M) PART A Feb 07, 2007 PART A [id number] [phone] TEQUILA ALIYAH PATIENT MEDICARE (WNR) MEDICARE (M) PART A Feb 07, 2007 PART A [id number] [phone] TEQUILAALIYAH PATIENT Selected Encounter This section includes the information on record at ID for the Encounter. Date/Time Encounter Type Encounter Description Reason Pro vider Source Aug 31, 2024 12:17 AM Inpatient Visit ADMIN PAT ACTIVTIES (MASNONCT) IHE Encounter Template Text not used by [facility] Plan of Treatment: Future Appointments (+ 6 months) and Future Tests (+/- 45 days) The Plan of Treatment section includes future care activities for the [facility] This section includes future appointments and future orders which are active, pending or scheduled. Future Appointments This section includes appointments that were scheduled to occur 6 months from the date of the Encounter, up to a maximum of 20 appointments. The data comes from all [facility]. Appointment Date/Time Appointment Type Appointme nt Facility Name Sep 02, 2024 01:00 PM AMBULATORY - NONE [address] [facility] Sep 13, 2024 02:00 PM [facility] October 08, 2024 10:30 AM AMBULATORY - MEDICINE [facility] October 12, 2024 09:00 AM AMBULATORY - NONE [address] [address] [facility] October 12, 2024 10:00 AM AMBULATORY - NONE [address] [address] [facility] October 25, 2024 02:00 PM AMBULATORY - SURGERY [facility] Nov 15, 2024 02:00 PM AMBULATORY - MEDICINE [facility] Dec 13, 2024 10:00 AM [facility] Dec 21, 2024 10:30 AM [facility] Feb 15, 2025 10:00 AM AMBULATORY - MEDICINE [facility] Feb 15, 2025 11:00 AM AMBULATORY - NONE [facility] Active, Pending, and Scheduled Orders This section includes a listing of several types of active, pending, and scheduled orders, including clinic medications orders, diagnostic test orders, procedure orders and consult orders; where the start date of the order is 45 days before the date of the Encounter or 45 days after the date of theEncounter. The data comes from all [facility]. Test Date/Time Test Type Test Details Facility Name Jul 29, 2024 02:19 PM Procedure Order CP CO-ECHO FUTURE CARE ([place]) CP CO-ECHO FUTURE CARE-[id number] Proc Area Supervisor's Choice [facility] Jul 29, 2024 02:19 PM Procedure Order EKG OUTPAT IENT-CO EKG Needed on: Jul Urgency: ROUTINE Diagnosis/Reason: Ischemia (125.9) [facility] Aug 31, 2024 12:48 AM Laboratory - Blood Bank Order TYPE & SCREEN - LAB BLOOD,PINK/PURPLE (7-9ML) [facility] October 12, 2024 12:00 AM Laboratory - Chemi stry Order LIPID PROFILE(HDL,TRIG,CHO L,LDL) GREEN TOP TUBE PLASMA JUAN DAVID [facility] October 12, 2024 12:00 AM Laboratory - Chemi stry Order CMP-NONFASTING (CO) GREEN TOP TUBE PLASMA [facility] Lab Results: +/- 30 days of the [...] Type Comment Sep 01, 2024 03:14 AM [facility] MAGNESIUM (mg/dL) PLASMA Specimen Type: PLASMA No comment entered. Ordering Provider: LEEROY HUGHES Report Released Date/Time: Aug 31, 2024 09:28 AM Reporting Lab: [address] [phone] Performing Lab: [address] [phone] MAGNESIUM (mg/dL) 2.1 mg/dL 1.6-2.6 Sep 01, 2024 03:14 AM [facility] COMPREHENSIVE METABOLIC PANEL PLASMA Specimen Type: PLASMA No comment entered. Ordering Provider: LEEROY HUGHES Report Released Date/Time: Aug 31, 2024 09:28 AM Reporting Lab: [address] [phone] Performing Lab: [address] [phone] *CREATININE 1.12 mg/dL 0.70-1.30 UREA NITROGEN mg/dL [...] 2020) 66 Sep 01, 2024 03:14 AM [facility] CBC & DIFF BLOOD Specimen Type: BLOOD No comment entered. Ordering Provider: LEEROY HUGHES Report Released Date/Time: Aug 31, 2024 09:28 AM Reporting Lab: [address] [phone] Performing Lab: [address] [phone] WBC 15.00 10*3/uL H 3.6-11.2 RBC 4.10 [...] % 0.6 Aug 31, 2024 05:45 AM [facility] ANTI-Xa ([place]) BLOOD Specimen Type: BLOOD Comment: Critical Values: Unfractionated Heparin: > 1.0 IU/mL For Low Molecular Weight Heparin reference ranges contact lab. Ordering Provider: LARRY BARRIOS Report Released Date/Time: Aug 27, 2024 12:18 PM Reporting Lab: [address] [phone] Performing Lab: [address] ANTI-Xa ([place]) <0.04 [IU]/mL 0.3-0.7 Aug 31, 2024 05:45 AM [facility] MAGNESIUM (mg/dL) PLASMA Specimen Ty pe: PLASMA No comment entered. Ordering Provider: LEEROY HUGHES Report Released Date/Time: Aug 30, 2024 11:25 AM Reporting Lab: [place] [phone] Performing Lab: [place] [phone] MAGNESIUM (mg/dL) 2.2 mg/dL 1.6-2.6 Aug 31, 2024 05:45 AM [facility] COMPREHENSIVE METABOLIC PANEL PLASMA Specimen Type: PLASMA No comment entered. Ordering Provider: LEEROY HUGHES Report Released Date/Time: Aug 30, 2024 11:25 AM Reporting Lab: [address] Performing Lab: [place] [phone] *CREATININE 1.04 mg/dL 0.70-1.30 UREA NITROGEN mg/dL [...] 2020) 72 Aug 31, 2024 05:45 AM [facility] CBC & DIFF BLOOD Specimen Type: BLOOD No comment entered. Ordering Provider: LEEROY HUGHES Report Released Date/Time: Aug 30, 2024 11:25 AM Reporting Lab: [address] Performing Lab: [place] [phone] WBC 9.50 10*3/uL 3.6-11.2 RBC 4.12 10*6/uL [...] % 0.7 Aug 30, 2024 04:23 AM [facility] CMP-NONFASTING ([place]) PLASMA Specimen Type: PLASMA No comment entered. Ordering Provider: LARRY BARRIOS Report Released Date/Time: Aug 29, 2024 12:07 PM Reporting Lab: [address] [phone] Performing Lab: [address] [phone] *CREATININE 1.10 mg/dL 0.70-1.30 UREA NITROGEN mg/dL [...] 2020) 67 Aug 30, 2024 04:23 AM [facility] CBC & DIFF BLOOD Specimen Type: BLOOD No comment entered. Ordering Provider: LARRY BARRIOS Report Released Date/Time: Aug 29, 2024 12:07 PM Reporting Lab: [address] [phone] Performing Lab: [address] [phone] WBC 8.80 10*3/uL 3.6-11.2 RBC 3.99 10*6/uL [...] % 0.9 Aug 29, 2024 04:23 AM [facility] CMP-NONFASTING (CO) PLASMA Specimen Type: PLASMA No comment entered. Ordering Provider: LARRY BARRIOS Report Released Date/Time: Aug 28, 2024 10:54 AM Reporting Lab: [address] [phone] Performing Lab: [address] [phone] *CREATININE 1.04 mg/dL 0.70-1.30 UREA NITROGEN mg/dL [...] 2020) 72 Aug 29, 2024 04:23 AM [facility] CBC & DIFF BLOOD Specimen Type: BLOOD No comment entered. Ordering Provider: LARRY BARRIOS Report Released Date/Time: Aug 28, 2024 10:54 AM Reporting Lab: [address] [phone] Performing Lab: [address] [phone] WBC 8.50 10*3/uL 3.6-11.2 RBC 4.28 10*6/uL [...] % 0.6 Aug 28, 2024 04:50 AM [facility] T4 FREE SERUM Specimen Type: SERUM No comment entered. Ordering Provider: LARRY BARRIOS Report Released Date/Time: Aug 27, 2024 03:47 PM Reporting Lab: [place] [phone] Performing Lab: [place] [phone] T4 FREE 0.8 ng/dL 0.7-1.48 Aug 28, 2024 04:50 AM [facility] TSH SERUM Specimen Type: SERUM No comment entered. Ordering Provider: LARRY BARRIOS Report Released Date/Time: Aug 27, 2024 03:47 PM Reporting Lab: [place] [phone] Performing Lab: [place] [phone] *TSH 1.66 u[IU]/mL 0.47-5.00 Aug 28, 2024 04:50 AM [facility] CMP-NONFASTING ([place]) PLASMA Specimen Type: PLASMA No comment entered. Ordering Provider: LUIS YANES Report Released Date/Time: Aug 28, 2024 03:03 AM Reporting Lab: [place] [phone] Performing Lab: [place] [phone] *CREATININE 0.87 mg/dL 0.70-1.30 UREA NITROGEN mg/dL [...] 2020) 86 Aug 28, 2024 04:50 AM [facility] CBC & DIFF BLOOD Specimen Type: BLOOD No comment entered. Ordering Provider: LUIS YANES Report Released Date/Time: Aug 28, 2024 03:03 AM Reporting Lab: [address] [phone] Performing Lab: [address] [phone] WBC 9.20 10*3/uL 3.6-11.2 RBC 4.23 10*6/uL [...] % 0.5 Aug 27, 2024 02:14 PM [facility] ACT.CLOTTING TIME BLOOD Specimen Ty pe: BLOOD No comment entered. Ordering Provider: JEROME DOTY Report Released Date/Time: Aug 27, 2024 02:44 PM Reporting Lab: [address] [phone] Performing Lab: [address] [phone] ACT.CLOTTING TIME 153 s H [id number] Aug 27, 2024 11:30 AM [facility] hsTROP-CO PLASMA Specimen Type: PLASMA Comment: TROP-T-HS Called to: Velvet Bartlett RN at: 1213 on: 08/27/24 by: Jasvir Cunningham Result read back to comply with Joint Commission Ordering Provider: LARRY BARRIOS Report Released Date/Time: Aug 27, 2024 09:20 AM Reporting Lab: [place] [phone] Performing Lab: [place] [phone] hsTROP-CO 1017 HH See Interpretation Aug 27, 2024 08:55 AM [facility] MRSA SURVL NARES DNA NARES Specimen Type: NARES No comment entered. Ordering Provider: JEROME DOTY Report Released Date/Time: Aug 27, 2024 08:46 AM Reporting Lab: [place] [phone] Performing Lab: [place] [phone] MRSA SURVL NARES DNA Negative Negative Aug 27, 2024 08:20 AM [facility] URINALYSIS (ZOILA,[place],CO,EK) URINE Spec imen Type: URINE Comment: Microscopic not indicated Ordering Provider: RYAN HALL Report Released Date/Time: Aug 27, 2024 06:51 AM Reporting Lab: [place] [phone] Performing Lab: [address] *URINE COLOR Light-Yellow *URINE APPEARANCE Clear Clear *URINE PROTEIN Negative mg/dL Negative-T race *URINE LEUKOCYTE Negative Negative *URINE NITRITE Negative Negative *URINE BLOOD Negative Negative *URINE GLUCOSE Negative mg/dL Negative *URINE KETONES Negative mg/dL Negative *URINE PH 7.0 5.0-8.0 *URINE SPECIFIC GRAVITY 1.011 1.005-1. 030 *URINE BILIRUBIN Negative Negative *URINE UROBILINOGEN Normal mg/dL Normal Aug 27, 2024 06:40 AM [facility] PT/INR PLASMA Specimen Type: PLASMA No comment entered. Ordering Provider: RYAN HALL Report Released Date/Time: Aug 27, 2024 06:51 AM Reporting Lab: [place] [phone] Performing Lab: [place] [phone] *INR 1.0 {INR} *PT 11.4 s 9.4-12.5 Aug 27, 2024 06:40 AM [facility] APTT PLASMA Specimen Type: PLASMA No comment entered. Ordering Provider: RYAN HALL Report Released Date/Time: Aug 27, 2024 06:51 AM Reporting Lab: [place] [phone] Performing Lab: [place] [phone] APTT 29.8 s 26.7-39.9 Aug 27, 2024 06:40 AM [facility] COMPREHENSIVE METABOLIC PANEL PLASMA Specimen Type: PLASMA No comment entered. Ordering Provider: RYAN HALL Report Released Date/Time: Aug 27, 2024 06:51 AM Reporting Lab: [place] [phone] Performing Lab: [place] [phone] *CREATININE 1.14 mg/dL 0.70-1.30 UREA NITROGEN mg/dL [...] 2020) 64 Aug 27, 2024 06:40 AM [facility] NTproBNP ([place]) PLASMA Specimen Typ e: PLASMA No comment entered. Ordering Provider: RYAN HALL Report Released Date/Time: Aug 27, 2024 06:51 AM Reporting Lab: [place] [phone] Performing Lab: [place] [phone] NTproBNP ([place]) 410 pg/mL -See Interpre tation Aug 27, 2024 06:40 AM [facility] ANTI-Xa ([place]) BLOOD Specimen Type: BLOOD Comment: Critical Values: Unfractionated Heparin: > 1.0 IU/mL For Low Molecular Weight Heparin reference ranges contact lab. Ordering Provider: RYAN HALL Report Released Date/Time: Aug 27, 2024 07:24 AM Reporting Lab: [place] [phone] Performing Lab: [place] [phone] ANTI-Xa ([place]) <0.04 [IU]/mL 0.3-0.7 Aug 27, 2024 06:40 AM [facility] hsTROP-CO PLASMA Specimen Type: PLASMA No comment entered. Ordering Provider: RYAN HALL Report Released Date/Time: Aug 27, 2024 06:51 AM Reporting Lab: [place] [phone] Performing Lab: [place] [phone] hsTROP-CO 15 See Interpretation Aug 27, 2024 06:40 AM [facility] CBC & DIFF BLOOD Specimen Type: BLOOD No comment entered. Ordering Provider: RYAN HALL Report Released Date/Time: Aug 27, 2024 06:51 AM Reporting Lab: [place] [phone] Performing Lab: [place] [phone] WBC 15.70 10*3/uL H 3.6-11.2 RBC 4.80 [...] 0.00 -0.20 Aug 27, 2024 06:40 AM [facility] PATHOLOGIST REVIEW BLOOD Specimen T ype: BLOOD Comment: Reviewed by Dr. Chepe Yu: Reactive Lymphocytes. Ordering Provider: RYAN HALL Report Released Date/Time: Aug 27, 2024 06:51 AM Reporting Lab: [address] [phone] Performing Lab: [address] [phone] PATHOLOGIST REVIEW comment Vital Signs: All taken on the encounter date This section contains inpatient and outpatient Vital Signs collected on the date of the Encounter. Date/Time Temperature Pulse Blood Pressure Respiratory Rate SP02 Pain Height Weight Body Mass Index Source Aug 31, 2024 08:00 PM 98.2 61 121/68 20 94 5 [facility] Aug 31, 2024 08:51 AM 97.3 55 130/56 13 97 0 [facility] Aug 31, 2024 07:24 AM 216.71 34 [facility] Social History: Smoking Status (Most [...] PM VA-TOBACCO QUIT 15 YRS OR MORE [facility] Apr 04, 2022 09:15 AM VA-TOBACCO FORMER USER [facility] Apr 04, 2022 09:15 AM VA-TOBACCO QUIT 15 YRS OR MORE [facility] Jul 18, 2021 10:13 AM INPT TOBACCO SCREENED NEGATIVE [facility] Apr 27, 2021 07:00 AM INPT TOBACCO SCREENED NEGATIVE [facility] October 31, 2020 02:30 PM INPT TOBACCO SCREENED NEGATIVE [facility] October 08, 2020 10:22 AM INPT TOBACCO SCREENED NEGATIVE [facility] October 07, 2020 07:22 AM VA-TOBACCO FORMER USER [facility] Sep 30, 2020 11:06 AM INPT TOBACCO SCREENED NEGATIVE [facility] Sep 29, 2020 04:05 PM VA-TOBACCO NEVER USED [facility] Jan 17, 2020 10:21 AM VA-TOBACCO FORMER USER [facility] Jan 17, 2020 10:21 AM [...] this document. The data comes from all ID facilities. Date Advance Directives Provider Source October 22, 2022 ADVANCE DIRECTIVE DISCUSSION ARGELIA CHAVEZ [facility] Apr 04, 2022 ADVANCE DIRECTIVE DISCUSSION RAY ROQUE [facility] Sep 30, 2020 ADVANCE DIRECTIVE DISCUSSION ILYA BROWN [facility] Jul 26, 2020 ADVANCE DIRECTIVE DISCUSSION FABY TAMEZ [facility] Apr 17, 2020 ADVANCE DIRECTIVE DISCUSSION LINETTE RAMIREZ [facility] Jan 17, 2020 ADVANCE DIRECTIVE DISCUSSION LNIETTE RAMIREZ [facility] Feb 24, 2009 ADVANCE DIRECTIVE HECTOR [facility] Radiology Reports: +/- 30 days of the [...] 06:18 AM CHEST 2 VIEWS: ALIYAH MANDEL [id number] -1940 M Exm Date: SEP 01, 2024@06:18 Req Phys: TERRELL GUO Loc: ICU PCU MED-CO/09-01-2024@07:2 Img Loc: CO-LIVING MANAGER [facility] [address] (Case [id number] COMPLETE) CHEST 2 VIEWS (RAD Detailed) CPT:48499 Reason for Study: Assess pulmonary status S/P Pacemaker/AICD implant Clinical History: Morning after procedure DO NOT raise left arm above shoulder level. Report Status: Verified Date Reported: SEP 01, 2024 Date Verified: SEP 01, 2024 Personnel Clerk E-Sig:/ES/Aubrie Garcia MD PhD Report: History: Pacemaker [...] Aubrie Garcia MD PhD, CHIEF, CLINICAL SUPPORT (Personnel Clerk) /MDT AUBRIE GARCIA ROBI [facility] Aug 31, 2024 04:27 PM CHEST 1 VIEW: ALIYAH MANDEL [id number] -1940 M Exm Date: AUG 31, 2024@16:27 Req Phys: TERRELL GUO Loc: ICU PCU MED-CO/09-01-2024@07:2 Img Loc: CO-LIVING MANAGER [facility]: [facility] [place] [address] (Case [id number] COMPLETE) CHEST 1 VIEW (RAD Detailed) CPT:78608 Proc Modifiers : PORTABLE Reason for Study: s/p pacemaker Clinical History: Report Status: Verified Date Reported: SEP 01, 2024 Date Verified: SEP 01, 2024 Personnel Clerk E-Sig:/ES/Aubrie Garcia MD PhD Report: History: Pacemaker [...] Aubrie Garcia MD PhD, CHIEF, CLINICAL SUPPORT (Personnel Clerk) /AUBRIE VELEZ ROBI [facility] Aug 31, 2024 05:05 AM CHEST 1 VIEW: ALIYAH MANDEL JAMIN [id number] -1940 M Exm Date: AUG 31, 2024@05:05 Req Phys: LEEROY HUGHES Pat Loc: ICU PCU MED-CO/08-31-2024@07:3 Img Loc: CO-LIVING MANAGER Service: [facility] [place] [address] (Case [id number] COMPLETE) CHEST 1 VIEW (RAD Detailed) CPT:38716 Reason for Study: Assess pulmonary function s/p pacemaker AICD placement Clinical History: Report Status: Verified Date Reported: AUG 31, 2024 Date Verified: AUG 31, 2024 Personnel Clerk E-Sig:/TONI/Aubrie Garcia MD PhD Report: History: AICD placement. [...] Aubrie Garcia MD PhD, CHIEF, CLINICAL SUPPORT (Personnel Clerk) /AUBRIE VELEZ [facility] Aug 27, 2024 06:51 AM CHEST 1 VIEW: ALIYAH MANDEL [id number] -1940 M Exm Date: AUG 27, 2024@06:51 Req Phys: RYAN HALL Loc: CO-ED (Req'g Loc) Img Loc: CO-LIVING MANAGER Service: Unknown [place] [address] (Case [id number] COMPLETE) CHEST 1 VIEW (RAD Detailed) CPT:96972 Proc Modifiers : PORTABLE Reason for Study: vtach Clinical History: If ordering Portable X-Ray call Tech at [id number] for prompt response Report Status: Verified Date Reported: AUG 27, 2024 Date Verified: AUG 27, 2024 Personnel Clerk E-Sig:/ES/Aubrie Garcia MD PhD Report: History: Ventricular tachycardia. Single view of the chest. Comparison: 05/20/2023. Findings: Lungs are clear. Mild cardiomegaly without pulmonary edema. Soft tissues are unremarkable. Atherosclerosis. Osseous structures demonstrate degenerative changes. Impression: Mild cardiomegaly without pulmonary edema. READING PHYSICIAN: Aubrie Garcia 08/27/2024 7:29 AM Primary Diagnostic Code: NO ALERT REQUIRED Primary Interpreting Staff: Aubrie Garcia MD PhD, CHIEF, CLINICAL SUPPORT (Personnel Clerk) /MDT AUBRIE GARCIA [facility] Encounter Notes: All associated encounter notes This section contains the clinical notes associated to the Encounter. Date/Time Encounter Note(s) Provider Source Aug 31, 2024 12:17 AM NURSING DIAGNOSTIC STUDY NOTE: LOCAL TITLE: CO-ICCA 24 HOUR RHYTHM STRIP STANDARD TITLE: NURSING DIAGNOSTIC STUDY NOTE DATE OF NOTE: AUG 31, 2024@00:17 ENTRY DATE: AUG 31, 2024@10:04:21 AUTHOR: USER,JL EXP COSIGNER: URGENCY: STATUS: COMPLETED This is a place velazquez only. Please see [employer] to view document. /es/ JL USER SYSTEM USER Signed: 08/31/2024 10:04 USER,JL [facility]
--- OUTSIDE RECORDS SUMMARY | 2024-09-25 16:06 | XMS_ITS ---
Author Name [facility] [place] [facility] [place] Address [address] [place] [address] Care Team Providers Care Service Associate Name Role Phone HENRIABIGAIL GARCIA Primary Care [...] PART A Feb 07, 2007 PART A [id number] [phone] ALIYAH MANDEL PATIENT MEDICARE (WNR) MEDICARE (M) PART A Feb 07, 2007 PART A [id number] [phone] ASHWINI MANDELALD PATIENT Selected Encounter This section includes the information on record at [place] for the Encounter. Date/Time Encounter Type Encounter Description Reason Provider Source Sep 01, 2024 11:48 AM MTMS BY PHARM ELECTRONICS TEST ENGINEER 15 MIN CLINICAL PHARMACY ICD-10-CM I25.10 Athscl heart disease of [place] coronary artery w/o ang pctrs BIN SWENSON IHE Encounter Template Text not used by [place] Assessments - Encounter Diagnoses This section includes the primary and secondary diagnoses documented for the Encounter. Date/Time Primary/Secondary Diagnosis Diagnosis Name Provider Source Sep 01, 2024 03:57 PM PRIMARY Athscl heart disease of [place] coronary artery w/o ang pctrs [facility] Sep 01, 2024 03:57 PM SECONDARY Presence of coronary angioplasty implant and graft [facility] Plan of Treatment: Future Appointments (+ 6 months) and Future Tests (+/- 45 days) The Plan of Treatment section includes future care activities for the [facility] [place] [facility] This section includes future appointments and future orders which are active, pending or scheduled. Future Appointments This section includes appointments that were scheduled to occur 6 months from the date of the Encounter, up to a maximum of 20 appointments. The data comes from all [facility]. Appointment Date/Time Appointment Type Appointme nt Facility Name Sep 02, 2024 01:00 PM AMBULATORY - NONE [address] [facility] Sep 13, 2024 02:00 PM [facility] October 08, 2024 10:30 AM AMBULATORY - MEDICINE [facility] October 12, 2024 09:00 AM AMBULATORY - NONE [address] [facility] October 12, 2024 10:00 AM AMBULATORY - NONE [address] [facility] October 25, 2024 02:00 PM AMBULATORY - SURGERY [facility] Nov 15, 2024 02:00 PM AMBULATORY - MEDICINE [facility] Dec 13, 2024 10:00 AM [facility] Dec 21, 2024 10:30 AM [facility] Feb 15, 2025 10:00 AM [facility] Feb 15, 2025 11:00 AM AMBULATORY - NONE [facility] Active, Pending, and Scheduled Orders This section includes a listing of several types of active, pending, and scheduled orders, including clinic medications orders, diagnostic test orders, procedure orders and consult orders; where the start date of the order is 45 days before the date of the Encounter or 45 days after the date of theEncounter. The data comes from all [facility]. 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[employer] [facility] Jul 29, 2024 02:19 PM Procedure Order EKG OUTPAT IENT-CO EKG Needed on: Jul Urgency: ROUTINE Diagnosis/Reason: Ischemia (125.9) [facility] Aug 31, 2024 12:48 AM Laboratory - Blood Bank Order TYPE & SCREEN - LAB BLOOD,PINK/PURPLE (7-9ML) WC [facility] October 12, 2024 12:00 AM Laboratory - Chemi stry Order LIPID PROFILE(HDL,TRIG,CHO L,LDL) GREEN TOP TUBE PLASMA JUAN DAVID [facility] October 12, 2024 12:00 AM Laboratory - Chemi stry Order CMP-NONFASTING ([place]) GREEN TOP TUBE PLASMA [facility] Lab Results: +/- 30 days of the encounter This section includes the Chemistry and Hematology Lab Results on record with [place] for the patient. Radiology Reports and Pathology Reports are provided separately, in subsequent sections. Lab Results This section contains the Chemistry/Hematology Results that were resulted 30 days before or 30 daysafter the date of the Encounter. Date/Time Source Result Type Result - Unit Interpretation Reference Range Specimen Type Comment Sep 01, 2024 03:14 AM [facility] MAGNESIUM (mg/dL) PLASMA Specimen Type: PLASMA No comment entered. Ordering Provider: LEEROY HUGHES Report Released Date/Time: Aug 31, 2024 09:28 AM Reporting Lab: [address] [address] Performing Lab: [address] [phone] MAGNESIUM (mg/dL) 2.1 mg/dL 1.6-2.6 Sep 01, 2024 03:14 AM [facility] COMPREHENSIVE METABOLIC PANEL PLASMA Specimen Type: PLASMA No comment entered. Ordering Provider: LEEROY HUGHES Report Released Date/Time: Aug 31, 2024 09:28 AM Reporting Lab: [address] [phone] Performing Lab: [address] [address] *CREATININE 1.12 mg/dL 0.70-1.30 UREA NITROGEN mg/dL [...] 66 Sep 01, 2024 03:14 AM [facility] CBC & DIFF BLOOD Specimen Type: BLOOD No comment entered. Ordering Provider: LEEROY HUGHES Report Released Date/Time: Aug 31, 2024 09:28 AM Reporting Lab: [address] [address] Performing Lab: [address] [address] WBC 15.00 10*3/uL H 3.6-11.2 RBC 4.10 [...] 0.6 Aug 31, 2024 05:45 AM [facility] ANTI-Xa ([place]) BLOOD Specimen Type: BLOOD Comment: Critical Values: Unfractionated Heparin: > 1.0 IU/mL For Low Molecular Weight Heparin reference ranges contact lab. Ordering Provider: LARRY BARRIOS Report Released Date/Time: Aug 27, 2024 12:18 PM Reporting Lab: [place] [phone] Performing Lab: [place] [phone] ANTI-Xa ([place]) <0.04 [IU]/mL 0.3-0.7 Aug 31, 2024 05:45 AM [facility] MAGNESIUM (mg/dL) PLASMA Specimen Ty pe: PLASMA No comment entered. Ordering Provider: LEEROY HUGHES Report Released Date/Time: Aug 30, 2024 11:25 AM Reporting Lab: [place] [phone] Performing Lab: [place] [phone] MAGNESIUM (mg/dL) 2.2 mg/dL 1.6-2.6 Aug 31, 2024 05:45 AM [facility] COMPREHENSIVE METABOLIC PANEL PLASMA Specimen Type: PLASMA No comment entered. Ordering Provider: LEEROY HUGHES Report Released Date/Time: Aug 30, 2024 11:25 AM Reporting Lab: [place] [phone] Performing Lab: [place] [phone] *CREATININE 1.04 mg/dL 0.70-1.30 UREA NITROGEN mg/dL [...] 72 Aug 31, 2024 05:45 AM [facility] CBC & DIFF BLOOD Specimen Type: BLOOD No comment entered. Ordering Provider: LEEROY HUGHES Report Released Date/Time: Aug 30, 2024 11:25 AM Reporting Lab: [address] [phone] Performing Lab: [address] [address] WBC 9.50 10*3/uL 3.6-11.2 RBC 4.12 10*6/uL [...] 0.7 Aug 30, 2024 04:23 AM [facility] CMP-NONFASTING ([place]) PLASMA Specimen Type: PLASMA No comment entered. Ordering Provider: LARRY BARRIOS Report Released Date/Time: Aug 29, 2024 12:07 PM Reporting Lab: [address] [phone] Performing Lab: [address] [address] *CREATININE 1.10 mg/dL 0.70-1.30 UREA NITROGEN mg/dL [...] 67 Aug 30, 2024 04:23 AM [facility] CBC & DIFF BLOOD Specimen Type: BLOOD No comment entered. Ordering Provider: LARRY BARRIOS Report Released Date/Time: Aug 29, 2024 12:07 PM Reporting Lab: [address] [phone] Performing Lab: [address] [address] WBC 8.80 10*3/uL 3.6-11.2 RBC 3.99 10*6/uL [...] 0.9 Aug 29, 2024 04:23 AM [facility] CMP-NONFASTING ([place]) PLASMA Specimen Type: PLASMA No comment entered. Ordering Provider: LARRY BARRIOS Report Released Date/Time: Aug 28, 2024 10:54 AM Reporting Lab: [address] [address] Performing Lab: [address] [address] *CREATININE 1.04 mg/dL 0.70-1.30 UREA NITROGEN mg/dL [...] 72 Aug 29, 2024 04:23 AM [facility] CBC & DIFF BLOOD Specimen Type: BLOOD No comment entered. Ordering Provider: LARRY BARRIOS Report Released Date/Time: Aug 28, 2024 10:54 AM Reporting Lab: [address] [address] Performing Lab: [address] [address] WBC 8.50 10*3/uL 3.6-11.2 RBC 4.28 10*6/uL [...] 0.6 Aug 28, 2024 04:50 AM [facility] T4 FREE SERUM Specimen Type: SERUM No comment entered. Ordering Provider: LARRY BARRIOS Report Released Date/Time: Aug 27, 2024 03:47 PM Reporting Lab: [address] [address] Performing Lab: [address] [address] T4 FREE 0.8 ng/dL 0.7-1.48 Aug 28, 2024 04:50 AM [facility] TSH SERUM Specimen Type: SERUM No comment entered. Ordering Provider: LARRY BARRIOS Report Released Date/Time: Aug 27, 2024 03:47 PM Reporting Lab: [place] [phone] Performing Lab: [place] [phone] *TSH 1.66 u[IU]/mL 0.47-5.00 Aug 28, 2024 04:50 AM [facility] CMP-NONFASTING ([place]) PLASMA Specimen Type: PLASMA No comment entered. Ordering Provider: LUIS YANES Report Released Date/Time: Aug 28, 2024 03:03 AM Reporting Lab: [address] [phone] Performing Lab: [address] [address] *CREATININE 0.87 mg/dL 0.70-1.30 UREA NITROGEN mg/dL [...] 86 Aug 28, 2024 04:50 AM [facility] CBC & DIFF BLOOD Specimen Type: BLOOD No comment entered. Ordering Provider: LUIS YANES Report Released Date/Time: Aug 28, 2024 03:03 AM Reporting Lab: [address] [address] Performing Lab: [address] [address] WBC 9.20 10*3/uL 3.6-11.2 RBC 4.23 10*6/uL [...] 0.5 Aug 27, 2024 02:14 PM [facility] ACT.CLOTTING TIME BLOOD Specimen Ty pe: BLOOD No comment entered. Ordering Provider: JEROME DOTY Report Released Date/Time: Aug 27, 2024 02:44 PM Reporting Lab: [address] Performing Lab: [address] ACT.CLOTTING TIME 153 s H 74-137 Aug 27, 2024 11:30 AM [facility] hsTROP-CO PLASMA Specimen Type: PLASMA Comment: TROP-T-HS Called to: Velvet Bartlett RN at: 1213 on: 08/27/24 by: Jasvir Cunningham Result read back to comply with Joint Commission Ordering Provider: LARRY BARRIOS Report Released Date/Time: Aug 27, 2024 09:20 AM Reporting Lab: [address] Performing Lab: [address] hsTROP-CO 1017 HH See Interpretation Aug 27, 2024 08:55 AM [facility] MRSA SURVL NARES DNA NARES Specimen Type: NARES No comment entered. Ordering Provider: JEROME DOTY Report Released Date/Time: Aug 27, 2024 08:46 AM Reporting Lab: [address] Performing Lab: [address] MRSA SURVL NARES DNA Negative Negative Aug 27, 2024 08:20 AM [facility] URINALYSIS (ZOILA,[place],CO,EK) URINE Spec imen Type: URINE Comment: Microscopic not indicated Ordering Provider: RYAN HALL Report Released Date/Time: Aug 27, 2024 06:51 AM Reporting Lab: [address] Performing Lab: [address] *URINE COLOR Light-Yellow *URINE APPEARANCE Clear Clear *URINE PROTEIN Negative mg/dL Negative-T race *URINE LEUKOCYTE Negative Negative *URINE NITRITE Negative Negative *URINE BLOOD Negative Negative *URINE GLUCOSE Negative mg/dL Negative *URINE KETONES Negative mg/dL Negative *URINE PH 7.0 5.0-8.0 *URINE SPECIFIC GRAVITY 1.011 1.005-1. 030 *URINE BILIRUBIN Negative Negative *URINE UROBILINOGEN Normal mg/dL Normal Aug 27, 2024 06:40 AM [facility] PT/INR PLASMA Specimen Type: PLASMA No comment entered. Ordering Provider: RYAN HALL Report Released Date/Time: Aug 27, 2024 06:51 AM Reporting Lab: [address] [phone] Performing Lab: [place] [phone] *INR 1.0 {INR} *PT 11.4 s 9.4-12.5 Aug 27, 2024 06:40 AM [facility] APTT PLASMA Specimen Type: PLASMA No comment entered. Ordering Provider: RYAN HALL Report Released Date/Time: Aug 27, 2024 06:51 AM Reporting Lab: [place] [phone] Performing Lab: [place] [phone] APTT 29.8 s 26.7-39.9 Aug 27, 2024 06:40 AM [facility] COMPREHENSIVE METABOLIC PANEL PLASMA Specimen Type: PLASMA No comment entered. Ordering Provider: RYAN HALL Report Released Date/Time: Aug 27, 2024 06:51 AM Reporting Lab: [place] [phone] Performing Lab: [place] [phone] *CREATININE 1.14 mg/dL 0.70-1.30 UREA NITROGEN mg/dL [...] 64 Aug 27, 2024 06:40 AM [facility] NTproBNP ([place]) PLASMA Specimen Typ e: PLASMA No comment entered. Ordering Provider: RYAN HALL Report Released Date/Time: Aug 27, 2024 06:51 AM Reporting Lab: [place] [phone] Performing Lab: [place] [phone] NTproBNP ([place]) 410 pg/mL -See Interpre tation Aug 27, 2024 06:40 AM [facility] ANTI-Xa ([place]) BLOOD Specimen Type: BLOOD Comment: Critical Values: Unfractionated Heparin: > 1.0 IU/mL For Low Molecular Weight Heparin reference ranges contact lab. Ordering Provider: RYAN HALL Report Released Date/Time: Aug 27, 2024 07:24 AM Reporting Lab: [place] [phone] Performing Lab: [place] [phone] ANTI-Xa ([place]) <0.04 [IU]/mL 0.3-0.7 Aug 27, 2024 06:40 AM [facility] hsTROP-CO PLASMA Specimen Type: PLASMA No comment entered. Ordering Provider: RYAN HALL Report Released Date/Time: Aug 27, 2024 06:51 AM Reporting Lab: [place] [phone] Performing Lab: [place] [phone] hsTROP-CO 15 See Interpretation Aug 27, 2024 06:40 AM [facility] CBC & DIFF BLOOD Specimen Type: BLOOD No comment entered. Ordering Provider: RYAN HALL Report Released Date/Time: Aug 27, 2024 06:51 AM Reporting Lab: [place] [phone] Performing Lab: [place] [phone] WBC 15.70 10*3/uL H 3.6-11.2 RBC 4.80 [...] -0.20 Aug 27, 2024 06:40 AM [facility] PATHOLOGIST REVIEW BLOOD Specimen T ype: BLOOD Comment: Reviewed by Dr. Chepe Yu: Reactive Lymphocytes. Ordering Provider: RYAN HALL Report Released Date/Time: Aug 27, 2024 06:51 AM Reporting Lab: [address] [phone] Performing Lab: [address] [phone] PATHOLOGIST REVIEW comment Vital Signs: All taken on the encounter date This section contains inpatient and outpatient Vital Signs collected on the date of the Encounter. Date/Time Temperature Pulse Blood Pressure Respiratory Rate SP02 Pain Height Weight Body Mass Index Source Sep 01, 2024 08:55 AM 97.2 60 127/63 22 96 0 [facility] Sep 01, 2024 06:50 AM 193.79 30 [facility] Social History: Smoking Status [...] took place. Date/Time Current Smoking Status Comment [place] ity Apr 30, 2023 01:00 PM VA-TOBACCO FORMER USER [facility] Tobacco Use History This section includes a history of the smoking, or tobacco-related health factors, that were collected on or before the date of the Encounter. The data comes from the [place] facility where the Encounter took place. Date/Time Smoking Status/Tobacco Use Comment F acility Apr 30, 2023 01:00 PM VA-TOBACCO QUIT 15 YRS OR MORE [facility] Apr 04, 2022 09:15 AM VA-TOBACCO FORMER USER [facility] Apr 04, 2022 09:15 AM VA-TOBACCO QUIT 15 YRS OR MORE [facility] Jul 18, 2021 10:13 AM INPT TOBACCO SCREENED NEGATIVE [facility] Apr 27, 2021 07:00 AM INPT TOBACCO SCREENED NEGATIVE [facility] October 31, 2020 02:30 PM INPT TOBACCO SCREENED NEGATIVE [facility] October 08, 2020 10:22 AM INPT TOBACCO SCREENED NEGATIVE [facility] October 07, 2020 07:22 AM VA-TOBACCO FORMER USER [facility] Sep 30, 2020 11:06 AM INPT TOBACCO SCREENED NEGATIVE [facility] Sep 29, 2020 04:05 PM VA-TOBACCO NEVER USED [facility] Jan 17, 2020 10:21 AM VA-TOBACCO FORMER USER [facility] Jan 17, 2020 10:21 AM VA-TOBACCO QUIT 15 YRS OR MORE [facility] Advance Directives: All historical and current Section Date Range: From patient's date of to the date document was created. This section includes ALL of a patient's completed or amended [place] Advance and Rescinded Directives. The entries below indicate that a directive exists for the patient, but an actual copy is not included with this document. The data comes from all [facility]. Date Advance Directives Provider Source October 22, 2022 ADVANCE DIRECTIVE DISCUSSION ARGELIA CHAVEZ [facility] Apr 04, 2022 ADVANCE DIRECTIVE DISCUSSION RAY ROQUE [facility] Sep 30, 2020 ADVANCE DIRECTIVE DISCUSSION ILYA BROWN [facility] Jul 26, 2020 ADVANCE DIRECTIVE DISCUSSION FABY TAMEZ [facility] Apr 17, 2020 ADVANCE DIRECTIVE DISCUSSION ASHLEYLINETTE [facility] Jan 17, 2020 ADVANCE DIRECTIVE DISCUSSION ASHLEYLINETTE [facility] Feb 24, 2009 ADVANCE DIRECTIVE CANDYHECTOR IGLESIAS [facility] Radiology Reports: +/- 30 days [...] the Encounter. The data comes from all [place] treatment facilities. Date/Time Radiology Report Provider Source Sep 01, 2024 06:18 AM CHEST 2 VIEWS: ALIYAH MANDEL [id number] -1940 M Exm Date: SEP 01, 2024@06:18 Req Phys: TERRELL GUO Pat Loc: ICU PCU MED-CO/09-01-2024@07:2 Img Loc: CO-SURGICAL PROCESSOR Service: CO MEDIC[place] [address] (Case [id number] COMPLETE) CHEST 2 VIEWS (RAD Detailed) CPT:97523 Reason for Study: Assess pulmonary status S/P Pacemaker/AICD implant Clinical History: Morning after procedure DO NOT raise left arm above shoulder level. Report Status: Verified Date Reported: SEP 01, 2024 Date Verified: SEP 01, 2024 Assistant Professor Of Dietetics E-Sig:/ES/Aubrie Garcia MD PhD Report: History: Pacemaker [...] Aubrie Garcia MD PhD, CHIEF, CLINICAL SUPPORT (Assistant Professor Of Dietetics) /AUBRIE VELEZ [facility] Aug 31, 2024 04:27 PM CHEST 1 VIEW: ALIYAH MANDEL [id number] -1940 M Exm Date: AUG 31, 2024@16:27 Req Phys: TETOANSLEYDENISACAREYTERRELLWENDY GREENN Pat Loc: ICU [facility]/09-01-2024@07:2 Img Loc: CO-SURGICAL PROCESSOR Service: [place] [address] (Case [id number] COMPLETE) CHEST 1 VIEW (RAD Detailed) CPT:74016 Proc Modifiers : PORTABLE Reason for Study: s/p pacemaker Clinical History: Report Status: Verified Date Reported: SEP 01, 2024 Date Verified: SEP 01, 2024 Assistant Professor Of Dietetics E-Sig:/ES/Aubrie Garcia MD PhD Report: History: Pacemaker [...] Aubrie Garcia MD PhD, CHIEF, CLINICAL SUPPORT (Assistant Professor Of Dietetics) /MDT AUBRIE GARCIA ROBI [facility] Aug 31, 2024 05:05 AM CHEST 1 VIEW: ALIYAH MANDEL [id number] -1940 M Exm Date: AUG 31, 2024@05:05 Req Phys: LEEROY HUGHES Pat Loc: [facility]/08-31-2024@07:3 Img Loc: CO-SURGICAL PROCESSOR Service: [place] [address] (Case [id number] COMPLETE) CHEST 1 VIEW (RAD Detailed) CPT:28557 Reason for Study: Assess pulmonary function s/p pacemaker AICD placement Clinical History: Report Status: Verified Date Reported: AUG 31, 2024 Date Verified: AUG 31, 2024 Assistant Professor Of Dietetics E-Sig:/ES/Aubrie Garcia MD PhD Report: History: AICD [...] Aubrie Garcia MD PhD, CHIEF, CLINICAL SUPPORT (Assistant Professor Of Dietetics) /AUBRIE VELEZ [facility] Aug 27, 2024 06:51 AM CHEST 1 VIEW: ALIYAH MANDEL [id number] -1940 M Exm Date: AUG 27, 2024@06:51 Req Phys: RYAN HALL Loc: CO-ED (Req'g Loc) Img Loc: CO-SURGICAL PROCESSOR Service: Unknown [place] [address] (Case [id number] COMPLETE) CHEST 1 VIEW (RAD Detailed) CPT:02027 Proc Modifiers : PORTABLE Reason for Study: vtach Clinical History: If ordering Portable X-Ray call Tech at [id number] for prompt response Report Status: Verified Date Reported: AUG 27, 2024 Date Verified: AUG 27, 2024 Assistant Professor Of Dietetics E-Sig:/ES/Aubrie Garcia MD PhD Report: History: Ventricular tachycardia. Single view of the chest. Comparison: 05/20/2023. Findings: Lungs are clear. Mild cardiomegaly without pulmonary edema. Soft tissues are unremarkable. Atherosclerosis. Osseous structures demonstrate degenerative changes. Impression: Mild cardiomegaly without pulmonary edema. READING PHYSICIAN: Aubrie Garcia 08/27/2024 7:29 AM Primary Diagnostic Code: NO ALERT REQUIRED Primary Interpreting Staff: Aubrie Garcia MD PhD, CHIEF, CLINICAL SUPPORT (Assistant Professor Of Dietetics) /AUBRIE VELEZ ROBI [facility] Encounter Notes: All associated encounter notes This section contains the clinical notes associated to the Encounter. Date/Time Encounter Note(s) Provider Source Sep 01, 2024 11:49 AM PHARMACY COUNSELIN G DISCHARGE NOTE: LOCAL TITLE: CO-PHARMACY DISCHARGE/PATIENT EDUCATION CONSULT NOT STANDARD TITLE: PHARMACY COUNSELING DISCHARGE NOTE DATE OF NOTE: SEP 01, 2024@11:49 ENTRY DATE: SEP 01, 2024@11:49:22 AUTHOR: BIN SWENSON EXP COSIGNER: URGENCY: STATUS: COMPLETED DIAGNOSIS at Admission: Vent. Tachycardia ICD placement Discharge Medications: Active Outpatient Medications (including Supplies): Active Outpatient [...] TAKE WITH FOOD Pending Outpatient Medications Status 1) AMIODARONE HCL (PACERONE) 200MG TAB TAKE TWO TABLETS PENDING BY MOUTH DAILY 2) CEPHALEXIN 500MG CAP TAKE ONE CAPSULE BY MOUTH TWO PENDING TIMES A DAY TAKE WITH FOOD.TAKE UNTIL GONE UNLESS OTHERWISE DIRECTED 3) SPIRONOLACTONE 25MG TAB TAKE ONE TABLET BY MOUTH PENDING EVERY MORNING Active Non-VA Medications Status 1) Non-VA ASPIRIN 81MG EC TAB 81MG MOUTH ONCE A DAY ACTIVE 16 Total Medications ALLERGIES/ADR: Patient has answered NKA MEDICATION RECONCILIATION (Inpatient and outpatient profiles compared): New Medications: 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 Discharging to: Home. New OUTPATIENT medications from this admission: - Amiodarone 400 mg po daily. - Spironolactone 25 mg qam. - Cephalexin 500 mg bid x5 (stop date will be 09/05 evening). Dosage and/ or frequency changes to current OUTPATIENT medications from this admission: None. Discontinued OUTPATIENT medications this admission: - Amlodipine 10 mg daily. - Clopidogrel 75 mg daily. OUTPATIENT medications to be held until follow-up with provider: None. OUTPATIENT medications held while inpatient but can be resumed at discharge: Aspirin 81 mg daily. Tamsulosin 0.4 mg daily. PHARMACY INTERVENTION: ? Dose of Amiodarone and how long pt. should stay on 400mg daily? Continue 400mg daily until seen by cardiology in 1 week , then follow instructions. - ? 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 Discussed with Cardio Fellow. ? Amlodipine= Stop. d/c PATIENT and his Mary COUNSELING: - Provided updated list of medications for patient's reference. - All new medications highlighted and explained. - Then reviewed all medications, indications, appropriate time to take each medication. - List of discontinued medications: - Amlodipine - PLAVIX: PATIENT, HIS AND HIS DAUGHTER (NURSE) are very concerned given patient has 17 STENTS since 2008! provided and discussed. - Discussed Drug/Drug interactions. - Reviewed ADR/Allergy with patient and - Patient takes care of own medication. Medication delivered and reviewed at bedside. Reviewed non-VA medication use with patient. Verified patient's mailing address and phone # Teaching Method: printed handout and discussion Response: Patient and verbalized understanding our conversation, are very concerned about stopping Plavix (did notify team and psychologist chief), able to paraphrase important points, able to demonstrate skills required, he did NOT have further questions at the time of discharge. Patient has a cardio appointment in 7 days per Cardio fellow and should discuss it at that time. PHARMACY NOTES: - Will notify PCP team as well as cardiology provider. Teto Winters, The whole family (Pat, , their daughter Law) are very concerned about stopping the Plavix. They say since 2008 in addition to balloons he has had 17 STENTS in R side of his heart and they were told he she stay on it indefinitely! They will talk to you about it in their next visit per fellow in 7 days. Thank you PATIENT DISPOSITION: Home PBM PharmD Pharmacotherapy Rem V12: PHARMACIST INTERVENTIONS: Address adherence Care coordination Discharge counseling provided Medication monitoring or diagnostic evaluation (e.g., other labs, EKG) Medication reconciliation (changes to active VA and non-VA medication lists to reconcile differences) Changes to medication lists made Update dose, frequency, duration and/or dosage form of medication Discontinue or remove medication Add or renew medication /es/ BIN SWENSON CLINICAL PHARMACIST Signed: 09/01/2024 15:57 Receipt Acknowledged By: 09/02/2024 11:14 /santiago/ SHANELLE MOREAU MANAGER INPATIENT 09/02/2024 08:36 /es/ ABIGAIL ÁLVAREZ PHYSICIAN 09/02/2024 08:34 /es/ HENRIQUE CONRAD REGISTERED NURSE for BIN HERNANDEZ [facility]
--- OUTSIDE RECORDS SUMMARY | 2024-09-25 16:06 | XMS_ITS | Encounter Summary ---
Author Name [facility] [place] [facility] [place] Address [address] [place] [address] Care Team Providers Care Hole Digger Name Role Phone ABIGAIL PERALTA Primary Care [...] PART A Feb 07, 2007 PART A [id number] [phone] ALIYAH COREY PATIENT MEDICARE (WNR) MEDICARE (M) PART A Feb 07, 2007 PART A [id number] [phone] ASHWINI COREYALD PATIENT Selected Encounter This section includes the information on record at [place] for the Encounter. Date/Time Encounter Type Encounter Description Reason Provider Source Feb 17, 2024 02:00 PM OFFICE O/P EST MOD 30 MIN GERIPACT ICD-10-CM I10 Essential (primary) hypertension ABIGAIL PERALTA HASQUIANA IHE Encounter Template Text not used by [place] Assessments - Encounter Diagnoses This section includes the primary and secondary diagnoses documented for the Encounter. Date/Time Primary/Secondary Diagnosis Diagnosis Name Provider Source Feb 17, 2024 03:09 PM PRIMARY Essential (primary) hypertension ABIGAIL PERALTA [facility] Feb 17, 2024 03:09 PM SECONDARY Localized edema [facility] Plan of Treatment: Future Appointments (+ 6 months) and Future Tests (+/- 45 days) The Plan of Treatment section includes future care activities for the patient from all [place] treatmentfacilities. This section includes future appointments and future orders which are active, pending or scheduled. Future Appointments This section includes appointments that were scheduled to occur 6 months from the date of the Encounter, up to a maximum of 20 appointments. The data comes from all [place] treatment facilities. Appointment Date/Time Appointment Type Appointme nt Facility Name Mar 02, 2024 01:00 PM AMBULATORY - MEDICINE [facility] Mar 12, 2024 09:00 AM AMBULATORY - MEDICINE [facility] Mar 29, 2024 08:00 AM AMBULATORY - MEDICINE [facility] [place], [facility] May 03, 2024 10:40 AM AMBULATORY - SURGERY [facility] May 10, 2024 09:00 AM AMBULATORY - MEDICINE [facility] [place], [facility] May 24, 2024 02:00 PM AMBULATORY - MEDICINE [facility] [place], [facility] Jun 21, 2024 01:30 PM [facility] Jun 21, 2024 02:00 PM [facility] Jun 21, 2024 03:00 PM AMBULATORY - PSYCHIATRY [facility] Jul 29, 2024 01:00 PM AMBULATORY - MEDICINE [facility] [place], [facility] Jul 29, 2024 02:00 PM AMBULATORY - MEDICINE [facility] [place], [facility] Aug 10, 2024 08:00 AM AMBULATORY - MEDICINE [facility] [place], [facility] Aug 11, 2024 11:00 AM AMBULATORY - NONE [facility] Lab Results: +/- 30 days of the encounter This section includes the Chemistry and Hematology Lab Results on record with [place] for the patient. Radiology Reports and Pathology Reports are provided separately, in subsequent sections. Lab Results This section contains the Chemistry/Hematology Results that were resulted 30 days before or 30 daysafter the date of the Encounter. Date/Time Source Result Type Result - Unit Interpretation Reference Range Specimen Type Comment Feb 11, 2024 10:[address] [facility] VITAMIN B12 SERUM Specimen Type: SERUM No comment entered. Ordering Provider: ABIGAIL PERALTA Report Released Date/Time: Aug 26, 2023 02:34 PM Reporting Lab: [address] [address] Performing Lab: [address] [address] VITAMIN B12 285 pg/mL [id number] Feb 11, 2024 10:[address] [facility] CMP-NONFASTING (CO) PLASMA Specimen Type: PLAS MA No comment entered. Ordering Provider: ABIGAIL PERALTA Report Released Date/Time: Aug 26, 2023 02:34 PM Reporting Lab: [address] [address] Performing Lab: [address] [address] *CREATININE 1.05 mg/dL 0.7-1.3 UREA NITROGEN mg/dL [...] 51 U/L 40-150 EGFR (CKD-EPI 2020) 71 Vital Signs: All taken on the encounter date This section contains inpatient and outpatient Vital Signs collected on the date of the Encounter. Date/Time Temperature Pulse Blood Pressure Respiratory Rate SP02 Pain Height Weight Body Mass Index Source Feb 17, 2024 02:00 PM 55 108/66 [facility] Feb 17, 2024 02:00 PM 98.2 51 125/72 97 0 198 31 [facility] Advance Directives: All historical and current Section Date Range: From patient's date of to the date document was created. This section includes ALL of a patient's completed or amended [place] Advance and Rescinded Directives. The entries below indicate that a directive exists for the patient, but an actual copy is not included with this document. The data comes from all [facility]. Date Advance Directives Provider Source October 22, 2022 ADVANCE DIRECTIVE DISCUSSION ARGELIA CHAVEZ [facility], [facility] Apr 04, 2022 ADVANCE DIRECTIVE DISCUSSION RAY ROQUE [facility], [facility] Sep 30, 2020 ADVANCE DIRECTIVE DISCUSSION ILYA BROWN [facility] Jul 26, 2020 ADVANCE DIRECTIVE DISCUSSION FABY TAMEZ [facility] Apr 17, 2020 ADVANCE DIRECTIVE DISCUSSION LINETTE RAMIREZ [facility] Jan 17, 2020 ADVANCE DIRECTIVE DISCUSSION LINETTE RAMIREZ [place], [facility] Feb 24, 2009 ADVANCE DIRECTIVE HECTOR [facility] [place], [facility] Pathology Reports: +/- 30 days [...] the Encounter. The data comes from all [facility]. Date/Time Pathology Report Provider Source Mar 17, 2024 08:08 AM LR SURGICAL PATHOL OGJoaquim REPORT: LOCAL TITLE: LR SURGICAL PATHOLOGY REPORT [...] - - - - - - SEE [employer] IMAGING FOR SCANNED REPORT /santiago/ JOANA DANIELSON [facility] DIRECTOR OF PATHOLOGY Signed Mar 17, 2024@08:08 Performing Laboratory: Surgical Pathology Report Performed By: [employer] [CLIA# [id number]] [address] [address] $FTR - - - - - - [...] - - ALIYAH COREY STANDARD FORM 515 ID:[id number] SEX:M :1940 AGE: 84 LOC:*DENTAL PCP: Abigail Peralta /santiago/ JOANA HARRIS DIRECTOR OF PATHOLOGY Signed: 03/17/2024 08:08 JOANA HARRIS [facility] Encounter Notes: All associated encounter notes This section contains the clinical notes associated to the Encounter. Date/Time Encounter Note(s) Provider Source Feb 17, 2024 02:16 PM GERIATRIC MEDICINE INITIAL EVALUATION NOTE: LOCAL TITLE: CO-PC GERIATRIC COMPREHENSIVE ASSESSMENT (D) STANDARD TITLE: GERIATRIC MEDICINE INITIAL EVALUATION NOTE DATE OF NOTE: FEB 17, 2024@14:16 ENTRY DATE: FEB 17, 2024@14:16:17 AUTHOR: ABIGAIL PERALTA EXP COSIGNER: URGENCY: STATUS: [...] Hiatal hernia GERD - Gastro-Esophageal Reflux Disease ([facility] [id number]) Constipation Exposure to potentially hazardous substance Difficulty in Walking, not elsewhere classified Your lab results are as follows: 02/11/24 10:36 VITAMIN B12 285 02/11/24 10:36 GLUCOSE 98 02/11/24 10:36 UREA NITROGEN mg/d 16 02/11/24 10:36 *CREATININE 1.05 02/11/24 10:36 SODIUM 138 02/11/24 10:36 POTASSIUM 4.6 02/11/24 10:36 CALCIUM (mg/dL) 9.2 02/11/24 10:36 PROTEIN,TOTAL 6.7 02/11/24 10:36 ALBUMIN 4.4 02/11/24 10:36 TOTAL BILIRUBIN 0.7 02/11/24 10:36 ASPARTATE TRANSAMI 10 02/11/24 10:36 ALANINE AMINOTRANS 7L 02/11/24 10:36 CHLORIDE 107 02/11/24 10:36 CO2 24 02/11/24 10:36 ALKALINE PHOSPHATA 51 02/11/24 10:36 EGFR (CKD-EPI 2020 71 05/31/21 Surgical Path results availableUPDATED MEDICATION LIST: Active Outpatient Medications (including Supplies): Active Outpatient Medications Status 1) AMLODIPINE BESYLATE 10MG TAB TAKE ONE TABLET BY MOUTH ACTIVE EVERY MORNING FOR HEART/BLOOD PRESSURE 2) CARBOXYMETHYLCELLULOSE NA 0.5%(PF)OP JOSE INSTILL 1 ACTIVE DROP IN BOTH EYES FOUR TIMES A DAY FOR DRY EYES 3) CLOPIDOGREL BISULFATE 75MG TAB TAKE ONE [...] FOR HEART OR HIGH BLOOD PRESSURE 7) NITROGLYCERIN 0.4MG SL TAB DISSOLVE ONE TABLET UNDER ACTIVE THE TONGUE EVERY MORNING NEEDED FOR CHEST PAIN. IF NO IMPROVEMENT AFTER FIRST DOSE CALL --1. MAY TAKE 2 ADDITIONAL DOSES, 5 MINUTES APART. 8) RANOLAZINE 1000MG SA TAB TAKE ONE TABLET BY MOUTH TWO ACTIVE TIMES A DAY FOR HEART/PREVENT CHEST PAIN, *SWALLOW WHOLE- DO NOT CRUSH,BREAK OR CHEW* 9) ROSUVASTATIN CA 40MG TAB TAKE ONE TABLET BY MOUTH AT ACTIVE BEDTIME FOR CHOLESTEROL. REPORT ANY UNEXPLAINED MUSCLE PAIN OR WEAKNESS TO YOUR DOCTOR. 10) TAMSULOSIN HCL 0.4MG CAP TAKE ONE CAPSULE BY MOUTH ACTIVE ONCE A DAY FOR PROSTATE TAKE WITH FOOD Pending Outpatient Medications Status 1) CHOLECALCIF 25MCG (D3-1,000UNIT) TAB TAKE ONE TABLET PENDING BY MOUTH EVERY MORNING Active Non-VA Medications Status 1) Non-VA ASPIRIN 81MG EC TAB 81MG MOUTH ONCE A DAY ACTIVE 12 Total Medications Allergies/Adverse Reactions: Patient has answered NKA __ PHYSICAL EXAM: DATE/TIME TEMP PULSE RESP BP PAIN WEIGHT PUL OX 02/17/24 @ 1400 55 108/66 02/17/24 @ 1400 98.2 51 125/72 0 198 97 02/17/24 @ 0803 98.2 43 158/76 96 01/29/24 @ 1328 97.0 52 20 121/66 0 200.2 95 09/26/23 @ 0933 97.3 50 12 119/59 0 97 09/26/23 @ 0747 97.6 51 12 137/64 0 203.5 96 GENERAL: No acute distress, pleasant, alert HEAD: Normocephalic/atraumatic EYES: No scleral icterus/redness, no lid abnormality LUNGS: CTA,resp reg and nonlabored, HEART: RRR, no S3/S4, flow murmur Ext: 1+ LE edema b/l History Reviewed MOCA () NUTRITION: Patient Height: 67 in [170.2 cm] (09/26/2023 07:47) Patient Current Weight: 90.00 kg. [198 lb.] (FEB 17, 2024@14:00:35) BMI: 31.1 ADLs: Independent IADLs: Independent PERSONAL HISTORY: Patient currently lives with his in a single-family residence in [place], [place]. Patient and his of 40 years have two adult children, one lives in [place], [place], and maintains regular contact with him. Patient also has three adult children from his first marriage. Patient completed 12 years of formal education, as well as some college courses in business administration and accounting. Patient was employed by the [employer] and [employer]. He retired for age in 1999. Patient served in the [employer] from [id number]. 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 HTN 2. Localized edema PLAN: 1. Stable, advised to continue current management. 2.I advised him to have daily walk with intermittent rest. I advised to do regular leg elevation for 30 minutes, 3 times a day, every day and use compression stockings. Other: hearing exam advised. Vit D def- Vit D prescribed. Advised to decrease alcholol intake to 1 drink per day * Reviewed medications with patient. TIME SPENT WITH PATIENT: [id number] 55 Minutes over 50% time spend reviewing changes in plan of care/education r/t health issues presented during clinic visit (Patient was also evaluated by [employer] today(please see notes) Return to clinic (see orders) /santiago/ ABIGAIL PERALTA PHYSICIAN Signed: 02/17/2024 15:[address] [facility] Feb 17, 2024 01:55 PM NURSING OUTPATIENT NOTE: LOCAL TITLE: CO-PC NURSE NOTE (D) STANDARD TITLE: NURSING OUTPATIENT NOTE DATE OF NOTE: FEB 17, 2024@13:55 ENTRY DATE: FEB 17, 2024@13:55:45 AUTHOR: ERIK KELLY COSIGNER: URGENCY: STATUS: COMPLETED Patient Identifiers : Full Name, Date of Reason for visit: Established Follow-Up Visit Objective What is most important for you to get out of today's visit? Rosa Elena pact f/u Mode of Arrival: Ambulatory Does patient have both fever AND new or worsening cough or shortness of breath? No Is there anything in your life that is causing you any kind of stress? Patient stated that there are no stressful situations at this time. Allergy Review: Patient has answered NKA Allergy list reviewed and remains current. Are you registered for [employer] ([facility])? Yes - Do you have an upgraded account which gives you the added benefit of Secure Messaging with your Primary Care Provider? Yes - Done Is patient on oxygen? No Is patient receiving longterm care? No Is patient using the services of a home health aide? No Healthy Living Screening DATE OF SEPARATION: Dec BMI: 31.4 Supplements/medications taken by the patient: None https://www.cdc.gov/vaccines/hc p/vis/ ...Skin Risk Assessment please answer all questions Are you confined mostly to your wheelchair? No Do you have accidents with your urine? No Do you have accidents with your bowel? No Do you have a pressure ulcer (bedsore)? No NAIK FALL SCALE The Naik Fall scale was performed and score was 15. This is indicative of low risk of falls. History of falling: immediate or within 3 months? No Secondary diagnosis: Yes Ambulatory aid: None/bedrest/nurse assist Intravenous therapy/Heparin lock: No Gait/Transferring: Normal/bed rest/immobile Mental Status: Oriented to own ability/knows own limitations <*> If patient is HIGH RISK, IMMEDIATELY open another session of CPRS and enter a CO-HIGH RISK note on this patient. OUTPATIENT MALNUTRITION SCREENING TOOL Have you been eating poorly because of decreased appetite? No Have you lost weight in the past 6 months without trying? No Do you have any other nutrition questions or concerns that you would like to have a dietitian contact you about? No Time spent with the contact: 5-10 minutes. CO-HEALTHY LIVING SCREEN: === NEUROPSYCHOSOCIAL === Patient oriented to time: YES Patient oriented to place: YES Patient oriented to person: YES === ADVANCE DIRECTIVE === Do you have an Advance Directive? Yes Would you like someone to contact you about one? No Did you bring a copy to place in your medical record? Yes Are you interested in becoming an organ donor? No === PATIENT EDUCATION === Has the patient received a copy of the Healthy Living Pamphlet? YES Were the patient's questions regarding health care and this survey discussed to the patient's satisfaction? Yes Patient's Preferred Health Care Language is: alphacityguides - Health Factor Select 04/04/2022 Tanzanian Tanzanian Patient is ready to learn. Patient reads well. Barriers to Learning: Has decreased vision Specific problem: reading glasses Preferred Method of Learning: Computer-Assisted Patient's Support Person and NOK: MARY COREY SPOUSE [address] [place] [id number] RHS Screen: RHS Screen Session Format: Face to Face Environmental Check Upon inquiry, the individual reports that the environment is safe to proceed. Informed Consent to Screen and Document The individual consents to proceed with screening. The individual consents to documentation of responses. PRIMARY SCREEN: In the past 12 months, how often did a current or former intimate partner (e.g., boyfriend, girlfriend, , , sexual partner): 1. Scream or curse at you Never 2. Insult or talk down to you Never 3. Threaten you with harm Never 4. Physically hurt you Never 5. Force or pressure you to have sexual contact against your will, or when you were unable to say no Never The HITS tool (items 1-4 above) is [place] copyright protected by Trey Chavez MD, and the user has full rights to use it throughout the [place] system. PRIMARY SCREEN RESULT: The Primary Screen is NEGATIVE. The individual answered never to all forms of IPV above (i.e., answered never to all 5 items) The individual accepts education and/or resources: No EDUCATION: Other: Suicide Screen: C-SSRS Screening Schulter Suicide Severity Rating Scale (C-SSRS) screener 1. [...] required due to responses to other questions. Sexual Orientation: The patient thinks of their sexual orientation as: Straight or Heterosexual /es/ ERIK KELLY LICENSED PRACTICAL NURSE Signed: 02/17/2024 14:[address] [facility]
--- OUTSIDE RECORDS SUMMARY | 2024-09-25 16:07 | XMS_ITS | Encounter Summary ---
Author Name [facility] [place] [facility] [place] Address [address] [place] [address] Care Team Providers Care Professor Of Genetics Name Role Phone ABIGAIL ÁLVAREZ Primary Care [...] PART A Feb 07, 2007 PART A [id number] [phone] ALIYAH MANDEL PATIENT MEDICARE (WNR) MEDICARE (M) PART A Feb 07, 2007 PART A [id number] [phone] TEQUILA ALIYAH PATIENT Selected Encounter This section includes the information on record at [place] for the Encounter. Date/Time Encounter Type Encounter [...] 20 appointments. The data comes from all [facility]. Appointment Date/Time Appointment Type Appointme nt Facility Name Sep 02, 2024 01:00 PM AMBULATORY - NONE [facility] Sep 13, 2024 02:00 PM AMBULATORY - MEDICINE [facility] October 08, 2024 10:30 AM AMBULATORY - MEDICINE [facility] October 12, 2024 09:00 AM AMBULATORY - NONE [facility] October 12, 2024 10:00 AM [facility]ORY - NONE [facility] October 25, 2024 02:00 PM AMBULATORY - SURGERY [facility] Nov 15, 2024 02:00 PM AMBULATORY - MEDICINE [facility] Dec 13, 2024 10:00 AM AMBULATORY - MEDICINE [facility] Dec 21, 2024 10:30 AM AMBULATORY - MEDICINE [facility] Feb 15, 2025 10:00 AM AMBULATORY - MEDICINE [facility] Feb 15, 2025 11:00 AM AMBULATORY - NONE [facility] Active, Pending, and Scheduled Orders This section includes a listing of several types of active, pending, and scheduled orders, including clinic medications orders, diagnostic test orders, procedure orders and consult orders; where the start date of the order is 45 days before the date of the Encounter or 45 days after the date of theEncounter. The data comes from all [facility]. Test Date/Time Test Type Test Details Facility Name Jul 29, 2024 02:19 PM Procedure Order CP CO-ECHO FUTURE CARE ([place]) CP CO-ECHO FUTURE CARE-[id number] Proc Quality Assurance Qa Lab Analyst's Choice [facility] Jul 29, 2024 02:19 PM Procedure Order EKG OUTPAT IENT-CO EKG Needed on: Jul Urgency: ROUTINE Diagnosis/Reason: Ischemia (125.9) [facility] Aug 31, 2024 12:48 AM Laboratory - Blood Bank Order TYPE & SCREEN - LAB BLOOD,PINK/PURPLE (7-9ML) WC [facility] Lab Results: +/- 30 days of the encounter This section includes the Chemistry and Hematology Lab Results on record with [place] for the patient. Radiology Reports and Pathology Reports are provided separately, in subsequent sections. Lab Results This section contains the Chemistry/Hematology Results that were resulted 30 days before or 30 daysafter the date of the Encounter. Date/Time Source Result Type Result - Unit Interpretation Reference Range Specimen Type Comment Sep 01, 2024 03:14 AM [facility] MAGNESIUM (mg/dL) PLASMA Specimen Type: PLASMA No comment entered. Ordering Provider: LEEROY HUGHES Report Released Date/Time: Aug 31, 2024 09:28 AM Reporting Lab: [address] [phone] Performing Lab: [address] [phone] MAGNESIUM (mg/dL) 2.1 mg/dL 1.6-2.6 Sep 01, 2024 03:14 AM [facility] COMPREHENSIVE METABOLIC PANEL PLASMA Specimen Type: PLASMA No comment entered. Ordering Provider: LEEROY HUGHES Report Released Date/Time: Aug 31, 2024 09:28 AM Reporting Lab: [address] [address] Performing Lab: [address] [phone] *CREATININE 1.12 mg/dL 0.70-1.30 UREA NITROGEN mg/dL [...] 2020) 66 Sep 01, 2024 03:14 AM [facility] CBC & DIFF BLOOD Specimen Type: BLOOD No comment entered. Ordering Provider: LEEROY HUGHES Report Released Date/Time: Aug 31, 2024 09:28 AM Reporting Lab: [address] [phone] Performing Lab: [address] WBC 15.00 10*3/uL H 3.6-11.2 RBC [...] % 0.6 Aug 31, 2024 05:45 AM [facility] ANTI-Xa ([place]) BLOOD Specimen Type: BLOOD Comment: Critical Values: Unfractionated Heparin: > 1.0 IU/mL For Low Molecular Weight Heparin reference ranges contact lab. Ordering Provider: LARRY BARRIOS Report Released Date/Time: Aug 27, 2024 12:18 PM Reporting Lab: [address] Performing Lab: [address] ANTI-Xa ([place]) <0.04 [IU]/mL 0.3-0.7 Aug 31, 2024 05:45 AM [facility] MAGNESIUM (mg/dL) PLASMA Specimen Ty pe: PLASMA No comment entered. Ordering Provider: LEEROY HUGHES Report Released Date/Time: Aug 30, 2024 11:25 AM Reporting Lab: [address] [address] Performing Lab: [address] [phone] MAGNESIUM (mg/dL) 2.2 mg/dL 1.6-2.6 Aug 31, 2024 05:45 AM [facility] COMPREHENSIVE METABOLIC PANEL PLASMA Specimen Type: PLASMA No comment entered. Ordering Provider: LEEROY HUGHES Report Released Date/Time: Aug 30, 2024 11:25 AM Reporting Lab: [address] Performing Lab: [address] *CREATININE 1.04 mg/dL 0.70-1.30 UREA NITROGEN [...] 2020) 72 Aug 31, 2024 05:45 AM [facility] CBC & DIFF BLOOD Specimen Type: BLOOD No comment entered. Ordering Provider: LEEROY HUGHES Report Released Date/Time: Aug 30, 2024 11:25 AM Reporting Lab: [address] [phone] Performing Lab: [address] [phone] WBC 9.50 10*3/uL 3.6-11.2 RBC 4.12 10*6/uL [...] % 0.7 Aug 30, 2024 04:23 AM [facility] CMP-NONFASTING ([place]) PLASMA Specimen Type: PLASMA No comment entered. Ordering Provider: LARRY BARRIOS Report Released Date/Time: Aug 29, 2024 12:07 PM Reporting Lab: [address] [address] Performing Lab: [address] [address] *CREATININE 1.10 mg/dL 0.70-1.30 UREA NITROGEN mg/dL [...] 2020) 67 Aug 30, 2024 04:23 AM [facility] CBC & DIFF BLOOD Specimen Type: BLOOD No comment entered. Ordering Provider: LARRY BARRIOS Report Released Date/Time: Aug 29, 2024 12:07 PM Reporting Lab: [address] [address] Performing Lab: [address] [address] WBC 8.80 10*3/uL 3.6-11.2 RBC 3.99 10*6/uL [...] % 0.9 Aug 29, 2024 04:23 AM [facility] CMP-NONFASTING ([place]) PLASMA Specimen Type: PLASMA No comment entered. Ordering Provider: LARRY BARRIOS Report Released Date/Time: Aug 28, 2024 10:54 AM Reporting Lab: [address] [address] Performing Lab: [address] [address] *CREATININE 1.04 mg/dL 0.70-1.30 UREA NITROGEN mg/dL [...] 2020) 72 Aug 29, 2024 04:23 AM [facility] CBC & DIFF BLOOD Specimen Type: BLOOD No comment entered. Ordering Provider: LARRY BARRIOS Report Released Date/Time: Aug 28, 2024 10:54 AM Reporting Lab: [facility] [address] [facility] [address] Performing Lab: [address] [address] WBC 8.50 10*3/uL 3.6-11.2 RBC 4.28 10*6/uL [...] % 0.6 Aug 28, 2024 04:50 AM [facility] T4 FREE SERUM Specimen Type: SERUM No comment entered. Ordering Provider: LARRY BARRIOS Report Released Date/Time: Aug 27, 2024 03:47 PM Reporting Lab: [place] [phone] Performing Lab: [place] [phone] T4 FREE 0.8 ng/dL 0.7-1.48 Aug 28, 2024 04:50 AM [facility] TSH SERUM Specimen Type: SERUM No comment entered. Ordering Provider: LARRY BARRIOS Report Released Date/Time: Aug 27, 2024 03:47 PM Reporting Lab: [address] [address] Performing Lab: [place] [phone] *TSH 1.66 u[IU]/mL 0.47-5.00 Aug 28, 2024 04:50 AM [facility] CMP-NONFASTING ([place]) PLASMA Specimen Type: PLASMA No comment entered. Ordering Provider: LUIS YANES Report Released Date/Time: Aug 28, 2024 03:03 AM Reporting Lab: [address] [address] Performing Lab: [place] [phone] *CREATININE 0.87 mg/dL 0.70-1.30 UREA NITROGEN mg/dL [...] 2020) 86 Aug 28, 2024 04:50 AM [facility] CBC & DIFF BLOOD Specimen Type: BLOOD No comment entered. Ordering Provider: LUIS YANES Report Released Date/Time: Aug 28, 2024 03:03 AM Reporting Lab: [address] [address] Performing Lab: [address] [address] WBC 9.20 10*3/uL 3.6-11.2 RBC 4.23 10*6/uL [...] % 0.5 Aug 27, 2024 02:14 PM [facility] ACT.CLOTTING TIME BLOOD Specimen Ty pe: BLOOD No comment entered. Ordering Provider: JEROME DOTY Report Released Date/Time: Aug 27, 2024 02:44 PM Reporting Lab: [address] [address] Performing Lab: [address] [address] ACT.CLOTTING TIME 153 s H 74-137 Aug 27, 2024 11:30 AM [facility] hsTROP-CO PLASMA Specimen Type: PLASMA Comment: TROP-T-HS Called to: Velvet Bartlett RN at: 1213 on: 08/27/24 by: Jasvir Cunningham Result read back to comply with Joint Commission Ordering Provider: LARRY BARRIOS Report Released Date/Time: Aug 27, 2024 09:20 AM Reporting Lab: [address] Performing Lab: [place] [phone] hsTROP-CO 1017 HH See Interpretation Aug 27, 2024 08:55 AM [facility] MRSA SURVL NARES DNA NARES Specimen Type: NARES No comment entered. Ordering Provider: JEROME DOTY Report Released Date/Time: Aug 27, 2024 08:46 AM Reporting Lab: [address] Performing Lab: [place] [phone] MRSA SURVL NARES DNA Negative Negative Aug 27, 2024 08:20 AM [facility] URINALYSIS (ZOIL[place],EK) URINE Spec imen Type: URINE Comment: Microscopic not indicated Ordering Provider: RYAN HALL Report Released Date/Time: Aug 27, 2024 06:51 AM Reporting Lab: [address] Performing Lab: [address] *URINE COLOR Light-Yellow *URINE APPEARANCE Clear Clear *URINE PROTEIN Negative mg/dL Negative-T race *URINE LEUKOCYTE Negative Negative *URINE NITRITE Negative Negative *URINE BLOOD Negative Negative *URINE GLUCOSE Negative mg/dL Negative *URINE KETONES Negative mg/dL Negative *URINE PH 7.0 5.0-8.0 *URINE SPECIFIC GRAVITY 1.011 1.005-1. 030 *URINE BILIRUBIN Negative Negative *URINE UROBILINOGEN Normal mg/dL Normal Aug 27, 2024 06:40 AM [facility] PT/INR PLASMA Specimen Type: PLASMA No comment entered. Ordering Provider: RYAN HALL Report Released Date/Time: Aug 27, 2024 06:51 AM Reporting Lab: [address] Performing Lab: [place] [phone] *INR 1.0 {INR} *PT 11.4 s 9.4-12.5 Aug 27, 2024 06:40 AM [facility] COMPREHENSIVE METABOLIC PANEL PLASMA Specimen Type: PLASMA No comment entered. Ordering Provider: RYAN HALL Report Released Date/Time: Aug 27, 2024 06:51 AM Reporting Lab: [address] [address] Performing Lab: [place] [phone] *CREATININE 1.14 mg/dL 0.70-1.30 UREA NITROGEN mg/dL [...] 2020) 64 Aug 27, 2024 06:40 AM [facility] APTT PLASMA Specimen Type: PLASMA No comment entered. Ordering Provider: RYAN HALL Report Released Date/Time: Aug 27, 2024 06:51 AM Reporting Lab: [address] Performing Lab: [place] [phone] APTT 29.8 s 26.7-39.9 Aug 27, 2024 06:40 AM [facility] hsTROP-CO PLASMA Specimen Type: PLASMA No comment entered. Ordering Provider: RYAN HALL Report Released Date/Time: Aug 27, 2024 06:51 AM Reporting Lab: [address] Performing Lab: [place] [phone] hsTROP-CO 15 See Interpretation Aug 27, 2024 06:40 AM [facility] NTproBNP ([place]) PLASMA Specimen Typ e: PLASMA No comment entered. Ordering Provider: RYAN HALL Report Released Date/Time: Aug 27, 2024 06:51 AM Reporting Lab: [address] [phone] Performing Lab: [address] NTproBNP ([place]) 410 pg/mL -See Interpre tation Aug 27, 2024 06:40 AM [facility] CBC & DIFF BLOOD Specimen Type: BLOOD No comment entered. Ordering Provider: RYAN HALL Report Released Date/Time: Aug 27, 2024 06:51 AM Reporting Lab: [place] [phone] Performing Lab: [place] [phone] WBC 15.70 10*3/uL H 3.6-11.2 RBC 4.80 [...] 0.00 -0.20 Aug 27, 2024 06:40 AM [facility] ANTI-Xa ([place]) BLOOD Specimen Type: BLOOD Comment: Critical Values: Unfractionated Heparin: > 1.0 IU/mL For Low Molecular Weight Heparin reference ranges contact lab. Ordering Provider: RYAN HALL Report Released Date/Time: Aug 27, 2024 07:24 AM Reporting Lab: [address] [phone] Performing Lab: [address] [address] ANTI-Xa ([place]) <0.04 [IU]/mL 0.3-0.7 Aug 27, 2024 06:40 AM [facility] PATHOLOGIST REVIEW BLOOD Specimen T ype: BLOOD Comment: Reviewed by Dr. Chepe Yu: Reactive Lymphocytes. Ordering Provider: RYAN HALL Report Released Date/Time: Aug 27, 2024 06:51 AM Reporting Lab: [address] [phone] Performing Lab: [address] [phone] PATHOLOGIST REVIEW comment Vital Signs: All taken on the encounter date This section contains inpatient and outpatient Vital Signs collected on the date of the Encounter. Date/Time Temperature Pulse Blood Pressure Respiratory Rate SP02 Pain Height Weight Body Mass Index Source Aug 27, 2024 08:00 PM 97.7 51 138/[address] [facility] Aug 27, 2024 08:30 AM 65 138/[address] [facility] Aug 27, 2024 08:30 AM 96.8 68 135/74 [address] [facility] Aug 27, 2024 08:[address] [facility] Aug 27, 2024 08:15 AM 74 135/[address] [facility] Social History: Smoking Status (Most current) and Tobacco Use (All prior to encounter date) This section includes the most current, and the historical, smoking and tobacco- related health factors from the [place] facility where the Encounter took place. Current Smoking Status This section includes the most current smoking, or tobacco-related health factor, from the [place] facility where the Encounter took place. Date/Time Current Smoking Status Comment Facil ity Apr 30, 2023 01:00 PM VA-TOBACCO FORMER USER [facility] Tobacco Use History This section includes a history of the smoking, or tobacco-related health factors, that were collected on or before the date of the Encounter. The data comes from the [place] facility where the Encounter took place. Date/Time Smoking Status/Tobacco Use Comment F acility Apr 30, 2023 01:00 PM VA-TOBACCO QUIT 15 YRS OR MORE [facility] Apr 04, 2022 09:15 AM VA-TOBACCO FORMER USER [facility] Apr 04, 2022 09:15 AM VA-TOBACCO QUIT 15 YRS OR MORE [facility] Jul 18, 2021 10:13 AM INPT TOBACCO SCREENED NEGATIVE [facility] Apr 27, 2021 07:00 AM INPT TOBACCO SCREENED NEGATIVE [facility] October 31, 2020 02:30 PM INPT TOBACCO SCREENED NEGATIVE [facility] October 08, 2020 10:22 AM INPT TOBACCO SCREENED NEGATIVE [facility] October 07, 2020 07:22 AM VA-TOBACCO FORMER USER [facility] Sep 30, 2020 11:06 AM INPT TOBACCO SCREENED NEGATIVE [facility] Sep 29, 2020 04:05 PM VA-TOBACCO NEVER USED [facility] Jan 17, 2020 10:21 AM VA-TOBACCO FORMER USER [facility] Jan 17, 2020 10:21 AM VA-TOBACCO QUIT 15 YRS OR MORE [facility] Advance Directives: All historical and current Section Date Range: From patient's date of to the date document was created. This section includes ALL of a patient's completed or amended [place] Advance and Rescinded Directives. The entries below indicate that a directive exists for the patient, but an actual copy is not included with this document. The data comes from all [place] facilities. Date Advance Directives Provider Source October 22, 2022 ADVANCE DIRECTIVE DISCUSSION ARGELIA CHAVEZ [facility] Apr 04, 2022 ADVANCE DIRECTIVE DISCUSSION RAY ROQUE [facility] Sep 30, 2020 ADVANCE DIRECTIVE DISCUSSION ILYA BROWN [facility] Jul 26, 2020 ADVANCE DIRECTIVE DISCUSSION FABY TAMEZ [facility] Apr 17, 2020 ADVANCE DIRECTIVE DISCUSSION LINETTE RAMIREZ [facility] Jan 17, 2020 ADVANCE DIRECTIVE DISCUSSION LINETTE RAMIREZ [facility] Feb 24, 2009 ADVANCE DIRECTIVE HECTOR [facility] Radiology Reports: +/- 30 days [...] the Encounter. The data comes from all [place] treatment facilities. Date/Time Radiology Report Provider Source Sep 01, 2024 06:18 AM CHEST 2 VIEWS: ALIYAH MANDEL [id number] -1940 M Exm Date: SEP 01, 2024@06:18 Req Phys: TERRELL GUO Loc: ICU PCU MED-CO/09-01-2024@07:2 Img Loc: CO-EXERCISE RIDER Service: [facility] [place] [address] (Case [id number] COMPLETE) CHEST 2 VIEWS (RAD Detailed) CPT:00355 Reason for Study: Assess pulmonary status S/P Pacemaker/AICD implant Clinical History: Morning after procedure DO NOT raise left arm above shoulder level. Report Status: Verified Date Reported: SEP 01, 2024 Date Verified: SEP 01, 2024 Chief Engineer Waterworks E-Sig:/ES/Aubrie Garcia MD PhD Report: History: Pacemaker [...] Aubrie Garcia MD PhD, CHIEF, CLINICAL SUPPORT (Chief Engineer Waterworks) /MDT AUBRIE GARCIA [facility] Aug 31, 2024 04:27 PM CHEST 1 VIEW: ALIYAH MANDEL [id number] -1940 M Exm Date: AUG 31, 2024@16:27 Req Phys: TERRELL GUO Loc: ICU PCU MED-CO/09-01-2024@07:2 Img Loc: CO-EXERCISE RIDER [facility] [address] (Case [id number] COMPLETE) CHEST 1 VIEW (RAD Detailed) CPT:28919 Proc Modifiers : PORTABLE Reason for Study: s/p pacemaker Clinical History: Report Status: Verified Date Reported: SEP 01, 2024 Date Verified: SEP 01, 2024 Chief Engineer Waterworks E-Sig:/ES/Aubrie Garcia MD PhD Report: History: Pacemaker [...] Aubrie Garcia MD PhD, CHIEF, CLINICAL SUPPORT (Chief Engineer Waterworks) /[facility] Aug 31, 2024 05:05 AM CHEST 1 VIEW: ALIYAH MANDEL JAMIN [id number] -1940 M Exm Date: AUG 31, 2024@05:05 Req Phys: LEEROY HUGHES Pat Loc: ICU PCU MED-CO/08-31-2024@07:3 Img Loc: CO-EXERCISE RIDER Service: [facility] [place] [address] (Case [id number] COMPLETE) CHEST 1 VIEW (RAD Detailed) CPT:06646 Reason for Study: Assess pulmonary function s/p pacemaker AICD placement Clinical History: Report Status: Verified Date Reported: AUG 31, 2024 Date Verified: AUG 31, 2024 Chief Engineer Waterworks E-Sig:/ES/Aubrie Garcia MD PhD Report: History: AICD [...] Aubrie Garcia MD PhD, CHIEF, CLINICAL SUPPORT (Chief Engineer Waterworks) /[facility] Aug 27, 2024 06:51 AM CHEST 1 VIEW: ALIYAH MANDEL [id number] -1940 M Exm Date: AUG 27, 2024@06:51 Req Phys: RYAN HALL Pat Loc: CO-ED (Req'g Loc) Img Loc: CO-EXERCISE RIDER Service: [place] [address] (Case [id number] COMPLETE) CHEST 1 VIEW (RAD Detailed) CPT:28636 Proc Modifiers : PORTABLE Reason for Study: vtach Clinical History: If ordering Portable X-Ray call Tech at [id number] for prompt response Report Status: Verified Date Reported: AUG 27, 2024 Date Verified: AUG 27, 2024 Chief Engineer Waterworks E-Sig:/ES/Aubrie Garcia MD PhD Report: History: Ventricular tachycardia. Single view of the chest. Comparison: 05/20/2023. Findings: Lungs are clear. Mild cardiomegaly without pulmonary edema. Soft tissues are unremarkable. Atherosclerosis. Osseous structures demonstrate degenerative changes. Impression: Mild cardiomegaly without pulmonary edema. READING PHYSICIAN: Aubrie Garcia 08/27/2024 7:29 AM Primary Diagnostic Code: NO ALERT REQUIRED Primary Interpreting Staff: Aubrie Garcia MD PhD, CHIEF, CLINICAL SUPPORT (Chief Engineer Waterworks) /[facility]
--- OUTSIDE RECORDS SUMMARY | 2024-09-25 16:07 | XMS_ITS | Encounter Summary ---
Author Name [facility] [place] [facility] [place] Address [address] [place] [address] Care Team Providers Care Security Door Installer Name Role Phone ABIGAIL PERALTA Primary Care [...] PART A Feb 07, 2007 PART A [id number] [phone] ALIYAH COREY PATIENT MEDICARE (WNR) MEDICARE (M) PART A Feb 07, 2007 PART A [id number] [phone] TEQUILA ALIYAH PATIENT Selected Encounter This section includes the information on record at [place] for the Encounter. Date/Time Encounter Type Encounter Description Reason Provider Source Jun 21, 2024 03:00 PM NUBHVL XM PHYS/QHP 1ST HR PCMHI INDIV ICD-10-CM R41.9 Unsp symptoms and signs w cognitive functions and awareness SHANTE BARRAGAN IHToni Encounter Template Text not used by [place] Assessments - Encounter Diagnoses This section includes the primary and secondary diagnoses documented for the Encounter. Date/Time Primary/Secondary Diagnosis Diagnosis Name Provider Source Jun 21, 2024 05:13 PM PRIMARY Unsp symptoms and signs w cognitive functions and awareness SHANTE BARRAGAN [facility] Plan of Treatment: Future Appointments (+ 6 months) and Future Tests (+/- 45 days) The Plan of Treatment section includes future care activities for the patient from all [place] treatmentfacilities. This section includes future appointments and future orders which are active, pending or scheduled. Future Appointments This section includes appointments that were scheduled to occur 6 months from the date of the Encounter, up to a maximum of 20 appointments. The data comes from all [place] treatment facilities. Appointment Date/Time Appointment Type Appointme nt Facility Name Jul 29, 2024 01:00 PM AMBULATORY - MEDICINE [facility] Jul 29, 2024 02:00 PM AMBULATORY - MEDICINE [facility] Aug 10, 2024 08:00 AM AMBULATORY - MEDICINE [facility] Aug 11, 2024 11:00 AM AMBULATORY - NONE [facility] Aug 27, 2024 06:28 AM AMBULATORY - MEDICINE [facility] Sep 02, 2024 01:00 PM AMBULATORY - NONE [facility] Sep 13, 2024 02:00 PM AMBULATORY - MEDICINE [facility] October 08, 2024 10:30 AM AMBULATORY - MEDICINE [facility] October 12, 2024 09:00 AM AMBULATORY - NONE [facility] October 12, 2024 10:00 AM AMBULATORY - NONE [facility] October 25, 2024 02:00 PM AMBULATORY - SURGERY [facility] Nov 15, 2024 02:00 PM AMBULATORY - MEDICINE [facility] Dec 13, 2024 10:00 AM AMBULATORY - MEDICINE [facility] Active, Pending, and Scheduled Orders This section includes a listing of several types of active, pending, and scheduled orders, including clinic medications orders, diagnostic test orders, procedure orders and consult orders; where the start date of the order is 45 days before the date of the Encounter or 45 days after the date of theEncounter. The data comes from all [place] treatment facilities. 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 CMP-NONFASTING (CO) PLASMA Specimen Type: PLASMA No comment entered. Ordering Provider: ABIGAIL PERALTA Report Released Date/Time: Feb 17, 2024 02:39 PM Reporting Lab: [address] [address] Performing Lab: [address] [address] *CREATININE 1.15 mg/dL 0.7-1.3 UREA NITROGEN mg/dL [...] Jun 21, 2024 02:13 PM 52 125/68 [facility] Jun 21, 2024 02:12 PM 98.1 49 135/73 94 0 204 32 [facility] Social History: Smoking Status (Most current) and [...] 02:00 PM VA-TOBACCO USE FOR SATHISH CIGARETTES [facility] Tobacco Use History This section includes a history of the smoking, or tobacco-related health factors, that were collected on or before the date of the Encounter. The data comes from the [place] facility where the Encounter took place. Date/Time Smoking Status/Tobacco Use Comment F acility Jun 21, 2024 02:00 PM VA-TOBACCO USE FOR SATHISH CIGARETTES [facility] Advance Directives: All historical and current Section Date Range: From patient's date of to the date document was created. This section includes ALL of a patient's completed or amended [place] Advance and Rescinded Directives. The entries below indicate that a directive exists for the patient, but an actual copy is not included with this document. The data comes from all [facility]. Date Advance Directives Provider Source October 22, 2022 ADVANCE DIRECTIVE DISCUSSION ARGELIA CHAVEZ LOTUS [facility] Apr 04, 2022 ADVANCE DIRECTIVE DISCUSSION RAY ROQUE [facility] Sep 30, 2020 ADVANCE DIRECTIVE DISCUSSION ILYA BROWN [facility] Jul 26, 2020 ADVANCE DIRECTIVE DISCUSSION FABY TAMEZ [facility] Apr 17, 2020 ADVANCE DIRECTIVE DISCUSSION LINETTE RAMIREZ [facility] Jan 17, 2020 ADVANCE DIRECTIVE DISCUSSION LINETTE RAMIREZ [facility] Feb 24, 2009 ADVANCE DIRECTIVE HECTOR [facility] Pathology Reports: +/- 30 days [...] the Encounter. The data comes from all [place] treatment facilities. Date/Time Pathology Report Provider Source May 28, 2024 09:06 AM LR SURGICAL PATHOL OGY REPORT: LOCAL TITLE: LR SURGICAL PATHOLOGY REPORT STANDARD TITLE: PATHOLOGY REPORT DATE OF NOTE: MAY 28, 2024@09:06:18 ENTRY DATE: MAY 28, 2024@09:06:18 AUTHOR: JOANA HARRIS EXP COSIGNER: URGENCY: STATUS: COMPLETED $APHDR - - [...] - - - - - - SEE OMsignal FOR SCANNED REPORT /santiago/ JOANA HARRIS DIRECTOR OF PATHOLOGY Signed May 28, 2024@09:06 Performing Laboratory: Surgical Pathology Report Performed By: [employer]eche MAHAN [CLIA# [id number]] [address] [place] [address] $FTR - - - - - - [...] - - ALIYAH COREY STANDARD FORM 515 ID:[id number] SEX:M :1940 AGE: 84 LOC:*DERM PCP: Abigail Peralta /santiago/ JOANA HARRIS DIRECTOR OF PATHOLOGY Signed: 05/28/2024 09:06 JOANA HARRIS [facility] Encounter Notes: All associated encounter notes This section contains the clinical notes associated to the Encounter. Date/Time Encounter Note(s) Provider Source Jun 21, 2024 05:05 PM MENTAL HEALTH NOTE: LOCAL TITLE: CO- PCMHI ASSESSMENT NOTE STANDARD TITLE: MENTAL HEALTH NOTE DATE OF NOTE: JUN 21, 2024@17:05 ENTRY DATE: JUN 21, 2024@17:05:44 AUTHOR: SHANTE BARRAGAN EXP COSIGNER: URGENCY: STATUS: COMPLETED PCMHI NEUROBEHAVIORAL STATUS EXAM DATE: JUN 21, 2024 PATIENT: ALIYAH COREY GENDER: MALE AGE: 84 RACE: WHITE DATE OF : Feb SERVICE CONNECTION: 60% NATURE OF ENCOUNTER: Same-day Warm Handoff CPT CODE: 31303 x1 LENGTH OF SESSION: 20 minutes SCORING/INTERPRETING/REPORT IN minutes REASON FOR REFERRAL: Dr. Abigail Peralta referred this patient to Primary Care Psychology for a brief neurobehavioral status exam, mood screen, and subsequent consultation for treatment planning. Reviewed limits of confidentiality with and role of primary care psychologist. The verbalized understanding of the limits of confidentiality and reasons for referral. RELEVANT MEDICAL HISTORY: Per records, remarkable for coronary arteriosclerosis, history of placement of stent for coronary artery disease, benign essential hypertension, benign prostatic hypertrophy with outflow obstruction, h/o angina pectoris, hyperlipidemia, aortic valve regurgitation, current drinker, hiatal hernia, GERD, constipation, exposure to potentially hazardous substance, and difficulty in walking. CURRENT MEDICATIONS: Per records, remarkable for carboxymethylcellulose, nitroglycerin, cyanocobalamin, ranolazine, isosorbide mononitrate, amlodipine, cholecalciferol, lisinopril, rosuvastatin, tamsulosin, omeprazole, metoprolol, clopidogrel, and aspirin. NEUROIMAGING: No neuroimaging found among the available medical records. RISK ASSESSMENT: denied any current or previous suicidal ideation or homicidal ideation and subsequently appears to remain sustainable in an outpatient setting. SUMMARY OF RELEVANT HISTORY/CONCERNS: During this brief assessment, the reported noticing worsening aspects of memory and word-finding challenges. 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 He denied any current or prior diagnoses of psychiatric conditions (e.g., depression, anxiety). He reportedly lives with his and his 40-year-old son, who moved in with them within the last year. BEHAVIORAL OBSERVATIONS: ALERTNESS: Appeared awake and alert, with no fluctuating arousal. ORIENTATION: Grossly oriented x 4. MOOD: Euthymic and otherwise pleasant. AFFECT: Constricted. APPEARANCE: Adequately groomed and appropriately dressed. SPEECH: Intact fluency, rate, tone, and prosody. LANGUAGE: Both expressive and receptive language appeared grossly intact within the context of normal conversation. THOUGHT PROCESS: Organized and goal directed. THOUGHT CONTENT: Unremarkable; without signs of perceptual distortion. EFFORT: Appropriate; the [place] remained cooperative, motivated, and persistent in his effort, and is believed to have worked to the best of his current ability. SENSORY: Hearing and vision appeared intact. MOTOR: Appeared unremarkable for any major concerns in the context of the current evaluation. TEST RESULTS AND INTERPRETATION TESTS ADMINISTERED: Geriatric Anxiety Scale (GAS; 30-item), and Goyo Cognitive Assessment (MoCA). Note: The following johnson provides the qualifiers used to interpret current MoCA results. The qualifiers below are presented according to the [place] [employer] Neuropsychology (AACN) consensus labels: QUALIFIER PERCENTILE STANDARD SCORE Z-SCORE Exceptionally High >98th >130 >2.00 Above Average 91st-97th 120-129 1.33-1.99 High Average 75th-90th 110-119 0.67-1.32 Average 25th-74th 90-109 -0.67-0.66 Low Average 9th-24th 80-89 -1.33-0.68 Below Average 2nd-8th 70-79 -2.00-1.34 Exceptionally Low <2nd <70 <-2.00 The [place] completed a self-report measure of anxiety (i.e., GAS; 30-item) and obtained a raw score of 8, which falls in the 'minimal' range and does not suggest the presence of clinically elevated anxiety at this time. The [place] completed a general mental status screen (i.e., MoCA) and obtained a raw score of 18/30 with a z-score (per UDS calculator) of -2.75, which falls in the exceptionally low range. See data table for more details, including subtest scores, outlined at the end of this report. IMPRESSIONS/RECOMMENDATIONS : Mr. Corey is an 84-year-old, right-handed, , White, male , who was referred to Primary Care Psychology by Dr. Abigail Peralta for brief neurobehavioral status exam and mood screening. During the current examination, performance across a general mental status screen (i.e., MoCA) yielded a total score of 18/30 and an accompanying z-score of -2.75, which falls in the exceptionally low range and suggests a level of cognitive difficulty that is beyond expectation for the 's age and level of education. Of note, the [place] completed a MoCA previously in January 2020, where he obtained a score of 25/30; consequently, performance during the current evaluation revealed an appreciable decline within the last few years at a level that is probably not attributable to the normal aging process alone. Although this could suggest an underlying medical condition such as the early stages of a neurodegenerative process, the diagnosis of such is typically difficult to determine solely on the basis of a single screening instrument. As such, additional, comprehensive neuropsychological testing is recommended for better understanding the 's current cognitive difficulties and for greater diagnostic clarity. In the meantime, ruling out any other potential medical etiologies of cognitive change (e.g., neuroendocrine, metabolic, vitamin deficient) and/or updated neuroimaging--at the discretion of the [place]'s primary care provider--could also be beneficial for improving diagnostic clarity. Pending further cognitive testing, a diagnosis involving an unspecified neurocognitive disorder is provisionally offered. Of note, the [place]'s responses to a self-report measure of mood did not suggest the presence of any clinically significant symptoms of anxiety at this time. The above impressions and recommendations were otherwise shared (and informed) in consultation with the 's referring provider, Dr. Peralta, with the [place]'s consent. DIAGNOSTIC CONSIDERATIONS DSM-5: Unspecified Neurocognitive Disorder ICD-10: R41.9 PLAN OF CARE: Psychology will continue to follow as requested, particularly regarding any future screening required to assess cognitive or psychological change/concerns; or, for brief, time-limited counseling intervention. DATA TABLE: Geriatric Anxiety Scale (GAS; 30-item) Raw Score T-score Description Total 8 46 Minimal Goyo Cognitive Assessment (MoCA) Subtest Raw Score z-score (UDS) Description Visuo/Executive 3/5 -- -- Naming 2/3 -- -- Attention 5/6 -- -- Language 2/3 -- -- Abstraction 0/2 -- -- Delayed Memory 0/5 -- -- Orientation 5/6 -- -- Total 18/30 -2.75 Exceptionally Low /santiago/ SHANTE BARRAGAN PSYCHOLOGIST Signed: 06/21/2024 17:13 SHANTE BARRAGAN [facility]
--- NOTE | 2024-09-25 16:19 | ECG_ITS ---
Test Date: 2024-09-25 16:19:01 Measurements Intervals [place] Rate: 59 P: 240 IL: 164 QRS: -37 QRSD: 146 T: 112 QT: 503 QTc: 502 Interpretive Statements ELECTRONIC ATRIAL PACEMAKER ELECTRONIC VENTRICULAR PACEMAKER BASELINE ARTIFACT0 V1 ATYPICAL ECG Compared to ECG 09/25/2024 16:12:55 NO SIGNIFICANT CHANGE Electronically Signed On 09-26-2024 07:29:36 CDT by Guillermo Celeste D.O.
[2024-09-25 16:26] LABS: Basophils Percent Auto 0.4 % (0.2-1.2); Eosinophils Percent Auto 0.4 % (0-4.4); Hematocrit 40.6 % (42.0-52.0); Hemoglobin 14.2 g/dL (14.0-18.0); Immature Granulocyte Absolute 0.08 K/mm3 (0.00-0.031); Immature Granulocyte Percent A 0.8 % (0-0.5); Immature Platelet Fraction Pct 7.5 % (0.9-11.2); Lymphocytes Absolute Auto 2.16 K/mm3 (0.9-3.2); Lymphocytes Percent Auto 22.8 % (18.3-44.2); Mean Corpuscular Hemoglobin 33.5 pg (26-34); Mean Corpuscular Volume 95.8 fl (80-100); Mean Platelet Volume 11.1 fl (7.4-10.4); Monocytes Absolute Auto 0.7 K/mm3 (0.1-0.6); Monocytes Percent Auto 6.8 % (2.6-8.5); Neutrophils Absolute Auto 6.5 K/mm3 (1.3-6.7); Neutrophils Percent Auto 68.8 % (45.5-73.1); Platelet Count Result 142 k/mm3 (150-375); Red Blood Count 4.24 M/mm3 (4.6-6.20); Red Cell Distribution Width 12.3 % (11.5-14.5); White Blood Count 9.5 K/mm3 (4.5-10.0)
--- NOTE | 2024-09-25 16:26 | ED.GENADULT ---
HPI - General Adult General Chief complaint: Neuro Symptoms/Deficit Stated complaint: bilateral tremors arms and legs Time Seen by Provider: 09/25/24 15:47 History of Present Illness HPI narrative: Patient 84-year-old gentleman who presents emergency department with chief complaint of tremors in bilateral legs. The patient reports that he had a AICD placed in [place] [facility] the patient states that he was in the car while his was playing bingo took a nap and when he woke up he felt groggy and then noticed that he was very shaky patient states when he tried the start of vehicle that his legs were spasming on him whenever he tried to move them the patient reports that his symptoms have improved Related Data Allergies Allergy/AdvReac Type Severity Reaction Status Date / Time No Known Allergies Allergy Verified 09/25/24 15:13 Review of Systems Review of Systems: A 10 system review of systems was completed on the patient and is negative except for what is stated in the HPI. Nursing and ancillary documentation was reviewed. Exam Narrative: GENERAL: Well-appearing, well-nourished, and in no acute distress. HEAD: Normocephalic, atraumatic. EYES: PERRLA and EOMI. ENT: Nares clear, no rhinorrhea or epistaxis. Mucous membranes moist. NECK: Supple. CHEST: Clear to auscultation. No respiratory distress. Pacemaker site intact no bleeding no purulent drainage no erythema HEART: Regular rate and rhythm. No murmur heard. Normal peripheral pulses. ABDOMEN: Soft, nontender, nondistended, normal active bowel sounds. EXTREMITIES: Normal range of motion. No edema. SKIN: Warm, dry, no rash. NEURO: No focal deficits. Alert and oriented x3. PSYCH: Normal mood and affect. Course Vital Signs Vital signs: Vital Signs Pulse Rate 77 09/25/24 14:58 Respiratory Rate 17 09/25/24 14:58 Blood Pressure 154/85 H 09/25/24 14:58 Pulse Oximetry 97 09/25/24 14:58 Temperature 36.4 C L 09/25/24 15:05 Pulse Rate 71 09/25/24 15:09 Respiratory Rate 20 09/25/24 15:05 Blood Pressure 154/85 H 09/25/24 15:05 Pulse Oximetry 96 09/25/24 15:05 Oxygen Delivery Room Air 09/25/24 15:05 Medical Decision Making [facility] Narrative Medical decision making narrative: Differential diagnosis includes dysrhythmia, pacemaker malfunction, electrolyte abnormality, UTI, Chest x-ray showed no acute abnormality The pacemaker was interrogated that showed no malfunction CT brain showed no acute findings Urinalysis showed no evidence UTI troponin was negative Vital Signs Vital Signs: Vital Signs Pulse Rate 77 09/25/24 14:58 Respiratory Rate 17 09/25/24 14:58 Blood Pressure 154/85 H 09/25/24 14:58 Pulse Oximetry 97 09/25/24 14:58 Temperature 36.4 C L 09/25/24 15:05 Pulse Rate 71 09/25/24 15:09 Respiratory Rate 20 09/25/24 15:05 Blood Pressure 154/85 H 09/25/24 15:05 Pulse Oximetry 96 09/25/24 15:05 Oxygen Delivery Room Air 09/25/24 15:05 Lab Data 09/25/24 16:11 09/25/24 16:11 Labs: Lab Results 09/25/24 09/25/24 Range/Units 16:11 16:54 WBC 9.5 (4.5-10.0) K/mm3 RBC 4.24 L (4.6-6.20) M/mm3 Hgb 14.2 (14.0-18.0) g/dL Hct 40.6 L (42.0-52.0) % MCV 95.8 (80-100) fl MCH 33.5 (26-34) pg MCHC 35.0 (32-36) g/dl RDW 12.3 (11.5-14.5) % Plt Count 142 L (150-375) k/mm3 MPV 11.1 H (7.4-10.4) fl Immature Gran % (Auto) 0.8 H (0-0.5) % Neut % (Auto) 68.8 (45.5-73.1) % Lymph % (Auto) 22.8 (18.3-44.2) % [place] % (Auto) 6.8 (2.6-8.5) % Eos % (Auto) 0.4 (0-4.4) % Baso % (Auto) 0.4 (0.2-1.2) % Lymph # (Auto) 2.16 (0.9-3.2) K/mm3 [place] # (Auto) 0.7 H (0.1-0.6) K/mm3 Eos # (Auto) 0.0 (0-0.3) K/mm3 Baso # (Auto) 0.0 (0.0-0.1) K/mm3 Abs Immat Gran (auto) 0.08 H (0.00-0.031) K/mm3 Absolute Neuts (auto) 6.5 (1.3-6.7) K/mm3 Absolute Nucleated RBC 0.000 (0.0-0.012) K/mm3 Nucleated RBC % 0.0 (0.0-0.2) % % Immature Plt Fraction 7.5 (0.9-11.2) % PT 13.8 (11.1-14.7) Seconds INR 1.0 APTT 24.9 (22.3-36.8) Seconds Sodium 136 L (137-145) mmol/L Potassium 4.6 (3.4-5.0) mmol/L Chloride 102 (98-107) mmol/L Carbon Dioxide 24 (22-30) mmol/L Anion Gap 10 (4-12) mmol/L BUN 24 H (9-20) mg/dL Creatinine 1.02 (0.7-1.3) mg/dL Estim Creat Clear Calc 52 ml/min Estimated GFR > 60 (59 - ) Glucose 122 H (65-110) mg/dL Calcium 9.0 (8.4-10.2) mg/dL Magnesium 2.1 (1.6-2.3) mg/dL Total Bilirubin 0.8 (0.2-1.3) mg/dL AST 24 (17-59) U/L ALT 16 (6-50) U/L Alkaline Phosphatase 73 (38-126) U/L Troponin I 0.012 (0.000-0.034) ng/mL Total Protein 7.0 (6.3-8.2) g/dL Albumin 4.3 (3.5-5.1) g/dL Urine Color Yellow (Yellow) Urine Appearance Clear (Clear) Urine pH 5.0 (5.0-9.0) Ur Specific [place] 1.018 (1.001-1.035) Urine Protein Negative (Negative) mg/dL Urine Glucose (UA) Negative (Negative) mg/dL Urine Ketones Negative (Negative) mg/dL Ur Blood (Man) Negative (Negative) Urine Nitrate Negative (Negative) Urine Bilirubin Negative (Negative) Urine Urobilinogen 1.0 (<2.0) mg/dL Leukocyte Esterase Rfl Negative (Negative) BALAJI/UL Discharge Plan Discharge Clinical Impression: Generalized weakness Patient Disposition: Home Condition: Stable Instructions: Antibiotic Form, Weakness (ED) Additional Instructions: Please follow-up with your doctor this week. If your symptoms worsen please return to the emergency department for re-evaluation Patient Language: Swazi Follow-up/Referrals: PHYSICIAN,ASSOCIATE SCIENTIST [Primary Care Provider] - Time of Disposition: 18:53
[2024-09-25 16:28] LABS: Alanine Aminotransferase 16 U/L (6-50); Albumin Level 4.3 g/dL (3.5-5.1); Alkaline Phosphatase 73 U/L (38-126); Anion Gap 10 mmol/L (4-12); Aspartate Amino Transferase 24 U/L (17-59); Bilirubin,Total 0.8 mg/dL (0.2-1.3); Blood Urea Nitrogen 24 mg/dL (9-20); Carbon Dioxide 24 mmol/L (22-30); Chloride 102 mmol/L (98-107); Estimated CRCL calculation 52 ml/min; Estimated Glomerular Filt Rate > 60; Glucose 122 mg/dL (65-110); Magnesium 2.1 mg/dL (1.6-2.3); Potassium 4.6 mmol/L (3.4-5.0); Sodium 136 mmol/L (137-145)
[2024-09-25 16:29] LABS: Prothrombin Time 13.8 Seconds (11.1-14.7)
[2024-09-25 16:30] LABS: Partial Thromboplastin Time 24.9 Seconds (22.3-36.8)
[2024-09-25] MEDS: SODIUM CHLORIDE 0.9% IV 1,000 ML 999 ML IV CONT (16:39)
[2024-09-25 16:40] LABS: Troponin I 0.012 ng/mL (0.000-0.034)
[2024-09-25 17:01] LABS: Add Urine Microscopic? NO; Appearance Urine Clear (Clear); Bilirubin Urine Negative (Negative); Blood Urine Negative (Negative); Color Urine Yellow (Yellow); Glucose Urine UA Negative (Negative); Ketones Urine Negative (Negative); Leukocyte Esterase Ur Negative LEU/UL (Negative); Nitrate Urine Negative (Negative); Protein Urine Negative (Negative); Specific Grav Ur 1.018 (1.001-1.035)
[2024-09-25 18:56] VITALS: BP 147/83; PULSE 76; RESP 16; TEMP 36.6; O2SAT 97
== END 2024-09-25 19:12 | disposition home or self-care (01) ==
PROVIDERS: Emergency Provider Emergency Medicine
DX: R53.1 Weakness (principal)
CPT/HCPCS: 36415; 70450; 71045; 80053; 81003; 83735; 84484; 85025; 85055; 85610; 85730; 93005; 96360; 99284; J7030